=== PATIENT | female | born 1950 | race Caucasian/White ===

== ENCOUNTER → 2017-03-24 | Outpatient (CLI) | payer OTHER, MEDICARE ==
[2017-03-24 07:35] LABS: CH 32.2; CHCM 32.6; HCT 38.8 % (34.0-46.0); HDW 2.49; HGB 12.5 gm/dL (11.4-16.0); MCHC 32.3 g/dL (31.0-37.0); MCV 99.2 fL (80.0-100.0); Mean Platelet Volume 6.7; RBC 3.91 m/uL (3.80-5.40); RDW 13.5 % (11.5-15.5); WBC 7.9 k/uL (3.8-10.6)
[2017-03-24 07:43] LABS: Appearance,Urine Cloudy (Clear); Bacteria,Urine Occasional /hpf; Bilirubin,Urine Negative (Negative); Glucose,Urine (UA) Trace (Negative); Ketones,Urine Negative (Negative); Leukocyte Esterase,Urine Large (Negative); Mucus,Urine Occasional /hpf; Nitrite,Urine Negative (Negative); Particle Count 21335; Protein,Urine 2+ (Negative); RBC,Urine 11 /hpf (0-5); Specific Gravity,Urine 1.022 (1.001-1.035); Squamous Epithelial Cell,Urine 8 /hpf (0-4); UA Billing (MACRO vs. MICRO) MICRO; WBC,Urine 116 /hpf (0-5)
[2017-03-24 09:56] LABS: ALT 30 U/L (9-52); AST 28 U/L (14-36); Alkaline Phosphatase 136 U/L (38-126); Anion Gap 15 mmol/L; Blood Urea Nitrogen 14 mg/dL (7-17); Calcium 9.3 mg/dL (8.4-10.2); Carbon Dioxide 21 mmol/L (22-30); Chloride 108 mmol/L (98-107); Cholesterol 138 mg/dL (<200); Glucose 194 mg/dL (74-99); HDL Cholesterol 61 mg/dL (40-60); Iron 54 ug/dL (37-170); Non-African American GFR(MDRD) 55 (>60 ml/min/1.73 sqM); Potassium 3.8 mmol/L (3.5-5.1); Sodium 144 mmol/L (137-145); Total Bilirubin 0.5 mg/dL (0.2-1.3); Total Protein 7.5 g/dL (6.3-8.2); Triglycerides 252 mg/dL (<150)
[2017-03-24 10:05] LABS: % Iron Saturation 17.1 % (20-50); Total Iron Binding Capacity 315 ug/dL (265-497)
== END | disposition home or self-care (01) ==
LOC: LABWHC1 07:03
PROVIDERS: ATTEND Internal Medicine Interventional Cardiology
DX: N18.3 Chronic kidney disease, stage 3 (moderate) (principal); D50.9 Iron deficiency anemia, unspecified; N39.0 Urinary tract infection, site not specified; R80.9 Proteinuria, unspecified; E21.3 Hyperparathyroidism, unspecified; E55.9 Vitamin D deficiency, unspecified; E78.2 Mixed hyperlipidemia
CPT/HCPCS: 36415; 80053; 80061; 81001; 82043; 82306; 82728; 83540; 83550; 83970; 85027

== ENCOUNTER → 2017-04-29 | Outpatient (CLI) | payer OTHER, MEDICARE ==
[2017-04-29 07:28] LABS: Anion Gap 9 mmol/L; Blood Urea Nitrogen 17 mg/dL (7-17); Calcium 9.3 mg/dL (8.4-10.2); Carbon Dioxide 25 mmol/L (22-30); Chloride 109 mmol/L (98-107); Glucose 111 mg/dL (74-99); Non-African American GFR(MDRD) >60 (>60 ml/min/1.73 sqM); Sodium 143 mmol/L (137-145)
== END | disposition home or self-care (01) ==
LOC: LABWHC1 06:51
PROVIDERS: ATTEND Nurse Practitioner Family
DX: N18.2 Chronic kidney disease, stage 2 (mild) (principal)
CPT/HCPCS: 36415; 80048

== ENCOUNTER 2017-10-22 17:52 | Observation (INO) | payer MEDICARE, OTHER ==
[2017-10-22] MEDS ORDERED: ASPIRIN 81 MG PO STA (18:16)
[2017-10-22] MEDS ORDERED: NITROGLYCERIN OINT 1 INCH/GM PACKET TOPICAL STA (18:16)
--- NOTE | 2017-10-22 18:26 | ED ---
General Adult HPI - General Chief complaint: Chest Pain Stated complaint: chest pressure, has heart Hx Time Seen by Provider: 10/22/17 18:00 Source: patient, RN notes reviewed Mode of arrival: wheelchair Limitations: no limitations - History of Present Illness Initial comments: This is a 67-year-old female presents to the emergency department complaining of chest pain for the last hour and a half. Patient states she is a diabetic with hypertension and high cholesterol per patient states she has a strong family history as well. Patient states the pain radiates up to her left neck. Patient completed a mild shortness of breath. Patient denies any palpitations. Patient denies abdominal pain patient denies nausea vomiting diarrhea. Any recent fever or chills. Patient denies back pain. Patient denies any headache patient denies numbness weakness. Patient denies dizziness lightheadedness or near syncopal episode. - Related Data Home Medications Medication Instructions Recorded Confirmed Atorvastatin [Lipitor] 80 mg PO DAILY 09/11/14 10/22/17 Clopidogrel [Plavix] 75 mg PO DAILY 09/11/14 10/22/17 Ergocalciferol [Vitamin D2 50,000 unit PO Q7D 09/11/14 10/22/17 (DRISDOL)] HYDROcodone/APAP 10-325MG [[place] 2 tab PO TID PRN 09/11/14 10/22/17 10] Insulin Detemir [Levemir] 11 unit SQ HS 09/11/14 10/22/17 Insulin Glulisine [Apidra] 60 unit SQ DAILY 09/11/14 10/22/17 Isosorbide Mononitrate [Imdur] 60 mg PO DAILY 09/11/14 10/22/17 Latanoprost Ophth [Xalatan 0.005%] 1 drop BOTH EYES HS 09/11/14 10/22/17 Metoprolol Tartrate [Lopressor] 25 mg PO BID 09/11/14 10/22/17 Nitroglycerin Sl Tabs [Nitrostat] 0.4 mg SUBLINGUAL Q5M PRN 09/11/14 10/22/17 Aspirin EC [Ecotrin] 81 mg PO DAILY 05/22/16 10/22/17 Dorzolamide HCl/Timolol Maleat 1 drop BOTH EYES BID 05/22/16 10/22/17 [Cosopt Eye Drops] Fexofenadine HCl [Citlaly Allergy] 180 mg PO DAILY PRN 05/22/16 10/22/17 Fluticasone Nasal [place] [Flonase 1 spray EA NOSTRIL DAILY PRN 05/22/16 10/22/17 Nasal [place]] Multivit-Min/Iron/Folic/Lutein 1 tab PO DAILY 05/22/16 10/22/17 [Centrum Silver Women Tablet] Citalopram Hydrobromide [CeleXA] 40 mg PO DAILY 10/22/17 10/22/17 Ferrous Sulfate [Feosol] 325 mg PO DAILY 10/22/17 10/22/17 Furosemide [Lasix] 20 mg PO BID 10/22/17 10/22/17 Hydrocortisone [Hydrocortisone 1 applic TOPICAL BID 10/22/17 10/22/17 0.05%] Insulin NPH Human Isophane 19 unit SQ HS 10/22/17 10/22/17 [humuLIN N] Polyethylene Glycol 3350 [Miralax] 17 gm PO DAILY 10/22/17 10/22/17 Allergies Allergy/AdvReac Type Severity Reaction Status Date / Time diclofenac Allergy Unknown Verified 10/22/17 18:51 peanut Allergy PER Verified 10/22/17 18:51 ALLERGY TEST Penicillins Allergy ITCHING Verified 10/22/17 18:51 AND RED SKIN Review of Systems ROS Statement: Those systems with pertinent positive or pertinent negative responses have been documented in the HPI. ROS Other: All systems not noted in ROS Statement are negative. Past Medical History Past Medical History: Chest Pain / Angina, Diabetes Mellitus, Fibromyalgia, GERD /Reflux, Hyperlipidemia, Hypertension, Myocardial Infarction (ID), Osteoarthritis (OA) Additional Past Medical History / Comment(s): carpal tunnel, retinopathy, glaucoma, neuropathy, eye ailments Last Myocardial Infarction Date:: 10/2013 History of Any Multi-Drug Resistant Organisms: None Reported Past Surgical History: Cholecystectomy, Heart Catheterization, Tubal Ligation Additional Past Surgical History / Comment(s): RIGHT AND LEFT KNEE ARTHROSCOPIC , RIGHT EYE SURGERY, sciatica Past Anesthesia/Blood Transfusion Reactions: No Reported Reaction Past Psychological History: No Psychological Hx Reported Smoking Status: Former smoker Past Alcohol Use History: None Reported Past Drug Use History: None Reported - Past Family History Father Family Medical History: Cancer Mother Family Medical History: Diabetes Mellitus, Myocardial Infarction (ID) General Exam - General Exam Comments Initial Comments: GENERAL: Patient is well-developed and well-nourished. Patient is nontoxic and well- hydrated and is in mild distress. ENT: Neck is soft and supple. No significant lymphadenopathy is noted. Oropharynx is clear. Moist mucous membranes. Neck has full range of motion without eliciting any pain. EYES: The sclera were anicteric and conjunctiva were pink and moist. Extraocular movements were intact and pupils were equal round and reactive to light. Eyelids were unremarkable. PULMONARY: Unlabored respirations. Good breath sounds bilaterally. No audible rales rhonchi or wheezing was noted. CARDIOVASCULAR: There is a regular rate and rhythm without any murmurs gallops or rubs. ABDOMEN: Soft and nontender with normal bowel sounds. No palpable organomegaly was noted. There is no palpable pulsatile mass. SKIN: Skin is clear with no lesions or rashes and otherwise unremarkable. NEUROLOGIC: Patient is alert and oriented x3. Cranial nerves II through XII are grossly intact. Motor and sensory are also intact. Normal speech, volume and content. Symmetrical smile. MUSCULOSKELETAL: Normal extremities with adequate strength and full range of motion. No lower extremity swelling or edema. No calf tenderness. LYMPHATICS: No significant lymphadenopathy is noted PSYCHIATRIC: Normal psychiatric evaluation. Limitations: no limitations Course Vital Signs 10/22/17 10/22/17 17:56 17:59 Temperature 98.6 F Pulse Rate 103 H Respiratory 18 Rate Blood Pressure 220/98 214/93 O2 Sat by Pulse 100 Oximetry Medical Decision Making - Medical Decision Making EKG shows normal sinus rhythm at 76 bpm MO interval is 170 [place] is 74 QT interval 392 QTC is 441 per patient's EKG shows no ST segment elevation or depression or T wave abnormalities are noted. Chest x-ray shows no acute abnormality Patient's labs came back normal as well as her risk factors and clinical presentation I believe the patient was having unstable angina so admitted the patient started heparin. I spoke with Dr. Can he agreed to admit the patient I wrote admitting orders I continue the heparin Nitropaste and aspirin on the floor. I consult cardiology. - Lab Data Result diagrams: 10/22/17 18:13 10/22/17 18:13 Lab Results 10/22/17 10/22/17 10/22/17 Range/Units 18:13 18:13 18:13 WBC 5.9 (3.8-10.6) k/uL RBC 4.06 (3.80-5.40) m/uL Hgb 12.9 (11.4-16.0) gm/dL Hct 38.9 (34.0-46.0) % MCV 95.9 (80.0-100.0) fL MCH 31.7 (25.0-35.0) pg MCHC 33.1 (31.0-37.0) g/dL RDW 13.3 (11.5-15.5) % Plt Count 260 (150-450) k/uL Neutrophils % 64 % Lymphocytes % 27 % Monocytes % 4 % Eosinophils % 3 % Basophils % 0 % Neutrophils # 3.8 (1.3-7.7) k/uL Lymphocytes # 1.6 (1.0-4.8) k/uL Monocytes # 0.2 (0-1.0) k/uL Eosinophils # 0.2 (0-0.7) k/uL Basophils # 0.0 (0-0.2) k/uL PT (9.0-12.0) sec INR (<1.2) APTT (22.0-30.0) sec Sodium 142 (137-145) mmol/L Potassium 4.8 (3.5-5.1) mmol/L Chloride 106 (98-107) mmol/L Carbon Dioxide 24 (22-30) mmol/L Anion Gap 12 mmol/L BUN 14 (7-17) mg/dL Creatinine 0.90 (0.52-1.04) mg/dL Est GFR (MDRD) Af Amer >60 (>60 ml/min/1.73 sqM) Est GFR (MDRD) Non-Af >60 (>60 ml/min/1.73 sqM) Glucose 191 H (74-99) mg/dL Calcium 9.8 (8.4-10.2) mg/dL Magnesium 1.9 (1.6-2.3) mg/dL Total Bilirubin 0.9 (0.2-1.3) mg/dL AST 25 (14-36) U/L ALT 38 (9-52) U/L Alkaline Phosphatase 101 (38-126) U/L Total Creatine Kinase 51 (30-135) U/L CK-MB (CK-2) 0.5 (0.0-2.4) ng/mL CK-MB (CK-2) Rel Index 1.0 Troponin I <0.012 (0.000-0.034) ng/mL Total Protein 7.4 (6.3-8.2) g/dL Albumin 4.0 (3.5-5.0) g/dL 10/22/17 Range/Units 18:13 WBC (3.8-10.6) k/uL RBC (3.80-5.40) m/uL Hgb (11.4-16.0) gm/dL Hct (34.0-46.0) % MCV (80.0-100.0) fL MCH (25.0-35.0) pg MCHC (31.0-37.0) g/dL RDW (11.5-15.5) % Plt Count (150-450) k/uL Neutrophils % % Lymphocytes % % Monocytes % % Eosinophils % % Basophils % % Neutrophils # (1.3-7.7) k/uL Lymphocytes # (1.0-4.8) k/uL Monocytes # (0-1.0) k/uL Eosinophils # (0-0.7) k/uL Basophils # (0-0.2) k/uL PT 10.0 (9.0-12.0) sec INR 1.0 (<1.2) APTT 22.8 (22.0-30.0) sec Sodium (137-145) mmol/L Potassium (3.5-5.1) mmol/L Chloride (98-107) mmol/L Carbon Dioxide (22-30) mmol/L Anion Gap mmol/L BUN (7-17) mg/dL Creatinine (0.52-1.04) mg/dL Est GFR (MDRD) Af Amer (>60 ml/min/1.73 sqM) Est GFR (MDRD) Non-Af (>60 ml/min/1.73 sqM) Glucose (74-99) mg/dL Calcium (8.4-10.2) mg/dL Magnesium (1.6-2.3) mg/dL Total Bilirubin (0.2-1.3) mg/dL AST (14-36) U/L ALT (9-52) U/L Alkaline Phosphatase (38-126) U/L Total Creatine Kinase (30-135) U/L CK-MB (CK-2) (0.0-2.4) ng/mL CK-MB (CK-2) Rel Index Troponin I (0.000-0.034) ng/mL Total Protein (6.3-8.2) g/dL Albumin (3.5-5.0) g/dL Critical Care Time Critical Care Time: Yes Total Critical Care Time: 35 Disposition Clinical Impression: Unstable angina pectoris Disposition: ADMITTED IP TO THIS HOSP Referrals: Tim Osborn MD [Primary Care Provider] - 1-2 days Time of Disposition: 19:09
[2017-10-22 18:33] LABS: Basophils % (A) 0 %; Eosinophils # (A) 0.2 k/uL (0-0.7); Eosinophils % (A) 3 %; HCT 38.9 % (34.0-46.0); HGB 12.9 gm/dL (11.4-16.0); Lymphocytes # (A) 1.6 k/uL (1.0-4.8); Lymphocytes % (A) 27 %; MCH 31.7 pg (25.0-35.0); MCHC 33.1 g/dL (31.0-37.0); MCV 95.9 fL (80.0-100.0); Mean Platelet Volume 6.7; Monocytes # (A) 0.2 k/uL (0-1.0); Monocytes % (A) 4 %; Neutrophils # (A) 3.8 k/uL (1.3-7.7); Neutrophils % (A) 64 %; Platelet Count 260 k/uL (150-450); RBC 4.06 m/uL (3.80-5.40); RDW 13.3 % (11.5-15.5); WBC 5.9 k/uL (3.8-10.6)
[2017-10-22 18:41] LABS: ALT 38 U/L (9-52); AST 25 U/L (14-36); Alkaline Phosphatase 101 U/L (38-126); Anion Gap 12 mmol/L; Blood Urea Nitrogen 14 mg/dL (7-17); Calcium 9.8 mg/dL (8.4-10.2); Carbon Dioxide 24 mmol/L (22-30); Chloride 106 mmol/L (98-107); Glucose 191 mg/dL (74-99); Magnesium 1.9 mg/dL (1.6-2.3); Potassium 4.8 mmol/L (3.5-5.1); Sodium 142 mmol/L (137-145); Total Bilirubin 0.9 mg/dL (0.2-1.3); Total Protein 7.4 g/dL (6.3-8.2)
[2017-10-22 18:46] LABS: Partial Thromboplastin Time 22.8 sec (22.0-30.0)
[2017-10-22 18:52] LABS: Creatine Kinase 51 U/L (30-135)
[2017-10-22 19:05] LABS: Creatine Kinase MB 0.5 ng/mL (0.0-2.4); Troponin I <0.012 ng/mL (0.000-0.034)
[2017-10-22] MEDS ORDERED: HEPARIN SODIUM,PORCINE 5,000 UNIT/ML 1 ML VIAL IV ONE (19:10)
[2017-10-22] MEDS ORDERED: LABETALOL 5 MG/ML VIAL MDV IVP STA (19:11)
[2017-10-22] MEDS ORDERED: NITROGLYCERIN SL TABS 0.4 MG TAB SUBLINGUAL PRN ×2 (19:12→20:56)
[2017-10-22] MEDS ORDERED: HEPARIN SOD,PORK IN 0.45% NACL 25,000 UNIT in 0.45% NACL 1 500ML.BAG IV SCH (19:15)
--- NOTE | 2017-10-22 19:53 | XR ---
EXAMINATION TYPE: XR chest 2V DATE OF EXAM: 10/22/2017 COMPARISON: May 22, 2016 HISTORY: Chest pain TECHNIQUE: Frontal and lateral views of the chest are obtained. FINDINGS: The lungs are clear. No pneumothorax or pleural effusion is identified. Cardiac silhouette is within normal limits. IMPRESSION: No acute cardiopulmonary process.
[2017-10-22 20:41] LABS: Glucose,Whole Blood 165 mg/dL (75-99)
[2017-10-22] MEDS ORDERED: HYDROCORTISONE 1% CREAM 30 GM TUBE TOPICAL PRN (20:56)
[2017-10-22] MEDS ORDERED: FLUTICASONE 50MCG/SPRAY NASAL 16GM EA NOSTRIL PRN (20:56)
[2017-10-22] MEDS ORDERED: LORATADINE 10 MG TAB PO PRN (20:56)
[2017-10-22] MEDS ORDERED: HYDROcodone/APAP 10-325MG 1 EACH TAB PO PRN (20:56)
[2017-10-22] MEDS ORDERED: LATANOPROST 0.005% OPHTH DROPS 2.5 ML BTL RIGHT EYE SCH (21:00)
[2017-10-22] MEDS ORDERED: INSULIN NPH 300 UNIT/3 ML VIAL SQ SCH (21:00)
[2017-10-22] MEDS ORDERED: ACETAMINOPHEN TAB 325 MG TAB PO PRN (21:08)
[2017-10-22] MEDS ORDERED: INSULIN GLULISINE SQ SCH (21:15)
[2017-10-22] MEDS ORDERED: INSULIN ASPART 100 UNIT/ML 1 ML 10 ML VIAL SQ SCH (21:15)
[2017-10-22] MEDS: ATORVASTATIN 80 MG TAB PO SCH (23:01)
[2017-10-22] MEDS: ASPIRIN 81 MG PO SCH (23:01)
[2017-10-22] MEDS: DORZOLAMIDE-TIMOLOL 2-0.5% DROPS 10 ML BTL BOTH EYES SCH (23:01)
[2017-10-22] MEDS: METOPROLOL TARTRATE 25 MG TAB PO SCH (23:02)
[2017-10-22] MEDS: FUROSEMIDE 20 MG TAB PO SCH (23:02)
[2017-10-23 01:41] LABS: Creatine Kinase MB 0.8 ng/mL (0.0-2.4)
[2017-10-23 01:49] LABS: Troponin I 0.036 ng/mL (0.000-0.034)
[2017-10-23] MEDS: NITROGLYCERIN OINT 1 INCH/GM PACKET TOPICAL SCH ×3 (02:45→12:09)
[2017-10-23 03:39] VITALS: RESP 18
[2017-10-23 03:59] LABS: Glucose,Whole Blood 62 mg/dL (75-99)
[2017-10-23 04:18] LABS: Glucose,Whole Blood 81 mg/dL (75-99)
[2017-10-23] MEDS ORDERED: HEPARIN SODIUM,PORCINE 5,000 UNIT/ML 1 ML VIAL IV PRN (05:11)
[2017-10-23 06:05] LABS: Glucose,Whole Blood 124 mg/dL (75-99)
[2017-10-23] MEDS: INSULIN ASPART 100 UNIT/ML 1 ML 10 ML VIAL SQ SCH ×2 (06:15→12:10)
[2017-10-23 06:29] LABS: Basophils % (A) 1 %; Eosinophils # (A) 0.3 k/uL (0-0.7); Eosinophils % (A) 4 %; HCT 36.3 % (34.0-46.0); HGB 11.9 gm/dL (11.4-16.0); Lymphocytes # (A) 1.9 k/uL (1.0-4.8); Lymphocytes % (A) 28 %; MCH 31.8 pg (25.0-35.0); MCHC 32.9 g/dL (31.0-37.0); MCV 96.7 fL (80.0-100.0); Mean Platelet Volume 6.7; Monocytes # (A) 0.3 k/uL (0-1.0); Monocytes % (A) 5 %; Neutrophils # (A) 3.9 k/uL (1.3-7.7); Neutrophils % (A) 60 %; Platelet Count 275 k/uL (150-450); RBC 3.75 m/uL (3.80-5.40); RDW 13.5 % (11.5-15.5); WBC 6.5 k/uL (3.8-10.6)
[2017-10-23 07:10] LABS: Creatine Kinase MB 0.9 ng/mL (0.0-2.4)
[2017-10-23 07:18] LABS: Troponin I 0.053 ng/mL (0.000-0.034)
[2017-10-23 07:24] LABS: Anion Gap 7 mmol/L; Blood Urea Nitrogen 18 mg/dL (7-17); Calcium 9.8 mg/dL (8.4-10.2); Carbon Dioxide 28 mmol/L (22-30); Chloride 108 mmol/L (98-107); Cholesterol 125 mg/dL (<200); Glucose 131 mg/dL (74-99); HDL Cholesterol 54 mg/dL (40-60); LDL Cholesterol,Calculated 49 mg/dL (0-99); Potassium 4.3 mmol/L (3.5-5.1); Sodium 143 mmol/L (137-145); Triglycerides 111 mg/dL (<150)
[2017-10-23] MEDS ORDERED: INSULIN ASPART 100 UNIT/ML 1 ML 10 ML VIAL SQ SCH ×2 (07:30→12:30)
[2017-10-23] MEDS: ATORVASTATIN 80 MG TAB PO SCH (08:07)
[2017-10-23] MEDS: ASPIRIN 81 MG PO SCH (08:07)
[2017-10-23] MEDS: FUROSEMIDE 20 MG TAB PO SCH (08:07)
[2017-10-23] MEDS: METOPROLOL TARTRATE 25 MG TAB PO SCH (08:08)
[2017-10-23] MEDS: DORZOLAMIDE-TIMOLOL 2-0.5% DROPS 10 ML BTL BOTH EYES SCH (08:10)
[2017-10-23] MEDS ORDERED: CLOPIDOGREL 75 MG TAB PO SCH (09:00)
[2017-10-23] MEDS ORDERED: POLYETHYLENE GLYCOL 3350 17 GM POWD.PACK PO SCH (09:00)
[2017-10-23] MEDS ORDERED: FERROUS SULFATE 325 MG TAB PO SCH (09:00)
[2017-10-23] MEDS ORDERED: CITALOPRAM HYDROBROMIDE 20 MG TAB PO SCH (09:00)
[2017-10-23] MEDS ORDERED: ASPIRIN 325 MG TAB PO SCH (09:00)
[2017-10-23] MEDS ORDERED: INSULIN DETEMIR 100 UNIT/ML 10 ML VIAL SQ SCH (09:00)
[2017-10-23] MEDS ORDERED: ISOSORBIDE MONONITRATE ER 60 MG TAB.ER.24H PO SCH (09:00)
[2017-10-23 09:16] LABS: Appearance,Urine Clear (Clear); Bacteria,Urine Rare /hpf; Bilirubin,Urine Negative (Negative); Blood,Urine Negative (Negative); Color,Urine Yellow; Glucose,Urine (UA) Negative (Negative); Hyaline Casts,Urine 6 /lpf (0-2); Ketones,Urine Negative (Negative); Leukocyte Esterase,Urine Small (Negative); Mucus,Urine Rare /hpf; Nitrite,Urine Negative (Negative); Protein,Urine Negative (Negative); RBC,Urine 2 /hpf (0-5); Squamous Epithelial Cell,Urine 1 /hpf (0-4); Urobilinogen,Urine <2.0 mg/dL (<2.0); WBC,Urine 2 /hpf (0-5)
[2017-10-23 11:43] VITALS: BMI 42.2
[2017-10-23 11:50] LABS: Glucose,Whole Blood 152 mg/dL (75-99)
[2017-10-23 11:52] VITALS: BP 150/67; PULSE 62; TEMP 96.1
[2017-10-23] MEDS ORDERED: MULTIVITAMINS, THERA 1 EACH TAB PO SCH (12:00)
--- NOTE | 2017-10-23 12:54 | HP ---
HISTORY AND PHYSICAL NEW DATA: She is a 5 foot 7 inches height, weight 122.3 kg, BSA 2.30 m2, BMI 42.2 kg/m2. ALLERGY: DICLOFENAC, PEANUTS AND PENICILLIN. CHIEF COMPLAINT: The patient presented. She is a patient of Dr. Osborn and in the temporary absence for holidays. Dr. Can seeing the patient and dictating the history and physical. The patient was seen in the emergency room and subsequently admitted to the hospital and seen by Gurjit Yan. At that time they did a chest x-ray and was no acute pulmonary abnormality, but she presented with the chief complaint of chest pain. HISTORY OF PRESENT ILLNESS: A 67-year-old white female presented to the emergency department with chest pain which was lasted 1 hour and half according to Dr. Del Valle. The patient is a diabetic and hypertensive, hyperlipidemic, with the underlying strong family history. Her chest pain was present at the upper left upper chest and that pain went to the neck, radiated to the neck and that was in the 8/10 grade. She had nausea with it. No vomiting. No palpitation and no blurred vision. She did 1 nitroglycerin, but no aspirin and subsequently received another nitroglycerin at home, however, did not give much of relief. She subsequently called to come to the hospital and she had nitroglycerin caused her headache. The patient has x2 myocardial infarction and the last one was 2013 and she underwent cardiac catheterization by Dr. Juarez with no stent placement and that was 4 years ago. PAST MEDICAL HISTORY: On the past medical history she has history of nosebleeds because of the Plavix and 2 weeks ago she had left leg numbness from the buttocks area down to the leg and she was not able at that time to walk with her cane and at that time, Dr. Osborn saw the patient and gave her prednisone and gradual descended and she has arthritis of the back. Past history of fibromyalgia and she has also history prior to that she has nausea, vomiting twice and the etiology was unknown at that time. Her current chest pain arrived at 5:00 pm last night and with a chest pressure across the left side of the chest, radiated to the neck was 8/10 grade and as mentioned above. Her other past medical history as mentioned, diabetes mellitus type 2, insulin dependent, and she has been diabetic for 36 years with the underlying diabetic neuropathy. She has not taking any longer Neurontin, but she has taken hydrocodone 2 tablet every 8 hour p.r.n. She tried to avoid being addiction to that and she take it has p.r.n. when the pain gets worse. She had history of hypertension as mentioned, arthritis, and she had glaucoma and fibromyalgia. She had kidney failure in 1 year ago, however, that was cleared and Dr. Jimenez, Nephrology did clear her up from the kidney function. SURGICAL HISTORY: She had a bilateral carpal tunnel of the wrist of the hand. Also, she had a bilateral arthroscopy of the knee. She had laparoscopic cholecystectomy and she had a tubal ligation and she had four eye surgeries including cataract and glaucoma. Her eye doctor, Dr. Coulter and Dr. Gutierrez at the [facility]. She had also cyst on her back with the pilonidal cyst and that was removed as well. OBSTETRIC HISTORY: She had 4 pregnancies that ended in miscarriage and no hysterectomy. SOCIAL HISTORY: Smoking, she had quit smoking 40 years ago and she also stopped drinking at that time, but she smoked before 10 years total. 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 She had hemoglobin A1c 6.1 in the past. However, when she gets the pain in the back and numbness in the left leg and started on steroid, her hemoglobin jumped up to 7.1. ALLERGIES: On the allergy has been mentioned above. MEDICATIONS: Her current medication was she was on: 1. Lipitor for hyperlipidemia 80 mg once a daily. 2. Clopidogrel. 3. Plavix 75 mg daily. 4. Vitamin D2 50,000 every once a week. 5. She has been on hydrocodone 10/325 two tablets t.i.d. p.r.n. and she tried not to take it except as needed maybe once or twice a week. 6. She is on Levemir insulin and 11 units at bedtime. 7. Apidra 60 units subcu daily. Her endocrinology is Dr. Dickey the new baby counselor that he works with Dr. Stefania Marcus. 8. She is also on isosorbide mononitrate Imdur 60 mg daily. 9. She has Lopressor 25 mg twice a day. 10.Nitroglycerin sublingual 0.4 mg. 11.Aspirin enteric-coated 81 mg daily. 12.She has eyedrops Latanoprost, Xalatan 0.005% 1 drop in both eyes as well as she has been on Cosopt, eyedrops which 1 drop in both eyes. 13.She is on fluticasone nasal spray for her nasal congestion. 14.Multivitamin with iron and folic acid and lutein 1 tablet daily. 15.She is on citalopram for underlying anxiety and depression. 16.Ferrous sulfate 325 mg daily. 17.Furosemide 20 mg b.i.d. 18.Hydrocortisone cream twice a day. 19.Insulin NPH 19 units at bedtime. 20.Polyethylene glycol 17 g in juice or water. REVIEW OF THE SYSTEM: Neuropsychiatry: She had no headache and no blurred vision. No falling attacks. No history of strokes. On the cardiovascular: Currently the chest pain that arrived last night and she has been seen before and followed by Dr. Juarez and she had a cardiac cath as mentioned in the past in 2013 or 2012. On the respiratory: No cough or expectoration. GI: No hematochezia. No hematochezia or hematemesis or melena. However, she has history of recently 2 weeks ago with epistaxis and that was not present at this time. : She had no dysuria or hematuria, however, positive incontinent and that is continuous, which is minimal. Musculoskeletal: She had fibromyalgia and that has been chronic and she has been able to handle it with the treatment given by Dr. Osborn, the attending. With reviewing of the system was otherwise initially negative as I reviewed the 14 points. With history of GERD disease. On the history as mentioned as mentioned above family history of cancer and diabetes mellitus. No history of blood transfusion reaction, and she has a cardiac catheterization as mention. PHYSICAL EXAMINATION: General examination: The patient is well-developed, obese, nourished, well hydrated. She had the chest pain at that time. However, on the floor she is fine. No chest pain at this time. On the review of her vital signs indicating that today her temperature 96.1 orally, pulse 62, respiratory rate 18, her blood pressure 150/67 with a mean blood pressure 94 previous to that 141/69 with a mean 93 and pulse ox was 96%. On the exam the patient is conscious, alert, oriented x3. No chest pain at the time, the neck was supple and oropharynx was normal. She had several surgery and the implant on the right eye with irregular pupil in both sides and with several surgeries by the procurement intern. Neck was supple. No JVD. No thyromegaly. No lymphadenopathy. Trachea midline and the chest was mildly increased anteroposterior diameter with normal breath sounds and no wheezes. No rhonchi and the heart PMI in the 5th intercostal space with normal S1, S2. No gallops with the mild cardiomegaly. The abdomen was soft and nontender. Positive bowel sounds. No organ enlargement and the extremities: She had a varicose veins but no edema and positive pulses bilateral and symmetrical. No currently numbness of the left leg. Sensation was intact. However, she had diabetic neuropathy with the 36 years of insulin dependent. Neurologically: Stable. ASSESSMENT: 1. Chest pain with the underlying unstable angina, mild elevation of troponin. 2. Underlying history of hypertension with hypertensive heart disease. 3. Diabetes mellitus type 2, insulin dependent. 4. History of fibromyalgia. 5. Hyperlipidemia. 6. History of glaucoma. PLAN: The patient in currently on heparin protocol as well and she is on the Plavix and will be seen by Dr. Rodger Marcus right away and will be evaluated. The patient is currently on observation status and tomorrow is and today is Kenvir Eve and she was concerned about her being on observation and how she can pay her bills with being outpatient and we will be discussing with her RN as well as she will relay that to Dr. Rodger Marcus. If there is no further investigation, she will be able to go home. We also Dr. Rodger Marcus ordered another set of troponin to see if this will be continue to rise or need further testing. MMODL / IJN: [id number] /
--- NOTE | 2017-10-23 13:31 | P.DS ---
Providers Date of admission: 10/22/17 19:09 Discharge on 10/23/2017 from observation. Final diagnosis chest pain with possible unstable angina, minimal troponin elevation. And cleared by cardiology Dr. LUIS ANTONIO Marcus for discharge Diabetes mellitus type 2 insulin-dependent. Fibromyalgia Hypertension was hypertensive heart disease. Advanced degenerative osteoarthritis as well as discogenic disease. Hyperlipidemia She is on Plavix. Patient stable on discharge without chest pain. History and physical dictated dictation #[id number]. On exam [id number] on discharge. No chest pain HEENT was negative, neck was supple, chest was clear, heart was regular sinus rhythm. Abdomen was soft positive bowel sounds no tenderness of the 4 quadrants. Extremities no edema and positive pulses. Neurologically stable ambulatory. Assessment on discharge stable without any chest pain laboratory already reviewed by Dr. LUIS ANTONIO Marcus cardiology and cleared for discharge Follow-up with Dr. Osborn as well as Dr. Billings cardiology next week, PCP has Dr. Osborn. Patient will be discharged on her home home medication no new medicine added to her discharge. Expected date of discharge: 10/23/17 Attending physician: Tim Osborn Consults: 10/22/17 19:12 Consult Physician Urgent Consulting Provider: [facility] Consult Reason/Comments: Unstable angina Do you want consulting provider notified?: Yes Primary care physician: Tim Osborn Plan - Discharge Summary New Discharge Prescriptions: Continue Insulin Detemir [Levemir] 11 unit SQ DAILY Atorvastatin [Lipitor] 80 mg PO HS Metoprolol Tartrate [Lopressor] 25 mg PO BID Isosorbide Mononitrate [Imdur] 60 mg PO DAILY Clopidogrel [Plavix] 75 mg PO DAILY HYDROcodone/APAP 10-325MG [[place] 10-325] 2 tab PO TID PRN PRN Reason: Pain Nitroglycerin Sl Tabs [Nitrostat] 0.4 mg SUBLINGUAL Q5M PRN PRN Reason: Chest Pain Latanoprost Ophth [Xalatan 0.005%] 1 drop RIGHT EYE HS Insulin Glulisine [Apidra] 18 unit SQ AC-BRKFST Ergocalciferol [Vitamin D2 (DRISDOL)] 50,000 unit PO Q7D Aspirin EC [Ecotrin Low Dose] 81 mg PO HS Dorzolamide HCl/Timolol Maleat [Cosopt Eye Drops] 1 drop BOTH EYES BID Multivit-Min/Iron/Folic/Lutein [Centrum Silver Women Tablet] 1 tab PO DAILY Fexofenadine HCl [Citlaly Allergy] 180 mg PO HS PRN PRN Reason: Allergy Symptoms Fluticasone Nasal [place] [Flonase Nasal [place]] 1 spray EA NOSTRIL DAILY PRN PRN Reason: Congestion Hydrocortisone [Hydrocortisone 0.05%] 1 applic TOPICAL BID Polyethylene Glycol 3350 [Miralax] 17 gm PO DAILY Ferrous Sulfate [Iron (65 MG Elemental)] 325 mg PO DAILY Furosemide [Lasix] 20 mg PO BID Citalopram Hydrobromide [CeleXA] 40 mg PO DAILY Insulin NPH Human Isophane [humuLIN N] 21 unit SQ HS Insulin Glulisine [Apidra] 0 unit SQ ACHS Insulin Glulisine [Apidra] 15 unit SQ AC-SUPPER Insulin Glulisine [Apidra] 14 unit SQ AC-LUNCH Discharge Medication List Atorvastatin [Lipitor] 80 mg PO HS 09/11/14 [History] Clopidogrel [Plavix] 75 mg PO DAILY 09/11/14 [History] Ergocalciferol [Vitamin D2 (DRISDOL)] 50,000 unit PO Q7D 09/11/14 [History] HYDROcodone/APAP 10-325MG [[place] 10-325] 2 tab PO TID PRN 09/11/14 [History] Insulin Detemir [Levemir] 11 unit SQ DAILY 09/11/14 [History] Insulin Glulisine [Apidra] 18 unit SQ AC-BRKFST 09/11/14 [History] Isosorbide Mononitrate [Imdur] 60 mg PO DAILY 09/11/14 [History] Latanoprost Ophth [Xalatan 0.005%] 1 drop RIGHT EYE HS 09/11/14 [History] Metoprolol Tartrate [Lopressor] 25 mg PO BID 09/11/14 [History] Nitroglycerin Sl Tabs [Nitrostat] 0.4 mg SUBLINGUAL Q5M PRN 09/11/14 [History] Aspirin EC [Ecotrin Low Dose] 81 mg PO HS 05/22/16 [History] Dorzolamide HCl/Timolol Maleat [Cosopt Eye Drops] 1 drop BOTH EYES BID 05/22/16 [History] Fexofenadine HCl [Citlaly Allergy] 180 mg PO HS PRN 05/22/16 [History] Fluticasone Nasal [place] [Flonase Nasal [place]] 1 spray EA NOSTRIL DAILY PRN 05/22 [History] Multivit-Min/Iron/Folic/Lutein [Centrum Silver Women Tablet] 1 tab PO DAILY [History] Citalopram Hydrobromide [CeleXA] 40 mg PO DAILY 10/22/17 [History] Ferrous Sulfate [Iron (65 MG Elemental)] 325 mg PO DAILY 10/22/17 [History] Furosemide [Lasix] 20 mg PO BID 10/22/17 [History] Hydrocortisone [Hydrocortisone 0.05%] 1 applic TOPICAL BID 10/22/17 [History] Insulin Glulisine [Apidra] 0 unit SQ ACHS 10/22/17 [History] Insulin Glulisine [Apidra] 14 unit SQ AC-LUNCH 10/22/17 [History] Insulin Glulisine [Apidra] 15 unit SQ AC-SUPPER 10/22/17 [History] Insulin NPH Human Isophane [humuLIN N] 21 unit SQ HS 10/22/17 [History] Polyethylene Glycol 3350 [Miralax] 17 gm PO DAILY 10/22/17 [History] Follow up Appointment(s)/Referral(s): Tim Osborn MD [Primary Care Provider] - 1-2 days
[2017-10-23 20:15] LABS: Hemoglobin A1C 7.1 % (4.0-6.0)
--- NOTE | 2017-10-24 08:49 | CONS ---
CONSULTATION This is a 67-year-old lady, a patient who sees Dr. Juarez in the outpatient setting. Her primary care physician is Dr. Tim Osborn. She came into the hospital with complaints of left anterior chest pain with actually tenderness which she is able to show me exactly where she feels her tenderness and this has gotten better. She has a history in the past of acute renal failure, chronic diffuse CAD based on previous cardiac cath and is known to have borderline troponin elevation in the past. She comes in with symptoms of nondescript atypical chest pain and had a borderline troponin elevation in the range of 0.03 0.05 and 0.04. All of these are flat. The pattern is not suggestive of any myocardial injury. The patient is resting comfortably without symptoms. Her pain in the left anterior chest is almost reproducible. She is asymptomatic at the time of my evaluation. EKG also revealed a sinus rhythm with nonspecific ST abnormality. PAST MEDICAL HISTORY: 1. Remarkable for type 2 diabetes with mild renal failure. She had an episode of acute renal failure, but from which she recovered nicely. 2. Hypertension. 3. CAD, diffuse in nature, on medical therapy. 4. History of anemia. 5. History of this COPD/bronchial asthma. ALLERGIES: Patient is allergic to penicillin. She also has history of underlying fibromyalgia. She is status post cholecystectomy and tubal ligation. MEDICATIONS: At home include Imdur 60 mg daily, Lopressor 25 mg b.i.d., Lasix 20 mg b.i.d., insulin, she takes Lipitor 80 mg daily, Plavix 75 mg daily, aspirin 81 mg daily. EXAMINATION: Blood pressure is 140/70, pulse rate is 70 per minute regular HEENT unremarkable. Fundus was not examined by me. NECK: Supple. There is bilateral soft carotid bruit and apparently patient had a recent carotid Doppler that was unremarkable. Heart exam reveals S1, S2 heard normally with a short systolic murmur at the base. Second heart sound is preserved lungs are clear. ABDOMEN: Soft, nontender. There is tenderness in the left anterior chest wall. Lower extremities reveal palpable pulses. No edema. Central nervous system is normal EKG revealed sinus mechanism, no acute changes, minor nonspecific ST abnormality. Laboratory data suggests borderline equivocal troponins not suggestive of myocardial injury. IMPRESSION: 1. Atypical chest pain. 2. History of known CAD. 3. Hypertension. 4. History of type 2 diabetes mellitus. RECOMMENDED: I am recommending that we can increase activity. If she has no further symptoms she can be discharged and follow up with Dr. Juarez and Dr. Osborn in outpatient. I discussed my thoughts in detail with the patient. Thank you very much for the consult. VALERIE / INGRIS: [id number] /
[2017-10-29] MEDS ORDERED: ERGOCALCIFEROL 50,000 UNIT CAP PO SCH (09:00)
== END 2017-10-23 14:05 | disposition home or self-care (01) ==
LOC: EC 17:52 → 6SEL 19:09
PROVIDERS: ADMIT Internal Medicine; ATTEND Internal Medicine
DX: R07.89 Other chest pain (principal); R74.8 Abnormal levels of other serum enzymes; R11.0 Nausea; E78.5 Hyperlipidemia, unspecified; E78.00 Pure hypercholesterolemia, unspecified; K21.9 Gastro-esophageal reflux disease without esophagitis; I13.10 Hypertensive heart and chronic kidney disease without heart failure, with stage 1 through stage 4 chronic kidney disease, or unspecified chronic kidney disease; N18.9 Chronic kidney disease, unspecified; E11.319 Type 2 diabetes mellitus with unspecified diabetic retinopathy without macular edema; E11.40 Type 2 diabetes mellitus with diabetic neuropathy, unspecified; E11.22 Type 2 diabetes mellitus with diabetic chronic kidney disease; F41.9 Anxiety disorder, unspecified; F32.9 Major depressive disorder, single episode, unspecified; M79.7 Fibromyalgia; M19.90 Unspecified osteoarthritis, unspecified site; M54.30 Sciatica, unspecified side; D64.9 Anemia, unspecified; H40.9 Unspecified glaucoma; J44.9 Chronic obstructive pulmonary disease, unspecified; E66.9 Obesity, unspecified; Z68.41 Body mass index [BMI] 40.0-44.9, adult; I25.2 Old myocardial infarction; I25.10 Atherosclerotic heart disease of native coronary artery without angina pectoris; Z87.891 Personal history of nicotine dependence; Z79.899 Other long term (current) drug therapy; Z79.02 Long term (current) use of antithrombotics/antiplatelets; Z79.4 Long term (current) use of insulin; Z79.82 Long term (current) use of aspirin; Z88.8 Allergy status to other drugs, medicaments and biological substances; Z91.010 Allergy to peanuts; Z88.0 Allergy status to penicillin; Z80.9 Family history of malignant neoplasm, unspecified; M47.819 Spondylosis without myelopathy or radiculopathy, site unspecified
CPT/HCPCS: 99291; 96374; 96376; 36415; 94760; 83880; 80061; 80053; 80048; 82550 ×2; 82553 ×2; 83735; 84484 ×2; 85025 ×2; 85610; 85730 ×2; 81001; 87086; 83036; 71020; G0378 ×2; J1644 ×3; 93005

== ENCOUNTER 2018-01-22 10:25 | Inpatient (IN) | payer OTHER, MEDICARE ==
[2018-01-22] MEDS ORDERED: ASPIRIN 81 MG PO STA (10:40)
[2018-01-22] MEDS ORDERED: NITROGLYCERIN OINT 1 INCH/GM PACKET TOPICAL STA (10:40)
--- NOTE | 2018-01-22 10:43 | ED ---
General Adult HPI - General Chief complaint: Chest Pain Stated complaint: Chest Pain Time Seen by Provider: 01/22/18 10:25 Source: patient, EMS, RN notes reviewed Mode of arrival: EMS - History of Present Illness Initial comments: This is a 67-year-old female with past medical history significant for SD, diabetes, hypertension and high cholesterol. Patient states she has pain in her neck bilaterally and it radiates up into her left jaw. Patient states she was also nauseated at about 9:00 and vomited times one. Patient states she took a nitroglycerin at this time and help with the pain considerably. She states she had a little bit of chest pressure but no difficulty breathing or shortness of breath. Patient denies abdominal pain. Patient denies any recent fever chills or cough. Patient denies dizziness lightheadedness. Patient denies any increased swelling of her legs or any calf tenderness. - Related Data Home Medications Medication Instructions Recorded Confirmed Atorvastatin [Lipitor] 80 mg PO HS 09/11/14 01/22/18 Clopidogrel [Plavix] 75 mg PO DAILY 09/11/14 01/22/18 Ergocalciferol [Vitamin D2 50,000 unit PO SA 09/11/14 01/22/18 (DRISDOL)] HYDROcodone/APAP 10-325MG [[place] 2 tab PO Q4H PRN 09/11/14 01/22/18 10-325] Insulin Detemir [Levemir] 14 unit SQ DAILY 09/11/14 01/22/18 Insulin Glulisine [Apidra] 18 unit SQ AC-BRKFST 09/11/14 01/22/18 Isosorbide Mononitrate [Imdur] 60 mg PO DAILY 09/11/14 01/22/18 Latanoprost Ophth [Xalatan 0.005%] 1 drop RIGHT EYE HS 09/11/14 01/22/18 Metoprolol Tartrate [Lopressor] 25 mg PO BID 09/11/14 01/22/18 Nitroglycerin Sl Tabs [Nitrostat] 0.4 mg SUBLINGUAL Q5M PRN 09/11/14 01/22/18 Aspirin EC [Ecotrin Low Dose] 81 mg PO HS 05/22/16 01/22/18 Fexofenadine HCl [Citlaly Allergy] 180 mg PO HS PRN 05/22/16 01/22/18 Fluticasone Nasal [place] [Flonase 1 spray EA NOSTRIL DAILY PRN 05/22/16 01/22/18 Nasal [place]] Multivit-Min/Iron/Folic/Lutein 1 tab PO DAILY 05/22/16 01/22/18 [Centrum Silver Women Tablet] Citalopram Hydrobromide [CeleXA] 40 mg PO DAILY 10/22/17 01/22/18 Ferrous Sulfate [Iron (65 MG 325 mg PO DAILY 10/22/17 01/22/18 Elemental)] Furosemide [Lasix] 20 mg PO BID 10/22/17 01/22/18 Hydrocortisone [Hydrocortisone 1 applic TOPICAL BID PRN 10/22/17 01/22/18 0.05%] Insulin Glulisine [Apidra] 14 unit SQ AC-LUNCH 10/22/17 01/22/18 Insulin Glulisine [Apidra] 16 unit SQ AC-SUPPER 10/22/17 01/22/18 Insulin Glulisine [Apidra] See Protocol SQ ACHS 10/22/17 01/22/18 Insulin NPH Human Isophane 21 unit SQ HS 10/22/17 01/22/18 [humuLIN N] Polyethylene Glycol 3350 [Miralax] 17 gm PO DAILY PRN 10/22/17 01/22/18 Ciprofloxacin HCl [Cipro] 250 mg PO Q12HR 01/22/18 01/22/18 Montelukast [Singulair] 10 mg PO HS 01/22/18 01/22/18 Omeprazole 40 mg PO AC-BRKFST 01/22/18 01/22/18 Timolol 0.5% Ophth Soln [Timoptic 1 drop BOTH EYES BID 01/22/18 01/22/18 0.5% Ophth Soln] Allergies Allergy/AdvReac Type Severity Reaction Status Date / Time diclofenac Allergy Unknown Verified 01/22/18 11:31 peanut Allergy PER Verified 01/22/18 11:31 ALLERGY TEST Penicillins Allergy ITCHING Verified 01/22/18 11:31 AND RED SKIN Review of Systems ROS Statement: Those systems with pertinent positive or pertinent negative responses have been documented in the HPI. ROS Other: All systems not noted in ROS Statement are negative. Past Medical History Past Medical History: Chest Pain / Angina, Diabetes Mellitus, Fibromyalgia, GERD /Reflux, Hyperlipidemia, Hypertension, Myocardial Infarction (SD), Osteoarthritis (OA) Additional Past Medical History / Comment(s): carpal tunnel, retinopathy, glaucoma, neuropathy, eye ailments Last Myocardial Infarction Date:: 10/2013 History of Any Multi-Drug Resistant Organisms: None Reported Past Surgical History: Cholecystectomy, Heart Catheterization, Tubal Ligation Additional Past Surgical History / Comment(s): RIGHT AND LEFT KNEE ARTHROSCOPIC , RIGHT EYE SURGERY, sciatica Past Anesthesia/Blood Transfusion Reactions: No Reported Reaction Past Psychological History: No Psychological Hx Reported Smoking Status: Former smoker Past Alcohol Use History: None Reported Past Drug Use History: None Reported - Past Family History Father Family Medical History: Cancer Mother Family Medical History: Diabetes Mellitus, Myocardial Infarction (SD) General Exam - General Exam Comments Initial Comments: GENERAL: Patient is well-developed and well-nourished. Patient is nontoxic and well- hydrated and is in mild distress. ENT: Neck is soft and supple. No significant lymphadenopathy is noted. Oropharynx is clear. Moist mucous membranes. Neck has full range of motion without eliciting any pain. EYES: The sclera were anicteric and conjunctiva were pink and moist. Extraocular movements were intact and pupils were equal round and reactive to light. Eyelids were unremarkable. PULMONARY: Unlabored respirations. Good breath sounds bilaterally. No audible rales rhonchi or wheezing was noted. CARDIOVASCULAR: There is a regular rate and rhythm without any murmurs gallops or rubs. ABDOMEN: Soft and nontender with normal bowel sounds. Patient is morbidly obese SKIN: Skin is clear with no lesions or rashes and otherwise unremarkable. NEUROLOGIC: Patient is alert and oriented x3. Cranial nerves II through XII are grossly intact. Motor and sensory are also intact. Normal speech, volume and content. Symmetrical smile. MUSCULOSKELETAL: Normal extremities with adequate strength and full range of motion. No lower extremity swelling or edema. No calf tenderness. LYMPHATICS: No significant lymphadenopathy is noted PSYCHIATRIC: Normal psychiatric evaluation. Course Vital Signs 01/22/18 01/22/18 10:28 11:10 Temperature 97.2 F L Pulse Rate 96 74 Respiratory 18 20 Rate Blood Pressure 166/109 147/64 O2 Sat by Pulse 99 99 Oximetry Medical Decision Making - Medical Decision Making EKG shows sinus rhythm at 84 bpm TN interval is 186 QRS 74 Q-T intervals 384 QTC is 453. Patient's EKG shows no ST segment elevation or depression. Patient had an occasional PAC. Patient's chest x-ray showed no acute abnormality. Patient's troponin was mildly elevated at 0.28 so I started the patient on heparin. I called Dr. Fang and told him about the patient's labs and symptoms. I spoke to Dr. Redd Rainey who is covering for Dr. Osborn . wrote admitting orders I continued Nitropaste heparin and aspirin on the floor. I consult to cardiology. - Lab Data Result diagrams: 01/22/18 10:36 01/22/18 10:36 Lab Results 01/22/18 01/22/18 01/22/18 Range/Units 10:36 10:36 10:36 WBC 6.8 (3.8-10.6) k/uL RBC 3.79 L (3.80-5.40) m/uL Hgb 11.5 (11.4-16.0) gm/dL Hct 35.8 (34.0-46.0) % MCV 94.4 (80.0-100.0) fL MCH 30.5 (25.0-35.0) pg MCHC 32.3 (31.0-37.0) g/dL RDW 12.7 (11.5-15.5) % Plt Count 255 (150-450) k/uL Neutrophils % 71 % Lymphocytes % 20 % Monocytes % 4 % Eosinophils % 3 % Basophils % 0 % Neutrophils # 4.8 (1.3-7.7) k/uL Lymphocytes # 1.4 (1.0-4.8) k/uL Monocytes # 0.3 (0-1.0) k/uL Eosinophils # 0.2 (0-0.7) k/uL Basophils # 0.0 (0-0.2) k/uL PT (9.0-12.0) sec INR (<1.2) APTT (22.0-30.0) sec Sodium 140 (137-145) mmol/L Potassium 4.2 (3.5-5.1) mmol/L Chloride 104 (98-107) mmol/L Carbon Dioxide 22 (22-30) mmol/L Anion Gap 14 mmol/L BUN 17 (7-17) mg/dL Creatinine 0.86 (0.52-1.04) mg/dL Est GFR (CKD-EPI)AfAm 82 (>60 ml/min/1.73 sqM) Est GFR (CKD-EPI)NonAf 71 (>60 ml/min/1.73 sqM) Glucose 241 H (74-99) mg/dL Calcium 9.3 (8.4-10.2) mg/dL Magnesium 1.6 (1.6-2.3) mg/dL Total Bilirubin 0.5 (0.2-1.3) mg/dL AST 34 (14-36) U/L ALT 30 (9-52) U/L Alkaline Phosphatase 112 (38-126) U/L Total Creatine Kinase 150 H (30-135) U/L CK-MB (CK-2) 5.9 H* (0.0-2.4) ng/mL CK-MB (CK-2) Rel Index 3.9 Troponin I 0.281 H* (0.000-0.034) ng/mL Total Protein 7.2 (6.3-8.2) g/dL Albumin 3.7 (3.5-5.0) g/dL 01/22/18 Range/Units 10:36 WBC (3.8-10.6) k/uL RBC (3.80-5.40) m/uL Hgb (11.4-16.0) gm/dL Hct (34.0-46.0) % MCV (80.0-100.0) fL MCH (25.0-35.0) pg MCHC (31.0-37.0) g/dL RDW (11.5-15.5) % Plt Count (150-450) k/uL Neutrophils % % Lymphocytes % % Monocytes % % Eosinophils % % Basophils % % Neutrophils # (1.3-7.7) k/uL Lymphocytes # (1.0-4.8) k/uL Monocytes # (0-1.0) k/uL Eosinophils # (0-0.7) k/uL Basophils # (0-0.2) k/uL PT 9.7 (9.0-12.0) sec INR 1.0 (<1.2) APTT 22.9 (22.0-30.0) sec Sodium (137-145) mmol/L Potassium (3.5-5.1) mmol/L Chloride (98-107) mmol/L Carbon Dioxide (22-30) mmol/L Anion Gap mmol/L BUN (7-17) mg/dL Creatinine (0.52-1.04) mg/dL Est GFR (CKD-EPI)AfAm (>60 ml/min/1.73 sqM) Est GFR (CKD-EPI)NonAf (>60 ml/min/1.73 sqM) Glucose (74-99) mg/dL Calcium (8.4-10.2) mg/dL Magnesium (1.6-2.3) mg/dL Total Bilirubin (0.2-1.3) mg/dL AST (14-36) U/L ALT (9-52) U/L Alkaline Phosphatase (38-126) U/L Total Creatine Kinase (30-135) U/L CK-MB (CK-2) (0.0-2.4) ng/mL CK-MB (CK-2) Rel Index Troponin I (0.000-0.034) ng/mL Total Protein (6.3-8.2) g/dL Albumin (3.5-5.0) g/dL Critical Care Time Critical Care Time: Yes Total Critical Care Time: 35 Disposition Clinical Impression: Non-STEMI (non-ST elevated myocardial infarction) Disposition: ADMITTED IP TO THIS HOSP Referrals: Tim Osborn MD [Primary Care Provider] - 1-2 days Time of Disposition: 11:39
[2018-01-22 11:00] LABS: Basophils % (A) 0 %; Eosinophils # (A) 0.2 k/uL (0-0.7); Eosinophils % (A) 3 %; HCT 35.8 % (34.0-46.0); HGB 11.5 gm/dL (11.4-16.0); Lymphocytes # (A) 1.4 k/uL (1.0-4.8); Lymphocytes % (A) 20 %; MCH 30.5 pg (25.0-35.0); MCHC 32.3 g/dL (31.0-37.0); MCV 94.4 fL (80.0-100.0); Mean Platelet Volume 7.1; Monocytes # (A) 0.3 k/uL (0-1.0); Monocytes % (A) 4 %; Neutrophils # (A) 4.8 k/uL (1.3-7.7); Neutrophils % (A) 71 %; Platelet Count 255 k/uL (150-450); RBC 3.79 m/uL (3.80-5.40); RDW 12.7 % (11.5-15.5); WBC 6.8 k/uL (3.8-10.6)
--- NOTE | 2018-01-22 11:02 | XR ---
EXAMINATION TYPE: XR chest 2V DATE OF EXAM: 01/22/2018 HISTORY: Chest Pain. REFERENCE: Previous study dated 10/22/2017. FINDINGS: Lung volumes are mildly prominent. The heart is mildly enlarged. The lungs appear clear. Pl eural spaces are clear. IMPRESSION: 1. COPD. 2. CARDIOMEGALY.
[2018-01-22 11:05] LABS: Albumin 3.7 g/dL (3.5-5.0); Calcium 9.3 mg/dL (8.4-10.2); Magnesium 1.6 mg/dL (1.6-2.3); Potassium 4.2 mmol/L (3.5-5.1); Total Bilirubin 0.5 mg/dL (0.2-1.3); Total Protein 7.2 g/dL (6.3-8.2)
[2018-01-22 11:16] LABS: Partial Thromboplastin Time 22.9 sec (22.0-30.0); Prothrombin Time 9.7 sec (9.0-12.0)
[2018-01-22 11:31] LABS: Creatine Kinase MB 5.9 ng/mL (0.0-2.4); Troponin I 0.281 ng/mL (0.000-0.034)
[2018-01-22] MEDS ORDERED: NITROGLYCERIN SL TABS 0.4 MG TAB SUBLINGUAL PRN ×2 (11:42→18:18)
[2018-01-22] MEDS ORDERED: HEPARIN SODIUM,PORCINE 5,000 UNIT/ML 1 ML VIAL IV ONE ×2 (11:43→21:41)
[2018-01-22] MEDS: HEPARIN SOD,PORK IN 0.45% NACL 25,000 UNIT in 0.45% NACL 1 500ML.BAG IV SCH (12:10)
[2018-01-22 12:57] LABS: Glucose,Whole Blood 248 mg/dL (75-99)
--- NOTE | 2018-01-22 13:37 | CONS ---
CONSULTATION CHIEF COMPLAINT: Jaw pain. Abril is a 67-year-old lady with history of angina, apparently multiple prior cardiac catheterizations without any angioplasty, has chronic diffuse disease, comes in complaining of discomfort involving her jaw and upper arms. The troponin is mildly elevated. She denies chest pain, difficulty in breathing, palpitations, dizziness or syncope. The EKG does not reveal acute ischemic changes, and at the time of my evaluation, she is symptom-free and hemodynamically stable. PAST MEDICAL HISTORY: Significant for coronary artery disease, hypertension, dyslipidemia, diabetes. MEDICATIONS: At home include Singulair, Lopressor, insulin, [place], Flonase, iron, Plavix, Celexa, Lipitor and aspirin. ALLERGIES: The patient is ALLERGIC TO PENICILLIN AND DICLOFENAC. FAMILY HISTORY: Negative for premature coronary artery disease. SOCIAL HISTORY: Negative for smoking, EtOH abuse, or drug abuse. REVIEW OF SYSTEMS: HEENT is unremarkable. CARDIAC: As described above. RESPIRATORY: Negative. GI: Negative. GENITOURINARY: Negative. ALLERGY/IMMUNOLOGY: Negative. SKIN: Negative. MUSCULOSKELETAL: Significant for arthritis. PSYCHOSOCIAL: Negative. ENDOCRINE: Negative. DERM: Negative. CONSTITUTIONAL: Negative. ONCOLOGICAL: Negative. Rest of the system review is not relevant. EXAM: Comfortable at rest. Vital signs are stable. There is no jugular venous distention. Carotid upstroke is normal. There is no bruit. Chest exam reveals good air entry bilaterally. Heart exam reveals first and second heart sounds. No gallop. No murmur. No rub. Abdomen is soft, nontender. Examination of extremities did not reveal edema. Peripheral pulses are felt. LABS: Show a hemoglobin of 11.5. Potassium is 4.2, creatinine is 0.8. Troponin is 0.281. ASSESSMENT: Acute non ST-segment elevation myocardial infarction. PLAN: I will continue the patient on aspirin, heparin, obtain serial troponins, obtain a 2D echo in the morning and review of outpatient records if she has had multiple prior catheterization and did not require angioplasty, will probably continue with medical therapy. Thank you for allowing me to participate in this pleasant lady. MMODL / IJN: [id number] /
[2018-01-22 16:37] LABS: Glucose,Whole Blood 175 mg/dL (75-99)
[2018-01-22 18:08] LABS: Creatine Kinase MB 43.2 ng/mL (0.0-2.4); Troponin I 5.75 ng/mL (0.000-0.034)
[2018-01-22] MEDS ORDERED: HYDROCORTISONE 1% CREAM 30 GM TUBE TOPICAL PRN (18:18)
[2018-01-22] MEDS ORDERED: LORATADINE 10 MG TAB PO PRN (18:18)
[2018-01-22] MEDS ORDERED: POLYETHYLENE GLYCOL 3350 17 GM POWD.PACK PO PRN (18:18)
[2018-01-22] MEDS ORDERED: FLUTICASONE 50MCG/SPRAY NASAL 16GM EA NOSTRIL PRN (18:18)
--- NOTE | 2018-01-22 18:43 | HP ---
HISTORY AND PHYSICAL DATE OF ADMISSION: 01/22/2018. HISTORY OF PRESENT ILLNESS: This is a 67-year-old white female who was brought to the emergency room with complaints of chest pain. The patient is being admitted by me for Dr. Osborn, who is her primary care physician and I am covering Dr. Osborn this weekend. CHIEF COMPLAINT: Chest pain. She started feeling bilateral neck pain which was radiating to the left jaw and this was associated with nausea and vomiting and she also had some shortness of breath. The patient has a history of myocardial infarction in the past and that was in 2013 and she has been following with Dr. Osborn and also with the ui software engineer. In the ER, the EKG did not show any acute changes. The chest x-ray was unremarkable. Her cardiac enzymes showed slight elevation of troponin which was 0.281. CBC showed a WBC count of 6.8, hemoglobin 11.5, platelet count 235,000. Sodium 140, potassium 4.2, BUN 17, creatinine 0.86, glucose 241. The patient was admitted to the hospital for further evaluation and treatment. PAST MEDICAL HISTORY: Reveals that she has longstanding history of coronary artery disease. She had a myocardial infarction in 2013 and also has had a cardiac catheterization in the past and has had stent placement. She also has diabetes mellitus, hypertensive cardiovascular vascular disease. She is seeing senior oracle dba Dr. Mckeon for her diabetic management. She also has a fibromyalgia, hyperlipidemia, major depression, diabetes mellitus, and obesity. Has had a gastric bypass surgery in the past and also has gastroesophageal reflux disease. CURRENT MEDICATIONS: Include the Lipitor 80 mg p.o. daily, Plavix 75 mg p.o. daily. She is also taking vitamin D and [place] 10/325 2 tabs every 4-6 hours p.r.n. pain, Levemir insulin 14 units daily, insulin glycerine 80 units daily, Imdur 80 mg p.o. daily, Lopressor 25 mg p.o. b.i.d., Actos glycerine sublingual p.r.n., aspirin 81 mg daily. Flonase nasal spray p.r.n., Celexa 40 mg p.o. daily, and omeprazole 20 mg p.o. daily. She is also using timolol eye drops. ALLERGIES: She is ALLERGIC TO VOLTAREN, PEANUTS AND PENICILLIN. SOCIAL HISTORY: She does not smoke now and does not drink alcohol. FAMILY HISTORY: Positive for heart disease, diabetes, and hypertension. REVIEW OF SYSTEMS: The patient denies any headache. Appetite has been good. Bowels regular. She has chest pain and neck pain as mentioned before. She has no abdominal pain. She has no polyuria or dysuria. She has no neurological symptoms. PHYSICAL EXAMINATION: Reveals a 67-year-old white female who is obese and she is alert and oriented. Her pain has subsided with nitroglycerin sublingual. There is no jaundice. There is no generalized lymphadenopathy. No petechia or bruises. Temperature 97.2, pulse is 97 per minute, respirations 18 per minute, blood pressure 166/109, O2 saturation 99%. Examination of the ENT negative. NECK: Supple. There is no jugular venous distention. There is no goiter and there is no carotid bruit. Heart is in sinus rhythm. LUNGS: Clear to auscultation and percussion. ABDOMEN: Soft and nontender. There is no mass palpable. Examination of the lower extremities reveal no pitting edema. Neurologic examination does not reveal localizing sign. IMPRESSION: 1. Chest pain, unstable angina. 2. Non ST elevation myocardial infarction with elevated troponin. 3. Coronary artery disease with past medical history of myocardial infarction. 4. Hypertensive cardiovascular disease. 5. Diabetes mellitus. 6. Hyperlipidemia. 7. Fibromyalgia. 8. Morbid obesity. 9. Mental depression. 10.Degenerative arthritis, multiple joints. PLAN: Patient will be admitted to the hospital. Heart will be monitored with telemetry and will get serial EKGs and cardiac enzymes and also would consult Cardiology and she will be placed back on her previous home medications and diabetes will be controlled with NovoLog sliding scale. Prognosis is guarded. The diagnosis, prognosis and therapeutic plans were discussed in detail with the patient and also with her . MMODL / IJN: [id number] /
[2018-01-22] MEDS: NITROGLYCERIN OINT 1 INCH/GM PACKET TOPICAL SCH (20:13)
[2018-01-22] MEDS: ASPIRIN 81 MG PO SCH (20:14)
[2018-01-22] MEDS: MONTELUKAST 10 MG TAB PO SCH (20:18)
[2018-01-22] MEDS: METOPROLOL TARTRATE 25 MG TAB PO SCH (20:18)
[2018-01-22] MEDS: FUROSEMIDE 20 MG TAB PO SCH (20:18)
[2018-01-22] MEDS: LATANOPROST 0.005% OPHTH DROPS 2.5 ML BTL RIGHT EYE SCH (20:18)
[2018-01-22] MEDS: TIMOLOL 0.5% OPHTH DROPS 5 ML BTL BOTH EYES SCH (20:18)
[2018-01-22 20:20] LABS: Glucose,Whole Blood 188 mg/dL (75-99)
[2018-01-22] MEDS: INSULIN NPH 300 UNIT/3 ML VIAL SQ SCH (20:26)
[2018-01-22] MEDS: INSULIN ASPART 100 UNIT/ML 1 ML 10 ML VIAL SQ SCH (20:31)
[2018-01-22] MEDS ORDERED: ATORVASTATIN 80 MG TAB PO SCH (21:00)
[2018-01-22 23:58] LABS: Creatine Kinase MB 39.4 ng/mL (0.0-2.4); Troponin I 9.54 ng/mL (0.000-0.034)
[2018-01-23] MEDS: NITROGLYCERIN OINT 1 INCH/GM PACKET TOPICAL SCH ×4 (00:03→17:36)
[2018-01-23 01:55] LABS: Glucose,Whole Blood 65 mg/dL (75-99)
[2018-01-23 02:38] LABS: Glucose,Whole Blood 101 mg/dL (75-99)
[2018-01-23 03:14] LABS: Cholesterol 138 mg/dL (<200); HDL Cholesterol 56 mg/dL (40-60); LDL Cholesterol,Calculated 67 mg/dL (0-99); Triglycerides 77 mg/dL (<150)
[2018-01-23 05:51] LABS: Glucose,Whole Blood 141 mg/dL (75-99)
[2018-01-23] MEDS: INSULIN ASPART 100 UNIT/ML 1 ML 10 ML VIAL SQ SCH ×4 (06:47→22:37)
[2018-01-23] MEDS: PANTOPRAZOLE 40 MG TABLET PO SCH (06:47)
--- NOTE | 2018-01-23 08:00 | P.PN ---
Progress Note - Text The patient is a 67-year-old female who has underlying history of coronary artery disease presented yesterday with neck pain, jaw pain and upper arms. Her EKGs have not shown any marked ST-T wave changes but laboratory values have revealed elevated troponin values with this morning's value up to 15.4. She is not having any further neck or jaw pain at this time. No shortness of breath. She was nauseated initially but that has improved. Patient does have multiple risk factors with previous history of coronary artery disease and previous catheterizations. Obesity, diabetes, hypertension and hypercholesterolemia. Vital signs reveal temperature of 97 with a pulse of 66 and respirations 16. Blood pressure 131/62 and she is 97% saturated on 2 L. Lungs are clear. Heart tones were regular. No definite murmurs. Abdomen nontender. No unusual edema. She is alert and oriented. Cranial nerves intact. No focal weakness noted. Labs Once again troponins are elevated up to 15. Her CPK was also elevated at 745. With CK-MB at 39.4. LDL cholesterol 67 with a total cholesterol 138. Blood sugar is 141. Initial BUN of 17 with creatinine 0.86 giving her a GFR of 71. Impressions and plans A non-Q-wave myocardial infarction. Patient has history of coronary artery disease and other risk factors as stated above. Patient to have echocardiogram today. We'll await further recommendations from cardiology. She is already on aspirin and Plavix along with high-dose statin with beta kris and nitrates
[2018-01-23 08:09] LABS: Glucose,Whole Blood 152 mg/dL (75-99)
[2018-01-23] MEDS ORDERED: SODIUM CHLORIDE 0.9% 1,000 ML in EMPTY BAG 1 BAG IV ONE (08:30)
[2018-01-23] MEDS ORDERED: ATORVASTATIN 80 MG TAB PO STA ×2 (08:30→14:05)
[2018-01-23] MEDS ORDERED: ASPIRIN 325 MG TAB PO STA ×2 (08:30→14:05)
[2018-01-23] MEDS ORDERED: NITROGLYCERIN SL TABS 0.4 MG TAB SUBLINGUAL PRN (08:30)
[2018-01-23] MEDS ORDERED: ALPRAZolam 0.25 MG TAB PO PRN (08:30)
[2018-01-23] MEDS ORDERED: ASPIRIN 325 MG TAB PO SCH (09:00)
[2018-01-23] MEDS ORDERED: CLOPIDOGREL 75 MG TAB PO SCH (09:00)
[2018-01-23] MEDS ORDERED: ISOSORBIDE MONONITRATE ER 60 MG TAB.ER.24H PO SCH (09:00)
[2018-01-23] MEDS: METOPROLOL TARTRATE 25 MG TAB PO SCH ×2 (09:21→20:18)
[2018-01-23] MEDS: CITALOPRAM HYDROBROMIDE 20 MG TAB PO SCH (09:21)
[2018-01-23] MEDS: HEPARIN SOD,PORK IN 0.45% NACL 25,000 UNIT in 0.45% NACL 1 500ML.BAG IV SCH (09:22)
[2018-01-23] MEDS: TIMOLOL 0.5% OPHTH DROPS 5 ML BTL BOTH EYES SCH ×2 (09:22→22:37)
[2018-01-23] MEDS: INSULIN DETEMIR 100 UNIT/ML 10 ML VIAL SQ SCH (09:23)
[2018-01-23] MEDS: FUROSEMIDE 20 MG TAB PO SCH ×2 (09:23→13:56)
[2018-01-23 11:58] LABS: Glucose,Whole Blood 177 mg/dL (75-99)
[2018-01-23 12:35] LABS: Hemoglobin A1C 7.1 % (4.0-6.0)
[2018-01-23] MEDS ORDERED: HEPARIN SODIUM,PORCINE 5,000 UNIT/ML 1 ML VIAL IV PRN (13:26)
[2018-01-23] MEDS ORDERED: HEPARIN SOD,PORK IN 0.45% NACL 25,000 UNIT in 0.45% NACL 1 500ML.BAG IV SCH (13:30)
[2018-01-23 13:35] LABS: Glucose,Whole Blood 188 mg/dL (75-99)
[2018-01-23] MEDS: FERROUS SULFATE 325 MG TAB PO SCH (13:57)
[2018-01-23] MEDS: HYDROcodone/APAP 10-325MG 1 EACH TAB PO PRN (13:57)
[2018-01-23] MEDS: MULTIVITAMINS, THERA 1 EACH TAB PO SCH (13:57)
--- NOTE | 2018-01-23 14:19 | P.PN ---
Subjective Progress Note Date: 01/23/18 This is a 67-year-old female patient with history of angina, prior cardiac catheterizations without any angioplasties, chronic diffuse disease, hyperlipidemia, hypertension, diabetes, asthma, who presented to the hospital with symptoms of chest discomfort with associated discomfort in her jaw and upper arms. She was also noted to have abnormality in her troponins, suggesting non-Q-wave NH, 0.2, 5.7, 9.5, 15.4.. For this reason she was advised by Dr. Brady to undergo cardiac catheterization by Dr. Juarez. The risks and the benefits were explained to the patient in detail, this will be performed tomorrow morning at 7:30. Blood pressure 120/60 heart rate in the 70s , 99% on room air. Objective - Vital Signs Vital signs: Vital Signs Temp 97.4 F L 01/23/18 09:00 Pulse 70 01/23/18 09:00 Resp 16 01/23/18 11:14 BP 125/60 01/23/18 09:00 Pulse Ox 99 01/23/18 09:00 Intake & Output 01/22/18 01/23/18 01/23/18 18:59 06:59 18:59 Intake Total 740.677 702.629 Balance 740.677 702.629 Weight 126.552 kg 127.2 kg Intake: IV 80 Heparin Sod,Pork in 0.45% 80 NaCl 25,000 unit In 0.45 % NaCl 1 500ml.bag @ 7.9 UNITS/KG/HR 19.99 mls/hr IV .Q24H MI Rx#: [id number] Intake, IV Titration 380.677 622.629 Amount Heparin Sod,Pork in 0.45% 380.677 114.629 NaCl 25,000 unit In 0.45 % NaCl 1 500ml.bag @ 7.9 UNITS/KG/HR 19.99 mls/hr IV .Q24H MI Rx#: [id number] Sodium Chloride 0.9% 1, 508 000 ml In Empty Bag 1 bag @ 1 ML/KG/HR 127.2 mls/ hr IV .Q7H52M ONE Rx#: [id number] Oral 360 Other: Voiding Method Toilet Toilet Toilet # Voids 1 2 - Exam PHYSICAL EXAMINATION: HEENT: [Head is atraumatic, normocephalic. Pupils equal, round. Neck is supple. There is no elevated jugular venous pressure.] HEART EXAMINATION: [Heart S1, S2 normal. No murmur or gallop heard.] CHEST EXAMINATION:[ Lungs are clear to auscultation and precussion. No chest wall tenderness is noted on palpation or with deep breathing.] ABDOMEN: [ Soft, nontender. Bowel sounds are heard. No organomegaly noted]. EXTREMITIES:[ 2+ peripheral pulses with no evidence of peripheral edema and no calf tenderness noted]. NEUROLOGIC [patient is awake, alert and oriented -3.] . - Labs CBC & Chem 7: 01/22/18 10:36 01/22/18 10:36 Labs: Abnormal Lab Results - Last 24 Hours (Table) 01/22/18 01/22/18 01/22/18 Range/Units 16:35 16:54 18:57 APTT 33.5 H (22.0-30.0) sec POC Glucose (mg/dL) 175 H (75-99) mg/dL Hemoglobin A1c (4.0-6.0) % Total Creatine Kinase 659 H (30-135) U/L CK-MB (CK-2) 43.2 H* (0.0-2.4) ng/mL Troponin I 5.750 H* (0.000-0.034) ng/mL 01/22/18 01/22/18 01/23/18 Range/Units 20:19 22:28 01:53 APTT (22.0-30.0) sec POC Glucose (mg/dL) 188 H 65 L (75-99) mg/dL Hemoglobin A1c (4.0-6.0) % Total Creatine Kinase 745 H (30-135) U/L CK-MB (CK-2) 39.4 H* (0.0-2.4) ng/mL Troponin I 9.540 H* (0.000-0.034) ng/mL 01/23/18 01/23/18 01/23/18 Range/Units 02:26 02:33 02:33 APTT 93.9 H (22.0-30.0) sec POC Glucose (mg/dL) 101 H (75-99) mg/dL Hemoglobin A1c 7.1 H (4.0-6.0) % Total Creatine Kinase (30-135) U/L CK-MB (CK-2) (0.0-2.4) ng/mL Troponin I (0.000-0.034) ng/mL 01/23/18 01/23/18 01/23/18 Range/Units 05:48 06:34 08:06 APTT (22.0-30.0) sec POC Glucose (mg/dL) 141 H 152 H (75-99) mg/dL Hemoglobin A1c (4.0-6.0) % Total Creatine Kinase (30-135) U/L CK-MB (CK-2) (0.0-2.4) ng/mL Troponin I 15.400 H* (0.000-0.034) ng/mL 01/23/18 01/23/18 01/23/18 Range/Units 08:45 11:56 13:32 APTT 49.4 H (22.0-30.0) sec POC Glucose (mg/dL) 177 H 188 H (75-99) mg/dL Hemoglobin A1c (4.0-6.0) % Total Creatine Kinase (30-135) U/L CK-MB (CK-2) (0.0-2.4) ng/mL Troponin I (0.000-0.034) ng/mL Assessment and Plan Plan: Assessment and plan #1 non-Q-wave myocardial infarction #2 diabetes #3 hypertension #4 hyperlipidemia #5 asthma Plan Cardiac catheterization tomorrow by Dr. Juarez. The risks and benefits were explained to the patient in detail. Further recommendations will be based on these findings and patient's clinical course. DNP note has been reviewed, I agree with a documented findings and plan of care. Patient was seen and examined.
[2018-01-23 16:51] LABS: Glucose,Whole Blood 243 mg/dL (75-99)
[2018-01-23] MEDS: ASPIRIN 81 MG PO SCH (20:18)
[2018-01-23] MEDS: MONTELUKAST 10 MG TAB PO SCH (20:18)
[2018-01-23] MEDS: INSULIN NPH 300 UNIT/3 ML VIAL SQ SCH (20:19)
[2018-01-23] MEDS: LATANOPROST 0.005% OPHTH DROPS 2.5 ML BTL RIGHT EYE SCH (20:19)
[2018-01-23 20:52] LABS: Glucose,Whole Blood 175 mg/dL (75-99)
[2018-01-24] MEDS: NITROGLYCERIN OINT 1 INCH/GM PACKET TOPICAL SCH ×2 (01:14→06:40)
[2018-01-24 03:21] LABS: Glucose,Whole Blood 79 mg/dL (75-99)
[2018-01-24 05:53] LABS: Glucose,Whole Blood 83 mg/dL (75-99)
[2018-01-24] MEDS ORDERED: ATORVASTATIN 80 MG TAB PO ONE (06:00)
[2018-01-24] MEDS ORDERED: ASPIRIN 325 MG TAB PO ONE (06:00)
[2018-01-24 06:22] LABS: Basophils % (A) 0 %; Eosinophils # (A) 0.3 k/uL (0-0.7); Eosinophils % (A) 4 %; HCT 33.7 % (34.0-46.0); HGB 11.6 gm/dL (11.4-16.0); Lymphocytes # (A) 1.8 k/uL (1.0-4.8); Lymphocytes % (A) 24 %; MCH 32.4 pg (25.0-35.0); MCHC 34.4 g/dL (31.0-37.0); MCV 94.2 fL (80.0-100.0); Mean Platelet Volume 6.8; Monocytes # (A) 0.3 k/uL (0-1.0); Monocytes % (A) 4 %; Neutrophils # (A) 4.9 k/uL (1.3-7.7); Neutrophils % (A) 67 %; Platelet Count 266 k/uL (150-450); RBC 3.57 m/uL (3.80-5.40); RDW 12.9 % (11.5-15.5); WBC 7.4 k/uL (3.8-10.6)
[2018-01-24] MEDS: INSULIN ASPART 100 UNIT/ML 1 ML 10 ML VIAL SQ SCH ×4 (06:27→21:51)
[2018-01-24] MEDS: PANTOPRAZOLE 40 MG TABLET PO SCH (06:40)
[2018-01-24 07:02] LABS: Creatine Kinase MB 6.7 ng/mL (0.0-2.4)
[2018-01-24] MEDS ORDERED: LIDOCAINE 2% INJ 20 MG/ML (20 ML MDV) ONE ×2 (07:14→08:14)
[2018-01-24] MEDS ORDERED: fentaNYL (PF) 50 MCG/ML 2 ML AMP ONE (07:14)
[2018-01-24] MEDS ORDERED: VERAPAMIL 2.5 MG/ML 2 ML AMP ONE (07:32)
[2018-01-24] MEDS ORDERED: fentaNYL (PF) 50 MCG/ML 2 ML AMP IV ONE (07:41)
[2018-01-24] MEDS: LIDOCAINE 2% INJ 20 MG/ML SQ ONE ×2 (07:50→08:01)
[2018-01-24] MEDS ORDERED: IV FLUID CONTINUATION 300 ML IV ONE (08:02)
[2018-01-24] MEDS ORDERED: NITROGLYCERIN SL TABS 0.4 MG TAB SUBLINGUAL ONE ×2 (08:09)
[2018-01-24] MEDS ORDERED: IOPAMIDOL-370 125ML BTL INJ ONE (08:09)
--- NOTE | 2018-01-24 08:10 | P.PN ---
Progress Note - Text The patient is a 67-year-old female with previous history of coronary artery disease presented 2 days ago with neck and jaw and upper arm pain and found to have elevated troponin up to 15.4 consistent with a non-Q wave myocardial infarction. Overall patient's chest pain at rest seem to resolve. Last recorded vital signs reveal temperature 98.1 with a pulse of 69 and respiration 20. Blood pressure 126/60 and she was 95% saturated on room air. Laboratory values revealed a white count of 7.4 and a hemoglobin 11.6 and a platelet count 266 this morning. Blood sugar was 83. Impressions and plans Patient with a non-Q-wave myocardial infarction. Has been seen by cardiology and plans are for heart catheterization this morning and further recommendations pending the results.
[2018-01-24] MEDS ORDERED: MIDAZOLAM 2 MG/2 ML VIAL ONE (08:18)
[2018-01-24] MEDS ORDERED: MIDAZOLAM 2 MG/2 ML VIAL IV ONE (08:19)
[2018-01-24] MEDS ORDERED: RX INFO: IV CONTRAST WAS GIVEN 1 EACH MISC MISCELLANE PRN (08:45)
[2018-01-24] MEDS ORDERED: SODIUM CHLORIDE 0.9% 1,000 ML IV SCH (08:45)
[2018-01-24] MEDS ORDERED: HEPARIN SODIUM,PORCINE 5,000 UNIT/ML 1 ML VIAL IV PRN (08:48)
[2018-01-24] MEDS: FERROUS SULFATE 325 MG TAB PO SCH (09:17)
[2018-01-24] MEDS: CITALOPRAM HYDROBROMIDE 20 MG TAB PO SCH (09:17)
[2018-01-24] MEDS: FUROSEMIDE 20 MG TAB PO SCH ×2 (09:17→15:16)
[2018-01-24] MEDS: METOPROLOL TARTRATE 25 MG TAB PO SCH ×2 (09:17→20:15)
[2018-01-24] MEDS: MULTIVITAMINS, THERA 1 EACH TAB PO SCH (09:18)
[2018-01-24] MEDS: ALPRAZolam 0.5 MG TAB PO PRN ×2 (09:21→15:14)
[2018-01-24] MEDS: HYDROcodone/APAP 10-325MG 1 EACH TAB PO PRN ×2 (09:21→15:14)
[2018-01-24] MEDS: TIMOLOL 0.5% OPHTH DROPS 5 ML BTL BOTH EYES SCH ×2 (09:21→20:19)
[2018-01-24] MEDS: INSULIN DETEMIR 100 UNIT/ML 10 ML VIAL SQ SCH (09:31)
--- NOTE | 2018-01-24 09:34 | CC ---
CARDIAC CATHETERIZATION REPORT Mrs. Akers is a 67-year-old female with known history of hypertension, hyperlipidemia, diabetes mellitus, who presented with symptoms of chest discomfort and elevation of her troponin. In view of that, recommendation made regarding cardiac catheterization. The procedures, risks and complications were discussed with the patient who is in full understanding and agreement. PROCEDURE: Patient was brought to the [facility] [employer] in fasting semi-sedated state after receiving fentanyl and Benadryl and achieving moderate conscious sedated state. Attempts to cannulate the right radial artery were unsuccessful. At that time, using Xylocaine anesthesia and Seldinger technique, a 6-Dutch sheath was introduced in the right femoral artery. Selective right and left coronary angiography performed with 6 Dutch 4 bend right and left Jose Ramon catheter multiple views of the coronary artery including hemiaxial views were obtained. Following that, a 5-Dutch tight pigtail catheter was introduced into the left ventricle and a 30 degree LATHAM view of the left ventricle was obtained. Following that, catheter and sheaths were removed, hemostasis was obtained with a combination of Pro Close there was suboptimal in obtaining good hemostasis and compression of the right groin. There was no immediate complication. FINDINGS: 1. FLUOROSCOPY: There was severe calcification involving the coronary arteries. 2. LEFT MAIN: This is a large-sized vessel, bifurcating into the left circumflex, left anterior descending artery. Left main coronary artery has a 60% plaque distally. 3. LEFT ANTERIOR DESCENDING ARTERY: This is a large-sized vessel, reaching toward the apex with a wraparound apex segment. The left anterior descending artery proximally has an eccentric lesion of 80%. The first diagonal branch is subtotally occluded. The LAD in the mid segment has diffuse disease and the distal apical segment has an area of 80% stenosis. 4. LEFT CIRCUMFLEX: This is a large nondominant vessel giving rise to four obtuse marginal branch. The 2nd obtuse marginal branch is subtotally occluded with minimal antegrade flow. 5. RIGHT CORONARY ARTERY: This is a dominant vessel bifurcating distally into PDA and posterolateral segment and branches. The right coronary artery in mid segment has a hazy area with evidence of stenosis up to 99%. The rest of the vessel has mild intimal disease without any evidence of high-grade stenosis. 6. LEFT VENTRICULOGRAM: Left ventriculogram is performed in 30-degree LATHAM view and revealed normal left ventricular size systolic function. Ejection fraction is 60%. There was no significant mitral regurgitation. HEMODYNAMICS: There was no gradient across the aortic valve. The end-diastolic pressure was 28 mmHg. CONCLUSION: 1. Critical stenosis involving the distal left main with severe triple-vessel coronary disease. 2. Normal left ventricular size and systolic function. RECOMMENDATION: In view of finding anatomy, I have recommended proceeding with evaluation for coronary artery bypass grafting. The rationale behind the recommendation as well as the findings were discussed with the patient and her family who are in full understanding and agreement. Duration of procedure 43 minutes. MMODL / IJN: [id number] /
[2018-01-24] MEDS: ISOSORBIDE MONONITRATE ER 60 MG TAB.ER.24H PO SCH (09:37)
--- NOTE | 2018-01-24 09:37 | LTR ---
DATE OF SERVICE: 01/24/2017 RE: Abril Akers. Dear Dr. Osborn; I had the pleasure to perform cardiac catheterization on Mrs Akers at [facility] on January 24, 2018 and a full copy of the procedure note will be forwarded to you. In brief, she was found to have significant left main disease with severe triple-vessel coronary artery disease and based on those findings, I have recommended proceeding with evaluation for coronary artery bypass grafting. I will keep you updated on her progress and thank you again for allowing me to participate in this patient's care. Please feel free to call for any questions. Sincerely yours, MD JULIANNE LesterL / ARGELIAN: [phone] /
[2018-01-24 11:25] LABS: Glucose,Whole Blood 117 mg/dL (75-99)
[2018-01-24] MEDS: HEPARIN SOD,PORK IN 0.45% NACL 25,000 UNIT in 0.45% NACL 1 500ML.BAG IV SCH (12:38)
[2018-01-24] MEDS ORDERED: MD COMMUNICATION TO PHARMACY 1 EACH MISC PO ONE (15:02)
[2018-01-24 16:31] LABS: Glucose,Whole Blood 152 mg/dL (75-99)
[2018-01-24 17:02] LABS: Magnesium 1.9 mg/dL (1.6-2.3)
[2018-01-24 17:07] LABS: Prothrombin Time 10.2 sec (9.0-12.0)
--- NOTE | 2018-01-24 17:11 | P.GSCN ---
<Rivas Huang - Last Filed: 01/24/18 17:08> History of Present Illness Consult date: 01/24/18 Reason for Consult: Critical stenosis involving the distal left main with severe triple-vessel coronary artery disease, evaluation for myocardial revascularization. Requesting physician: Hilaria Juarez History of present illness: This is 67-year-old female patient who is followed by Dr. Tim Osborn on an outpatient basis. She has a past medical history significant for coronary artery disease with previous myocardial infarction in 2013, hypertension, hyperlipidemia, fibromyalgia, depression, history of a 50-79% stenosis to her left internal carotid artery, history of nicotine dependence quit over 30 years ago, obesity with history of lap band surgery, history of renal failure with 2 treatments of hemodialysis, GERD and diabetes mellitus type 2. The patient presented to the emergency department here at [facility] with complaints of chest tightness and pain radiating to her jaw. She also reports that she was feeling nauseated and vomited 1. Subsequently EMS was called and she was transported to the emergency department here at [facility]. She denies any complaints of fever, dizziness, lightheadedness, chills, or shortness of breath. A 12-lead EKG was completed which did not show any acute changes, her lab results showed a WBC count of 6.8, Hgb 11.5, BUN 17, creatinine 0.86, admission glucose 241, an elevated troponin of 0.281 and was as high as 15.4. Due to the patient's history of coronary artery disease, presenting symptoms are cardiac catheterization was completed and demonstrated a 60% stenosis to her left main coronary artery, a 95% stenosis to her right coronary artery, a totally occluded circumflex coronary artery, 90% stenosis to her proximal left anterior descending coronary artery, and a 60% stenosis to her mid left anterior descending coronary artery. Also during heart catheterization a left ventriculogram was completed which showed her to have an ejection fraction of 60%. The cardiac catheterization results were reviewed with the patient by Dr. Juarez and a consult was placed for Dr. Robert Worley from cardiothoracic surgery to evaluate the patient for possible myocardial revascularization. Review of Systems A 14 point review of system was completed and was negative except as mentioned in HPI. Past Medical History Past Medical History: Coronary Artery Disease (CAD), Chest Pain / Angina, Diabetes Mellitus, Fibromyalgia, GERD/Reflux, Hyperlipidemia, Hypertension, Myocardial Infarction (DC), Osteoarthritis (OA) Additional Past Medical History / Comment(s): carpal tunnel, retinopathy, glaucoma, neuropathy, eye ailments, history of renal failure with to hemodialysis treatments. Last Myocardial Infarction Date:: 08/2014 History of Any Multi-Drug Resistant Organisms: None Reported Past Surgical History: Cholecystectomy, Heart Catheterization, Tubal Ligation Additional Past Surgical History / Comment(s): RIGHT AND LEFT KNEE ARTHROSCOPIC , RIGHT EYE SURGERY, bilateral cataract surgery, sciatica, lap band surgery. Past Anesthesia/Blood Transfusion Reactions: No Reported Reaction Past Psychological History: Depression Additional Psychological History / Comment(s): . Smoking Status: Former smoker (STARTED SMOKING AT AGE 16 QUIT AT AGE 25 SMOKED LESS THAN A WEEK) Past Alcohol Use History: None Reported, Rare Past Drug Use History: None Reported - Past Family History Father Family Medical History: Cancer Mother Family Medical History: Diabetes Mellitus, Myocardial Infarction (DC) (At age 58.) Medications and Allergies Home Medications Medication Instructions Recorded Confirmed Type Atorvastatin [Lipitor] 80 mg PO HS 09/11/14 01/22/18 History Clopidogrel [Plavix] 75 mg PO DAILY 09/11/14 01/22/18 History Ergocalciferol [Vitamin D2 50,000 unit PO SA 09/11/14 01/22/18 History (DRISDOL)] HYDROcodone/APAP 10-325MG [[place] 2 tab PO Q4H PRN 09/11/14 01/22/18 History 10-325] Insulin Detemir [Levemir] 14 unit SQ DAILY 09/11/14 01/22/18 History Insulin Glulisine [Apidra] 18 unit SQ AC-BRKFST 09/11/14 01/22/18 History Isosorbide Mononitrate [Imdur] 60 mg PO DAILY 09/11/14 01/22/18 History Latanoprost Ophth [Xalatan 0.005%] 1 drop RIGHT EYE HS 09/11/14 01/22/18 History Metoprolol Tartrate [Lopressor] 25 mg PO BID 09/11/14 01/22/18 History Nitroglycerin Sl Tabs [Nitrostat] 0.4 mg SUBLINGUAL Q5M PRN 09/11/14 01/22/18 History Aspirin EC [Ecotrin Low Dose] 81 mg PO HS 05/22/16 01/22/18 History Fexofenadine HCl [Citlaly Allergy] 180 mg PO HS PRN 05/22/16 01/22/18 History Fluticasone Nasal [place] [Flonase 1 spray EA NOSTRIL DAILY PRN 05/22/16 01/22/18 History Nasal [place]] Multivit-Min/Iron/Folic/Lutein 1 tab PO DAILY 05/22/16 01/22/18 History [Centrum Silver Women Tablet] Citalopram Hydrobromide [CeleXA] 40 mg PO DAILY 10/22/17 01/22/18 History Ferrous Sulfate [Iron (65 MG 325 mg PO DAILY 10/22/17 01/22/18 History Elemental)] Furosemide [Lasix] 20 mg PO BID 10/22/17 01/22/18 History Hydrocortisone [Hydrocortisone 1 applic TOPICAL BID PRN 10/22/17 01/22/18 History 0.05%] Insulin Glulisine [Apidra] 14 unit SQ AC-LUNCH 10/22/17 01/22/18 History Insulin Glulisine [Apidra] 16 unit SQ AC-SUPPER 10/22/17 01/22/18 History Insulin Glulisine [Apidra] See Protocol SQ ACHS 10/22/17 01/22/18 History Insulin NPH Human Isophane 21 unit SQ HS 10/22/17 01/22/18 History [humuLIN N] Polyethylene Glycol 3350 [Miralax] 17 gm PO DAILY PRN 10/22/17 01/22/18 History Ciprofloxacin HCl [Cipro] 250 mg PO Q12HR 01/22/18 01/22/18 History Montelukast [Singulair] 10 mg PO HS 01/22/18 01/22/18 History Omeprazole 40 mg PO AC-BRKFST 01/22/18 01/22/18 History Timolol 0.5% Ophth Soln [Timoptic 1 drop BOTH EYES BID 01/22/18 01/22/18 History 0.5% Ophth Soln] Allergies Allergy/AdvReac Type Severity Reaction Status Date / Time diclofenac Allergy Unknown Verified 01/22/18 11:31 peanut Allergy PER Verified 01/22/18 11:31 ALLERGY TEST Penicillins Allergy ITCHING Verified 01/22/18 11:31 AND RED SKIN Surgical - Exam Vital Signs Temp Pulse Resp BP Pulse Ox 97.2 F L 96 18 166/109 99 01/22/18 10:28 01/22/18 10:28 01/22/18 10:28 01/22/18 10:28 01/22/18 10:28 - General well developed, well nourished, no distress, no pain, obese - Eyes PERRL - ENT normal pinna, normal nares, normal mucosa, no hearing loss, no congestion - Neck No lymphadenopathy, no thyromegaly. no masses, no bruits, trachea midline, no venous distension - Respiratory Lung sounds are essentially clear throughout. Respirations are symmetrical and nonlabored. Oxygen saturation are 97% on room air. - Cardiovascular Regular rhythm and rate. S1 and S2 present, negative for S3, gallop or murmur. Remote telemetry showing sinus bradycardia heart rate 55. - Abdomen Abdomen is soft, nontender and nondistended. Active bowel sounds all 4 abdominal quadrants. Obese. No guarding or rigidity. No organomegaly. Lap band port to her left upper quadrant abdomen. - Integumentary no rash, no growths, no abnormal pigmentation - Neurologic normal coordination, normal sensation - Psychiatric oriented to time, oriented to person, oriented to place, speech is normal, memory intact Results - Labs 01/24/18 06:06 01/22/18 10:36 Abnormal Lab Results - Last 24 Hours (Table) 01/23/18 01/23/18 01/23/18 Range/Units 16:26 20:32 20:51 RBC (3.80-5.40) m/uL Hct (34.0-46.0) % APTT 34.7 H (22.0-30.0) sec POC Glucose (mg/dL) 243 H 175 H (75-99) mg/dL Total Creatine Kinase (30-135) U/L CK-MB (CK-2) (0.0-2.4) ng/mL 01/24/18 01/24/18 01/24/18 Range/Units 04:06 06:06 06:06 RBC 3.57 L (3.80-5.40) m/uL Hct 33.7 L (34.0-46.0) % APTT 52.8 H (22.0-30.0) sec POC Glucose (mg/dL) (75-99) mg/dL Total Creatine Kinase 337 H (30-135) U/L CK-MB (CK-2) 6.7 H* (0.0-2.4) ng/mL 01/24/18 01/24/18 Range/Units 11:21 16:21 RBC (3.80-5.40) m/uL Hct (34.0-46.0) % APTT (22.0-30.0) sec POC Glucose (mg/dL) 117 H 152 H (75-99) mg/dL Total Creatine Kinase (30-135) U/L CK-MB (CK-2) (0.0-2.4) ng/mL - Imaging Comments: [employer] results reviewed. Carotid duplex study results from March 2017 reviewed. Chest x-ray: report reviewed, image reviewed Assessment and Plan (1) Hypertension Current Visit: Yes Status: Acute Code(s): I10 - ESSENTIAL (PRIMARY) HYPERTENSION SNOMED Code(s): 26641682 (2) Hyperlipidemia Current Visit: Yes Status: Acute Code(s): E78.5 - HYPERLIPIDEMIA, UNSPECIFIED SNOMED Code(s): 19390219 (3) History of coronary artery disease Current Visit: Yes Status: Acute Code(s): Z86.79 - PERSONAL HISTORY OF OTHER DISEASES OF THE CIRCULATORY SYSTEM SNOMED Code(s): 681331317 (4) Morbid obesity with BMI of 40.0-44.9, adult Current Visit: Yes Status: Acute Code(s): E66.01 - MORBID (SEVERE) OBESITY DUE TO EXCESS CALORIES; Z68.41 - BODY MASS INDEX (BMI) 40.0-44.9, ADULT SNOMED Code(s): 260436104 (5) Elevated troponin Current Visit: Yes Status: Acute Code(s): R74.8 - ABNORMAL LEVELS OF OTHER SERUM ENZYMES SNOMED Code(s): 417224226 (6) Non-STEMI (non-ST elevated myocardial infarction) Current Visit: Yes Status: Acute Code(s): I21.4 - NON-ST ELEVATION (NSTEMI) MYOCARDIAL INFARCTION SNOMED Code(s): 576221478 (7) Diabetes mellitus Current Visit: No Status: Acute Code(s): E11.9 - TYPE 2 DIABETES MELLITUS WITHOUT COMPLICATIONS SNOMED Code(s): 97314222 Plan: The patient was seen and examined. Her chart and diagnostics were reviewed. Her case will be discussed with Dr. Worley. Preoperative testing has been initiated, we will obtain bedside FEV1, vein mapping, carotid duplex study and lab work. Preoperative teaching initiated. Continue aspirin, statin and beta kris to maximize his medical therapy leading up to surgery. The patient did receive Plavix yesterday morning, her Plavix will need to be held preferably for 5 days prior to surgery. Continue heparin drip per cardiology management. Thank you Dr. Juarez for this consult and we look forward to working with you in the care of your patient. Time with Patient: Greater than 30 <Robert Worley - Last Filed: 01/25/18 12:46> Surgical - Exam Vital Signs Temp Pulse Resp BP Pulse Ox 97.2 F L 96 18 166/109 99 01/22/18 10:28 01/22/18 10:28 01/22/18 10:28 01/22/18 10:28 01/22/18 10:28 Results - Labs 01/25/18 06:11 01/25/18 06:11 Abnormal Lab Results - Last 24 Hours (Table) 01/24/18 01/24/18 01/24/18 Range/Units 16:21 20:53 21:45 RBC (3.80-5.40) m/uL Hgb (11.4-16.0) gm/dL Hct (34.0-46.0) % APTT 32.3 H (22.0-30.0) sec Chloride (98-107) mmol/L Glucose (74-99) mg/dL POC Glucose (mg/dL) 152 H 167 H (75-99) mg/dL AST (14-36) U/L Total Protein (6.3-8.2) g/dL Albumin (3.5-5.0) g/dL 01/25/18 01/25/18 01/25/18 Range/Units 06:09 06:11 06:11 RBC 3.19 L (3.80-5.40) m/uL Hgb 10.3 L (11.4-16.0) gm/dL Hct 30.4 L (34.0-46.0) % APTT (22.0-30.0) sec Chloride 109 H (98-107) mmol/L Glucose 108 H (74-99) mg/dL POC Glucose (mg/dL) 114 H (75-99) mg/dL AST 48 H (14-36) U/L Total Protein 5.7 L (6.3-8.2) g/dL Albumin 2.8 L (3.5-5.0) g/dL 01/25/18 01/25/18 Range/Units 06:11 11:14 RBC (3.80-5.40) m/uL Hgb (11.4-16.0) gm/dL Hct (34.0-46.0) % APTT 47.7 H (22.0-30.0) sec Chloride (98-107) mmol/L Glucose (74-99) mg/dL POC Glucose (mg/dL) 208 H (75-99) mg/dL AST (14-36) U/L Total Protein (6.3-8.2) g/dL Albumin (3.5-5.0) g/dL Diabetes panel 01/25/18 Range/Units 06:11 Sodium 143 (137-145) mmol/L Potassium 3.9 (3.5-5.1) mmol/L Chloride 109 H (98-107) mmol/L Carbon Dioxide 24 (22-30) mmol/L BUN 15 (7-17) mg/dL Creatinine 0.91 (0.52-1.04) mg/dL Glucose 108 H (74-99) mg/dL Calcium 8.5 (8.4-10.2) mg/dL AST 48 H (14-36) U/L ALT 28 (9-52) U/L Alkaline Phosphatase 66 (38-126) U/L Total Protein 5.7 L (6.3-8.2) g/dL Albumin 2.8 L (3.5-5.0) g/dL Thyroid panel 01/24/18 Range/Units 16:41 TSH 2.590 (0.465-4.680) mIU/L Calcium panel 01/25/18 Range/Units 06:11 Calcium 8.5 (8.4-10.2) mg/dL Albumin 2.8 L (3.5-5.0) g/dL Pituitary panel 03/27/18 03/28/18 Range/Units 16:41 06:11 Sodium 143 (137-145) mmol/L Potassium 3.9 (3.5-5.1) mmol/L Chloride 109 H (98-107) mmol/L Carbon Dioxide 24 (22-30) mmol/L BUN 15 (7-17) mg/dL Creatinine 0.91 (0.52-1.04) mg/dL Glucose 108 H (74-99) mg/dL Calcium 8.5 (8.4-10.2) mg/dL TSH 2.590 (0.465-4.680) mIU/L Adrenal panel 01/25/18 Range/Units 06:11 Sodium 143 (137-145) mmol/L Potassium 3.9 (3.5-5.1) mmol/L Chloride 109 H (98-107) mmol/L Carbon Dioxide 24 (22-30) mmol/L BUN 15 (7-17) mg/dL Creatinine 0.91 (0.52-1.04) mg/dL Glucose 108 H (74-99) mg/dL Calcium 8.5 (8.4-10.2) mg/dL Total Bilirubin 0.7 (0.2-1.3) mg/dL AST 48 H (14-36) U/L ALT 28 (9-52) U/L Alkaline Phosphatase 66 (38-126) U/L Total Protein 5.7 L (6.3-8.2) g/dL Albumin 2.8 L (3.5-5.0) g/dL Assessment and Plan Plan: The patient was seen and examined. The history and physical findings were verified. I agree with the above assessment and plan. The patient is a 67-year -old female who developed neck and chest pain several days ago which prompted admission to the hospital. Her troponin was noted to be 15. A cardiac catheterization was performed which revealed multivessel coronary artery disease. Of note the patient has been on chronic Plavix and received her last dose yesterday. A coronary artery bypass was recommended. This, benefits, and alternatives to this procedure were discussed with the patient. All of her questions were answered. She is currently pain free on intravenous heparin. We will obtain the standard preoperative workup with plans for surgery on this admission. Thank you for allowing me to participate in the care of this patient.
--- NOTE | 2018-01-24 17:43 | US ---
EXAMINATION TYPE: US carotid duplex BILAT DATE OF EXAM: 01/24/2018 COMPARISON: NONE CLINICAL HISTORY: Preoperative cardiac surgery. EXAM MEASUREMENTS: RIGHT: Peak Systolic Velocity (PSV) cm/sec ----- Right CCA: 103.1 ----- Right ICA: 116.2 ----- Right ECA: 194.9 ICA/CCA ratio: 1.1 RIGHT: End Diastole cm/sec ----- Right CCA: 15.9 ----- Right ICA: 21.7 ----- Right ECA: 0.0 LEFT: Peak Systolic Velocity (PSV) cm/sec ----- Left CCA: 104.8 ----- Left ICA: 231.1 ----- Left ECA: 287.4 ICA/CCA ratio: 2.2 LEFT: End Diastole cm/sec ----- Left CCA: 12.8 ----- Left ICA: 24.8 ----- Left ECA: 12.6 VERTEBRALS (direction of flow): Right Vertebral: Antegrade Left Vertebral: Antegrade Rhythm: Normal Elevated right ECA. Elevated left ICA & ECA, Plaque at left bulb causing stenosis. IMPRESSION: There is antegrade flow in the vertebral arteries. The images and measurements suggest 7 0% stenosis in the right external carotid artery and more than 70% stenosis in the left internal sarah tid artery and left external carotid artery. Criteria for Assigning % of Stenosis / Diameter reduction (Estimation based on the indirect measurements of the internal carotid artery velocities (ICA PSV). 1. Normal (no stenosis)=ICA PSV < 125 cm/s: ratio < 2.0: ICA EDV<40 cm/s. 2. Less than 50% stenosis=ICA PSV < 125 cm/s: ratio < 2.0: ICA EDV<40 cm/s. 3. 50 to 69% stenosis=ICA PSV of 125 to 230 cm/s: ration 2.0 ? 4.0: ICA EDV 40-100 cm/s. 4. Greater than 70% stenosis to near occlusion= ICA PSV > 230 cm/s: ratio > 4.0: ICA EDV > 100 cm/s. 5. Near occlusion= ICA PSV velocities may be low or undetectable: variable ratio and ICA EDV. 6. Total occlusion=unable to detect flow.
[2018-01-24] MEDS: MONTELUKAST 10 MG TAB PO SCH (20:15)
[2018-01-24] MEDS: MUPIROCIN 2% OINT 22 GM TUBE NASAL SCH (20:15)
[2018-01-24] MEDS: ASPIRIN 81 MG PO SCH (20:15)
[2018-01-24] MEDS: ATORVASTATIN 80 MG TAB PO SCH (20:17)
[2018-01-24] MEDS: INSULIN NPH 300 UNIT/3 ML VIAL SQ SCH (20:19)
[2018-01-24] MEDS: LATANOPROST 0.005% OPHTH DROPS 2.5 ML BTL RIGHT EYE SCH (20:37)
[2018-01-24 20:54] LABS: Glucose,Whole Blood 167 mg/dL (75-99)
[2018-01-25 01:49] LABS: Hepatitis A Antibody IgM Non-Reactive (Non-Reactive); Hepatitis B Core IgM Non-Reactive (Non-Reactive)
[2018-01-25 06:11] LABS: Glucose,Whole Blood 114 mg/dL (75-99)
[2018-01-25] MEDS: INSULIN ASPART 100 UNIT/ML 1 ML 10 ML VIAL SQ SCH ×4 (06:25→21:16)
[2018-01-25] MEDS: PANTOPRAZOLE 40 MG TABLET PO SCH (06:27)
[2018-01-25 06:41] LABS: Basophils % (A) 0 %; Eosinophils # (A) 0.2 k/uL (0-0.7); Eosinophils % (A) 3 %; HCT 30.4 % (34.0-46.0); HGB 10.3 gm/dL (11.4-16.0); Lymphocytes # (A) 1.5 k/uL (1.0-4.8); Lymphocytes % (A) 22 %; MCH 32.2 pg (25.0-35.0); MCHC 33.8 g/dL (31.0-37.0); MCV 95.3 fL (80.0-100.0); Mean Platelet Volume 6.7; Monocytes # (A) 0.3 k/uL (0-1.0); Monocytes % (A) 5 %; Neutrophils # (A) 4.5 k/uL (1.3-7.7); Neutrophils % (A) 68 %; Platelet Count 237 k/uL (150-450); RBC 3.19 m/uL (3.80-5.40); WBC 6.6 k/uL (3.8-10.6)
[2018-01-25 07:29] LABS: Albumin 2.8 g/dL (3.5-5.0); Calcium 8.5 mg/dL (8.4-10.2); Potassium 3.9 mmol/L (3.5-5.1); Total Bilirubin 0.7 mg/dL (0.2-1.3); Total Protein 5.7 g/dL (6.3-8.2)
--- NOTE | 2018-01-25 08:10 | P.PN ---
Progress Note - Text The patient is a 67-year-old female who presented 3 days previous with a rather severe neck and jaw and upper arm discomfort. Elevated troponin levels. Consistent with a non-Q-wave myocardial infarctions. Cardiac catheterization yesterday revealed some left main disease and triple-vessel disease and she is being evaluated by cardiology for possible bypass surgery. This morning she is awake sitting at the side of the bed. She did have some left neck pain yesterday which was mild compared to on admission. Vital signs reveal temperature of 98.2 with a pulse of 66 and respirations 16. Blood pressure 132/60 and she is 98% saturated on room air. Lung and heart examination is clear. Heart regular. No murmurs. Abdomen is nontender. No unusual edema. No focal neurological changes. Laboratory from this morning White count 6.6 with a hemoglobin 10.3 and a platelet count of 237. Sodium is 143 with a potassium 3.9. BUN is 15 with creatinine of 0.91 given her a GFR of 65. Blood sugar this morning is 108. Albumin 2.8 with a total protein 5.7. Impressions and plans Patient remains on IV heparin. Plavix is on hold. She continues on nitrates and beta blockers. We'll await further recommendations from surgery. Discussed with patient at bedside. She appears to understand reasons for further interventions.
--- NOTE | 2018-01-25 08:17 | P.PN ---
<Cynthia Christensen - Last Filed: 01/25/18 08:05> Subjective Progress Note Date: 01/25/18 Principal diagnosis: Severe coronary artery disease including left main stenosis of 60%, NSTEMI. Previous medical history of coronary artery disease with previous myocardial infarction 2013, hypertension, hyperlipidemia, fibromyalgia, depression, left carotid stenosis greater than 70%, previous tobacco dependence with the current FEV1 of 35% predicted, obesity with history of lap band surgery, renal failure with 2 treatments of hemodialysis, GERD, and diabetes mellitus type tube with current hemoglobin A1c of 7.1%. The patient's currently sitting up in bed in no acute distress. Currently denies any pain, states she is slightly short of breath with activity. Questions regarding surgery versus stenting answered to the best of my ability. Objective - Vital Signs Vital signs: Vital Signs Temp 98.2 F 01/25/18 04:00 Pulse 66 01/25/18 04:00 Resp 16 01/25/18 04:00 BP 132/60 01/25/18 04:00 Pulse Ox 98 01/25/18 04:00 Intake & Output 01/24/18 01/25/18 01/25/18 18:59 06:59 18:59 Intake Total 574.017 139 Output Total 1000 Balance -425.983 139 Weight 127.2 kg Intake: IV 100 Intake, IV Titration 114.017 139 Amount Heparin Sod,Pork in 0.45% 114.017 139 NaCl 25,000 unit In 0.45 % NaCl 1 500ml.bag @ 7.75 UNITS/KG/HR 19.99 mls/hr IV .Q24H MI Rx#: [id number] Oral 360 Output: Urine 1000 Other: Voiding Method Toilet Toilet # Voids 1 1 - Constitutional General appearance: Present: cooperative, no acute distress, obese - Respiratory Details: Lungs sounds diminished bilaterally. Respirations even, nonlabored. Currently on room air with oxygen saturations 98%. Able to achieve 3000 mL on her incentive spirometry. - Cardiovascular Details: S1, S2 present. Regular rate and rhythm, sinus rhythm on telemetry. Palpable peripheral pulses bilaterally. Trace bilateral lower extremity edema present. No calf pain or tenderness noted. - Gastrointestinal Gastrointestinal Comment(s): Abdomen soft, nontender, nondistended, obese. Active bowel sounds 4 quadrants. Tolerating diet. - Genitourinary Genitourinary Comment(s): Continues to void. - Integumentary Integumentary Comment(s): Skin is warm and dry with evidence of good perfusion. - Neurologic Neurologic: Present: CNII-XII intact - Musculoskeletal Musculoskeletal Comment(s): Patient does walk with a cane. Musculoskeletal: Present: gait normal, strength equal bilaterally - Psychiatric Psychiatric: Present: A&O x's 3, appropriate affect, intact judgment & insight - Allied health notes Allied health notes reviewed: nursing - Labs CBC & Chem 7: 01/25/18 06:11 01/25/18 06:11 Labs: Abnormal Lab Results - Last 24 Hours (Table) 01/24/18 01/24/18 01/24/18 Range/Units 11:21 16:21 20:53 RBC (3.80-5.40) m/uL Hgb (11.4-16.0) gm/dL Hct (34.0-46.0) % APTT (22.0-30.0) sec Chloride (98-107) mmol/L Glucose (74-99) mg/dL POC Glucose (mg/dL) 117 H 152 H 167 H (75-99) mg/dL AST (14-36) U/L Total Protein (6.3-8.2) g/dL Albumin (3.5-5.0) g/dL 01/24/18 01/25/18 01/25/18 Range/Units 21:45 06:09 06:11 RBC (3.80-5.40) m/uL Hgb (11.4-16.0) gm/dL Hct (34.0-46.0) % APTT 32.3 H (22.0-30.0) sec Chloride 109 H (98-107) mmol/L Glucose 108 H (74-99) mg/dL POC Glucose (mg/dL) 114 H (75-99) mg/dL AST 48 H (14-36) U/L Total Protein 5.7 L (6.3-8.2) g/dL Albumin 2.8 L (3.5-5.0) g/dL 01/25/18 01/25/18 Range/Units 06:11 06:11 RBC 3.19 L (3.80-5.40) m/uL Hgb 10.3 L (11.4-16.0) gm/dL Hct 30.4 L (34.0-46.0) % APTT 47.7 H (22.0-30.0) sec Chloride (98-107) mmol/L Glucose (74-99) mg/dL POC Glucose (mg/dL) (75-99) mg/dL AST (14-36) U/L Total Protein (6.3-8.2) g/dL Albumin (3.5-5.0) g/dL - Imaging and Cardiology Chest x-ray: report reviewed, image reviewed Carotid Dopplers, bilateral lower extremity ultrasound reviewed. Assessment and Plan (1) History of coronary artery disease Current Visit: Yes Status: Chronic Code(s): Z86.79 - PERSONAL HISTORY OF OTHER DISEASES OF THE CIRCULATORY SYSTEM SNOMED Code(s): 082271298 (2) Hyperlipidemia Current Visit: Yes Status: Chronic Code(s): E78.5 - HYPERLIPIDEMIA, UNSPECIFIED SNOMED Code(s): 20813352 (3) Hypertension Current Visit: Yes Status: Chronic Code(s): I10 - ESSENTIAL (PRIMARY) HYPERTENSION SNOMED Code(s): 51383610 (4) Morbid obesity with BMI of 40.0-44.9, adult Current Visit: Yes Status: Chronic Code(s): E66.01 - MORBID (SEVERE) OBESITY DUE TO EXCESS CALORIES; Z68.41 - BODY MASS INDEX (BMI) 40.0-44.9, ADULT SNOMED Code(s): 784420589 (5) Non-STEMI (non-ST elevated myocardial infarction) Current Visit: Yes Status: Acute Code(s): I21.4 - NON-ST ELEVATION (NSTEMI) MYOCARDIAL INFARCTION SNOMED Code(s): 924444542 (6) Diabetes mellitus Current Visit: Yes Status: Chronic Code(s): E11.9 - TYPE 2 DIABETES MELLITUS WITHOUT COMPLICATIONS SNOMED Code(s): 51195406 (7) Left main coronary artery disease Current Visit: Yes Status: Chronic Code(s): I25.10 - ATHSCL HEART DISEASE OF [place] CORONARY ARTERY W/O ANG PCTRS SNOMED Code(s): 934786022 (8) Tobacco dependence in remission Current Visit: No Status: Resolved Code(s): F17.201 - NICOTINE DEPENDENCE, UNSPECIFIED, IN REMISSION SNOMED Code(s): 584617561 (9) Carotid stenosis, left Current Visit: Yes Status: Chronic Code(s): I65.22 - OCCLUSION AND STENOSIS OF LEFT CAROTID ARTERY SNOMED Code(s): 569943692284567 Plan: 1. Continue aspirin, statin, Imdur, beta kris, IV heparin. Continue to hold Plavix. 2. Preoperative teaching reinforced. 3. Will calculate STS risk score once all preoperative testing is completed. 4. Encourage incentive spirometry. Encourage continued smoking cessation. 5. Increase activity, ambulate as tolerated. Cardiac rehab following. 6. Will discuss with patient and cardiology plans for surgical revascularization regarding timing. Ideally, would like patient to be off Plavix for 5-7 days prior to surgery. 7. More recommendations to follow. Time with Patient: Greater than 30 <Robert Worley - Last Filed: 01/25/18 12:48> Objective - Vital Signs Vital signs: Vital Signs Temp 97.3 F L 01/25/18 11:15 Pulse 62 01/25/18 11:15 Resp 18 01/25/18 11:15 BP 123/60 01/25/18 11:15 Pulse Ox 97 01/25/18 11:15 Intake & Output 01/24/18 01/25/18 01/25/18 18:59 06:59 18:59 Intake Total 574.017 139 606.983 Output Total 1000 1000 Balance -425.983 139 -393.017 Weight 127.2 kg Intake: IV 100 Intake, IV Titration 114.017 139 246.983 Amount Heparin Sod,Pork in 0.45% 114.017 139 246.983 NaCl 25,000 unit In 0.45 % NaCl 1 500ml.bag @ 7.75 UNITS/KG/HR 19.99 mls/hr IV .Q24H MI Rx#: [id number] Oral 360 360 Output: Urine 1000 1000 Other: Voiding Method Toilet Toilet # Voids 1 1 - Labs CBC & Chem 7: 01/25/18 06:11 01/25/18 06:11 Labs: Abnormal Lab Results - Last 24 Hours (Table) 01/24/18 01/24/18 01/24/18 Range/Units 16:21 20:53 21:45 RBC (3.80-5.40) m/uL Hgb (11.4-16.0) gm/dL Hct (34.0-46.0) % APTT 32.3 H (22.0-30.0) sec Chloride (98-107) mmol/L Glucose (74-99) mg/dL POC Glucose (mg/dL) 152 H 167 H (75-99) mg/dL AST (14-36) U/L Total Protein (6.3-8.2) g/dL Albumin (3.5-5.0) g/dL 01/25/18 01/25/18 01/25/18 Range/Units 06:09 06:11 06:11 RBC 3.19 L (3.80-5.40) m/uL Hgb 10.3 L (11.4-16.0) gm/dL Hct 30.4 L (34.0-46.0) % APTT (22.0-30.0) sec Chloride 109 H (98-107) mmol/L Glucose 108 H (74-99) mg/dL POC Glucose (mg/dL) 114 H (75-99) mg/dL AST 48 H (14-36) U/L Total Protein 5.7 L (6.3-8.2) g/dL Albumin 2.8 L (3.5-5.0) g/dL 01/25/18 01/25/18 Range/Units 06:11 11:14 RBC (3.80-5.40) m/uL Hgb (11.4-16.0) gm/dL Hct (34.0-46.0) % APTT 47.7 H (22.0-30.0) sec Chloride (98-107) mmol/L Glucose (74-99) mg/dL POC Glucose (mg/dL) 208 H (75-99) mg/dL AST (14-36) U/L Total Protein (6.3-8.2) g/dL Albumin (3.5-5.0) g/dL Assessment and Plan Plan: The patient was seen and examined. The history and physical findings were verified. I agree with the above assessment and plan. The patient has been stable overnight. She did state that she had a twinge of neck pain when ambulating early this morning however it disappeared when she sat back down. Pulmonary function tests were performed and her FEV1 is 35% predicted. We are awaiting evaluation by Dr. Gonzalez. Carotid duplex revealed a greater than 70 % lesion in the left internal carotid artery. The patient is currently symptom free from a neurological standpoint. She remains on intravenous heparin today. We are still planning on performing her surgery sometime during this admission.
[2018-01-25] MEDS: ISOSORBIDE MONONITRATE ER 60 MG TAB.ER.24H PO SCH (09:54)
[2018-01-25] MEDS: CITALOPRAM HYDROBROMIDE 20 MG TAB PO SCH (09:54)
[2018-01-25] MEDS: FERROUS SULFATE 325 MG TAB PO SCH (09:55)
[2018-01-25] MEDS: MUPIROCIN 2% OINT 22 GM TUBE NASAL SCH ×2 (09:55→19:42)
[2018-01-25] MEDS: FUROSEMIDE 20 MG TAB PO SCH ×2 (09:55→17:37)
[2018-01-25] MEDS: METOPROLOL TARTRATE 25 MG TAB PO SCH ×2 (09:56→19:41)
[2018-01-25] MEDS: TIMOLOL 0.5% OPHTH DROPS 5 ML BTL BOTH EYES SCH ×2 (09:57→19:43)
[2018-01-25] MEDS: INSULIN DETEMIR 100 UNIT/ML 10 ML VIAL SQ SCH (10:09)
[2018-01-25 11:20] LABS: Glucose,Whole Blood 208 mg/dL (75-99)
[2018-01-25] MEDS: HEPARIN SOD,PORK IN 0.45% NACL 25,000 UNIT in 0.45% NACL 1 500ML.BAG IV SCH (11:30)
[2018-01-25] MEDS: MULTIVITAMINS, THERA 1 EACH TAB PO SCH (11:33)
--- NOTE | 2018-01-25 12:10 | P.PN ---
Subjective Progress Note Date: 01/25/18 This is a 67-year-old female patient with history of angina, prior cardiac catheterizations without any angioplasties, chronic diffuse disease, hyperlipidemia, hypertension, diabetes, asthma, who presented to the hospital with symptoms of chest discomfort with associated discomfort in her jaw and upper arms. She was also noted to have abnormality in her troponins, suggesting non-Q-wave [place], 0.2, 5.7, 9.5, 15.4.. For this reason she was advised by Dr. Brady to undergo cardiac catheterization by Dr. Juarez. The risks and the benefits were explained to the patient in detail, this will be performed tomorrow morning at 7:30. Blood pressure 120/60 heart rate in the 70s , 99% on room air. 01/25/2018 Patient underwent a cardiac catheterization yesterday which revealed critical stenosis involving the distal left main with severe triple-vessel coronary artery disease. Normal left ventricular size and systolic function. Patient had been on Plavix, which is currently on hold, she has been seen by cardiothoracic surgery and scheduled for coronary artery bypass graft surgery, after Plavix being held for 5-7 days. At the time of my examination, patient is currently chest pain-free, she states that she did ambulate with physical therapy this morning and developed some discomfort in her upper chest and neck area. This seemed to resolve with rest after getting back to bed. Patient was instructed not to be up ambulating in the hallway prior to her surgery. She is currently on IV heparin. Blood pressure 120/60 with a heart rate in the 60s to 70s, 96% on room air. White blood cell count 6.6, hemoglobin 10.3, platelet count 237. Sodium 143, potassium 3.9, BUN 15, creatinine 0.9. Objective - Vital Signs Vital signs: Vital Signs Temp 98.4 F 01/25/18 08:10 Pulse 70 01/25/18 08:10 Resp 18 01/25/18 08:10 BP 119/57 01/25/18 08:10 Pulse Ox 96 01/25/18 08:10 Intake & Output 01/24/18 01/25/18 01/25/18 18:59 06:59 18:59 Intake Total 574.017 139 606.983 Output Total 1000 1000 Balance -425.983 139 -393.017 Weight 127.2 kg Intake: IV 100 Intake, IV Titration 114.017 139 246.983 Amount Heparin Sod,Pork in 0.45% 114.017 139 246.983 NaCl 25,000 unit In 0.45 % NaCl 1 500ml.bag @ 7.75 UNITS/KG/HR 19.99 mls/hr IV .Q24H MI Rx#: [id number] Oral 360 360 Output: Urine 1000 1000 Other: Voiding Method Toilet Toilet # Voids 1 1 - Exam PHYSICAL EXAMINATION: HEENT: [Head is atraumatic, normocephalic. Pupils equal, round. Neck is supple. There is no elevated jugular venous pressure.] HEART EXAMINATION: [Heart S1, S2 normal. No murmur or gallop heard.] CHEST EXAMINATION:[ Lungs are clear to auscultation and precussion. No chest wall tenderness is noted on palpation or with deep breathing.] ABDOMEN: [ Soft, nontender. Bowel sounds are heard. No organomegaly noted]. Right groin soft, no evidence of any hematoma. EXTREMITIES:[ 2+ peripheral pulses with no evidence of peripheral edema and no calf tenderness noted]. NEUROLOGIC [patient is awake, alert and oriented -3.] . - Labs CBC & Chem 7: 01/25/18 06:11 01/25/18 06:11 Labs: Abnormal Lab Results - Last 24 Hours (Table) 01/24/18 01/24/18 01/24/18 Range/Units 16:21 20:53 21:45 RBC (3.80-5.40) m/uL Hgb (11.4-16.0) gm/dL Hct (34.0-46.0) % APTT 32.3 H (22.0-30.0) sec Chloride (98-107) mmol/L Glucose (74-99) mg/dL POC Glucose (mg/dL) 152 H 167 H (75-99) mg/dL AST (14-36) U/L Total Protein (6.3-8.2) g/dL Albumin (3.5-5.0) g/dL 01/25/18 01/25/18 01/25/18 Range/Units 06:09 06:11 06:11 RBC 3.19 L (3.80-5.40) m/uL Hgb 10.3 L (11.4-16.0) gm/dL Hct 30.4 L (34.0-46.0) % APTT (22.0-30.0) sec Chloride 109 H (98-107) mmol/L Glucose 108 H (74-99) mg/dL POC Glucose (mg/dL) 114 H (75-99) mg/dL AST 48 H (14-36) U/L Total Protein 5.7 L (6.3-8.2) g/dL Albumin 2.8 L (3.5-5.0) g/dL 01/25/18 01/25/18 Range/Units 06:11 11:14 RBC (3.80-5.40) m/uL Hgb (11.4-16.0) gm/dL Hct (34.0-46.0) % APTT 47.7 H (22.0-30.0) sec Chloride (98-107) mmol/L Glucose (74-99) mg/dL POC Glucose (mg/dL) 208 H (75-99) mg/dL AST (14-36) U/L Total Protein (6.3-8.2) g/dL Albumin (3.5-5.0) g/dL Assessment and Plan Plan: Assessment and plan #1 non-Q-wave myocardial infarction, status post cardiac catheterization which revealed critical stenosis involving the distal left main with severe triple- vessel coronary artery disease. Normal left ventricular size and systolic function. #2 diabetes #3 hypertension #4 hyperlipidemia #5 asthma Plan The patient's Plavix is currently on hold, she is on IV heparin. She will be scheduled for coronary artery bypass grafting surgery, cardio thoracic surgery once the patient to be off of the Plavix 5-7 days before her surgery. She has been instructed not to be up ambulating in the hallway until postoperative period. DNP note has been reviewed, I agree with a documented findings and plan of care. Patient was seen and examined.
--- NOTE | 2018-01-25 12:43 | ECHOF ---
Referral Reason:Preoperative cardiac surgery. MEASUREMENTS -------- HEIGHT: 170.2 cm WEIGHT: 128.8 kg BP: RVIDd: 3.7 cm (< 3.3) IVSd: 1.4 cm (0.6 - 1.1) LVIDd: 4.5 cm (3.9 - 5.3) LVPWd: 1.3 cm (0.6 - 1.1) IVSs: 1.6 cm LVIDs: 2.8 cm LVPWs: 2.0 cm LA Diam: 4.3 cm (2.7 - 3.8) LAESV Index (A-L): 48.01 ml/m Ao Diam: 2.8 cm (2.0 - 3.7) AV Cusp: 1.9 cm (1.5 - 2.6) LA Diam: 4.1 cm (2.7 - 3.8) MV EXCURSION: 16.052 mm (> 18.000) MV EF SLOPE: 48 mm/s (70 - 150) EPSS: 0.4 cm MV E Sha: 1.01 m/s MV DecT: 419 ms MV A Sha: 0.88 m/s MV E/A Ratio: 1.15 RAP: 5.00 mmHg RVSP: 13.20 mmHg FINDINGS -------- Sinus rhythm. Morbid Obesity This was a techncally difficult study with suboptimal views, , Lumason utilized for enhancement of im ages. The left ventricular size is normal. There is mild concentric left ventricular hypertrophy. Overa ll left ventricular systolic function is normal with, an EF between 55 - 60 %. The right ventricle is mild to moderately enlarged. The left atrium is mildly dilated. LA is severely dilated >40 ml/m2 The right atrial size is normal. 5.0mg OF Lumason UTLIZED: 2 OR MORE WALL SEGMENTS NOT VISUALIZED. The aortic valve is trileaflet, and appears structurally normal. No aortic stenosis or regurgitation. Mild mitral annular calcification present. Mild mitral regurgitation is present. Mild tricuspid regurgitation present. There is no evidence of pulmonary hypertension. The right v entricular systolic pressure, as measured by Doppler, is 13.20mmHg. The pulmonic valve was not well visualized. The aortic root size is normal. There is no pericardial effusion. CONCLUSIONS -------- 1. Morbid Obesity 2. This was a techncally difficult study with suboptimal views, , Lumason utilized for enhancement of images. 3. The left ventricular size is normal. 4. There is mild concentric left ventricular hypertrophy. 5. Overall left ventricular systolic function is normal with, an EF between 55 - 60 %. 6. The right ventricle is mild to moderately enlarged. 7. The left atrium is mildly dilated. 8. LA is severely dilated >40 ml/m2 9. 5.0mg OF Lumason UTLIZED: 2 OR MORE WALL SEGMENTS NOT VISUALIZED. 10. The aortic valve is trileaflet, and appears structurally normal. No aortic stenosis or regurgitat ion. 11. Mild mitral annular calcification present. 12. Mild mitral regurgitation is present. 13. Mild tricuspid regurgitation present. 14. There is no evidence of pulmonary hypertension. 15. The right ventricular systolic pressure, as measured by Doppler, is 13.20mmHg. 16. The pulmonic valve was not well visualized. 17. The aortic root size is normal. 18. There is no pericardial effusion. VOICE AND DATA TECHNICIAN: April Farnsworth RDCS
[2018-01-25] MEDS ORDERED: IPRATROPIUM-ALBUTEROL 3 ML NEB INHALATION PRN (14:55)
--- NOTE | 2018-01-25 15:39 | P.CNPUL ---
History of Present Illness Consult date: 01/25/18 Chief complaint: Preoperative pulmonary evaluation for cardiac bypass surgery. History of present illness: 67-year-old female patient with known history of coronary artery disease and previous ME back in 2013 in addition to left internal carotid artery stenosis approximately 50-79% based on ultrasound in addition to history of smoking which she quit more than 30 years ago. The patient has other comorbidities including hypertension and hyperlipidemia and obesity. The patient came into the hospital because of chest tightness and pain radiating to her jaw. She was also feeling nauseated and she had a bout of emesis. She ruled in for acute ME. The troponin was elevated and the highest was at 15.4. Based on that a cardiac catheterization was done and it showed a 60% stenosis of the left main, 95% stenosis of the right coronary artery, totally occluded circumflex coronary artery, 90% stenosis of the proximal left anterior descending, 60% stenosis in the mid anterior descending. The LV angiogram showed a normal ejection fraction of 60%. The patient was kept on IV heparin. She is currently being evaluated for cardiac bypass surgery. This is being considered yet is currently on hold knowing that the patient has taken Plavix. Follow pulmonary standpoint, the patient may have an underlying COPD although this has not been officially diagnosed. Her FEV1 was measured to be at around 35%. This was a suboptimal effort. She claims that she is able to climb a flight of stairs with some limited difficulties. No cough. No sputum production. No hemoptysis. Pleurisy. No swelling lower extremities. No recurrent pneumonias. No reported history of any obstructive sleep apnea. No asthma during childhood. No previous history of DVT and pulmonary embolism. Chest x- ray shows no evidence of any lung masses or lesions. Pulse ox on room air is 97 %.Eliquis Review of Systems Constitutional: Reports fatigue Eyes: denies blurred vision, denies bulging eye, denies decreased vision Ears: deny: decreased hearing, ear discharge, earache, tinnitus Ears, nose, mouth and throat: Denies headache, Denies sore throat Cardiovascular: Reports chest pain, Reports decreased exercise tolerance, Reports shortness of breath Respiratory: Reports dyspnea Gastrointestinal: Denies abdominal pain, Denies diarrhea, Denies nausea, Denies vomiting Musculoskeletal: Denies myalgias Musculoskeletal: absent: ankle pain, ankle stiffness, ankle swelling Integumentary: Denies pruritus, Denies rash Neurological: Denies numbness, Denies weakness Psychiatric: Denies anxiety, Denies depression Endocrine: Denies fatigue, Denies weight change Hematologic/Lymphatic: Reports as per HPI Allergic/Immunologic: Reports as per HPI Past Medical History Past Medical History: Coronary Artery Disease (CAD), Chest Pain / Angina, Diabetes Mellitus, Fibromyalgia, GERD/Reflux, Hyperlipidemia, Hypertension, Myocardial Infarction (ME), Osteoarthritis (OA) Additional Past Medical History / Comment(s): Multivessel coronary artery disease, obesity, hypertension, hyperlipidemia, diabetes mellitus, retinopathy diabetic in nature, peripheral neuropathy, glaucoma, previous history of renal failure requiring dialysis for brief period of time and this has recovered Last Myocardial Infarction Date:: 08/2014 History of Any Multi-Drug Resistant Organisms: None Reported Past Surgical History: Cholecystectomy, Heart Catheterization, Tubal Ligation Additional Past Surgical History / Comment(s): RIGHT AND LEFT KNEE ARTHROSCOPIC , RIGHT EYE SURGERY, bilateral cataract surgery, sciatica, lap band surgery. Past Anesthesia/Blood Transfusion Reactions: No Reported Reaction Past Psychological History: Depression Additional Psychological History / Comment(s): . Smoking Status: Former smoker (STARTED SMOKING AT AGE 16 QUIT AT AGE 25 SMOKED LESS THAN A WEEK) Past Alcohol Use History: None Reported, Rare Past Drug Use History: None Reported - Past Family History Father Family Medical History: Cancer Mother Family Medical History: Diabetes Mellitus, Myocardial Infarction (ME) (At age 58.) Medications and Allergies Home Medications Medication Instructions Recorded Confirmed Type Atorvastatin [Lipitor] 80 mg PO HS 09/11/14 01/22/18 History Clopidogrel [Plavix] 75 mg PO DAILY 09/11/14 01/22/18 History Ergocalciferol [Vitamin D2 50,000 unit PO SA 09/11/14 01/22/18 History (DRISDOL)] HYDROcodone/APAP 10-325MG [[place] 2 tab PO Q4H PRN 09/11/14 01/22/18 History 10-325] Insulin Detemir [Levemir] 14 unit SQ DAILY 09/11/14 01/22/18 History Insulin Glulisine [Apidra] 18 unit SQ AC-BRKFST 09/11/14 01/22/18 History Isosorbide Mononitrate [Imdur] 60 mg PO DAILY 09/11/14 01/22/18 History Latanoprost Ophth [Xalatan 0.005%] 1 drop RIGHT EYE HS 09/11/14 01/22/18 History Metoprolol Tartrate [Lopressor] 25 mg PO BID 09/11/14 01/22/18 History Nitroglycerin Sl Tabs [Nitrostat] 0.4 mg SUBLINGUAL Q5M PRN 09/11/14 01/22/18 History Aspirin EC [Ecotrin Low Dose] 81 mg PO HS 05/22/16 01/22/18 History Fexofenadine HCl [Citlaly Allergy] 180 mg PO HS PRN 05/22/16 01/22/18 History Fluticasone Nasal [place] [Flonase 1 spray EA NOSTRIL DAILY PRN 05/22/16 01/22/18 History Nasal [place]] Multivit-Min/Iron/Folic/Lutein 1 tab PO DAILY 05/22/16 01/22/18 History [Centrum Silver Women Tablet] Citalopram Hydrobromide [CeleXA] 40 mg PO DAILY 10/22/17 01/22/18 History Ferrous Sulfate [Iron (65 MG 325 mg PO DAILY 10/22/17 01/22/18 History Elemental)] Furosemide [Lasix] 20 mg PO BID 10/22/17 01/22/18 History Hydrocortisone [Hydrocortisone 1 applic TOPICAL BID PRN 10/22/17 01/22/18 History 0.05%] Insulin Glulisine [Apidra] 14 unit SQ AC-LUNCH 10/22/17 01/22/18 History Insulin Glulisine [Apidra] 16 unit SQ AC-SUPPER 10/22/17 01/22/18 History Insulin Glulisine [Apidra] See Protocol SQ ACHS 10/22/17 01/22/18 History Insulin NPH Human Isophane 21 unit SQ HS 10/22/17 01/22/18 History [humuLIN N] Polyethylene Glycol 3350 [Miralax] 17 gm PO DAILY PRN 10/22/17 01/22/18 History Ciprofloxacin HCl [Cipro] 250 mg PO Q12HR 01/22/18 01/22/18 History Montelukast [Singulair] 10 mg PO HS 01/22/18 01/22/18 History Omeprazole 40 mg PO AC-BRKFST 01/22/18 01/22/18 History Timolol 0.5% Ophth Soln [Timoptic 1 drop BOTH EYES BID 01/22/18 01/22/18 History 0.5% Ophth Soln] Allergies Allergy/AdvReac Type Severity Reaction Status Date / Time diclofenac Allergy Unknown Verified 01/22/18 11:31 peanut Allergy PER Verified 01/22/18 11:31 ALLERGY TEST Penicillins Allergy ITCHING Verified 01/22/18 11:31 AND RED SKIN Physical Exam Vitals: Vital Signs Temp Pulse Resp BP BP Pulse Ox 01/25/18 11:15 97.3 F L 62 18 123/60 97 01/25/18 08:10 98.4 F 70 18 119/57 96 01/25/18 04:00 98.2 F 66 16 132/60 98 01/25/18 00:00 20 01/24/18 20:00 97.3 F L 64 20 115/55 97 01/24/18 16:00 98.5 F 55 L 18 124/56 97 Intake and Output 01/25/18 01/25/18 01/25/18 06:59 14:59 22:59 Intake Total 139 846.983 Output Total 1000 Balance 139 -153.017 Intake: Intake, IV Titration 139 246.983 Amount Heparin Sod,Pork in 0.45% 139 246.983 NaCl 25,000 unit In 0.45 % NaCl 1 500ml.bag @ 7.75 UNITS/KG/HR 19.99 mls/hr IV .Q24H [facility] Rx#: [id number] Oral 600 Output: Urine 1000 Other: Voiding Method Toilet # Voids 1 Weight 127.2 kg - General well developed, well nourished, no distress, no pain, obese - Eyes PERRL - ENT normal pinna, normal nares, normal mucosa, no hearing loss, no congestion - Neck No lymphadenopathy, no thyromegaly. no masses, no bruits, trachea midline, no venous distension - Respiratory Lung sounds are essentially clear throughout. Respirations are symmetrical and nonlabored. Oxygen saturation are 97% on room air. - Cardiovascular Regular rhythm and rate. S1 and S2 present, negative for S3, gallop or murmur. Remote telemetry showing sinus bradycardia heart rate 55. - Abdomen Abdomen is soft, nontender and nondistended. Active bowel sounds all 4 abdominal quadrants. Obese. No guarding or rigidity. No organomegaly. Lap band port to her left upper quadrant abdomen. - Integumentary no rash, no growths, no abnormal pigmentation - Neurologic normal coordination, normal sensation - Psychiatric oriented to time, oriented to person, oriented to place, speech is normal, memory intact Results - Laboratory Findings CBC and BMP: 01/25/18 06:11 01/25/18 06:11 PT/INR, D-dimer PT 10.2 sec (9.0-12.0) 01/24/18 11:12 INR 1.0 (<1.2) 01/24/18 11:12 Abnormal lab findings: Abnormal Labs 01/22/18 01/22/18 01/22/18 10:36 10:36 10:36 RBC 3.79 L Hgb Hct APTT Chloride Glucose 241 H POC Glucose (mg/dL) Hemoglobin A1c AST Total Creatine Kinase 150 H CK-MB (CK-2) 5.9 H* Troponin I 0.281 H* Total Protein Albumin 01/22/18 01/22/18 01/22/18 12:55 16:35 16:54 RBC Hgb Hct APTT Chloride Glucose POC Glucose (mg/dL) 248 H 175 H Hemoglobin A1c AST Total Creatine Kinase 659 H CK-MB (CK-2) 43.2 H* Troponin I 5.750 H* Total Protein Albumin 01/22/18 01/22/18 01/22/18 18:57 20:19 22:28 RBC Hgb Hct APTT 33.5 H Chloride Glucose POC Glucose (mg/dL) 188 H Hemoglobin A1c AST Total Creatine Kinase 745 H CK-MB (CK-2) 39.4 H* Troponin I 9.540 H* Total Protein Albumin 01/23/18 01/23/18 01/23/18 01:53 02:26 02:33 RBC Hgb Hct APTT Chloride Glucose POC Glucose (mg/dL) 65 L 101 H Hemoglobin A1c 7.1 H AST Total Creatine Kinase CK-MB (CK-2) Troponin I Total Protein Albumin 01/23/18 01/23/18 01/23/18 02:33 05:48 06:34 RBC Hgb Hct APTT 93.9 H Chloride Glucose POC Glucose (mg/dL) 141 H Hemoglobin A1c AST Total Creatine Kinase CK-MB (CK-2) Troponin I 15.400 H* Total Protein Albumin 01/23/18 01/23/18 01/23/18 08:06 08:45 11:56 RBC Hgb Hct APTT 49.4 H Chloride Glucose POC Glucose (mg/dL) 152 H 177 H Hemoglobin A1c AST Total Creatine Kinase CK-MB (CK-2) Troponin I Total Protein Albumin 01/23/18 01/23/18 01/23/18 13:32 16:26 20:32 RBC Hgb Hct APTT 34.7 H Chloride Glucose POC Glucose (mg/dL) 188 H 243 H Hemoglobin A1c AST Total Creatine Kinase CK-MB (CK-2) Troponin I Total Protein Albumin 01/23/18 01/24/18 01/24/18 20:51 04:06 06:06 RBC 3.57 L Hgb Hct 33.7 L APTT 52.8 H Chloride Glucose POC Glucose (mg/dL) 175 H Hemoglobin A1c AST Total Creatine Kinase CK-MB (CK-2) Troponin I Total Protein Albumin 01/24/18 01/24/18 01/24/18 06:06 11:21 16:21 RBC Hgb Hct APTT Chloride Glucose POC Glucose (mg/dL) 117 H 152 H Hemoglobin A1c AST Total Creatine Kinase 337 H CK-MB (CK-2) 6.7 H* Troponin I Total Protein Albumin 01/24/18 01/24/18 01/25/18 20:53 21:45 06:09 RBC Hgb Hct APTT 32.3 H Chloride Glucose POC Glucose (mg/dL) 167 H 114 H Hemoglobin A1c AST Total Creatine Kinase CK-MB (CK-2) Troponin I Total Protein Albumin 01/25/18 01/25/18 01/25/18 06:11 06:11 06:11 RBC 3.19 L Hgb 10.3 L Hct 30.4 L APTT 47.7 H Chloride 109 H Glucose 108 H POC Glucose (mg/dL) Hemoglobin A1c AST 48 H Total Creatine Kinase CK-MB (CK-2) Troponin I Total Protein 5.7 L Albumin 2.8 L 01/25/18 11:14 RBC Hgb Hct APTT Chloride Glucose POC Glucose (mg/dL) 208 H Hemoglobin A1c AST Total Creatine Kinase CK-MB (CK-2) Troponin I Total Protein Albumin - Diagnostic Findings Chest x-ray: image reviewed Assessment and Plan Plan: Assessment 1 multivessel coronary artery disease status post acute non-ST segment elevation myocardial infarction, awaiting cardiac bypass surgery 2 obesity 3 COPD, based on the bedside spirometry the FEV1 was in the order of 35% yet this was of a suboptimal effort and it is probably a misrepresentation of HER lung capacity 4 diabetes mellitus 5 diabetic retinopathy and glaucoma 6 hypertension 7 hyperlipidemia 8 preserved LV function with a normal ejection fraction of 60% 9 left internal carotid artery stenosis estimated to be around 50-79% 10 fibromyalgia 11 acid reflux 12 degenerative arthritis Plan Put the patient on DuoNeb the blood sugars [id number]. Provide the patient incentive spirometer. The patient is able to pull approximately 2500 cc of air on her incentive spirometer. I think the spirometry is to be repeated. I would say overall she would do and she should be able to get off the mechanical ventilator other major difficulties special that she has a adequate performance status. We'll continue to follow and manage the ventilator postop and attentive any pulmonary complications should they arise.
[2018-01-25 16:25] LABS: Glucose,Whole Blood 184 mg/dL (75-99)
[2018-01-25] MEDS: LATANOPROST 0.005% OPHTH DROPS 2.5 ML BTL RIGHT EYE SCH (19:41)
[2018-01-25] MEDS: ATORVASTATIN 80 MG TAB PO SCH (19:42)
[2018-01-25] MEDS: MONTELUKAST 10 MG TAB PO SCH (19:42)
[2018-01-25] MEDS: ASPIRIN 81 MG PO SCH (19:42)
[2018-01-25] MEDS: IPRATROPIUM-ALBUTEROL 3 ML NEB INHALATION SCH ×2 (20:20)
[2018-01-25 21:15] LABS: Glucose,Whole Blood 308 mg/dL (75-99)
[2018-01-25] MEDS: INSULIN NPH 300 UNIT/3 ML VIAL SQ SCH (21:17)
[2018-01-26 03:02] LABS: Glucose,Whole Blood 72 mg/dL (75-99)
[2018-01-26 05:45] LABS: Glucose,Whole Blood 108 mg/dL (75-99)
[2018-01-26] MEDS: INSULIN ASPART 100 UNIT/ML 1 ML 10 ML VIAL SQ SCH ×4 (06:23→22:21)
[2018-01-26] MEDS: PANTOPRAZOLE 40 MG TABLET PO SCH (06:24)
[2018-01-26 06:39] LABS: Basophils % (A) 1 %; Eosinophils # (A) 0.2 k/uL (0-0.7); Eosinophils % (A) 3 %; HCT 29.3 % (34.0-46.0); HGB 10.2 gm/dL (11.4-16.0); Lymphocytes # (A) 1.7 k/uL (1.0-4.8); Lymphocytes % (A) 25 %; MCH 32.7 pg (25.0-35.0); MCHC 34.9 g/dL (31.0-37.0); MCV 93.9 fL (80.0-100.0); Mean Platelet Volume 7.1; Monocytes # (A) 0.3 k/uL (0-1.0); Monocytes % (A) 5 %; Neutrophils # (A) 4.3 k/uL (1.3-7.7); Neutrophils % (A) 65 %; Platelet Count 242 k/uL (150-450); RBC 3.12 m/uL (3.80-5.40); RDW 12.9 % (11.5-15.5); WBC 6.6 k/uL (3.8-10.6)
[2018-01-26 06:56] LABS: Albumin 3.1 g/dL (3.5-5.0); Potassium 3.9 mmol/L (3.5-5.1); Total Protein 6.1 g/dL (6.3-8.2)
[2018-01-26 06:57] LABS: Calcium 8.9 mg/dL (8.4-10.2); Total Bilirubin 0.6 mg/dL (0.2-1.3)
[2018-01-26] MEDS: HEPARIN SOD,PORK IN 0.45% NACL 25,000 UNIT in 0.45% NACL 1 500ML.BAG IV SCH (07:30)
--- NOTE | 2018-01-26 08:01 | P.PN ---
Subjective Progress Note Date: 01/26/18 Principal diagnosis: Severe coronary artery disease including left main stenosis of 60%, NSTEMI. Previous medical history of coronary artery disease with previous myocardial infarction 2013, hypertension, hyperlipidemia, fibromyalgia, depression, left carotid stenosis greater than 70%, previous tobacco dependence with the current FEV1 of 35% predicted, obesity with history of lap band surgery, renal failure with 2 treatments of hemodialysis, GERD, and diabetes mellitus type tube with current hemoglobin A1c of 7.1%. The patient's currently sitting up in bed in no acute distress. Currently denies any pain, states she is slightly short of breath with activity. Patient had 1 episode of the same kind of neck pain that brought her in yesterday morning when walking with cardiac rehab, but states she has had none since. Objective - Vital Signs Vital signs: Vital Signs Temp 98 F 01/26/18 03:17 Pulse 67 01/26/18 03:23 Resp 17 01/26/18 03:23 BP 141/65 01/26/18 03:17 Pulse Ox 99 01/26/18 03:17 Intake & Output 01/25/18 01/26/18 01/26/18 18:59 06:59 18:59 Intake Total 6933.462 6219 500 Output Total 1000 Balance 68.983 1000 500 Weight 127.9 kg Intake: IV 600 .9 600 Intake, IV Titration 246.983 500 Amount Heparin Sod,Pork in 0.45% 246.983 500 NaCl 25,000 unit In 0.45 % NaCl 1 500ml.bag @ 7.75 UNITS/KG/HR 19.99 mls/hr IV .Q24H [facility] Rx#: [id number] Oral 822 400 Output: Urine 1000 Other: Voiding Method Toilet # Voids 1 - Constitutional General appearance: Present: cooperative, no acute distress, obese - Respiratory Details: Lungs sounds clear bilaterally. Respirations even, nonlabored. Currently on room air with oxygen saturation 99%. Able to achieve 2500 mL on her incentive spirometry. - Cardiovascular Details: S1, S2 present. Regular rate and rhythm, sinus rhythm on telemetry. Palpable peripheral pulses bilaterally. No edema present. - Gastrointestinal Gastrointestinal Comment(s): Abdomen soft, nontender, nondistended, obese. Bowel sounds active 4 quadrants. Tolerating diet. - Genitourinary Genitourinary Comment(s): Continues to void. - Integumentary Integumentary Comment(s): Skin is warm and dry with evidence of good perfusion. - Neurologic Neurologic: Present: CNII-XII intact - Musculoskeletal Musculoskeletal Comment(s): Patient ambulates with cane. Musculoskeletal: Present: gait normal, strength equal bilaterally - Psychiatric Psychiatric: Present: A&O x's 3, appropriate affect, intact judgment & insight - Allied health notes Allied health notes reviewed: nursing - Labs CBC & Chem 7: 01/26/18 06:07 01/26/18 06:07 Labs: Abnormal Lab Results - Last 24 Hours (Table) 01/25/18 01/25/18 01/25/18 Range/Units 11:14 16:23 21:13 RBC (3.80-5.40) m/uL Hgb (11.4-16.0) gm/dL Hct (34.0-46.0) % APTT (22.0-30.0) sec Chloride (98-107) mmol/L Glucose (74-99) mg/dL POC Glucose (mg/dL) 208 H 184 H 308 H (75-99) mg/dL AST (14-36) U/L Total Protein (6.3-8.2) g/dL Albumin (3.5-5.0) g/dL 01/26/18 01/26/18 01/26/18 Range/Units 03:00 05:43 06:07 RBC 3.12 L (3.80-5.40) m/uL Hgb 10.2 L (11.4-16.0) gm/dL Hct 29.3 L (34.0-46.0) % APTT (22.0-30.0) sec Chloride (98-107) mmol/L Glucose (74-99) mg/dL POC Glucose (mg/dL) 72 L 108 H (75-99) mg/dL AST (14-36) U/L Total Protein (6.3-8.2) g/dL Albumin (3.5-5.0) g/dL 01/26/18 01/26/18 Range/Units 06:07 06:07 RBC (3.80-5.40) m/uL Hgb (11.4-16.0) gm/dL Hct (34.0-46.0) % APTT 46.2 H (22.0-30.0) sec Chloride 109 H (98-107) mmol/L Glucose 102 H (74-99) mg/dL POC Glucose (mg/dL) (75-99) mg/dL AST 49 H (14-36) U/L Total Protein 6.1 L (6.3-8.2) g/dL Albumin 3.1 L (3.5-5.0) g/dL Assessment and Plan (1) History of coronary artery disease Current Visit: Yes Status: Chronic Code(s): Z86.79 - PERSONAL HISTORY OF OTHER DISEASES OF THE CIRCULATORY SYSTEM SNOMED Code(s): 146759302 (2) Hyperlipidemia Current Visit: Yes Status: Chronic Code(s): E78.5 - HYPERLIPIDEMIA, UNSPECIFIED SNOMED Code(s): 03888190 (3) Hypertension Current Visit: Yes Status: Chronic Code(s): I10 - ESSENTIAL (PRIMARY) HYPERTENSION SNOMED Code(s): 81805810 (4) Morbid obesity with BMI of 40.0-44.9, adult Current Visit: Yes Status: Chronic Code(s): E66.01 - MORBID (SEVERE) OBESITY DUE TO EXCESS CALORIES; Z68.41 - BODY MASS INDEX (BMI) 40.0-44.9, ADULT SNOMED Code(s): 694831557 (5) Non-STEMI (non-ST elevated myocardial infarction) Current Visit: Yes Status: Acute Code(s): I21.4 - NON-ST ELEVATION (NSTEMI) MYOCARDIAL INFARCTION SNOMED Code(s): 489802375 (6) Diabetes mellitus Current Visit: Yes Status: Chronic Code(s): E11.9 - TYPE 2 DIABETES MELLITUS WITHOUT COMPLICATIONS SNOMED Code(s): 23220845 (7) Left main coronary artery disease Current Visit: Yes Status: Chronic Code(s): I25.10 - ATHSCL HEART DISEASE OF [place] CORONARY ARTERY W/O ANG PCTRS SNOMED Code(s): 987650126 (8) Tobacco dependence in remission Current Visit: No Status: Resolved Code(s): F17.201 - NICOTINE DEPENDENCE, UNSPECIFIED, IN REMISSION SNOMED Code(s): 778760167 (9) Carotid stenosis, left Current Visit: Yes Status: Chronic Code(s): I65.22 - OCCLUSION AND STENOSIS OF LEFT CAROTID ARTERY SNOMED Code(s): 661179454159431 Plan: 1. Continue aspirin, statin, Imdur, beta kris, IV heparin. Continue to hold Plavix. 2. Preoperative teaching reinforced. 3. STS risk score calculated and relayed to the surgeon. 4. Encourage incentive spirometry. Encourage continued smoking cessation. 5. Bronchodilators added yesterday per Dr. Gonzalez's request. Will repeat pulmonary function test today. 6. Increase activity, ambulate in room. Cardiac rehab following. 7. Will discuss with patient and cardiology plans for surgical revascularization regarding timing. Ideally, would like patient to be off Plavix for 5-7 days prior to surgery. 8. More recommendations to follow. Time with Patient: Greater than 30
[2018-01-26] MEDS: IPRATROPIUM-ALBUTEROL 3 ML NEB INHALATION SCH ×4 (08:20→20:34)
--- NOTE | 2018-01-26 08:21 | P.PN ---
Progress Note - Text The patient is a 67-year-old female who presented with severe neck and jaw discomfort and was ruled in for a non-Q-wave myocardial infarction. She was found on catheterization to have triple vessel disease including the left main and plans are for upcoming coronary artery bypass surgery. She has been evaluated by surgery along with pulmonary medicine and cardiology. She is presently off her Plavix. She is not having any pain at rest but she stated yesterday she did redevelop some pain when she was ambulating in the ball and has presently stopped that. Vital signs reveal temperature of 98 with a pulse of 67 respirations 17. Blood pressure 141/65 and she is 99% saturated on room air. Lung and heart examination is clear and regular. No unusual distal edema. No focal neurological deficits. Laboratory This morning white count 6.6 with a hemoglobin 10.2 and a platelet count of 242 PTT is 46.2 this morning. Sodium 143 with potassium 3.9. Blood sugar was 102 this morning. BUN of 14 with creatinine of 0.88 giving her a GFR of 69. Total protein 6.1 with albumin 3.1. Impressions and plans Once again plans are for upcoming coronary artery bypass surgery. Patient appears to understand risks versus benefits and need for surgical intervention.
[2018-01-26 08:24] LABS: Appearance,Urine Clear (Clear); Bilirubin,Urine Negative (Negative); Blood,Urine Negative (Negative); Color,Urine Light Yellow; Glucose,Urine (UA) Negative (Negative); Ketones,Urine Negative (Negative); Leukocyte Esterase,Urine Negative (Negative); Nitrite,Urine Negative (Negative); Protein,Urine Negative (Negative); Specific Gravity,Urine 1.008 (1.001-1.035); Urobilinogen,Urine <2.0 mg/dL (<2.0)
[2018-01-26] MEDS: MUPIROCIN 2% OINT 22 GM TUBE NASAL SCH ×2 (08:51→21:40)
[2018-01-26] MEDS: FUROSEMIDE 20 MG TAB PO SCH ×2 (08:51→16:11)
[2018-01-26] MEDS: ISOSORBIDE MONONITRATE ER 60 MG TAB.ER.24H PO SCH (08:52)
[2018-01-26] MEDS: FERROUS SULFATE 325 MG TAB PO SCH (08:52)
[2018-01-26] MEDS: CITALOPRAM HYDROBROMIDE 20 MG TAB PO SCH (08:52)
[2018-01-26] MEDS: METOPROLOL TARTRATE 25 MG TAB PO SCH ×2 (08:52→21:40)
[2018-01-26] MEDS: TIMOLOL 0.5% OPHTH DROPS 5 ML BTL BOTH EYES SCH ×2 (08:53→21:40)
[2018-01-26] MEDS: INSULIN DETEMIR 100 UNIT/ML 10 ML VIAL SQ SCH (09:26)
[2018-01-26] MEDS ORDERED: MD COMMUNICATION TO PHARMACY 1 EACH MISC PO ONE (10:15)
[2018-01-26 11:49] LABS: Glucose,Whole Blood 159 mg/dL (75-99)
[2018-01-26] MEDS: MULTIVITAMINS, THERA 1 EACH TAB PO SCH (12:26)
--- NOTE | 2018-01-26 12:50 | P.PN ---
Subjective Progress Note Date: 01/26/18 This is a 67-year-old female patient with history of angina, prior cardiac catheterizations without any angioplasties, chronic diffuse disease, hyperlipidemia, hypertension, diabetes, asthma, who presented to the hospital with symptoms of chest discomfort with associated discomfort in her jaw and upper arms. She was also noted to have abnormality in her troponins, suggesting non-Q-wave OR, 0.2, 5.7, 9.5, 15.4.. For this reason she was advised by Dr. Brady to undergo cardiac catheterization by Dr. Juarez. The risks and the benefits were explained to the patient in detail, this will be performed tomorrow morning at 7:30. Blood pressure 120/60 heart rate in the 70s , 99% on room air. 01/25/2018 Patient underwent a cardiac catheterization yesterday which revealed critical stenosis involving the distal left main with severe triple-vessel coronary artery disease. Normal left ventricular size and systolic function. Patient had been on Plavix, which is currently on hold, she has been seen by cardiothoracic surgery and scheduled for coronary artery bypass graft surgery, after Plavix being held for 5-7 days. At the time of my examination, patient is currently chest pain-free, she states that she did ambulate with physical therapy this morning and developed some discomfort in her upper chest and neck area. This seemed to resolve with rest after getting back to bed. Patient was instructed not to be up ambulating in the hallway prior to her surgery. She is currently on IV heparin. Blood pressure 120/60 with a heart rate in the 60s to 70s, 96% on room air. White blood cell count 6.6, hemoglobin 10.3, platelet count 237. Sodium 143, potassium 3.9, BUN 15, creatinine 0.9. 01/26/2018 Was seen and examined this morning, denies any chest discomfort, breathing overall has been stable. She is scheduled to undergo coronary artery bypass grafting surgery tomorrow. Blood pressure 140/64, heart rate in the 60s to 70s , afebrile. White blood cell count 6.6, hemoglobin 10.2, platelet count 242. Sodium 143, potassium 3.9, BUN 14, creatinine 0.8. Objective - Vital Signs Vital signs: Vital Signs Temp 98.3 F 01/26/18 07:30 Pulse 84 01/26/18 12:07 Resp 18 01/26/18 07:30 BP 159/72 01/26/18 07:30 Pulse Ox 99 01/26/18 08:22 Intake & Output 01/25/18 01/26/18 01/26/18 18:59 06:59 18:59 Intake Total 8730.461 8004 980 Output Total 1000 Balance 68.983 1000 980 Weight 127.9 kg Intake: IV 600 .9 600 Intake, IV Titration 246.983 500 Amount Heparin Sod,Pork in 0.45% 246.983 500 NaCl 25,000 unit In 0.45 % NaCl 1 500ml.bag @ 7.75 UNITS/KG/HR 19.99 mls/hr IV .Q24H [facility] Rx#: [id number] Oral 822 400 480 Output: Urine 1000 Other: Voiding Method Toilet # Voids 1 - Exam PHYSICAL EXAMINATION: HEENT: [Head is atraumatic, normocephalic. Pupils equal, round. Neck is supple. There is no elevated jugular venous pressure.] HEART EXAMINATION: [Heart S1, S2 normal. No murmur or gallop heard.] CHEST EXAMINATION:[ Lungs are clear to auscultation and precussion. No chest wall tenderness is noted on palpation or with deep breathing.] ABDOMEN: [ Soft, nontender. Bowel sounds are heard. No organomegaly noted]. Right groin soft, no evidence of any hematoma. EXTREMITIES:[ 2+ peripheral pulses with no evidence of peripheral edema and no calf tenderness noted]. NEUROLOGIC [patient is awake, alert and oriented -3.] . - Labs CBC & Chem 7: 01/26/18 06:07 01/26/18 06:07 Labs: Abnormal Lab Results - Last 24 Hours (Table) 01/25/18 01/25/18 01/26/18 Range/Units 16:23 21:13 03:00 RBC (3.80-5.40) m/uL Hgb (11.4-16.0) gm/dL Hct (34.0-46.0) % APTT (22.0-30.0) sec Chloride (98-107) mmol/L Glucose (74-99) mg/dL POC Glucose (mg/dL) 184 H 308 H 72 L (75-99) mg/dL AST (14-36) U/L Total Protein (6.3-8.2) g/dL Albumin (3.5-5.0) g/dL 01/26/18 01/26/18 01/26/18 Range/Units 05:43 06:07 06:07 RBC 3.12 L (3.80-5.40) m/uL Hgb 10.2 L (11.4-16.0) gm/dL Hct 29.3 L (34.0-46.0) % APTT (22.0-30.0) sec Chloride 109 H (98-107) mmol/L Glucose 102 H (74-99) mg/dL POC Glucose (mg/dL) 108 H (75-99) mg/dL AST 49 H (14-36) U/L Total Protein 6.1 L (6.3-8.2) g/dL Albumin 3.1 L (3.5-5.0) g/dL 01/26/18 01/26/18 Range/Units 06:07 11:43 RBC (3.80-5.40) m/uL Hgb (11.4-16.0) gm/dL Hct (34.0-46.0) % APTT 46.2 H (22.0-30.0) sec Chloride (98-107) mmol/L Glucose (74-99) mg/dL POC Glucose (mg/dL) 159 H (75-99) mg/dL AST (14-36) U/L Total Protein (6.3-8.2) g/dL Albumin (3.5-5.0) g/dL Assessment and Plan Plan: Assessment and plan #1 non-Q-wave myocardial infarction, status post cardiac catheterization which revealed critical stenosis involving the distal left main with severe triple- vessel coronary artery disease. Normal left ventricular size and systolic function. #2 diabetes #3 hypertension #4 hyperlipidemia #5 asthma Plan The patient's Plavix is currently on hold, she is on IV heparin. She is scheduled for coronary artery bypass grafting surgery tomorrow. We will continue to follow along closely. DNP note has been reviewed, I agree with a documented findings and plan of care. Patient was seen and examined.
--- NOTE | 2018-01-26 16:23 | P.PN ---
Subjective Progress Note Date: 01/26/18 67-year-old female patient with known history of coronary artery disease and previous AR back in 2013 in addition to left internal carotid artery stenosis approximately 50-79% based on ultrasound in addition to history of smoking which she quit more than 30 years ago. The patient has other comorbidities including hypertension and hyperlipidemia and obesity. The patient came into the hospital because of chest tightness and pain radiating to her jaw. She was also feeling nauseated and she had a bout of emesis. She ruled in for acute AR. The troponin was elevated and the highest was at 15.4. Based on that a cardiac catheterization was done and it showed a 60% stenosis of the left main, 95% stenosis of the right coronary artery, totally occluded circumflex coronary artery, 90% stenosis of the proximal left anterior descending, 60% stenosis in the mid anterior descending. The LV angiogram showed a normal ejection fraction of 60%. The patient was kept on IV heparin. She is currently being evaluated for cardiac bypass surgery. This is being considered yet is currently on hold knowing that the patient has taken Plavix. Follow pulmonary standpoint, the patient may have an underlying COPD although this has not been officially diagnosed. Her FEV1 was measured to be at around 35%. This was a suboptimal effort. She claims that she is able to climb a flight of stairs with some limited difficulties. No cough. No sputum production. No hemoptysis. Pleurisy. No swelling lower extremities. No recurrent pneumonias. No reported history of any obstructive sleep apnea. No asthma during childhood. No previous history of DVT and pulmonary embolism. Chest x- ray shows no evidence of any lung masses or lesions. Pulse ox on room air is 97 %. On the I'm seeing Abril for a follow-up. The patient is ready for bypass surgery tomorrow. She repeated her spirometry and she did much better and her FEV1 essentially normalized. I think the initial one was a suboptimal study. Meanwhile, she remains free of any chest pain. No cough or sputum production. No fever chills or night sweats. No other complaints otherwise for now. For the most part she is ready for coronary artery bypass surgery to be done tomorrow by Dr. Perera. Objective - Vital Signs Vital signs: Vital Signs Temp 98.3 F 01/26/18 07:30 Pulse 80 03/29/18 16:14 Resp 18 01/26/18 07:30 BP 159/72 01/26/18 07:30 Pulse Ox 99 01/26/18 08:22 Intake & Output 01/25/18 01/26/18 01/26/18 18:59 06:59 18:59 Intake Total 8185.372 2275 980 Output Total 1000 Balance 68.983 1000 980 Weight 127.9 kg Intake: IV 600 .9 600 Intake, IV Titration 246.983 500 Amount Heparin Sod,Pork in 0.45% 246.983 500 NaCl 25,000 unit In 0.45 % NaCl 1 500ml.bag @ 7.75 UNITS/KG/HR 19.99 mls/hr IV .Q24H [facility] Rx#: [id number] Oral 822 400 480 Output: Urine 1000 Other: Voiding Method Toilet # Voids 1 - Exam - General well developed, well nourished, no distress, no pain, obese - Eyes PERRL - ENT normal pinna, normal nares, normal mucosa, no hearing loss, no congestion - Neck No lymphadenopathy, no thyromegaly. no masses, no bruits, trachea midline, no venous distension - Respiratory Lung sounds are essentially clear throughout. Respirations are symmetrical and nonlabored. Oxygen saturation are 97% on room air. - Cardiovascular Regular rhythm and rate. S1 and S2 present, negative for S3, gallop or murmur. Remote telemetry showing sinus bradycardia heart rate 55. - Abdomen Abdomen is soft, nontender and nondistended. Active bowel sounds all 4 abdominal quadrants. Obese. No guarding or rigidity. No organomegaly. Lap band port to her left upper quadrant abdomen. - Integumentary no rash, no growths, no abnormal pigmentation - Neurologic normal coordination, normal sensation - Psychiatric oriented to time, oriented to person, oriented to place, speech is normal, memory intact - Labs CBC & Chem 7: 01/26/18 06:07 01/26/18 06:07 Labs: Abnormal Lab Results - Last 24 Hours (Table) 01/25/18 01/25/18 01/26/18 Range/Units 16:23 21:13 03:00 RBC (3.80-5.40) m/uL Hgb (11.4-16.0) gm/dL Hct (34.0-46.0) % APTT (22.0-30.0) sec Chloride (98-107) mmol/L Glucose (74-99) mg/dL POC Glucose (mg/dL) 184 H 308 H 72 L (75-99) mg/dL AST (14-36) U/L Total Protein (6.3-8.2) g/dL Albumin (3.5-5.0) g/dL Crossmatch 01/26/18 01/26/18 01/26/18 Range/Units 05:43 06:07 06:07 RBC 3.12 L (3.80-5.40) m/uL Hgb 10.2 L (11.4-16.0) gm/dL Hct 29.3 L (34.0-46.0) % APTT (22.0-30.0) sec Chloride 109 H (98-107) mmol/L Glucose 102 H (74-99) mg/dL POC Glucose (mg/dL) 108 H (75-99) mg/dL AST 49 H (14-36) U/L Total Protein 6.1 L (6.3-8.2) g/dL Albumin 3.1 L (3.5-5.0) g/dL Crossmatch 01/26/18 01/26/18 01/26/18 Range/Units 06:07 11:40 11:43 RBC (3.80-5.40) m/uL Hgb (11.4-16.0) gm/dL Hct (34.0-46.0) % APTT 46.2 H (22.0-30.0) sec Chloride (98-107) mmol/L Glucose (74-99) mg/dL POC Glucose (mg/dL) 159 H (75-99) mg/dL AST (14-36) U/L Total Protein (6.3-8.2) g/dL Albumin (3.5-5.0) g/dL Crossmatch See Detail 01/26/18 Range/Units 13:57 RBC (3.80-5.40) m/uL Hgb (11.4-16.0) gm/dL Hct (34.0-46.0) % APTT 71.8 H (22.0-30.0) sec Chloride (98-107) mmol/L Glucose (74-99) mg/dL POC Glucose (mg/dL) (75-99) mg/dL AST (14-36) U/L Total Protein (6.3-8.2) g/dL Albumin (3.5-5.0) g/dL Crossmatch Microbiology - Last 24 Hours (Table) 01/26/18 07:59 Urine Culture - Preliminary Urine,Clean Catch 01/26/18 08:35 Nasal Screen MRSA/MSSA (BHARGAVI) - Preliminary Nasal Swab Assessment and Plan Plan: Assessment 1 multivessel coronary artery disease status post acute non-ST segment elevation myocardial infarction, awaiting cardiac bypass surgery 2 obesity 3 COPD, based on the bedside spirometry the FEV1 was in the order of 35% yet this was of a suboptimal effort and it is probably a misrepresentation of HER lung capacity 4 diabetes mellitus 5 diabetic retinopathy and glaucoma 6 hypertension 7 hyperlipidemia 8 preserved LV function with a normal ejection fraction of 60% 9 left internal carotid artery stenosis estimated to be around 50-79% 10 fibromyalgia 11 acid reflux 12 degenerative arthritis Plan Condition is stable. FEV1 was remeasured and the numbers normalized. Continues incentive spirometer. Continued IV heparin. Coronary artery bypass surgery in a.m.
[2018-01-26 16:53] LABS: Glucose,Whole Blood 201 mg/dL (75-99)
[2018-01-26 20:45] LABS: Glucose,Whole Blood 169 mg/dL (75-99)
[2018-01-26] MEDS: MONTELUKAST 10 MG TAB PO SCH (21:39)
[2018-01-26] MEDS: ASPIRIN 81 MG PO SCH (21:39)
[2018-01-26] MEDS: ATORVASTATIN 80 MG TAB PO SCH (21:39)
[2018-01-26] MEDS: LATANOPROST 0.005% OPHTH DROPS 2.5 ML BTL RIGHT EYE SCH (21:39)
[2018-01-26] MEDS: ALPRAZolam 0.5 MG TAB PO PRN (22:20)
[2018-01-26] MEDS: INSULIN NPH 300 UNIT/3 ML VIAL SQ SCH (22:21)
[2018-01-26 23:57] LABS: Glucose,Whole Blood 173 mg/dL (75-99)
[2018-01-27] MEDS: HEPARIN SOD,PORK IN 0.45% NACL 25,000 UNIT in 0.45% NACL 1 500ML.BAG IV SCH (01:10)
[2018-01-27] MEDS ORDERED: LACTATED RINGERS 1,000 ML IV PRN (05:00)
[2018-01-27] MEDS ORDERED: SODIUM BICARB 8.4% 50 ML SYR (1 MEQ/ML) IV PRN (05:00)
[2018-01-27] MEDS ORDERED: AMINOCAPROIC ACID 250 MG/ML 20 ML VIAL IV PRN (05:00)
[2018-01-27] MEDS ORDERED: PROTAMINE SULFATE 250 MG in EMPTY BAG 1 BAG IV PRN (05:00)
[2018-01-27] MEDS ORDERED: CHLORHEXIDINE GLUCONATE 15 ML CUP MUCOUS MEM PRN (05:00)
[2018-01-27] MEDS ORDERED: DEXTROSE 5% IN WATER 1,000 ML with POTASSIUM CHLORIDE 25 MEQ, SODIUM CHLORIDE 2.5MEQ/ML... IV PRN ×6 (05:00)
[2018-01-27] MEDS ORDERED: ATORVASTATIN 10 MG TAB PO PRN (05:00)
[2018-01-27] MEDS ORDERED: ALBUMIN HUMAN 5% 500 ML in EMPTY BAG 1 BAG IVPB PRN ×6 (05:00)
[2018-01-27] MEDS ORDERED: MAGNESIUM SULFATE SYG 4.06 MEQ/ML SYRINGE IV PRN (05:00)
[2018-01-27] MEDS ORDERED: PROPOFOL 1,000 MG in EMPTY BAG 1 BAG IV PRN (05:00)
[2018-01-27] MEDS ORDERED: AMINOCAPROIC ACID 5,000 MG in DEXTROSE 5% IN WATER 50 ML IV PRN ×4 (05:00)
[2018-01-27] MEDS ORDERED: PHENYLEPHRINE 40 MG in SODIUM CHLORIDE 0.9% 250 ML IV PRN (05:00)
[2018-01-27] MEDS ORDERED: PAPAVERINE 360 MG in SODIUM CHLORIDE 0.9% 90 ML IV PRN (05:00)
[2018-01-27] MEDS ORDERED: ceFAZolin 2,000 MG in SODIUM CHLORIDE 0.9% 30 ML IVPB PRN (05:00)
[2018-01-27] MEDS ORDERED: METOPROLOL TARTRATE 12.5 MG TAB PO PRN (05:00)
[2018-01-27] MEDS ORDERED: PROTAMINE SULFATE 10 MG/ML 25 ML VIAL IV PRN (05:00)
[2018-01-27] MEDS ORDERED: ceFAZolin 1,000 MG in SODIUM CHLORIDE 0.9% IRRIGATIO 1,000 ML IRRIGATION PRN (05:00)
[2018-01-27] MEDS ORDERED: ASPIRIN 81 MG PO PRN (05:00)
[2018-01-27] MEDS ORDERED: NOREPINEPHRIN 4 MG-0.9% NS PMX 4 MG/250 ML ML IV PRN (05:00)
[2018-01-27] MEDS ORDERED: HEPARIN SODIUM 1,000 UN/ML (10ML VL) IV PRN (05:00)
[2018-01-27] MEDS ORDERED: NITROGLYCERIN-D5W PMX 25 MG/250 ML BTL IV PRN (05:00)
[2018-01-27] MEDS ORDERED: PHENYLEPHRINE-0.9% NACL SYG 1 MG/10 ML SYRINGE IV PRN ×4 (05:00)
[2018-01-27] MEDS ORDERED: TRANEXAMIC ACID 2,000 MG in SODIUM CHLORIDE 0.9% 180 ML IV PRN ×2 (05:00→09:02)
[2018-01-27] MEDS ORDERED: DEXTROSE 5% IN WATER 1,000 ML with POTASSIUM CHLORIDE 110 MEQ, MAGNESIUM SULFATE 16 MEQ... IV PRN ×5 (05:00)
[2018-01-27] MEDS ORDERED: ceFAZolin 3 GM in SODIUM CHLORIDE 0.9% 30 ML IVPB PRN (05:00)
[2018-01-27] MEDS ORDERED: HEPARIN SODIUM,PORCINE 5,000 UNIT in SODIUM CHLORIDE 0.9% 500 ML IV PRN (05:00)
[2018-01-27] MEDS ORDERED: INSULIN REGULAR 100 UNIT in SODIUM CHLORIDE 0.9% 100 ML IV PRN (05:00)
[2018-01-27] MEDS ORDERED: CALCIUM CHLORIDE 100 MG/ML 10 ML SYRINGE IVP PRN (05:00)
[2018-01-27] MEDS ORDERED: CLEVIDIPINE BUTYRATE 25 MG in EMPTY BAG 1 BAG IV PRN (05:00)
[2018-01-27] MEDS ORDERED: ALBUMIN HUMAN 25% 50 ML in EMPTY BAG 1 BAG IVPB PRN (05:00)
[2018-01-27] MEDS ORDERED: MANNITOL 25% 12.5 GM/50 ML VIAL IV PRN ×2 (05:00)
[2018-01-27] MEDS ORDERED: NITROGLYCERIN-D5W PMX 50 MG in DEXTROSE/WATER 1 250ML.BAG IV PRN (05:00)
[2018-01-27 05:39] LABS: Glucose,Whole Blood 84 mg/dL (75-99)
[2018-01-27] MEDS ORDERED: LACTATED RINGERS 1,000 ML IV SCH (06:12)
[2018-01-27] MEDS ORDERED: MIDAZOLAM 2 MG/2 ML VIAL IV PRN (06:12)
[2018-01-27 06:33] LABS: Glucose,Whole Blood 97 mg/dL (75-99)
[2018-01-27 06:48] LABS: Basophils % (A) 0 %; Eosinophils # (A) 0.2 k/uL (0-0.7); Eosinophils % (A) 2 %; HCT 31.6 % (34.0-46.0); HGB 10.8 gm/dL (11.4-16.0); Lymphocytes # (A) 1.5 k/uL (1.0-4.8); Lymphocytes % (A) 23 %; MCH 32.3 pg (25.0-35.0); MCV 94.9 fL (80.0-100.0); Mean Platelet Volume 7.1; Monocytes # (A) 0.3 k/uL (0-1.0); Monocytes % (A) 5 %; Neutrophils # (A) 4.5 k/uL (1.3-7.7); Neutrophils % (A) 67 %; Platelet Count 276 k/uL (150-450); RBC 3.33 m/uL (3.80-5.40); WBC 6.7 k/uL (3.8-10.6)
[2018-01-27 06:56] LABS: Albumin 3.4 g/dL (3.5-5.0); Calcium 9.1 mg/dL (8.4-10.2); INR 1.1 (<1.2); Potassium 3.7 mmol/L (3.5-5.1); Prothrombin Time 10.6 sec (9.0-12.0); Total Bilirubin 0.6 mg/dL (0.2-1.3); Total Protein 6.6 g/dL (6.3-8.2)
[2018-01-27] MEDS: IPRATROPIUM-ALBUTEROL 3 ML NEB INHALATION SCH ×4 (08:04→20:45)
[2018-01-27] MEDS ORDERED: SUCCINYLCHOLINE CHLORIDE 100 MG/5 ML SYR IV ONE (08:08)
[2018-01-27] MEDS ORDERED: PROTAMINE SULFATE 10 MG/ML 25 ML VIAL IV ONE (08:08)
[2018-01-27] MEDS ORDERED: SODIUM CHLORIDE 0.9% 1,000 ML BAG ONE (08:08)
[2018-01-27] MEDS ORDERED: fentaNYL (PF) 50 MCG/ML 50 ML VIAL ONE (08:08)
[2018-01-27] MEDS ORDERED: TRANEXAMIC ACID 1,000 MG/10 ML VIAL ONE (08:08)
[2018-01-27] MEDS ORDERED: SODIUM CHLORIDE 0.9% 250 ML BAG ONE (08:08)
[2018-01-27] MEDS ORDERED: PROPOFOL 10 MG/ML 20 ML VIAL IV ONE (08:08)
[2018-01-27] MEDS ORDERED: MIDAZOLAM 2 MG/2 ML VIAL ONE (08:08)
[2018-01-27] MEDS ORDERED: VECURONIUM 10 MG VIAL IV ONE (08:08)
[2018-01-27] MEDS ORDERED: ELECTROLYTE-R (PH 7.4) 1,000 ML IV.SOLN IV ONE (08:08)
[2018-01-27] MEDS ORDERED: MAGNESIUM SULFATE-D5W PMX 1 GM/100 ML BAG IVPB ONE (08:08)
[2018-01-27 08:54] LABS: ABG Base Excess -0.7 mmol/L; ABG HCO3 23 mmol/L (21-25); ABG Oxygen Saturation 99.6 % (94-97); ABG PCO2 33 mmHg (35-45); ABG PH 7.45 (7.35-7.45); ABG PO2 139 mmHg (83-108); ABG Potassium Whole Blood 3.7 mmol/L (3.4-4.5); ABG Sodium Whole Blood 142 mmol/L (135-146); ABG TCO2 24 mmol/L (19-24)
[2018-01-27] MEDS ORDERED: SODIUM CHLORIDE 0.9% 500 ML with HEPARIN SODIUM,PORCINE 5,000 UNIT IV ONE ×2 (09:25)
[2018-01-27] MEDS ORDERED: PAPAVERINE 360 MG in SODIUM CHLORIDE 0.9% 90 ML IV ONE (09:25)
[2018-01-27 10:17] LABS: ABG Base Excess -1.6 mmol/L; ABG HCO3 24 mmol/L (21-25); ABG Oxygen Saturation 99.6 % (94-97); ABG PCO2 41 mmHg (35-45); ABG PH 7.37 (7.35-7.45); ABG PO2 166 mmHg (83-108); ABG Potassium Whole Blood 3.5 mmol/L (3.4-4.5); ABG Sodium Whole Blood 143 mmol/L (135-146); ABG TCO2 25 mmol/L (19-24)
[2018-01-27 12:36] LABS: ABG Base Excess -1.7 mmol/L; ABG HCO3 24 mmol/L (21-25); ABG Oxygen Saturation 99.8 % (94-97); ABG PCO2 41 mmHg (35-45); ABG PH 7.37 (7.35-7.45); ABG PO2 228 mmHg (83-108); ABG Potassium Whole Blood 4.7 mmol/L (3.4-4.5); ABG Sodium Whole Blood 138 mmol/L (135-146); ABG TCO2 25 mmol/L (19-24)
[2018-01-27 13:28] LABS: ABG HCO3 23 mmol/L (21-25); ABG Oxygen Saturation 99.9 % (94-97); ABG PCO2 46 mmHg (35-45); ABG PH 7.31 (7.35-7.45); ABG PO2 368 mmHg (83-108); ABG Potassium Whole Blood 4.6 mmol/L (3.4-4.5); ABG Sodium Whole Blood 139 mmol/L (135-146); ABG TCO2 25 mmol/L (19-24)
[2018-01-27 14:28] LABS: ABG Base Excess -2.8 mmol/L; ABG HCO3 22 mmol/L (21-25); ABG PCO2 39 mmHg (35-45); ABG PH 7.37 (7.35-7.45); ABG PO2 278 mmHg (83-108); ABG Potassium Whole Blood 3.8 mmol/L (3.4-4.5); ABG Sodium Whole Blood 142 mmol/L (135-146); ABG TCO2 24 mmol/L (19-24)
[2018-01-27] MEDS ORDERED: ALBUMIN HUMAN 5% 250 ML IVPB ONE (14:31)
[2018-01-27 14:43] LABS: ABG Base Excess -2.1 mmol/L; ABG HCO3 23 mmol/L (21-25); ABG Oxygen Saturation 99.9 % (94-97); ABG PCO2 37 mmHg (35-45); ABG PH 7.39 (7.35-7.45); ABG PO2 237 mmHg (83-108); ABG Potassium Whole Blood 3.6 mmol/L (3.4-4.5); ABG Sodium Whole Blood 139 mmol/L (135-146); ABG TCO2 24 mmol/L (19-24)
[2018-01-27] MEDS ORDERED: METOCLOPRAMIDE 5 MG/ML 2 ML VIAL IVP PRN (15:18)
[2018-01-27] MEDS ORDERED: MORPHINE SULFATE/PF 10MG/10ML VL IVP PRN (15:18)
[2018-01-27] MEDS ORDERED: CALCIUM GLUCONATE 2,000 MG in SODIUM CHLORIDE 0.9% 100 ML IVPB PRN (15:18)
[2018-01-27] MEDS ORDERED: NITROGLYCERIN-D5W PMX 50 MG in DEXTROSE/WATER 1 250ML.BAG IV SCH (15:18)
[2018-01-27] MEDS ORDERED: Phosphorus Replacement Protoco 1 EACH MISC MISCELLANE PRN (15:18)
[2018-01-27] MEDS ORDERED: PHENYLEPHRINE 40 MG in SODIUM CHLORIDE 0.9% 250 ML IV SCH (15:18)
[2018-01-27] MEDS ORDERED: Potassium Replacement Protocol 1 EACH MISC MISCELLANE PRN (15:18)
[2018-01-27] MEDS ORDERED: Magnesium Replacement Protocol 1 EACH MISC MISCELLANE PRN (15:18)
[2018-01-27] MEDS ORDERED: BENZOCAINE/MENTHOL LOZENG 1 EACH LOZENGE MUCOUS MEM PRN (15:18)
[2018-01-27] MEDS ORDERED: ONDANSETRON 4 MG/2 ML VIAL IVP PRN (15:18)
[2018-01-27] MEDS ORDERED: ceFAZolin 3 GM in SODIUM CHLORIDE 0.9% 100 ML IVPB SCH (16:00)
[2018-01-27] MEDS: PROPOFOL 1,000 MG in EMPTY BAG 1 BAG IV SCH ×2 (16:05→18:47)
[2018-01-27 16:19] LABS: Glucose,Whole Blood 118 mg/dL (75-99)
--- NOTE | 2018-01-27 16:31 | P.PN ---
Subjective Progress Note Date: 01/27/18 67-year-old female patient with known history of coronary artery disease and previous OK back in 2013 in addition to left internal carotid artery stenosis approximately 50-79% based on ultrasound in addition to history of smoking which she quit more than 30 years ago. The patient has other comorbidities including hypertension and hyperlipidemia and obesity. The patient came into the hospital because of chest tightness and pain radiating to her jaw. She was also feeling nauseated and she had a bout of emesis. She ruled in for acute OK. The troponin was elevated and the highest was at 15.4. Based on that a cardiac catheterization was done and it showed a 60% stenosis of the left main, 95% stenosis of the right coronary artery, totally occluded circumflex coronary artery, 90% stenosis of the proximal left anterior descending, 60% stenosis in the mid anterior descending. The LV angiogram showed a normal ejection fraction of 60%. The patient was kept on IV heparin. She is currently being evaluated for cardiac bypass surgery. This is being considered yet is currently on hold knowing that the patient has taken Plavix. Follow pulmonary standpoint, the patient may have an underlying COPD although this has not been officially diagnosed. Her FEV1 was measured to be at around 35%. This was a suboptimal effort. She claims that she is able to climb a flight of stairs with some limited difficulties. No cough. No sputum production. No hemoptysis. Pleurisy. No swelling lower extremities. No recurrent pneumonias. No reported history of any obstructive sleep apnea. No asthma during childhood. No previous history of DVT and pulmonary embolism. Chest x- ray shows no evidence of any lung masses or lesions. Pulse ox on room air is 97 %. On the I'm seeing Abril for a follow-up. The patient is ready for bypass surgery tomorrow. She repeated her spirometry and she did much better and her FEV1 essentially normalized. I think the initial one was a suboptimal study. Meanwhile, she remains free of any chest pain. No cough or sputum production. No fever chills or night sweats. No other complaints otherwise for now. For the most part she is ready for coronary artery bypass surgery to be done tomorrow by Dr. Perera. On 01/27/2018 the patient is being seen immediately after her coronary artery bypass surgery. The patient underwent three-vessel bypass. Currently she is postop day #0. She is currently intubated on a mechanical ventilator. I have an assist-control of 18, tidal volume 500 with an FiO2 of 100% and a PEEP of 5. Chest x-ray and blood gases are still pending for now. Meanwhile, the patient is sedated with Diprivan and currently is on 20 mics of the prevent for sedation. She is very symptoms with the mechanical ventilator. Hemodynamically stable. She required some Musa-Synephrine postop currently she is off pressors. Her cardiac index is at 1.9. Pulmonary artery pressures are nonelevated. She is producing adequate amount of urine output. The patient has 2 mediastinal chest tubes, 1 pleural on the right and 1 pleural on the left chest tubes. Output is being also closely monitored. The patient is also paced , DDD, at the rate of 80 and her underlying rhythm is sinus at a low rate probably in the mid 50s. Pacing was performed to augment her cardiac output. No other significant events postop. We'll be awaiting for the blood gases and the chest x-ray we'll proceed with further weaning on the FiO2 and and anticipate weaning and extubation probably within next 6 hours. She is also on insulin drip for blood sugar control. He required a total of 5 units of platelet transfusion intraoperatively. Objective - Vital Signs Vital signs: Vital Signs Temp 97.9 F 01/27/18 06:10 Pulse 77 01/27/18 06:10 Resp 16 01/27/18 06:10 BP 159/83 01/27/18 06:10 Pulse Ox 97 01/27/18 06:10 Intake & Output 01/26/18 01/27/18 01/27/18 18:59 06:59 18:59 Intake Total 1989 950 523 Output Total 1000 1735 Balance 990 950 -1212 Weight 126.1 kg Intake: IV 100 3 Intake, IV Titration 500 500 Amount Heparin Sod,Pork in 0.45% 500 500 NaCl 25,000 unit In 0.45 % NaCl 1 500ml.bag @ 7.75 UNITS/KG/HR 19.99 mls/hr IV .Q24H [facility] Rx#: [id number] Oral 1490 350 Blood Product 520 Platelet Pheresis Acda 520 Unit [id number] Output: Urine 1000 335 Estimated Blood Loss 1400 Other: Voiding Method Toilet # Voids 1 1 - Exam Gen. appearance the patient is sedated, comfortable on a mechanical ventilator. Head is atraumatic normocephalic. Neck the patient has an IJ Cordis with a [place]-Ethan catheter which is in place. Orotracheal gastric tube are both in place.Head exam was generally normal. There was no scleral icterus or corneal arcus. Mucous membranes were moist.Neck was supple and without jugular venous distension, thyromegaly, or carotid bruits. Carotids were easily palpable bilaterally. There was no adenopathy. Lung sounds are diminished in lung bases bilaterally. The patient has a sternum which is currently dry clean and intact. The patient has a right and the left pleural chest tubes and the patient has 2 mediastinal chest tubes. Heart sounds are regular, positive S1-S2 , no cervical murmurs are being appreciated this point in time.Abdominal exam revealed normal bowel sounds. The abdomen was soft, non-tender, and without masses, organomegaly, or appreciable enlargement of the abdominal aorta.Examination of the extremities revealed easily palpable radial, femoral and pedal pulses. There was no cyanosis, clubbing or edema. Skin, all of the surgical wound sites of dry clean and intact. Neurologically the patient is sedated and she is calm and comfortable. She is currently under the effect of Diprivan. - Labs CBC & Chem 7: 01/27/18 05:49 01/27/18 05:49 Labs: Abnormal Lab Results - Last 24 Hours (Table) 01/26/18 01/26/18 01/26/18 Range/Units 11:40 16:41 20:44 RBC (3.80-5.40) m/uL Hgb (11.4-16.0) gm/dL Hct (34.0-46.0) % APTT (22.0-30.0) sec ABG pH (7.35-7.45) ABG pCO2 (35-45) mmHg ABG pO2 (83-108) mmHg ABG Total CO2 (19-24) mmol/L ABG O2 Saturation (94-97) % ABG Hematocrit (34.0-46.0) % ABG Potassium (3.4-4.5) mmol/L ABG Ionized Calcium (4.5-5.3) mg/dL ABG Glucose (75-99) mg/dL ABG Lactic Acid (0.5-1.6) mmol/L Hemoglobin (11.4-16.0) gm/dL Chloride (98-107) mmol/L POC Glucose (mg/dL) 201 H 169 H (75-99) mg/dL AST (14-36) U/L Albumin (3.5-5.0) g/dL Arterial Blood Potassium (3.4-4.5) mmol/L Arterial Blood Glucose (75-99) mg/dL Crossmatch See Detail 01/26/18 01/27/18 01/27/18 Range/Units 23:47 05:49 05:49 RBC 3.33 L (3.80-5.40) m/uL Hgb 10.8 L (11.4-16.0) gm/dL Hct 31.6 L (34.0-46.0) % APTT 38.0 H (22.0-30.0) sec ABG pH (7.35-7.45) ABG pCO2 (35-45) mmHg ABG pO2 (83-108) mmHg ABG Total CO2 (19-24) mmol/L ABG O2 Saturation (94-97) % ABG Hematocrit (34.0-46.0) % ABG Potassium (3.4-4.5) mmol/L ABG Ionized Calcium (4.5-5.3) mg/dL ABG Glucose (75-99) mg/dL ABG Lactic Acid (0.5-1.6) mmol/L Hemoglobin (11.4-16.0) gm/dL Chloride (98-107) mmol/L POC Glucose (mg/dL) 173 H (75-99) mg/dL AST (14-36) U/L Albumin (3.5-5.0) g/dL Arterial Blood Potassium (3.4-4.5) mmol/L Arterial Blood Glucose (75-99) mg/dL Crossmatch 01/27/18 01/27/18 01/27/18 Range/Units 05:49 08:53 10:16 RBC (3.80-5.40) m/uL Hgb (11.4-16.0) gm/dL Hct (34.0-46.0) % APTT (22.0-30.0) sec ABG pH (7.35-7.45) ABG pCO2 33 L (35-45) mmHg ABG pO2 139 H 166 H (83-108) mmHg ABG Total CO2 25 H (19-24) mmol/L ABG O2 Saturation 99.6 H 99.6 H (94-97) % ABG Hematocrit 31 L 29 L (34.0-46.0) % ABG Potassium (3.4-4.5) mmol/L ABG Ionized Calcium (4.5-5.3) mg/dL ABG Glucose 111 H 132 H (75-99) mg/dL ABG Lactic Acid (0.5-1.6) mmol/L Hemoglobin 10.2 L 9.5 L (11.4-16.0) gm/dL Chloride 108 H (98-107) mmol/L POC Glucose (mg/dL) (75-99) mg/dL AST 55 H (14-36) U/L Albumin 3.4 L (3.5-5.0) g/dL Arterial Blood Potassium (3.4-4.5) mmol/L Arterial Blood Glucose 111 H 132 H (75-99) mg/dL Crossmatch 01/27/18 01/27/18 01/27/18 Range/Units 11:51 12:36 13:27 RBC (3.80-5.40) m/uL Hgb (11.4-16.0) gm/dL Hct (34.0-46.0) % APTT (22.0-30.0) sec ABG pH 7.31 L (7.35-7.45) ABG pCO2 46 H (35-45) mmHg ABG pO2 237 H 228 H 368 H (83-108) mmHg ABG Total CO2 25 H 25 H (19-24) mmol/L ABG O2 Saturation 99.9 H 99.8 H 99.9 H (94-97) % ABG Hematocrit 22 L 22 L 21 L (34.0-46.0) % ABG Potassium 4.7 H 4.6 H (3.4-4.5) mmol/L ABG Ionized Calcium 4.3 L 4.4 L 4.4 L (4.5-5.3) mg/dL ABG Glucose 164 H 250 H 241 H (75-99) mg/dL ABG Lactic Acid (0.5-1.6) mmol/L Hemoglobin 7.2 L 7.1 L 6.9 L* (11.4-16.0) gm/dL Chloride (98-107) mmol/L POC Glucose (mg/dL) (75-99) mg/dL AST (14-36) U/L Albumin (3.5-5.0) g/dL Arterial Blood Potassium 4.7 H 4.6 H (3.4-4.5) mmol/L Arterial Blood Glucose 164 H 250 H 241 H (75-99) mg/dL Crossmatch 01/27/18 01/27/18 Range/Units 14:28 16:17 RBC (3.80-5.40) m/uL Hgb (11.4-16.0) gm/dL Hct (34.0-46.0) % APTT (22.0-30.0) sec ABG pH (7.35-7.45) ABG pCO2 (35-45) mmHg ABG pO2 278 H (83-108) mmHg ABG Total CO2 (19-24) mmol/L ABG O2 Saturation 100.0 H (94-97) % ABG Hematocrit 22 L (34.0-46.0) % ABG Potassium (3.4-4.5) mmol/L ABG Ionized Calcium 4.3 L (4.5-5.3) mg/dL ABG Glucose 173 H (75-99) mg/dL ABG Lactic Acid 2.6 H* (0.5-1.6) mmol/L Hemoglobin 7.2 L (11.4-16.0) gm/dL Chloride (98-107) mmol/L POC Glucose (mg/dL) 118 H (75-99) mg/dL AST (14-36) U/L Albumin (3.5-5.0) g/dL Arterial Blood Potassium (3.4-4.5) mmol/L Arterial Blood Glucose 173 H (75-99) mg/dL Crossmatch Microbiology - Last 24 Hours (Table) 01/26/18 07:59 Urine Culture - Final Urine,Clean Catch Strep agalactiae - (group b) 01/26/18 08:35 Nasal Screen MRSA/MSSA (BHARGAVI) - Preliminary Nasal Swab Assessment and Plan Plan: Assessment 1 multivessel coronary artery disease status post acute non-ST segment elevation myocardial infarction, the patient has undergone three-vessel bypass surgery and currently the patient is intubated on a mechanical ventilator in the intensive care unit postop day #0. Awaiting postoperative blood gases and chest x-ray. Hemodynamically stable on no pressors. Sedated with Diprivan and calm and comfortable. The patient is paced at the rate of 80, DDD, underlying rhythm is sinus bradycardia. 2 post thoracotomy mechanical ventilation, and expected outcome following bypass surgery. Anticipate extubation within next 6 hours. Awaiting postoperative chest x-ray and blood gas. 3 COPD, inactive in stable 4 diabetes mellitus, currently on insulin drip for blood sugar control 5 diabetic retinopathy and glaucoma 6 hypertension 7 hyperlipidemia 8 preserved LV function with a normal ejection fraction of 60% 9 left internal carotid artery stenosis estimated to be around 50-79% 10 fibromyalgia 11 acid reflux 12 degenerative arthritis Plan Monitor hemodynamics. Monitor the output from the chest tubes. Monitor urine output. Continue mechanical ventilator and the patient is a currently on an assist-control mode of ventilation at the rate of 18, tidal volume of 500 with an FiO2 of 100% and PEEP of 5. Awaiting blood gases. Awaiting chest x-ray. Keep the patient on Diprivan for now. The patient is well sedated and she is synchronous with the mechanical ventilator. The patient is on insulin drip. Monitor cardiac output and index. Current index is at 1.9. We'll continue to follow. Anticipate extubation within next 6 hours. The patient's rhythm is paced at the rate of 80, DDD
[2018-01-27 16:36] LABS: Basophils % (A) 0 %; Eosinophils # (A) 0.1 k/uL (0-0.7); Eosinophils % (A) 1 %; HCT 23.1 % (34.0-46.0); Lymphocytes # (A) 0.8 k/uL (1.0-4.8); Lymphocytes % (A) 10 %; MCH 32.3 pg (25.0-35.0); MCV 94.9 fL (80.0-100.0); Mean Platelet Volume 8.2; Monocytes # (A) 0.3 k/uL (0-1.0); Monocytes % (A) 4 %; Neutrophils # (A) 6.6 k/uL (1.3-7.7); Neutrophils % (A) 84 %; Platelet Count 191 k/uL (150-450); RBC 2.43 m/uL (3.80-5.40); RDW 13.3 % (11.5-15.5); WBC 7.8 k/uL (3.8-10.6)
--- NOTE | 2018-01-27 16:37 | XR ---
EXAMINATION TYPE: XR chest 1V portable DATE OF EXAM: 01/27/2018 CLINICAL HISTORY: Post open cardiac surgery TECHNIQUE: Single AP portable supine view of the chest is obtained. COMPARISON: Chest x-ray from 5 days earlier FINDINGS: There is new endotracheal tube at aortic knob level, approximately 4 to 5 cm above tomas. There is new orogastric tube with tip not well visualized. There are bilateral chest tubes and media stinal drainage catheter. There is new right internal jugular [place]-Ethan catheter with tip in level of pulmonary outflow tract. Overlying sternal wires and mediastinal clips are present. There is cardiomegaly with left midlung li near atelectasis. No sizable pneumothorax is evident. Osseous structures are intact. IMPRESSION: 1. Tubes and lines as detailed above, tip of orogastric tube not well visualized otherwise felt [employer]. 2. Cardiomegaly with suspected mild central vascular congestion and left mid lung and basilar atelect asis.
[2018-01-27 16:41] LABS: INR 1.2 (<1.2); Partial Thromboplastin Time 33.6 sec (22.0-30.0); Prothrombin Time 11.3 sec (9.0-12.0)
[2018-01-27] MEDS: CLEVIDIPINE BUTYRATE 25 MG in EMPTY BAG 1 BAG IV SCH ×2 (16:41→21:55)
[2018-01-27 16:47] LABS: HGB 7.8 gm/dL (11.4-16.0); Ionized Calcium 4.8 mg/dL (4.5-5.3)
[2018-01-27 16:49] LABS: ABG Base Excess 0.6 mmol/L; ABG HCO3 25 mmol/L (21-25); ABG PCO2 38 mmHg (35-45); ABG PH 7.43 (7.35-7.45); ABG PO2 >400 mmHg (83-108); ABG TCO2 26 mmol/L (19-24)
[2018-01-27] MEDS ORDERED: hydrALAZINE HCL 20 MG/ML 1 ML VIAL ONE (16:49)
[2018-01-27 16:56] LABS: ALT 36 U/L (9-52); AST 62 U/L (14-36); Albumin 2.2 g/dL (3.5-5.0); Alkaline Phosphatase 38 U/L (38-126); Anion Gap 8 mmol/L; Blood Urea Nitrogen 10 mg/dL (7-17); Calcium 7.9 mg/dL (8.4-10.2); Carbon Dioxide 25 mmol/L (22-30); Chloride 109 mmol/L (98-107); Glucose 107 mg/dL (74-99); Magnesium 2.3 mg/dL (1.6-2.3); Potassium 4.2 mmol/L (3.5-5.1); Sodium 142 mmol/L (137-145); Total Bilirubin 0.5 mg/dL (0.2-1.3); Total Protein 4.6 g/dL (6.3-8.2)
[2018-01-27] MEDS: ALBUMIN HUMAN 5% 250 ML in EMPTY BAG 1 BAG IVPB PRN ×2 (16:56→17:56)
[2018-01-27] MEDS: LACTATED RINGERS 1,000 ML IV SCH (16:58)
[2018-01-27 17:17] LABS: Glucose,Whole Blood 121 mg/dL (75-99)
[2018-01-27 18:22] LABS: Glucose,Whole Blood 155 mg/dL (75-99)
[2018-01-27 19:03] LABS: Glucose,Whole Blood 149 mg/dL (75-99)
[2018-01-27] MEDS: ACETAMINOPHEN IV (For NPO) 1,000 MG in EMPTY BAG 1 BAG IVPB SCH (19:06)
[2018-01-27 19:08] LABS: Basophils % (A) 0 %; Eosinophils % (A) 0 %; HCT 22.9 % (34.0-46.0); HGB 7.7 gm/dL (11.4-16.0); Lymphocytes # (A) 0.5 k/uL (1.0-4.8); Lymphocytes % (A) 7 %; MCH 32.1 pg (25.0-35.0); MCHC 33.6 g/dL (31.0-37.0); MCV 95.4 fL (80.0-100.0); Mean Platelet Volume 8.5; Monocytes # (A) 0.3 k/uL (0-1.0); Monocytes % (A) 3 %; Neutrophils % (A) 89 %; Platelet Count 158 k/uL (150-450); RDW 13.5 % (11.5-15.5); WBC 7.8 k/uL (3.8-10.6)
--- NOTE | 2018-01-27 19:40 | OP ---
OPERATIVE REPORT DATE OF SURGERY: 01/27/2018 PREOPERATIVE DIAGNOSIS: Coronary artery disease. POSTOPERATIVE DIAGNOSIS: Coronary artery disease. PROCEDURE: 1. Coronary artery bypass grafting x3 vessels (left internal mammary artery to left anterior descending artery, saphenous vein graft to posterior descending artery, saphenous vein graft to distal obtuse marginal artery). 2. Endoscopic vein harvest, left greater saphenous vein. 3. Epiaortic ultrasound. 4. Transesophageal echocardiogram. 5. Measurement of graft flow using Medistim device. 6. Lysis of adhesions. SURGEON: Robert Worley MD. ASSISTANTS: 1. Malena JO. 2. Horacio JO. ANESTHESIA: General. SPECIMENS: None. COMPLICATIONS: None. INDICATION: The patient is a 67-year-old female with history of multiple medical problems, including coronary artery disease, status post myocardial infarction, hypertension, hyperlipidemia, morbid obesity, fibromyalgia, carotid artery stenosis, history of tobacco use, diabetes mellitus, and history of renal failure, which has since resolved. She presented to the hospital with chest pain which radiated to her jaw. Cardiac catheterization was performed. She ruled in for a [id number] myocardial infarction with elevated troponins. Cardiac catheterization revealed multi-vessel coronary artery disease, including a high-grade lesion in the proximal LAD. Coronary artery bypass was recommended. The risks, benefits and alternatives of the procedure were discussed with the patient. All of her questions were answered. Her consent was obtained. FINDINGS: There were significant adhesions noted within the pericardium. The left internal mammary artery had a good, brisk flow. Saphenous vein was good conduit. All coronary arteries had significant diffuse calcific disease. The LAD measured 1.3 mm. The diagonal artery was diffusely calcified and not amenable to bypass. The OM1 was diffusely calcified and small in diameter, and not amenable to bypass. The distal one measured 1.0 mm and was a small target. The distal right coronary artery was heavily calcified throughout its course. The PDA measured 1.3 mm. PROCEDURE IN DETAIL: The patient was taken to the operating room and placed supine on the operating table. After induction of general anesthesia, she was prepped and draped in the usual sterile fashion. Preoperative transesophageal echocardiogram revealed a preserved ejection fraction with trace to mild mitral regurgitation. A median sternotomy was performed. The patient had several inches of fat contained in her skin and her sternum, given her history of morbid obesity. The left internal mammary artery was harvested in standard fashion, taking care to clip all branches. Intravenous heparin was administered and the vessel was transected distally, revealing brisk flow. This was a good conduit. Next, greater saphenous vein was harvested from the left lower extremity using standard endoscopic technique. This proved quite challenging, given the amount of fat in the patient's leg. All branches were tied. The vein was a good conduit. We began by opening the pericardium. It was quickly evident that there were multiple adhesions between the heart and the pericardium, as if this were a redo procedure. Careful meticulous dissection was carried out to sharply lyse all these adhesions. The right atrium and aorta were cleared off first. The ascending aorta was palpated. There was no evidence of calcific disease. Epiaortic ultrasound was then performed on the ascending aorta. Again no calcific disease was noted. There were no plaques and minimal atheromatous disease. An arterial cannula was placed in the distal ascending aorta. A venous catheter was placed in the right atrial appendage directed into the IVC. An antegrade catheter was placed in the ascending aorta. A retrograde catheter was placed and directed in the coronary sinus. The patient was then placed on cardiopulmonary bypass with good decompression of the heart. The remainder of the lysis of adhesions was not performed, as the heart was emptied. Finally the heart was freed up circumferentially. The aortic cross-clamp was applied. Cold blood potassium cardioplegia was delivered in both antegrade and retrograde fashion to achieve arrest of the heart. Of note, cardioplegia was delivered every 15 to 20 minutes while the patient remained under cross-clamp. We began by inspecting the inferior wall. The distal right coronary artery was identified. It was palpated and heavily calcified throughout its course. I could not find a soft spot for bypass. The PDA was then identified. It did contain a spot amenable for bypass; however, it also contained diffuse calcific disease. A small arteriotomy was created. This vessel accepted a 1 mm probe. Using the saphenous vein in a reverse fashion, an end-to-side anastomosis was created. This was performed using a running 7-0 Prolene suture. The graft was hemostatic and had good flow. Next the lateral wall was inspected. The OM1 was identified. It was extremely small in diameter and it contained diffuse disease. It was not amenable to bypass. Next, the distal obtuse marginal artery was identified. Proximally it contained heavily calcified disease, but a soft spot for bypass was noted in its mid to distal section. The vessel itself was quite small, but I felt that it was amenable for bypass. It accepted a 1 mm probe. An end-to-side anastomosis was created. This was performed running 7-0 Prolene suture. The graft was hemostatic and had good flow. Finally, the anterior wall was identified. The diagonal artery and LAD were dissected free. The diagonal artery appeared to be small and heavily calcified. The LAD was calcified throughout its entire course. It was difficult to find a soft spot for bypass. An arteriotomy was created in its mid to distal third section. This vessel accepted a 1 mm probe. Using the left internal mammary artery, an end-to-side anastomosis was created. This was performed using running 8-0 Prolene suture. The graft was hemostatic. The mammary pedicle was then tacked down to the anterior surface of the heart. Attention was then turned to the proximal anastomoses. These were both performed in an end-to-side fashion to the ascending aorta using running 6-0 Prolene sutures. The graft to the distal obtuse marginal artery came around the patient's right side and was plugged in on the side of the aorta. The graft to the PDA also came around the the patient's right side and was plugged in more inferiorly and anteriorly. One liter of warm blood was delivered in retrograde fashion. Lidocaine and magnesium were administered as well. The aortic cross-clamp was removed. Temporary atrial and ventricular pacing wires were placed and brought through the skin. The retrograde catheter was removed. The grafts were de-aired in the standard fashion. Distal anastomoses were inspected and appeared to be hemostatic. The patient was then weaned off cardiopulmonary bypass. She without difficulty. Follow-up transesophageal echocardiogram confirmed good left ventricular ejection fraction with good movement of all clements. There was no change in her mitral regurgitation. Protamine was administered. There were no adverse reactions. The remaining cannulas were then removed without difficulty. Reinforcement sutures were placed as needed. The mediastinum was then copiously irrigated with warm saline solution. Hemostasis was assured. I did use the Medistim device to test graft flows. Flow in the [place] to LAD was greater than 30 mm/second and the was about 2.2. Flow through the graft to the PDA also had a low PI of 2.0 and a flow of approximately 39 mL/second. Mediastinum was then copiously irrigated with warm saline solution. Soft tissue was reapproximated over the ascending aorta as well as over the majority of the heart. Straight 32-Libyan chest tubes were placed and directed into both pleural spaces. Two additional 32- [place] chest tubes were placed directly in the mediastinum. These were all secured to the skin using sutures. The patient was somewhat oozy at the completion of the case. I believe this was a combination of her previous Plavix treatment as well as diffuse bleeding from lysis of adhesions. After some time, the bleeding appeared to be under control. Due to the patient's morbid obesity, I chose to reapproximate the sternum using the cable system. These were placed in figure-of-8 fashion. The sternum had a good closure at the completion of this procedure. The remainder of the wound was then closed in multiple layers, including interrupted sutures. A sterile dressing was applied. The patient appeared to have tolerated the procedure well. There were no immediate complications. She returned to the ICU in critical but stable condition. VALERIE / INGRIS: [id number] /
[2018-01-27] MEDS ORDERED: NALOXONE 0.4 MG/ML 1 ML VIAL IV PRN (19:54)
[2018-01-27 20:10] LABS: Glucose,Whole Blood 146 mg/dL (75-99)
[2018-01-27] MEDS: INSULIN REGULAR 100 UNIT in SODIUM CHLORIDE 0.9% 100 ML IV SCH (20:12)
[2018-01-27] MEDS: MUPIROCIN 2% OINT 22 GM TUBE NASAL SCH (20:17)
[2018-01-27] MEDS ORDERED: MONTELUKAST 10 MG TAB PO SCH (21:00)
[2018-01-27 21:23] LABS: ABG Base Excess -2.3 mmol/L; ABG HCO3 23 mmol/L (21-25); ABG Oxygen Saturation 98.4 % (94-97); ABG PCO2 43 mmHg (35-45); ABG PH 7.35 (7.35-7.45); ABG PO2 110 mmHg (83-108); ABG TCO2 25 mmol/L (19-24); Glucose,Whole Blood 170 mg/dL (75-99)
[2018-01-27] MEDS: IPRATROPIUM-ALBUTEROL 3 ML NEB INHALATION PRN (21:40)
[2018-01-27 22:04] LABS: Glucose,Whole Blood 166 mg/dL (75-99)
[2018-01-27 23:00] LABS: Basophils % (A) 0 %; Eosinophils % (A) 0 %; HCT 23.2 % (34.0-46.0); HGB 7.9 gm/dL (11.4-16.0); Lymphocytes # (A) 0.4 k/uL (1.0-4.8); Lymphocytes % (A) 4 %; MCH 32.4 pg (25.0-35.0); MCHC 34.2 g/dL (31.0-37.0); MCV 94.6 fL (80.0-100.0); Mean Platelet Volume 8.9; Monocytes # (A) 0.3 k/uL (0-1.0); Monocytes % (A) 4 %; Neutrophils # (A) 7.9 k/uL (1.3-7.7); Neutrophils % (A) 91 %; Platelet Count 169 k/uL (150-450); RBC 2.45 m/uL (3.80-5.40); RDW 13.5 % (11.5-15.5); WBC 8.7 k/uL (3.8-10.6)
[2018-01-27 23:07] LABS: Glucose,Whole Blood 145 mg/dL (75-99)
[2018-01-28 00:13] LABS: Glucose,Whole Blood 164 mg/dL (75-99)
[2018-01-28] MEDS: CLEVIDIPINE BUTYRATE 25 MG in EMPTY BAG 1 BAG IV SCH (00:25)
[2018-01-28] MEDS: HEPARIN SODIUM,PORCINE 5,000 UNIT/ML 1 ML VIAL SQ SCH ×3 (01:04→15:12)
[2018-01-28 01:06] LABS: Glucose,Whole Blood 152 mg/dL (75-99)
[2018-01-28] MEDS: ACETAMINOPHEN IV (For NPO) 1,000 MG in EMPTY BAG 1 BAG IVPB SCH ×4 (01:07→17:09)
[2018-01-28 02:00] LABS: Glucose,Whole Blood 138 mg/dL (75-99)
[2018-01-28 03:16] LABS: Glucose,Whole Blood 135 mg/dL (75-99)
[2018-01-28] MEDS: IPRATROPIUM-ALBUTEROL 3 ML NEB INHALATION SCH ×3 (04:12→19:17)
[2018-01-28 04:38] LABS: Basophils % (A) 0 %; Eosinophils % (A) 0 %; HCT 22.4 % (34.0-46.0); HGB 7.5 gm/dL (11.4-16.0); Lymphocytes # (A) 0.6 k/uL (1.0-4.8); Lymphocytes % (A) 7 %; MCH 31.8 pg (25.0-35.0); MCHC 33.4 g/dL (31.0-37.0); MCV 95.2 fL (80.0-100.0); Mean Platelet Volume 7.5; Monocytes # (A) 0.3 k/uL (0-1.0); Monocytes % (A) 3 %; Neutrophils # (A) 7.4 k/uL (1.3-7.7); Neutrophils % (A) 89 %; Platelet Count 192 k/uL (150-450); RBC 2.36 m/uL (3.80-5.40); RDW 13.7 % (11.5-15.5); WBC 8.4 k/uL (3.8-10.6)
[2018-01-28 04:43] LABS: Ionized Calcium 4.9 mg/dL (4.5-5.3)
[2018-01-28 04:47] LABS: INR 1.1 (<1.2); Partial Thromboplastin Time 26.5 sec (22.0-30.0); Prothrombin Time 10.6 sec (9.0-12.0)
[2018-01-28 04:52] LABS: ALT 31 U/L (9-52); AST 54 U/L (14-36); Albumin 2.6 g/dL (3.5-5.0); Alkaline Phosphatase 41 U/L (38-126); Anion Gap 9 mmol/L; Blood Urea Nitrogen 10 mg/dL (7-17); Calcium 8.3 mg/dL (8.4-10.2); Carbon Dioxide 25 mmol/L (22-30); Chloride 108 mmol/L (98-107); Glucose 117 mg/dL (74-99); Magnesium 2.2 mg/dL (1.6-2.3); Phosphorus 3.7 mg/dL (2.5-4.5); Potassium 3.9 mmol/L (3.5-5.1); Sodium 142 mmol/L (137-145); Total Bilirubin 0.4 mg/dL (0.2-1.3)
[2018-01-28 05:04] LABS: Glucose,Whole Blood 124 mg/dL (75-99)
[2018-01-28 06:13] LABS: Glucose,Whole Blood 151 mg/dL (75-99)
--- NOTE | 2018-01-28 06:58 | XR ---
EXAMINATION TYPE: XR chest 1V DATE OF EXAM: 01/28/2018 HISTORY: Post-op CABG. REFERENCE: Previous study dated 01/27/2018. FINDINGS: There has been a midline sternotomy. The patient has been extubated. The patient is NG tube is been removed. Bilateral pleural drains remain in place. A Marbury-Ethan catheter remains in place the right internal jugular approach. Its tip is in the right interlobar artery. There continues be left basilar airspace disease. There are small, bilateral effusions. There is vasc ular congestion and subtle interstitial change. IMPRESSION: WORSENING CHANGES OF CONGESTIVE HEART FAILURE.
[2018-01-28] MEDS ORDERED: POTASSIUM CHLORIDE ER 20 MEQ TAB.ER PO SCH (07:00)
[2018-01-28 07:05] LABS: Glucose,Whole Blood 128 mg/dL (75-99)
--- NOTE | 2018-01-28 07:20 | P.PN ---
Subjective Progress Note Date: 01/28/18 Principal diagnosis: Severe coronary artery disease including left main stenosis of 60%, NSTEMI. Previous medical history of coronary artery disease with previous myocardial infarction 2013, hypertension, hyperlipidemia, fibromyalgia, depression, left carotid stenosis greater than 70%, previous tobacco dependence with the current FEV1 of 104% predicted, obesity with history of lap band surgery, renal failure with 2 treatments of hemodialysis, GERD, and diabetes mellitus type tube with current hemoglobin A1c of 7.1%. POD #1 urgent coronary artery bypass grafting 3 vessels, left internal mammary artery to left anterior descending artery, reverse saphenous vein graft to the posterior descending artery, reverse saphenous vein graft to the distal obtuse marginal artery. Endoscopic vein harvesting of the left greater saphenous vein. Epi-aortic ultrasound. Intraoperative transesophageal echocardiogram. Graft flow measurement using the trip.me system. Lysis of adhesions. Postoperative acute blood loss anemia, and expected outcome of surgery given cardiopulmonary bypass. Patient's currently sitting up in a recliner in no acute distress. Was successfully extubated last night at any 21:32. States sternal pain is controlled but her fibromyalgia is acting up. No other complaints at this time. Stable hemodynamics currently. Objective - Vital Signs Vital signs: Vital Signs Temp 98.4 F 01/28/18 04:00 Pulse 75 01/28/18 07:00 Resp 5 L 01/28/18 07:00 BP 111/35 01/27/18 23:30 Pulse Ox 100 01/28/18 07:00 Intake & Output 01/27/18 01/28/18 01/28/18 18:59 06:59 18:59 Intake Total 5743.430 7322.765 62.225 Output Total 2270 1169 60 Balance -994.759 -97.235 2.225 Weight 136.1 kg Intake: IV 130 708 59 LR 100 600 50 NS pressure bag 27 108 9 Intake, IV Titration 625.241 363.765 3.225 Amount ACETAMINOPHEN IV (For NPO 100 ) 1,000 mg In Empty Bag 1 bag @ 400 mls/hr IVPB Q6HR [facility] Rx#:[id number] Albumin Human 5% 250 ml 500 In Empty Bag 1 bag @ 250 mls/hr IVPB Q1HR PRN Rx#: [id number] Clevidipine Butyrate 25 5.434 115.866 mg In Empty Bag 1 bag @ 1 MG/HR 2 mls/hr IV .Q24H [facility] Rx#:[id number] Insulin Regular 100 unit 37.834 3.225 In Sodium Chloride 0.9% 100 ml @ Per Protocol IV .Q0M [facility] Rx#:[id number] Insulin Regular 100 unit 1.367 In Sodium Chloride 0.9% 100 ml @ Titrate IV .Q0M PRN Rx#:[id number] Propofol 1,000 mg In 69.807 8.698 Empty Bag 1 bag @ Titrate IV .Q0M [facility] Rx#: [id number] ceFAZolin 3 gm In Sodium 100 Chloride 0.9% 100 ml @ 100 mls/hr IVPB Q8HR [place] Rx#:[id number] ceFAZolin 3 gm In Sodium 50 Chloride 0.9% 50 ml @ 50 mls/hr IVPB Q8HR [facility] Rx#: [id number] Blood Product 520 Platelet Pheresis Acda 520 Unit [id number] Output: Chest Tube Drainage 155 244 20 Chest Tube Bilateral 90 127 0 Mediastinal Pleural Catheter 65 117 20 Bilateral Drainage 80 Left Calf 80 Urine 715 845 40 Estimated Blood Loss 1400 Other: Voiding Method Indwelling Catheter Indwelling Catheter # Voids 1 ABP, PAP, CO, CI - Last Documented Arterial Blood Pressure 135/41 Pulmonary Artery Pressure 20/8 Cardiac Output 8.9 Cardiac Index 3.8 - Constitutional General appearance: Present: cooperative, no acute distress, obese - Respiratory Details: Lungs sounds diminished bilaterally. Respirations even, nonlabored. Currently on 4 L nasal cannula with oxygen saturation 100%. Able to achieve 750-1000 mL on her incentive spirometry. Mediastinal chest tubes to continuous wall suction , 70 mL serosanguineous drainage overnight, 150 mL since surgery, positive air leak. Pleural chest tubes to continuous wall suction, 60 mL serosanguineous drainage overnight, 210 mL since surgery, no air leak present. - Cardiovascular Details: S1, S2 present. Regular rate and rhythm, sinus rhythm on telemetry. Positive rub. A/P epicardial pacemaker wires present, grounded. Sternum stable. Palpable peripheral pulses bilaterally. Generalized edema present. No calf pain or tenderness noted. Heart hugger in place with patient unable to demonstrate appropriate use at this time. And I embolism stockings, SCDs present. Right radial arterial line, right internal jugular [employer] present. Current CO/CI 8.9/3.8 on no inotropes. - Gastrointestinal Gastrointestinal Comment(s): Abdomen soft, nontender, nondistended, obese. Hypoactive bowel sounds present. Tolerating clear liquids. No flatus, no BM yet. - Genitourinary Genitourinary Comment(s): Mark present draining clear, yellow urine. Output 45-60 mL/h overnight. - Integumentary Integumentary Comment(s): Skin is warm dry with evidence of good perfusion. Anterior chest incision well approximated and covered with dry intact dressing. Left lower extremity EVH site well approximated, NAREN present with minimal serosanguineous drainage. - Neurologic Neurologic: Present: CNII-XII intact - Musculoskeletal Musculoskeletal: Present: generalized weakness, strength equal bilaterally - Psychiatric Psychiatric: Present: A&O x's 3, appropriate affect, intact judgment & insight - Allied health notes Allied health notes reviewed: nursing - Labs CBC & Chem 7: 01/28/18 04:30 01/28/18 04:30 Labs: Abnormal Lab Results - Last 24 Hours (Table) 01/26/18 01/27/18 01/27/18 Range/Units 11:40 08:53 10:16 RBC (3.80-5.40) m/uL Hgb (11.4-16.0) gm/dL Hct (34.0-46.0) % Neutrophils # (1.3-7.7) k/uL Lymphocytes # (1.0-4.8) k/uL INR (<1.2) APTT (22.0-30.0) sec ABG pH (7.35-7.45) ABG pCO2 33 L (35-45) mmHg ABG pO2 139 H 166 H (83-108) mmHg ABG Total CO2 25 H (19-24) mmol/L ABG O2 Saturation 99.6 H 99.6 H (94-97) % ABG Hematocrit 31 L 29 L (34.0-46.0) % ABG Potassium (3.4-4.5) mmol/L ABG Ionized Calcium (4.5-5.3) mg/dL ABG Glucose 111 H 132 H (75-99) mg/dL ABG Lactic Acid (0.5-1.6) mmol/L Hemoglobin 10.2 L 9.5 L (11.4-16.0) gm/dL Chloride (98-107) mmol/L Glucose (74-99) mg/dL POC Glucose (mg/dL) (75-99) mg/dL Calcium (8.4-10.2) mg/dL AST (14-36) U/L Total Protein (6.3-8.2) g/dL Albumin (3.5-5.0) g/dL Arterial Blood Potassium (3.4-4.5) mmol/L Arterial Blood Glucose 111 H 132 H (75-99) mg/dL Crossmatch See Detail 01/27/18 01/27/18 01/27/18 Range/Units 11:51 12:36 13:27 RBC (3.80-5.40) m/uL Hgb (11.4-16.0) gm/dL Hct (34.0-46.0) % Neutrophils # (1.3-7.7) k/uL Lymphocytes # (1.0-4.8) k/uL INR (<1.2) APTT (22.0-30.0) sec ABG pH 7.31 L (7.35-7.45) ABG pCO2 46 H (35-45) mmHg ABG pO2 237 H 228 H 368 H (83-108) mmHg ABG Total CO2 25 H 25 H (19-24) mmol/L ABG O2 Saturation 99.9 H 99.8 H 99.9 H (94-97) % ABG Hematocrit 22 L 22 L 21 L (34.0-46.0) % ABG Potassium 4.7 H 4.6 H (3.4-4.5) mmol/L ABG Ionized Calcium 4.3 L 4.4 L 4.4 L (4.5-5.3) mg/dL ABG Glucose 164 H 250 H 241 H (75-99) mg/dL ABG Lactic Acid (0.5-1.6) mmol/L Hemoglobin 7.2 L 7.1 L 6.9 L* (11.4-16.0) gm/dL Chloride (98-107) mmol/L Glucose (74-99) mg/dL POC Glucose (mg/dL) (75-99) mg/dL Calcium (8.4-10.2) mg/dL AST (14-36) U/L Total Protein (6.3-8.2) g/dL Albumin (3.5-5.0) g/dL Arterial Blood Potassium 4.7 H 4.6 H (3.4-4.5) mmol/L Arterial Blood Glucose 164 H 250 H 241 H (75-99) mg/dL Crossmatch 01/27/18 01/27/18 01/27/18 Range/Units 14:28 16:17 16:20 RBC 2.43 L (3.80-5.40) m/uL Hgb 7.8 L D (11.4-16.0) gm/dL Hct 23.1 L (34.0-46.0) % Neutrophils # (1.3-7.7) k/uL Lymphocytes # 0.8 L (1.0-4.8) k/uL INR (<1.2) APTT (22.0-30.0) sec ABG pH (7.35-7.45) ABG pCO2 (35-45) mmHg ABG pO2 278 H (83-108) mmHg ABG Total CO2 (19-24) mmol/L ABG O2 Saturation 100.0 H (94-97) % ABG Hematocrit 22 L (34.0-46.0) % ABG Potassium (3.4-4.5) mmol/L ABG Ionized Calcium 4.3 L (4.5-5.3) mg/dL ABG Glucose 173 H (75-99) mg/dL ABG Lactic Acid 2.6 H* (0.5-1.6) mmol/L Hemoglobin 7.2 L (11.4-16.0) gm/dL Chloride (98-107) mmol/L Glucose (74-99) mg/dL POC Glucose (mg/dL) 118 H (75-99) mg/dL Calcium (8.4-10.2) mg/dL AST (14-36) U/L Total Protein (6.3-8.2) g/dL Albumin (3.5-5.0) g/dL Arterial Blood Potassium (3.4-4.5) mmol/L Arterial Blood Glucose 173 H (75-99) mg/dL Crossmatch 01/27/18 01/27/18 01/27/18 Range/Units 16:20 16:20 16:47 RBC (3.80-5.40) m/uL Hgb (11.4-16.0) gm/dL Hct (34.0-46.0) % Neutrophils # (1.3-7.7) k/uL Lymphocytes # (1.0-4.8) k/uL INR 1.2 H (<1.2) APTT 33.6 H (22.0-30.0) sec ABG pH (7.35-7.45) ABG pCO2 (35-45) mmHg ABG pO2 >400 H (83-108) mmHg ABG Total CO2 26 H (19-24) mmol/L ABG O2 Saturation 100.0 H (94-97) % ABG Hematocrit (34.0-46.0) % ABG Potassium (3.4-4.5) mmol/L ABG Ionized Calcium (4.5-5.3) mg/dL ABG Glucose (75-99) mg/dL ABG Lactic Acid (0.5-1.6) mmol/L Hemoglobin (11.4-16.0) gm/dL Chloride 109 H (98-107) mmol/L Glucose 107 H (74-99) mg/dL POC Glucose (mg/dL) (75-99) mg/dL Calcium 7.9 L (8.4-10.2) mg/dL AST 62 H (14-36) U/L Total Protein 4.6 L (6.3-8.2) g/dL Albumin 2.2 L (3.5-5.0) g/dL Arterial Blood Potassium (3.4-4.5) mmol/L Arterial Blood Glucose (75-99) mg/dL Crossmatch 01/27/18 01/27/18 01/27/18 Range/Units 17:15 18:20 19:00 RBC 2.40 L (3.80-5.40) m/uL Hgb 7.7 L (11.4-16.0) gm/dL Hct 22.9 L (34.0-46.0) % Neutrophils # (1.3-7.7) k/uL Lymphocytes # 0.5 L (1.0-4.8) k/uL INR (<1.2) APTT (22.0-30.0) sec ABG pH (7.35-7.45) ABG pCO2 (35-45) mmHg ABG pO2 (83-108) mmHg ABG Total CO2 (19-24) mmol/L ABG O2 Saturation (94-97) % ABG Hematocrit (34.0-46.0) % ABG Potassium (3.4-4.5) mmol/L ABG Ionized Calcium (4.5-5.3) mg/dL ABG Glucose (75-99) mg/dL ABG Lactic Acid (0.5-1.6) mmol/L Hemoglobin (11.4-16.0) gm/dL Chloride (98-107) mmol/L Glucose (74-99) mg/dL POC Glucose (mg/dL) 121 H 155 H (75-99) mg/dL Calcium (8.4-10.2) mg/dL AST (14-36) U/L Total Protein (6.3-8.2) g/dL Albumin (3.5-5.0) g/dL Arterial Blood Potassium (3.4-4.5) mmol/L Arterial Blood Glucose (75-99) mg/dL Crossmatch 01/27/18 01/27/18 01/27/18 Range/Units 19:02 19:51 21:20 RBC (3.80-5.40) m/uL Hgb (11.4-16.0) gm/dL Hct (34.0-46.0) % Neutrophils # (1.3-7.7) k/uL Lymphocytes # (1.0-4.8) k/uL INR (<1.2) APTT (22.0-30.0) sec ABG pH (7.35-7.45) ABG pCO2 (35-45) mmHg ABG pO2 110 H (83-108) mmHg ABG Total CO2 25 H (19-24) mmol/L ABG O2 Saturation 98.4 H (94-97) % ABG Hematocrit (34.0-46.0) % ABG Potassium (3.4-4.5) mmol/L ABG Ionized Calcium (4.5-5.3) mg/dL ABG Glucose (75-99) mg/dL ABG Lactic Acid (0.5-1.6) mmol/L Hemoglobin (11.4-16.0) gm/dL Chloride (98-107) mmol/L Glucose (74-99) mg/dL POC Glucose (mg/dL) 149 H 146 H (75-99) mg/dL Calcium (8.4-10.2) mg/dL AST (14-36) U/L Total Protein (6.3-8.2) g/dL Albumin (3.5-5.0) g/dL Arterial Blood Potassium (3.4-4.5) mmol/L Arterial Blood Glucose (75-99) mg/dL Crossmatch 01/27/18 01/27/18 01/27/18 Range/Units 21:20 22:01 22:53 RBC 2.45 L (3.80-5.40) m/uL Hgb 7.9 L (11.4-16.0) gm/dL Hct 23.2 L (34.0-46.0) % Neutrophils # 7.9 H (1.3-7.7) k/uL Lymphocytes # 0.4 L (1.0-4.8) k/uL INR (<1.2) APTT (22.0-30.0) sec ABG pH (7.35-7.45) ABG pCO2 (35-45) mmHg ABG pO2 (83-108) mmHg ABG Total CO2 (19-24) mmol/L ABG O2 Saturation (94-97) % ABG Hematocrit (34.0-46.0) % ABG Potassium (3.4-4.5) mmol/L ABG Ionized Calcium (4.5-5.3) mg/dL ABG Glucose (75-99) mg/dL ABG Lactic Acid (0.5-1.6) mmol/L Hemoglobin (11.4-16.0) gm/dL Chloride (98-107) mmol/L Glucose (74-99) mg/dL POC Glucose (mg/dL) 170 H 166 H (75-99) mg/dL Calcium (8.4-10.2) mg/dL AST (14-36) U/L Total Protein (6.3-8.2) g/dL Albumin (3.5-5.0) g/dL Arterial Blood Potassium (3.4-4.5) mmol/L Arterial Blood Glucose (75-99) mg/dL Crossmatch 01/27/18 01/28/18 01/28/18 Range/Units 23:04 00:12 01:01 RBC (3.80-5.40) m/uL Hgb (11.4-16.0) gm/dL Hct (34.0-46.0) % Neutrophils # (1.3-7.7) k/uL Lymphocytes # (1.0-4.8) k/uL INR (<1.2) APTT (22.0-30.0) sec ABG pH (7.35-7.45) ABG pCO2 (35-45) mmHg ABG pO2 (83-108) mmHg ABG Total CO2 (19-24) mmol/L ABG O2 Saturation (94-97) % ABG Hematocrit (34.0-46.0) % ABG Potassium (3.4-4.5) mmol/L ABG Ionized Calcium (4.5-5.3) mg/dL ABG Glucose (75-99) mg/dL ABG Lactic Acid (0.5-1.6) mmol/L Hemoglobin (11.4-16.0) gm/dL Chloride (98-107) mmol/L Glucose (74-99) mg/dL POC Glucose (mg/dL) 145 H 164 H 152 H (75-99) mg/dL Calcium (8.4-10.2) mg/dL AST (14-36) U/L Total Protein (6.3-8.2) g/dL Albumin (3.5-5.0) g/dL Arterial Blood Potassium (3.4-4.5) mmol/L Arterial Blood Glucose (75-99) mg/dL Crossmatch 01/28/18 01/28/18 01/28/18 Range/Units 01:58 03:14 04:23 RBC (3.80-5.40) m/uL Hgb (11.4-16.0) gm/dL Hct (34.0-46.0) % Neutrophils # (1.3-7.7) k/uL Lymphocytes # (1.0-4.8) k/uL INR (<1.2) APTT (22.0-30.0) sec ABG pH (7.35-7.45) ABG pCO2 (35-45) mmHg ABG pO2 (83-108) mmHg ABG Total CO2 (19-24) mmol/L ABG O2 Saturation (94-97) % ABG Hematocrit (34.0-46.0) % ABG Potassium (3.4-4.5) mmol/L ABG Ionized Calcium (4.5-5.3) mg/dL ABG Glucose (75-99) mg/dL ABG Lactic Acid (0.5-1.6) mmol/L Hemoglobin (11.4-16.0) gm/dL Chloride (98-107) mmol/L Glucose (74-99) mg/dL POC Glucose (mg/dL) 138 H 135 H 124 H (75-99) mg/dL Calcium (8.4-10.2) mg/dL AST (14-36) U/L Total Protein (6.3-8.2) g/dL Albumin (3.5-5.0) g/dL Arterial Blood Potassium (3.4-4.5) mmol/L Arterial Blood Glucose (75-99) mg/dL Crossmatch 01/28/18 01/28/18 01/28/18 Range/Units 04:30 04:30 06:12 RBC 2.36 L (3.80-5.40) m/uL Hgb 7.5 L (11.4-16.0) gm/dL Hct 22.4 L (34.0-46.0) % Neutrophils # (1.3-7.7) k/uL Lymphocytes # 0.6 L (1.0-4.8) k/uL INR (<1.2) APTT (22.0-30.0) sec ABG pH (7.35-7.45) ABG pCO2 (35-45) mmHg ABG pO2 (83-108) mmHg ABG Total CO2 (19-24) mmol/L ABG O2 Saturation (94-97) % ABG Hematocrit (34.0-46.0) % ABG Potassium (3.4-4.5) mmol/L ABG Ionized Calcium (4.5-5.3) mg/dL ABG Glucose (75-99) mg/dL ABG Lactic Acid (0.5-1.6) mmol/L Hemoglobin (11.4-16.0) gm/dL Chloride 108 H (98-107) mmol/L Glucose 117 H (74-99) mg/dL POC Glucose (mg/dL) 151 H (75-99) mg/dL Calcium 8.3 L (8.4-10.2) mg/dL AST 54 H (14-36) U/L Total Protein 5.0 L (6.3-8.2) g/dL Albumin 2.6 L (3.5-5.0) g/dL Arterial Blood Potassium (3.4-4.5) mmol/L Arterial Blood Glucose (75-99) mg/dL Crossmatch 01/28/18 Range/Units 06:59 RBC (3.80-5.40) m/uL Hgb (11.4-16.0) gm/dL Hct (34.0-46.0) % Neutrophils # (1.3-7.7) k/uL Lymphocytes # (1.0-4.8) k/uL INR (<1.2) APTT (22.0-30.0) sec ABG pH (7.35-7.45) ABG pCO2 (35-45) mmHg ABG pO2 (83-108) mmHg ABG Total CO2 (19-24) mmol/L ABG O2 Saturation (94-97) % ABG Hematocrit (34.0-46.0) % ABG Potassium (3.4-4.5) mmol/L ABG Ionized Calcium (4.5-5.3) mg/dL ABG Glucose (75-99) mg/dL ABG Lactic Acid (0.5-1.6) mmol/L Hemoglobin (11.4-16.0) gm/dL Chloride (98-107) mmol/L Glucose (74-99) mg/dL POC Glucose (mg/dL) 128 H (75-99) mg/dL Calcium (8.4-10.2) mg/dL AST (14-36) U/L Total Protein (6.3-8.2) g/dL Albumin (3.5-5.0) g/dL Arterial Blood Potassium (3.4-4.5) mmol/L Arterial Blood Glucose (75-99) mg/dL Crossmatch Microbiology - Last 24 Hours (Table) 01/26/18 08:35 Nasal Screen MRSA/MSSA (BHARGAVI) - Final Nasal Swab 01/26/18 07:59 Urine Culture - Final Urine,Clean Catch Strep agalactiae - (group b) - Imaging and Cardiology Chest x-ray: report reviewed, image reviewed Assessment and Plan (1) History of coronary artery disease Current Visit: Yes Status: Chronic Code(s): Z86.79 - PERSONAL HISTORY OF OTHER DISEASES OF THE CIRCULATORY SYSTEM SNOMED Code(s): 153365943 (2) Hyperlipidemia Current Visit: Yes Status: Chronic Code(s): E78.5 - HYPERLIPIDEMIA, UNSPECIFIED SNOMED Code(s): 89859102 (3) Hypertension Current Visit: Yes Status: Chronic Code(s): I10 - ESSENTIAL (PRIMARY) HYPERTENSION SNOMED Code(s): 30385983 (4) Morbid obesity with BMI of 40.0-44.9, adult Current Visit: Yes Status: Chronic Code(s): E66.01 - MORBID (SEVERE) OBESITY DUE TO EXCESS CALORIES; Z68.41 - BODY MASS INDEX (BMI) 40.0-44.9, ADULT SNOMED Code(s): 117892421 (5) Non-STEMI (non-ST elevated myocardial infarction) Current Visit: Yes Status: Acute Code(s): I21.4 - NON-ST ELEVATION (NSTEMI) MYOCARDIAL INFARCTION SNOMED Code(s): 122814449 (6) Diabetes mellitus Current Visit: Yes Status: Chronic Code(s): E11.9 - TYPE 2 DIABETES MELLITUS WITHOUT COMPLICATIONS SNOMED Code(s): 24094194 (7) Left main coronary artery disease Current Visit: Yes Status: Chronic Code(s): I25.10 - ATHSCL HEART DISEASE OF [place] CORONARY ARTERY W/O ANG PCTRS SNOMED Code(s): 535682450 (8) Tobacco dependence in remission Current Visit: No Status: Resolved Code(s): F17.201 - NICOTINE DEPENDENCE, UNSPECIFIED, IN REMISSION SNOMED Code(s): 376412845 (9) Carotid stenosis, left Current Visit: Yes Status: Chronic Code(s): I65.22 - OCCLUSION AND STENOSIS OF LEFT CAROTID ARTERY SNOMED Code(s): 816637047266321 Plan: 1. Continue aspirin, statin, Plavix, subcu heparin, beta kris. Will increase beta kris as tolerated. 2. Will discontinue IV nitro. 3. Discontinue [employer] Cordis to continue CVP monitoring. 4. Wean O2 as tolerated. Encourage incentive spirometry. Encourage continued smoking cessation. 5. GI/DVT prophylaxis. 6. Increase activity, ambulate in room. PT/OT/Cardiac rehab following. 7. Will monitor daily labs and x-rays. No transfusion this morning. 8. Insulin drip/diabetic management per primary care service. 9. Will add home medications. 10. More recommendations to follow. Time with Patient: Greater than 30
[2018-01-28] MEDS: IPRATROPIUM-ALBUTEROL 3 ML NEB INHALATION PRN ×2 (07:26→11:37)
[2018-01-28] MEDS: FERROUS SULFATE 325 MG TAB PO SCH ×2 (07:59→17:10)
[2018-01-28] MEDS: KETOROLAC 30 MG/ML 1 ML VIAL IVP SCH ×3 (08:00→17:09)
[2018-01-28] MEDS: ASCORBIC ACID 500 MG TAB PO SCH ×2 (08:00→17:10)
[2018-01-28] MEDS: PANTOPRAZOLE 40 MG TABLET PO SCH (08:00)
[2018-01-28 08:18] LABS: Glucose,Whole Blood 113 mg/dL (75-99)
[2018-01-28] MEDS ORDERED: PANTOPRAZOLE 40 MG/10 ML VIAL IVP SCH (09:00)
[2018-01-28] MEDS ORDERED: ASPIRIN 325 MG TAB PO SCH (09:00)
[2018-01-28] MEDS: CLOPIDOGREL 75 MG TAB PO SCH (09:09)
[2018-01-28] MEDS: METOPROLOL TARTRATE 12.5 MG TAB PO SCH ×2 (09:09→20:48)
[2018-01-28] MEDS: CITALOPRAM HYDROBROMIDE 20 MG TAB PO SCH (09:10)
[2018-01-28] MEDS: MUPIROCIN 2% OINT 22 GM TUBE NASAL SCH ×2 (09:10→20:51)
[2018-01-28 09:20] LABS: Glucose,Whole Blood 158 mg/dL (75-99)
[2018-01-28 10:17] LABS: Glucose,Whole Blood 205 mg/dL (75-99)
--- NOTE | 2018-01-28 10:41 | P.PN ---
Progress Note - Text The patient is a 67-year-old female who is presently postop after yesterday undergoing a coronary artery bypass surgery. The patient presented initially with neck and jaw pain and found to have a non-Q-wave myocardial infarction. She also had left main disease and other triple vessel disease. Presently she is extubated and sitting up in a chair in her room. She overall is alert and not complaining of any shortness of breath. No nausea or vomiting. Last vital signs reveal a blood pressure 109/41 with respirations 10-13 and a pulse of 87-101 regular. CVP equal 6 and percent saturation is 99 on 3 L nasal cannula. Temperature was 98.4. She appears to be in no respiratory distress. Monitor shows sinus rhythm. Neurologically she appears intact Numerous other wires and tubes appear to be intact. Laboratory White count is 8.4 with a hemoglobin 7.5 and a platelet count of 192. INR is 1.1 with a PTT of 26 Sodium is 142 with a potassium 3.9. BUN is 10 with a creatinine of 0.7 and a GFR of 90. Glucose has ranged from 117 up to 200. AST mildly elevated fated 54. Other liver enzymes good. Total Protein 5 with albumin of 2.6 EKG revealed a regular sinus rhythm. Chest x-ray though does show changes of congestive heart failure. Impressions and plans Overall this 67-year-old female is post coronary artery bypass surgery. She does have somewhat unexpected complications of blood loss anemia and some acute systolic congestive heart failure. These are being monitored and treated in the intensive care unit. She is on IV insulin per protocol. Discussed with staff. We'll be changing over to Accu-Cheks and coverage when her diet improves. Dr. Rickie Chang on medical call for me over the weekend if any concerns or problems.
--- NOTE | 2018-01-28 10:46 | P.PN ---
Subjective Progress Note Date: 01/28/18 Principal diagnosis: Status post open heart This is a pleasant 67-year-old female patient who presented to the hospital with a chest discomfort and ruled in for acute non-ST elevation myocardial infarction. She underwent a heart catheterization by Dr. Brady and was found to have severe left main disease. She underwent CABG 3 with CUMMINGS to LAD, SVG to PDA, and SVG to OM. I'll follow-up with her today, she seems to be doing better. Hemodynamically she is stable. She is on dual antiplatelet therapy along with beta kris as well as statin. The chest x-ray showed some worse in congestive heart failure and I do believe that the patient might benefit from some Lasix. Objective - Vital Signs Vital signs: Vital Signs Temp 98.4 F 01/28/18 08:00 Pulse 101 H 01/28/18 10:00 Resp 10 L 01/28/18 10:00 BP 111/35 01/27/18 23:30 Pulse Ox 99 01/28/18 10:00 Intake & Output 01/27/18 01/28/18 01/28/18 18:59 06:59 18:59 Intake Total 8641.049 4282.765 217.591 Output Total 2270 1169 230 Balance -994.759 -97.235 -12.409 Weight 136.1 kg 136.1 kg Intake: IV 130 708 206 LR 100 600 150 NS pressure bag 27 108 36 cardiac output 20 Intake, IV Titration 625.241 363.765 11.591 Amount ACETAMINOPHEN IV (For NPO 100 ) 1,000 mg In Empty Bag 1 bag @ 400 mls/hr IVPB Q6HR [facility] Rx#:[id number] Albumin Human 5% 250 ml 500 In Empty Bag 1 bag @ 250 mls/hr IVPB Q1HR PRN Rx#: [id number] Clevidipine Butyrate 25 5.434 115.866 mg In Empty Bag 1 bag @ 1 MG/HR 2 mls/hr IV .Q24H MI Rx#:[id number] Insulin Regular 100 unit 37.834 11.591 In Sodium Chloride 0.9% 100 ml @ Per Protocol IV .Q0M [facility] Rx#:[id number] Insulin Regular 100 unit 1.367 In Sodium Chloride 0.9% 100 ml @ Titrate IV .Q0M PRN Rx#:[id number] Propofol 1,000 mg In 69.807 8.698 Empty Bag 1 bag @ Titrate IV .Q0M [facility] Rx#: [id number] ceFAZolin 3 gm In Sodium 100 Chloride 0.9% 100 ml @ 100 mls/hr IVPB Q8HR [facility] Rx#:[id number] ceFAZolin 3 gm In Sodium 50 Chloride 0.9% 50 ml @ 50 mls/hr IVPB Q8HR [facility] Rx#: [id number] Blood Product 520 Platelet Pheresis Acda 520 Unit [id number] Output: Chest Tube Drainage 155 244 80 Chest Tube Bilateral 90 127 30 Mediastinal Pleural Catheter 65 117 50 Bilateral Drainage 80 Left Calf 80 Urine 715 845 150 Estimated Blood Loss 1400 Other: Voiding Method Indwelling Catheter Indwelling Catheter Indwelling Catheter # Voids 1 ABP, PAP, CO, CI - Last Documented Arterial Blood Pressure 109/41 Pulmonary Artery Pressure 13/8 Cardiac Output 7.4 Cardiac Index 3.2 - Constitutional General appearance: Present: no acute distress - Respiratory Respiratory: bilateral: diminished - Cardiovascular Rhythm: regular Heart sounds: normal: S1, S2 - Labs CBC & Chem 7: 01/28/18 04:30 01/28/18 04:30 Labs: Abnormal Lab Results - Last 24 Hours (Table) 01/26/18 01/27/18 01/27/18 Range/Units 11:40 11:51 12:36 RBC (3.80-5.40) m/uL Hgb (11.4-16.0) gm/dL Hct (34.0-46.0) % Neutrophils # (1.3-7.7) k/uL Lymphocytes # (1.0-4.8) k/uL INR (<1.2) APTT (22.0-30.0) sec ABG pH (7.35-7.45) ABG pCO2 (35-45) mmHg ABG pO2 237 H 228 H (83-108) mmHg ABG Total CO2 25 H (19-24) mmol/L ABG O2 Saturation 99.9 H 99.8 H (94-97) % ABG Hematocrit 22 L 22 L (34.0-46.0) % ABG Potassium 4.7 H (3.4-4.5) mmol/L ABG Ionized Calcium 4.3 L 4.4 L (4.5-5.3) mg/dL ABG Glucose 164 H 250 H (75-99) mg/dL ABG Lactic Acid (0.5-1.6) mmol/L Hemoglobin 7.2 L 7.1 L (11.4-16.0) gm/dL Chloride (98-107) mmol/L Glucose (74-99) mg/dL POC Glucose (mg/dL) (75-99) mg/dL Calcium (8.4-10.2) mg/dL AST (14-36) U/L Total Protein (6.3-8.2) g/dL Albumin (3.5-5.0) g/dL Arterial Blood Potassium 4.7 H (3.4-4.5) mmol/L Arterial Blood Glucose 164 H 250 H (75-99) mg/dL Crossmatch See Detail 01/27/18 01/27/18 01/27/18 Range/Units 13:27 14:28 16:17 RBC (3.80-5.40) m/uL Hgb (11.4-16.0) gm/dL Hct (34.0-46.0) % Neutrophils # (1.3-7.7) k/uL Lymphocytes # (1.0-4.8) k/uL INR (<1.2) APTT (22.0-30.0) sec ABG pH 7.31 L (7.35-7.45) ABG pCO2 46 H (35-45) mmHg ABG pO2 368 H 278 H (83-108) mmHg ABG Total CO2 25 H (19-24) mmol/L ABG O2 Saturation 99.9 H 100.0 H (94-97) % ABG Hematocrit 21 L 22 L (34.0-46.0) % ABG Potassium 4.6 H (3.4-4.5) mmol/L ABG Ionized Calcium 4.4 L 4.3 L (4.5-5.3) mg/dL ABG Glucose 241 H 173 H (75-99) mg/dL ABG Lactic Acid 2.6 H* (0.5-1.6) mmol/L Hemoglobin 6.9 L* 7.2 L (11.4-16.0) gm/dL Chloride (98-107) mmol/L Glucose (74-99) mg/dL POC Glucose (mg/dL) 118 H (75-99) mg/dL Calcium (8.4-10.2) mg/dL AST (14-36) U/L Total Protein (6.3-8.2) g/dL Albumin (3.5-5.0) g/dL Arterial Blood Potassium 4.6 H (3.4-4.5) mmol/L Arterial Blood Glucose 241 H 173 H (75-99) mg/dL Crossmatch 01/27/18 01/27/18 01/27/18 Range/Units 16:20 16:20 16:20 RBC 2.43 L (3.80-5.40) m/uL Hgb 7.8 L D (11.4-16.0) gm/dL Hct 23.1 L (34.0-46.0) % Neutrophils # (1.3-7.7) k/uL Lymphocytes # 0.8 L (1.0-4.8) k/uL INR 1.2 H (<1.2) APTT 33.6 H (22.0-30.0) sec ABG pH (7.35-7.45) ABG pCO2 (35-45) mmHg ABG pO2 (83-108) mmHg ABG Total CO2 (19-24) mmol/L ABG O2 Saturation (94-97) % ABG Hematocrit (34.0-46.0) % ABG Potassium (3.4-4.5) mmol/L ABG Ionized Calcium (4.5-5.3) mg/dL ABG Glucose (75-99) mg/dL ABG Lactic Acid (0.5-1.6) mmol/L Hemoglobin (11.4-16.0) gm/dL Chloride 109 H (98-107) mmol/L Glucose 107 H (74-99) mg/dL POC Glucose (mg/dL) (75-99) mg/dL Calcium 7.9 L (8.4-10.2) mg/dL AST 62 H (14-36) U/L Total Protein 4.6 L (6.3-8.2) g/dL Albumin 2.2 L (3.5-5.0) g/dL Arterial Blood Potassium (3.4-4.5) mmol/L Arterial Blood Glucose (75-99) mg/dL Crossmatch 01/27/18 01/27/18 01/27/18 Range/Units 16:47 17:15 18:20 RBC (3.80-5.40) m/uL Hgb (11.4-16.0) gm/dL Hct (34.0-46.0) % Neutrophils # (1.3-7.7) k/uL Lymphocytes # (1.0-4.8) k/uL INR (<1.2) APTT (22.0-30.0) sec ABG pH (7.35-7.45) ABG pCO2 (35-45) mmHg ABG pO2 >400 H (83-108) mmHg ABG Total CO2 26 H (19-24) mmol/L ABG O2 Saturation 100.0 H (94-97) % ABG Hematocrit (34.0-46.0) % ABG Potassium (3.4-4.5) mmol/L ABG Ionized Calcium (4.5-5.3) mg/dL ABG Glucose (75-99) mg/dL ABG Lactic Acid (0.5-1.6) mmol/L Hemoglobin (11.4-16.0) gm/dL Chloride (98-107) mmol/L Glucose (74-99) mg/dL POC Glucose (mg/dL) 121 H 155 H (75-99) mg/dL Calcium (8.4-10.2) mg/dL AST (14-36) U/L Total Protein (6.3-8.2) g/dL Albumin (3.5-5.0) g/dL Arterial Blood Potassium (3.4-4.5) mmol/L Arterial Blood Glucose (75-99) mg/dL Crossmatch 01/27/18 01/27/18 01/27/18 Range/Units 19:00 19:02 19:51 RBC 2.40 L (3.80-5.40) m/uL Hgb 7.7 L (11.4-16.0) gm/dL Hct 22.9 L (34.0-46.0) % Neutrophils # (1.3-7.7) k/uL Lymphocytes # 0.5 L (1.0-4.8) k/uL INR (<1.2) APTT (22.0-30.0) sec ABG pH (7.35-7.45) ABG pCO2 (35-45) mmHg ABG pO2 (83-108) mmHg ABG Total CO2 (19-24) mmol/L ABG O2 Saturation (94-97) % ABG Hematocrit (34.0-46.0) % ABG Potassium (3.4-4.5) mmol/L ABG Ionized Calcium (4.5-5.3) mg/dL ABG Glucose (75-99) mg/dL ABG Lactic Acid (0.5-1.6) mmol/L Hemoglobin (11.4-16.0) gm/dL Chloride (98-107) mmol/L Glucose (74-99) mg/dL POC Glucose (mg/dL) 149 H 146 H (75-99) mg/dL Calcium (8.4-10.2) mg/dL AST (14-36) U/L Total Protein (6.3-8.2) g/dL Albumin (3.5-5.0) g/dL Arterial Blood Potassium (3.4-4.5) mmol/L Arterial Blood Glucose (75-99) mg/dL Crossmatch 01/27/18 01/27/18 01/27/18 Range/Units 21:20 21:20 22:01 RBC (3.80-5.40) m/uL Hgb (11.4-16.0) gm/dL Hct (34.0-46.0) % Neutrophils # (1.3-7.7) k/uL Lymphocytes # (1.0-4.8) k/uL INR (<1.2) APTT (22.0-30.0) sec ABG pH (7.35-7.45) ABG pCO2 (35-45) mmHg ABG pO2 110 H (83-108) mmHg ABG Total CO2 25 H (19-24) mmol/L ABG O2 Saturation 98.4 H (94-97) % ABG Hematocrit (34.0-46.0) % ABG Potassium (3.4-4.5) mmol/L ABG Ionized Calcium (4.5-5.3) mg/dL ABG Glucose (75-99) mg/dL ABG Lactic Acid (0.5-1.6) mmol/L Hemoglobin (11.4-16.0) gm/dL Chloride (98-107) mmol/L Glucose (74-99) mg/dL POC Glucose (mg/dL) 170 H 166 H (75-99) mg/dL Calcium (8.4-10.2) mg/dL AST (14-36) U/L Total Protein (6.3-8.2) g/dL Albumin (3.5-5.0) g/dL Arterial Blood Potassium (3.4-4.5) mmol/L Arterial Blood Glucose (75-99) mg/dL Crossmatch 01/27/18 01/27/18 01/28/18 Range/Units 22:53 23:04 00:12 RBC 2.45 L (3.80-5.40) m/uL Hgb 7.9 L (11.4-16.0) gm/dL Hct 23.2 L (34.0-46.0) % Neutrophils # 7.9 H (1.3-7.7) k/uL Lymphocytes # 0.4 L (1.0-4.8) k/uL INR (<1.2) APTT (22.0-30.0) sec ABG pH (7.35-7.45) ABG pCO2 (35-45) mmHg ABG pO2 (83-108) mmHg ABG Total CO2 (19-24) mmol/L ABG O2 Saturation (94-97) % ABG Hematocrit (34.0-46.0) % ABG Potassium (3.4-4.5) mmol/L ABG Ionized Calcium (4.5-5.3) mg/dL ABG Glucose (75-99) mg/dL ABG Lactic Acid (0.5-1.6) mmol/L Hemoglobin (11.4-16.0) gm/dL Chloride (98-107) mmol/L Glucose (74-99) mg/dL POC Glucose (mg/dL) 145 H 164 H (75-99) mg/dL Calcium (8.4-10.2) mg/dL AST (14-36) U/L Total Protein (6.3-8.2) g/dL Albumin (3.5-5.0) g/dL Arterial Blood Potassium (3.4-4.5) mmol/L Arterial Blood Glucose (75-99) mg/dL Crossmatch 01/28/18 01/28/18 01/28/18 Range/Units 01:01 01:58 03:14 RBC (3.80-5.40) m/uL Hgb (11.4-16.0) gm/dL Hct (34.0-46.0) % Neutrophils # (1.3-7.7) k/uL Lymphocytes # (1.0-4.8) k/uL INR (<1.2) APTT (22.0-30.0) sec ABG pH (7.35-7.45) ABG pCO2 (35-45) mmHg ABG pO2 (83-108) mmHg ABG Total CO2 (19-24) mmol/L ABG O2 Saturation (94-97) % ABG Hematocrit (34.0-46.0) % ABG Potassium (3.4-4.5) mmol/L ABG Ionized Calcium (4.5-5.3) mg/dL ABG Glucose (75-99) mg/dL ABG Lactic Acid (0.5-1.6) mmol/L Hemoglobin (11.4-16.0) gm/dL Chloride (98-107) mmol/L Glucose (74-99) mg/dL POC Glucose (mg/dL) 152 H 138 H 135 H (75-99) mg/dL Calcium (8.4-10.2) mg/dL AST (14-36) U/L Total Protein (6.3-8.2) g/dL Albumin (3.5-5.0) g/dL Arterial Blood Potassium (3.4-4.5) mmol/L Arterial Blood Glucose (75-99) mg/dL Crossmatch 01/28/18 01/28/18 01/28/18 Range/Units 04:23 04:30 04:30 RBC 2.36 L (3.80-5.40) m/uL Hgb 7.5 L (11.4-16.0) gm/dL Hct 22.4 L (34.0-46.0) % Neutrophils # (1.3-7.7) k/uL Lymphocytes # 0.6 L (1.0-4.8) k/uL INR (<1.2) APTT (22.0-30.0) sec ABG pH (7.35-7.45) ABG pCO2 (35-45) mmHg ABG pO2 (83-108) mmHg ABG Total CO2 (19-24) mmol/L ABG O2 Saturation (94-97) % ABG Hematocrit (34.0-46.0) % ABG Potassium (3.4-4.5) mmol/L ABG Ionized Calcium (4.5-5.3) mg/dL ABG Glucose (75-99) mg/dL ABG Lactic Acid (0.5-1.6) mmol/L Hemoglobin (11.4-16.0) gm/dL Chloride 108 H (98-107) mmol/L Glucose 117 H (74-99) mg/dL POC Glucose (mg/dL) 124 H (75-99) mg/dL Calcium 8.3 L (8.4-10.2) mg/dL AST 54 H (14-36) U/L Total Protein 5.0 L (6.3-8.2) g/dL Albumin 2.6 L (3.5-5.0) g/dL Arterial Blood Potassium (3.4-4.5) mmol/L Arterial Blood Glucose (75-99) mg/dL Crossmatch 01/28/18 01/28/18 01/28/18 Range/Units 06:12 06:59 08:16 RBC (3.80-5.40) m/uL Hgb (11.4-16.0) gm/dL Hct (34.0-46.0) % Neutrophils # (1.3-7.7) k/uL Lymphocytes # (1.0-4.8) k/uL INR (<1.2) APTT (22.0-30.0) sec ABG pH (7.35-7.45) ABG pCO2 (35-45) mmHg ABG pO2 (83-108) mmHg ABG Total CO2 (19-24) mmol/L ABG O2 Saturation (94-97) % ABG Hematocrit (34.0-46.0) % ABG Potassium (3.4-4.5) mmol/L ABG Ionized Calcium (4.5-5.3) mg/dL ABG Glucose (75-99) mg/dL ABG Lactic Acid (0.5-1.6) mmol/L Hemoglobin (11.4-16.0) gm/dL Chloride (98-107) mmol/L Glucose (74-99) mg/dL POC Glucose (mg/dL) 151 H 128 H 113 H (75-99) mg/dL Calcium (8.4-10.2) mg/dL AST (14-36) U/L Total Protein (6.3-8.2) g/dL Albumin (3.5-5.0) g/dL Arterial Blood Potassium (3.4-4.5) mmol/L Arterial Blood Glucose (75-99) mg/dL Crossmatch 01/28/18 01/28/18 Range/Units 09:18 10:15 RBC (3.80-5.40) m/uL Hgb (11.4-16.0) gm/dL Hct (34.0-46.0) % Neutrophils # (1.3-7.7) k/uL Lymphocytes # (1.0-4.8) k/uL INR (<1.2) APTT (22.0-30.0) sec ABG pH (7.35-7.45) ABG pCO2 (35-45) mmHg ABG pO2 (83-108) mmHg ABG Total CO2 (19-24) mmol/L ABG O2 Saturation (94-97) % ABG Hematocrit (34.0-46.0) % ABG Potassium (3.4-4.5) mmol/L ABG Ionized Calcium (4.5-5.3) mg/dL ABG Glucose (75-99) mg/dL ABG Lactic Acid (0.5-1.6) mmol/L Hemoglobin (11.4-16.0) gm/dL Chloride (98-107) mmol/L Glucose (74-99) mg/dL POC Glucose (mg/dL) 158 H 205 H (75-99) mg/dL Calcium (8.4-10.2) mg/dL AST (14-36) U/L Total Protein (6.3-8.2) g/dL Albumin (3.5-5.0) g/dL Arterial Blood Potassium (3.4-4.5) mmol/L Arterial Blood Glucose (75-99) mg/dL Crossmatch Microbiology - Last 24 Hours (Table) 01/26/18 08:35 Nasal Screen MRSA/MSSA (BHARGAVI) - Final Nasal Swab 01/26/18 07:59 Urine Culture - Final Urine,Clean Catch Strep agalactiae - (group b) Assessment and Plan Assessment: Assessment #1 severe underlying CAD and status post CABG as described above Plan #1 continue the current medical treatment which included dual antiplatelet as well as statin and beta kris #2 monitor the kidney function and electrolytes as well as a hemoglobin #3 continue following up with the patient
[2018-01-28 11:17] LABS: Glucose,Whole Blood 165 mg/dL (75-99)
[2018-01-28] MEDS ORDERED: ERGOCALCIFEROL 50,000 UNIT CAP PO SCH (12:00)
--- NOTE | 2018-01-28 12:00 | P.PN ---
Subjective Progress Note Date: 01/28/18 67-year-old female patient with known history of coronary artery disease and previous W[place] back in 2013 in addition to left internal carotid artery stenosis approximately 50-79% based on ultrasound in addition to history of smoking which she quit more than 30 years ago. The patient has other comorbidities including hypertension and hyperlipidemia and obesity. The patient came into the hospital because of chest tightness and pain radiating to her jaw. She was also feeling nauseated and she had a bout of emesis. She ruled in for acute [place]. The troponin was elevated and the highest was at 15.4. Based on that a cardiac catheterization was done and it showed a 60% stenosis of the left main, 95% stenosis of the right coronary artery, totally occluded circumflex coronary artery, 90% stenosis of the proximal left anterior descending, 60% stenosis in the mid anterior descending. The LV angiogram showed a normal ejection fraction of 60%. The patient was kept on IV heparin. She is currently being evaluated for cardiac bypass surgery. This is being considered yet is currently on hold knowing that the patient has taken Plavix. Follow pulmonary standpoint, the patient may have an underlying COPD although this has not been officially diagnosed. Her FEV1 was measured to be at around 35%. This was a suboptimal effort. She claims that she is able to climb a flight of stairs with some limited difficulties. No cough. No sputum production. No hemoptysis. Pleurisy. No swelling lower extremities. No recurrent pneumonias. No reported history of any obstructive sleep apnea. No asthma during childhood. No previous history of DVT and pulmonary embolism. Chest x- ray shows no evidence of any lung masses or lesions. Pulse ox on room air is 97 %. On the I'm seeing Abril for a follow-up. The patient is ready for bypass surgery tomorrow. She repeated her spirometry and she did much better and her FEV1 essentially normalized. I think the initial one was a suboptimal study. Meanwhile, she remains free of any chest pain. No cough or sputum production. No fever chills or night sweats. No other complaints otherwise for now. For the most part she is ready for coronary artery bypass surgery to be done tomorrow by Dr. Perera. On 01/27/2018 the patient is being seen immediately after her coronary artery bypass surgery. The patient underwent three-vessel bypass. Currently she is postop day #0. She is currently intubated on a mechanical ventilator. I have an assist-control of 18, tidal volume 500 with an FiO2 of 100% and a PEEP of 5. Chest x-ray and blood gases are still pending for now. Meanwhile, the patient is sedated with Diprivan and currently is on 20 mics of the prevent for sedation. She is very symptoms with the mechanical ventilator. Hemodynamically stable. She required some Musa-Synephrine postop currently she is off pressors. Her cardiac index is at 1.9. Pulmonary artery pressures are nonelevated. She is producing adequate amount of urine output. The patient has 2 mediastinal chest tubes, 1 pleural on the right and 1 pleural on the left chest tubes. Output is being also closely monitored. The patient is also paced , DDD, at the rate of 80 and her underlying rhythm is sinus at a low rate probably in the mid 50s. Pacing was performed to augment her cardiac output. No other significant events postop. We'll be awaiting for the blood gases and the chest x-ray we'll proceed with further weaning on the FiO2 and and anticipate weaning and extubation probably within next 6 hours. She is also on insulin drip for blood sugar control. He required a total of 5 units of platelet transfusion intraoperatively. On 01/28/2018 I'm seeing this patient for a follow-up. The patient has undergone coronary artery bypass surgery and the patient is postop day #1. She was extubated within 6 hours of being brought into the intensive care unit. This morning, she is in oxygen by nasal cannula and sitting up on a chair and she is calm and comfortable. The patient has 2 mediastinal chest tubes and the patient is a right pleural and left pleural chest tube. The patient underwent three-vessel bypass surgery. Output from the chest tubes are low in general. The pleural chest tubes and drained 80 mL this morning and immediately felt chest tubes have drained approximately 30 mL. The patient is hemodynamically stable on no pressors. Vitals are all stable. Fishers-Ethan catheter will be taken out today. Cardiac output is above 8. Pulmonary artery pressure is none elevated. Patient is producing adequate amount of urine output. She remains on incentive for blood sugar control. Sternal stable clean and intact. She is receiving adequate pain control. No other significant events overnight. She is awake and alert. Following commands and answering questions. Hemoglobin from today is at 7.5. Objective - Vital Signs Vital signs: Vital Signs Temp 98.4 F 01/28/18 08:00 Pulse 78 01/28/18 11:50 Resp 12 01/28/18 11:00 BP 111/35 01/27/18 23:30 Pulse Ox 100 01/28/18 11:00 Intake & Output 01/27/18 01/28/18 01/28/18 18:59 06:59 18:59 Intake Total 1632.840 7811.765 263.474 Output Total 2270 1169 277 Balance -994.759 -97.235 -13.526 Weight 136.1 kg 136.1 kg Intake: IV 130 708 245 LR 100 600 180 NS pressure bag 27 108 45 cardiac output 20 Intake, IV Titration 625.241 363.765 18.474 Amount ACETAMINOPHEN IV (For NPO 100 ) 1,000 mg In Empty Bag 1 bag @ 400 mls/hr IVPB Q6HR MI Rx#:[id number] Albumin Human 5% 250 ml 500 In Empty Bag 1 bag @ 250 mls/hr IVPB Q1HR PRN Rx#: [id number] Clevidipine Butyrate 25 5.434 115.866 mg In Empty Bag 1 bag @ 1 MG/HR 2 mls/hr IV .Q24H MI Rx#:[id number] Insulin Regular 100 unit 37.834 18.474 In Sodium Chloride 0.9% 100 ml @ Per Protocol IV .Q0M MI Rx#:[id number] Insulin Regular 100 unit 1.367 In Sodium Chloride 0.9% 100 ml @ Titrate IV .Q0M PRN Rx#:[id number] Propofol 1,000 mg In 69.807 8.698 Empty Bag 1 bag @ Titrate IV .Q0M MI Rx#: [id number] ceFAZolin 3 gm In Sodium 100 Chloride 0.9% 100 ml @ 100 mls/hr IVPB Q8HR MI Rx#:[id number] ceFAZolin 3 gm In Sodium 50 Chloride 0.9% 50 ml @ 50 mls/hr IVPB Q8HR MI Rx#: [id number] Blood Product 520 Platelet Pheresis Acda 520 Unit [id number] Output: Chest Tube Drainage 155 244 100 Chest Tube Bilateral 90 127 50 Mediastinal Pleural Catheter 65 117 50 Bilateral Drainage 80 Left Calf 80 Urine 715 845 177 Estimated Blood Loss 1400 Other: Voiding Method Indwelling Catheter Indwelling Catheter Indwelling Catheter # Voids 1 ABP, PAP, CO, CI - Last Documented Arterial Blood Pressure 119/42 Pulmonary Artery Pressure 21/14 Cardiac Output 7.4 Cardiac Index 3.2 - Exam Gen. appearance the patient is awake and alert and the patient is following commands and answering questions it is sitting up on a chair.. Head is atraumatic normocephalic. Neck the patient has an IJ Cordis with a Fishers-Ethan catheter which is in place. . There was no scleral icterus or corneal arcus. Mucous membranes were moist.Neck was supple and without jugular venous distension, thyromegaly, or carotid bruits. Carotids were easily palpable bilaterally. There was no adenopathy. Lung sounds are diminished in lung bases bilaterally. The patient has a sternum which is currently dry clean and intact. The patient has a right and the left pleural chest tubes and the patient has 2 mediastinal chest tubes. Heart sounds are regular, positive S1-S2 , no cervical murmurs are being appreciated this point in time.Abdominal exam revealed normal bowel sounds. The abdomen was soft, non-tender, and without masses, organomegaly, or appreciable enlargement of the abdominal aorta.Examination of the extremities revealed easily palpable radial, femoral and pedal pulses. There was no cyanosis, clubbing or edema. Skin, all of the surgical wound sites of dry clean and intact. Neurologically the patient awake and alert 3 and there is no focal neurological deficit at this point. Scan, all of the surgical wound sites of dry. Sternum stable clean and intact. - Labs CBC & Chem 7: 01/28/18 04:30 01/28/18 04:30 Labs: Abnormal Lab Results - Last 24 Hours (Table) 01/26/18 01/27/18 01/27/18 Range/Units 11:40 11:51 12:36 RBC (3.80-5.40) m/uL Hgb (11.4-16.0) gm/dL Hct (34.0-46.0) % Neutrophils # (1.3-7.7) k/uL Lymphocytes # (1.0-4.8) k/uL INR (<1.2) APTT (22.0-30.0) sec ABG pH (7.35-7.45) ABG pCO2 (35-45) mmHg ABG pO2 237 H 228 H (83-108) mmHg ABG Total CO2 25 H (19-24) mmol/L ABG O2 Saturation 99.9 H 99.8 H (94-97) % ABG Hematocrit 22 L 22 L (34.0-46.0) % ABG Potassium 4.7 H (3.4-4.5) mmol/L ABG Ionized Calcium 4.3 L 4.4 L (4.5-5.3) mg/dL ABG Glucose 164 H 250 H (75-99) mg/dL ABG Lactic Acid (0.5-1.6) mmol/L Hemoglobin 7.2 L 7.1 L (11.4-16.0) gm/dL Chloride (98-107) mmol/L Glucose (74-99) mg/dL POC Glucose (mg/dL) (75-99) mg/dL Calcium (8.4-10.2) mg/dL AST (14-36) U/L Total Protein (6.3-8.2) g/dL Albumin (3.5-5.0) g/dL Arterial Blood Potassium 4.7 H (3.4-4.5) mmol/L Arterial Blood Glucose 164 H 250 H (75-99) mg/dL Crossmatch See Detail 01/27/18 01/27/18 01/27/18 Range/Units 13:27 14:28 16:17 RBC (3.80-5.40) m/uL Hgb (11.4-16.0) gm/dL Hct (34.0-46.0) % Neutrophils # (1.3-7.7) k/uL Lymphocytes # (1.0-4.8) k/uL INR (<1.2) APTT (22.0-30.0) sec ABG pH 7.31 L (7.35-7.45) ABG pCO2 46 H (35-45) mmHg ABG pO2 368 H 278 H (83-108) mmHg ABG Total CO2 25 H (19-24) mmol/L ABG O2 Saturation 99.9 H 100.0 H (94-97) % ABG Hematocrit 21 L 22 L (34.0-46.0) % ABG Potassium 4.6 H (3.4-4.5) mmol/L ABG Ionized Calcium 4.4 L 4.3 L (4.5-5.3) mg/dL ABG Glucose 241 H 173 H (75-99) mg/dL ABG Lactic Acid 2.6 H* (0.5-1.6) mmol/L Hemoglobin 6.9 L* 7.2 L (11.4-16.0) gm/dL Chloride (98-107) mmol/L Glucose (74-99) mg/dL POC Glucose (mg/dL) 118 H (75-99) mg/dL Calcium (8.4-10.2) mg/dL AST (14-36) U/L Total Protein (6.3-8.2) g/dL Albumin (3.5-5.0) g/dL Arterial Blood Potassium 4.6 H (3.4-4.5) mmol/L Arterial Blood Glucose 241 H 173 H (75-99) mg/dL Crossmatch 01/27/18 01/27/18 01/27/18 Range/Units 16:20 16:20 16:20 RBC 2.43 L (3.80-5.40) m/uL Hgb 7.8 L D (11.4-16.0) gm/dL Hct 23.1 L (34.0-46.0) % Neutrophils # (1.3-7.7) k/uL Lymphocytes # 0.8 L (1.0-4.8) k/uL INR 1.2 H (<1.2) APTT 33.6 H (22.0-30.0) sec ABG pH (7.35-7.45) ABG pCO2 (35-45) mmHg ABG pO2 (83-108) mmHg ABG Total CO2 (19-24) mmol/L ABG O2 Saturation (94-97) % ABG Hematocrit (34.0-46.0) % ABG Potassium (3.4-4.5) mmol/L ABG Ionized Calcium (4.5-5.3) mg/dL ABG Glucose (75-99) mg/dL ABG Lactic Acid (0.5-1.6) mmol/L Hemoglobin (11.4-16.0) gm/dL Chloride 109 H (98-107) mmol/L Glucose 107 H (74-99) mg/dL POC Glucose (mg/dL) (75-99) mg/dL Calcium 7.9 L (8.4-10.2) mg/dL AST 62 H (14-36) U/L Total Protein 4.6 L (6.3-8.2) g/dL Albumin 2.2 L (3.5-5.0) g/dL Arterial Blood Potassium (3.4-4.5) mmol/L Arterial Blood Glucose (75-99) mg/dL Crossmatch 01/27/18 01/27/18 01/27/18 Range/Units 16:47 17:15 18:20 RBC (3.80-5.40) m/uL Hgb (11.4-16.0) gm/dL Hct (34.0-46.0) % Neutrophils # (1.3-7.7) k/uL Lymphocytes # (1.0-4.8) k/uL INR (<1.2) APTT (22.0-30.0) sec ABG pH (7.35-7.45) ABG pCO2 (35-45) mmHg ABG pO2 >400 H (83-108) mmHg ABG Total CO2 26 H (19-24) mmol/L ABG O2 Saturation 100.0 H (94-97) % ABG Hematocrit (34.0-46.0) % ABG Potassium (3.4-4.5) mmol/L ABG Ionized Calcium (4.5-5.3) mg/dL ABG Glucose (75-99) mg/dL ABG Lactic Acid (0.5-1.6) mmol/L Hemoglobin (11.4-16.0) gm/dL Chloride (98-107) mmol/L Glucose (74-99) mg/dL POC Glucose (mg/dL) 121 H 155 H (75-99) mg/dL Calcium (8.4-10.2) mg/dL AST (14-36) U/L Total Protein (6.3-8.2) g/dL Albumin (3.5-5.0) g/dL Arterial Blood Potassium (3.4-4.5) mmol/L Arterial Blood Glucose (75-99) mg/dL Crossmatch 01/27/18 01/27/18 01/27/18 Range/Units 19:00 19:02 19:51 RBC 2.40 L (3.80-5.40) m/uL Hgb 7.7 L (11.4-16.0) gm/dL Hct 22.9 L (34.0-46.0) % Neutrophils # (1.3-7.7) k/uL Lymphocytes # 0.5 L (1.0-4.8) k/uL INR (<1.2) APTT (22.0-30.0) sec ABG pH (7.35-7.45) ABG pCO2 (35-45) mmHg ABG pO2 (83-108) mmHg ABG Total CO2 (19-24) mmol/L ABG O2 Saturation (94-97) % ABG Hematocrit (34.0-46.0) % ABG Potassium (3.4-4.5) mmol/L ABG Ionized Calcium (4.5-5.3) mg/dL ABG Glucose (75-99) mg/dL ABG Lactic Acid (0.5-1.6) mmol/L Hemoglobin (11.4-16.0) gm/dL Chloride (98-107) mmol/L Glucose (74-99) mg/dL POC Glucose (mg/dL) 149 H 146 H (75-99) mg/dL Calcium (8.4-10.2) mg/dL AST (14-36) U/L Total Protein (6.3-8.2) g/dL Albumin (3.5-5.0) g/dL Arterial Blood Potassium (3.4-4.5) mmol/L Arterial Blood Glucose (75-99) mg/dL Crossmatch 01/27/18 01/27/18 01/27/18 Range/Units 21:20 21:20 22:01 RBC (3.80-5.40) m/uL Hgb (11.4-16.0) gm/dL Hct (34.0-46.0) % Neutrophils # (1.3-7.7) k/uL Lymphocytes # (1.0-4.8) k/uL INR (<1.2) APTT (22.0-30.0) sec ABG pH (7.35-7.45) ABG pCO2 (35-45) mmHg ABG pO2 110 H (83-108) mmHg ABG Total CO2 25 H (19-24) mmol/L ABG O2 Saturation 98.4 H (94-97) % ABG Hematocrit (34.0-46.0) % ABG Potassium (3.4-4.5) mmol/L ABG Ionized Calcium (4.5-5.3) mg/dL ABG Glucose (75-99) mg/dL ABG Lactic Acid (0.5-1.6) mmol/L Hemoglobin (11.4-16.0) gm/dL Chloride (98-107) mmol/L Glucose (74-99) mg/dL POC Glucose (mg/dL) 170 H 166 H (75-99) mg/dL Calcium (8.4-10.2) mg/dL AST (14-36) U/L Total Protein (6.3-8.2) g/dL Albumin (3.5-5.0) g/dL Arterial Blood Potassium (3.4-4.5) mmol/L Arterial Blood Glucose (75-99) mg/dL Crossmatch 01/27/18 01/27/18 01/28/18 Range/Units 22:53 23:04 00:12 RBC 2.45 L (3.80-5.40) m/uL Hgb 7.9 L (11.4-16.0) gm/dL Hct 23.2 L (34.0-46.0) % Neutrophils # 7.9 H (1.3-7.7) k/uL Lymphocytes # 0.4 L (1.0-4.8) k/uL INR (<1.2) APTT (22.0-30.0) sec ABG pH (7.35-7.45) ABG pCO2 (35-45) mmHg ABG pO2 (83-108) mmHg ABG Total CO2 (19-24) mmol/L ABG O2 Saturation (94-97) % ABG Hematocrit (34.0-46.0) % ABG Potassium (3.4-4.5) mmol/L ABG Ionized Calcium (4.5-5.3) mg/dL ABG Glucose (75-99) mg/dL ABG Lactic Acid (0.5-1.6) mmol/L Hemoglobin (11.4-16.0) gm/dL Chloride (98-107) mmol/L Glucose (74-99) mg/dL POC Glucose (mg/dL) 145 H 164 H (75-99) mg/dL Calcium (8.4-10.2) mg/dL AST (14-36) U/L Total Protein (6.3-8.2) g/dL Albumin (3.5-5.0) g/dL Arterial Blood Potassium (3.4-4.5) mmol/L Arterial Blood Glucose (75-99) mg/dL Crossmatch 01/28/18 01/28/18 01/28/18 Range/Units 01:01 01:58 03:14 RBC (3.80-5.40) m/uL Hgb (11.4-16.0) gm/dL Hct (34.0-46.0) % Neutrophils # (1.3-7.7) k/uL Lymphocytes # (1.0-4.8) k/uL INR (<1.2) APTT (22.0-30.0) sec ABG pH (7.35-7.45) ABG pCO2 (35-45) mmHg ABG pO2 (83-108) mmHg ABG Total CO2 (19-24) mmol/L ABG O2 Saturation (94-97) % ABG Hematocrit (34.0-46.0) % ABG Potassium (3.4-4.5) mmol/L ABG Ionized Calcium (4.5-5.3) mg/dL ABG Glucose (75-99) mg/dL ABG Lactic Acid (0.5-1.6) mmol/L Hemoglobin (11.4-16.0) gm/dL Chloride (98-107) mmol/L Glucose (74-99) mg/dL POC Glucose (mg/dL) 152 H 138 H 135 H (75-99) mg/dL Calcium (8.4-10.2) mg/dL AST (14-36) U/L Total Protein (6.3-8.2) g/dL Albumin (3.5-5.0) g/dL Arterial Blood Potassium (3.4-4.5) mmol/L Arterial Blood Glucose (75-99) mg/dL Crossmatch 01/28/18 01/28/18 01/28/18 Range/Units 04:23 04:30 04:30 RBC 2.36 L (3.80-5.40) m/uL Hgb 7.5 L (11.4-16.0) gm/dL Hct 22.4 L (34.0-46.0) % Neutrophils # (1.3-7.7) k/uL Lymphocytes # 0.6 L (1.0-4.8) k/uL INR (<1.2) APTT (22.0-30.0) sec ABG pH (7.35-7.45) ABG pCO2 (35-45) mmHg ABG pO2 (83-108) mmHg ABG Total CO2 (19-24) mmol/L ABG O2 Saturation (94-97) % ABG Hematocrit (34.0-46.0) % ABG Potassium (3.4-4.5) mmol/L ABG Ionized Calcium (4.5-5.3) mg/dL ABG Glucose (75-99) mg/dL ABG Lactic Acid (0.5-1.6) mmol/L Hemoglobin (11.4-16.0) gm/dL Chloride 108 H (98-107) mmol/L Glucose 117 H (74-99) mg/dL POC Glucose (mg/dL) 124 H (75-99) mg/dL Calcium 8.3 L (8.4-10.2) mg/dL AST 54 H (14-36) U/L Total Protein 5.0 L (6.3-8.2) g/dL Albumin 2.6 L (3.5-5.0) g/dL Arterial Blood Potassium (3.4-4.5) mmol/L Arterial Blood Glucose (75-99) mg/dL Crossmatch 01/28/18 01/28/18 01/28/18 Range/Units 06:12 06:59 08:16 RBC (3.80-5.40) m/uL Hgb (11.4-16.0) gm/dL Hct (34.0-46.0) % Neutrophils # (1.3-7.7) k/uL Lymphocytes # (1.0-4.8) k/uL INR (<1.2) APTT (22.0-30.0) sec ABG pH (7.35-7.45) ABG pCO2 (35-45) mmHg ABG pO2 (83-108) mmHg ABG Total CO2 (19-24) mmol/L ABG O2 Saturation (94-97) % ABG Hematocrit (34.0-46.0) % ABG Potassium (3.4-4.5) mmol/L ABG Ionized Calcium (4.5-5.3) mg/dL ABG Glucose (75-99) mg/dL ABG Lactic Acid (0.5-1.6) mmol/L Hemoglobin (11.4-16.0) gm/dL Chloride (98-107) mmol/L Glucose (74-99) mg/dL POC Glucose (mg/dL) 151 H 128 H 113 H (75-99) mg/dL Calcium (8.4-10.2) mg/dL AST (14-36) U/L Total Protein (6.3-8.2) g/dL Albumin (3.5-5.0) g/dL Arterial Blood Potassium (3.4-4.5) mmol/L Arterial Blood Glucose (75-99) mg/dL Crossmatch 01/28/18 01/28/18 01/28/18 Range/Units 09:18 10:15 11:14 RBC (3.80-5.40) m/uL Hgb (11.4-16.0) gm/dL Hct (34.0-46.0) % Neutrophils # (1.3-7.7) k/uL Lymphocytes # (1.0-4.8) k/uL INR (<1.2) APTT (22.0-30.0) sec ABG pH (7.35-7.45) ABG pCO2 (35-45) mmHg ABG pO2 (83-108) mmHg ABG Total CO2 (19-24) mmol/L ABG O2 Saturation (94-97) % ABG Hematocrit (34.0-46.0) % ABG Potassium (3.4-4.5) mmol/L ABG Ionized Calcium (4.5-5.3) mg/dL ABG Glucose (75-99) mg/dL ABG Lactic Acid (0.5-1.6) mmol/L Hemoglobin (11.4-16.0) gm/dL Chloride (98-107) mmol/L Glucose (74-99) mg/dL POC Glucose (mg/dL) 158 H 205 H 165 H (75-99) mg/dL Calcium (8.4-10.2) mg/dL AST (14-36) U/L Total Protein (6.3-8.2) g/dL Albumin (3.5-5.0) g/dL Arterial Blood Potassium (3.4-4.5) mmol/L Arterial Blood Glucose (75-99) mg/dL Crossmatch Microbiology - Last 24 Hours (Table) 01/26/18 08:35 Nasal Screen MRSA/MSSA (BHARGAVI) - Final Nasal Swab 01/26/18 07:59 Urine Culture - Final Urine,Clean Catch Strep agalactiae - (group b) Assessment and Plan Plan: Assessment 1 multivessel coronary artery disease status post acute non-ST segment elevation myocardial infarction, the patient has undergone three-vessel bypass surgery, patient is postop day #1 2 post thoracotomy mechanical ventilation, and expected outcome following bypass surgery. The patient was extubated without any major difficulties and currently she is recovering well with a chest x-ray from today showing adequate expansion of both lungs and the chest tubes are all in place with diminished output. No evidence of any air leak. 3 COPD, inactive in stable 4 diabetes mellitus, currently on insulin drip for blood sugar control 5 diabetic retinopathy and glaucoma 6 hypertension 7 hyperlipidemia 8 preserved LV function with a normal ejection fraction of 60% 9 left internal carotid artery stenosis estimated to be around 50-79% 10 fibromyalgia 11 acid reflux 12 degenerative arthritis Plan I'm going to ask the patient to continue the incentive spirometer. Remove the Fishers-Ethan catheter and keep the Cordis in place. Continue insulin drip. Her heart rate is picked up and the patient is currently off the pacemaker and her underlying intrinsic rhythm is sinus with a rate in the mid 80s. Pain is under good control. Monitor the output from the chest tube. Increased level of activity as tolerated. We'll continue to follow. She is recovering reasonably well at this point in time.
[2018-01-28] MEDS: MULTIVITAMINS, THERA 1 EACH TAB PO SCH (12:09)
[2018-01-28 12:15] LABS: Glucose,Whole Blood 146 mg/dL (75-99)
[2018-01-28] MEDS ORDERED: POTASSIUM CHLORIDE ER 20 MEQ TAB.ER PO ONE (13:00)
[2018-01-28 13:03] LABS: Glucose,Whole Blood 158 mg/dL (75-99)
[2018-01-28] MEDS: ALBUMIN HUMAN 5% 250 ML in EMPTY BAG 1 BAG IVPB PRN ×2 (13:21→13:56)
[2018-01-28 14:02] LABS: Glucose,Whole Blood 159 mg/dL (75-99)
[2018-01-28] MEDS ORDERED: BISACODYL 10 MG SUPP RECTAL PRN (15:07)
[2018-01-28] MEDS ORDERED: MAGNESIUM HYDROXIDE 2,400 MG/10 ML CUP PO PRN (15:07)
[2018-01-28] MEDS: ATORVASTATIN 40 MG TAB PO SCH (15:11)
[2018-01-28] MEDS: LACTATED RINGERS 1,000 ML IV SCH (15:11)
[2018-01-28] MEDS ORDERED: NOREPINEPHRIN 16 MG-0.9%NS PMX 16 MG/250 ML ML IV SCH (15:15)
[2018-01-28 15:25] LABS: Glucose,Whole Blood 150 mg/dL (75-99)
[2018-01-28 16:09] LABS: Glucose,Whole Blood 135 mg/dL (75-99)
[2018-01-28 17:09] LABS: Glucose,Whole Blood 119 mg/dL (75-99)
[2018-01-28] MEDS: INSULIN REGULAR 100 UNIT in SODIUM CHLORIDE 0.9% 100 ML IV SCH (17:56)
[2018-01-28 18:06] LABS: Glucose,Whole Blood 103 mg/dL (75-99)
[2018-01-28 19:02] LABS: Glucose,Whole Blood 168 mg/dL (75-99)
[2018-01-28 20:38] LABS: Glucose,Whole Blood 166 mg/dL (75-99)
[2018-01-28] MEDS: MONTELUKAST 10 MG TAB PO SCH (20:50)
[2018-01-28] MEDS: SENNOSIDES-DOCUSATE SODIUM 1 EACH TAB PO SCH (20:51)
[2018-01-28 22:10] LABS: Glucose,Whole Blood 128 mg/dL (75-99)
[2018-01-28 23:36] LABS: Glucose,Whole Blood 98 mg/dL (75-99)
[2018-01-29 00:11] LABS: Glucose,Whole Blood 98 mg/dL (75-99)
[2018-01-29] MEDS: HEPARIN SODIUM,PORCINE 5,000 UNIT/ML 1 ML VIAL SQ SCH ×4 (00:13→23:03)
[2018-01-29] MEDS: KETOROLAC 30 MG/ML 1 ML VIAL IVP SCH ×5 (00:13→23:04)
[2018-01-29] MEDS: HYDROcodone/APAP 5-325MG 1 EACH TAB PO PRN ×2 (01:05→09:36)
[2018-01-29 01:15] LABS: Glucose,Whole Blood 146 mg/dL (75-99)
[2018-01-29 02:10] LABS: Glucose,Whole Blood 140 mg/dL (75-99)
[2018-01-29 03:21] LABS: Glucose,Whole Blood 122 mg/dL (75-99)
[2018-01-29 04:51] LABS: Glucose,Whole Blood 98 mg/dL (75-99)
[2018-01-29 04:58] LABS: Basophils % (A) 0 %; Eosinophils # (A) 0.2 k/uL (0-0.7); Eosinophils % (A) 2 %; Lymphocytes % (A) 12 %; MCH 32.3 pg (25.0-35.0); MCHC 33.4 g/dL (31.0-37.0); MCV 96.5 fL (80.0-100.0); Monocytes # (A) 0.4 k/uL (0-1.0); Monocytes % (A) 4 %; Neutrophils % (A) 81 %; Platelet Count 156 k/uL (150-450); RBC 1.98 m/uL (3.80-5.40); RDW 13.8 % (11.5-15.5); WBC 8.6 k/uL (3.8-10.6)
[2018-01-29 05:03] LABS: Ionized Calcium 4.8 mg/dL (4.5-5.3)
[2018-01-29 05:10] LABS: Albumin 2.6 g/dL (3.5-5.0); Calcium 8.1 mg/dL (8.4-10.2); Magnesium 2.2 mg/dL (1.6-2.3); Phosphorus 3.1 mg/dL (2.5-4.5); Total Bilirubin 0.3 mg/dL (0.2-1.3); Total Protein 4.9 g/dL (6.3-8.2)
[2018-01-29 05:23] LABS: HCT 19.2 % (34.0-46.0); HGB 6.4 gm/dL (11.4-16.0)
[2018-01-29 06:33] LABS: Glucose,Whole Blood 120 mg/dL (75-99)
[2018-01-29 08:15] LABS: Glucose,Whole Blood 152 mg/dL (75-99)
[2018-01-29] MEDS: FERROUS SULFATE 325 MG TAB PO SCH ×2 (08:32→18:10)
[2018-01-29] MEDS: ASCORBIC ACID 500 MG TAB PO SCH ×2 (08:32→18:10)
[2018-01-29] MEDS: PANTOPRAZOLE 40 MG TABLET PO SCH (08:32)
[2018-01-29] MEDS: CLOPIDOGREL 75 MG TAB PO SCH (08:33)
[2018-01-29] MEDS: MUPIROCIN 2% OINT 22 GM TUBE NASAL SCH ×2 (08:33→20:00)
[2018-01-29] MEDS: METOPROLOL TARTRATE 12.5 MG TAB PO SCH ×2 (08:33→20:00)
[2018-01-29] MEDS: MULTIVITAMINS, THERA 1 EACH TAB PO SCH (08:33)
[2018-01-29 08:39] LABS: MCH 32.2 pg (25.0-35.0); MCHC 33.2 g/dL (31.0-37.0); MCV 96.8 fL (80.0-100.0); Platelet Count 181 k/uL (150-450); RBC 2.03 m/uL (3.80-5.40); RDW 13.8 % (11.5-15.5); WBC 8.2 k/uL (3.8-10.6)
[2018-01-29 08:40] LABS: HCT 19.6 % (34.0-46.0); HGB 6.5 gm/dL (11.4-16.0)
--- NOTE | 2018-01-29 08:47 | P.PN ---
Subjective Progress Note Date: 01/29/18 Principal diagnosis: Severe coronary artery disease including left main stenosis of 60%, NSTEMI. Previous medical history of coronary artery disease with previous myocardial infarction 2013, hypertension, hyperlipidemia, fibromyalgia, depression, left carotid stenosis greater than 70%, previous tobacco dependence with the current FEV1 of 104% predicted, obesity with history of lap band surgery, renal failure with 2 treatments of hemodialysis, GERD, and diabetes mellitus type tube with current hemoglobin A1c of 7.1%. POD #2 urgent coronary artery bypass grafting 3 vessels, left internal mammary artery to left anterior descending artery, reverse saphenous vein graft to the posterior descending artery, reverse saphenous vein graft to the distal obtuse marginal artery. Endoscopic vein harvesting of the left greater saphenous vein. Epi-aortic ultrasound. Intraoperative transesophageal echocardiogram. Graft flow measurement using the [employer] system. Lysis of adhesions. Postoperative acute blood loss anemia, and expected outcome of surgery given cardiopulmonary bypass. Patient's currently sitting up in a recliner in no acute distress. States sternal pain is controlled on current medication regimen. No other complaints at this time. Was started on low-dose levo yesterday. Hemoglobin 6.4 this morning, will repeat. No transfusion at this time as patient is stable and we feel this is partially dilutional. Will need Lasix in the future once off levofed. Objective - Vital Signs Vital signs: Vital Signs Temp 98.4 F 01/28/18 08:00 Pulse 90 01/29/18 08:00 Resp 21 01/29/18 08:00 BP 111/35 01/27/18 23:30 Pulse Ox 100 01/29/18 08:00 Intake & Output 01/28/18 01/29/18 01/29/18 18:59 06:59 18:59 Intake Total 633.322 2687.984 64.833 Output Total 598 940 85 Balance -6.664 194.984 -20.167 Weight 136.1 kg Intake: IV 538 589 39 LR 390 330 30 NS pressure bag 108 99 9 cardiac output 40 110 ceFAZolin 3 gm In Sodium 50 Chloride 0.9% 50 ml @ 50 mls/hr IVPB Q8HR [facility] Rx#: [id number] Intake, IV Titration 53.336 45.984 25.833 Amount Insulin Regular 100 unit 50.898 45.984 25.833 In Sodium Chloride 0.9% 100 ml @ Per Protocol IV .Q0M MI Rx#:[id number] Norepinephrin 16 mg-0.9% 2.438 Ns Pmx 16 mg In 250 ml @ Titrate IV .Q0M [facility] Rx#: [id number] Oral 500 Output: Chest Tube Drainage 240 170 10 Chest Tube Bilateral 120 100 0 Mediastinal Pleural Catheter 120 70 10 Bilateral Drainage 20 Left Calf 20 Urine 338 770 75 Other: Voiding Method Indwelling Catheter Indwelling Catheter ABP, PAP, CO, CI - Last Documented Arterial Blood Pressure 130/39 Pulmonary Artery Pressure 33/8 Cardiac Output 8.5 Cardiac Index 3.7 - Constitutional General appearance: Present: cooperative, no acute distress, obese - Respiratory Details: Lungs sounds diminished bilaterally. Respirations even, nonlabored. Currently on 2 L nasal cannula with oxygen saturation 99%. Able to achieve 1500 mL on her incentive spirometry. Mediastinal chest tubes to continuous wall suction, 50 mL serosanguineous drainage overnight, 230 mL last 24 hours. Left/right pleural chest tube to continuous wall suction, 40 mL thin serosanguineous drainage overnight, 240 mL last 24 hours. No air leak present. - Cardiovascular Details: S1, S2 present. Regular rate and rhythm, sinus rhythm on telemetry. Essentially epicardial pacemaker wires present, guarded. Sternum stable. Palpable peripheral pulses bilaterally. Trace bilateral lower extremity edema present. No calf pain or tenderness noted. Right IJ Elbridge/Cordis, right radial arterial line present. Last CO/CI 8.5/3.0. Currently on levofed at 3 mics, titrating down. Heart hugger in place with patient demonstrating appropriate use. Antiembolism seconds, SCDs present. - Gastrointestinal Gastrointestinal Comment(s): Abdomen soft, nontender, nondistended, obese. Active bowel sounds present 4 quadrants. Negative flatus, positive burping. Tolerating diet. - Genitourinary Genitourinary Comment(s): Mark present draining clear, yellow urine. Output 45-90 mL/h overnight. - Integumentary Integumentary Comment(s): Skin is warm and dry with evidence of good perfusion. Anterior chest incision well approximated with dry intact dressing. Left lower extremity EVH site well approximated, NAREN drain in place with minimal drainage. - Neurologic Neurologic: Present: CNII-XII intact - Musculoskeletal Musculoskeletal: Present: gait normal, strength equal bilaterally - Psychiatric Psychiatric: Present: A&O x's 3, appropriate affect, intact judgment & insight - Allied health notes Allied health notes reviewed: nursing - Labs CBC & Chem 7: 01/29/18 04:45 01/29/18 04:45 Labs: Abnormal Lab Results - Last 24 Hours (Table) 01/28/18 01/28/18 01/28/18 Range/Units 09:18 10:15 11:14 RBC (3.80-5.40) m/uL Hgb (11.4-16.0) gm/dL Hct (34.0-46.0) % Chloride (98-107) mmol/L POC Glucose (mg/dL) 158 H 205 H 165 H (75-99) mg/dL Calcium (8.4-10.2) mg/dL Total Protein (6.3-8.2) g/dL Albumin (3.5-5.0) g/dL 01/28/18 01/28/18 01/28/18 Range/Units 12:13 13:02 14:01 RBC (3.80-5.40) m/uL Hgb (11.4-16.0) gm/dL Hct (34.0-46.0) % Chloride (98-107) mmol/L POC Glucose (mg/dL) 146 H 158 H 159 H (75-99) mg/dL Calcium (8.4-10.2) mg/dL Total Protein (6.3-8.2) g/dL Albumin (3.5-5.0) g/dL 01/28/18 01/28/18 01/28/18 Range/Units 15:17 16:06 17:07 RBC (3.80-5.40) m/uL Hgb (11.4-16.0) gm/dL Hct (34.0-46.0) % Chloride (98-107) mmol/L POC Glucose (mg/dL) 150 H 135 H 119 H (75-99) mg/dL Calcium (8.4-10.2) mg/dL Total Protein (6.3-8.2) g/dL Albumin (3.5-5.0) g/dL 01/28/18 01/28/18 01/28/18 Range/Units 18:04 19:01 20:29 RBC (3.80-5.40) m/uL Hgb (11.4-16.0) gm/dL Hct (34.0-46.0) % Chloride (98-107) mmol/L POC Glucose (mg/dL) 103 H 168 H 166 H (75-99) mg/dL Calcium (8.4-10.2) mg/dL Total Protein (6.3-8.2) g/dL Albumin (3.5-5.0) g/dL 01/28/18 01/29/18 01/29/18 Range/Units 22:08 01:11 02:08 RBC (3.80-5.40) m/uL Hgb (11.4-16.0) gm/dL Hct (34.0-46.0) % Chloride (98-107) mmol/L POC Glucose (mg/dL) 128 H 146 H 140 H (75-99) mg/dL Calcium (8.4-10.2) mg/dL Total Protein (6.3-8.2) g/dL Albumin (3.5-5.0) g/dL 01/29/18 01/29/18 01/29/18 Range/Units 03:18 04:45 04:45 RBC 1.98 L (3.80-5.40) m/uL Hgb 6.4 L* (11.4-16.0) gm/dL Hct 19.2 L* (34.0-46.0) % Chloride 108 H (98-107) mmol/L POC Glucose (mg/dL) 122 H (75-99) mg/dL Calcium 8.1 L (8.4-10.2) mg/dL Total Protein 4.9 L (6.3-8.2) g/dL Albumin 2.6 L (3.5-5.0) g/dL 01/29/18 01/29/18 Range/Units 06:31 08:12 RBC (3.80-5.40) m/uL Hgb (11.4-16.0) gm/dL Hct (34.0-46.0) % Chloride (98-107) mmol/L POC Glucose (mg/dL) 120 H 152 H (75-99) mg/dL Calcium (8.4-10.2) mg/dL Total Protein (6.3-8.2) g/dL Albumin (3.5-5.0) g/dL - Imaging and Cardiology Chest x-ray: image reviewed Assessment and Plan (1) History of coronary artery disease Current Visit: Yes Status: Chronic Code(s): Z86.79 - PERSONAL HISTORY OF OTHER DISEASES OF THE CIRCULATORY SYSTEM SNOMED Code(s): 467877605 (2) Hyperlipidemia Current Visit: Yes Status: Chronic Code(s): E78.5 - HYPERLIPIDEMIA, UNSPECIFIED SNOMED Code(s): 74638174 (3) Hypertension Current Visit: Yes Status: Chronic Code(s): I10 - ESSENTIAL (PRIMARY) HYPERTENSION SNOMED Code(s): 13083325 (4) Morbid obesity with BMI of 40.0-44.9, adult Current Visit: Yes Status: Chronic Code(s): E66.01 - MORBID (SEVERE) OBESITY DUE TO EXCESS CALORIES; Z68.41 - BODY MASS INDEX (BMI) 40.0-44.9, ADULT SNOMED Code(s): 220509267 (5) Non-STEMI (non-ST elevated myocardial infarction) Current Visit: Yes Status: Acute Code(s): I21.4 - NON-ST ELEVATION (NSTEMI) MYOCARDIAL INFARCTION SNOMED Code(s): 807304139 (6) Diabetes mellitus Current Visit: Yes Status: Chronic Code(s): E11.9 - TYPE 2 DIABETES MELLITUS WITHOUT COMPLICATIONS SNOMED Code(s): 26789354 (7) Left main coronary artery disease Current Visit: Yes Status: Chronic Code(s): I25.10 - ATHSCL HEART DISEASE OF [place] CORONARY ARTERY W/O ANG PCTRS SNOMED Code(s): 042016410 (8) Tobacco dependence in remission Current Visit: No Status: Resolved Code(s): F17.201 - NICOTINE DEPENDENCE, UNSPECIFIED, IN REMISSION SNOMED Code(s): 037310671 (9) Carotid stenosis, left Current Visit: Yes Status: Chronic Code(s): I65.22 - OCCLUSION AND STENOSIS OF LEFT CAROTID ARTERY SNOMED Code(s): 942228219806581 Plan: 1. Continue aspirin, statin, Plavix, subcu heparin, beta kris. Will increase beta kris as tolerated. 2. Wean Levophed as tolerated. 3. Discontinue Elbridge. Cordis to continue CVP monitoring. 4. Wean O2 as tolerated. Encourage incentive spirometry. Encourage continued smoking cessation. 5. GI/DVT prophylaxis. 6. Increase activity, ambulate in room. PT/OT/Cardiac rehab following. 7. Will monitor daily labs and x-rays. No transfusion this morning. 8. Insulin drip/diabetic management per primary care service. 9. Will discontinue mediastinal chest tubes. 10. More recommendations to follow. Time with Patient: Greater than 30
[2018-01-29] MEDS: ASPIRIN 81 MG PO SCH (08:53)
[2018-01-29] MEDS: CITALOPRAM HYDROBROMIDE 20 MG TAB PO SCH (08:54)
[2018-01-29] MEDS: ATORVASTATIN 40 MG TAB PO SCH (08:54)
[2018-01-29] MEDS: IPRATROPIUM-ALBUTEROL 3 ML NEB INHALATION SCH ×4 (09:02→20:15)
--- NOTE | 2018-01-29 09:21 | P.PN ---
Progress Note - Text The patient is a 67-year-old female who is presently in the intensive care unit after 2 days ago undergoing coronary artery bypass surgery. The patient had left main and triple-vessel disease. She is sitting in a chair in her room with her next to her. She is alert and oriented. She denies any unusual pain or nausea or vomiting. She does not appear to be in any acute distress. Vital signs reveal a pulse of 82 with respirations 21 and blood pressure 130/39 apparently on a small dose of levofed. CVP is 2. And she is 100% saturated on 2 L nasal cannula. She is alert and oriented. Moving all extremities without focal weakness. Respirations are unlabored. Pneumatic stockings in place in the lower extremity. Laboratory White count is 8.2 with a hemoglobin of 6.5 and a platelet count of 181. Blood sugars have ranged down to 98 and up to 152. Sodium is 141 with potassium 4.0. BUN is 14 with a creatinine of 0.9 given her a GFR of 67. Albumin is low at 2.6 with a total protein of 4.9. Other liver function testing with enzymes are good. Chest x-ray to my eyes appears stable and better than yesterday's. Impressions and plans She does have postop blood loss anemia as expected. Appears to be tolerating. Notes from cardiology and pulmonary medicine reviewed. Overall patient is doing well post coronary artery bypass surgery with comorbidities related to her underlying obesity, diabetes, hypertension and hyperlipidemia. Continue to progress as per cardiology and pulmonary medicine and surgery. Discussed with nursing staff along with patient and at bedside. Dr. Chang on medical call for me today if any concerns or problems should arise.
[2018-01-29 10:11] LABS: Glucose,Whole Blood 131 mg/dL (75-99)
[2018-01-29 11:37] LABS: Glucose,Whole Blood 96 mg/dL (75-99)
[2018-01-29] MEDS ORDERED: FUROSEMIDE 10 MG/ML 2 ML VIAL IV ONE (11:40)
--- NOTE | 2018-01-29 12:54 | P.PN ---
Subjective Progress Note Date: 01/29/18 Principal diagnosis: Status post open heart This is a pleasant 67-year-old female patient who presented to the hospital with a chest discomfort and ruled in for acute non-ST elevation myocardial infarction. She underwent a heart catheterization by Dr. Brady and was found to have severe left main disease. She underwent CABG 3 with CUMMINGS to LAD, SVG to PDA, and SVG to OM. I'll follow-up with her today, she seems to be doing better. Hemodynamically she is stable. She is on dual antiplatelet therapy along with beta kris as well as statin. The blood work from today shows a hemoglobin around 6.5 but they would like to wait on any blood transfusion at this point. Objective - Vital Signs Vital signs: Vital Signs Temp 98.4 F 01/28/18 08:00 Pulse 78 01/29/18 11:55 Resp 20 01/29/18 11:30 BP 111/35 01/27/18 23:30 Pulse Ox 99 01/29/18 11:30 Intake & Output 01/28/18 01/29/18 01/29/18 18:59 06:59 18:59 Intake Total 919.020 4592.984 460.764 Output Total 598 940 320 Balance -6.664 194.984 140.764 Weight 136.1 kg Intake: IV 538 589 127 LR 390 330 100 NS pressure bag 108 99 27 cardiac output 40 110 ceFAZolin 3 gm In Sodium 50 Chloride 0.9% 50 ml @ 50 mls/hr IVPB Q8HR [facility] Rx#: [id number] Intake, IV Titration 53.336 45.984 93.764 Amount Insulin Regular 100 unit 50.898 45.984 46.483 In Sodium Chloride 0.9% 100 ml @ Per Protocol IV .Q0M [facility] Rx#:[id number] Norepinephrin 16 mg-0.9% 2.438 47.281 Ns Pmx 16 mg In 250 ml @ Titrate IV .Q0M [facility] Rx#: [id number] Oral 500 240 Output: Chest Tube Drainage 240 170 80 Chest Tube Bilateral 120 100 50 Mediastinal Pleural Catheter 120 70 30 Bilateral Drainage 20 20 Left Calf 20 20 Urine 338 770 220 Other: Voiding Method Indwelling Catheter Indwelling Catheter Indwelling Catheter ABP, PAP, CO, CI - Last Documented Arterial Blood Pressure 127/38 Pulmonary Artery Pressure 29/7 Cardiac Output 8.5 Cardiac Index 3.7 - Constitutional General appearance: Present: no acute distress - Respiratory Respiratory: bilateral: diminished - Cardiovascular Rhythm: regular Heart sounds: normal: S1, S2 - Labs CBC & Chem 7: 01/29/18 08:31 01/29/18 04:45 Labs: Abnormal Lab Results - Last 24 Hours (Table) 01/28/18 01/28/18 01/28/18 Range/Units 13:02 14:01 15:17 RBC (3.80-5.40) m/uL Hgb (11.4-16.0) gm/dL Hct (34.0-46.0) % Chloride (98-107) mmol/L POC Glucose (mg/dL) 158 H 159 H 150 H (75-99) mg/dL Calcium (8.4-10.2) mg/dL Total Protein (6.3-8.2) g/dL Albumin (3.5-5.0) g/dL 01/28/18 01/28/18 01/28/18 Range/Units 16:06 17:07 18:04 RBC (3.80-5.40) m/uL Hgb (11.4-16.0) gm/dL Hct (34.0-46.0) % Chloride (98-107) mmol/L POC Glucose (mg/dL) 135 H 119 H 103 H (75-99) mg/dL Calcium (8.4-10.2) mg/dL Total Protein (6.3-8.2) g/dL Albumin (3.5-5.0) g/dL 01/28/18 01/28/18 01/28/18 Range/Units 19:01 20:29 22:08 RBC (3.80-5.40) m/uL Hgb (11.4-16.0) gm/dL Hct (34.0-46.0) % Chloride (98-107) mmol/L POC Glucose (mg/dL) 168 H 166 H 128 H (75-99) mg/dL Calcium (8.4-10.2) mg/dL Total Protein (6.3-8.2) g/dL Albumin (3.5-5.0) g/dL 01/29/18 01/29/18 01/29/18 Range/Units 01:11 02:08 03:18 RBC (3.80-5.40) m/uL Hgb (11.4-16.0) gm/dL Hct (34.0-46.0) % Chloride (98-107) mmol/L POC Glucose (mg/dL) 146 H 140 H 122 H (75-99) mg/dL Calcium (8.4-10.2) mg/dL Total Protein (6.3-8.2) g/dL Albumin (3.5-5.0) g/dL 01/29/18 01/29/18 01/29/18 Range/Units 04:45 04:45 06:31 RBC 1.98 L (3.80-5.40) m/uL Hgb 6.4 L* (11.4-16.0) gm/dL Hct 19.2 L* (34.0-46.0) % Chloride 108 H (98-107) mmol/L POC Glucose (mg/dL) 120 H (75-99) mg/dL Calcium 8.1 L (8.4-10.2) mg/dL Total Protein 4.9 L (6.3-8.2) g/dL Albumin 2.6 L (3.5-5.0) g/dL 01/29/18 01/29/18 01/29/18 Range/Units 08:12 08:31 10:10 RBC 2.03 L (3.80-5.40) m/uL Hgb 6.5 L* (11.4-16.0) gm/dL Hct 19.6 L* (34.0-46.0) % Chloride (98-107) mmol/L POC Glucose (mg/dL) 152 H 131 H (75-99) mg/dL Calcium (8.4-10.2) mg/dL Total Protein (6.3-8.2) g/dL Albumin (3.5-5.0) g/dL Assessment and Plan Assessment: Assessment #1 severe underlying CAD and status post CABG as described above Plan #1 continue the current medical treatment which included dual antiplatelet as well as statin and beta kris #2 monitor the kidney function and electrolytes as well as a hemoglobin #3 continue following up with the patient
--- NOTE | 2018-01-29 13:02 | P.PN ---
Subjective Progress Note Date: 01/29/18 67-year-old female patient with known history of coronary artery disease and previous VT back in 2013 in addition to left internal carotid artery stenosis approximately 50-79% based on ultrasound in addition to history of smoking which she quit more than 30 years ago. The patient has other comorbidities including hypertension and hyperlipidemia and obesity. The patient came into the hospital because of chest tightness and pain radiating to her jaw. She was also feeling nauseated and she had a bout of emesis. She ruled in for acute VT. The troponin was elevated and the highest was at 15.4. Based on that a cardiac catheterization was done and it showed a 60% stenosis of the left main, 95% stenosis of the right coronary artery, totally occluded circumflex coronary artery, 90% stenosis of the proximal left anterior descending, 60% stenosis in the mid anterior descending. The LV angiogram showed a normal ejection fraction of 60%. The patient was kept on IV heparin. She is currently being evaluated for cardiac bypass surgery. This is being considered yet is currently on hold knowing that the patient has taken Plavix. Follow pulmonary standpoint, the patient may have an underlying COPD although this has not been officially diagnosed. Her FEV1 was measured to be at around 35%. This was a suboptimal effort. She claims that she is able to climb a flight of stairs with some limited difficulties. No cough. No sputum production. No hemoptysis. Pleurisy. No swelling lower extremities. No recurrent pneumonias. No reported history of any obstructive sleep apnea. No asthma during childhood. No previous history of DVT and pulmonary embolism. Chest x- ray shows no evidence of any lung masses or lesions. Pulse ox on room air is 97 %. On the I'm seeing Abril for a follow-up. The patient is ready for bypass surgery tomorrow. She repeated her spirometry and she did much better and her FEV1 essentially normalized. I think the initial one was a suboptimal study. Meanwhile, she remains free of any chest pain. No cough or sputum production. No fever chills or night sweats. No other complaints otherwise for now. For the most part she is ready for coronary artery bypass surgery to be done tomorrow by Dr. Perera. On 01/27/2018 the patient is being seen immediately after her coronary artery bypass surgery. The patient underwent three-vessel bypass. Currently she is postop day #0. She is currently intubated on a mechanical ventilator. I have an assist-control of 18, tidal volume 500 with an FiO2 of 100% and a PEEP of 5. Chest x-ray and blood gases are still pending for now. Meanwhile, the patient is sedated with Diprivan and currently is on 20 mics of the prevent for sedation. She is very symptoms with the mechanical ventilator. Hemodynamically stable. She required some Musa-Synephrine postop currently she is off pressors. Her cardiac index is at 1.9. Pulmonary artery pressures are nonelevated. She is producing adequate amount of urine output. The patient has 2 mediastinal chest tubes, 1 pleural on the right and 1 pleural on the left chest tubes. Output is being also closely monitored. The patient is also paced , DDD, at the rate of 80 and her underlying rhythm is sinus at a low rate probably in the mid 50s. Pacing was performed to augment her cardiac output. No other significant events postop. We'll be awaiting for the blood gases and the chest x-ray we'll proceed with further weaning on the FiO2 and and anticipate weaning and extubation probably within next 6 hours. She is also on insulin drip for blood sugar control. He required a total of 5 units of platelet transfusion intraoperatively. On 01/28/2018 I'm seeing this patient for a follow-up. The patient has undergone coronary artery bypass surgery and the patient is postop day #1. She was extubated within 6 hours of being brought into the intensive care unit. This morning, she is in oxygen by nasal cannula and sitting up on a chair and she is calm and comfortable. The patient has 2 mediastinal chest tubes and the patient is a right pleural and left pleural chest tube. The patient underwent three-vessel bypass surgery. Output from the chest tubes are low in general. The pleural chest tubes and drained 80 mL this morning and immediately felt chest tubes have drained approximately 30 mL. The patient is hemodynamically stable on no pressors. Vitals are all stable. [place]-Ethan catheter will be taken out today. Cardiac output is above 8. Pulmonary artery pressure is none elevated. Patient is producing adequate amount of urine output. She remains on incentive for blood sugar control. Sternal stable clean and intact. She is receiving adequate pain control. No other significant events overnight. She is awake and alert. Following commands and answering questions. Hemoglobin from today is at 7.5. On 1017 the patient is looking well. Overnight she had some issues with hypotension and the [place]-Ethan catheter was kept in place. She received a total of 500 mL of albumin. She was briefly placed on pressors and she is currently off pressors. Hemoglobin is down to 6.5. Cardiothoracic surgery is aware and there are no plans to transfuse this patient. The Lequire tubes are showing low output and these to his will be removed today. The patient is postop day # 2. Pleural catheters and she was will be kept in place. [place]-Ethan catheter will be removed. She is not having any significant chest pain. No cough or sputum production. Pulling approximately 1000 on incentive spirometer. Still on insulin drip for blood sugar control. Sternum stable clean and intact. No other significant events otherwise for now and will continue to follow. Objective - Vital Signs Vital signs: Vital Signs Temp 98.4 F 01/28/18 08:00 Pulse 78 01/29/18 11:55 Resp 20 01/29/18 11:30 BP 111/35 01/27/18 23:30 Pulse Ox 99 01/29/18 11:30 Intake & Output 01/28/18 01/29/18 01/29/18 18:59 06:59 18:59 Intake Total 179.000 4362.984 460.764 Output Total 598 940 320 Balance -6.664 194.984 140.764 Weight 136.1 kg Intake: IV 538 589 127 LR 390 330 100 NS pressure bag 108 99 27 cardiac output 40 110 ceFAZolin 3 gm In Sodium 50 Chloride 0.9% 50 ml @ 50 mls/hr IVPB Q8HR MI Rx#: [id number] Intake, IV Titration 53.336 45.984 93.764 Amount Insulin Regular 100 unit 50.898 45.984 46.483 In Sodium Chloride 0.9% 100 ml @ Per Protocol IV .Q0M MI Rx#:[id number] Norepinephrin 16 mg-0.9% 2.438 47.281 Ns Pmx 16 mg In 250 ml @ Titrate IV .Q0M MI Rx#: [id number] Oral 500 240 Output: Chest Tube Drainage 240 170 80 Chest Tube Bilateral 120 100 50 Mediastinal Pleural Catheter 120 70 30 Bilateral Drainage 20 20 Left Calf 20 20 Urine 338 770 220 Other: Voiding Method Indwelling Catheter Indwelling Catheter Indwelling Catheter ABP, PAP, CO, CI - Last Documented Arterial Blood Pressure 127/38 Pulmonary Artery Pressure 29/7 Cardiac Output 8.5 Cardiac Index 3.7 - Exam - Constitutional General appearance: Present: cooperative, no acute distress, obese - Respiratory Details: Lungs sounds diminished bilaterally. Respirations even, nonlabored. Currently on 2 L nasal cannula with oxygen saturation 99%. Able to achieve 1500 mL on her incentive spirometry. Mediastinal chest tubes to continuous wall suction, 50 mL serosanguineous drainage overnight, 230 mL last 24 hours. Left/right pleural chest tube to continuous wall suction, 40 mL thin serosanguineous drainage overnight, 240 mL last 24 hours. No air leak present. - Cardiovascular Details: S1, S2 present. Regular rate and rhythm, sinus rhythm on telemetry. Essentially epicardial pacemaker wires present, guarded. Sternum stable. Palpable peripheral pulses bilaterally. Trace bilateral lower extremity edema present. No calf pain or tenderness noted. Right IJ [place]/Cordis, right radial arterial line present. Last CO/CI 8.5/3.0. Currently on levofed at 3 mics, titrating down. Heart hugger in place with patient demonstrating appropriate use. Antiembolism seconds, SCDs present. - Gastrointestinal Gastrointestinal Comment(s): Abdomen soft, nontender, nondistended, obese. Active bowel sounds present 4 quadrants. Negative flatus, positive burping. Tolerating diet. - Genitourinary Genitourinary Comment(s): Mark present draining clear, yellow urine. Output 45-90 mL/h overnight. - Integumentary Integumentary Comment(s): Skin is warm and dry with evidence of good perfusion. Anterior chest incision well approximated with dry intact dressing. Left lower extremity EVH site well approximated, NAREN drain in place with minimal drainage. - Neurologic Neurologic: Present: CNII-XII intact - Musculoskeletal Musculoskeletal: Present: gait normal, strength equal bilaterally - Psychiatric Psychiatric: Present: A&O x's 3, appropriate affect, intact judgment & insight - Labs CBC & Chem 7: 01/29/18 08:31 01/29/18 04:45 Labs: Abnormal Lab Results - Last 24 Hours (Table) 03/31/18 03/31/18 03/31/18 Range/Units 13:02 14:01 15:17 RBC (3.80-5.40) m/uL Hgb (11.4-16.0) gm/dL Hct (34.0-46.0) % Chloride (98-107) mmol/L POC Glucose (mg/dL) 158 H 159 H 150 H (75-99) mg/dL Calcium (8.4-10.2) mg/dL Total Protein (6.3-8.2) g/dL Albumin (3.5-5.0) g/dL 01/28/18 01/28/18 01/28/18 Range/Units 16:06 17:07 18:04 RBC (3.80-5.40) m/uL Hgb (11.4-16.0) gm/dL Hct (34.0-46.0) % Chloride (98-107) mmol/L POC Glucose (mg/dL) 135 H 119 H 103 H (75-99) mg/dL Calcium (8.4-10.2) mg/dL Total Protein (6.3-8.2) g/dL Albumin (3.5-5.0) g/dL 01/28/18 01/28/18 01/28/18 Range/Units 19:01 20:29 22:08 RBC (3.80-5.40) m/uL Hgb (11.4-16.0) gm/dL Hct (34.0-46.0) % Chloride (98-107) mmol/L POC Glucose (mg/dL) 168 H 166 H 128 H (75-99) mg/dL Calcium (8.4-10.2) mg/dL Total Protein (6.3-8.2) g/dL Albumin (3.5-5.0) g/dL 01/29/18 01/29/18 01/29/18 Range/Units 01:11 02:08 03:18 RBC (3.80-5.40) m/uL Hgb (11.4-16.0) gm/dL Hct (34.0-46.0) % Chloride (98-107) mmol/L POC Glucose (mg/dL) 146 H 140 H 122 H (75-99) mg/dL Calcium (8.4-10.2) mg/dL Total Protein (6.3-8.2) g/dL Albumin (3.5-5.0) g/dL 01/29/18 01/29/18 01/29/18 Range/Units 04:45 04:45 06:31 RBC 1.98 L (3.80-5.40) m/uL Hgb 6.4 L* (11.4-16.0) gm/dL Hct 19.2 L* (34.0-46.0) % Chloride 108 H (98-107) mmol/L POC Glucose (mg/dL) 120 H (75-99) mg/dL Calcium 8.1 L (8.4-10.2) mg/dL Total Protein 4.9 L (6.3-8.2) g/dL Albumin 2.6 L (3.5-5.0) g/dL 01/29/18 01/29/18 01/29/18 Range/Units 08:12 08:31 10:10 RBC 2.03 L (3.80-5.40) m/uL Hgb 6.5 L* (11.4-16.0) gm/dL Hct 19.6 L* (34.0-46.0) % Chloride (98-107) mmol/L POC Glucose (mg/dL) 152 H 131 H (75-99) mg/dL Calcium (8.4-10.2) mg/dL Total Protein (6.3-8.2) g/dL Albumin (3.5-5.0) g/dL Assessment and Plan Plan: Assessment 1 multivessel coronary artery disease status post acute non-ST segment elevation myocardial infarction, the patient has undergone three-vessel bypass surgery, patient is postop day #2 he had the patient had some postoperative hypotension which improved and currently she is on no pressors doing well and currently stable. 2 post thoracotomy mechanical ventilation, and expected outcome following bypass surgery. The patient was extubated without any major difficulties and currently she is recovering well with a chest x-ray from today showing adequate expansion of both lungs and the chest tubes are all in place with diminished output. No evidence of any air leak. The output from the mediastinal chest tubes are minimal and this can be removed for now. 3 COPD, inactive in stable 4 diabetes mellitus, currently on insulin drip for blood sugar control 5 diabetic retinopathy and glaucoma 6 hypertension 7 hyperlipidemia 8 preserved LV function with a normal ejection fraction of 60% 9 left internal carotid artery stenosis estimated to be around 50-79% 10 fibromyalgia 11 acid reflux 12 degenerative arthritis 13 anemia, and expected outcome of bypass surgery. Plan Continue aspirin and Plavix and beta blockers. Patient has been weaned off the levo fed and pressors. Remove the [place]-Ethan catheter today. Remove the mediastinal chest tubes.. Keep the insulin drip for today. We'll continue to follow the pleural chest tubes. Patient will be kept in ICU. Discussed the case with cardiothoracic surgery. Will not transfuse at a hemoglobin of 6.5 and will monitor this patient clinically.
[2018-01-29 14:08] LABS: Glucose,Whole Blood 186 mg/dL (75-99)
--- NOTE | 2018-01-29 14:18 | XR ---
EXAMINATION TYPE: XR chest 1V DATE OF EXAM: 01/29/2018 HISTORY: Post-op CABG. REFERENCE: Previous study dated 01/28/2018. FINDINGS: There has been a midline sternotomy. There is a [place]-Ethan catheter in place via a right int ernal jugular approach. Its tip is in the right interlobar artery. There are bilateral pleural drains in place. The heart is enlarged. There is left basilar airspace disease. There is a left-sided effusion and a s maller right effusion. There is an unusual opacity in the left upper chest. This may be artifactual. I do not see evidence of pneumothorax. IMPRESSION: 1. CONTINUING POSTOPERATIVE CHANGE. 2. UNUSUAL OPACITY IN THE LEFT UPPER LOBE. REPEAT EXAMINATION MAY BE WORTHWHILE.
[2018-01-29 16:05] LABS: Glucose,Whole Blood 195 mg/dL (75-99)
[2018-01-29] MEDS: LACTATED RINGERS 1,000 ML IV SCH (18:08)
[2018-01-29 18:09] LABS: Glucose,Whole Blood 139 mg/dL (75-99)
[2018-01-29] MEDS: INSULIN REGULAR 100 UNIT in SODIUM CHLORIDE 0.9% 100 ML IV SCH (18:09)
[2018-01-29 19:54] LABS: Glucose,Whole Blood 143 mg/dL (75-99)
[2018-01-29] MEDS: MONTELUKAST 10 MG TAB PO SCH (20:00)
[2018-01-29] MEDS: SENNOSIDES-DOCUSATE SODIUM 1 EACH TAB PO SCH (20:00)
[2018-01-29 22:07] LABS: Glucose,Whole Blood 107 mg/dL (75-99)
[2018-01-29 23:12] LABS: Glucose,Whole Blood 105 mg/dL (75-99)
[2018-01-30 00:01] LABS: Glucose,Whole Blood 96 mg/dL (75-99)
[2018-01-30] MEDS: HYDROcodone/APAP 5-325MG 1 EACH TAB PO PRN ×2 (00:06→19:11)
[2018-01-30 01:14] LABS: Glucose,Whole Blood 128 mg/dL (75-99)
[2018-01-30 03:20] LABS: Glucose,Whole Blood 148 mg/dL (75-99)
[2018-01-30 04:14] LABS: Glucose,Whole Blood 135 mg/dL (75-99)
[2018-01-30 04:39] LABS: Basophils % (A) 0 %; Eosinophils # (A) 0.2 k/uL (0-0.7); Eosinophils % (A) 3 %; Lymphocytes # (A) 0.9 k/uL (1.0-4.8); Lymphocytes % (A) 10 %; MCH 32.2 pg (25.0-35.0); MCHC 33.3 g/dL (31.0-37.0); MCV 96.8 fL (80.0-100.0); Mean Platelet Volume 7.6; Monocytes # (A) 0.3 k/uL (0-1.0); Monocytes % (A) 3 %; Neutrophils # (A) 7.1 k/uL (1.3-7.7); Neutrophils % (A) 83 %; Platelet Count 186 k/uL (150-450); RBC 1.86 m/uL (3.80-5.40); RDW 14.1 % (11.5-15.5); WBC 8.5 k/uL (3.8-10.6)
[2018-01-30 04:48] LABS: Albumin 2.4 g/dL (3.5-5.0); Calcium 8.1 mg/dL (8.4-10.2); Magnesium 2.2 mg/dL (1.6-2.3); Phosphorus 3.1 mg/dL (2.5-4.5); Potassium 4.2 mmol/L (3.5-5.1); Total Bilirubin 0.4 mg/dL (0.2-1.3); Total Protein 4.7 g/dL (6.3-8.2)
[2018-01-30 05:52] LABS: Glucose,Whole Blood 102 mg/dL (75-99)
[2018-01-30 06:51] LABS: Glucose,Whole Blood 105 mg/dL (75-99)
[2018-01-30] MEDS: KETOROLAC 30 MG/ML 1 ML VIAL IVP SCH (06:52)
--- NOTE | 2018-01-30 08:10 | XR ---
EXAMINATION TYPE: XR chest 1V DATE OF EXAM: 01/30/2018 COMPARISON: 01/29/2018 HISTORY: Post CABG TECHNIQUE: Single frontal view of the chest is obtained. FINDINGS: Postsurgical changes noted with bilateral consolidation and pleural effusion. [place]-Ethan ca theter and chest tube have been removed. No sizable pneumothorax on today's exam. Mild central venous congestion not excluded. IMPRESSION: Bilateral infiltrate and pleural effusion. Correlate for mild central venous congestion.
[2018-01-30] MEDS: IPRATROPIUM-ALBUTEROL 3 ML NEB INHALATION SCH ×4 (08:19→20:20)
[2018-01-30 08:20] LABS: Glucose,Whole Blood 124 mg/dL (75-99)
--- NOTE | 2018-01-30 08:32 | P.PN ---
Progress Note - Text The patient is a 67-year-old female who has undergone coronary artery bypass surgery 3 days previous after she presented with a non-Q-wave myocardial infarction and left main disease associated with triple-vessel disease. Postoperatively she generally has been doing well. Presently she is sitting up at the side of the bed. She is alert and oriented. Pulses in the 80s and regular with a respiratory rate of 12 blood pressure ranging from 90-111 systolic. And she is 99% saturated on 2 L. Last recorded temperature was 99.1. Lungs are somewhat diminished at bases. Her venous compression appliances intact. She is alert and oriented without focal neurological changes. Laboratory Hemoglobin this morning was 6.0 with a white count of 8.5 and a platelet count of 186. BUN is 18 with creatinine of 0.95 given her GFR 63. Electrolytes were normal with potassium of 4.2. Her blood sugar has been in the low 100 range. Albumin is 2.4 with a total protein of 4.7. Chest x-ray shows bilateral infiltrates and pleural effusion consistent with some mild central venous congestion. Impressions and plans: This patient is status post coronary artery bypass surgery. She is to receive transfusion of blood due to her hemoglobin being down to 6.0 today. Discussed with nursing regarding her diabetes and plans are to put her on the 3 shot insulin protocol. Once she is eating better and moving on the cardiac floor she can be adjusted to back to her home diabetic medications. We will await further recommendations from surgery, pulmonary and cardiology.
--- NOTE | 2018-01-30 08:33 | P.PN ---
Subjective Progress Note Date: 01/30/18 Principal diagnosis: Severe coronary artery disease including left main stenosis of 60%, NSTEMI. Previous medical history of coronary artery disease with previous myocardial infarction 2013, hypertension, hyperlipidemia, fibromyalgia, depression, left carotid stenosis greater than 70%, previous tobacco dependence with the current FEV1 of 104% predicted, obesity with history of lap band surgery, renal failure with 2 treatments of hemodialysis, GERD, and diabetes mellitus type tube with current hemoglobin A1c of 7.1%. POD #3 urgent coronary artery bypass grafting 3 vessels, left internal mammary artery to left anterior descending artery, reverse saphenous vein graft to the posterior descending artery, reverse saphenous vein graft to the distal obtuse marginal artery. Endoscopic vein harvesting of the left greater saphenous vein. Epi-aortic ultrasound. Intraoperative transesophageal echocardiogram. Graft flow measurement using the [employer] system. Lysis of adhesions. Postoperative acute blood loss anemia, and expected outcome of surgery given cardiopulmonary bypass. Patient's currently sitting up in a recliner in no acute distress. States sternal pain is controlled on current medication regimen. No other complaints at this time. Hemoglobin 6.0 this morning, will transfuse 1 unit PRBCs. Levophed discontinued yesterday, patient remains stable. Objective - Vital Signs Vital signs: Vital Signs Temp 99.1 F 01/30/18 04:00 Pulse 87 01/30/18 07:00 Resp 12 01/30/18 07:00 BP 111/35 01/27/18 23:30 Pulse Ox 99 01/30/18 07:00 Intake & Output 01/29/18 01/30/18 01/30/18 18:59 06:59 18:59 Intake Total 1373.297 344.775 26 Output Total 920 405 25 Balance 453.297 -60.225 1 Intake: IV 311 276 26 LR 260 240 20 NS pressure bag 51 36 6 Intake, IV Titration 102.297 48.775 Amount Insulin Regular 100 unit 55.016 48.775 In Sodium Chloride 0.9% 100 ml @ Per Protocol IV .Q0M MI Rx#:[id number] Norepinephrin 16 mg-0.9% 47.281 Ns Pmx 16 mg In 250 ml @ Titrate IV .Q0M MI Rx#: [id number] Oral 960 20 Output: Chest Tube Drainage 80 Chest Tube Bilateral 50 Mediastinal Pleural Catheter 30 Bilateral Drainage 20 Left Calf 20 Urine 820 405 25 Other: Voiding Method Indwelling Catheter Indwelling Catheter # Voids 1 1 ABP, PAP, CO, CI - Last Documented Arterial Blood Pressure 90/33 Pulmonary Artery Pressure 29/7 Cardiac Output 8.5 Cardiac Index 3.7 - Constitutional General appearance: Present: cooperative, no acute distress, obese - Respiratory Details: Lungs sounds diminished bilaterally. Respirations even, nonlabored. Currently on 2 L nasal cannula with oxygen saturation 98%. Effective cough. Able to achieve 1250 mL on her incentive spirometry. - Cardiovascular Details: S1, S2 present. Regular rate and rhythm, sinus rhythm on telemetry. Sternum stable. Palpable peripheral pulses bilaterally. Trace generalized edema present. No calf pain or tenderness noted. Heart hugger in place with patient demonstrating appropriate use. Antiembolism stockings, SCDs present. Right internal jugular Cordis, right radial arterial line present. - Gastrointestinal Gastrointestinal Comment(s): Abdomen soft, nontender, nondistended, obese. Active bowel sounds 4 quadrants. Tolerating diet. Positive flatus, no BM since surgery. - Genitourinary Genitourinary Comment(s): Mark present draining clear, yellow urine. Output 40 mL/h earlier in the shift , down to 25 mL per hour this morning. - Integumentary Integumentary Comment(s): Skin is warm and dry with evidence of good perfusion. Anterior chest incision well approximated and covered with dry intact dressing. Left lower extremity EVH site well approximated. - Neurologic Neurologic: Present: CNII-XII intact - Musculoskeletal Musculoskeletal: Present: generalized weakness, strength equal bilaterally - Psychiatric Psychiatric: Present: A&O x's 3, appropriate affect, intact judgment & insight - Allied health notes Allied health notes reviewed: nursing - Labs CBC & Chem 7: 01/30/18 04:10 01/30/18 04:10 Labs: Abnormal Lab Results - Last 24 Hours (Table) 01/29/18 01/29/18 01/29/18 Range/Units 08:12 08:31 10:10 RBC 2.03 L (3.80-5.40) m/uL Hgb 6.5 L* (11.4-16.0) gm/dL Hct 19.6 L* (34.0-46.0) % Lymphocytes # (1.0-4.8) k/uL BUN (7-17) mg/dL Glucose (74-99) mg/dL POC Glucose (mg/dL) 152 H 131 H (75-99) mg/dL Calcium (8.4-10.2) mg/dL Total Protein (6.3-8.2) g/dL Albumin (3.5-5.0) g/dL Crossmatch 01/29/18 01/29/18 01/29/18 Range/Units 14:06 16:03 18:07 RBC (3.80-5.40) m/uL Hgb (11.4-16.0) gm/dL Hct (34.0-46.0) % Lymphocytes # (1.0-4.8) k/uL BUN (7-17) mg/dL Glucose (74-99) mg/dL POC Glucose (mg/dL) 186 H 195 H 139 H (75-99) mg/dL Calcium (8.4-10.2) mg/dL Total Protein (6.3-8.2) g/dL Albumin (3.5-5.0) g/dL Crossmatch 01/29/18 01/29/18 01/29/18 Range/Units 19:52 22:05 23:10 RBC (3.80-5.40) m/uL Hgb (11.4-16.0) gm/dL Hct (34.0-46.0) % Lymphocytes # (1.0-4.8) k/uL BUN (7-17) mg/dL Glucose (74-99) mg/dL POC Glucose (mg/dL) 143 H 107 H 105 H (75-99) mg/dL Calcium (8.4-10.2) mg/dL Total Protein (6.3-8.2) g/dL Albumin (3.5-5.0) g/dL Crossmatch 01/30/18 01/30/18 01/30/18 Range/Units 01:12 03:19 04:10 RBC (3.80-5.40) m/uL Hgb (11.4-16.0) gm/dL Hct (34.0-46.0) % Lymphocytes # (1.0-4.8) k/uL BUN 18 H (7-17) mg/dL Glucose 116 H (74-99) mg/dL POC Glucose (mg/dL) 128 H 148 H (75-99) mg/dL Calcium 8.1 L (8.4-10.2) mg/dL Total Protein 4.7 L (6.3-8.2) g/dL Albumin 2.4 L (3.5-5.0) g/dL Crossmatch 01/30/18 01/30/18 01/30/18 Range/Units 04:10 04:13 04:45 RBC 1.86 L (3.80-5.40) m/uL Hgb 6.0 L* (11.4-16.0) gm/dL Hct 18.0 L* (34.0-46.0) % Lymphocytes # 0.9 L (1.0-4.8) k/uL BUN (7-17) mg/dL Glucose (74-99) mg/dL POC Glucose (mg/dL) 135 H (75-99) mg/dL Calcium (8.4-10.2) mg/dL Total Protein (6.3-8.2) g/dL Albumin (3.5-5.0) g/dL Crossmatch See Detail 01/30/18 01/30/18 Range/Units 05:50 06:50 RBC (3.80-5.40) m/uL Hgb (11.4-16.0) gm/dL Hct (34.0-46.0) % Lymphocytes # (1.0-4.8) k/uL BUN (7-17) mg/dL Glucose (74-99) mg/dL POC Glucose (mg/dL) 102 H 105 H (75-99) mg/dL Calcium (8.4-10.2) mg/dL Total Protein (6.3-8.2) g/dL Albumin (3.5-5.0) g/dL Crossmatch - Imaging and Cardiology Chest x-ray: image reviewed Assessment and Plan (1) History of coronary artery disease Current Visit: Yes Status: Chronic Code(s): Z86.79 - PERSONAL HISTORY OF OTHER DISEASES OF THE CIRCULATORY SYSTEM SNOMED Code(s): 382949836 (2) Hyperlipidemia Current Visit: Yes Status: Chronic Code(s): E78.5 - HYPERLIPIDEMIA, UNSPECIFIED SNOMED Code(s): 62444961 (3) Hypertension Current Visit: Yes Status: Chronic Code(s): I10 - ESSENTIAL (PRIMARY) HYPERTENSION SNOMED Code(s): 89741958 (4) Morbid obesity with BMI of 40.0-44.9, adult Current Visit: Yes Status: Chronic Code(s): E66.01 - MORBID (SEVERE) OBESITY DUE TO EXCESS CALORIES; Z68.41 - BODY MASS INDEX (BMI) 40.0-44.9, ADULT SNOMED Code(s): 836981609 (5) Non-STEMI (non-ST elevated myocardial infarction) Current Visit: Yes Status: Acute Code(s): I21.4 - NON-ST ELEVATION (NSTEMI) MYOCARDIAL INFARCTION SNOMED Code(s): 053510149 (6) Diabetes mellitus Current Visit: Yes Status: Chronic Code(s): E11.9 - TYPE 2 DIABETES MELLITUS WITHOUT COMPLICATIONS SNOMED Code(s): 86078061 (7) Left main coronary artery disease Current Visit: Yes Status: Chronic Code(s): I25.10 - ATHSCL HEART DISEASE OF [place] CORONARY ARTERY W/O ANG PCTRS SNOMED Code(s): 617405387 (8) Tobacco dependence in remission Current Visit: No Status: Resolved Code(s): F17.201 - NICOTINE DEPENDENCE, UNSPECIFIED, IN REMISSION SNOMED Code(s): 136112020 (9) Carotid stenosis, left Current Visit: Yes Status: Chronic Code(s): I65.22 - OCCLUSION AND STENOSIS OF LEFT CAROTID ARTERY SNOMED Code(s): 380963284091613 Plan: 1. Continue low-dose aspirin, statin, Plavix, subcu heparin, beta kris. Will increase beta kris as tolerated. 2. Will transfuse 1 unit packed red blood cells today followed by IV Lasix. 3. Cordis to continue CVP monitoring. 4. Wean O2 as tolerated. Encourage incentive spirometry. Encourage continued smoking cessation. 5. GI/DVT prophylaxis. 6. Increase activity, ambulate in hallway. PT/OT/Cardiac rehab following. 7. Will monitor daily labs and x-rays. 8. Insulin drip/diabetic management per primary care service. 9. Keep Mark for strict accurate intake and output. 10. More recommendations to follow. Time with Patient: Greater than 30
[2018-01-30] MEDS ORDERED: FUROSEMIDE 10 MG/ML 2 ML VIAL IV ONE (08:34)
[2018-01-30] MEDS: FERROUS SULFATE 325 MG TAB PO SCH ×2 (08:43→17:54)
[2018-01-30] MEDS: ASPIRIN 81 MG PO SCH (08:43)
[2018-01-30] MEDS: HEPARIN SODIUM,PORCINE 5,000 UNIT/ML 1 ML VIAL SQ SCH ×3 (08:43→23:54)
[2018-01-30] MEDS: ASCORBIC ACID 500 MG TAB PO SCH ×2 (08:43→17:11)
[2018-01-30] MEDS: PANTOPRAZOLE 40 MG TABLET PO SCH (08:43)
[2018-01-30] MEDS: ATORVASTATIN 40 MG TAB PO SCH (08:44)
[2018-01-30] MEDS: MUPIROCIN 2% OINT 22 GM TUBE NASAL SCH ×2 (08:44→20:26)
[2018-01-30] MEDS: CITALOPRAM HYDROBROMIDE 20 MG TAB PO SCH (08:44)
[2018-01-30] MEDS: CLOPIDOGREL 75 MG TAB PO SCH (08:44)
[2018-01-30 09:12] LABS: Glucose,Whole Blood 168 mg/dL (75-99)
--- NOTE | 2018-01-30 09:37 | P.PN ---
Subjective Progress Note Date: 01/30/18 Principal diagnosis: Status post open heart This is a pleasant 67-year-old female patient who presented to the hospital with a chest discomfort and ruled in for acute non-ST elevation myocardial infarction. She underwent a heart catheterization by Dr. Brady and was found to have severe left main disease. She underwent CABG 3 with CUMMINGS to LAD, SVG to PDA, and SVG to OM. I'll follow-up with her today, she seems to be doing better. Hemodynamically she is stable. She is on dual antiplatelet therapy along with beta kris as well as statin. Hemoglobin today from 6.5-60 she is in process of receiving one unit of packed RBC. Beside that the chest x-ray showed mild CHF and she is in process in receiving some Lasix. Objective - Vital Signs Vital signs: Vital Signs Temp 98.5 F 01/30/18 08:48 Pulse 89 01/30/18 08:48 Resp 18 01/30/18 08:48 BP 99/34 01/30/18 08:48 Pulse Ox 98 01/30/18 08:48 Intake & Output 01/29/18 01/30/18 01/30/18 18:59 06:59 18:59 Intake Total 1373.297 344.775 28.45 Output Total 920 405 25 Balance 453.297 -60.225 3.45 Intake: IV 311 276 26 LR 260 240 20 NS pressure bag 51 36 6 Intake, IV Titration 102.297 48.775 2.45 Amount Insulin Regular 100 unit 55.016 48.775 2.45 In Sodium Chloride 0.9% 100 ml @ Per Protocol IV .Q0M [facility] Rx#:[id number] Norepinephrin 16 mg-0.9% 47.281 Ns Pmx 16 mg In 250 ml @ Titrate IV .Q0M [facility] Rx#: [id number] Oral 960 20 Blood Product 0 Rc As-1 Unit 0 [id number] Output: Chest Tube Drainage 80 Chest Tube Bilateral 50 Mediastinal Pleural Catheter 30 Bilateral Drainage 20 Left Calf 20 Urine 820 405 25 Other: Voiding Method Indwelling Catheter Indwelling Catheter # Voids 1 1 ABP, PAP, CO, CI - Last Documented Arterial Blood Pressure 102/33 Pulmonary Artery Pressure 29/7 Cardiac Output 8.5 Cardiac Index 3.7 - Constitutional General appearance: Present: no acute distress - Respiratory Respiratory: bilateral: diminished - Cardiovascular Rhythm: regular Heart sounds: normal: S1, S2 - Labs CBC & Chem 7: 01/30/18 04:10 01/30/18 04:10 Labs: Abnormal Lab Results - Last 24 Hours (Table) 01/29/18 01/29/18 01/29/18 Range/Units 10:10 14:06 16:03 RBC (3.80-5.40) m/uL Hgb (11.4-16.0) gm/dL Hct (34.0-46.0) % Lymphocytes # (1.0-4.8) k/uL BUN (7-17) mg/dL Glucose (74-99) mg/dL POC Glucose (mg/dL) 131 H 186 H 195 H (75-99) mg/dL Calcium (8.4-10.2) mg/dL Total Protein (6.3-8.2) g/dL Albumin (3.5-5.0) g/dL Crossmatch 01/29/18 01/29/18 01/29/18 Range/Units 18:07 19:52 22:05 RBC (3.80-5.40) m/uL Hgb (11.4-16.0) gm/dL Hct (34.0-46.0) % Lymphocytes # (1.0-4.8) k/uL BUN (7-17) mg/dL Glucose (74-99) mg/dL POC Glucose (mg/dL) 139 H 143 H 107 H (75-99) mg/dL Calcium (8.4-10.2) mg/dL Total Protein (6.3-8.2) g/dL Albumin (3.5-5.0) g/dL Crossmatch 01/29/18 01/30/18 01/30/18 Range/Units 23:10 01:12 03:19 RBC (3.80-5.40) m/uL Hgb (11.4-16.0) gm/dL Hct (34.0-46.0) % Lymphocytes # (1.0-4.8) k/uL BUN (7-17) mg/dL Glucose (74-99) mg/dL POC Glucose (mg/dL) 105 H 128 H 148 H (75-99) mg/dL Calcium (8.4-10.2) mg/dL Total Protein (6.3-8.2) g/dL Albumin (3.5-5.0) g/dL Crossmatch 01/30/18 01/30/18 01/30/18 Range/Units 04:10 04:10 04:13 RBC 1.86 L (3.80-5.40) m/uL Hgb 6.0 L* (11.4-16.0) gm/dL Hct 18.0 L* (34.0-46.0) % Lymphocytes # 0.9 L (1.0-4.8) k/uL BUN 18 H (7-17) mg/dL Glucose 116 H (74-99) mg/dL POC Glucose (mg/dL) 135 H (75-99) mg/dL Calcium 8.1 L (8.4-10.2) mg/dL Total Protein 4.7 L (6.3-8.2) g/dL Albumin 2.4 L (3.5-5.0) g/dL Crossmatch 01/30/18 01/30/18 01/30/18 Range/Units 04:45 05:50 06:50 RBC (3.80-5.40) m/uL Hgb (11.4-16.0) gm/dL Hct (34.0-46.0) % Lymphocytes # (1.0-4.8) k/uL BUN (7-17) mg/dL Glucose (74-99) mg/dL POC Glucose (mg/dL) 102 H 105 H (75-99) mg/dL Calcium (8.4-10.2) mg/dL Total Protein (6.3-8.2) g/dL Albumin (3.5-5.0) g/dL Crossmatch See Detail 01/30/18 01/30/18 Range/Units 08:00 09:10 RBC (3.80-5.40) m/uL Hgb (11.4-16.0) gm/dL Hct (34.0-46.0) % Lymphocytes # (1.0-4.8) k/uL BUN (7-17) mg/dL Glucose (74-99) mg/dL POC Glucose (mg/dL) 124 H 168 H (75-99) mg/dL Calcium (8.4-10.2) mg/dL Total Protein (6.3-8.2) g/dL Albumin (3.5-5.0) g/dL Crossmatch Assessment and Plan Assessment: Assessment #1 severe underlying CAD and status post CABG as described above Plan #1 continue the current medical treatment which included dual antiplatelet as well as statin and beta kris #2 monitor the kidney function and electrolytes as well as a hemoglobin #3 continue following up with the patient
[2018-01-30 10:05] LABS: Glucose,Whole Blood 162 mg/dL (75-99)
--- NOTE | 2018-01-30 10:55 | P.PN ---
Subjective Progress Note Date: 01/30/18 Principal diagnosis: Acute non-ST segment elevation myocardial infarction, status post CABG postoperative day #3. 67-year-old female patient with known history of coronary artery disease and previous GA back in 2013 in addition to left internal carotid artery stenosis approximately 50-79% based on ultrasound in addition to history of smoking which she quit more than 30 years ago. The patient has other comorbidities including hypertension and hyperlipidemia and obesity. The patient came into the hospital because of chest tightness and pain radiating to her jaw. She was also feeling nauseated and she had a bout of emesis. She ruled in for acute GA. The troponin was elevated and the highest was at 15.4. Based on that a cardiac catheterization was done and it showed a 60% stenosis of the left main, 95% stenosis of the right coronary artery, totally occluded circumflex coronary artery, 90% stenosis of the proximal left anterior descending, 60% stenosis in the mid anterior descending. The LV angiogram showed a normal ejection fraction of 60%. The patient was kept on IV heparin. She is currently being evaluated for cardiac bypass surgery. This is being considered yet is currently on hold knowing that the patient has taken Plavix. Follow pulmonary standpoint, the patient may have an underlying COPD although this has not been officially diagnosed. Her FEV1 was measured to be at around 35%. This was a suboptimal effort. She claims that she is able to climb a flight of stairs with some limited difficulties. No cough. No sputum production. No hemoptysis. Pleurisy. No swelling lower extremities. No recurrent pneumonias. No reported history of any obstructive sleep apnea. No asthma during childhood. No previous history of DVT and pulmonary embolism. Chest x- ray shows no evidence of any lung masses or lesions. Pulse ox on room air is 97 %. On 4 1018 the patient is looking well. Overnight she had some issues with hypotension and the [place]-Ethan catheter was kept in place. She received a total of 500 mL of albumin. She was briefly placed on pressors and she is currently off pressors. Hemoglobin is down to 6.5. Cardiothoracic surgery is aware and there are no plans to transfuse this patient. The [place] tubes are showing low output and these to his will be removed today. The patient is postop day # 2. Pleural catheters and she was will be kept in place. [place]-Ethan catheter will be removed. She is not having any significant chest pain. No cough or sputum production. Pulling approximately 1000 on incentive spirometer. Still on insulin drip for blood sugar control. Sternum stable clean and intact. No other significant events otherwise for now and will continue to follow. On 01/30/2018, patient continues to do well, she is status post CABG, postoperative day #3. Patient is on nasal cannula, denies any specific complaints, in no distress. Hemoglobin is low today, patient is being transfused. Her chest x-ray showed a left lower lobe atelectasis and small left pleural effusion noted. Basic metabolic profile is normal, renal profile is normal. Chest x-ray as noted above. Objective - Vital Signs Vital signs: Vital Signs Temp 98.1 F 01/30/18 09:18 Pulse 84 01/30/18 10:00 Resp 17 01/30/18 10:00 BP 121/36 01/30/18 09:18 Pulse Ox 97 01/30/18 10:00 Intake & Output 01/29/18 01/30/18 01/30/18 18:59 06:59 18:59 Intake Total 1373.297 344.775 986.75 Output Total 920 405 91 Balance 453.297 -60.225 895.75 Intake: IV 311 276 104 LR 260 240 80 NS pressure bag 51 36 24 Intake, IV Titration 102.297 48.775 7.75 Amount Insulin Regular 100 unit 55.016 48.775 7.75 In Sodium Chloride 0.9% 100 ml @ Per Protocol IV .Q0M [facility] Rx#:[id number] Norepinephrin 16 mg-0.9% 47.281 Ns Pmx 16 mg In 250 ml @ Titrate IV .Q0M [facility] Rx#: [id number] Oral 960 20 500 Blood Product 375 Rc As-1 Unit 0 [id number] Output: Chest Tube Drainage 80 Chest Tube Bilateral 50 Mediastinal Pleural Catheter 30 Bilateral Drainage 20 Left Calf 20 Urine 820 405 91 Other: Voiding Method Indwelling Catheter Indwelling Catheter Indwelling Catheter # Voids 1 1 ABP, PAP, CO, CI - Last Documented Arterial Blood Pressure 115/39 Pulmonary Artery Pressure 29/7 Cardiac Output 8.5 Cardiac Index 3.7 - Exam - Constitutional General appearance: Revealed a 67-year-old female in no form of distress. - Respiratory Details: Lungs sounds diminished bilaterally. Respirations even, nonlabored. Currently on 2 L nasal cannula with oxygen saturation 99%. Able to achieve 1500 mL on her incentive spirometry. - Cardiovascular Details: S1, S2 present. Regular rate and rhythm, sinus rhythm on telemetry. - Gastrointestinal Gastrointestinal Comment(s): Abdomen soft, nontender, nondistended, obese. Active bowel sounds present 4 quadrants. Negative flatus, positive burping. Tolerating diet. - Genitourinary Genitourinary Comment(s): Mark present draining clear, yellow urine. Output 45-90 mL/h overnight. - Integumentary Integumentary Comment(s): Skin is warm and dry with evidence of good perfusion. Anterior chest incision well approximated with dry intact dressing. Left lower extremity EVH site well approximated, NAREN drain in place with minimal drainage. - Neurologic Neurologic: Present: CNII-XII intact - Musculoskeletal Musculoskeletal: Present: gait normal, strength equal bilaterally - Psychiatric Psychiatric: Present: A&O x's 3, appropriate affect, intact judgment & insight - Labs CBC & Chem 7: 01/30/18 04:10 01/30/18 04:10 Labs: Abnormal Lab Results - Last 24 Hours (Table) 01/29/18 01/29/18 01/29/18 Range/Units 14:06 16:03 18:07 RBC (3.80-5.40) m/uL Hgb (11.4-16.0) gm/dL Hct (34.0-46.0) % Lymphocytes # (1.0-4.8) k/uL BUN (7-17) mg/dL Glucose (74-99) mg/dL POC Glucose (mg/dL) 186 H 195 H 139 H (75-99) mg/dL Calcium (8.4-10.2) mg/dL Total Protein (6.3-8.2) g/dL Albumin (3.5-5.0) g/dL Crossmatch 01/29/18 01/29/18 01/29/18 Range/Units 19:52 22:05 23:10 RBC (3.80-5.40) m/uL Hgb (11.4-16.0) gm/dL Hct (34.0-46.0) % Lymphocytes # (1.0-4.8) k/uL BUN (7-17) mg/dL Glucose (74-99) mg/dL POC Glucose (mg/dL) 143 H 107 H 105 H (75-99) mg/dL Calcium (8.4-10.2) mg/dL Total Protein (6.3-8.2) g/dL Albumin (3.5-5.0) g/dL Crossmatch 01/30/18 01/30/18 01/30/18 Range/Units 01:12 03:19 04:10 RBC (3.80-5.40) m/uL Hgb (11.4-16.0) gm/dL Hct (34.0-46.0) % Lymphocytes # (1.0-4.8) k/uL BUN 18 H (7-17) mg/dL Glucose 116 H (74-99) mg/dL POC Glucose (mg/dL) 128 H 148 H (75-99) mg/dL Calcium 8.1 L (8.4-10.2) mg/dL Total Protein 4.7 L (6.3-8.2) g/dL Albumin 2.4 L (3.5-5.0) g/dL Crossmatch 01/30/18 01/30/18 01/30/18 Range/Units 04:10 04:13 04:45 RBC 1.86 L (3.80-5.40) m/uL Hgb 6.0 L* (11.4-16.0) gm/dL Hct 18.0 L* (34.0-46.0) % Lymphocytes # 0.9 L (1.0-4.8) k/uL BUN (7-17) mg/dL Glucose (74-99) mg/dL POC Glucose (mg/dL) 135 H (75-99) mg/dL Calcium (8.4-10.2) mg/dL Total Protein (6.3-8.2) g/dL Albumin (3.5-5.0) g/dL Crossmatch See Detail 01/30/18 01/30/18 01/30/18 Range/Units 05:50 06:50 08:00 RBC (3.80-5.40) m/uL Hgb (11.4-16.0) gm/dL Hct (34.0-46.0) % Lymphocytes # (1.0-4.8) k/uL BUN (7-17) mg/dL Glucose (74-99) mg/dL POC Glucose (mg/dL) 102 H 105 H 124 H (75-99) mg/dL Calcium (8.4-10.2) mg/dL Total Protein (6.3-8.2) g/dL Albumin (3.5-5.0) g/dL Crossmatch 01/30/18 01/30/18 Range/Units 09:10 10:03 RBC (3.80-5.40) m/uL Hgb (11.4-16.0) gm/dL Hct (34.0-46.0) % Lymphocytes # (1.0-4.8) k/uL BUN (7-17) mg/dL Glucose (74-99) mg/dL POC Glucose (mg/dL) 168 H 162 H (75-99) mg/dL Calcium (8.4-10.2) mg/dL Total Protein (6.3-8.2) g/dL Albumin (3.5-5.0) g/dL Crossmatch Assessment and Plan Assessment: 1 multivessel coronary artery disease status post acute non-ST segment elevation myocardial infarction, the patient has undergone three-vessel bypass surgery, patient is postop day #3 2 post thoracotomy mechanical ventilation, and expected outcome following bypass surgery. 3 COPD, inactive, and stable. 4 diabetes mellitus, currently on insulin drip for blood sugar control 5 diabetic retinopathy and glaucoma 6 hypertension 7 hyperlipidemia 8 preserved LV function with a normal ejection fraction of 60% 9 left internal carotid artery stenosis estimated to be around 50-79% 10 fibromyalgia 11 GERD without esophagitis. 12 degenerative arthritis 13 anemia, and expected outcome of bypass surgery. Patient is presently receiving 1 unit of packed RBCs for a low hemoglobin of 6.0. Recommendation: Continue present supportive care measures, continue incentive spirometry, continue diuretics, maintain hemoglobin above 7.0, transfuse accordingly. We'll continue to follow. Time with Patient: Less than 30
[2018-01-30] MEDS: MULTIVITAMINS, THERA 1 EACH TAB PO SCH (11:43)
[2018-01-30] MEDS ORDERED: ALBUMIN HUMAN 25% 50 ML in EMPTY BAG 1 BAG IVPB ONE (12:00)
[2018-01-30 12:10] LABS: Glucose,Whole Blood 113 mg/dL (75-99)
[2018-01-30 13:25] LABS: Glucose,Whole Blood 129 mg/dL (75-99)
[2018-01-30 13:58] LABS: Glucose,Whole Blood 166 mg/dL (75-99)
[2018-01-30 14:30] LABS: HCT 20.9 % (34.0-46.0); MCH 31.6 pg (25.0-35.0); MCHC 33.3 g/dL (31.0-37.0); MCV 94.9 fL (80.0-100.0); Mean Platelet Volume 7.7; Platelet Count 184 k/uL (150-450); RDW 15.3 % (11.5-15.5); WBC 8.5 k/uL (3.8-10.6)
[2018-01-30 15:47] LABS: Glucose,Whole Blood 175 mg/dL (75-99)
[2018-01-30] MEDS: METOPROLOL TARTRATE 12.5 MG TAB PO SCH ×2 (17:10→20:07)
[2018-01-30 17:21] LABS: Glucose,Whole Blood 162 mg/dL (75-99)
[2018-01-30] MEDS ORDERED: INSULIN ASPART 100 UNIT/ML 1 ML 10 ML VIAL SQ SCH (17:30)
[2018-01-30] MEDS: LACTATED RINGERS 1,000 ML IV SCH (18:11)
[2018-01-30] MEDS: INSULIN ASPART 100 UNIT/ML 1 ML 10 ML VIAL SQ SCH ×3 (18:40→20:27)
[2018-01-30 20:00] LABS: Glucose,Whole Blood 206 mg/dL (75-99)
[2018-01-30] MEDS: MONTELUKAST 10 MG TAB PO SCH (20:07)
[2018-01-30] MEDS: SENNOSIDES-DOCUSATE SODIUM 1 EACH TAB PO SCH (20:07)
[2018-01-30] MEDS: INSULIN NPH 300 UNIT/3 ML VIAL SQ SCH (20:27)
[2018-01-30] MEDS ORDERED: INSULIN NPH 300 UNIT/3 ML VIAL SQ SCH (21:00)
[2018-01-30 21:51] LABS: HCT 22.6 % (34.0-46.0); HGB 7.5 gm/dL (11.4-16.0); MCH 31.3 pg (25.0-35.0); MCHC 33.4 g/dL (31.0-37.0); MCV 93.8 fL (80.0-100.0); Platelet Count 206 k/uL (150-450); RBC 2.41 m/uL (3.80-5.40); RDW 15.8 % (11.5-15.5); WBC 8.3 k/uL (3.8-10.6)
[2018-01-30 23:49] LABS: Glucose,Whole Blood 166 mg/dL (75-99)
[2018-01-31 04:34] LABS: Glucose,Whole Blood 171 mg/dL (75-99)
[2018-01-31 04:42] LABS: Anisocytosis Slight; Basophils % (A) 0 %; Eosinophils # (A) 0.5 k/uL (0-0.7); Eosinophils % (A) 6 %; HCT 22.8 % (34.0-46.0); HGB 7.4 gm/dL (11.4-16.0); Lymphocytes # (A) 1.3 k/uL (1.0-4.8); Lymphocytes % (A) 16 %; MCH 30.5 pg (25.0-35.0); MCHC 32.4 g/dL (31.0-37.0); MCV 94.1 fL (80.0-100.0); Mean Platelet Volume 7.6; Monocytes # (A) 0.3 k/uL (0-1.0); Monocytes % (A) 4 %; Neutrophils # (A) 5.9 k/uL (1.3-7.7); Neutrophils % (A) 72 %; Platelet Count 204 k/uL (150-450); RBC 2.42 m/uL (3.80-5.40); RDW 16.2 % (11.5-15.5); WBC 8.1 k/uL (3.8-10.6)
[2018-01-31 04:54] LABS: Albumin 2.5 g/dL (3.5-5.0); Magnesium 2.3 mg/dL (1.6-2.3); Phosphorus 3.5 mg/dL (2.5-4.5); Potassium 4.2 mmol/L (3.5-5.1); Total Bilirubin 0.8 mg/dL (0.2-1.3); Total Protein 4.9 g/dL (6.3-8.2)
[2018-01-31] MEDS: ASCORBIC ACID 500 MG TAB PO SCH ×2 (07:14→16:44)
[2018-01-31] MEDS: FERROUS SULFATE 325 MG TAB PO SCH ×2 (07:14→16:44)
[2018-01-31] MEDS: PANTOPRAZOLE 40 MG TABLET PO SCH (07:14)
[2018-01-31 07:19] LABS: Glucose,Whole Blood 226 mg/dL (75-99)
[2018-01-31] MEDS ORDERED: INSULN ASP PRT/INSULIN ASPART 100 UNIT/ML 10 ML VIAL SQ SCH (07:30)
[2018-01-31] MEDS: INSULIN ASPART 100 UNIT/ML 1 ML 10 ML VIAL SQ SCH ×5 (07:41→20:39)
[2018-01-31] MEDS: IPRATROPIUM-ALBUTEROL 3 ML NEB INHALATION SCH ×4 (07:50→19:17)
--- NOTE | 2018-01-31 08:10 | XR ---
EXAMINATION TYPE: XR chest 1V DATE OF EXAM: 01/31/2018 COMPARISON: 01/30/2018 HISTORY: Postop CABG TECHNIQUE: Single frontal view of the chest is obtained. FINDINGS: Postsurgical changes noted with bilateral consolidation and pleural effusion. [place]-Ethan ca theter and chest tube have been removed. No sizable pneumothorax on today's exam. Mild central venous congestion not excluded. IMPRESSION: Bilateral infiltrate and pleural effusion. Correlate for mild central venous congestion.
--- NOTE | 2018-01-31 08:26 | P.PN ---
Progress Note - Text The patient is a 67-year-old female who has undergone coronary artery bypass surgery 3 days previous after she presented with a non-Q-wave myocardial infarction associated with left main disease and triple-vessel disease. This morning she is sitting up at the side of the bed. States she had some lower chest and abdominal discomfort after taking a few bites of food this morning. No nausea or vomiting or shortness of breath. Her is sitting next to her in the room. Blood pressure is 106/38 with respirations 19 and pulse of 76. She is 92% saturated and last temperature was 98.5 axillary. She does not appear to be in any respiratory distress. Breath sounds are somewhat diminished at bases. No neurological deficits. Venous appliances applied to the lower extremities. Laboratory White count is 8.1 with a hemoglobin of 7.4 and a platelet count of 204. Sodium is 140 with potassium 4.2. BUN of 21 with creatinine of 0.9 giving her a GFR of 67. Blood sugar this morning was 154. Impressions and plans Overall this 67-year-old female post coronary artery bypass is generally doing well. She has received transfusions for blood loss anemia which has improved. She does have numerous comorbidities which include to underlying diabetes, hypertension, obesity. Continue general progression with the tendons from pulmonary medicine, cardiology and surgery. Their notes have been regarded.
[2018-01-31] MEDS: INSULN ASP PRT/INSULIN ASPART 100 UNIT/ML 10 ML VIAL SQ SCH (08:35)
[2018-01-31] MEDS: HYDROcodone/APAP 5-325MG 1 EACH TAB PO PRN ×2 (08:36→17:24)
[2018-01-31] MEDS: HEPARIN SODIUM,PORCINE 5,000 UNIT/ML 1 ML VIAL SQ SCH ×2 (08:42→16:44)
[2018-01-31] MEDS: ASPIRIN 81 MG PO SCH (08:42)
[2018-01-31] MEDS: METOPROLOL TARTRATE 12.5 MG TAB PO SCH ×2 (08:43→20:36)
[2018-01-31] MEDS: CLOPIDOGREL 75 MG TAB PO SCH (08:43)
[2018-01-31] MEDS: CITALOPRAM HYDROBROMIDE 20 MG TAB PO SCH (08:43)
[2018-01-31] MEDS: ATORVASTATIN 40 MG TAB PO SCH (08:43)
[2018-01-31 09:44] VITALS: BMI 48.2
[2018-01-31] MEDS ORDERED: FUROSEMIDE 10 MG/ML 2 ML VIAL IV ONE (10:00)
--- NOTE | 2018-01-31 10:09 | P.VSCSTY ---
Greater Saphenous Vein Mapping This is bilateral lower extremity greater saphenous vein mapping. Date of service 01/24/2018 Vein quality and ultrasound appearance no intraluminal thrombus or wall changes are seen. Vein size groin right 7.4 x 6.5 groin left 6.1 x 5.8 High thigh right 6.7 x 5.3 high thigh left 6.0 x 5.7 Mid thigh right 6.4 x 4.7 mid thigh left 5.3 x 4.0 Above-knee right 6.2 x 5.5 above- knee left 4.5 x 4.9 Below knee right 5.4 x 5.0 below-knee left 3.5 x 3.4 Mid calf right to 2.8 x 3.1 mid calf left 3.3 x 2.6 Ankle right 3.9 x 3.2 ankle left 4.1 x 2.9 Impression usable bilateral greater saphenous vein. Left somewhat more consistent in size for use as conduit..
--- NOTE | 2018-01-31 10:15 | P.PN ---
Subjective Progress Note Date: 01/31/18 Principal diagnosis: Severe coronary artery disease including left main stenosis of 60%, NSTEMI. Previous medical history of coronary artery disease with previous myocardial infarction 2013, hypertension, hyperlipidemia, fibromyalgia, depression, left carotid stenosis greater than 70%, previous tobacco dependence with the current FEV1 of 104% predicted, obesity with history of lap band surgery, renal failure with 2 treatments of hemodialysis, GERD, and diabetes mellitus type tube with current hemoglobin A1c of 7.1%. POD #4 urgent coronary artery bypass grafting 3 vessels, left internal mammary artery to left anterior descending artery, reverse saphenous vein graft to the posterior descending artery, reverse saphenous vein graft to the distal obtuse marginal artery. Endoscopic vein harvesting of the left greater saphenous vein. Epi-aortic ultrasound. Intraoperative transesophageal echocardiogram. Graft flow measurement using the [email or web address] system. Lysis of adhesions. Postoperative acute blood loss anemia, and expected outcome of surgery given cardiopulmonary bypass. Patient's currently sitting up in a recliner in no acute distress. States sternal pain is controlled on current medication regimen. No other complaints at this time. Objective - Vital Signs Vital signs: Vital Signs Temp 98.1 F 01/31/18 08:00 Pulse 85 01/31/18 09:00 Resp 18 01/31/18 09:00 BP 98/31 01/31/18 09:00 Pulse Ox 94 L 01/31/18 09:00 Intake & Output 01/30/18 01/31/18 01/31/18 18:59 06:59 18:59 Intake Total 1732.992 773 286 Output Total 686 485 125 Balance 1046.992 288 161 Weight 134.9 kg 139.6 kg Intake: IV 312 338 46 LR 240 260 40 NS pressure bag 72 78 6 Intake, IV Titration 35.992 Amount Insulin Regular 100 unit 35.992 In Sodium Chloride 0.9% 100 ml @ Per Protocol IV .Q0M [facility] Rx#:[id number] Oral 600 125 240 Blood Product 685 310 Rc As-1 Unit 0 310 [id number] Rc As-1 Unit 310 [id number] Other 100 Rc As-1 Unit 100 [id number] Output: Urine 686 485 125 Other: Voiding Method Indwelling Catheter Indwelling Catheter ABP, PAP, CO, CI - Last Documented Arterial Blood Pressure 111/37 Pulmonary Artery Pressure 29/7 Cardiac Output 8.5 Cardiac Index 3.7 - Constitutional General appearance: Present: cooperative, no acute distress, obese - Respiratory Details: Lungs sounds diminished bilaterally. Respirations even, nonlabored. Currently on room air with oxygen saturations 98%. Able to achieve 1500 mL on her incentive spirometry. Effective cough. - Cardiovascular Details: S1, S2 present. Regular rate and rhythm, sinus rhythm on telemetry. Sternum stable. Palpable peripheral pulses bilaterally. Trace bilateral lower extremity edema present. No calf pain or tenderness noted. Right internal jugular Cordis, right radial arterial line present. Heart hugger in place with patient demonstrating appropriate use. Antiembolism stockings, SCDs present. - Gastrointestinal Gastrointestinal Comment(s): Abdomen soft, nontender, nondistended, obese. Active bowel sounds 4 quadrants. Tolerating diet. Positive flatus, negative BM. - Genitourinary Genitourinary Comment(s): Mark present during clear, yellow urine. Output 40 mL/h overnight. - Integumentary Integumentary Comment(s): Skin is warm and dry with evidence of good perfusion. Anterior chest incision well approximated, covered with clean, dry, intact dressing. Left lower extremity EVH site well approximated. - Neurologic Neurologic: Present: CNII-XII intact - Musculoskeletal Musculoskeletal: Present: generalized weakness - Psychiatric Psychiatric: Present: A&O x's 3, appropriate affect, intact judgment & insight - Allied health notes Allied health notes reviewed: nursing - Labs CBC & Chem 7: 01/31/18 04:35 01/31/18 04:35 Labs: Abnormal Lab Results - Last 24 Hours (Table) 01/30/18 01/30/18 01/30/18 Range/Units 04:45 10:03 12:07 RBC (3.80-5.40) m/uL Hgb (11.4-16.0) gm/dL Hct (34.0-46.0) % RDW (11.5-15.5) % BUN (7-17) mg/dL Glucose (74-99) mg/dL POC Glucose (mg/dL) 162 H 113 H (75-99) mg/dL Calcium (8.4-10.2) mg/dL Total Protein (6.3-8.2) g/dL Albumin (3.5-5.0) g/dL Crossmatch See Detail 01/30/18 01/30/18 01/30/18 Range/Units 13:24 13:55 13:55 RBC 2.20 L (3.80-5.40) m/uL Hgb 7.0 L* (11.4-16.0) gm/dL Hct 20.9 L (34.0-46.0) % RDW (11.5-15.5) % BUN (7-17) mg/dL Glucose (74-99) mg/dL POC Glucose (mg/dL) 129 H 166 H (75-99) mg/dL Calcium (8.4-10.2) mg/dL Total Protein (6.3-8.2) g/dL Albumin (3.5-5.0) g/dL Crossmatch 01/30/18 01/30/18 01/30/18 Range/Units 15:44 17:19 19:58 RBC (3.80-5.40) m/uL Hgb (11.4-16.0) gm/dL Hct (34.0-46.0) % RDW (11.5-15.5) % BUN (7-17) mg/dL Glucose (74-99) mg/dL POC Glucose (mg/dL) 175 H 162 H 206 H (75-99) mg/dL Calcium (8.4-10.2) mg/dL Total Protein (6.3-8.2) g/dL Albumin (3.5-5.0) g/dL Crossmatch 01/30/18 01/30/18 01/31/18 Range/Units 21:40 23:47 04:32 RBC 2.41 L (3.80-5.40) m/uL Hgb 7.5 L (11.4-16.0) gm/dL Hct 22.6 L (34.0-46.0) % RDW 15.8 H (11.5-15.5) % BUN (7-17) mg/dL Glucose (74-99) mg/dL POC Glucose (mg/dL) 166 H 171 H (75-99) mg/dL Calcium (8.4-10.2) mg/dL Total Protein (6.3-8.2) g/dL Albumin (3.5-5.0) g/dL Crossmatch 01/31/18 01/31/18 01/31/18 Range/Units 04:35 04:35 07:18 RBC 2.42 L (3.80-5.40) m/uL Hgb 7.4 L (11.4-16.0) gm/dL Hct 22.8 L (34.0-46.0) % RDW 16.2 H (11.5-15.5) % BUN 21 H (7-17) mg/dL Glucose 154 H (74-99) mg/dL POC Glucose (mg/dL) 226 H (75-99) mg/dL Calcium 8.0 L (8.4-10.2) mg/dL Total Protein 4.9 L (6.3-8.2) g/dL Albumin 2.5 L (3.5-5.0) g/dL Crossmatch - Imaging and Cardiology Chest x-ray: report reviewed, image reviewed Assessment and Plan (1) History of coronary artery disease Current Visit: Yes Status: Chronic Code(s): Z86.79 - PERSONAL HISTORY OF OTHER DISEASES OF THE CIRCULATORY SYSTEM SNOMED Code(s): 165517455 (2) Hyperlipidemia Current Visit: Yes Status: Chronic Code(s): E78.5 - HYPERLIPIDEMIA, UNSPECIFIED SNOMED Code(s): 99441562 (3) Hypertension Current Visit: Yes Status: Chronic Code(s): I10 - ESSENTIAL (PRIMARY) HYPERTENSION SNOMED Code(s): 19495405 (4) Morbid obesity with BMI of 40.0-44.9, adult Current Visit: Yes Status: Chronic Code(s): E66.01 - MORBID (SEVERE) OBESITY DUE TO EXCESS CALORIES; Z68.41 - BODY MASS INDEX (BMI) 40.0-44.9, ADULT SNOMED Code(s): 278889867 (5) Non-STEMI (non-ST elevated myocardial infarction) Current Visit: Yes Status: Acute Code(s): I21.4 - NON-ST ELEVATION (NSTEMI) MYOCARDIAL INFARCTION SNOMED Code(s): 943978028 (6) Diabetes mellitus Current Visit: Yes Status: Chronic Code(s): E11.9 - TYPE 2 DIABETES MELLITUS WITHOUT COMPLICATIONS SNOMED Code(s): 58417572 (7) Left main coronary artery disease Current Visit: Yes Status: Chronic Code(s): I25.10 - ATHSCL HEART DISEASE OF [place] CORONARY ARTERY W/O ANG PCTRS SNOMED Code(s): 629584113 (8) Tobacco dependence in remission Current Visit: No Status: Resolved Code(s): F17.201 - NICOTINE DEPENDENCE, UNSPECIFIED, IN REMISSION SNOMED Code(s): 620977992 (9) Carotid stenosis, left Current Visit: Yes Status: Chronic Code(s): I65.22 - OCCLUSION AND STENOSIS OF LEFT CAROTID ARTERY SNOMED Code(s): 671865255836635 Plan: 1. Continue low-dose aspirin, statin, Plavix, subcu heparin, beta kris. Will increase beta kris as tolerated. 2. Discontinue arterial line, Cordis, Mark. 3. Wean O2 as tolerated. Encourage incentive spirometry. Encourage continued smoking cessation. 4. GI/DVT prophylaxis. 5. Increase activity, ambulate in hallway. PT/OT/Cardiac rehab following. 6. Will monitor daily labs and x-rays. 7. Diabetic management per primary care service. 8. May transfer to [facility] when bed available. 9. More recommendations to follow. Will consult Dr. Morris for inpatient rehab upon discharge. Time with Patient: Greater than 30
--- NOTE | 2018-01-31 10:18 | P.ARTDOP ---
Arterial Doppler LOWER EXTREMITY ARTERIAL DOPPLER: DATE OF SERVICE: 01/25/2018 Reason for study: Preop CABG. Doppler waveforms: Multiphasic throughout on the left and at the right femoral and popliteal.. Pulse volume recording: []. Pressure gradients: Mild gradient on the right across the knee. Ankle-brachial indices: 0.84 on the right and cannot be occluded on the left. Toe pressures: [] on the right, [] on the left Impression: Normal flow study on the left. Mild right fem-pop disease. Suspect calcific wall disease but does not appear to be hemodynamically significant..
--- NOTE | 2018-01-31 10:27 | P.PN ---
Subjective Progress Note Date: 01/31/18 Principal diagnosis: Status post open heart This is a pleasant 67-year-old female patient who presented to the hospital with a chest discomfort and ruled in for acute non-ST elevation myocardial infarction. She underwent a heart catheterization by Dr. Brady and was found to have severe left main disease. She underwent CABG 3 with CUMMINGS to LAD, SVG to PDA, and SVG to OM. I'll follow-up with her today, she seems to be doing better. Hemodynamically she is stable. She is on dual antiplatelet therapy along with beta kris as well as statin. Hemoglobin today is 7.4. She received 2 units of packed RBC yesterday. She is in process to be transferred to selective units. Objective - Vital Signs Vital signs: Vital Signs Temp 98.1 F 01/31/18 08:00 Pulse 85 01/31/18 09:00 Resp 18 01/31/18 09:00 BP 98/31 01/31/18 09:00 Pulse Ox 94 L 01/31/18 09:42 Intake & Output 01/30/18 01/31/18 01/31/18 18:59 06:59 18:59 Intake Total 1732.992 773 286 Output Total 686 485 125 Balance 1046.992 288 161 Weight 134.9 kg 139.6 kg 139.6 kg Intake: IV 312 338 46 LR 240 260 40 NS pressure bag 72 78 6 Intake, IV Titration 35.992 Amount Insulin Regular 100 unit 35.992 In Sodium Chloride 0.9% 100 ml @ Per Protocol IV .Q0M [facility] Rx#:[id number] Oral 600 125 240 Blood Product 685 310 Rc As-1 Unit 0 310 [id number] Rc As-1 Unit 310 [id number] Other 100 Rc As-1 Unit 100 [id number] Output: Urine 686 485 125 Other: Voiding Method Indwelling Catheter Indwelling Catheter Indwelling Catheter ABP, PAP, CO, CI - Last Documented Arterial Blood Pressure 111/37 Pulmonary Artery Pressure 29/7 Cardiac Output 8.5 Cardiac Index 3.7 - Constitutional General appearance: Present: no acute distress - Respiratory Respiratory: bilateral: CTA - Cardiovascular Rhythm: regular Heart sounds: normal: S1, S2 - Labs CBC & Chem 7: 01/31/18 04:35 01/31/18 04:35 Labs: Abnormal Lab Results - Last 24 Hours (Table) 01/30/18 01/30/18 01/30/18 Range/Units 04:45 12:07 13:24 RBC (3.80-5.40) m/uL Hgb (11.4-16.0) gm/dL Hct (34.0-46.0) % RDW (11.5-15.5) % BUN (7-17) mg/dL Glucose (74-99) mg/dL POC Glucose (mg/dL) 113 H 129 H (75-99) mg/dL Calcium (8.4-10.2) mg/dL Total Protein (6.3-8.2) g/dL Albumin (3.5-5.0) g/dL Crossmatch See Detail 01/30/18 01/30/18 01/30/18 Range/Units 13:55 13:55 15:44 RBC 2.20 L (3.80-5.40) m/uL Hgb 7.0 L* (11.4-16.0) gm/dL Hct 20.9 L (34.0-46.0) % RDW (11.5-15.5) % BUN (7-17) mg/dL Glucose (74-99) mg/dL POC Glucose (mg/dL) 166 H 175 H (75-99) mg/dL Calcium (8.4-10.2) mg/dL Total Protein (6.3-8.2) g/dL Albumin (3.5-5.0) g/dL Crossmatch 01/30/18 01/30/18 01/30/18 Range/Units 17:19 19:58 21:40 RBC 2.41 L (3.80-5.40) m/uL Hgb 7.5 L (11.4-16.0) gm/dL Hct 22.6 L (34.0-46.0) % RDW 15.8 H (11.5-15.5) % BUN (7-17) mg/dL Glucose (74-99) mg/dL POC Glucose (mg/dL) 162 H 206 H (75-99) mg/dL Calcium (8.4-10.2) mg/dL Total Protein (6.3-8.2) g/dL Albumin (3.5-5.0) g/dL Crossmatch 01/30/18 01/31/18 01/31/18 Range/Units 23:47 04:32 04:35 RBC 2.42 L (3.80-5.40) m/uL Hgb 7.4 L (11.4-16.0) gm/dL Hct 22.8 L (34.0-46.0) % RDW 16.2 H (11.5-15.5) % BUN (7-17) mg/dL Glucose (74-99) mg/dL POC Glucose (mg/dL) 166 H 171 H (75-99) mg/dL Calcium (8.4-10.2) mg/dL Total Protein (6.3-8.2) g/dL Albumin (3.5-5.0) g/dL Crossmatch 01/31/18 01/31/18 Range/Units 04:35 07:18 RBC (3.80-5.40) m/uL Hgb (11.4-16.0) gm/dL Hct (34.0-46.0) % RDW (11.5-15.5) % BUN 21 H (7-17) mg/dL Glucose 154 H (74-99) mg/dL POC Glucose (mg/dL) 226 H (75-99) mg/dL Calcium 8.0 L (8.4-10.2) mg/dL Total Protein 4.9 L (6.3-8.2) g/dL Albumin 2.5 L (3.5-5.0) g/dL Crossmatch Assessment and Plan Assessment: Assessment #1 severe underlying CAD and status post CABG as described above Plan #1 continue the current medical treatment which included dual antiplatelet as well as statin and beta kris #2 monitor the kidney function and electrolytes as well as a hemoglobin #3 continue following up with the patient
[2018-01-31 12:02] LABS: Glucose,Whole Blood 163 mg/dL (75-99)
[2018-01-31] MEDS: MULTIVITAMINS, THERA 1 EACH TAB PO SCH (12:30)
--- NOTE | 2018-01-31 14:13 | P.PN ---
Subjective Progress Note Date: 01/31/18 Principal diagnosis: Acute non-ST segment elevation myocardial infarction, status post CABG postoperative day #4 67-year-old female patient with known history of coronary artery disease and previous MS back in 2013 in addition to left internal carotid artery stenosis approximately 50-79% based on ultrasound in addition to history of smoking which she quit more than 30 years ago. The patient has other comorbidities including hypertension and hyperlipidemia and obesity. The patient came into the hospital because of chest tightness and pain radiating to her jaw. She was also feeling nauseated and she had a bout of emesis. She ruled in for acute MS. The troponin was elevated and the highest was at 15.4. Based on that a cardiac catheterization was done and it showed a 60% stenosis of the left main, 95% stenosis of the right coronary artery, totally occluded circumflex coronary artery, 90% stenosis of the proximal left anterior descending, 60% stenosis in the mid anterior descending. The LV angiogram showed a normal ejection fraction of 60%. The patient was kept on IV heparin. She is currently being evaluated for cardiac bypass surgery. This is being considered yet is currently on hold knowing that the patient has taken Plavix. Follow pulmonary standpoint, the patient may have an underlying COPD although this has not been officially diagnosed. Her FEV1 was measured to be at around 35%. This was a suboptimal effort. She claims that she is able to climb a flight of stairs with some limited difficulties. No cough. No sputum production. No hemoptysis. Pleurisy. No swelling lower extremities. No recurrent pneumonias. No reported history of any obstructive sleep apnea. No asthma during childhood. No previous history of DVT and pulmonary embolism. Chest x- ray shows no evidence of any lung masses or lesions. Pulse ox on room air is 97 %. On 4 1018 the patient is looking well. Overnight she had some issues with hypotension and the [place]-Ethan catheter was kept in place. She received a total of 500 mL of albumin. She was briefly placed on pressors and she is currently off pressors. Hemoglobin is down to 6.5. Cardiothoracic surgery is aware and there are no plans to transfuse this patient. The Mose[place] tubes are showing low output and these to his will be removed today. The patient is postop day # 2. Pleural catheters and she was will be kept in place. [place]-Ethan catheter will be removed. She is not having any significant chest pain. No cough or sputum production. Pulling approximately 1000 on incentive spirometer. Still on insulin drip for blood sugar control. Sternum stable clean and intact. No other significant events otherwise for now and will continue to follow. On 01/30/2018, patient continues to do well, she is status post CABG, postoperative day #3. Patient is on nasal cannula, denies any specific complaints, in no distress. Hemoglobin is low today, patient is being transfused. Her chest x-ray showed a left lower lobe atelectasis and small left pleural effusion noted. Basic metabolic profile is normal, renal profile is normal. Chest x-ray as noted above. Patient was reevaluated today on 01/31/2018, continues to do well, postoperative day #4. Patient is in no distress, relatively asymptomatic, doing well with incentive spirometry. Chest x-ray and labs were all reviewed. Hemoglobin is 7.4 today, otherwise other labs are unremarkable. Objective - Vital Signs Vital signs: Vital Signs Temp 98.3 F 01/31/18 12:00 Pulse 82 01/31/18 12:00 Resp 18 01/31/18 12:00 BP 111/55 01/31/18 12:00 Pulse Ox 96 01/31/18 12:00 Intake & Output 01/30/18 01/31/18 01/31/18 18:59 06:59 18:59 Intake Total 1732.992 773 609 Output Total 686 485 840 Balance 1046.992 288 -231 Weight 134.9 kg 139.6 kg 139.6 kg Intake: IV 312 338 129 LR 240 260 120 NS pressure bag 72 78 9 Intake, IV Titration 35.992 Amount Insulin Regular 100 unit 35.992 In Sodium Chloride 0.9% 100 ml @ Per Protocol IV .Q0M [facility] Rx#:[id number] Oral 600 125 480 Blood Product 685 310 Rc As-1 Unit 0 310 [id number] Rc As-1 Unit 310 [id number] Other 100 Rc As-1 Unit 100 [id number] Output: Urine 686 485 840 Other: Voiding Method Indwelling Catheter Indwelling Catheter Indwelling Catheter ABP, PAP, CO, CI - Last Documented Arterial Blood Pressure 98/32 Pulmonary Artery Pressure 29/7 Cardiac Output 8.5 Cardiac Index 3.7 - Exam - Constitutional General appearance: Revealed a 67-year-old female in no form of distress. - Respiratory Details: Lungs sounds diminished bilaterally. Respirations even, nonlabored. Currently on 2 L nasal cannula with oxygen saturation 99%. Able to achieve over 1500 on incentive spirometry. - Cardiovascular Details: S1, S2 present. Regular rate and rhythm, sinus rhythm on telemetry. - Gastrointestinal Gastrointestinal Comment(s): Abdomen soft, nontender, nondistended, obese. Active bowel sounds present 4 quadrants. Negative flatus, positive burping. Tolerating diet. - Genitourinary Genitourinary Comment(s): Mark present draining clear, yellow urine. Output 45-90 mL/h overnight. - Integumentary Integumentary Comment(s): Skin is warm and dry with evidence of good perfusion. Anterior chest incision well approximated with dry intact dressing. Left lower extremity EVH site well approximated, NAREN drain in place with minimal drainage. - Neurologic Neurologic: Present: CNII-XII intact - Musculoskeletal Musculoskeletal: Present: gait normal, strength equal bilaterally - Psychiatric Psychiatric: Present: A&O x's 3, appropriate affect, intact judgment & insight - Labs CBC & Chem 7: 01/31/18 04:35 01/31/18 04:35 Labs: Abnormal Lab Results - Last 24 Hours (Table) 01/30/18 01/30/18 01/30/18 Range/Units 04:45 13:55 15:44 RBC 2.20 L (3.80-5.40) m/uL Hgb 7.0 L* (11.4-16.0) gm/dL Hct 20.9 L (34.0-46.0) % RDW (11.5-15.5) % BUN (7-17) mg/dL Glucose (74-99) mg/dL POC Glucose (mg/dL) 175 H (75-99) mg/dL Calcium (8.4-10.2) mg/dL Total Protein (6.3-8.2) g/dL Albumin (3.5-5.0) g/dL Crossmatch See Detail 01/30/18 01/30/18 01/30/18 Range/Units 17:19 19:58 21:40 RBC 2.41 L (3.80-5.40) m/uL Hgb 7.5 L (11.4-16.0) gm/dL Hct 22.6 L (34.0-46.0) % RDW 15.8 H (11.5-15.5) % BUN (7-17) mg/dL Glucose (74-99) mg/dL POC Glucose (mg/dL) 162 H 206 H (75-99) mg/dL Calcium (8.4-10.2) mg/dL Total Protein (6.3-8.2) g/dL Albumin (3.5-5.0) g/dL Crossmatch 01/30/18 01/31/18 01/31/18 Range/Units 23:47 04:32 04:35 RBC 2.42 L (3.80-5.40) m/uL Hgb 7.4 L (11.4-16.0) gm/dL Hct 22.8 L (34.0-46.0) % RDW 16.2 H (11.5-15.5) % BUN (7-17) mg/dL Glucose (74-99) mg/dL POC Glucose (mg/dL) 166 H 171 H (75-99) mg/dL Calcium (8.4-10.2) mg/dL Total Protein (6.3-8.2) g/dL Albumin (3.5-5.0) g/dL Crossmatch 01/31/18 01/31/18 01/31/18 Range/Units 04:35 07:18 12:00 RBC (3.80-5.40) m/uL Hgb (11.4-16.0) gm/dL Hct (34.0-46.0) % RDW (11.5-15.5) % BUN 21 H (7-17) mg/dL Glucose 154 H (74-99) mg/dL POC Glucose (mg/dL) 226 H 163 H (75-99) mg/dL Calcium 8.0 L (8.4-10.2) mg/dL Total Protein 4.9 L (6.3-8.2) g/dL Albumin 2.5 L (3.5-5.0) g/dL Crossmatch Assessment and Plan Assessment: 1 multivessel coronary artery disease status post acute non-ST segment elevation myocardial infarction, the patient has undergone three-vessel bypass surgery, patient is postop day #4 2 post thoracotomy mechanical ventilation, and expected outcome following bypass surgery. 3 COPD, inactive, and stable. 4 diabetes mellitus, currently on insulin drip for blood sugar control 5 diabetic retinopathy and glaucoma 6 hypertension 7 hyperlipidemia 8 preserved LV function with a normal ejection fraction of 60% 9 left internal carotid artery stenosis estimated to be around 50-79% 10 fibromyalgia 11 GERD without esophagitis. 12 degenerative arthritis 13 anemia, and expected outcome of bypass surgery. Patient is presently receiving 1 unit of packed RBCs for a low hemoglobin of 6.0. Recommendation: Continue present supportive care measures, continue incentive spirometry, continue diuretics, maintain hemoglobin above 7.0, transfuse accordingly. We'll continue to follow. Time with Patient: Less than 30
--- NOTE | 2018-01-31 16:44 | P.CONS ---
History of Present Illness - Chief Complaint Cardiac debility - History of Present Illness I had the op to see patient for inpatient rehab consultation with regard to cardiac debility. She was admitted to [facility] January 22 with chest pain including jaw pain. Admitted with non-STEMI. On 331, patient did undergo three -vessel CABG. Seen by Dr. Gonzalez for ICU care. PT and OT has started evaluation and worked on active range of motion and note fatigues. Previous functional sick: As elicited patient 67-year-old right-handed white female who is , lives in one floor home with . Retired. Describes independent with cooking and laundry and is limited driving. does most of the driving. Describes independent with sitdown shower, gait with standard cane. Regular doctors Dr. Osborn. History of smoking and drinking but quit distant past. Review of Systems Review of systems: ENT: Denies sneezes or discharge. Eyes: Denies discharge or photophobia. Cardiac: Denies chest pain or palpitation. Pulmonary: At least mild shortness of breath. Breast: Denies discharge or lumps. Gastrointestinal: Denies nausea, emesis, constipation, diarrhea. Genitourinary: Denies discharge or frequency. Musculoskeletal: Denies muscle or bone aches. Neurologic: Weakness. Endocrine: Denies shakes or sweats. Oncology: Denies cancers. Dermatologic: Denies rash, itching, pruritus. ALLERGY/immunology: Denies sneezes, rashes. Past Medical History Past Medical History: Coronary Artery Disease (CAD), Chest Pain / Angina, Diabetes Mellitus, Fibromyalgia, GERD/Reflux, Hyperlipidemia, Hypertension, Myocardial Infarction (MN), Osteoarthritis (OA) Additional Past Medical History / Comment(s): Multivessel coronary artery disease, obesity, hypertension, hyperlipidemia, diabetes mellitus, retinopathy diabetic in nature, peripheral neuropathy, glaucoma, previous history of renal failure requiring dialysis for brief period of time and this has recovered Last Myocardial Infarction Date:: 08/2014 History of Any Multi-Drug Resistant Organisms: None Reported Past Surgical History: Cholecystectomy, Heart Catheterization, Tubal Ligation Additional Past Surgical History / Comment(s): RIGHT AND LEFT KNEE ARTHROSCOPIC , RIGHT EYE SURGERY, bilateral cataract surgery, sciatica, lap band surgery. Past Anesthesia/Blood Transfusion Reactions: No Reported Reaction Past Psychological History: Depression Additional Psychological History / Comment(s): . Smoking Status: Former smoker (STARTED SMOKING AT AGE 16 QUIT AT AGE 25 SMOKED LESS THAN A WEEK) Past Alcohol Use History: None Reported, Rare Past Drug Use History: None Reported - Past Family History Father Family Medical History: Cancer Mother Family Medical History: Diabetes Mellitus, Myocardial Infarction (MN) (At age 58.) Medications and Allergies Home Medications Medication Instructions Recorded Confirmed Type Atorvastatin [Lipitor] 80 mg PO HS 09/11/14 01/22/18 History Clopidogrel [Plavix] 75 mg PO DAILY 09/11/14 01/22/18 History Ergocalciferol [Vitamin D2 50,000 unit PO SA 09/11/14 01/22/18 History (DRISDOL)] HYDROcodone/APAP 10-325MG [[place] 2 tab PO Q4H PRN 09/11/14 01/22/18 History 10-325] Insulin Detemir [Levemir] 14 unit SQ DAILY 09/11/14 01/22/18 History Insulin Glulisine [Apidra] 18 unit SQ AC-BRKFST 09/11/14 01/22/18 History Isosorbide Mononitrate [Imdur] 60 mg PO DAILY 09/11/14 01/22/18 History Latanoprost Ophth [Xalatan 0.005%] 1 drop RIGHT EYE HS 09/11/14 01/22/18 History Metoprolol Tartrate [Lopressor] 25 mg PO BID 09/11/14 01/22/18 History Nitroglycerin Sl Tabs [Nitrostat] 0.4 mg SUBLINGUAL Q5M PRN 09/11/14 01/22/18 History Aspirin EC [Ecotrin Low Dose] 81 mg PO HS 05/22/16 01/22/18 History Fexofenadine HCl [Citlaly Allergy] 180 mg PO HS PRN 05/22/16 01/22/18 History Fluticasone Nasal [place] [Flonase 1 spray EA NOSTRIL DAILY PRN 05/22/16 01/22/18 History Nasal [place]] Multivit-Min/Iron/Folic/Lutein 1 tab PO DAILY 05/22/16 01/22/18 History [Centrum Silver Women Tablet] Citalopram Hydrobromide [CeleXA] 40 mg PO DAILY 10/22/17 01/22/18 History Ferrous Sulfate [Iron (65 MG 325 mg PO DAILY 10/22/17 01/22/18 History Elemental)] Furosemide [Lasix] 20 mg PO BID 10/22/17 01/22/18 History Hydrocortisone [Hydrocortisone 1 applic TOPICAL BID PRN 10/22/17 01/22/18 History 0.05%] Insulin Glulisine [Apidra] 14 unit SQ AC-LUNCH 10/22/17 01/22/18 History Insulin Glulisine [Apidra] 16 unit SQ AC-SUPPER 10/22/17 01/22/18 History Insulin Glulisine [Apidra] See Protocol SQ ACHS 10/22/17 01/22/18 History Insulin NPH Human Isophane 21 unit SQ HS 10/22/17 01/22/18 History [humuLIN N] Polyethylene Glycol 3350 [Miralax] 17 gm PO DAILY PRN 10/22/17 01/22/18 History Ciprofloxacin HCl [Cipro] 250 mg PO Q12HR 01/22/18 01/22/18 History Montelukast [Singulair] 10 mg PO HS 01/22/18 01/22/18 History Omeprazole 40 mg PO AC-BRKFST 01/22/18 01/22/18 History Timolol 0.5% Ophth Soln [Timoptic 1 drop BOTH EYES BID 01/22/18 01/22/18 History 0.5% Ophth Soln] Allergies Allergy/AdvReac Type Severity Reaction Status Date / Time diclofenac Allergy Unknown Verified 01/27/18 06:17 peanut Allergy PER Verified 01/27/18 06:17 ALLERGY TEST Penicillins Allergy ITCHING Verified 01/27/18 06:17 AND RED SKIN Physical Exam Vitals: Vital Signs Temp Pulse Resp BP Pulse Ox 01/31/18 15:20 86 01/31/18 15:10 84 97 01/31/18 14:00 82 17 108/52 96 01/31/18 12:00 98.3 F 82 18 111/55 96 01/31/18 11:31 72 01/31/18 11:21 72 01/31/18 10:00 76 15 111/55 93 L 01/31/18 09:42 94 L 01/31/18 09:00 85 18 98/31 94 L 01/31/18 08:13 79 01/31/18 08:00 98.1 F 79 16 151/65 100 01/31/18 07:52 76 01/31/18 07:00 80 19 108/48 92 L 01/31/18 06:00 78 21 102/38 93 L 01/31/18 05:00 82 39 H 127/52 98 01/31/18 04:00 78 18 119/57 98 01/31/18 03:00 80 18 133/55 98 01/31/18 02:00 81 19 129/53 98 01/31/18 01:00 81 19 117/56 97 01/31/18 00:00 98.5 F 81 22 124/61 98 01/30/18 23:00 79 21 107/52 97 01/30/18 22:05 105 H 14 127/53 98 01/30/18 22:00 104 H 17 127/53 98 01/30/18 21:00 105 H 24 119/56 95 01/30/18 20:33 88 01/30/18 20:20 86 01/30/18 20:00 98.6 F 89 19 126/54 97 01/30/18 19:00 83 18 120/53 98 01/30/18 18:00 99 10 L 126/50 96 01/30/18 17:45 98.2 F 85 18 126/50 97 01/30/18 17:15 98.2 F 95 22 117/49 98 01/30/18 17:05 98.5 F 107 H 19 109/50 98 01/30/18 17:00 113 H 17 109/50 100 Intake and Output 01/31/18 01/31/18 01/31/18 06:59 14:59 22:59 Intake Total 234 629 Output Total 310 840 300 Balance -76 -211 -300 Intake: IV 234 149 LR 180 140 NS pressure bag 54 9 Oral 480 Output: Urine 310 840 300 Other: Voiding Method Indwelling Catheter Indwelling Catheter Weight 139.6 kg 139.6 kg ABP, PAP, CO, CI - Last 8 Hours Arterial Blood Pressure 98/32 Arterial Blood Pressure 111/37 Skin: Good color, texture, turgor. General: Overweight build and comfortable appearance. Head: Normocephalic, atraumatic. Eyes: Symmetric. Pupils equal round. Ears: Symmetric. Hearing within normal limits. Mouth: Clear. Neck: Supple. Carotid without bruit. Cardiac: Regular rate and rhythm. Chest wound clean and dressed. Wearing harness. Lungs: Clear anteriorly and posteriorly. Abdomen: Soft active nontender. Extremities: Normal tone. Neurological: Mental status: Alert, cooperative, pleasant. Cranial nerves: Symmetric facial tone and trapezius. Motor: Can elevate limbs but at best antigravity in arms and less than antigravity in legs. Sensation: Intact throughout. DTRs: Symmetric and equal throughout. Mobility: Reports required two-person assistance for transfers from bed to Alla chair. Results CBC & Chem 7: 01/31/18 04:35 01/31/18 04:35 Labs: Abnormal Lab Results - Last 24 Hours (Table) 01/30/18 01/30/18 01/30/18 Range/Units 04:45 17:19 19:58 RBC (3.80-5.40) m/uL Hgb (11.4-16.0) gm/dL Hct (34.0-46.0) % RDW (11.5-15.5) % BUN (7-17) mg/dL Glucose (74-99) mg/dL POC Glucose (mg/dL) 162 H 206 H (75-99) mg/dL Calcium (8.4-10.2) mg/dL Total Protein (6.3-8.2) g/dL Albumin (3.5-5.0) g/dL Crossmatch See Detail 01/30/18 01/30/18 01/31/18 Range/Units 21:40 23:47 04:32 RBC 2.41 L (3.80-5.40) m/uL Hgb 7.5 L (11.4-16.0) gm/dL Hct 22.6 L (34.0-46.0) % RDW 15.8 H (11.5-15.5) % BUN (7-17) mg/dL Glucose (74-99) mg/dL POC Glucose (mg/dL) 166 H 171 H (75-99) mg/dL Calcium (8.4-10.2) mg/dL Total Protein (6.3-8.2) g/dL Albumin (3.5-5.0) g/dL Crossmatch 01/31/18 01/31/18 01/31/18 Range/Units 04:35 04:35 07:18 RBC 2.42 L (3.80-5.40) m/uL Hgb 7.4 L (11.4-16.0) gm/dL Hct 22.8 L (34.0-46.0) % RDW 16.2 H (11.5-15.5) % BUN 21 H (7-17) mg/dL Glucose 154 H (74-99) mg/dL POC Glucose (mg/dL) 226 H (75-99) mg/dL Calcium 8.0 L (8.4-10.2) mg/dL Total Protein 4.9 L (6.3-8.2) g/dL Albumin 2.5 L (3.5-5.0) g/dL Crossmatch 01/31/18 Range/Units 12:00 RBC (3.80-5.40) m/uL Hgb (11.4-16.0) gm/dL Hct (34.0-46.0) % RDW (11.5-15.5) % BUN (7-17) mg/dL Glucose (74-99) mg/dL POC Glucose (mg/dL) 163 H (75-99) mg/dL Calcium (8.4-10.2) mg/dL Total Protein (6.3-8.2) g/dL Albumin (3.5-5.0) g/dL Crossmatch Assessment and Plan (1) Non-STEMI (non-ST elevated myocardial infarction) Current Visit: Yes Status: Acute Code(s): I21.4 - NON-ST ELEVATION (NSTEMI) MYOCARDIAL INFARCTION SNOMED Code(s): 681880141 Plan: Impression: 1. Cardiac debility. 2. Non-STEMI. 3. Status post three-vessel coronary bypass. 4. Coronary artery disease and history of MN and angina. 5. Hypertension. 6. Dyslipidemia. 7. Diabetes. 8. Fibromyalgia. 9. Osteoarthritis. 10. Reflux. Comments and plan: PT and OT are ongoing but they were only able to perform active range of motion exercises a note fatigues quickly. Not currently ready for inpatient rehab. Will follow closely with yourself for possible benefit of inpatient rehab at later date.
[2018-01-31 17:18] LABS: Glucose,Whole Blood 257 mg/dL (75-99)
[2018-01-31 20:07] LABS: Glucose,Whole Blood 228 mg/dL (75-99)
[2018-01-31] MEDS: MONTELUKAST 10 MG TAB PO SCH (20:35)
[2018-01-31] MEDS: SENNOSIDES-DOCUSATE SODIUM 1 EACH TAB PO SCH (20:39)
[2018-01-31] MEDS: INSULIN NPH 300 UNIT/3 ML VIAL SQ SCH (20:39)
[2018-02-01 04:51] LABS: Albumin 2.5 g/dL (3.5-5.0); Calcium 8.4 mg/dL (8.4-10.2); HCT 24.4 % (34.0-46.0); HGB 7.9 gm/dL (11.4-16.0); MCH 30.7 pg (25.0-35.0); MCHC 32.3 g/dL (31.0-37.0); MCV 95.3 fL (80.0-100.0); Magnesium 2.5 mg/dL (1.6-2.3); Mean Platelet Volume 7.5; Platelet Count 243 k/uL (150-450); Potassium 4.6 mmol/L (3.5-5.1); RBC 2.56 m/uL (3.80-5.40); RDW 15.9 % (11.5-15.5); Total Bilirubin 0.8 mg/dL (0.2-1.3); Total Protein 5.1 g/dL (6.3-8.2); WBC 7.9 k/uL (3.8-10.6)
[2018-02-01 07:06] LABS: Glucose,Whole Blood 174 mg/dL (75-99)
[2018-02-01] MEDS: ASPIRIN 81 MG PO SCH (08:29)
[2018-02-01] MEDS: FERROUS SULFATE 325 MG TAB PO SCH ×2 (08:29→18:27)
[2018-02-01] MEDS: ATORVASTATIN 40 MG TAB PO SCH (08:29)
[2018-02-01] MEDS: PANTOPRAZOLE 40 MG TABLET PO SCH (08:29)
[2018-02-01] MEDS: ASCORBIC ACID 500 MG TAB PO SCH ×2 (08:29→18:27)
[2018-02-01] MEDS: METOPROLOL TARTRATE 12.5 MG TAB PO SCH (08:30)
[2018-02-01] MEDS: CLOPIDOGREL 75 MG TAB PO SCH (08:30)
[2018-02-01] MEDS: HEPARIN SODIUM,PORCINE 5,000 UNIT/ML 1 ML VIAL SQ SCH ×4 (08:30→23:26)
[2018-02-01] MEDS: CITALOPRAM HYDROBROMIDE 20 MG TAB PO SCH (08:30)
--- NOTE | 2018-02-01 08:34 | P.PN ---
Progress Note - Text The patient is a 67-year-old female who has undergone coronary artery bypass surgery about 4 days previous after presenting with a non-Q-wave myocardial infarction associated with left main and triple-vessel disease. She continues to be in the intensive care unit. She is sitting up in the chair at the side of the bed with her . States she continues to feel somewhat better. Last vital signs reveal temperature 98.6 with a pulse of 85 and respirations of 14. Blood pressure 121/54. Neurologically she is alert and oriented. No acute respiratory distress noted. Laboratory Hemoglobin has improved to 7.9 with transfusions. White count is 7.9 with a platelet count of 243. Sodium is 141 with potassium 4.6. BUN of 20 with creatinine 0.8 given her GFR of 77. Blood sugar was 133. Albumin low at 2.5. Chest x-ray Official report pending but overall appears improved from previous to my eyes. Impressions and plans Continue of present progress as per surgery, pulmonary medicine and cardiology. Discussed with patient, spouse and nursing staff this morning. Anticipating transfer to cardiac floor where with physical therapy she can continue increasing her activity. She has been evaluated by rehab medicine for possible inpatient rehab pending further clinical improvement. May need further adjustments on insulin therapy when she gets to the cardiac floor. We'll continue to monitor.
[2018-02-01] MEDS ORDERED: FUROSEMIDE 10 MG/ML 2 ML VIAL IV STA (08:50)
[2018-02-01] MEDS: IPRATROPIUM-ALBUTEROL 3 ML NEB INHALATION SCH (09:19)
[2018-02-01] MEDS: METOPROLOL TARTRATE 25 MG TAB PO SCH ×2 (09:22→20:39)
--- NOTE | 2018-02-01 09:24 | XR ---
EXAMINATION TYPE: XR chest 1V portable DATE OF EXAM: 02/01/2018 COMPARISON: 01/31/2018 HISTORY: Postop CABG TECHNIQUE: Single frontal view of the chest is obtained. FINDINGS: Heart is enlarged and is bilateral consolidation and pleural effusion stable in appearance . Central interstitial pattern noted. No pneumothorax. Postoperative changes seen. IMPRESSION: 1. Stable bilateral consolidation and small pleural effusion. Correlate for mild central venous conge stion.
--- NOTE | 2018-02-01 09:44 | P.PN ---
Subjective Progress Note Date: 02/01/18 Principal diagnosis: Severe coronary artery disease including left main stenosis of 60%, NSTEMI. Previous medical history of coronary artery disease with previous myocardial infarction 2013, hypertension, hyperlipidemia, fibromyalgia, depression, left carotid stenosis greater than 70%, previous tobacco dependence with the current FEV1 of 104% predicted, obesity with history of lap band surgery, renal failure with 2 treatments of hemodialysis, GERD, and diabetes mellitus type tube with current hemoglobin A1c of 7.1%. POD #5 urgent coronary artery bypass grafting 3 vessels, left internal mammary artery to left anterior descending artery, reverse saphenous vein graft to the posterior descending artery, reverse saphenous vein graft to the distal obtuse marginal artery. Endoscopic vein harvesting of the left greater saphenous vein. Epi-aortic ultrasound. Intraoperative transesophageal echocardiogram. Graft flow measurement using the [employer] system. Lysis of adhesions. Postoperative acute blood loss anemia, and expected outcome of surgery given cardiopulmonary bypass. Patient's currently sitting up in a recliner in no acute distress. States sternal pain is controlled on current medication regimen. No other complaints at this time. Ambulated in room with physical therapy. Objective - Vital Signs Vital signs: Vital Signs Temp 98.6 F 02/01/18 04:00 Pulse 85 02/01/18 07:00 Resp 8 L 02/01/18 07:00 BP 121/54 02/01/18 07:00 Pulse Ox 91 L 02/01/18 07:00 Intake & Output 01/31/18 02/01/18 02/01/18 18:59 06:59 18:59 Intake Total 869 350 Output Total 1375 1 0 Balance -506 349 0 Weight 139.6 kg 139.6 kg Intake: IV 149 LR 140 NS pressure bag 9 Oral 720 350 Output: Urine 1375 1 0 Other: Voiding Method Indwelling Catheter Bedside Commode # Voids 1 ABP, PAP, CO, CI - Last Documented Arterial Blood Pressure 98/32 Pulmonary Artery Pressure 29/7 Cardiac Output 8.5 Cardiac Index 3.7 - Constitutional General appearance: Present: cooperative, no acute distress, obese - Respiratory Details: Lungs sounds diminished bilaterally. Respirations even, nonlabored. Currently on room air infection saturations 96%. Oxygen level does dip down to 90% when patient is sleeping. Able to achieve 1500 mL on her incentive spirometry. - Cardiovascular Details: S1, S2 present. Regular rate and rhythm, sinus rhythm on telemetry. Sternum stable. Palpable peripheral pulses bilaterally. Trace bilateral lower extremity edema present. No calf pain or tenderness noted. Heart hugger in place with patient demonstrating appropriate use. Antiembolism stockings, SCDs present. - Gastrointestinal Gastrointestinal Comment(s): Abdomen soft, nontender, nondistended, obese. Active bowel sounds 4 quadrants. Tolerating diet. Positive flatus, negative BM. - Genitourinary Genitourinary Comment(s): Mark discontinued yesterday. Voiding clear, yellow urine. - Integumentary Integumentary Comment(s): Skin is warm and dry with evidence of good perfusion. Anterior chest incision well approximated, covered with clean, dry, intact dressing. Left lower extremity EVH site well approximated. - Neurologic Neurologic: Present: CNII-XII intact - Musculoskeletal Musculoskeletal: Present: generalized weakness, strength equal bilaterally - Psychiatric Psychiatric: Present: A&O x's 3, appropriate affect, intact judgment & insight - Allied health notes Allied health notes reviewed: nursing - Labs CBC & Chem 7: 02/01/18 04:08 02/01/18 04:08 Labs: Abnormal Lab Results - Last 24 Hours (Table) 01/31/18 01/31/18 01/31/18 Range/Units 12:00 17:16 20:05 RBC (3.80-5.40) m/uL Hgb (11.4-16.0) gm/dL Hct (34.0-46.0) % RDW (11.5-15.5) % BUN (7-17) mg/dL Glucose (74-99) mg/dL POC Glucose (mg/dL) 163 H 257 H 228 H (75-99) mg/dL Magnesium (1.6-2.3) mg/dL Total Protein (6.3-8.2) g/dL Albumin (3.5-5.0) g/dL 02/01/18 02/01/18 02/01/18 Range/Units 04:08 04:08 07:04 RBC 2.56 L (3.80-5.40) m/uL Hgb 7.9 L (11.4-16.0) gm/dL Hct 24.4 L (34.0-46.0) % RDW 15.9 H (11.5-15.5) % BUN 20 H (7-17) mg/dL Glucose 133 H (74-99) mg/dL POC Glucose (mg/dL) 174 H (75-99) mg/dL Magnesium 2.5 H (1.6-2.3) mg/dL Total Protein 5.1 L (6.3-8.2) g/dL Albumin 2.5 L (3.5-5.0) g/dL - Imaging and Cardiology Chest x-ray: report reviewed, image reviewed Assessment and Plan (1) History of coronary artery disease Current Visit: Yes Status: Chronic Code(s): Z86.79 - PERSONAL HISTORY OF OTHER DISEASES OF THE CIRCULATORY SYSTEM SNOMED Code(s): 795621246 (2) Hyperlipidemia Current Visit: Yes Status: Chronic Code(s): E78.5 - HYPERLIPIDEMIA, UNSPECIFIED SNOMED Code(s): 81608504 (3) Hypertension Current Visit: Yes Status: Chronic Code(s): I10 - ESSENTIAL (PRIMARY) HYPERTENSION SNOMED Code(s): 15061763 (4) Morbid obesity with BMI of 40.0-44.9, adult Current Visit: Yes Status: Chronic Code(s): E66.01 - MORBID (SEVERE) OBESITY DUE TO EXCESS CALORIES; Z68.41 - BODY MASS INDEX (BMI) 40.0-44.9, ADULT SNOMED Code(s): 756372176 (5) Non-STEMI (non-ST elevated myocardial infarction) Current Visit: Yes Status: Acute Code(s): I21.4 - NON-ST ELEVATION (NSTEMI) MYOCARDIAL INFARCTION SNOMED Code(s): 041676348 (6) Diabetes mellitus Current Visit: Yes Status: Chronic Code(s): E11.9 - TYPE 2 DIABETES MELLITUS WITHOUT COMPLICATIONS SNOMED Code(s): 40995497 (7) Left main coronary artery disease Current Visit: Yes Status: Chronic Code(s): I25.10 - ATHSCL HEART DISEASE OF [place] CORONARY ARTERY W/O ANG PCTRS SNOMED Code(s): 009375457 (8) Tobacco dependence in remission Current Visit: No Status: Resolved Code(s): F17.201 - NICOTINE DEPENDENCE, UNSPECIFIED, IN REMISSION SNOMED Code(s): 273332245 (9) Carotid stenosis, left Current Visit: Yes Status: Chronic Code(s): I65.22 - OCCLUSION AND STENOSIS OF LEFT CAROTID ARTERY SNOMED Code(s): 708176743355103 Plan: 1. Continue low-dose aspirin, statin, Plavix, subcu heparin, beta kris. Will increase beta kris as tolerated. 2. Wean O2 as tolerated. Encourage incentive spirometry. Encourage continued smoking cessation. 3. GI/DVT prophylaxis. 4. Increase activity, ambulate in hallway. PT/OT/Cardiac rehab following. 5. Will monitor daily labs and x-rays. 6. Diabetic management per primary care service. 7. Will give IV Lasix today. 8. May transfer to E[facility] selective care when bed available. 9. More recommendations to follow. Dr. Morris consulted for inpatient rehab upon discharge. Discharge planning in progress. Anticipate discharge in the next 24 hours. Time with Patient: Greater than 30
[2018-02-01] MEDS: INSULN ASP PRT/INSULIN ASPART 100 UNIT/ML 10 ML VIAL SQ SCH (10:44)
[2018-02-01] MEDS: INSULIN ASPART 100 UNIT/ML 1 ML 10 ML VIAL SQ SCH ×5 (10:45→20:46)
[2018-02-01 12:16] LABS: Glucose,Whole Blood 185 mg/dL (75-99)
--- NOTE | 2018-02-01 12:32 | P.PN ---
Subjective Progress Note Date: 02/01/18 Principal diagnosis: Status post open heart This is a pleasant 67-year-old female patient who presented to the hospital with a chest discomfort and ruled in for acute non-ST elevation myocardial infarction. She underwent a heart catheterization by Dr. Brady and was found to have severe left main disease. She underwent CABG 3 with CUMMINGS to LAD, SVG to PDA, and SVG to OM. Hemodynamically she is a slightly tachycardic with a good blood pressure. The dose of metoprolol was increased earlier today. The hemoglobin continues to be stable after the 2 units of packed RBC. The patient is in process to be transferred into selective floor. She continues to be on dual antiplatelet therapy along with a statin. Objective - Vital Signs Vital signs: Vital Signs Temp 98.6 F 02/01/18 04:00 Pulse 85 02/01/18 07:00 Resp 8 L 02/01/18 07:00 BP 121/54 02/01/18 07:00 Pulse Ox 91 L 02/01/18 07:00 Intake & Output 01/31/18 02/01/18 02/01/18 18:59 06:59 18:59 Intake Total 869 350 Output Total 1375 1 0 Balance -506 349 0 Weight 139.6 kg 139.6 kg Intake: IV 149 LR 140 NS pressure bag 9 Oral 720 350 Output: Urine 1375 1 0 Other: Voiding Method Indwelling Catheter Bedside Commode # Voids 1 ABP, PAP, CO, CI - Last Documented Arterial Blood Pressure 98/32 Pulmonary Artery Pressure 29/7 Cardiac Output 8.5 Cardiac Index 3.7 - Constitutional General appearance: Present: no acute distress - Respiratory Respiratory: bilateral: CTA - Cardiovascular Rhythm: regular Heart sounds: normal: S1, S2 - Labs CBC & Chem 7: 02/01/18 04:08 02/01/18 04:08 Labs: Abnormal Lab Results - Last 24 Hours (Table) 01/31/18 01/31/18 02/01/18 Range/Units 17:16 20:05 04:08 RBC 2.56 L (3.80-5.40) m/uL Hgb 7.9 L (11.4-16.0) gm/dL Hct 24.4 L (34.0-46.0) % RDW 15.9 H (11.5-15.5) % BUN (7-17) mg/dL Glucose (74-99) mg/dL POC Glucose (mg/dL) 257 H 228 H (75-99) mg/dL Magnesium (1.6-2.3) mg/dL Total Protein (6.3-8.2) g/dL Albumin (3.5-5.0) g/dL 02/01/18 02/01/18 02/01/18 Range/Units 04:08 07:04 12:15 RBC (3.80-5.40) m/uL Hgb (11.4-16.0) gm/dL Hct (34.0-46.0) % RDW (11.5-15.5) % BUN 20 H (7-17) mg/dL Glucose 133 H (74-99) mg/dL POC Glucose (mg/dL) 174 H 185 H (75-99) mg/dL Magnesium 2.5 H (1.6-2.3) mg/dL Total Protein 5.1 L (6.3-8.2) g/dL Albumin 2.5 L (3.5-5.0) g/dL Assessment and Plan Assessment: Assessment #1 severe underlying CAD and status post CABG as described above Plan #1 continue the current medical treatment which included dual antiplatelet as well as statin and beta kris #2 monitor the kidney function and electrolytes as well as a hemoglobin #3 continue following up with the patient
[2018-02-01] MEDS: MULTIVITAMINS, THERA 1 EACH TAB PO SCH (13:20)
--- NOTE | 2018-02-01 13:44 | P.PN ---
Subjective Progress Note Date: 02/01/18 Principal diagnosis: Acute non-ST segment elevation myocardial infarction, status post CABG postoperative day #5 67-year-old female patient with known history of coronary artery disease and previous MA back in 2013 in addition to left internal carotid artery stenosis approximately 50-79% based on ultrasound in addition to history of smoking which she quit more than 30 years ago. The patient has other comorbidities including hypertension and hyperlipidemia and obesity. The patient came into the hospital because of chest tightness and pain radiating to her jaw. She was also feeling nauseated and she had a bout of emesis. She ruled in for acute MA. The troponin was elevated and the highest was at 15.4. Based on that a cardiac catheterization was done and it showed a 60% stenosis of the left main, 95% stenosis of the right coronary artery, totally occluded circumflex coronary artery, 90% stenosis of the proximal left anterior descending, 60% stenosis in the mid anterior descending. The LV angiogram showed a normal ejection fraction of 60%. The patient was kept on IV heparin. She is currently being evaluated for cardiac bypass surgery. This is being considered yet is currently on hold knowing that the patient has taken Plavix. Follow pulmonary standpoint, the patient may have an underlying COPD although this has not been officially diagnosed. Her FEV1 was measured to be at around 35%. This was a suboptimal effort. She claims that she is able to climb a flight of stairs with some limited difficulties. No cough. No sputum production. No hemoptysis. Pleurisy. No swelling lower extremities. No recurrent pneumonias. No reported history of any obstructive sleep apnea. No asthma during childhood. No previous history of DVT and pulmonary embolism. Chest x- ray shows no evidence of any lung masses or lesions. Pulse ox on room air is 97 %. On 4 1018 the patient is looking well. Overnight she had some issues with hypotension and the [place] catheter was kept in place. She received a total of 500 mL of albumin. She was briefly placed on pressors and she is currently off pressors. Hemoglobin is down to 6.5. Cardiothoracic surgery is aware and there are no plans to transfuse this patient. The [place] tubes are showing low output and these to his will be removed today. The patient is postop day # 2. Pleural catheters and she was will be kept in place. [place] catheter will be removed. She is not having any significant chest pain. No cough or sputum production. Pulling approximately 1000 on incentive spirometer. Still on insulin drip for blood sugar control. Sternum stable clean and intact. No other significant events otherwise for now and will continue to follow. On 01/30/2018, patient continues to do well, she is status post CABG, postoperative day #3. Patient is on nasal cannula, denies any specific complaints, in no distress. Hemoglobin is low today, patient is being transfused. Her chest x-ray showed a left lower lobe atelectasis and small left pleural effusion noted. Basic metabolic profile is normal, renal profile is normal. Chest x-ray as noted above. Patient was reevaluated today on 01/31/2018, continues to do well, postoperative day #4. Patient is in no distress, relatively asymptomatic, doing well with incentive spirometry. Chest x-ray and labs were all reviewed. Hemoglobin is 7.4 today, otherwise other labs are unremarkable. On 02/01/2018, patient continues to do well, she is postoperative day #5. Patient is sitting in a chair, in no form of distress. Likely will transfer the patient out of the ICU to a monitor bed on selective today. Relatively asymptomatic. All labs were reviewed hemoglobin is 7.9 basic metabolic profile is normal. Chest x-ray was also reviewed, and it showed small pleural effusion and atelectasis at the bases. Mild central venous congestion is also noted. Objective - Vital Signs Vital signs: Vital Signs Temp 98.6 F 02/01/18 04:00 Pulse 85 02/01/18 07:00 Resp 8 L 02/01/18 07:00 BP 121/54 02/01/18 07:00 Pulse Ox 91 L 02/01/18 07:00 Intake & Output 01/31/18 02/01/18 02/01/18 18:59 06:59 18:59 Intake Total 869 350 Output Total 1375 1 0 Balance -506 349 0 Weight 139.6 kg 139.6 kg Intake: IV 149 LR 140 NS pressure bag 9 Oral 720 350 Output: Urine 1375 1 0 Other: Voiding Method Indwelling Catheter Bedside Commode # Voids 1 ABP, PAP, CO, CI - Last Documented Arterial Blood Pressure 98/32 Pulmonary Artery Pressure 29/7 Cardiac Output 8.5 Cardiac Index 3.7 - Exam - Constitutional General appearance: Revealed a 67-year-old female in no form of distress. - Respiratory Details: Lungs sounds diminished bilaterally. Respirations even, nonlabored. Currently on 2 L nasal cannula with oxygen saturation 99%. Doing quite well with incentive spirometry. - Cardiovascular Details: S1, S2 present. Regular rate and rhythm, sinus rhythm on telemetry. - Gastrointestinal Gastrointestinal Comment(s): Abdomen soft, nontender, nondistended, obese. Active bowel sounds present 4 quadrants. Positive flatulence. - Genitourinary Genitourinary Comment(s): Mark present draining clear, yellow urine. - Integumentary Integumentary Comment(s): Skin is warm and dry with evidence of good perfusion. Anterior chest incision well approximated with dry intact dressing. Left lower extremity EVH site well approximated, NAREN drain in place with minimal drainage. - Neurologic Neurologic: Present: CNII-XII intact - Musculoskeletal Musculoskeletal: Present: gait normal, strength equal bilaterally - Psychiatric Psychiatric: Present: A&O x's 3, appropriate affect, intact judgment & insight - Labs CBC & Chem 7: 02/01/18 04:08 02/01/18 04:08 Labs: Abnormal Lab Results - Last 24 Hours (Table) 01/31/18 01/31/18 02/01/18 Range/Units 17:16 20:05 04:08 RBC 2.56 L (3.80-5.40) m/uL Hgb 7.9 L (11.4-16.0) gm/dL Hct 24.4 L (34.0-46.0) % RDW 15.9 H (11.5-15.5) % BUN (7-17) mg/dL Glucose (74-99) mg/dL POC Glucose (mg/dL) 257 H 228 H (75-99) mg/dL Magnesium (1.6-2.3) mg/dL Total Protein (6.3-8.2) g/dL Albumin (3.5-5.0) g/dL 02/01/18 02/01/18 02/01/18 Range/Units 04:08 07:04 12:15 RBC (3.80-5.40) m/uL Hgb (11.4-16.0) gm/dL Hct (34.0-46.0) % RDW (11.5-15.5) % BUN 20 H (7-17) mg/dL Glucose 133 H (74-99) mg/dL POC Glucose (mg/dL) 174 H 185 H (75-99) mg/dL Magnesium 2.5 H (1.6-2.3) mg/dL Total Protein 5.1 L (6.3-8.2) g/dL Albumin 2.5 L (3.5-5.0) g/dL Assessment and Plan Assessment: 1 multivessel coronary artery disease status post acute non-ST segment elevation myocardial infarction, the patient has undergone three-vessel bypass surgery, patient is postop day #5 2 post thoracotomy mechanical ventilation, and expected outcome following bypass surgery. 3 COPD, inactive, and stable. 4 diabetes mellitus, currently on insulin drip for blood sugar control 5 diabetic retinopathy and glaucoma 6 hypertension 7 hyperlipidemia 8 preserved LV function with a normal ejection fraction of 60% 9 left internal carotid artery stenosis estimated to be around 50-79% 10 fibromyalgia 11 GERD without esophagitis. 12 degenerative arthritis 13 anemia, and expected outcome of bypass surgery. Patient is presently receiving 1 unit of packed RBCs for a low hemoglobin of 6.0. Recommendation: Continue present supportive care measures, continue incentive spirometry, ambulation, continue diuretics, transfer to selective/monitor bed today. We'll continue to follow. Time with Patient: Less than 30
[2018-02-01 17:17] LABS: Glucose,Whole Blood 200 mg/dL (75-99)
[2018-02-01] MEDS: HYDROcodone/APAP 5-325MG 1 EACH TAB PO PRN (19:14)
[2018-02-01] MEDS: MONTELUKAST 10 MG TAB PO SCH (20:39)
[2018-02-01] MEDS: SENNOSIDES-DOCUSATE SODIUM 1 EACH TAB PO SCH (20:39)
[2018-02-01 20:40] LABS: Glucose,Whole Blood 202 mg/dL (75-99)
[2018-02-01] MEDS: INSULIN NPH 300 UNIT/3 ML VIAL SQ SCH (20:45)
[2018-02-02] MEDS: HYDROcodone/APAP 5-325MG 1 EACH TAB PO PRN ×2 (05:29→16:53)
[2018-02-02 05:37] LABS: HCT 26.1 % (34.0-46.0); HGB 8.4 gm/dL (11.4-16.0); Hypochromasia Slight; MCH 30.4 pg (25.0-35.0); Mean Platelet Volume 7.3; Platelet Count 310 k/uL (150-450); RBC 2.75 m/uL (3.80-5.40); RDW 15.9 % (11.5-15.5); WBC 7.8 k/uL (3.8-10.6)
[2018-02-02 05:52] LABS: Albumin 2.8 g/dL (3.5-5.0); Calcium 8.4 mg/dL (8.4-10.2); Magnesium 2.2 mg/dL (1.6-2.3); Potassium 4.3 mmol/L (3.5-5.1); Total Bilirubin 0.9 mg/dL (0.2-1.3); Total Protein 5.6 g/dL (6.3-8.2)
[2018-02-02 07:58] LABS: Glucose,Whole Blood 142 mg/dL (75-99)
--- NOTE | 2018-02-02 08:19 | P.PN ---
Subjective Progress Note Date: 02/02/18 Principal diagnosis: Severe coronary artery disease including left main stenosis of 60%, NSTEMI. Previous medical history of coronary artery disease with previous myocardial infarction 2013, hypertension, hyperlipidemia, fibromyalgia, depression, left carotid stenosis greater than 70%, previous tobacco dependence with the current FEV1 of 104% predicted, obesity with history of lap band surgery, renal failure with 2 treatments of hemodialysis, GERD, and diabetes mellitus type tube with current hemoglobin A1c of 7.1%. POD #6 urgent coronary artery bypass grafting 3 vessels, left internal mammary artery to left anterior descending artery, reverse saphenous vein graft to the posterior descending artery, reverse saphenous vein graft to the distal obtuse marginal artery. Endoscopic vein harvesting of the left greater saphenous vein. Epi-aortic ultrasound. Intraoperative transesophageal echocardiogram. Graft flow measurement using the [employer] system. Lysis of adhesions. Postoperative acute blood loss anemia, and expected outcome of surgery given cardiopulmonary bypass. Patient's currently sitting up in a recliner in no acute distress. States sternal pain is controlled on current medication regimen. No other complaints at this time. Has ambulated in her room. Objective - Vital Signs Vital signs: Vital Signs Temp 98 F 02/02/18 04:00 Pulse 83 02/02/18 06:00 Resp 10 L 02/02/18 06:00 BP 136/49 02/02/18 06:00 Pulse Ox 94 L 02/02/18 06:00 Intake & Output 02/01/18 02/02/18 02/02/18 18:59 06:59 18:59 Intake Total 578 Output Total 0 600 Balance 578 -600 Weight 135.5 kg Intake: IV 78 LR 60 NS pressure bag 18 Oral 500 Output: Urine 0 600 Other: Voiding Method Bedside Commode Bedside Commode # Voids 1 ABP, PAP, CO, CI - Last Documented Arterial Blood Pressure 98/32 Pulmonary Artery Pressure 29/7 Cardiac Output 8.5 Cardiac Index 3.7 - Constitutional General appearance: Present: cooperative, no acute distress, obese - Respiratory Details: Lungs sounds diminished bilaterally. Respirations even, nonlabored. Currently on room air with saturations 93%. Able to achieve 2250 mL on her incentive spirometry. - Cardiovascular Details: S1, S2 present. Regular rate and rhythm, sinus rhythm on telemetry. Sternum stable. Palpable peripheral pulses bilaterally. Trace bilateral lower extremity edema present. No calf pain or tenderness noted. Heart hugger in place with patient demonstrating appropriate use. Antiembolism stockings, SCDs present. - Gastrointestinal Gastrointestinal Comment(s): Abdomen soft, nontender, nondistended, obese. Active bowel sounds 4 quadrants. Tolerating diet. Positive bowel movement yesterday. - Genitourinary Genitourinary Comment(s): Continues to void clear, yellow urine. - Integumentary Integumentary Comment(s): Skin is warm and dry with evidence of good perfusion. Anterior chest incision well approximated, covered with clean, dry, intact dressing. Left lower extremity EVH site well approximated. - Neurologic Neurologic: Present: CNII-XII intact - Musculoskeletal Musculoskeletal Comment(s): Patient does need to ambulate with cane. Musculoskeletal: Present: generalized weakness, strength equal bilaterally - Psychiatric Psychiatric: Present: A&O x's 3, appropriate affect, intact judgment & insight - Allied health notes Allied health notes reviewed: nursing - Labs CBC & Chem 7: 02/02/18 04:56 02/02/18 04:56 Labs: Abnormal Lab Results - Last 24 Hours (Table) 02/01/18 02/01/18 02/01/18 Range/Units 12:15 17:15 20:38 RBC (3.80-5.40) m/uL Hgb (11.4-16.0) gm/dL Hct (34.0-46.0) % RDW (11.5-15.5) % POC Glucose (mg/dL) 185 H 200 H 202 H (75-99) mg/dL Total Protein (6.3-8.2) g/dL Albumin (3.5-5.0) g/dL 02/02/18 02/02/18 02/02/18 Range/Units 04:56 04:56 07:54 RBC 2.75 L (3.80-5.40) m/uL Hgb 8.4 L (11.4-16.0) gm/dL Hct 26.1 L (34.0-46.0) % RDW 15.9 H (11.5-15.5) % POC Glucose (mg/dL) 142 H (75-99) mg/dL Total Protein 5.6 L (6.3-8.2) g/dL Albumin 2.8 L (3.5-5.0) g/dL - Imaging and Cardiology Chest x-ray: image reviewed Assessment and Plan (1) History of coronary artery disease Current Visit: Yes Status: Chronic Code(s): Z86.79 - PERSONAL HISTORY OF OTHER DISEASES OF THE CIRCULATORY SYSTEM SNOMED Code(s): 290980943 (2) Hyperlipidemia Current Visit: Yes Status: Chronic Code(s): E78.5 - HYPERLIPIDEMIA, UNSPECIFIED SNOMED Code(s): 45531489 (3) Hypertension Current Visit: Yes Status: Chronic Code(s): I10 - ESSENTIAL (PRIMARY) HYPERTENSION SNOMED Code(s): 23301119 (4) Morbid obesity with BMI of 40.0-44.9, adult Current Visit: Yes Status: Chronic Code(s): E66.01 - MORBID (SEVERE) OBESITY DUE TO EXCESS CALORIES; Z68.41 - BODY MASS INDEX (BMI) 40.0-44.9, ADULT SNOMED Code(s): 393768739 (5) Non-STEMI (non-ST elevated myocardial infarction) Current Visit: Yes Status: Acute Code(s): I21.4 - NON-ST ELEVATION (NSTEMI) MYOCARDIAL INFARCTION SNOMED Code(s): 837049098 (6) Diabetes mellitus Current Visit: Yes Status: Chronic Code(s): E11.9 - TYPE 2 DIABETES MELLITUS WITHOUT COMPLICATIONS SNOMED Code(s): 16375469 (7) Left main coronary artery disease Current Visit: Yes Status: Chronic Code(s): I25.10 - ATHSCL HEART DISEASE OF [place] CORONARY ARTERY W/O ANG PCTRS SNOMED Code(s): 068510595 (8) Tobacco dependence in remission Current Visit: No Status: Resolved Code(s): F17.201 - NICOTINE DEPENDENCE, UNSPECIFIED, IN REMISSION SNOMED Code(s): 681555607 (9) Carotid stenosis, left Current Visit: Yes Status: Chronic Code(s): I65.22 - OCCLUSION AND STENOSIS OF LEFT CAROTID ARTERY SNOMED Code(s): 644451277293280 Plan: 1. Continue low-dose aspirin, statin, Plavix, subcu heparin, beta kris. Will increase beta kris as tolerated. 2. Encourage incentive spirometry. Encourage continued smoking cessation. 3. GI/DVT prophylaxis. 4. Increase activity, ambulate in hallway. PT/OT/Cardiac rehab following. 5. Will monitor daily labs and x-rays. 6. Diabetic management per primary care service. 7. Will give IV Lasix today. 8. May transfer to E[facility] care when bed available. 9. More recommendations to follow. Dr. Morris consulted for inpatient rehab upon discharge. Discharge planning in progress. Anticipate discharge as soon as patient has a bed and insurance authorization is approved Time with Patient: Greater than 30
--- NOTE | 2018-02-02 08:39 | P.PN ---
Progress Note - Text The patient is a 67-year-old female who has undergone coronary artery bypass surgery 5 days previous after initially presenting with a non-Q-wave myocardial infarction that was associated with left main and triple-vessel disease. She is presently in the intensive care unit. She is sitting up at the side of the bed in a chair. She has partially eating her breakfast. She denies any unusual shortness of breath or pain. No nausea or vomiting at this time. Vital signs reveal temperature of 98 with a pulse of 83 and a respiratory rate of 10-14 with a blood pressure 136 /49. Percent saturation 94 Lungs are generally clear although diminished at bases. Heart tones were regular. Abdomen nontender. No unusual distal edema. Compression appliances in place. No focal neurological changes. Laboratory White count 7.8 with a hemoglobin 8.4 and a platelet count of 310 Basic metabolic panel was unremarkable except for blood sugar 142. Potassium was 4.3. BUN of 17 with creatinine 0.82 given her GFR 74. Albumin 2.8 Impressions and plans Patient continues to slowly improve post coronary artery bypass surgery. Did discuss with the patient and nursing staff regarding insulin changes to better control her blood sugars and more closely in line with what patient does at home. Anticipating possible discharge to inpatient rehab.
--- NOTE | 2018-02-02 09:03 | XR ---
EXAMINATION TYPE: XR chest 2V DATE OF EXAM: 02/02/2018 COMPARISON: 02/01/2018 TECHNIQUE: PA and lateral views submitted. HISTORY: Post cardiac surgery FINDINGS: Heart is enlarged and is bilateral consolidation and pleural effusion stable in appearance. Central i nterstitial pattern noted. No pneumothorax. Postoperative changes seen. IMPRESSION: 1. Stable bilateral consolidation and small pleural effusion. Correlate for mild central venous conge stion.
[2018-02-02] MEDS: ASCORBIC ACID 500 MG TAB PO SCH ×2 (09:19→16:53)
[2018-02-02] MEDS: FERROUS SULFATE 325 MG TAB PO SCH ×3 (09:19→19:10)
[2018-02-02] MEDS: HEPARIN SODIUM,PORCINE 5,000 UNIT/ML 1 ML VIAL SQ SCH ×2 (09:20→20:54)
[2018-02-02] MEDS: ASPIRIN 81 MG PO SCH (09:20)
[2018-02-02] MEDS: ATORVASTATIN 40 MG TAB PO SCH (09:20)
[2018-02-02] MEDS: CITALOPRAM HYDROBROMIDE 20 MG TAB PO SCH ×2 (09:20→19:10)
[2018-02-02] MEDS: METOPROLOL TARTRATE 25 MG TAB PO SCH ×3 (09:21→21:23)
[2018-02-02] MEDS: INSULIN DETEMIR 100 UNIT/ML 10 ML VIAL SQ SCH ×2 (09:22→19:10)
[2018-02-02] MEDS: INSULIN ASPART 100 UNIT/ML 1 ML 10 ML VIAL SQ SCH ×6 (09:25→21:24)
[2018-02-02] MEDS: PANTOPRAZOLE 40 MG TABLET PO SCH ×2 (09:26→19:10)
[2018-02-02] MEDS: INSULN ASP PRT/INSULIN ASPART 100 UNIT/ML 10 ML VIAL SQ SCH (10:36)
[2018-02-02] MEDS: CLOPIDOGREL 75 MG TAB PO SCH (10:36)
--- NOTE | 2018-02-02 11:49 | P.PN ---
Subjective Progress Note Date: 02/02/18 Principal diagnosis: Acute non-ST segment elevation myocardial infarction, status post CABG postoperative day #6 67-year-old female patient with known history of coronary artery disease and previous AK back in 2013 in addition to left internal carotid artery stenosis approximately 50-79% based on ultrasound in addition to history of smoking which she quit more than 30 years ago. The patient has other comorbidities including hypertension and hyperlipidemia and obesity. The patient came into the hospital because of chest tightness and pain radiating to her jaw. She was also feeling nauseated and she had a bout of emesis. She ruled in for acute AK. The troponin was elevated and the highest was at 15.4. Based on that a cardiac catheterization was done and it showed a 60% stenosis of the left main, 95% stenosis of the right coronary artery, totally occluded circumflex coronary artery, 90% stenosis of the proximal left anterior descending, 60% stenosis in the mid anterior descending. The LV angiogram showed a normal ejection fraction of 60%. The patient was kept on IV heparin. She is currently being evaluated for cardiac bypass surgery. This is being considered yet is currently on hold knowing that the patient has taken Plavix. Follow pulmonary standpoint, the patient may have an underlying COPD although this has not been officially diagnosed. Her FEV1 was measured to be at around 35%. This was a suboptimal effort. She claims that she is able to climb a flight of stairs with some limited difficulties. No cough. No sputum production. No hemoptysis. Pleurisy. No swelling lower extremities. No recurrent pneumonias. No reported history of any obstructive sleep apnea. No asthma during childhood. No previous history of DVT and pulmonary embolism. Chest x- ray shows no evidence of any lung masses or lesions. Pulse ox on room air is 97 %. On 4 1018 the patient is looking well. Overnight she had some issues with hypotension and the [place] catheter was kept in place. She received a total of 500 mL of albumin. She was briefly placed on pressors and she is currently off pressors. Hemoglobin is down to 6.5. Cardiothoracic surgery is aware and there are no plans to transfuse this patient. The [place] tubes are showing low output and these to his will be removed today. The patient is postop day # 2. Pleural catheters and she was will be kept in place. [place] catheter will be removed. She is not having any significant chest pain. No cough or sputum production. Pulling approximately 1000 on incentive spirometer. Still on insulin drip for blood sugar control. Sternum stable clean and intact. No other significant events otherwise for now and will continue to follow. On 01/30/2018, patient continues to do well, she is status post CABG, postoperative day #3. Patient is on nasal cannula, denies any specific complaints, in no distress. Hemoglobin is low today, patient is being transfused. Her chest x-ray showed a left lower lobe atelectasis and small left pleural effusion noted. Basic metabolic profile is normal, renal profile is normal. Chest x-ray as noted above. Patient was reevaluated today on 01/31/2018, continues to do well, postoperative day #4. Patient is in no distress, relatively asymptomatic, doing well with incentive spirometry. Chest x-ray and labs were all reviewed. Hemoglobin is 7.4 today, otherwise other labs are unremarkable. On 02/01/2018, patient continues to do well, she is postoperative day #5. Patient is sitting in a chair, in no form of distress. Likely will transfer the patient out of the ICU to a monitor bed on selective today. Relatively asymptomatic. All labs were reviewed hemoglobin is 7.9 basic metabolic profile is normal. Chest x-ray was also reviewed, and it showed small pleural effusion and atelectasis at the bases. Mild central venous congestion is also noted. Reevaluated today on 02/02/2018, patient continues to do well, she is sitting up in a recliner without any distress. Denies any cough or wheezing or shortness of breath. Patient is presently an overflow in the ICU waiting for a bed on selective. All labs were reviewed including CBC showing a hemoglobin of 8.4 basic metabolic profile was also reviewed. Chest x-ray showed atelectasis and pleural effusions. Objective - Vital Signs Vital signs: Vital Signs Temp 98.3 F 02/02/18 08:00 Pulse 84 02/02/18 09:00 Resp 15 02/02/18 09:00 BP 136/57 02/02/18 09:00 Pulse Ox 93 L 02/02/18 09:00 Intake & Output 02/01/18 02/02/18 02/02/18 18:59 06:59 18:59 Intake Total 578 400 Output Total 0 600 0 Balance 578 -600 400 Weight 135.5 kg Intake: IV 78 LR 60 NS pressure bag 18 Oral 500 400 Output: Urine 0 600 0 Other: Voiding Method Bedside Commode Bedside Commode Bedside Commode # Voids 1 1 ABP, PAP, CO, CI - Last Documented Arterial Blood Pressure 98/32 Pulmonary Artery Pressure 29/7 Cardiac Output 8.5 Cardiac Index 3.7 - Exam Physical Exam: Revealed a 67-year-old female in no distress. Head: Atraumatic, normocephalic. HEENT:[Neck is supple.] [No neck masses.] [No thyromegaly.] [No JVD.] Chest: [Diminished breath sounds at the bases with minimal crackles. No chest wall tenderness.] Cardiac Exam: [Normal S1 and S2, no S3 gallop, no murmur.] Abdomen: [Soft, nontender, no megaly, no rebound, no guarding, normal bowel sounds.] Extremities: [No clubbing, no edema, no cyanosis.] Neurological Exam: [No focal neurologic deficit.] Psychiatric: Normal mood affect and mental status examination. Skeletal: No focal deformity, and normal range of motion. - Labs CBC & Chem 7: 02/02/18 04:56 02/02/18 04:56 Labs: Abnormal Lab Results - Last 24 Hours (Table) 02/01/18 02/01/18 02/01/18 Range/Units 12:15 17:15 20:38 RBC (3.80-5.40) m/uL Hgb (11.4-16.0) gm/dL Hct (34.0-46.0) % RDW (11.5-15.5) % POC Glucose (mg/dL) 185 H 200 H 202 H (75-99) mg/dL Total Protein (6.3-8.2) g/dL Albumin (3.5-5.0) g/dL 02/02/18 02/02/18 02/02/18 Range/Units 04:56 04:56 07:54 RBC 2.75 L (3.80-5.40) m/uL Hgb 8.4 L (11.4-16.0) gm/dL Hct 26.1 L (34.0-46.0) % RDW 15.9 H (11.5-15.5) % POC Glucose (mg/dL) 142 H (75-99) mg/dL Total Protein 5.6 L (6.3-8.2) g/dL Albumin 2.8 L (3.5-5.0) g/dL Assessment and Plan Assessment: 1 multivessel coronary artery disease status post acute non-ST segment elevation myocardial infarction, the patient has undergone three-vessel bypass surgery, patient is postop day #6 2 post thoracotomy mechanical ventilation, and expected outcome following bypass surgery. 3 COPD, inactive, and stable. 4 diabetes mellitus, currently on insulin drip for blood sugar control 5 diabetic retinopathy and glaucoma 6 hypertension 7 hyperlipidemia 8 preserved LV function with a normal ejection fraction of 60% 9 left internal carotid artery stenosis estimated to be around 50-79% 10 fibromyalgia 11 GERD without esophagitis. 12 degenerative arthritis 13 anemia, and expected outcome of bypass surgery. Patient is presently receiving 1 unit of packed RBCs for a low hemoglobin of 6.0. Recommendation: Continue present supportive care measures, continue incentive spirometry, ambulation, continue diuretics, transfer to selective/monitor bed when bed is available. We'll continue to follow. Time with Patient: Less than 30
[2018-02-02 11:56] LABS: Glucose,Whole Blood 248 mg/dL (75-99)
[2018-02-02 11:56] LABS: Glucose,Whole Blood 216 mg/dL (75-99)
--- NOTE | 2018-02-02 11:59 | P.PN ---
Subjective Progress Note Date: 02/02/18 Principal diagnosis: Status post open heart This is a pleasant 67-year-old female patient who presented to the hospital with a chest discomfort and ruled in for acute non-ST elevation myocardial infarction. She underwent a heart catheterization by Dr. Brady and was found to have severe left main disease. She underwent CABG 3 with CUMMINGS to LAD, SVG to PDA, and SVG to OM. The hemoglobin continues to be stable after the 2 units of packed RBC. The patient is in process to be transferred into selective floor. She continues to be on dual antiplatelet therapy along with a statin. Objective - Vital Signs Vital signs: Vital Signs Temp 98.3 F 02/02/18 08:00 Pulse 84 02/02/18 09:00 Resp 15 02/02/18 09:00 BP 136/57 02/02/18 09:00 Pulse Ox 93 L 02/02/18 09:00 Intake & Output 02/01/18 02/02/18 02/02/18 18:59 06:59 18:59 Intake Total 578 400 Output Total 0 600 0 Balance 578 -600 400 Weight 135.5 kg Intake: IV 78 LR 60 NS pressure bag 18 Oral 500 400 Output: Urine 0 600 0 Other: Voiding Method Bedside Commode Bedside Commode Bedside Commode # Voids 1 1 ABP, PAP, CO, CI - Last Documented Arterial Blood Pressure 98/32 Pulmonary Artery Pressure 29/7 Cardiac Output 8.5 Cardiac Index 3.7 - Constitutional General appearance: Present: no acute distress - Labs CBC & Chem 7: 02/02/18 04:56 02/02/18 04:56 Labs: Abnormal Lab Results - Last 24 Hours (Table) 02/01/18 02/01/18 02/01/18 Range/Units 12:15 17:15 20:38 RBC (3.80-5.40) m/uL Hgb (11.4-16.0) gm/dL Hct (34.0-46.0) % RDW (11.5-15.5) % POC Glucose (mg/dL) 185 H 200 H 202 H (75-99) mg/dL Total Protein (6.3-8.2) g/dL Albumin (3.5-5.0) g/dL 02/02/18 02/02/18 02/02/18 Range/Units 04:56 04:56 07:54 RBC 2.75 L (3.80-5.40) m/uL Hgb 8.4 L (11.4-16.0) gm/dL Hct 26.1 L (34.0-46.0) % RDW 15.9 H (11.5-15.5) % POC Glucose (mg/dL) 142 H (75-99) mg/dL Total Protein 5.6 L (6.3-8.2) g/dL Albumin 2.8 L (3.5-5.0) g/dL 18 02/02/18 Range/Units 11:50 11:54 RBC (3.80-5.40) m/uL Hgb (11.4-16.0) gm/dL Hct (34.0-46.0) % RDW (11.5-15.5) % POC Glucose (mg/dL) 216 H 248 H (75-99) mg/dL Total Protein (6.3-8.2) g/dL Albumin (3.5-5.0) g/dL Assessment and Plan Assessment: Assessment #1 severe underlying CAD and status post CABG as described above Plan #1 continue the current medical treatment which included dual antiplatelet as well as statin and beta kris #2 monitor the kidney function and electrolytes as well as a hemoglobin #3 continue following up with the patient
[2018-02-02] MEDS ORDERED: FUROSEMIDE 10 MG/ML 2 ML VIAL IV STA (12:16)
[2018-02-02] MEDS: MULTIVITAMINS, THERA 1 EACH TAB PO SCH ×2 (12:59→19:10)
[2018-02-02 17:23] LABS: Glucose,Whole Blood 147 mg/dL (75-99)
[2018-02-02] MEDS ORDERED: INSULIN ASPART 100 UNIT/ML 1 ML 10 ML VIAL SQ SCH (17:30)
[2018-02-02 19:04] LABS: Glucose,Whole Blood 175 mg/dL (75-99)
[2018-02-02] MEDS: MUPIROCIN 2% OINT 22 GM TUBE NASAL SCH (19:10)
[2018-02-02] MEDS: FUROSEMIDE 20 MG TAB PO SCH (19:10)
[2018-02-02] MEDS: TIMOLOL 0.5% OPHTH DROPS 5 ML BTL BOTH EYES SCH (19:10)
[2018-02-02] MEDS: ISOSORBIDE MONONITRATE ER 60 MG TAB.ER.24H PO SCH (19:10)
[2018-02-02] MEDS ORDERED: INSULIN NPH 300 UNIT/3 ML VIAL SQ SCH (21:00)
[2018-02-02 21:07] LABS: Glucose,Whole Blood 159 mg/dL (75-99)
[2018-02-02] MEDS: MONTELUKAST 10 MG TAB PO SCH (21:23)
[2018-02-02] MEDS: SENNOSIDES-DOCUSATE SODIUM 1 EACH TAB PO SCH (21:23)
[2018-02-03] MEDS: HEPARIN SODIUM,PORCINE 5,000 UNIT/ML 1 ML VIAL SQ SCH ×2 (00:59→08:44)
[2018-02-03 02:50] LABS: Glucose,Whole Blood 86 mg/dL (75-99)
[2018-02-03 06:17] LABS: Glucose,Whole Blood 124 mg/dL (75-99)
[2018-02-03] MEDS: INSULIN ASPART 100 UNIT/ML 1 ML 10 ML VIAL SQ SCH ×3 (06:28→12:32)
[2018-02-03 06:32] LABS: HCT 26.2 % (34.0-46.0); HGB 8.4 gm/dL (11.4-16.0); Hypochromasia Slight; MCH 30.5 pg (25.0-35.0); MCHC 32.2 g/dL (31.0-37.0); MCV 94.8 fL (80.0-100.0); Mean Platelet Volume 7.1; Platelet Count 356 k/uL (150-450); RBC 2.77 m/uL (3.80-5.40); RDW 15.6 % (11.5-15.5)
[2018-02-03 06:43] LABS: Albumin 2.8 g/dL (3.5-5.0); Calcium 8.5 mg/dL (8.4-10.2); Potassium 4.2 mmol/L (3.5-5.1); Total Bilirubin 0.9 mg/dL (0.2-1.3); Total Protein 5.7 g/dL (6.3-8.2)
[2018-02-03] MEDS: ASCORBIC ACID 500 MG TAB PO SCH (06:53)
[2018-02-03] MEDS: PANTOPRAZOLE 40 MG TABLET PO SCH (06:53)
[2018-02-03] MEDS: FERROUS SULFATE 325 MG TAB PO SCH (06:53)
[2018-02-03] MEDS ORDERED: INSULIN ASPART 100 UNIT/ML 1 ML 10 ML VIAL SQ SCH (07:30)
[2018-02-03] MEDS: HYDROcodone/APAP 5-325MG 1 EACH TAB PO PRN (07:37)
[2018-02-03 07:45] VITALS: RESP 16
--- NOTE | 2018-02-03 08:29 | P.PN ---
Progress Note - Text The patient is a 67-year-old who is post open heart coronary artery bypass surgery 6 days previous after initially presenting with non-Q-wave myocardial infarction associated with left main and triple-vessel disease. She is up in the chair at the side of the bed on selective care unit eating breakfast. Appetite has not been good. No nausea or vomiting. Overall postoperative pain is controlled. She does not feel short of breath at rest. Last vital signs temperature 97.8 with a pulse of 92 and respirations 16. Blood pressure 148/68 and she is 95 % saturated. Lungs are generally clear. Heart tones were regular. She does have lower extremity appliances on. No focal neurological deficits. Laboratory Hemoglobin is 8.4. White count is 9.0 with a platelet count of 356. Electrolytes are normal. GFR 77 Blood sugar was 124. Impressions and plans Patient continues to slowly improved postoperatively. She was engaged with physical and occupational therapy yesterday. Blood sugars are doing well. Possible discharge to inpatient rehab.
[2018-02-03] MEDS: INSULIN DETEMIR 100 UNIT/ML 10 ML VIAL SQ SCH (08:44)
[2018-02-03] MEDS: CITALOPRAM HYDROBROMIDE 20 MG TAB PO SCH (08:45)
[2018-02-03] MEDS: ATORVASTATIN 40 MG TAB PO SCH (08:45)
[2018-02-03] MEDS: CLOPIDOGREL 75 MG TAB PO SCH (08:45)
[2018-02-03] MEDS: ASPIRIN 81 MG PO SCH (08:45)
[2018-02-03] MEDS: METOPROLOL TARTRATE 25 MG TAB PO SCH (08:45)
[2018-02-03] MEDS ORDERED: FUROSEMIDE 10 MG/ML 2 ML VIAL IV STA (10:31)
[2018-02-03 11:11] VITALS: BP 108/61; PULSE 79; TEMP 97.7
[2018-02-03 12:09] LABS: Glucose,Whole Blood 222 mg/dL (75-99)
--- NOTE | 2018-02-03 12:12 | P.PN ---
Subjective Progress Note Date: 02/03/18 This is a 67-year-old female patient with history of angina, prior cardiac catheterizations without any angioplasties, chronic diffuse disease, hyperlipidemia, hypertension, diabetes, asthma, who presented to the hospital with symptoms of chest discomfort with associated discomfort in her jaw and upper arms. She was also noted to have abnormality in her troponins, suggesting non-Q-wave DC, 0.2, 5.7, 9.5, 15.4.. For this reason she was advised by Dr. Brady to undergo cardiac catheterization by Dr. Juarez. The risks and the benefits were explained to the patient in detail, this will be performed tomorrow morning at 7:30. Blood pressure 120/60 heart rate in the 70s , 99% on room air. 01/25/2018 Patient underwent a cardiac catheterization yesterday which revealed critical stenosis involving the distal left main with severe triple-vessel coronary artery disease. Normal left ventricular size and systolic function. Patient had been on Plavix, which is currently on hold, she has been seen by cardiothoracic surgery and scheduled for coronary artery bypass graft surgery, after Plavix being held for 5-7 days. At the time of my examination, patient is currently chest pain-free, she states that she did ambulate with physical therapy this morning and developed some discomfort in her upper chest and neck area. This seemed to resolve with rest after getting back to bed. Patient was instructed not to be up ambulating in the hallway prior to her surgery. She is currently on IV heparin. Blood pressure 120/60 with a heart rate in the 60s to 70s, 96% on room air. White blood cell count 6.6, hemoglobin 10.3, platelet count 237. Sodium 143, potassium 3.9, BUN 15, creatinine 0.9. 01/26/2018 Was seen and examined this morning, denies any chest discomfort, breathing overall has been stable. She is scheduled to undergo coronary artery bypass grafting surgery tomorrow. Blood pressure 140/64, heart rate in the 60s to 70s , afebrile. White blood cell count 6.6, hemoglobin 10.2, platelet count 242. Sodium 143, potassium 3.9, BUN 14, creatinine 0.8.\ 02/03/2018 Patient seen and examined this morning on the telemetry unit, feeling well, denies any shortness of breath, hemodynamically stable. Hemoglobin 8.4. Remaining in normal sinus rhythm. Objective - Vital Signs Vital signs: Vital Signs Temp 97.7 F 02/03/18 11:06 Pulse 79 02/03/18 11:42 Resp 16 02/03/18 11:42 BP 108/61 02/03/18 11:06 Pulse Ox 97 02/03/18 11:06 Intake & Output 02/02/18 02/03/18 02/03/18 18:59 06:59 18:59 Intake Total 400 Output Total 300 500 250 Balance 100 -500 -250 Weight 130.4 kg Intake: Oral 400 Output: Urine 300 500 250 Other: Voiding Method Bedside Commode Toilet # Voids 1 3 # Bowel Movements 1 ABP, PAP, CO, CI - Last Documented Arterial Blood Pressure 98/32 Pulmonary Artery Pressure 29/7 Cardiac Output 8.5 Cardiac Index 3.7 - Exam PHYSICAL EXAMINATION: HEENT: Head is atraumatic, normocephalic. Pupils equal, round. Neck is supple. There is no elevated jugular venous pressure. HEART EXAMINATION: Heart S1, S2 normal. No murmur or gallop heard. CHEST EXAMINATION:[ Lungs reveal diminished air entry to bilateral bases. ABDOMEN: Soft, nontender. Bowel sounds are heard. No organomegaly noted. Right groin soft, no evidence of any hematoma. EXTREMITIES: 2+ peripheral pulses with no evidence of peripheral edema and no calf tenderness noted. NEUROLOGIC patient is awake, alert and oriented -3. . - Labs CBC & Chem 7: 02/03/18 05:55 02/03/18 05:55 Labs: Abnormal Lab Results - Last 24 Hours (Table) 02/02/18 02/02/18 02/02/18 Range/Units 17:20 19:02 21:06 RBC (3.80-5.40) m/uL Hgb (11.4-16.0) gm/dL Hct (34.0-46.0) % RDW (11.5-15.5) % Glucose (74-99) mg/dL POC Glucose (mg/dL) 147 H 175 H 159 H (75-99) mg/dL Total Protein (6.3-8.2) g/dL Albumin (3.5-5.0) g/dL 04/06/18 04/06/18 04/06/18 Range/Units 05:55 05:55 06:16 RBC 2.77 L (3.80-5.40) m/uL Hgb 8.4 L (11.4-16.0) gm/dL Hct 26.2 L (34.0-46.0) % RDW 15.6 H (11.5-15.5) % Glucose 112 H (74-99) mg/dL POC Glucose (mg/dL) 124 H (75-99) mg/dL Total Protein 5.7 L (6.3-8.2) g/dL Albumin 2.8 L (3.5-5.0) g/dL Assessment and Plan Plan: Assessment and plan #1 non-Q-wave myocardial infarction, status post cardiac catheterization which revealed critical stenosis involving the distal left main with severe triple- vessel coronary artery disease. Normal left ventricular size and systolic function. #2 diabetes #3 hypertension #4 hyperlipidemia #5 asthma Plan From cardiology's perspective, patient has been encouraged regarding the use of her incentive spirometry, her current medications have been reviewed. Doing well overall. DNP note has been reviewed, I agree with a documented findings and plan of care. Patient was seen and examined.
[2018-02-03] MEDS: MULTIVITAMINS, THERA 1 EACH TAB PO SCH (12:32)
--- NOTE | 2018-02-03 13:20 | P.PN ---
Subjective Progress Note Date: 02/03/18 Principal diagnosis: Acute non-ST segment elevation myocardial infarction, status post coronary artery bypass grafting. 67-year-old female patient with known history of coronary artery disease and previous IN back in 2013 in addition to left internal carotid artery stenosis approximately 50-79% based on ultrasound in addition to history of smoking which she quit more than 30 years ago. The patient has other comorbidities including hypertension and hyperlipidemia and obesity. The patient came into the hospital because of chest tightness and pain radiating to her jaw. She was also feeling nauseated and she had a bout of emesis. She ruled in for acute IN. The troponin was elevated and the highest was at 15.4. Based on that a cardiac catheterization was done and it showed a 60% stenosis of the left main, 95% stenosis of the right coronary artery, totally occluded circumflex coronary artery, 90% stenosis of the proximal left anterior descending, 60% stenosis in the mid anterior descending. The LV angiogram showed a normal ejection fraction of 60%. The patient was kept on IV heparin. She is currently being evaluated for cardiac bypass surgery. This is being considered yet is currently on hold knowing that the patient has taken Plavix. Follow pulmonary standpoint, the patient may have an underlying COPD although this has not been officially diagnosed. Her FEV1 was measured to be at around 35%. This was a suboptimal effort. She claims that she is able to climb a flight of stairs with some limited difficulties. No cough. No sputum production. No hemoptysis. Pleurisy. No swelling lower extremities. No recurrent pneumonias. No reported history of any obstructive sleep apnea. No asthma during childhood. No previous history of DVT and pulmonary embolism. Chest x- ray shows no evidence of any lung masses or lesions. Pulse ox on room air is 97 %. On 4 1018 the patient is looking well. Overnight she had some issues with hypotension and the [place] catheter was kept in place. She received a total of 500 mL of albumin. She was briefly placed on pressors and she is currently off pressors. Hemoglobin is down to 6.5. Cardiothoracic surgery is aware and there are no plans to transfuse this patient. The [place] tubes are showing low output and these to his will be removed today. The patient is postop day # 2. Pleural catheters and she was will be kept in place. [place] catheter will be removed. She is not having any significant chest pain. No cough or sputum production. Pulling approximately 1000 on incentive spirometer. Still on insulin drip for blood sugar control. Sternum stable clean and intact. No other significant events otherwise for now and will continue to follow. On 01/30/2018, patient continues to do well, she is status post CABG, postoperative day #3. Patient is on nasal cannula, denies any specific complaints, in no distress. Hemoglobin is low today, patient is being transfused. Her chest x-ray showed a left lower lobe atelectasis and small left pleural effusion noted. Basic metabolic profile is normal, renal profile is normal. Chest x-ray as noted above. Patient was reevaluated today on 01/31/2018, continues to do well, postoperative day #4. Patient is in no distress, relatively asymptomatic, doing well with incentive spirometry. Chest x-ray and labs were all reviewed. Hemoglobin is 7.4 today, otherwise other labs are unremarkable. On 02/01/2018, patient continues to do well, she is postoperative day #5. Patient is sitting in a chair, in no form of distress. Likely will transfer the patient out of the ICU to a monitor bed on selective today. Relatively asymptomatic. All labs were reviewed hemoglobin is 7.9 basic metabolic profile is normal. Chest x-ray was also reviewed, and it showed small pleural effusion and atelectasis at the bases. Mild central venous congestion is also noted. Reevaluated today on 02/02/2018, patient continues to do well, she is sitting up in a recliner without any distress. Denies any cough or wheezing or shortness of breath. Patient is presently an overflow in the ICU waiting for a bed on selective. All labs were reviewed including CBC showing a hemoglobin of 8.4 basic metabolic profile was also reviewed. Chest x-ray showed atelectasis and pleural effusions. The patient is seen again today 02/03/2018 in follow-up on the selective care unit. She is currently sitting up in a chair at the bedside. She is awake and alert in no acute distress. She denies any worsening shortness of breath, cough or congestion. She is working well with her incentive spirometer. Maintaining good O2 saturations in the mid 90s on room air. She's been afebrile. Hemodynamically stable. White count 9.0. Hemoglobin 8.4. Creatinine 0.80. Objective - Vital Signs Vital signs: Vital Signs Temp 97.7 F 02/03/18 11:06 Pulse 79 02/03/18 11:42 Resp 16 02/03/18 11:42 BP 108/61 02/03/18 11:06 Pulse Ox 97 02/03/18 11:06 Intake & Output 02/02/18 02/03/18 02/03/18 18:59 06:59 18:59 Intake Total 400 240 Output Total 300 500 500 Balance 100 -500 -260 Weight 130.4 kg Intake: Oral 400 240 Output: Urine 300 500 500 Other: Voiding Method Bedside Commode Toilet # Voids 1 3 # Bowel Movements 1 ABP, PAP, CO, CI - Last Documented Arterial Blood Pressure 98/32 Pulmonary Artery Pressure 29/7 Cardiac Output 8.5 Cardiac Index 3.7 - Exam GENERAL EXAM: Obese. Alert, active, comfortable in no apparent distress. HEAD: Normocephalic. EYES: Normal reaction of pupils, equal size. NOSE: Clear with pink turbinates. THROAT: No erythema or exudates. NECK: No masses, no JVD. CHEST: Sternal dressing is dry and intact. Sternum stable. LUNGS: Equal air entry with faint crackles in bilateral posterior bases.. CVS: S1 and S2 normal with no audible murmur, regular rhythm. ABDOMEN: No hepatosplenomegaly, normal bowel sounds, no guarding or rigidity. SPINE: No scoliosis or deformity SKIN: No rashes CENTRAL NERVOUS SYSTEM: No focal deficits, tone is normal in all 4 extremities. EXTREMITIES: There is no peripheral edema. No clubbing, no cyanosis. Peripheral pulses are intact. - Labs CBC & Chem 7: 02/03/18 05:55 02/03/18 05:55 Labs: Abnormal Lab Results - Last 24 Hours (Table) 02/02/18 02/02/18 02/02/18 Range/Units 17:20 19:02 21:06 RBC (3.80-5.40) m/uL Hgb (11.4-16.0) gm/dL Hct (34.0-46.0) % RDW (11.5-15.5) % Glucose (74-99) mg/dL POC Glucose (mg/dL) 147 H 175 H 159 H (75-99) mg/dL Total Protein (6.3-8.2) g/dL Albumin (3.5-5.0) g/dL 02/03/18 02/03/18 02/03/18 Range/Units 05:55 05:55 06:16 RBC 2.77 L (3.80-5.40) m/uL Hgb 8.4 L (11.4-16.0) gm/dL Hct 26.2 L (34.0-46.0) % RDW 15.6 H (11.5-15.5) % Glucose 112 H (74-99) mg/dL POC Glucose (mg/dL) 124 H (75-99) mg/dL Total Protein 5.7 L (6.3-8.2) g/dL Albumin 2.8 L (3.5-5.0) g/dL 02/03/18 Range/Units 11:50 RBC (3.80-5.40) m/uL Hgb (11.4-16.0) gm/dL Hct (34.0-46.0) % RDW (11.5-15.5) % Glucose (74-99) mg/dL POC Glucose (mg/dL) 222 H (75-99) mg/dL Total Protein (6.3-8.2) g/dL Albumin (3.5-5.0) g/dL Assessment and Plan Assessment: Impression: 1 multivessel coronary artery disease status post acute non-ST segment elevation myocardial infarction, the patient has undergone three-vessel bypass surgery, patient is postop day #7 2 post thoracotomy mechanical ventilation, an expected outcome following bypass surgery. 3 COPD, inactive, and stable. 4 diabetes mellitus, currently on insulin drip for blood sugar control 5 diabetic retinopathy and glaucoma 6 hypertension 7 hyperlipidemia 8 preserved LV function with a normal ejection fraction of 60% 9 left internal carotid artery stenosis estimated to be around 50-79% 10 fibromyalgia 11 GERD without esophagitis. 12 degenerative arthritis 13 anemia, and expected outcome of bypass surgery. Hemoglobin 8.4. Recommendation: The patient is seen and evaluated by Dr. Erwin. She is quite stable from the pulmonary standpoint. We will increase her activity as tolerated. Encouraged regarding the increased use of the incentive spirometer and cough and deep breathing exercises. The plan is for either transferred to inpatient rehabilitation versus home with home care. We'll continue to follow. I, the cosigning physician, performed a history & physical examination of the patient. Lungs sounds faint crackles in the posterior bases.. Maintaining good O2 saturations in the 90s on room air. I discussed the assessment and plan of care with my nurse practitioner, Anisha Salas. I attest to the above note as dictated by her.
--- NOTE | 2018-02-03 15:34 | P.DS ---
Providers Date of admission: 01/22/18 11:42 Expected date of discharge: 02/03/18 Attending physician: Robert Worley Consults: 01/22/18 11:42 Consult Physician Urgent Consulting Provider: [facility] Consult Reason/Comments: Non-STEMI Do you want consulting provider notified?: Yes 01/24/18 08:49 Consult Physician Routine Consulting Provider: Rboert Worley Consult Reason/Comments: cabg Do you want consulting provider notified?: Already Contacted 01/25/18 06:49 Consult Physician Routine Consulting Provider: Lincoln Gonzalez Consult Reason/Comments: Pulmonary management Do you want consulting provider notified?: Already Contacted 01/26/18 10:15 Consult to Anesthesia Routine Consulting Provider: Anest[facility],Services Consult Reason/Comments: Cardiac Surgery Pre-Op 01/27/18 15:18 Consult Physician Routine Consulting Provider: Tim Osborn Consult Reason/Comments: medical management Do you want consulting provider notified?: Already Contacted 01/31/18 09:31 Consult Physician Routine Consulting Provider: Oneal Morris Consult Reason/Comments: inpatient rehab Do you want consulting provider notified?: Yes Primary care physician: Tim Osborn - Discharge Diagnosis(es) (1) Hypertension Current Visit: Yes Status: Chronic (2) Hyperlipidemia Current Visit: Yes Status: Chronic (3) History of coronary artery disease Current Visit: Yes Status: Chronic (4) Morbid obesity with BMI of 40.0-44.9, adult Current Visit: Yes Status: Chronic (5) Elevated troponin Current Visit: Yes Status: Acute (6) Non-STEMI (non-ST elevated myocardial infarction) Current Visit: Yes Status: Acute (7) Diabetes mellitus Current Visit: Yes Status: Chronic Hospital Course: FINAL DIAGNOSIS: 1. Severe multivessel coronary artery disease including left main stenosis of 60% 2. Non-ST elevated myocardial infarction this admission 3. Previous medical history of coronary artery disease with previous myocardial infarction in 2013 4. Hypertension 5. Hyperlipidemia 6. Fibromyalgia 7. Depression 8. Left carotid stenosis greater than 70% to her left internal carotid artery 9. Previous tobacco dependence with a preoperative FEV1 of 104% predicted 10. Morbid obesity with a BMI of 45.0 kg/m, history of lap band surgery 11. History of renal failure with 2 treatments of hemodialysis 12. Gastroesophageal reflux disease 13. Diabetes mellitus type 2 with a preoperative hemoglobin A1c of 7.1% 14. Postoperative acute blood loss anemia, an expected outcome of surgery given cardiopulmonary bypass PRINCIPAL PROCEDURE: 1. Urgent selective right and left coronary angiography 2. Urgent coronary artery bypass grafting 3 vessels with placement of her left internal mammary artery to her left anterior descending coronary artery, a reverse greater saphenous vein graft to her posterior descending coronary artery and a reverse greater saphenous vein graft to her distal obtuse marginal coronary artery. 3. Endoscopic vein harvest, left greater saphenous vein. 4. Intraoperative epi-aortic ultrasound. 5. Intraoperative transesophageal echocardiogram. 6. Measurement of graft flow using the Medistim system. 7. Lysis of adhesions. HISTORY OF PRESENT ILLNESS: This is 67-year-old female patient who is followed by Dr. Tim Osborn on an outpatient basis. She has a past medical history significant for coronary artery disease with previous myocardial infarction in 2013, hypertension, hyperlipidemia, fibromyalgia, depression, history of 50-79% stenosis of her left internal carotid artery, history of nicotine dependence which she quit over 30 years ago, obesity with history of lap band surgery, history of renal failure with 2 treatments of hemodialysis, GERD and diabetes mellitus type 2. On 01/22/2018 the patient presented to the emergency department here at [facility]. She presented with complaints of chest tightness, pain radiating to her jaw, nausea with one emesis. Subsequently she was seen by Dr. Juarez from cardiology and the patient underwent a 12-lead EKG which did not show any acute changes, but did have elevated troponins of 0.281 and as high as 15.4. The patient was admitted to the hospital for further workup and evaluation. HOSPITAL COURSE: The patient was admitted to the hospital and after obtaining consent she underwent a cardiac catheterization performed by Dr. Juarez which demonstrated a 60% stenosis to her left main coronary artery, a 95% stenosis to her right coronary artery, a totally occluded circumflex coronary artery, a 90% stenosis to her proximal left anterior descending coronary artery and a 60% stenosis to her mid left anterior descending coronary artery. Also during heart catheterization a left ventriculogram was completed which demonstrated her to have an ejection fraction of 60%. Patient also underwent a 2-D echocardiogram which showed her to have an overall left ventricular systolic function to be normal with an ejection fraction between 55 and 60%. It also demonstrated mild mitral valve regurgitation and mild tricuspid valve regurgitation. Due to the patient's presenting symptoms, cardiac history, and results of the heart catheterization a consult was placed to Dr. Worley from cardiothoracic surgery. The above-mentioned studies were reviewed with the patient by Dr. Worley and a myocardial revascularization surgery was recommended. After obtaining consent the patient was taken to the operating room where she underwent an urgent coronary artery bypass grafting surgery 3 vessels with placement of her left internal mammary artery to her left anterior descending coronary artery, a reverse greater saphenous vein graft to the posterior descending coronary artery, and a reverse greater saphenous vein graft to the distal obtuse marginal coronary artery. Patient also underwent endoscopic vein harvesting of the left greater saphenous vein, intraoperative transesophageal echocardiogram, epi-aortic scanning and graft flow measurement using the Medistim. The patient was then transferred to the cardiovascular intensive care unit where she was recovered, monitored hemodynamically, and where she progressed cardiac rehabilitation phase 1. The patient was extubated, all lines, tubes and drips were discontinued when appropriate and transfer orders were placed for 6 east selective care for further monitoring and rehabilitation. Her oxygen was titrated down, she continued to participate in physical therapy, cardiac rehabilitation and was ready to be discharged to inpatient rehab at [facility] on postoperative day #7. She has received written and verbal instructions regarding her medications, activity restrictions, signs and symptoms requiring physician notification and all of her follow-up appointments. COMPLICATIONS: There were no postoperative complications. CONSULTATIONS: 1. Dr. Juarez for cardiology management 2. Dr. Osborn for medical management 3. Dr. Gonzalez for pulmonary management 4. Dr. Morris for rehab management DISCHARGE INSTRUCTIONS: 1. No driving for 4 weeks, or until physician gives their ok. 2. The patient should sleep in their own bed, no medical bed needed after her discharge from inpatient rehab. 3. Stairs are not an issue. If the bedroom is upstairs, it is advised that the patient go up at night and down in the morning for the first week. Go slowly, using handrail and take 1 step at a time. 4. NELIA hose are to be worn for 30 days or until physician discontinues. 5. Heart hugger/heart hugger surgery vest is to be worn 100% of the time until physician discontinues.(except when showering) 6. No lifting, pushing, or pulling more than 10 pounds for 12 weeks. The physician will advise of any restriction changes. 7. The patient is expected to continue the prescribed walking program. 8. Continue pain control per as needed orders. 9. Continue with incentive spirometry and splinting/heart hugger until otherwise directed by the physician. 10. Must shower daily using liquid antibacterial soap and a separate white washcloth for each individual incision. 11. Routine sternal incision care, no ointments, lotions or powders on the incisions. 12. Please notify surgeon/nurse practitioner for temperature greater than 101F or purulent drainage from incisions 13. Prescriptions for first 30 days given per cardiac surgery service. After 30 days, all prescription refills obtained through cardiology/primary care physician. 14. A red arm and has been placed on this patient it should be worn for 30 days post surgery and will be removed by the cardiothoracic surgeons. If an ER visit is necessary, please make sure the number on the red arm band is called. NURSING REHAB SERVICES TO PROVIDE: RN SKILLED HOME CARE SERVICES FOR POST-OP SURGICAL PATIENTS WITH THE FOLLOWING: Coronary Artery Bypass Surgery (CABG), Mitral Valve Replacement/ Repair ( MVR), Aortic Valve Replacement/Repair (AVR) RN TO CONTINUE EDUCATION FROM ``ROAD TO A HEALTH HEART PATIENT EDUCATION MANUAL" (GIVEN TO PATIENT IN THE HOSPITAL) MEDICATION RECONCILIATION WITH EDUCATION NEEDED ON FIRST HOME VISIT EMPHASIZE IMPORTANCE OF WEARING BREAST SUPPORT/HEART HUGGER ENCOURAGE USE OF INCENTIVE SPIROMETER 10 X EVERY HOUR WHILE AWAKE ENCOURAGE UTILIZATION OF LOWER EXTREMITY COMPRESSION STOCKINGS/NELIA HOSE and ELEVATE LEGS ABOVE LEVEL OF HEART WHILE AT REST. ENCOURAGE AMBULATION 3-5x/day INCREASING TOLERATES, WHILE AVOID EXTREMES IN TEMPERATURE LABORATORY: CBC, CMP TO BE DRAWN ON THE THIRD DAY HOME, 02/06/2018 (RAN STAT ) PLEASE FAX RESULTS TO [phone]. TELEHEALTH PARAMETERS: WEIGHT: NOTIFY MD OF WEIGHT GAIN OF 2 LBS IN 24 HOURS OR 5 LBS IN ONE WEEK HR: NOTIFY MD OF HR <55 BPM OR HR>100 BPM BP: NOTIFY MD IF BP <90/55 OR BP>140/100 O2 SAT: NOTIFY MD IF PO2<93% ON ROOM AIR SEND TELEHEALTH REPORT TO DRAFTING TEACHER AND CARDIOVASCULAR SURGEON THE FIRST WEEK OF CARE AND THEN BI-WEEKLY. PLEASE ADDITIONALLY COMMUNICATE ANY ABNORMALS AND NEW FINDINGS TO THE SURGEONS OFFICE. Plan - Discharge Summary Discharge Rx Participant: No New Discharge Prescriptions: No Action Insulin Detemir [Levemir] 14 unit SQ DAILY Atorvastatin [Lipitor] 80 mg PO HS Metoprolol Tartrate [Lopressor] 25 mg PO BID Isosorbide Mononitrate [Imdur] 60 mg PO DAILY Clopidogrel [Plavix] 75 mg PO DAILY HYDROcodone/APAP 10-325MG [[place] 10-325] 2 tab PO Q4H PRN PRN Reason: Pain Nitroglycerin Sl Tabs [Nitrostat] 0.4 mg SUBLINGUAL Q5M PRN PRN Reason: Chest Pain Latanoprost Ophth [Xalatan 0.005%] 1 drop RIGHT EYE HS Insulin Glulisine [Apidra] 18 unit SQ AC-BRKFST Ergocalciferol [Vitamin D2 (DRISDOL)] 50,000 unit PO SA Aspirin EC [Ecotrin Low Dose] 81 mg PO HS Multivit-Min/Iron/Folic/Lutein [Centrum Silver Women Tablet] 1 tab PO DAILY Fexofenadine HCl [Citlaly Allergy] 180 mg PO HS PRN PRN Reason: Allergy Symptoms Fluticasone Nasal [place] [Flonase Nasal [place]] 1 spray EA NOSTRIL DAILY PRN PRN Reason: Congestion Hydrocortisone [Hydrocortisone 0.05%] 1 applic TOPICAL BID PRN PRN Reason: Itching Polyethylene Glycol 3350 [Miralax] 17 gm PO DAILY PRN PRN Reason: Constipation Ferrous Sulfate [Iron (65 MG Elemental)] 325 mg PO DAILY Furosemide [Lasix] 20 mg PO BID Citalopram Hydrobromide [CeleXA] 40 mg PO DAILY Insulin NPH Human Isophane [humuLIN N] 21 unit SQ HS Insulin Glulisine [Apidra] See Protocol SQ ACHS Insulin Glulisine [Apidra] 16 unit SQ AC-SUPPER Insulin Glulisine [Apidra] 14 unit SQ AC-LUNCH Timolol 0.5% Ophth Soln [Timoptic 0.5% Ophth Soln] 1 drop BOTH EYES BID Montelukast [Singulair] 10 mg PO HS Ciprofloxacin HCl [Cipro] 250 mg PO Q12HR Omeprazole 40 mg PO AC-BRKFST Discharge Medication List Ergocalciferol [Vitamin D2 (DRISDOL)] 50,000 unit PO SA 09/11/14 [History] Latanoprost Ophth [Xalatan 0.005%] 1 drop RIGHT EYE HS 09/11/14 [History] Timolol 0.5% Ophth Soln [Timoptic 0.5% Ophth Soln] 1 drop BOTH EYES BID [History] Ascorbic Acid [Vitamin C] 500 mg PO BID-W/MEALS tab 02/03/18 [Rx] Aspirin 81 mg PO DAILY chew 02/03/18 [Rx] Atorvastatin [Lipitor] 40 mg PO DAILY tab 02/03/18 [Rx] Bisacodyl [Dulcolax] 10 mg RECTAL DAILY PRN supp 02/03/18 [Rx] Citalopram Hydrobromide [CeleXA] 40 mg PO DAILY tab 02/03/18 [Rx] Clopidogrel [Plavix] 75 mg PO DAILY tab 02/03/18 [Rx] Ferrous Sulfate [Iron (65 MG Elemental)] 325 mg PO BID-W/MEALS tab 02/03/18 [Rx ] Furosemide [Lasix] 40 mg PO DAILY tab 02/03/18 [Rx] HYDROcodone/APAP 5-325MG [[place] 5-325] 1 each PO Q4HR PRN tab 02/03/18 [Rx] HYDROcodone/APAP 5-325MG [[place] 5-325] 2 each PO Q4HR PRN tab 02/03/18 [Rx] Insulin Aspart [NovoLOG (formulary)] 0 unit SQ ACHS vial 02/03/18 [Rx] Insulin Aspart [NovoLOG (formulary)] 14 unit SQ AC-LUNCH vial 02/03/18 [Rx] Insulin Aspart [NovoLOG (formulary)] 16 unit SQ AC-SUPPER vial 02/03/18 [Rx] Insulin Aspart [NovoLOG (formulary)] 18 unit SQ AC-BRKFST #0 vial 02/03/18 [Rx] Insulin Detemir [Levemir] 12 unit SQ AC-BRKFST syr 02/03/18 [Rx] Insulin NPH [humuLIN N] 21 unit SQ HS vial 02/03/18 [Rx] Metoprolol Tartrate [Lopressor] 25 mg PO BID tab 02/03/18 [Rx] Montelukast [Singulair] 10 mg PO HS tab 02/03/18 [Rx] Multivitamins, Thera [Multivitamin (formulary)] 1 each PO DAILY@1200 tab [Rx] Pantoprazole [Protonix] 40 mg PO AC-BRKFST tablet. 02/03/18 [Rx] Sennosides-Docusate Sodium [Senokot-S] 2 each PO HS tab 02/03/18 [Rx] Follow up Appointment(s)/Referral(s): Hilaria Juarez MD [STAFF PHYSICIAN] - 2 Weeks (Office will call with appointment ) Robert Worley MD [STAFF PHYSICIAN] - 02/24/18 10:00 am Tim Osborn MD [Primary Care Provider] - 02/16/18 3:15 pm Lincoln Gonzalez MD [STAFF PHYSICIAN] - 02/24/18 8:30 am
[2018-02-04] MEDS ORDERED: FUROSEMIDE 40 MG TAB PO SCH (09:00)
== END 2018-02-03 16:43 | DRG 233 ==
LOC: EC 10:25 → 6SEL 11:42 → 6ICU 01-27 06:00 → 6SEL 02-02 18:08
PROVIDERS: ADMIT Internal Medicine; ATTEND Surgery
PROC: 4A023N7 Measurement of Cardiac Sampling and Pressure, Left Heart, Percutaneous Approach (ICD-10-PCS; 2018-01-24)
PROC: B54DZZZ Ultrasonography of Bilateral Lower Extremity Veins (ICD-10-PCS; 2018-01-24)
PROC: B2111ZZ Fluoroscopy of Multiple Coronary Arteries using Low Osmolar Contrast (ICD-10-PCS; 2018-01-24)
PROC: B2151ZZ Fluoroscopy of Left Heart using Low Osmolar Contrast (ICD-10-PCS; 2018-01-24)
PROC: 02100Z9 Bypass Coronary Artery, One Artery from Left Internal Mammary, Open Approach (ICD-10-PCS; 2018-01-27)
PROC: 06BQ4ZZ Excision of Left Saphenous Vein, Percutaneous Endoscopic Approach (ICD-10-PCS; 2018-01-27)
PROC: 5A1221Z Performance of Cardiac Output, Continuous (ICD-10-PCS; 2018-01-27)
PROC: 5A1223Z Performance of Cardiac Pacing, Continuous (ICD-10-PCS; 2018-01-27)
PROC: B24BZZ4 Ultrasonography of Heart with Aorta, Transesophageal (ICD-10-PCS; 2018-01-27)
PROC: 30243R1 Transfusion of Nonautologous Platelets into Central Vein, Percutaneous Approach (ICD-10-PCS; 2018-01-27)
PROC: 021109W Bypass Coronary Artery, Two Arteries from Aorta with Autologous Venous Tissue, Open Approach (ICD-10-PCS; principal; 2018-01-27 08:00)
PROC: 30233N1 Transfusion of Nonautologous Red Blood Cells into Peripheral Vein, Percutaneous Approach (ICD-10-PCS; 2018-01-30)
DX: I21.4 Non-ST elevation (NSTEMI) myocardial infarction (principal); I50.21 Acute systolic (congestive) heart failure; D62 Acute posthemorrhagic anemia; J98.11 Atelectasis; E11.42 Type 2 diabetes mellitus with diabetic polyneuropathy; E66.01 Morbid (severe) obesity due to excess calories; I95.9 Hypotension, unspecified; E11.319 Type 2 diabetes mellitus with unspecified diabetic retinopathy without macular edema; I11.0 Hypertensive heart disease with heart failure; I08.1 Rheumatic disorders of both mitral and tricuspid valves; J44.9 Chronic obstructive pulmonary disease, unspecified; E78.00 Pure hypercholesterolemia, unspecified; E78.5 Hyperlipidemia, unspecified; F17.201 Nicotine dependence, unspecified, in remission; F32.9 Major depressive disorder, single episode, unspecified; H40.9 Unspecified glaucoma; I25.2 Old myocardial infarction; I65.22 Occlusion and stenosis of left carotid artery; K21.9 Gastro-esophageal reflux disease without esophagitis; M79.7 Fibromyalgia; R00.0 Tachycardia, unspecified; R00.1 Bradycardia, unspecified; I25.10 Atherosclerotic heart disease of native coronary artery without angina pectoris; M15.9 Polyosteoarthritis, unspecified; G56.00 Carpal tunnel syndrome, unspecified upper limb; Z68.42 Body mass index [BMI] 45.0-49.9, adult; Z79.02 Long term (current) use of antithrombotics/antiplatelets; Z79.4 Long term (current) use of insulin; Z79.82 Long term (current) use of aspirin; Z79.899 Other long term (current) drug therapy; Z98.84 Bariatric surgery status; Z90.49 Acquired absence of other specified parts of digestive tract; Z88.0 Allergy status to penicillin; Z88.6 Allergy status to analgesic agent; Z91.010 Allergy to peanuts; Z98.51 Tubal ligation status; Z98.42 Cataract extraction status, left eye; Z98.41 Cataract extraction status, right eye; Z96.1 Presence of intraocular lens; Z83.3 Family history of diabetes mellitus; Z82.49 Family history of ischemic heart disease and other diseases of the circulatory system
CPT/HCPCS: 36415; 71045; 71046; 80053; 80061; 80074; 81003; 82330; 82550; 82553; 82805; 83036; 83735; 83880; 84100; 84132; 84443; 84484; 85025; 85027; 85520; 85610; 85730; 86850; 86891; 86900; 86901; 86920; 87070; 87086; 93005; 93306; 93458; 93880; 93922; 93970; 94002; 94150; 94640; 94760; 96365; 96366; 96376; 99291

== ENCOUNTER → 2018-04-05 | Outpatient (CLI) | payer OTHER, MEDICARE ==
[2018-04-05 07:11] LABS: Basophils % (A) 0 %; Eosinophils # (A) 0.3 k/uL (0-0.7); Eosinophils % (A) 5 %; HCT 38.4 % (34.0-46.0); Lymphocytes # (A) 1.6 k/uL (1.0-4.8); Lymphocytes % (A) 26 %; MCH 31.8 pg (25.0-35.0); MCHC 34.1 g/dL (31.0-37.0); MCV 93.3 fL (80.0-100.0); Mean Platelet Volume 6.7; Monocytes # (A) 0.4 k/uL (0-1.0); Monocytes % (A) 6 %; Neutrophils # (A) 3.9 k/uL (1.3-7.7); Neutrophils % (A) 62 %; Platelet Count 300 k/uL (150-450); RBC 4.12 m/uL (3.80-5.40); RDW 13.8 % (11.5-15.5); WBC 6.3 k/uL (3.8-10.6)
[2018-04-05 07:12] LABS: HGB 13.1 gm/dL (11.4-16.0)
[2018-04-05 07:20] LABS: Calcium 9.5 mg/dL (8.4-10.2); Magnesium 1.8 mg/dL (1.6-2.3); Phosphorus 3.9 mg/dL (2.5-4.5); Potassium 4.3 mmol/L (3.5-5.1); Uric Acid 5.5 mg/dL (3.7-7.4)
[2018-04-05 07:48] LABS: Appearance,Urine Clear (Clear); Bacteria,Urine Rare /hpf; Bilirubin,Urine Negative (Negative); Blood,Urine Moderate (Negative); Color,Urine Light Yellow; Glucose,Urine (UA) Negative (Negative); Hyaline Casts,Urine 3 /lpf (0-2); Ketones,Urine Negative (Negative); Leukocyte Esterase,Urine Small (Negative); Mucus,Urine Rare /hpf; Nitrite,Urine Negative (Negative); Protein,Urine Negative (Negative); RBC,Urine 6 /hpf (0-5); Specific Gravity,Urine 1.006 (1.001-1.035); Squamous Epithelial Cell,Urine <1 /hpf (0-4); Urobilinogen,Urine <2.0 mg/dL (<2.0); WBC,Urine 7 /hpf (0-5)
[2018-04-05 12:06] LABS: Parathyroid Hormone Intact 97.9 pg/mL (14.0-72.0)
[2018-04-05 13:38] LABS: Iron Saturation 16.27 (12.00-45.00)
== END | disposition home or self-care (01) ==
LOC: LABWHC1 06:37
PROVIDERS: ATTEND Internal Medicine Nephrology
DX: N18.2 Chronic kidney disease, stage 2 (mild) (principal); D64.9 Anemia, unspecified; E55.9 Vitamin D deficiency, unspecified; E21.3 Hyperparathyroidism, unspecified; M10.9 Gout, unspecified; N39.0 Urinary tract infection, site not specified
CPT/HCPCS: 36415; 80048; 81001; 82306; 82728; 83540; 83550; 83735; 83970; 84100; 84550; 85025

== ENCOUNTER → 2018-05-06 | Outpatient (CLI) | payer OTHER, MEDICARE ==
[2018-05-06 08:35] LABS: Appearance,Urine Clear (Clear); Bilirubin,Urine Negative (Negative); Blood,Urine Negative (Negative); Color,Urine Colorless; Glucose,Urine (UA) Negative (Negative); Ketones,Urine Negative (Negative); Leukocyte Esterase,Urine Negative (Negative); Nitrite,Urine Negative (Negative); PH, Urine 5.5 (5.0-8.0); Protein,Urine Negative (Negative); Specific Gravity,Urine 1.005 (1.001-1.035); Urobilinogen,Urine <2.0 mg/dL (<2.0)
[2018-05-06 08:55] LABS: Albumin 3.9 g/dL (3.5-5.0); Calcium 9.1 mg/dL (8.4-10.2); Potassium 4.3 mmol/L (3.5-5.1); Total Bilirubin 0.6 mg/dL (0.2-1.3); Total Protein 7.2 g/dL (6.3-8.2)
[2018-05-06 20:46] LABS: Hemoglobin A1C 7.9 % (4.0-6.0)
== END | disposition home or self-care (01) ==
LOC: LABWHC1 08:09
PROVIDERS: ATTEND Internal Medicine Interventional Cardiology
DX: E11.65 Type 2 diabetes mellitus with hyperglycemia (principal); R31.9 Hematuria, unspecified; E78.2 Mixed hyperlipidemia
CPT/HCPCS: 36415; 80053; 80061; 81003; 83036

== ENCOUNTER 2018-06-09 04:52 | Emergency (ER) | payer OTHER, MEDICARE ==
[2018-06-09 05:07] VITALS: TEMP 98
[2018-06-09 05:15] LABS: Glucose,Whole Blood 114 mg/dL (75-99)
[2018-06-09 05:33] LABS: Basophils % (A) 0 %; Eosinophils # (A) 0.3 k/uL (0-0.7); Eosinophils % (A) 4 %; HGB 12.8 gm/dL (11.4-16.0); Lymphocytes # (A) 1.8 k/uL (1.0-4.8); Lymphocytes % (A) 26 %; MCH 30.2 pg (25.0-35.0); MCHC 32.7 g/dL (31.0-37.0); MCV 92.3 fL (80.0-100.0); Mean Platelet Volume 6.7; Monocytes # (A) 0.3 k/uL (0-1.0); Monocytes % (A) 5 %; Neutrophils # (A) 4.4 k/uL (1.3-7.7); Neutrophils % (A) 63 %; Platelet Count 298 k/uL (150-450); RBC 4.23 m/uL (3.80-5.40); RDW 14.4 % (11.5-15.5)
[2018-06-09 05:44] LABS: Albumin 4.4 g/dL (3.5-5.0); Calcium 9.6 mg/dL (8.4-10.2); Potassium 4.2 mmol/L (3.5-5.1); Total Bilirubin 0.5 mg/dL (0.2-1.3); Total Protein 8.1 g/dL (6.3-8.2)
--- NOTE | 2018-06-09 06:04 | ED ---
General Adult HPI - General Chief complaint: Dizziness Stated complaint: Low BP Source: patient Mode of arrival: wheelchair Limitations: no limitations - History of Present Illness Initial comments: Dictation was produced using [employer] dictation software. please excuse any grammatical, word or spelling errors. Chief Complaint: 67-year-old female presents with dizziness 2 days. History of Present Illness: Patient states she was at home that she felt dizzy. Patient states her dizziness is more of a lightheadedness. She denies the sensation of the room spinning. She states she feels unwell. She has a history of fibromyalgia. She recently had a CABG in December. Since the open heart surgery states she never fully recovered. She has been feeling generally weak. She just recently started cardiac rehab. As any constitutional symptoms. The ROS documented in this emergency department record has been reviewed and confirmed by me. Those systems with pertinent positive or negative responses have been documented in the HPI. All other systems are other negative and/or noncontributory. - Related Data Home Medications Medication Instructions Recorded Confirmed Ergocalciferol [Vitamin D2 50,000 unit PO SA 09/11/14 01/22/18 (DRISDOL)] Latanoprost Ophth [Xalatan 0.005%] 1 drop RIGHT EYE HS 09/11/14 01/22/18 Timolol 0.5% Ophth Soln [Timoptic 1 drop BOTH EYES BID 01/22/18 01/22/18 0.5% Ophth Soln] Previous Rx's Medication Instructions Recorded Ascorbic Acid [Vitamin C] 500 mg PO BID-W/MEALS tab 02/03/18 Aspirin 81 mg PO DAILY chew 02/03/18 Atorvastatin [Lipitor] 40 mg PO DAILY tab 02/03/18 Bisacodyl [Dulcolax] 10 mg RECTAL DAILY PRN supp 02/03/18 Citalopram Hydrobromide [CeleXA] 40 mg PO DAILY tab 02/03/18 Clopidogrel [Plavix] 75 mg PO DAILY tab 02/03/18 Ferrous Sulfate [Iron (65 MG 325 mg PO BID-W/MEALS tab 02/03/18 Elemental)] Furosemide [Lasix] 40 mg PO DAILY tab 02/03/18 HYDROcodone/APAP 5-325MG [[place] 1 each PO Q4HR PRN tab 02/03/18 5-325] HYDROcodone/APAP 5-325MG [[place] 2 each PO Q4HR PRN tab 02/03/18 5-325] Insulin Aspart [NovoLOG 0 unit SQ ACHS vial 02/03/18 (formulary)] Insulin Aspart [NovoLOG 14 unit SQ AC-LUNCH vial 02/03/18 (formulary)] Insulin Aspart [NovoLOG 16 unit SQ AC-SUPPER vial 02/03/18 (formulary)] Insulin Aspart [NovoLOG 18 unit SQ AC-BRKFST #0 vial 02/03/18 (formulary)] Insulin Detemir [Levemir] 12 unit SQ AC-BRKFST syr 02/03/18 Insulin NPH [humuLIN N] 21 unit SQ HS vial 02/03/18 Metoprolol Tartrate [Lopressor] 25 mg PO BID tab 02/03/18 Montelukast [Singulair] 10 mg PO HS tab 02/03/18 Multivitamins, Thera [Multivitamin 1 each PO DAILY@1200 tab 02/03/18 (formulary)] Pantoprazole [Protonix] 40 mg PO AC-BRKFST tablet. 02/03/18 Sennosides-Docusate Sodium 2 each PO HS tab 02/03/18 [Senokot-S] Allergies Allergy/AdvReac Type Severity Reaction Status Date / Time diclofenac Allergy Unknown Verified 01/27/18 06:17 peanut Allergy PER Verified 01/27/18 06:17 ALLERGY TEST Penicillins Allergy ITCHING Verified 01/27/18 06:17 AND RED SKIN Review of Systems ROS Statement: Those systems with pertinent positive or pertinent negative responses have been documented in the HPI. ROS Other: All systems not noted in ROS Statement are negative. 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 Past Anesthesia/Blood Transfusion Reactions: No Reported Reaction Past Psychological History: Depression Smoking Status: Former smoker Past Alcohol Use History: None Reported, Rare Past Drug Use History: None Reported - Past Family History Father Family Medical History: Cancer Mother Family Medical History: Diabetes Mellitus, Myocardial Infarction ([place]) (At age 58.) General Exam - General Exam Comments Initial Comments: PHYSICAL EXAM: General Impression: Alert and oriented x3, not in acute distress HEENT: Normocephalic atraumatic, extra-ocular movements intact, pupils equal and reactive to light bilaterally, mucous membranes moist. Cardiovascular: Heart regular rate and rhythm, S1&S2 audible, no murmurs, rubs or gallops Chest: Lungs clear to auscultation bilaterally, no rhonchi, no wheeze, no rales Abdomen: Bowel sounds present, abdomen soft, non-tender, non-distended, no organomegaly Musculoskeletal: Pulses present and equal in all extremities, no peripheral edema Motor: Power 5/5 bilaterally, no focal deficits noted Neurological: CN II-XII grossly intact, no focal motor or sensory deficits noted Skin: Intact with no visualized rashes Psych: Normal affect and mood Limitations: no limitations Course Vital Signs 06/09/18 06/09/18 04:59 06:10 Temperature 98 F Pulse Rate 77 Respiratory 20 Rate Blood Pressure 145/74 138/65 O2 Sat by Pulse 100 Oximetry Medical Decision Making - Medical Decision Making ED course: 67-year-old female with multiple comorbidities presents with dizziness and generalized weakness. Vital signs upon arrival are within acceptable limits.Laboratory evaluation obtained. CBC unremarkable. Chem panel shows mild elevation in BUN/creatinine ratio. Mild hyperglycemia. Rest of chem panel is unremarkable. Cardiac enzymes negative. Urinalysis is negative. Two-view chest x-ray x-ray is unremarkable. Thus with patient that she is not exhibiting any signs of emergent life-threatening conditions. Patient is told to follow-up with her primary care physician. Patient was ambulatory and tolerating by mouth at bedside. She is given strict return cautioned that if she has worsening symptoms, to the emergency department. Patient is understandable and agreeable to disposition EKG Interpretation: A 12 lead EKG was obtained. It was interpreted by myself and attending physician. There is a P wave before every QRS complex. Rate is 74. Rhythm is sinus rhythm with first-degree AV block, NH interval 214, care 72, QTc 444. QT is not prolonged. No ST segment depression or elevation.Overall, this EKG is unremarkable - Lab Data Result diagrams: 06/09/18 05:15 06/09/18 05:15 Lab Results 06/09/18 06/09/18 06/09/18 Range/Units 05:11 05:15 05:15 WBC 7.0 (3.8-10.6) k/uL RBC 4.23 (3.80-5.40) m/uL Hgb 12.8 (11.4-16.0) gm/dL Hct 39.0 (34.0-46.0) % MCV 92.3 (80.0-100.0) fL MCH 30.2 (25.0-35.0) pg MCHC 32.7 (31.0-37.0) g/dL RDW 14.4 (11.5-15.5) % Plt Count 298 (150-450) k/uL Neutrophils % 63 % Lymphocytes % 26 % Monocytes % 5 % Eosinophils % 4 % Basophils % 0 % Neutrophils # 4.4 (1.3-7.7) k/uL Lymphocytes # 1.8 (1.0-4.8) k/uL Monocytes # 0.3 (0-1.0) k/uL Eosinophils # 0.3 (0-0.7) k/uL Basophils # 0.0 (0-0.2) k/uL Sodium 140 (137-145) mmol/L Potassium 4.2 (3.5-5.1) mmol/L Chloride 105 (98-107) mmol/L Carbon Dioxide 25 (22-30) mmol/L Anion Gap 10 mmol/L BUN 27 H (7-17) mg/dL Creatinine 1.00 (0.52-1.04) mg/dL Est GFR (CKD-EPI)AfAm 68 (>60 ml/min/1.73 sqM) Est GFR (CKD-EPI)NonAf 59 (>60 ml/min/1.73 sqM) Glucose 123 H (74-99) mg/dL POC Glucose (mg/dL) 114 H (75-99) mg/dL POC Glu [employer]er ID Selin, Lamar Calcium 9.6 (8.4-10.2) mg/dL Magnesium (1.6-2.3) mg/dL Total Bilirubin 0.5 (0.2-1.3) mg/dL AST 33 (14-36) U/L ALT 34 (9-52) U/L Alkaline Phosphatase 147 H (38-126) U/L Troponin I (0.000-0.034) ng/mL Total Protein 8.1 (6.3-8.2) g/dL Albumin 4.4 (3.5-5.0) g/dL Urine Color Urine Appearance (Clear) Urine pH (5.0-8.0) Ur Specific [place] (1.001-1.035) Urine Protein (Negative) Urine Glucose (UA) (Negative) Urine Ketones (Negative) Urine Blood (Negative) Urine Nitrite (Negative) Urine Bilirubin (Negative) Urine Urobilinogen (<2.0) mg/dL Ur Leukocyte Esterase (Negative) 06/09/18 06/09/18 06/09/18 Range/Units 05:15 05:15 06:13 WBC (3.8-10.6) k/uL RBC (3.80-5.40) m/uL Hgb (11.4-16.0) gm/dL Hct (34.0-46.0) % MCV (80.0-100.0) fL MCH (25.0-35.0) pg MCHC (31.0-37.0) g/dL RDW (11.5-15.5) % Plt Count (150-450) k/uL Neutrophils % % Lymphocytes % % Monocytes % % Eosinophils % % Basophils % % Neutrophils # (1.3-7.7) k/uL Lymphocytes # (1.0-4.8) k/uL Monocytes # (0-1.0) k/uL Eosinophils # (0-0.7) k/uL Basophils # (0-0.2) k/uL Sodium (137-145) mmol/L Potassium (3.5-5.1) mmol/L Chloride (98-107) mmol/L Carbon Dioxide (22-30) mmol/L Anion Gap mmol/L BUN (7-17) mg/dL Creatinine (0.52-1.04) mg/dL Est GFR (CKD-EPI)AfAm (>60 ml/min/1.73 sqM) Est GFR (CKD-EPI)NonAf (>60 ml/min/1.73 sqM) Glucose (74-99) mg/dL POC Glucose (mg/dL) (75-99) mg/dL POC Glu [employer] Project [employer]er ID Calcium (8.4-10.2) mg/dL Magnesium 2.3 (1.6-2.3) mg/dL Total Bilirubin (0.2-1.3) mg/dL AST (14-36) U/L ALT (9-52) U/L Alkaline Phosphatase (38-126) U/L Troponin I <0.012 (0.000-0.034) ng/mL Total Protein (6.3-8.2) g/dL Albumin (3.5-5.0) g/dL Urine Color Light Yellow Urine Appearance Clear (Clear) Urine pH 6.5 (5.0-8.0) Ur Specific [place] 1.011 (1.001-1.035) Urine Protein Negative (Negative) Urine Glucose (UA) 4+ H (Negative) Urine Ketones Negative (Negative) Urine Blood Negative (Negative) Urine Nitrite Negative (Negative) Urine Bilirubin Negative (Negative) Urine Urobilinogen <2.0 (<2.0) mg/dL Ur Leukocyte Esterase Negative (Negative) Disposition Clinical Impression: Dizziness Disposition: HOME SELF-CARE Condition: Good Is patient prescribed a controlled substance at d/c from ED?: No Referrals: Tmi Osborn MD [Primary Care Provider] - 1-2 days Time of Disposition: 07:27
[2018-06-09 06:33] LABS: Appearance,Urine Clear (Clear); Bilirubin,Urine Negative (Negative); Blood,Urine Negative (Negative); Color,Urine Light Yellow; Glucose,Urine (UA) 4+ (Negative); Ketones,Urine Negative (Negative); Leukocyte Esterase,Urine Negative (Negative); Nitrite,Urine Negative (Negative); PH, Urine 6.5 (5.0-8.0); Protein,Urine Negative (Negative); Specific Gravity,Urine 1.011 (1.001-1.035); Urobilinogen,Urine <2.0 mg/dL (<2.0)
--- NOTE | 2018-06-09 06:34 | XR ---
EXAMINATION TYPE: XR chest 2V DATE OF EXAM: 06/09/2018 COMPARISON: 02/24/2018 HISTORY: Chest pain TECHNIQUE: Frontal and lateral views of the chest are obtained. FINDINGS: There is no heart failure nor confluent pneumonic infiltrate. Costophrenic angles are melita r. There are chest leads. There are sternal wires. Bony thorax is intact. IMPRESSION: No active cardiopulmonary disease. Heart appears smaller than old exam.
[2018-06-09] MEDS ORDERED: SODIUM CHLORIDE 0.9% 1,000 ML IV STA (06:37)
[2018-06-09 07:35] VITALS: BP 121/63; PULSE 63; RESP 18
== END 2018-06-09 08:18 | disposition home or self-care (01) ==
LOC: EC 04:52
DX: R42 Dizziness and giddiness (principal); R53.1 Weakness; E11.65 Type 2 diabetes mellitus with hyperglycemia; R79.89 Other specified abnormal findings of blood chemistry; I25.119 Atherosclerotic heart disease of native coronary artery with unspecified angina pectoris; H40.9 Unspecified glaucoma; I10 Essential (primary) hypertension; I25.2 Old myocardial infarction; E66.9 Obesity, unspecified; Z68.36 Body mass index [BMI] 36.0-36.9, adult; Z87.891 Personal history of nicotine dependence; Z79.899 Other long term (current) drug therapy; Z88.0 Allergy status to penicillin; Z88.6 Allergy status to analgesic agent; Z91.010 Allergy to peanuts; Z95.818 Presence of other cardiac implants and grafts
CPT/HCPCS: 36415; 71046; 80053; 81003; 83735; 84484; 85025; 87086; 93005; 96360; 99284

== ENCOUNTER 2018-07-19 10:15 | Emergency (ER) | payer OTHER, MEDICARE ==
[2018-07-19 10:25] VITALS: BP 147/68; PULSE 72; RESP 18; TEMP 97.8
--- NOTE | 2018-07-19 10:27 | ED ---
Fall HPI - General Chief Complaint: Fall Stated Complaint: fall, facial injuries Time Seen by Provider: 07/19/18 10:18 Source: patient, EMS, RN notes reviewed, old records reviewed Mode of arrival: EMS - History of Present Illness Initial Comments: Patient is a 68-year-old female presents emergency department today with chief complaint of tripping and fall. She reports that she tripped at a store and hit her nose on the front of her face. She reports that she has a contusion over the left eyebrow. Patient reports that she does have history of triple bypass and is on Plavix. Patient has had no fevers or chills or any other symptoms. She denies any chest pain or shortness of breath. She states that she's been fell. He complains of a nosebleed at this time. Patient has history of right eye surgery. - Related Data Home Medications Medication Instructions Recorded Confirmed Ergocalciferol [Vitamin D2 50,000 unit PO SA 09/11/14 07/19/18 (DRISDOL)] Latanoprost Ophth [Xalatan 0.005%] 1 drop RIGHT EYE HS 09/11/14 07/19/18 Timolol 0.5% Ophth Soln [Timoptic 1 drop BOTH EYES BID 01/22/18 07/19/18 0.5% Ophth Soln] HYDROcodone/APAP 5-325MG [[place] 2 tab PO Q4HR PRN 07/19/18 07/19/18 5-325] Insulin Detemir [Levemir] 14 unit SQ HS 07/19/18 07/19/18 Insulin Glulisine [Apidra] 14 unit SQ HS 07/19/18 07/19/18 Multivitamins, Thera [Multivitamin 1 tab PO DAILY 07/19/18 07/19/18 (formulary)] Polyethylene Glycol 3350 [Miralax] 17 gm PO DAILY 07/19/18 07/19/18 Previous Rx's Medication Instructions Recorded Ascorbic Acid [Vitamin C] 500 mg PO BID-W/MEALS tab 02/03/18 Aspirin 81 mg PO DAILY chew 02/03/18 Atorvastatin [Lipitor] 40 mg PO DAILY tab 02/03/18 Citalopram Hydrobromide [CeleXA] 40 mg PO DAILY tab 02/03/18 Clopidogrel [Plavix] 75 mg PO DAILY tab 02/03/18 Ferrous Sulfate [Iron (65 MG 325 mg PO BID-W/MEALS tab 02/03/18 Elemental)] Furosemide [Lasix] 40 mg PO DAILY tab 02/03/18 Metoprolol Tartrate [Lopressor] 25 mg PO BID tab 02/03/18 Montelukast [Singulair] 10 mg PO HS tab 02/03/18 Pantoprazole [Protonix] 40 mg PO AC-BRKFST tablet. 02/03/18 Sulfamethox-Tmp 800-160Mg [Bactrim 1 tab PO Q12HR #14 tab 07/19/18 DS 800-160 mg] Allergies Allergy/AdvReac Type Severity Reaction Status Date / Time diclofenac Allergy Unknown Verified 07/19/18 10:36 peanut Allergy PER Verified 07/19/18 10:36 ALLERGY TEST Penicillins Allergy ITCHING Verified 07/19/18 10:36 AND RED SKIN Review of Systems ROS Statement: Those systems with pertinent positive or pertinent negative responses have been documented in the HPI. ROS Other: All systems not noted in ROS Statement are negative. Past Medical History Past Medical History: Coronary Artery Disease (CAD), Chest Pain / Angina, Diabetes Mellitus, Fibromyalgia, GERD/Reflux, Hyperlipidemia, Hypertension, Myocardial Infarction ([place]), Osteoarthritis (OA) Additional Past Medical History / Comment(s): Multivessel coronary artery disease, obesity, hypertension, hyperlipidemia, diabetes mellitus, retinopathy diabetic in nature, peripheral neuropathy, glaucoma, previous history of renal failure requiring dialysis for brief period of time and this has recovered Last Myocardial Infarction Date:: 08/2014 History of Any Multi-Drug Resistant Organisms: None Reported Past Surgical History: Cholecystectomy, Coronary Bypass/CABG, Heart Catheterization, Tubal Ligation Additional Past Surgical History / Comment(s): RIGHT AND LEFT KNEE ARTHROSCOPIC , RIGHT EYE SURGERY, bilateral cataract surgery, sciatica, lap band surgery. Past Anesthesia/Blood Transfusion Reactions: No Reported Reaction Past Psychological History: Depression Smoking Status: Former smoker Past Alcohol Use History: None Reported, Rare Past Drug Use History: None Reported - Past Family History Father Family Medical History: Cancer Mother Family Medical History: Diabetes Mellitus, Myocardial Infarction ([place]) (At age 58.) General Exam - General Exam Comments Initial Comments: This is a 60-year-old female. Alert and oriented. No significant distress. Limitations: no limitations General appearance: alert, in no apparent distress Head exam: Present: atraumatic, normocephalic, normal inspection Eye exam: Present: normal appearance, PERRL, EOMI. Absent: scleral icterus, conjunctival injection, periorbital swelling ENT exam: Present: normal exam, mucous membranes moist, TM's normal bilaterally , other (Patient has a contusion over the left eyebrow. Small abrasion over the bridge of the nose. Patient has evidence of a bleed over the left nare. ). Absent: normal oropharynx Neck exam: Present: normal inspection. Absent: tenderness, meningismus, lymphadenopathy Respiratory exam: Present: normal lung sounds bilaterally. Absent: respiratory distress, wheezes, rales, rhonchi, stridor Cardiovascular Exam: Present: regular rate, normal rhythm, normal heart sounds. Absent: systolic murmur, diastolic murmur, rubs, gallop, clicks GI/Abdominal exam: Present: soft, normal bowel sounds. Absent: distended, tenderness, guarding, rebound, rigid Extremities exam: Present: normal inspection, full ROM, normal capillary refill. Absent: tenderness, pedal edema, joint swelling, calf tenderness Back exam: Present: normal inspection Neurological exam: Present: alert, oriented X3, CN II-XII intact Psychiatric exam: Present: normal affect, normal mood Skin exam: Present: warm, dry, intact, normal color. Absent: rash Course Vital Signs 07/19/18 10:19 Temperature 97.8 F Pulse Rate 72 Respiratory 18 Rate Blood Pressure 147/68 O2 Sat by Pulse 99 Oximetry Medical Decision Making - Medical Decision Making 68-year-old female presents emergency room today after tripping falling the store. She fell face first. She does have contusions of her left eyebrow and overshe does have a bloody nose from the right naris. Patient went for computed tomography scan of her brain and facial bones. His evidence of significant paranasal sinus disease as well as a fracture of the nasal bone. Note for any acute chest pain or belly. Patient is on blood thinners. I discussed the possibility of a delayed bleed. I discussed that we could transfer the Patient for further monitoring at a neurosurgical center such as [facility]. Patient reports he does not want to do that at this time. She is neurologically intact and laughing and has no acute distress. With the nosebleed I did use Afrin spray and topical lidocaine with epinephrine over the area. Bleeding was reduced to slow trickle. She is concerned is still had a slight bleed and we did use nasal cautery. I discussed using antibiotic ointment over the area as well as saline spray to keep the mucous membranes moistened. Patient agrees to treatment plan will comply. Return parameters were discussed. I also will put the Patient on antibiotics for sinusitis. She does have ALLERGIES to penicillins. Social CT did mention evidence of a foreign body in the right eye. Patient reports that is chronic from after her surgery. No acute changes. Notice of trauma within the right eye. - Radiology Data Radiology results: report reviewed Interpreted by me: Brain CT is negative for any acute process. Mild age-related atrophy. Extensive paranasal sinus air-fluid levels and debris. Given patient's room consider CT facial bone survey for occult fracture. Paranasal sinuses seem to be considered within the differential. Comminuted minimally displaced acute fracture. Additionally at the right aspect of the nasal bridge. There is acute paranasal sinus disease. There is a 7 x 3 x 3 mm intraorbital metallic foreign body. Correlate with prior surgery or trauma. This is related to patient's prior surgery. Disposition Clinical Impression: Fall, Nasal fracture, Sinusitis Disposition: HOME SELF-CARE Condition: Good Instructions: Nasal Fracture (ED), Fall Prevention for Older Adults (ED), Head Injury (ED) Additional Instructions: Patient advised to use saline spray over the nose. He has any further nosebleeds applied Afrin spray and use nasal clamp for 20 minutes. Patient to follow-up with primary care physician. Apply ice over the nose or the face. Patient has any signs of altered mental status return to the emergency department at once. Prescriptions: Sulfamethox-Tmp 800-160Mg [Bactrim DS 800-160 mg] 1 tab PO Q12HR #14 tab Is patient prescribed a controlled substance at d/c from ED?: No Referrals: Tim Osborn MD [Primary Care Provider] - 1-2 days Time of Disposition: 12:37
[2018-07-19] MEDS ORDERED: OXYMETAZOLINE 0.05% NASL SPRAY 1 SPRAY BOTTLE NASAL STA (10:35)
[2018-07-19] MEDS ORDERED: LIDOCAINE/EPINEPHR/TETRACAINE 5 ML BOTTLE TOPICAL ONE (10:35)
--- NOTE | 2018-07-19 11:22 | CT ---
EXAMINATION TYPE: CT brain wo con DATE OF EXAM: 07/19/2018 COMPARISON: Fall on Plavix INDICATION: Trip and fall. pain and swelling to nose DLP: 1642 (brain and facial) mGycm, Automated exposure control for dose reduction was used. CONTRAST: None CT of the brain is performed utilizing 3 mm thick sections through the posterior fossa and 3 mm thick sections through the remaining calvarium. Study is performed within 24 hours of arrival to the hosp ital. No abnormal hyperdensity is present to suggest an acute intracranial hemorrhage. No mass lesion is evident. No acute infarcts are evident. Ventricles and sulci are slightly prominent for the patient age. Air and debris is scattered through the bilateral maxillary sinuses into the nasal passages. Air-flui d levels within the right sphenoid sinus and to a minimal degree left sphenoid sinus. The frontal sin uses are clear. The prior uncinectomies and ethmoidectomies. No obvious orbital floor fractures are evident. Medial o rbital clements appear intact. There is prior surgery on the right orbit. Findings within the sinuses ma y be related to acute paranasal sinus disease. There is soft tissue swelling superficially along the frontal region. No underlying fracture is evide nt. IMPRESSIONS: 1. No acute intracranial process. 2. Mild age-related atrophy 3. Extensive paranasal sinus air-fluid levels and debris. Given the patient's trauma, consider CT fac ial bones to evaluate for occult fractures. Paranasal sinusitis should be considered within the diffe rential.
--- NOTE | 2018-07-19 11:44 | CT ---
EXAMINATION TYPE: CT facial bones wo con DATE OF EXAM: 07/19/2018 COMPARISON: NONE HISTORY: Trip and fall. pain and swelling to nose CT DLP: 1642 (facial and brain) mGycm. Automated Exposure Control for Dose Reduction was Utilized. TECHNIQUE: CT scan of the facial bones is performed without contrast, axial images are obtained, raul nal reformatted images are also reviewed. FINDINGS: There is small acute comminuted minimally displaced fracture through the nasal bridge right aspect seen best on axial image 35 with moderate associated soft tissue swelling. The orbital floors and clements are intact. Right globe shows horizontal buckle mid aspect. There is met allic foreign body superior to the anterior aspect right globe coronal image 25 and axial image 47 me asuring roughly 7 x 3 x 3 mm. Streak artifact is noted The zygomatic arches are intact. Visualized portion of mandible is intact. Temporomandibular joints s how asymmetric right-sided narrowing. The pterygoid plates are intact. There is near complete opacification bilateral maxillary sinuses. There is evidence of prior paranasa l sinus surgery. There is air-fluid level in the right sphenoid sinus and patchy opacification with a ir-fluid level in the left sphenoid sinus. There is opacification with air-fluid level in the inferio r right frontal sinus. IMPRESSION: 1. Comminuted minimally displaced acute fracture with soft tissue swelling involving the right aspect of the nasal bridge. 2. Acute paranasal sinus disease as detailed above despite prior sinus surgery. 3. 7 x 3 x 3 mm right intraorbital metallic foreign body along superior aspect of the anterior globe, correlate clinically with prior surgery and/or trauma.
[2018-07-19] MEDS ORDERED: SILVER NITRATE APPLICATOR 1 EACH STICK..EA. TOPICAL STA (12:09)
== END 2018-07-19 12:55 | disposition home or self-care (01) ==
LOC: EC 10:15
DX: S02.2XXA Fracture of nasal bones, initial encounter for closed fracture (principal); S00.12XA Contusion of left eyelid and periocular area, initial encounter; J32.9 Chronic sinusitis, unspecified; H40.9 Unspecified glaucoma; I25.119 Atherosclerotic heart disease of native coronary artery with unspecified angina pectoris; I25.2 Old myocardial infarction; M19.90 Unspecified osteoarthritis, unspecified site; E11.42 Type 2 diabetes mellitus with diabetic polyneuropathy; E11.319 Type 2 diabetes mellitus with unspecified diabetic retinopathy without macular edema; Z87.891 Personal history of nicotine dependence; Z95.818 Presence of other cardiac implants and grafts; Z95.1 Presence of aortocoronary bypass graft; Z79.4 Long term (current) use of insulin; Z79.899 Other long term (current) drug therapy; Z88.0 Allergy status to penicillin; Z91.010 Allergy to peanuts; Z88.8 Allergy status to other drugs, medicaments and biological substances; W01.0XXA Fall on same level from slipping, tripping and stumbling without subsequent striking against object, initial encounter; Y92.89 Other specified places as the place of occurrence of the external cause
CPT/HCPCS: 30901; 70450; 70486; 99284

== ENCOUNTER → 2018-09-29 | Outpatient (CLI) | payer OTHER, MEDICARE ==
--- NOTE | 2018-09-29 14:30 | CT ---
EXAMINATION TYPE: CT lumbar spine w con DATE OF EXAM: 09/29/2018 COMPARISON: CT abdomen pelvis May 22, 2016 HISTORY: lower back pain/issues with walking/bilaterally hip pain CT DLP: 3213.80 mGycm Automated exposure control for dose reduction was used. CONTRAST: CT scan of the lumbar is performed with IV Contrast, patient injected with 100 mL of Isovue 300. Enhanced CT of the lumbar spine was performed. Bone and soft tissue window settings are submitted as well as coronal and sagittal reconstructions. 5 lumbar-type vertebra are redemonstrated. There is persistent levoconvex scoliosis centered at L4 le jesus. There is persistent straightening of lumbar spine on sagittal images. The body heights are maint ained. There is moderate multilevel disc space narrowing and vacuum disc phenomenon. Posterior disc h erniations and spurring effacing anterior thecal sac mid to lower lumbar levels on sagittal images. T here is moderate multilevel anterior and lateral spurring. Axial images at the T12-L1 level remain within normal limits. Axial images at the L1-L2 level show mild to moderate broad disc bulge with right lateral spur disc c omplex. Spinal canal is mildly effaced. Bilateral neural foramina remain patent. Axial images at the L2-L3 level show vacuum disc phenomenon with mild to moderate broad disc bulge ef facing anterior thecal sac, there is asymmetric mild left-sided anterior inferior neural foraminal na rrowing noted. Axial images at the L3-L4 level show broad-based posterior disc protrusion and vacuum disc phenomenon with mild to moderate facet degenerative changes bilaterally. There is spinal canal stenosis seen at this level axial image 45 as there is effacement of anterior and posterior lateral thecal sac noted. There is moderate bilateral inferior neural foraminal narrowing noted. Axial images at the L4-L5 level show mild to moderate facet degenerative changes bilaterally. There i s moderate to advanced broad disc bulge. There is effacement of the anterior and lesser degree chain link fence installer ior lateral thecal sac. There is moderate left and severe right-sided neural foraminal narrowing seen . Encroachment right L4 nerve is felt present. Axial images at L5-S1 level show moderate facet degenerative changes bilaterally. There is mild broad disc bulge seen. Spinal canal is preserved as there is prominence of epidural fat. There is marginal spurring. There is mild right and moderate left-sided neural foraminal narrowing noted. There is moderate to severe calcified plaque of aorta extending into branch vessels. There is mild to moderate fat replaced atrophy of visualized pancreas. No suspicious enhancement is seen. IMPRESSION: Multilevel degenerative changes in lumbar spine as detailed above.
== END | disposition home or self-care (01) ==
LOC: RADCTMAIN 13:04
PROVIDERS: ATTEND Internal Medicine
DX: M47.816 Spondylosis without myelopathy or radiculopathy, lumbar region (principal)
CPT/HCPCS: 82565; 84520; 72132; Q9967

== ENCOUNTER 2018-10-10 03:38 | Observation (INO) | payer OTHER, MEDICARE ==
--- NOTE | 2018-10-10 04:13 | ED ---
General Adult HPI - General Chief complaint: Chest Pain Stated complaint: chest pain Time Seen by Provider: 10/10/18 03:45 Source: patient, family, RN notes reviewed, old records reviewed Mode of arrival: ambulatory Limitations: no limitations - History of Present Illness Initial comments: 68-year-old female presents with 1 hour history of left-sided chest pain. Patient describes the pain as dull. She took 2 nitroglycerin for aspirin at home prior to arrival. Second dose of nitroglycerin did improve her pain. She has history of coronary artery disease status post triple vessel bypass in December of this year. Denies any radiating pain. Denies vomiting or diaphoresis. She does have history of fibromyalgia and states this pain is different than her normal fibromyalgia pain. She does report some worsening of the left sided chest pain with movement. Denies injury. Denies cough or fever. History diabetes. She is compliant with her medications. - Related Data Home Medications Medication Instructions Recorded Confirmed Ergocalciferol [Vitamin D2 50,000 unit PO SA 09/11/14 07/19/18 (DRISDOL)] Latanoprost Ophth [Xalatan 0.005%] 1 drop RIGHT EYE HS 09/11/14 07/19/18 Timolol 0.5% Ophth Soln [Timoptic 1 drop BOTH EYES BID 01/22/18 07/19/18 0.5% Ophth Soln] HYDROcodone/APAP 5-325MG [[place] 2 tab PO Q4HR PRN 07/19/18 07/19/18 5-325] Insulin Detemir [Levemir] 14 unit SQ HS 07/19/18 07/19/18 Insulin Glulisine [Apidra] 14 unit SQ HS 07/19/18 07/19/18 Multivitamins, Thera [Multivitamin 1 tab PO DAILY 07/19/18 07/19/18 (formulary)] Polyethylene Glycol 3350 [Miralax] 17 gm PO DAILY 07/19/18 07/19/18 Previous Rx's Medication Instructions Recorded Ascorbic Acid [Vitamin C] 500 mg PO BID-W/MEALS tab 02/03/18 Aspirin 81 mg PO DAILY chew 02/03/18 Atorvastatin [Lipitor] 40 mg PO DAILY tab 02/03/18 Citalopram Hydrobromide [CeleXA] 40 mg PO DAILY tab 02/03/18 Clopidogrel [Plavix] 75 mg PO DAILY tab 02/03/18 Ferrous Sulfate [Iron (65 MG 325 mg PO BID-W/MEALS tab 02/03/18 Elemental)] Furosemide [Lasix] 40 mg PO DAILY tab 02/03/18 Metoprolol Tartrate [Lopressor] 25 mg PO BID tab 02/03/18 Montelukast [Singulair] 10 mg PO HS tab 02/03/18 Pantoprazole [Protonix] 40 mg PO AC-BRKFST tablet. 02/03/18 Sulfamethox-Tmp 800-160Mg [Bactrim 1 tab PO Q12HR #14 tab 07/19/18 DS 800-160 mg] Allergies Allergy/AdvReac Type Severity Reaction Status Date / Time diclofenac Allergy Unknown Verified 10/10/18 03:44 peanut Allergy PER Verified 10/10/18 03:44 ALLERGY TEST Penicillins Allergy ITCHING Verified 10/10/18 03:44 AND RED SKIN Review of Systems ROS Statement: Those systems with pertinent positive or pertinent negative responses have been documented in the HPI. ROS Other: All systems not noted in ROS Statement are negative. Past Medical History Past Medical History: Coronary Artery Disease (CAD), Chest Pain / Angina, Diabetes Mellitus, Fibromyalgia, GERD/Reflux, Hyperlipidemia, Hypertension, Myocardial Infarction ([place]), Osteoarthritis (OA) Additional Past Medical History / Comment(s): Multivessel coronary artery disease, obesity, hypertension, hyperlipidemia, diabetes mellitus, retinopathy diabetic in nature, peripheral neuropathy, glaucoma, previous history of renal failure requiring dialysis for brief period of time and this has recovered Last Myocardial Infarction Date:: 08/2014 History of Any Multi-Drug Resistant Organisms: None Reported Past Surgical History: Cholecystectomy, Coronary Bypass/CABG, Heart Catheterization, Tubal Ligation Additional Past Surgical History / Comment(s): RIGHT AND LEFT KNEE ARTHROSCOPIC , RIGHT EYE SURGERY, bilateral cataract surgery, sciatica, lap band surgery. Past Anesthesia/Blood Transfusion Reactions: No Reported Reaction Past Psychological History: Depression Smoking Status: Former smoker Past Alcohol Use History: None Reported, Rare Past Drug Use History: None Reported - Past Family History Father Family Medical History: Cancer Mother Family Medical History: Diabetes Mellitus, Myocardial Infarction ([place]) (At age 58.) General Exam Limitations: no limitations General appearance: alert, in no apparent distress Head exam: Present: atraumatic, normocephalic Eye exam: Present: normal appearance, PERRL ENT exam: Present: normal exam Neck exam: Present: normal inspection. Absent: tenderness, meningismus Respiratory exam: Present: normal lung sounds bilaterally. Absent: respiratory distress, wheezes Cardiovascular Exam: Present: regular rate, normal rhythm GI/Abdominal exam: Present: soft. Absent: distended, tenderness Extremities exam: Present: normal inspection, normal capillary refill. Absent: pedal edema Neurological exam: Present: alert, oriented X3, CN II-XII intact. Absent: motor sensory deficit Psychiatric exam: Present: normal affect, normal mood Skin exam: Present: warm, dry, intact. Absent: cyanosis, diaphoretic Course Vital Signs 10/10/18 10/10/18 10/10/18 03:39 03:53 06:00 Temperature 98.5 F Pulse Rate 69 58 L Respiratory 20 13 Rate Blood Pressure 127/71 146/76 O2 Sat by Pulse 100 99 98 Oximetry EKG Findings - EKG Comments: EKG Findings:: EKG: Normal sinus rhythm, rate of 66, NE interval 172, QRS duration 78, QTC 434, no ST segment elevation or depression, T waves are upright. Medical Decision Making - Medical Decision Making 68-year-old female history of coronary artery disease status post triple vessel bypass in December of this year presenting with left anterior chest pain. Patient' s pain has some typical features however mostly atypical nature. EKG is nonischemic. Chest x-ray negative for cardiopulmonary disease. Patient has normal CBC, normal CMP, and initial troponin is negative. Given the patient's risk factors I will keep her in observation for telemetry, cardiac consultation , serial enzymes. Case is discussed with admitting physician who will accept. - Lab Data Result diagrams: 10/10/18 04:22 10/10/18 04:22 Lab Results 10/10/18 10/10/18 10/10/18 Range/Units 04:22 04:22 04:22 WBC 6.6 (3.8-10.6) k/uL RBC 4.06 (3.80-5.40) m/uL Hgb 12.3 (11.4-16.0) gm/dL Hct 38.3 (34.0-46.0) % MCV 94.2 (80.0-100.0) fL MCH 30.2 (25.0-35.0) pg MCHC 32.1 (31.0-37.0) g/dL RDW 14.2 (11.5-15.5) % Plt Count 277 (150-450) k/uL Neutrophils % 70 % Lymphocytes % 20 % Monocytes % 4 % Eosinophils % 4 % Basophils % 0 % Neutrophils # 4.7 (1.3-7.7) k/uL Lymphocytes # 1.4 (1.0-4.8) k/uL Monocytes # 0.3 (0-1.0) k/uL Eosinophils # 0.2 (0-0.7) k/uL Basophils # 0.0 (0-0.2) k/uL PT (9.0-12.0) sec INR (<1.2) APTT (22.0-30.0) sec Sodium 140 (137-145) mmol/L Potassium 4.5 (3.5-5.1) mmol/L Chloride 107 (98-107) mmol/L Carbon Dioxide 24 (22-30) mmol/L Anion Gap 9 mmol/L BUN 22 H (7-17) mg/dL Creatinine 1.01 (0.52-1.04) mg/dL Est GFR (CKD-EPI)AfAm 66 (>60 ml/min/1.73 sqM) Est GFR (CKD-EPI)NonAf 57 (>60 ml/min/1.73 sqM) Glucose 171 H (74-99) mg/dL Calcium 9.5 (8.4-10.2) mg/dL Magnesium 2.2 (1.6-2.3) mg/dL Total Bilirubin 0.5 (0.2-1.3) mg/dL AST 27 (14-36) U/L ALT 26 (9-52) U/L Alkaline Phosphatase 101 (38-126) U/L Total Creatine Kinase 59 (30-135) U/L CK-MB (CK-2) 0.8 (0.0-2.4) ng/mL CK-MB (CK-2) Rel Index 1.4 Troponin I <0.012 (0.000-0.034) ng/mL Total Protein 7.5 (6.3-8.2) g/dL Albumin 3.8 (3.5-5.0) g/dL 12/11/18 Range/Units 04:22 WBC (3.8-10.6) k/uL RBC (3.80-5.40) m/uL Hgb (11.4-16.0) gm/dL Hct (34.0-46.0) % MCV (80.0-100.0) fL MCH (25.0-35.0) pg MCHC (31.0-37.0) g/dL RDW (11.5-15.5) % Plt Count (150-450) k/uL Neutrophils % % Lymphocytes % % Monocytes % % Eosinophils % % Basophils % % Neutrophils # (1.3-7.7) k/uL Lymphocytes # (1.0-4.8) k/uL Monocytes # (0-1.0) k/uL Eosinophils # (0-0.7) k/uL Basophils # (0-0.2) k/uL PT 9.7 (9.0-12.0) sec INR 0.9 (<1.2) APTT 24.1 (22.0-30.0) sec Sodium (137-145) mmol/L Potassium (3.5-5.1) mmol/L Chloride (98-107) mmol/L Carbon Dioxide (22-30) mmol/L Anion Gap mmol/L BUN (7-17) mg/dL Creatinine (0.52-1.04) mg/dL Est GFR (CKD-EPI)AfAm (>60 ml/min/1.73 sqM) Est GFR (CKD-EPI)NonAf (>60 ml/min/1.73 sqM) Glucose (74-99) mg/dL Calcium (8.4-10.2) mg/dL Magnesium (1.6-2.3) mg/dL Total Bilirubin (0.2-1.3) mg/dL AST (14-36) U/L ALT (9-52) U/L Alkaline Phosphatase (38-126) U/L Total Creatine Kinase (30-135) U/L CK-MB (CK-2) (0.0-2.4) ng/mL CK-MB (CK-2) Rel Index Troponin I (0.000-0.034) ng/mL Total Protein (6.3-8.2) g/dL Albumin (3.5-5.0) g/dL Disposition Clinical Impression: Chest pain Disposition: ADMITTED IP TO THIS [facility] Condition: Stable Is patient prescribed a controlled substance at d/c from ED?: No Referrals: Tim Osborn MD [Primary Care Provider] - 1-2 days Time of Disposition: 07:04 Decision to Admit Reason: Admit from EC Decision Date: 10/10/18 Decision Time: 07:05
--- NOTE | 2018-10-10 04:41 | XR ---
EXAM: XR Chest, 2 Views CLINICAL HISTORY: ITS.REASON XR Reason: Chest Pain TECHNIQUE: Frontal and lateral views of the chest. COMPARISON: 07/24/18 chest x-ray IMPRESSION: Cardiomegaly. No consolidation or pleural effusion. Median sternotomy wires are intact.
[2018-10-10 04:43] LABS: Basophils % (A) 0 %; Eosinophils # (A) 0.2 k/uL (0-0.7); Eosinophils % (A) 4 %; HCT 38.3 % (34.0-46.0); HGB 12.3 gm/dL (11.4-16.0); Lymphocytes # (A) 1.4 k/uL (1.0-4.8); Lymphocytes % (A) 20 %; MCH 30.2 pg (25.0-35.0); MCHC 32.1 g/dL (31.0-37.0); MCV 94.2 fL (80.0-100.0); Mean Platelet Volume 6.7; Monocytes # (A) 0.3 k/uL (0-1.0); Monocytes % (A) 4 %; Neutrophils # (A) 4.7 k/uL (1.3-7.7); Neutrophils % (A) 70 %; Platelet Count 277 k/uL (150-450); RBC 4.06 m/uL (3.80-5.40); RDW 14.2 % (11.5-15.5); WBC 6.6 k/uL (3.8-10.6)
[2018-10-10 04:51] LABS: Potassium 4.5 mmol/L (3.5-5.1)
[2018-10-10 04:53] LABS: Albumin 3.8 g/dL (3.5-5.0); Calcium 9.5 mg/dL (8.4-10.2); INR 0.9 (<1.2); Magnesium 2.2 mg/dL (1.6-2.3); Partial Thromboplastin Time 24.1 sec (22.0-30.0); Prothrombin Time 9.7 sec (9.0-12.0); Total Bilirubin 0.5 mg/dL (0.2-1.3); Total Protein 7.5 g/dL (6.3-8.2)
[2018-10-10 05:03] LABS: Creatine Kinase 59 U/L (30-135)
[2018-10-10 05:16] LABS: Creatine Kinase MB 0.8 ng/mL (0.0-2.4); Troponin I <0.012 ng/mL (0.000-0.034)
[2018-10-10] MEDS ORDERED: ASPIRIN 325 MG TAB PO STA (06:58)
[2018-10-10] MEDS ORDERED: NITROGLYCERIN SL TABS 0.4 MG TAB SUBLINGUAL PRN (06:58)
[2018-10-10] MEDS ORDERED: NALOXONE 0.4 MG/ML 1 ML VIAL IV PRN (06:59)
[2018-10-10] MEDS ORDERED: ACETAMINOPHEN TAB 325 MG TAB PO PRN (06:59)
[2018-10-10] MEDS ORDERED: MORPHINE SULFATE 4 MG/ML SYRINGE IV PRN (06:59)
[2018-10-10] MEDS ORDERED: ONDANSETRON 4 MG/2 ML VIAL IVP PRN (06:59)
--- NOTE | 2018-10-10 07:48 | P.HPIM ---
History of Present Illness Chief complaint Chest pain History of present illness The patient is a 68-year-old female with a history of coronary artery disease and previous coronary artery bypass surgery presented with development of left chest pressure earlier this morning. Apparently she had taken 2 nitroglycerin with some relief pain the pain seemed to wake her up early this morning. Denies any pleuritic component or shortness of breath associated with this. The patient has recently seen her principal technical writer from [facility]. Apparently she was started on lisinopril for blood pressure. Pain is still present but improved at this time. Past medical history Patient has history of coronary artery disease and previous bypass surgery which she had here earlier this year in December. 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 Home medications Timolol 1 drop in both eyes twice a day 0.5% Protonix 40 mg before breakfast Metoprolol tartrate 25 mg twice a day Xalatan 0.005% one drop in the right eye at at bedtime Levemir 14 units at at bedtime Lasix 40 mg daily Plavix 75 mg daily Lipitor 40 mg daily Aspirin 81 mg daily Singular 10 mg at at bedtime MiraLAX 17 g daily Peter 14 units insulin subcu at at bedtime Nenzel 5-325 2 tablets every 4 hours when necessary for pain of osteoarthritis and fibromyalgia Ferrous sulfate 325 mg twice a day Vitamin D2 50,000 units every Tuesday Celexa 40 mg daily Vitamin C 500 mg twice a day with meals Patient recently started on lisinopril for blood pressure per cardiology. Previous surgeries include the coronary artery bypass., Cholecystectomy, tubal ligation, bilateral cataract surgery, previous lap band surgery Right and left knee arthroscopic surgery. Please refer to list of medications. Patient's ALLERGIES include penicillin with rash and itching. Also ALLERGIC to peanuts. ALLERGIC to diclofenac Review of systems As mentioned in history of present illness. She denies any fever or chills. No unusual cough or phlegm production. No shortness of breath. No pleuritic chest pain. No nausea or vomiting. No new urinary or bowel symptoms. No unusual leg edema. No history of any recent trauma. Social history Lives locally with her . Very minimal remote history of smoking as a teenager. No unusual alcohol intake. Family history is positive for mother with diabetes and myocardial infarction at age 58. Physical examination Patient is alert sitting up in bed in the emergency room. Vital signs show a temperature 90.5 with a pulse of 58 respirations 13. Blood pressure 146/76 and she is 98% saturated on 2 L. Head and neck exam unremarkable without adenopathy, bruits or thyromegaly. Breast and pelvic exam deferred Lungs were clear to auscultation and percussion. Chest wall did reveal some tenderness in the left chest area but patient states her pain and pressure was different. Regular S1 and S2 without murmurs or rubs appreciated. Abdomen is obese but soft and nontender without organomegaly or masses. Extremities reveal no edema. Neurologically she is alert and oriented. Cranial nerves intact. Moving all extremities without focal weakness. Laboratory CBC was unremarkable with a white count of 6.6 and hemoglobin 12.3 and a platelet count of 277 INR is 0.9 Electrolytes were normal. BUN of 22 with creatinine 1.01 giving her GFR of 57. Blood sugar 171. Other liver tests were normal. Troponin less than 0.012. CK 59. It was reported to me that her EKG did not show acute changes. Chest x-ray also no acute changes. Impressions and plans Overall this 68-year-old female with many underlying risk factors as delineated above presents with different chest pain. Left chest. Initial enzymes were unremarkable. She is post coronary artery bypass earlier this year. Discussed with the ER physician. Serial enzymes to be performed. Cardiology consult. Discussed with patient and in the emergency room. Further recommendations pending results of above. Past Medical History Past Medical History: Coronary Artery Disease (CAD), Chest Pain / Angina, Diabetes Mellitus, Fibromyalgia, GERD/Reflux, Hyperlipidemia, Hypertension, Myocardial Infarction ([place]), Osteoarthritis (OA) Additional Past Medical History / Comment(s): Multivessel coronary artery disease, obesity, hypertension, hyperlipidemia, diabetes mellitus, retinopathy diabetic in nature, peripheral neuropathy, glaucoma, previous history of renal failure requiring dialysis for brief period of time and this has recovered Last Myocardial Infarction Date:: 08/2014 History of Any Multi-Drug Resistant Organisms: None Reported Past Surgical History: Cholecystectomy, Coronary Bypass/CABG, Heart Catheterization, Tubal Ligation Additional Past Surgical History / Comment(s): RIGHT AND LEFT KNEE ARTHROSCOPIC , RIGHT EYE SURGERY, bilateral cataract surgery, sciatica, lap band surgery. Past Anesthesia/Blood Transfusion Reactions: No Reported Reaction Past Psychological History: Depression Smoking Status: Former smoker Past Alcohol Use History: None Reported, Rare Past Drug Use History: None Reported - Past Family History Father Family Medical History: Cancer Mother Family Medical History: Diabetes Mellitus, Myocardial Infarction ([place]) (At age 58.) Medications and Allergies Home Medications Medication Instructions Recorded Confirmed Type Ergocalciferol [Vitamin D2 50,000 unit PO SA 09/11/14 07/19/18 History (DRISDOL)] Latanoprost Ophth [Xalatan 0.005%] 1 drop RIGHT EYE HS 09/11/14 07/19/18 History Timolol 0.5% Ophth Soln [Timoptic 1 drop BOTH EYES BID 01/22/18 07/19/18 History 0.5% Ophth Soln] Ascorbic Acid [Vitamin C] 500 mg PO BID-W/MEALS tab 02/03/18 07/19/18 Rx Aspirin 81 mg PO DAILY chew 02/03/18 07/19/18 Rx Atorvastatin [Lipitor] 40 mg PO DAILY tab 02/03/18 07/19/18 Rx Citalopram Hydrobromide [CeleXA] 40 mg PO DAILY tab 02/03/18 07/19/18 Rx Clopidogrel [Plavix] 75 mg PO DAILY tab 02/03/18 07/19/18 Rx Ferrous Sulfate [Iron (65 MG 325 mg PO BID-W/MEALS tab 02/03/18 07/19/18 Rx Elemental)] Furosemide [Lasix] 40 mg PO DAILY tab 02/03/18 07/19/18 Rx Metoprolol Tartrate [Lopressor] 25 mg PO BID tab 02/03/18 07/19/18 Rx Montelukast [Singulair] 10 mg PO HS tab 02/03/18 07/19/18 Rx Pantoprazole [Protonix] 40 mg PO AC-BRKFST tablet.dr 02/03/18 07/19/18 Rx HYDROcodone/APAP 5-325MG [[place] 2 tab PO Q4HR PRN 07/19/18 07/19/18 History 5-325] Insulin Detemir [Levemir] 14 unit SQ HS 07/19/18 07/19/18 History Insulin Glulisine [Apidra] 14 unit SQ HS 07/19/18 07/19/18 History Multivitamins, Thera [Multivitamin 1 tab PO DAILY 07/19/18 07/19/18 History (formulary)] Polyethylene Glycol 3350 [Miralax] 17 gm PO DAILY 07/19/18 07/19/18 History Sulfamethox-Tmp 800-160Mg [Bactrim 1 tab PO Q12HR #14 tab 07/19/18 Rx DS 800-160 mg] Allergies Allergy/AdvReac Type Severity Reaction Status Date / Time diclofenac Allergy Unknown Verified 10/10/18 03:44 peanut Allergy PER Verified 10/10/18 03:44 ALLERGY TEST Penicillins Allergy ITCHING Verified 10/10/18 03:44 AND RED SKIN Physical Exam Vitals: Vital Signs Temp Pulse Resp BP Pulse Ox 10/10/18 06:00 58 L 13 146/76 98 10/10/18 03:53 99 10/10/18 03:39 98.5 F 69 20 127/71 100 Intake and Output 10/09/18 10/10/18 10/10/18 22:59 06:59 14:59 Other: Weight 118.841 kg Results CBC & Chem 7: 10/10/18 04:22 10/10/18 04:22 Labs: Abnormal Lab Results - Last 24 Hours (Table) 10/10/18 Range/Units 04:22 BUN 22 H (7-17) mg/dL Glucose 171 H (74-99) mg/dL
[2018-10-10 09:17] VITALS: RESP 18
[2018-10-10] MEDS ORDERED: LISINOPRIL 2.5 MG TAB PO SCH (10:00)
[2018-10-10] MEDS: HYDROcodone/APAP 5-325MG 1 EACH TAB PO PRN ×2 (10:19→20:34)
[2018-10-10 11:44] LABS: Glucose,Whole Blood 159 mg/dL (75-99)
[2018-10-10] MEDS: FUROSEMIDE 40 MG TAB PO SCH (12:09)
[2018-10-10] MEDS: CLOPIDOGREL 75 MG TAB PO SCH (12:09)
[2018-10-10] MEDS: METOPROLOL TARTRATE 25 MG TAB PO SCH ×2 (12:09→20:34)
[2018-10-10] MEDS: PANTOPRAZOLE 40 MG TABLET PO SCH (12:09)
[2018-10-10] MEDS: MULTIVITAMINS, THERA 1 EACH TAB PO SCH (12:09)
[2018-10-10] MEDS: ATORVASTATIN 40 MG TAB PO SCH (12:09)
[2018-10-10] MEDS: INSULIN ASPART 100 UNIT/ML 1 ML 10 ML VIAL SQ SCH ×3 (12:11→20:44)
[2018-10-10] MEDS: FERROUS SULFATE 325 MG TAB PO SCH ×2 (12:28→18:39)
[2018-10-10] MEDS: POLYETHYLENE GLYCOL 3350 17 GM POWD.PACK PO SCH (12:28)
[2018-10-10] MEDS: NON-FORMULARY DRUG (Empagliflozin [Jardiance] 25 MG) PO SCH (12:28)
[2018-10-10] MEDS: CITALOPRAM HYDROBROMIDE 20 MG TAB PO SCH (12:28)
[2018-10-10 12:57] LABS: Creatine Kinase 51 U/L (30-135)
[2018-10-10 13:11] LABS: Creatine Kinase MB 0.6 ng/mL (0.0-2.4); Troponin I <0.012 ng/mL (0.000-0.034)
--- NOTE | 2018-10-10 15:33 | CONS ---
CONSULTATION Mrs. Akers is a 68-year-old female with a known history of coronary artery disease who presented with chest discomfort. She was lying in bed on her left side and felt some discomfort in the arm, switched position, but the discomfort persisted. Because of that. she came into the emergency room time my evaluation she is pain-free. She has a known history of chronic her arthritic pain and fibromyalgia. She also has a history of coronary artery disease in December of 2017, underwent coronary artery bypass grafting with CUMMINGS to LAD, saphenous vein graft to the right coronary artery and to the obtuse marginal branch. Her activity is limited with her arthritis and she is undergoing physical therapy. She denies any change in her breathing. She has no peripheral edema. No dizziness. No palpitation. No syncope. She is attending her cardiac rehab. With ambulation, she uses her cane and she is scheduled to be followed at [facility]. Her coronary risk factors are remarkable for diabetes, hypertension, hyperlipidemia, peripheral vascular disease and a family history of premature coronary artery disease. MEDICATION: At home include aspirin once a day, Protonix, Singulair, Lopressor 25 mg twice a day and Zestril 2.5 mg daily, insulin Lasix 40 mg daily, Jardiance 25 mg daily, Plavix 75 mg daily, citalopram 40 mg daily, Lipitor 40 mg daily, and vitamin C. REVIEW OF SYSTEMS: RESPIRATORY SYSTEM: She has history of mild chronic dyspnea on exertion, but no obstructive lung disease. GI SYSTEM: No recent GI bleeding, no peptic ulcer disease. SYSTEM: No dysuria or hematuria. NERVOUS SYSTEM: No stroke or seizure. PHYSICAL EXAMINATION: She is a 68-year-old female, alert, oriented, in no apparent distress. Blood pressure running in the 140s to 150s with a heart rate in the 60s. HEAD: Normocephalic. EYES: Sclerae nonicteric. NECK: Good upstroke, no bruit, no jugular venous distension. LUNGS: Clear to auscultation. HEART: Regular rhythm S1, S2. No S3 with a systolic murmur at the base 2/6 no diastolic murmur no rub. ABDOMEN: Soft, nontender, obese. Positive bowel sounds no organomegaly. EXTREMITIES: No edema. LAB DATA: Lab data revealed a BUN and creatinine 22 and 1.01. Potassium 4.5. Troponin less than 0.012. Hemoglobin of 12.3. EKG revealed a sinus mechanism, normal axis, intervals. No acute changes. Chest x-ray shows no evidence of infiltrate. IMPRESSION: 1. Chest and arm discomfort appears to be musculoskeletal in etiology, probably arthritic in origin. 2. History off coronary artery disease, status post coronary artery bypass grafting. 3. Hypertension. 4. Hyperlipidemia. 5. Diabetes mellitus. 6. History of osteoarthritis. 7. History of fibromyalgia. RECOMMENDATION: From the cardiac standpoint, I will continue present therapy. Will obtain serial cardiac enzymes and if there is no evidence of abnormality, then no further cardiac workup will be needed. Depending on her blood pressure, further adjustment of her antihypertensive regimen will be done. I have discussed those finding with the patient and she has full understanding and agreement. Thank you for this consult. We will follow with you. VALERIE / INGRIS: [id number] /
[2018-10-10] MEDS: TIMOLOL 0.5% OPHTH DROPS 5 ML BTL BOTH EYES SCH ×2 (17:08→20:35)
[2018-10-10 17:10] LABS: Glucose,Whole Blood 159 mg/dL (75-99)
[2018-10-10] MEDS: ASCORBIC ACID 500 MG TAB PO SCH (17:12)
[2018-10-10 17:18] LABS: Creatine Kinase 49 U/L (30-135)
[2018-10-10 17:30] LABS: Creatine Kinase MB 0.6 ng/mL (0.0-2.4); Troponin I <0.012 ng/mL (0.000-0.034)
[2018-10-10] MEDS: LISINOPRIL 2.5 MG TAB PO SCH (20:34)
[2018-10-10 20:40] LABS: Glucose,Whole Blood 155 mg/dL (75-99)
[2018-10-10] MEDS ORDERED: MONTELUKAST 10 MG TAB PO SCH (21:00)
[2018-10-10] MEDS ORDERED: LATANOPROST 0.005% OPHTH DROPS 2.5 ML BTL RIGHT EYE SCH (21:00)
[2018-10-10] MEDS ORDERED: INSULIN DETEMIR 100 UNIT/ML 10 ML VIAL SQ SCH (21:00)
[2018-10-11 06:45] LABS: Glucose,Whole Blood 140 mg/dL (75-99)
[2018-10-11 07:13] VITALS: BP 137/67; PULSE 62; TEMP 97.7
--- NOTE | 2018-10-11 07:23 | PN ---
PROGRESS NOTE Mrs. Akers is a 68-year-old female who presented with symptoms of left arm and chest discomfort that occurs when she was lying on her left side. She is feeling better today. Her breathing is stable. She denies any dizziness or palpitation. She has been ambulating without any difficulty. She continues to be at this time on aspirin once a day, Plavix 75 mg daily, Lipitor 40 mg daily, Celexa 40 mg daily, Lasix 40 mg daily, iron, insulin, lisinopril 2.5 mg twice a day, Singulair, metoprolol tartrate 25 mg twice a day and Protonix. PHYSICAL EXAMINATION: Blood pressure 134/60 with a heart rate in the 50s. LUNGS: Clear. HEART: Regular rate and rhythm, S1, S2. No S3. No rub. ABDOMEN: Soft, nontender. EXTREMITIES: No edema. LAB DATA: Revealed troponin less than 0.012 for three samples. IMPRESSION: 1. Chest discomfort atypical for ischemic heart disease, appears to be musculoskeletal in etiology. 2. Status post coronary artery bypass grafting stable. 3. Hypertension. 4. Hyperlipidemia. 5. Diabetes mellitus. 6. History of arthritis. 7. History of fibromyalgia. RECOMMENDATION: From the cardiac standpoint, I will increase her level of activity. She should be able to be discharged home today and followed as an outpatient as scheduled. MMODL / IJN: [id number] /
--- NOTE | 2018-10-11 08:18 | P.DS ---
Providers Date of admission: 10/10/18 07:00 The patient is a 68-year-old female who has known coronary artery disease. Patient underwent coronary artery bypass back in December of this year. Consisting of bypass grafting with CUMMINGS to LAD, saphenous vein graft to the right coronary and to the obtuse marginal. The patient presented to with chest pain to the emergency room and was placed on sedation. Patient was seen by her data management engineer Dr. Juarez's refer to his notes. Patient was monitored uneventfully. EKG did not show any acute changes. Cardiac enzymes were also unremarkable with normal troponin and CK values. Chest x-ray reveals no acute changes. Other laboratory values revealed normal CBC with a white count of 6.6 and hemoglobin 12.3 and a platelet count of 277. INR was 0.9. Electrolytes were unremarkable. BUN was 22 with a creatinine of 1.01 giving her GFR of 57. Blood sugar was in the mid 100 range. Liver tests were unremarkable. Albumin 3.8. Patient's pain dissipated and ambulated without further discomfort. At this time patient is to be discharged and maintained on her home medications. Timolol 0.5% one drop in both eyes twice a day MiraLAX 17 g daily Protonix 40 mg at breakfast Multiple vitamin daily Singular 10 mg at at bedtime Metoprolol tartrate 25 mg twice a day Lisinopril 2.5 daily Xalatan 1 drop in the right eye at at bedtime 0.005% Apidra for coverage of blood sugar Also 16 units before meals. Levemir 18 units at at bedtime Patient takes M[place]alla 5-325 as needed for pain/chronic pain Lasix 40 mg daily Ferrous sulfate 325 twice a day Vitamin D2 50,000 units every Tuesday Star's 25 mg daily Plavix 75 mg daily Citalopram 40 mg daily Atorvastatin 40 mg daily Aspirin 81 mg daily Vitamin C 500 mg twice a day with food. Discharge diagnosis 1. Musculoskeletal pain with costochondritis causing left chest pain noncardiac in origin. 2. History of coronary artery disease and previous bypass surgery as described above. 3. Fibromyalgia 4. Insulin-dependent diabetes 5. Obesity 6. History of previous non-STEMI myocardial infarction 7. Hyperlipidemia 8. Diffuse osteoarthritis 9. Gastroesophageal reflux 10. Hypertension 11. Diabetic retinopathy 12. Diabetic neuropathy 13. 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 Patient is scheduled to follow-up with her data management engineer. Patient will follow-up with myself over the next few days. She is to call if any questions concerns or problems should arise. Attending physician: Tim Osborn Consults: 10/10/18 07:00 Consult Physician Routine Consulting Provider: Liang Núñez Consult Reason/Comments: Chest pain Do you want consulting provider notified?: Yes Primary care physician: Tim Osborn Patient Condition at Discharge: Stable Plan - Discharge Summary Discharge Rx Participant: No New Discharge Prescriptions: No Action RX: Latanoprost Ophth [Xalatan 0.005%] 1 drop RIGHT EYE HS RX: Ergocalciferol [Vitamin D2 (DRISDOL)] 50,000 unit PO SA RX: Timolol 0.5% Ophth Soln [Timoptic 0.5% Ophth Soln] 1 drop BOTH EYES BID RX: Ascorbic Acid [Vitamin C] 500 mg PO BID-W/MEALS tab RX: Aspirin 81 mg PO DAILY chew RX: Atorvastatin [Lipitor] 40 mg PO DAILY tab RX: Citalopram Hydrobromide [CeleXA] 40 mg PO DAILY tab RX: Clopidogrel [Plavix] 75 mg PO DAILY tab RX: Ferrous Sulfate [Iron (65 MG Elemental)] 325 mg PO BID-W/MEALS tab RX: Furosemide [Lasix] 40 mg PO DAILY tab RX: Metoprolol Tartrate [Lopressor] 25 mg PO BID tab RX: Montelukast [Singulair] 10 mg PO HS tab RX: Pantoprazole [Protonix] 40 mg PO AC-BRKFST tablet. Insulin Glulisine [Apidra] 16 unit SQ AC-TID Polyethylene Glycol 3350 [Miralax] 17 gm PO DAILY RX: Multivitamins, Thera [Multivitamin (formulary)] 1 tab PO DAILY RX: Insulin Detemir [Levemir] 18 unit SQ HS RX: HYDROcodone/APAP 5-325MG [Mccalla 5-325] 2 tab PO Q4HR PRN PRN Reason: Severe Pain Lisinopril [Zestril] 2.5 mg PO DAILY Empagliflozin [Jardiance] 25 mg PO DAILY Clopidogrel [Plavix] 75 mg PO DAILY Insulin Glulisine [Apidra] See Protocol SQ AC-TID PRN MDD IF SUGAR IS OVER 180 PRN Reason: Blood Sugar - High Discharge Medication List RX: Ergocalciferol [Vitamin D2 (DRISDOL)] 50,000 unit PO SA 09/11/14 [History] RX: Latanoprost Ophth [Xalatan 0.005%] 1 drop RIGHT EYE HS 09/11/14 [History] RX: Timolol 0.5% Ophth Soln [Timoptic 0.5% Ophth Soln] 1 drop BOTH EYES BID [History] RX: Ascorbic Acid [Vitamin C] 500 mg PO BID-W/MEALS tab 02/03/18 [Rx] RX: Aspirin 81 mg PO DAILY chew 02/03/18 [Rx] RX: Atorvastatin [Lipitor] 40 mg PO DAILY tab 02/03/18 [Rx] RX: Citalopram Hydrobromide [CeleXA] 40 mg PO DAILY tab 02/03/18 [Rx] RX: Clopidogrel [Plavix] 75 mg PO DAILY tab 02/03/18 [Rx] RX: Ferrous Sulfate [Iron (65 MG Elemental)] 325 mg PO BID-W/MEALS tab [Rx] RX: Furosemide [Lasix] 40 mg PO DAILY tab 02/03/18 [Rx] RX: Metoprolol Tartrate [Lopressor] 25 mg PO BID tab 02/03/18 [Rx] RX: Montelukast [Singulair] 10 mg PO HS tab 02/03/18 [Rx] RX: Pantoprazole [Protonix] 40 mg PO AC-BRKFST tablet.dr 02/03/18 [Rx] Insulin Glulisine [Apidra] 16 unit SQ AC-TID 07/19/18 [History] Polyethylene Glycol 3350 [Miralax] 17 gm PO DAILY 07/19/18 [History] RX: HYDROcodone/APAP 5-325MG [[place] 5-325] 2 tab PO Q4HR PRN 07/19/18 [History] RX: Insulin Detemir [Levemir] 18 unit SQ HS 07/19/18 [History] RX: Multivitamins, Thera [Multivitamin (formulary)] 1 tab PO DAILY 07/19/18 [ History] Clopidogrel [Plavix] 75 mg PO DAILY 10/10/18 [History] Empagliflozin [Jardiance] 25 mg PO DAILY 10/10/18 [History] Insulin Glulisine [Apidra] See Protocol SQ AC-TID PRN MDD IF SUGAR IS OVER 180 10/10/18 [History] Lisinopril [Zestril] 2.5 mg PO DAILY 10/10/18 [History] Follow up Appointment(s)/Referral(s): Tim Osborn MD [Primary Care Provider] - 1-2 days
[2018-10-11] MEDS: MULTIVITAMINS, THERA 1 EACH TAB PO SCH (08:23)
[2018-10-11] MEDS: CLOPIDOGREL 75 MG TAB PO SCH (08:23)
[2018-10-11] MEDS: FERROUS SULFATE 325 MG TAB PO SCH (08:23)
[2018-10-11] MEDS: LISINOPRIL 2.5 MG TAB PO SCH (08:23)
[2018-10-11] MEDS: FUROSEMIDE 40 MG TAB PO SCH (08:23)
[2018-10-11] MEDS: PANTOPRAZOLE 40 MG TABLET PO SCH (08:23)
[2018-10-11] MEDS: ASCORBIC ACID 500 MG TAB PO SCH (08:23)
[2018-10-11] MEDS: CITALOPRAM HYDROBROMIDE 20 MG TAB PO SCH (08:24)
[2018-10-11] MEDS: METOPROLOL TARTRATE 25 MG TAB PO SCH (08:24)
[2018-10-11] MEDS: POLYETHYLENE GLYCOL 3350 17 GM POWD.PACK PO SCH (08:24)
[2018-10-11] MEDS: ATORVASTATIN 40 MG TAB PO SCH (08:24)
[2018-10-11] MEDS: INSULIN ASPART 100 UNIT/ML 1 ML 10 ML VIAL SQ SCH (08:29)
[2018-10-11] MEDS: NON-FORMULARY DRUG (Empagliflozin [Jardiance] 25 MG) PO SCH (08:30)
[2018-10-11] MEDS: TIMOLOL 0.5% OPHTH DROPS 5 ML BTL BOTH EYES SCH (08:31)
[2018-10-11] MEDS ORDERED: ASPIRIN 81 MG PO SCH (09:00)
[2018-10-11 15:59] LABS: Hemoglobin A1C 7.2 % (4.0-6.0)
[2018-10-14] MEDS ORDERED: ERGOCALCIFEROL 50,000 UNIT CAP PO SCH (12:00)
== END 2018-10-11 09:38 | disposition home or self-care (01) ==
LOC: EC 03:38 → 1SOBS 07:00
PROVIDERS: ADMIT Internal Medicine; ATTEND Internal Medicine
DX: R07.89 Other chest pain (principal); M94.0 Chondrocostal junction syndrome [Tietze]; M79.602 Pain in left arm; I25.10 Atherosclerotic heart disease of native coronary artery without angina pectoris; Z95.1 Presence of aortocoronary bypass graft; M79.7 Fibromyalgia; I25.2 Old myocardial infarction; E78.5 Hyperlipidemia, unspecified; M19.90 Unspecified osteoarthritis, unspecified site; K21.9 Gastro-esophageal reflux disease without esophagitis; I10 Essential (primary) hypertension; G89.29 Other chronic pain; E11.42 Type 2 diabetes mellitus with diabetic polyneuropathy; Z79.4 Long term (current) use of insulin; E11.319 Type 2 diabetes mellitus with unspecified diabetic retinopathy without macular edema; M47.816 Spondylosis without myelopathy or radiculopathy, lumbar region; R21 Rash and other nonspecific skin eruption; H40.9 Unspecified glaucoma; Z98.84 Bariatric surgery status; F32.9 Major depressive disorder, single episode, unspecified; I73.9 Peripheral vascular disease, unspecified; M54.30 Sciatica, unspecified side; Z87.891 Personal history of nicotine dependence; Z90.49 Acquired absence of other specified parts of digestive tract; E66.9 Obesity, unspecified; Z68.41 Body mass index [BMI] 40.0-44.9, adult; Z79.02 Long term (current) use of antithrombotics/antiplatelets; Z79.899 Other long term (current) drug therapy; Z79.82 Long term (current) use of aspirin; Z80.9 Family history of malignant neoplasm, unspecified; Z91.010 Allergy to peanuts; Z88.0 Allergy status to penicillin; Z88.8 Allergy status to other drugs, medicaments and biological substances
CPT/HCPCS: 99285; 36415; 93005; 80053; 82550; 82553; 83735; 84484; 85025; 85610; 85730; 83036; 71046; G0378 ×2

== ENCOUNTER → 2018-12-05 | Outpatient (CLI) | payer OTHER, MEDICARE ==
[2018-11-29 12:22] VITALS: BMI 40.7
[2018-12-05 13:25] VITALS: BP 179/85; PULSE 88; RESP 18
--- NOTE | 2018-12-05 21:16 | P.PAINCN ---
History of Present Illness - Reason for Consult Consult date: 12/05/18 - History of Present Illness This is a 68 years old female with a chronic history of low back pain, pain started more than 5 years ago, he denies any initiating event, and she reported that the pain intensity increased over time, her pain is constant and increases with any activity, mostly localized in the low back area, is not radiated to the lower extremity, patient reported that she has numbness and tingling sensation radiating from the feet towards the lower extremity, she is diagnosed with peripheral neuropathy,/diabetic neuropathic, also patient complaining of dull aching pain in the upper back area and bilateral hip and around the knee bilaterally, she is diagnosed with fibromyalgia, she was not treated with Neurontin or Lyrica because she is concerned about the side effect of these medications, and currently she is on [place] 10/325 2 tablets twice a day, patient reported the current pain medication helping her fibromyalgia pain and peripheral neuropathic, but is not helping her low back pain, she is ambulating using cane, she denies any fever or night sweats, no change in the bowel movement or urination Past Medical History Past Medical History: Coronary Artery Disease (CAD), Chest Pain / Angina, Diabetes Mellitus, Eye Disorder, Fibromyalgia, GERD/Reflux, Hyperlipidemia, Hypertension, Myocardial Infarction (NM), Osteoarthritis (OA), Skin Disorder, Vascular Disorder Additional Past Medical History / Comment(s): MIs x2- December 2017 and in 2012, bilateral carotid artery disease, nephritis and had to recieve hemodialysis twice-kidneys normal since, IDDM type II, bilateral eye glaucoma/retinopathy/ retinal bleeds bilaterally with surgery, neuropathy bilateral hands/feet, diffuse arthritis, DDD, chronic low back pain with bilateral sciatica, recurrent buttock ulcerations-has one now per pt, bronchitis, sinus problems, UTIs, past migraines, currently using a willy 14 day sensor for blood sugar levels, bladder leakage, uses cane for mobility Last Myocardial Infarction Date:: 12/2017 History of Any Multi-Drug Resistant Organisms: None Reported Past Surgical History: Bariatric Surgery, Cholecystectomy, Coronary Bypass/CABG , Heart Catheterization, Tubal Ligation Additional Past Surgical History / Comment(s): 12/2017 CABG 3 vessel, lap banding , bilateral knee scopes, bilateral carpal tunnel releases, R eye has metal implant per pt d/t eyelid ligament problem, bilateral laser eye surgery for retinal bleeds, bilateral cataract removals/lens implants, bilateral hand trigger finger surgeries, EGD, colonoscopy, sinus surgery, pilonidal cystectomy , R temporal bx and mole removal (benign), R trunk benign mole removal. Past Anesthesia/Blood Transfusion Reactions: No Reported Reaction Additional Past Anesthesia/Blood Transfusion Reaction / Comm: Pt has received blood without reaction. Past Psychological History: No Psychological Hx Reported Additional Psychological History / Comment(s): claustrophobic. past situational depression- none now Smoking Status: Former smoker Past Alcohol Use History: None Reported Additional Past Alcohol Use History / Comment(s): Pt started smoking in 1966 and quit in 1988. She was a light smoker. Past Drug Use History: None Reported - Past Family History Father Family Medical History: Cancer Additional Family Medical History / Comment(s): Pt does not recall type of cancer father had but it caused him to have an arm amputation. Mother Family Medical History: Diabetes Mellitus, Myocardial Infarction (NM) Additional Family Medical History / Comment(s): Mother of a NM at the age of 58yrs. Medications and Allergies Home Medications Medication Instructions Recorded Confirmed Type Ergocalciferol [Vitamin D2 50,000 unit PO SA 09/11/14 12/05/18 History (DRISDOL)] Latanoprost Ophth [Xalatan 0.005%] 1 drop RIGHT EYE HS 09/11/14 12/05/18 History Timolol 0.5% Ophth Soln [Timoptic 1 drop BOTH EYES BID 01/22/18 12/05/18 History 0.5% Ophth Soln] Aspirin 81 mg PO DAILY chew 02/03/18 12/05/18 Rx Citalopram Hydrobromide [CeleXA] 40 mg PO DAILY tab 02/03/18 12/05/18 Rx Clopidogrel [Plavix] 75 mg PO DAILY tab 02/03/18 12/05/18 Rx Insulin Glulisine [Apidra] 16 unit SQ AC-TID 07/19/18 12/05/18 History Multivitamins, Thera [Multivitamin 1 tab PO DAILY 07/19/18 12/05/18 History (formulary)] Insulin Glulisine [Apidra] See Protocol SQ AC-TID PRN MDD IF 10/10/18 12/05/18 History SUGAR IS OVER 180 Atorvastatin [Lipitor] 80 mg PO DAILY 11/29/18 12/05/18 History Ferrous Sulfate [Iron (65 MG 325 mg PO DAILY 11/29/18 12/05/18 History Elemental)] Fexofenadine HCl [Citlaly Allergy] 180 mg PO DAILY 11/29/18 12/05/18 History Fluticasone Nasal Lejunior [Flonase 1 spray EA NOSTRIL DAILY 11/29/18 12/05/18 History Nasal Lejunior] Furosemide [Lasix] 20 mg PO BID 11/29/18 12/05/18 History HYDROcodone/APAP 10-325MG [[place] 2 tab PO BID 11/29/18 12/05/18 History 10-325] Hydrocortisone [Hydrocortisone 1 applic TOPICAL DAILY PRN 11/29/18 12/05/18 History 0.05%] Insulin Detemir [Levemir Flextouch] 18 units SQ HS 11/29/18 12/05/18 History Isosorbide Mononitrate ER [Imdur] 60 mg PO DAILY 11/29/18 12/05/18 History Metoprolol Tartrate [Lopressor] 25 mg PO BID 11/29/18 12/05/18 History Nitroglycerin Sl Tabs [Nitrostat] 0.4 mg SUBLINGUAL Q5M PRN 11/29/18 12/05/18 History Pantoprazole [Protonix] 40 mg PO AC-BRKFST PRN 11/29/18 12/05/18 History Polyethylene Glycol 3350 [Miralax] 17 gm PO DAILY 11/29/18 12/05/18 History metFORMIN HCL 500 mg PO DAILY 11/29/18 12/05/18 History Allergies Allergy/AdvReac Type Severity Reaction Status Date / Time diclofenac Allergy Unknown Verified 12/05/18 13:10 peanut Allergy PER Verified 12/05/18 13:10 ALLERGY TEST Penicillins Allergy ITCHING Verified 12/05/18 13:10 AND RED SKIN Physical Exam Vitals: Vital Signs Pulse Resp BP Pulse Ox 12/05/18 13:14 88 18 179/85 98 Social history : not smoker , NO ETOH , NO Illegal drugs use . Review of Systems : 1- Constitutional : no chills , no fever , no night sweats , 2- Ears : no ear discharge , no change in hearing 3-Nose, Mouth ,Throat ; no bleeding gums, no sore throat , no epistaxis , 4-Cardiovascular : History of coronary artery disease 5-Respiratory : Denies cough , no dyspnea , no hemoptysis 6-Gastrointestinal :, no change in bowel habits , no coffee- ground emesis . 7-Genitourinary : No hematuria , no discharge , no incontinence, 8-Musculoskeletal :gait dysfunction , report low back pain, upper back, hip pain and knee pain , 9- Neurological : no ataxia , no tremor , no sezure , 10-Psychatric , no suicidal ideation no hallucination 11- Endocrine : diabetes mellitus, morbid obesity 12-Hematologic : On Plavix 13-Allergic / immunology : no angioedema , no wheezing ,no allergic rhinitis 14-Integumentary : no brttle nails , no change hair / nails , no foot/leg ulcers . Physical Examinations : 1-Constitutional : Cooperative , not in acute distress . 2-HEENT : nech ; supple , no Lymphadenopathy , no Thyromegaly , :eyes , no icterus, no photophobia . 3- Gastrointestinal: abdomen soft , morbidly obese. 4- Genitourinary : Defferred . 5-Integumentary : No cellulitis , no cyanotic . 6- neurologic : Cranial nerve II to XII intact , no focal neurological deffecit 7-psychatric : alert , oriented X 3 , appropriate affect , intact judgment and insight . 8-Lymphatic : no Lymphadenopathy. 9- musculoskeltal: abnormal gait Multiple trigger points identified in the lower cervical upper thoracic area Painful points around the knee bilaterally painful points around the hip joints bilaterally Tenderness over the trochanteric bursa Lumber spine moter stegnth lower extremities ,thigh and legs 5/5 Right side , 5/5 Left side deep tendon reflexes : normal Knee Jerk , normal ankle Jerk positive lumber facet Loading Test Range of motion of the lumbar spine Flexion 60 degrees, extension 30 degrees strait leg raising test , positive at degree Fabere test positive RT and positive LT . Severe tenderness over the sacroiliac joint on the right side, and on the left side Gaenslen test= positive bilaterally Seated flexion test= positive bilaterally Dysesthesia at the distal part of the lower extremity bilaterally. Results Comments: Computed tomography scan of the lumbar spine= done August 2018, at the [facility], multilevel lumbar degenerative disc disease and multilevel lumbar facet degeneration Assessment and Plan Plan: Assessment and plan= chronic severe low back pain secondary to lumbar spondylosis with lumbar facet arthropathy, lumbar degenerative disc disease Fibromyalgia, Peripheral neuropathy . CAD, HTN ,Hyperlepedemia IDDM Currently patient reported that most of her pain syndrome the low back area, clinically most of the pain is coming from the facetogenic component, patient will be good candidate to have diagnostic medial branch block lumbar area as L34/L4-5 /L5-S1 x2 She had a good result and we will proceed with the radiofrequency ablation. Patient does not want to be started on Neurontin or Lyrica she is concerned about the side effect. Medications currently on [place] 10/325 2 tablets twice a day , getting prescriptions from her primary care and she had no side effects from the medication, continue to get her medication prescription refills from her primary care Time with Patient: Greater than 30 PQRS Measure Charge Sheet Measure #130: Documentation of Current Meds in Medical Chart: Patient's medications documented in chart Measure #226: Tobacco Use: Screen & Cessation Intervention: Pt not a tobacco user Measure #111: Pneumonia Vaccination: Pneumococcal vaccine administered or previously received Measure #47: Advance Care Plan: Advance care planning discussed & documented, pt chose/unable to give Measure #412: Opioid Treatment Agreement: No documentation of signed opioid treatment agreement Measure #408: Opioid Therapy Follow-up Evaluation: Patient had NO f/u eval minimum every 3 months during opioid therapy Measure #317: Preventitive Care & Scrn High Bld Press & F/U: Pre-hypertensive or hypertensive BP documented, pt will f/u with PCP Measure #128: Body Mass Index (BMI) Screening & Follow-up: BMI documented ABOVE normal parameters - f/u documented Measure #131: Pain Assessment & Follow-up: Pain positive & plan documented, Follow-up scheduled Measure #431: Unhealthy Alcohol Use Preventative Care & Scrn: Patient not identified as an unhealthy alcohol user PQRS Narrative: Smoking Status Former smoker Do You Want the Pneumonia Vaccine Up to Date Vaccine AT THIS TIME? Blood Pressure 179/85 Pain Intensity [Bilateral 8 Lower Back] Scale Used Numeric (1 - 10) Hx Alcohol Use (MH) No Home Medications: Ambulatory Orders Ergocalciferol [Vitamin D2 (DRISDOL)] 50,000 unit PO SA 09/11/14 Latanoprost Ophth [Xalatan 0.005%] 1 drop RIGHT EYE HS 09/11/14 Timolol 0.5% Ophth Soln [Timoptic 0.5% Ophth Soln] 1 drop BOTH EYES BID Aspirin 81 mg PO DAILY chew 02/03/18 Citalopram Hydrobromide [CeleXA] 40 mg PO DAILY tab 02/03/18 Clopidogrel [Plavix] 75 mg PO DAILY tab 02/03/18 Insulin Glulisine [Apidra] 16 unit SQ AC-TID 07/19/18 Multivitamins, Thera [Multivitamin (formulary)] 1 tab PO DAILY 07/19/18 Insulin Glulisine [Apidra] See Protocol SQ AC-TID PRN MDD IF SUGAR IS OVER 180 10/10/18 Atorvastatin [Lipitor] 80 mg PO DAILY 11/29/18 Ferrous Sulfate [Iron (65 MG Elemental)] 325 mg PO DAILY 11/29/18 Fexofenadine HCl [Citlaly Allergy] 180 mg PO DAILY 11/29/18 Fluticasone Nasal Lejunior [Flonase Nasal Lejunior] 1 spray EA NOSTRIL DAILY 11/29/18 Furosemide [Lasix] 20 mg PO BID 11/29/18 HYDROcodone/APAP 10-325MG [[place] 10-325] 2 tab PO BID 11/29/18 Hydrocortisone [Hydrocortisone 0.05%] 1 applic TOPICAL DAILY PRN 11/29/18 Insulin Detemir [Levemir Flextouch] 18 units SQ HS 11/29/18 Isosorbide Mononitrate ER [Imdur] 60 mg PO DAILY 11/29/18 Metoprolol Tartrate [Lopressor] 25 mg PO BID 11/29/18 Nitroglycerin Sl Tabs [Nitrostat] 0.4 mg SUBLINGUAL Q5M PRN 11/29/18 Pantoprazole [Protonix] 40 mg PO AC-BRKFST PRN 11/29/18 Polyethylene Glycol 3350 [Miralax] 17 gm PO DAILY 11/29/18 metFORMIN HCL 500 mg PO DAILY 11/29/18
== END ==
LOC: PNWHC3 11:59
PROVIDERS: ATTEND Specialist
DX: G89.29 Other chronic pain (principal); M47.816 Spondylosis without myelopathy or radiculopathy, lumbar region; M46.96 Unspecified inflammatory spondylopathy, lumbar region; M51.36 Other intervertebral disc degeneration, lumbar region; M79.7 Fibromyalgia; G62.9 Polyneuropathy, unspecified; I25.10 Atherosclerotic heart disease of native coronary artery without angina pectoris; I10 Essential (primary) hypertension; E78.5 Hyperlipidemia, unspecified; E11.9 Type 2 diabetes mellitus without complications; Z87.891 Personal history of nicotine dependence; Z79.899 Other long term (current) drug therapy; Z79.84 Long term (current) use of oral hypoglycemic drugs; Z79.4 Long term (current) use of insulin; Z79.891 Long term (current) use of opiate analgesic; Z79.02 Long term (current) use of antithrombotics/antiplatelets
CPT/HCPCS: 99211

== ENCOUNTER → 2018-12-09 | Outpatient (CLI) | payer OTHER, MEDICARE ==
[2018-12-09 16:44] LABS: Calcium 9.2 mg/dL (8.7-10.3); Potassium 4.5 mmol/L (3.5-5.5)
== END | disposition home or self-care (01) ==
LOC: LABWHC1 08:08
PROVIDERS: ATTEND Nurse Practitioner Adult Health
DX: I10 Essential (primary) hypertension (principal); R60.0 Localized edema
CPT/HCPCS: 36415; 80048

== ENCOUNTER 2018-12-14 05:48 | Day surgery (SDC) | payer OTHER, MEDICARE ==
[2018-12-12 10:56] VITALS: BMI 41.6
[~2018-12-14 05:48] MED LIST: SODIUM CHLORIDE 0.9% 500 ML 500 ML IV SCH
[2018-12-14] MEDS ORDERED: LIDOCAINE 1% 20 ML VIAL (10MG/ML) FOR IV START INTRADERMA ONE (06:45)
[2018-12-14] MEDS ORDERED: LACTATED RINGERS 1,000 ML IV ONE (06:45)
[2018-12-14 06:51] LABS: Glucose,Whole Blood 219 mg/dL (75-99)
[2018-12-14 06:53] VITALS: TEMP 97.8
--- NOTE | 2018-12-14 07:31 | P.PCN ---
Date of Procedure: 12/14/18 Surgeon: Nae Sotelo Pathology: none sent Condition: stable Disposition: PACU Description of Procedure: PREOPERATIVE DIAGNOSIS : 1- Lumbar spondylosis with Facet Arthropathy without myelopathy . 2- Lumber degenerative disc disease POSTOPERATIVE DIAGNOSIS: 1- Lumbar spondylosis with Facet Arthropathy without myelopathy . 2- Lumber degenerative disc disease PROCEDURE: Diagnostic bilateral L3 -4 , L4 -5 , and L5-S1 medial branch block under fluoroscopy ANESTHESIA: Local with 1% lidocaine; IV moderate conscious sedation with Versed 2 mg . EBL: Negligible COMPLICATION: None. PROCEDURE INDICATION: Chronic low back pain secondary to Facet arthropathy unresponsive to conservative treatment. PROCEDURE DESCRIPTION: the patient was seen and identified in the preop holding area , risks and benefits and possible complications of the procedure and alternatives were discussed with the patient, and the patient agreed to proceed with the procedure and signed the consent. IV was started and vital signs monitored during the procedure and fluoroscopy was used to maximize the benefit and accuracy of the needle placement, sedation was given to decrease patient anxiety, patient was taken to the procedure room and placed in prone position vital signs monitored. The patient was brought into the procedure room and placed in prone position. Skin was prepped with Chloraprep and draped in a sterile manner. Lidocaine 1 % was used to numb the skin up at the target points that were chosen as follows : at the L5-S1 level which corresponds to the dorsal ramus of L5 the target points were at the superior medial aspect of the sacral ala on each side of the spine on the AP view of fluoroscopy, and for theL2, L3 and L4 medial branches the target points were the connection between the transverse process and the superior to go process of L3, L4 and L5 respectively on the oblique views of fluoroscopy. I used 25-gauge 5 inch Quincke spinal needles for this procedure and after contacting bone at the target points mentioned above I injected 1 mL of Marcaine 0.5% PF . Patient tolerated procedure well. At the end of the procedure the needles removed and a bandage applied after the skin was cleaned the cleaning solution. patient was then taken to the recovery room in stable condition and monitored in the recovery room for 20-30 minutes and discharged home in stable condition after discharge criteria met . No steroids were used for this procedure. The patient is diabetic and on Plavix.
[2018-12-14] MEDS ORDERED: IV FLUID CONTINUATION 1,000 ML IV ONE (07:38)
[2018-12-14 07:43] VITALS: RESP 18
[2018-12-14 08:00] VITALS: BP 144/72; PULSE 62
--- NOTE | 2018-12-14 13:13 | FL ---
Fluoroscopy HISTORY: Pain 8 seconds fluoroscopy time supplied to the referring clinician. 3 intraoperative C-arm images docume nt the procedure. See dictated report from anesthesia.
== END 2018-12-14 08:19 | disposition home or self-care (01) ==
LOC: ORPAIN 05:48
PROVIDERS: ATTEND Anesthesiology
DX: G89.29 Other chronic pain (principal); M47.816 Spondylosis without myelopathy or radiculopathy, lumbar region; M51.36 Other intervertebral disc degeneration, lumbar region; I25.10 Atherosclerotic heart disease of native coronary artery without angina pectoris; Z95.1 Presence of aortocoronary bypass graft; E11.9 Type 2 diabetes mellitus without complications; E66.9 Obesity, unspecified; Z68.41 Body mass index [BMI] 40.0-44.9, adult; Z79.01 Long term (current) use of anticoagulants; Z88.0 Allergy status to penicillin; Z91.010 Allergy to peanuts
CPT/HCPCS: 64493; 64494; 64495; J2250; 99152

== ENCOUNTER 2018-12-28 06:16 | Day surgery (SDC) | payer OTHER, MEDICARE ==
[2018-12-26 09:30] VITALS: BMI 41.0
[2018-12-28 07:10] VITALS: TEMP 97.4
[2018-12-28 07:21] LABS: Glucose,Whole Blood 125 mg/dL (75-99)
[2018-12-28] MEDS ORDERED: LIDOCAINE 1% 20 ML VIAL (10MG/ML) FOR IV START INTRADERMA ONE (07:33)
[2018-12-28] MEDS ORDERED: LACTATED RINGERS 1,000 ML IV ONE (07:33)
--- NOTE | 2018-12-28 07:57 | P.PCN ---
Date of Procedure: 12/28/18 Description of Procedure: Surgeon: Nae Sotelo Pathology: none sent Condition: stable Disposition: PACU Description of Procedure: PREOPERATIVE DIAGNOSIS : 1- Lumbar spondylosis with Facet Arthropathy without myelopathy . 2- Lumber degenerative disc disease POSTOPERATIVE DIAGNOSIS: 1- Lumbar spondylosis with Facet Arthropathy without myelopathy . 2- Lumber degenerative disc disease PROCEDURE: Diagnostic bilateral L4 -5 , and L5-S1 medial branch block under fluoroscopy ANESTHESIA: Local with 1% lidocaine; IV moderate conscious sedation with Versed 2 mg . EBL: Negligible COMPLICATION: None. PROCEDURE INDICATION: Chronic low back pain secondary to Facet arthropathy unresponsive to conservative treatment. PROCEDURE DESCRIPTION: the patient was seen and identified in the preop holding area , risks and benefits and possible complications of the procedure and alternatives were discussed with the patient, and the patient agreed to proceed with the procedure and signed the consent. IV was started and vital signs monitored during the procedure and fluoroscopy was used to maximize the benefit and accuracy of the needle placement, sedation was given to decrease patient anxiety, patient was taken to the procedure room and placed in prone position vital signs monitored. The patient was brought into the procedure room and placed in prone position. Skin was prepped with Chloraprep and draped in a sterile manner. Lidocaine 1 % was used to numb the skin up at the target points that were chosen as follows : at the L5-S1 level which corresponds to the dorsal ramus of L5 the target points were at the superior medial aspect of the sacral ala on each side of the spine on the AP view of fluoroscopy, and for the L3 and L4 medial branches the target points were the connection between the transverse process and the superior to go process of L4 and L5 respectively on the oblique views of fluoroscopy. I used 22-gauge 3.5 inch Quincke spinal needles for this procedure and after contacting bone at the target points mentioned above I injected 1 mL of Marcaine 0.5% PF . Patient tolerated procedure well. At the end of the procedure the needles removed and a bandage applied after the skin was cleaned the cleaning solution. patient was then taken to the recovery room in stable condition and monitored in the recovery room for 20-30 minutes and discharged home in stable condition after discharge criteria met . No steroids were used for this procedure. The patient is diabetic and on Plavix.
[2018-12-28] MEDS ORDERED: IV FLUID CONTINUATION 850 ML IV ONE (08:06)
[2018-12-28 08:12] VITALS: RESP 18
[2018-12-28 08:26] VITALS: BP 112/55; PULSE 55
--- NOTE | 2018-12-28 11:46 | FL ---
EXAMINATION TYPE: FL guided pain mgmt statistic DATE OF EXAM: 12/28/2018 HISTORY: Flouroscopy time 10 seconds of fluoroscopy provided. IMPRESSION: 1. Fluoroscopy time.
== END 2018-12-28 08:34 | disposition home or self-care (01) ==
LOC: ORPAIN 06:16
PROVIDERS: ATTEND Anesthesiology
DX: G89.29 Other chronic pain (principal); M47.816 Spondylosis without myelopathy or radiculopathy, lumbar region; M51.36 Other intervertebral disc degeneration, lumbar region; M79.7 Fibromyalgia; I25.10 Atherosclerotic heart disease of native coronary artery without angina pectoris; E11.42 Type 2 diabetes mellitus with diabetic polyneuropathy; E11.319 Type 2 diabetes mellitus with unspecified diabetic retinopathy without macular edema; E11.39 Type 2 diabetes mellitus with other diabetic ophthalmic complication; H30.90 Unspecified chorioretinal inflammation, unspecified eye; H42 Glaucoma in diseases classified elsewhere; K21.9 Gastro-esophageal reflux disease without esophagitis; E78.5 Hyperlipidemia, unspecified; I10 Essential (primary) hypertension; I25.2 Old myocardial infarction; M19.90 Unspecified osteoarthritis, unspecified site; Z82.49 Family history of ischemic heart disease and other diseases of the circulatory system; Z83.3 Family history of diabetes mellitus; Z98.84 Bariatric surgery status; Z95.1 Presence of aortocoronary bypass graft; Z87.891 Personal history of nicotine dependence; Z79.891 Long term (current) use of opiate analgesic; Z79.02 Long term (current) use of antithrombotics/antiplatelets; Z79.82 Long term (current) use of aspirin; Z79.4 Long term (current) use of insulin; Z79.899 Other long term (current) drug therapy; Z88.0 Allergy status to penicillin; Z88.6 Allergy status to analgesic agent; Z91.010 Allergy to peanuts
CPT/HCPCS: 64493; 64494; J2250

== ENCOUNTER → 2019-01-15 | Outpatient (CLI) | payer OTHER, MEDICARE ==
[2019-01-15 11:12] VITALS: BP 145/65; RESP 16
--- NOTE | 2019-01-15 11:18 | P.PN ---
Progress Note - Text Progress Note Date: 01/15/19 - History of Present Illness This is a 68 years old female with a chronic history of low back pain. She status post bilateral lumbar medial branch blocks 2. She had excellent relief greater than 70%. She noticed improved ADLs as well as less overall pain for 2 days. Discussed lumbar radio frequency ablation, the risks and benefits. Patient wishes to proceed to being prescribed [place] from an outside clinic. She tried and failed Lyrica and Neurontin for her fibromyalgia, she is on antidepressant prescribed by mental health provider. 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 with surgery, neuropathy bilateral hands/feet, diffuse arthritis, DDD, chronic low back pain with bilateral sciatica, recurrent buttock ulcerations-has one now per pt, bronchitis, sinus problems, UTIs, past migraines, currently using a willy 14 day sensor for blood sugar levels, bladder leakage, uses cane for mobility Last Myocardial Infarction Date:: 12/2017 History of Any Multi-Drug Resistant Organisms: None Reported Past Surgical History: Bariatric Surgery, Cholecystectomy, Coronary Bypass/CABG, Heart Catheterization, Tubal Ligation Additional Past Surgical History / Comment(s): 12/2017 CABG 3 vessel, lap banding, bilateral knee scopes, bilateral carpal tunnel releases, R eye has metal implant per pt d/t eyelid ligament problem, bilateral laser eye surgery for retinal bleeds, bilateral cataract removals/lens implants, bilateral hand trigger finger surgeries, EGD, colonoscopy, sinus surgery, pilonidal cystectomy, R temporal bx and mole removal (benign), R trunk benign mole removal. Past Anesthesia/Blood Transfusion Reactions: No Reported Reaction Additional Past Anesthesia/Blood Transfusion Reaction / Comm: Pt has received blood without reaction. Past Psychological History: No Psychological Hx Reported Additional Psychological History / Comment(s): claustrophobic. past situational depression- none now Smoking Status: Former smoker Past Alcohol Use History: None Reported Additional Past Alcohol Use History / Comment(s): Pt started smoking in 1966 and quit in 1988. She was a light smoker. Past Drug Use History: None Reported - Past Family History Father Family Medical History: Cancer Additional Family Medical History / Comment(s): Pt does not recall type of cancer father had but it caused him to have an arm amputation. Mother Family Medical History: Diabetes Mellitus, Myocardial Infarction (AL) Additional Family Medical History / Comment(s): Mother of a AL at the age of 58yrs. Medications and Allergies Home Medications Medication Instructions Recorded Confirmed Type Ergocalciferol [Vitamin D2 50,000 unit PO SA 09/11/14 12/05/18 History (DRISDOL)] Latanoprost Ophth [Xalatan 0.005%] 1 drop RIGHT EYE HS 09/11/14 12/05/18 History Timolol 0.5% Ophth Soln [Timoptic 1 drop BOTH EYES BID 01/22/18 12/05/18 History 0.5% Ophth Soln] Aspirin 81 mg PO DAILY chew 02/03/18 12/05/18 Rx Citalopram Hydrobromide [CeleXA] 40 mg PO DAILY tab 02/03/18 12/05/18 Rx Clopidogrel [Plavix] 75 mg PO DAILY tab 02/03/18 12/05/18 Rx Insulin Glulisine [Apidra] 16 unit SQ AC-TID 07/19/18 12/05/18 History Multivitamins, Thera [Multivitamin 1 tab PO DAILY 07/19/18 12/05/18 History (formulary)] Insulin Glulisine [Apidra] See Protocol SQ AC-TID PRN MDD IF 10/10/18 12/05/18 History SUGAR IS OVER 180 Atorvastatin [Lipitor] 80 mg PO DAILY 11/29/18 12/05/18 History Ferrous Sulfate [Iron (65 MG 325 mg PO DAILY 11/29/18 12/05/18 History Elemental)] Fexofenadine HCl [Citlaly Allergy] 180 mg PO DAILY 11/29/18 12/05/18 History Fluticasone Nasal [place] [Flonase 1 spray EA NOSTRIL DAILY 11/29/18 12/05/18 History Nasal [place]] Furosemide [Lasix] 20 mg PO BID 11/29/18 12/05/18 History HYDROcodone/APAP 10-325MG [[place] 2 tab PO BID 11/29/18 12/05/18 History 10-325] Hydrocortisone [Hydrocortisone 1 applic TOPICAL DAILY PRN 11/29/18 12/05/18 History 0.05%] Insulin Detemir [Levemir Flextouch] 18 units SQ HS 11/29/18 12/05/18 History Isosorbide Mononitrate ER [Imdur] 60 mg PO DAILY 11/29/18 12/05/18 History Metoprolol Tartrate [Lopressor] 25 mg PO BID 11/29/18 12/05/18 History Nitroglycerin Sl Tabs [Nitrostat] 0.4 mg SUBLINGUAL Q5M PRN 11/29/18 12/05/18 History Pantoprazole [Protonix] 40 mg PO AC-BRKFST PRN 11/29/18 12/05/18 History Polyethylene Glycol 3350 [Miralax] 17 gm PO DAILY 11/29/18 12/05/18 History metFORMIN HCL 500 mg PO DAILY 11/29/18 12/05/18 History Allergies Allergy/AdvReac Type Severity Reaction Status Date / Time diclofenac Allergy Unknown Verified 12/05/18 13:10 peanut Allergy PER Verified 12/05/18 13:10 ALLERGY TEST Penicillins Allergy ITCHING Verified 12/05/18 13:10 AND RED SKIN Physical Exam Vitals: Vital Signs Pulse Resp BP Pulse Ox 12/05/18 13:14 88 18 179/85 98 Social history : not smoker , NO ETOH , NO Illegal drugs use . Review of Systems : 1- Constitutional : no chills , no fever , no night sweats , 2- Ears : no ear discharge , no change in hearing 3-Nose, Mouth ,Throat ; no bleeding gums, no sore throat , no epistaxis , 4-Cardiovascular : History of coronary artery disease 5-Respiratory : Denies cough , no dyspnea , no hemoptysis 6-Gastrointestinal :, no change in bowel habits , no coffee- ground emesis . 7-Genitourinary : No hematuria , no discharge , no incontinence, 8-Musculoskeletal :gait dysfunction , report low back pain, upper back, hip pain and knee pain , 9- Neurological : no ataxia , no tremor , no sezure , 10-Psychatric , no suicidal ideation no hallucination 11- Endocrine : diabetes mellitus, morbid obesity 12-Hematologic : On Plavix 13-Allergic / immunology : no angioedema , no wheezing ,no allergic rhinitis 14-Integumentary : no brttle nails , no change hair / nails , no foot/leg ulcers . Physical Examinations : 1-Constitutional : Cooperative , not in acute distress . 2-HEENT : nech ; supple , no Lymphadenopathy , no Thyromegaly , :eyes , no icterus, no photophobia . 3- Gastrointestinal: abdomen soft , morbidly obese. 4- Genitourinary : Defferred . 5-Integumentary : No cellulitis , no cyanotic . 6- neurologic : Cranial nerve II to XII intact , no focal neurological deffecit 7-psychatric : alert , oriented X 3 , appropriate affect , intact judgment and insight . 8-Lymphatic : no Lymphadenopathy. 9- musculoskeltal: abnormal gait Multiple trigger points identified in the lower cervical upper thoracic area Painful points around the knee bilaterally painful points around the hip joints bilaterally Tenderness over the trochanteric bursa Lumber spine moter stegnth lower extremities ,thigh and legs 5/5 Right side , 5/5 Left side deep tendon reflexes : normal Knee Jerk , normal ankle Jerk positive lumber facet Loading Test Range of motion of the lumbar spine pain with flexion Flexion 60 degrees, extension 30 degrees strait leg raising test , positive at degree Fabere test positive RT and positive LT . Severe tenderness over the sacroiliac joint on the right side, and on the left side Gaenslen test= positive bilaterally Seated flexion test= positive bilaterally Dysesthesia at the distal part of the lower extremity bilaterally. Results Comments: Computed tomography scan of the lumbar spine= done August 2018, at the [facility], multilevel lumbar degenerative disc disease and multilevel lumbar facet degeneration Assessment and Plan Assessment: 1. Lumbar spondylosis without myelopathy 2. Lumbar radiculopathy 3. Obesity 4. Depression Plan: 1. Explanation: Opioid and psychological risk scores were reviewed. Diagnoses, prognoses, and multiple treatment options including but not limited to physical therapy, interventional therapies, adjuvant medical therapies, narcotic medication therapies, and surgery were discussed with the patient and all questions were answered to the patient's satisfaction. 2. Opioid agreement: 3. Counseling: Patient was counseled extensively on weight control and obesity, and exercise in the context of both chronic pain and overall health. 4. Procedures: Left lumbar radio frequency ablation of L3-L4, L4-L5, L5-S1. 5. Consultations: None 6. Investigations: None 7. Medications: From PCP 8. Disposition: f/u for procedure as scheduled PQRS measures: 1-Patient's medications are documented in the chart. 2-Tobacco use is positive, counseling given 3-Patient has not had a pneumococcal vaccine. 4-Advanced care planning discussed, patient unable to give. 5-Opioid contract signed with the patient. 6-Pain positive, follow-up visit or procedure scheduled 7-Patient's blood pressure measured and documented, and WNL. 8-Patient's weight was measured, and body mass index ABOVE the normal limits, and counseling was done. Patient instructed to follow up with PCP. 9-Patient WAS NOT identified as an unhealthy alcohol user. Smoking Status Former smoker Do You Want the Pneumonia Vaccine Up to Date Vaccine AT THIS TIME? Blood Pressure 179/85 Pain Intensity [Bilateral 8 Lower Back] Scale Used Numeric (1 - 10) Hx Alcohol Use (MH) No
== END | disposition home or self-care (01) ==
LOC: PNWHC3 10:40
PROVIDERS: ATTEND Anesthesiology
DX: G89.29 Other chronic pain (principal); M47.26 Other spondylosis with radiculopathy, lumbar region; E66.9 Obesity, unspecified; F32.9 Major depressive disorder, single episode, unspecified; Z87.891 Personal history of nicotine dependence; Z79.899 Other long term (current) drug therapy; Z88.0 Allergy status to penicillin; Z88.6 Allergy status to analgesic agent; Z68.41 Body mass index [BMI] 40.0-44.9, adult
CPT/HCPCS: 99211

== ENCOUNTER 2019-01-30 06:48 | Day surgery (SDC) | payer OTHER, MEDICARE ==
[2019-01-23 13:49] VITALS: BMI 41.5
[2019-01-30] MEDS ORDERED: LIDOCAINE 1% 20 ML VIAL (10MG/ML) FOR IV START INTRADERMA ONE (06:54)
[2019-01-30 07:09] VITALS: RESP 16; TEMP 97.7
[2019-01-30] MEDS ORDERED: LACTATED RINGERS 1,000 ML IV ONE (07:10)
[2019-01-30 07:11] LABS: Glucose,Whole Blood 135 mg/dL (75-99)
--- NOTE | 2019-01-30 08:08 | P.PCN ---
Date of Procedure: 01/30/19 Operative Findings: PREOPERATIVE DIAGNOSIS: Lumbar Facet Arthropathy. POSTOPERATIVE DIAGNOSIS: Lumbar Facet Arthropathy. PROCEDURES : Right Radiofrequency thermocoagulation, L3, L4, and L5 medial branch, with fluoroscopic guidance ANESTHESIA: IV sedation with versed and fentanyl and local infiltration with lidocaine 1% 10 ml EBL: Minimal PROCEDURE INDICATION: The patient with low back pain secondary to lumbar facet arthropathy who had more than 50% relief of pain with previous diagnostic lumbar medial branch block with local anesthetic. PROCEDURE DESCRIPTION / TECHNIQUE: The patient was seen and identified in the preoperative area. Risks, benefits, complications, including but not limited to risk of infection ,bleeding , allergic reactions to the medications and no complete pain relief , and alternatives were discussed with the patient, the patient agreed to proceed with the procedure and signed the consent. IV was started. Vital signs remained stable throughout the procedure. Patient was taken to the OR and time out was completed. The patient was placed in the prone position on the procedure table. The lumber area was prepped and draped in the usual sterile fashion. . Vital signs were closely monitored during the procedure .IV sedation was used during the procedure to decrease patient anxiety. Using AP and then oblique fluoroscopy, the eye of the Alex dog corresponding to the connection between the superior and transverse articular processes of Right L3, L4, and L5 were identified, marked, and localized with 1% lidocaine. Subsequently, a [id number] radiofrequency cannula with a 10-mm active tip was advanced guided by fluoroscopy to each of the eyes of the Alex dog at L3, L4, and L5. Each site then underwent sensory testing at 50 Hz and 0 to 1 volt and motor testing at 2.5 Hz and 0 to 3 volt with local stimulation, but no radicular symptoms down the legs. Thereafter the L3, L4, and L5 sites underwent radiofrequency thermocoagulation at 80 degrees celsius for 90 seconds after injecting 0.5 ml of PF lidocaine 1%. Then after the thermocoagulation was done , 1 ml of the block solution containing marcaine 0.5% was injected at the Right L3 , L4 , and L5, levels after negative aspiration of CSF and blood and with no paresthesias. Cannulas were retracted. At the end of the procedure, the skin was cleansed and bandages were applied. COMPLICATIONS: No acute complications. DISPOSITION / PLANS: The patient was placed in a supine position and transferred to the recovery area in a stable condition for observation and was discharged from the recovery room after meeting discharge criteria. Home discharge instructions given to the patient by the staff. The patient was reexamined prior to discharge. We will perform the other side in 2 weeks.
[2019-01-30] MEDS ORDERED: IV FLUID CONTINUATION 1,000 ML IV ONE (08:13)
[2019-01-30 08:23] LABS: Glucose,Whole Blood 147 mg/dL (75-99)
[2019-01-30 08:37] VITALS: BP 133/64; PULSE 64
--- NOTE | 2019-01-30 09:01 | FL ---
Fluoroscopy HISTORY: Pain 4 seconds fluoroscopy time supplied to the referring clinician. 1 intraoperative C-arm images docume nt the procedure. See dictated report from anesthesia.
== END 2019-01-30 08:52 | disposition home or self-care (01) ==
LOC: ORPAIN 06:48
PROVIDERS: ATTEND Hospitalist
DX: M47.816 Spondylosis without myelopathy or radiculopathy, lumbar region (principal); Z88.0 Allergy status to penicillin
CPT/HCPCS: 64635; 64636; J2250; J2001; J3010; 99152

== ENCOUNTER 2019-02-27 05:52 | Day surgery (SDC) | payer OTHER, MEDICARE ==
[2019-02-22 16:05] VITALS: BMI 42.0
[~2019-02-27 05:52] MED LIST changes: +LACTATED RINGERS 1,000 ML IV SCH; -SODIUM CHLORIDE 0.9% 500 ML 500 ML IV SCH
[2019-02-27] MEDS ORDERED: LIDOCAINE 1% 20 ML VIAL (10MG/ML) FOR IV START INTRADERMA ONE (06:46)
[2019-02-27 06:53] VITALS: RESP 18; TEMP 97.5
--- NOTE | 2019-02-27 07:22 | P.PCN ---
Date of Procedure: 02/27/19 Procedure(s) Performed: PREOPERATIVE DIAGNOSIS: 1-Lumbar Spondylosis with Facet Arthropathy without myelopathy. POSTOPERATIVE DIAGNOSIS: 1- Lumbar Spondylosis with Facet Arthropathy without myelopathy. PROCEDURES : Left Radiofrequency thermocoagulation, L3-L4, L4-L5, and L5-S1 m edial branch, with fluoroscopic guidance ANESTHESIA: Moderate sedation with intravenous versed 2mg and fentaneyl 100 mcg, and local infiltration with Ropivacaine 0.5 % . EBL: Minimal PROCEDURE INDICATION: The patient with low back pain secondary to lumbar facet arthropathy who had more than 50% relief of her pain with previous diagnostic lumbar medial branch block with bupivacaine. PROCEDURE DESCRIPTION / TECHNIQUE: The patient was seen and identified in the preoperative area. Risks, benefits, complications, including but not limited to risk of infection ,bleeding , allergic reactions to the medications and no complete pain releife , and alternatives were discussed with the patient, the patient agreed to proceed with the procedure and signed the consent. IV was started. Vital signs remained stable throughout the procedure. Patient was taken to the OR and time out was completed. The patient was placed in the prone position on the procedure table. The lumber area was prepped and draped in the usual sterile fashion. . Vital signs were closely monitored during the procedure .IV sedation was used during the procedure to decrease patients anxiety. Using AP and then oblique fluoroscopy, the ``eye of the Alex dog corresponding to the connection between the superior and transverse articular processes of left L3, L4, and L5 were identified, marked, and localized with 1% lidocaine. Subsequently, a 18 -ah radiofrequency cannula with a 10- mm active tip was advanced guided by fluoroscopy to each of the``eyes of the Alex dog at left L3, L4, and L5. Each site then underwent sensory testing at 50 Hz and 0 to 1 volt and motor testing at 2.5 Hz and 0 to 3 volt with local stimulation, but no radicular symptoms down the legs. Thereafter the left L3- 4, L4-5, and L5-S1 sites underwent radiofrequency thermocoagulation at 80 degrees celsius for 90 seconds after injecting 0.5 ml of PF Ropivacaine 1ml, then after the thermocoagulation done , 1 ml of the block solution contaiing 3 ml of Ropivacaine 0.5% was injected at the left L3-4 , L4-5 , and L5-S1, levels after negative aspiration of CSF and blood and with no paresthesias. Cannulas were retracted while injecting lidocaine 1% until the needle is out. At the end of the procedure, the skin was cleansed and bandages were applied. COMPLICATIONS: No acute complications. DISPOSITION / PLANS: The patient was placed in a supine position and transferred to the recovery area in a stable condition for observation and was discharged from the recovery room after meeting discharge criteria. Home dis charge instructions given to the patient by the staff. The patient was reexamined prior to discharge. The patient will schedule a follow up in the clinic in 2-4 weeks. no steroid was used for the procedure.
[2019-02-27 07:46] VITALS: BP 122/70; PULSE 75
[2019-02-27] MEDS ORDERED: IV FLUID CONTINUATION 1,000 ML IV ONE (07:48)
--- NOTE | 2019-02-27 09:17 | FL ---
EXAMINATION TYPE: FL guided pain mgmt statistic DATE OF EXAM: 02/27/2019 HISTORY: Flouroscopy time 10 seconds of fluoroscopy provided. IMPRESSION: 1. Fluoroscopy time.
== END 2019-02-27 07:59 | disposition home or self-care (01) ==
LOC: ORPAIN 05:52
PROVIDERS: ATTEND Specialist
DX: M47.816 Spondylosis without myelopathy or radiculopathy, lumbar region (principal); I25.10 Atherosclerotic heart disease of native coronary artery without angina pectoris; I10 Essential (primary) hypertension; E11.9 Type 2 diabetes mellitus without complications; K21.9 Gastro-esophageal reflux disease without esophagitis; Z79.02 Long term (current) use of antithrombotics/antiplatelets; Z88.0 Allergy status to penicillin; Z88.6 Allergy status to analgesic agent; Z91.010 Allergy to peanuts; Z88.8 Allergy status to other drugs, medicaments and biological substances
CPT/HCPCS: 64635; 64636 ×2; J2250; J3010; 99152

== ENCOUNTER → 2019-04-02 | Outpatient (CLI) | payer OTHER, MEDICARE ==
[2019-04-02 13:28] VITALS: BP 101/66; PULSE 60; RESP 16
--- NOTE | 2019-04-02 14:12 | P.PN ---
Subjective Progress Note Date: 04/02/19 Manju is a pleasant 68-year-old female presents today for follow-up. She status post radiofrequency ablation of bilateral lumbar medial branch blocks. She reports that her back pain is about 70-80% improved. She reports that her pain across the low back is significantly improved but has little bit of burning sensation across the back. She denies any radicular symptoms. She feels that lower extremity is a little bit weaker than it been in the past. This is an ongoing problem for her. She has not reported any falls. She reports that she just feels unsteady at times and uses her cane for ambulation. She feels unsteady with trying to navigate stairs or walking for long periods. She denies any bowel or bladder incontinence. She denies any specific radicular symptoms in a dermatomal distributions. 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 Straight leg raise is negative. Limited range of motion due to pain with flexion, extension and side bending. There is no erythema or fluctuance noted over the lumbar spine. There is no hyperalgesia noted over the lumbar spine. Lower extremity strength is 5 out of 5 in the quadriceps, hamstrings, anterior tibial, gastrocnemius, abductors and abductors Neuro exam: Normal sensation in bilateral upper extremities, deep tendon reflexes are 2+ bilateral upper extremities. Normal sensation in bilateral lower extremities. Deep tendon reflexes are 2+ in lower extremities Psych exam: Cooperative, appropriate mood Assessment and Plan Assessment: 1 lumbar spondylosis without myelopathy #2 morbid obesity Plan: I do not see any specific signs of weakness noted. Pending the patient has generalized weakness secondary to her body habitus and muscle wasting. I believe that physical therapy was significantly improve her overall strength and her health. I will give her a prescription for physical therapy to improve her lower extremity strength. Patient follow-up as needed
== END ==
LOC: PNWHC3 12:41
PROVIDERS: ATTEND Hospitalist
DX: M47.816 Spondylosis without myelopathy or radiculopathy, lumbar region (principal); E66.01 Morbid (severe) obesity due to excess calories
CPT/HCPCS: 99211

== ENCOUNTER 2019-06-04 11:24 | Observation (INO) | payer OTHER, MEDICARE ==
[2019-06-04] MEDS ORDERED: ASPIRIN 81 MG PO STA ×2 (12:06→13:27)
[2019-06-04] MEDS ORDERED: NITROGLYCERIN OINT 1 INCH/GM PACKET TOPICAL STA (12:06)
--- NOTE | 2019-06-04 12:09 | ED ---
General Adult HPI - General Chief complaint: Chest Pain Stated complaint: Chest tightness Time Seen by Provider: 06/04/19 11:37 Source: patient, RN notes reviewed Mode of arrival: wheelchair Limitations: no limitations - History of Present Illness Initial comments: Patient is a pleasant 68-year-old female presenting to the emergency Department with complaints of chest tightness. Onset of symptoms was shortly after waking this morning. Discomfort was moderate however now is only mild. Discomfort is described as tightness. No radiation. Patient did have nausea with 2 episodes of vomiting. No dyspnea. Patient felt sweaty earlier however this has resolved. - Related Data Home Medications Medication Instructions Recorded Confirmed Ergocalciferol [Vitamin D2 50,000 unit PO SA 09/11/14 06/04/19 (DRISDOL)] Latanoprost Ophth [Xalatan 0.005%] 1 drop RIGHT EYE HS 09/11/14 06/04/19 Timolol 0.5% Ophth Soln [Timoptic 1 drop BOTH EYES BID 01/22/18 06/04/19 0.5% Ophth Soln] Multivitamins, Thera [Multivitamin 1 tab PO DAILY 07/19/18 06/04/19 (formulary)] Ferrous Sulfate [Iron (65 MG 325 mg PO DAILY 11/29/18 06/04/19 Elemental)] Fexofenadine HCl [Citlaly Allergy] 180 mg PO DAILY 11/29/18 06/04/19 Fluticasone Nasal [place] [Flonase 1 spray EA NOSTRIL DAILY PRN 11/29/18 06/04/19 Nasal [place]] Hydrocortisone [Hydrocortisone 1 applic TOPICAL DAILY PRN 11/29/18 06/04/19 0.05%] Metoprolol Tartrate [Lopressor] 25 mg PO BID 11/29/18 06/04/19 Nitroglycerin Sl Tabs [Nitrostat] 0.4 mg SUBLINGUAL Q5M PRN 11/29/18 06/04/19 metFORMIN HCL 500 mg PO DAILY 11/29/18 06/04/19 Losartan Potassium [Cozaar] 25 mg PO DAILY 12/12/18 06/04/19 Aspirin 81 mg PO HS 12/26/18 06/04/19 Citalopram Hydrobromide [CeleXA] 20 mg PO DAILY 12/26/18 06/04/19 Empagliflozin/Linagliptin 1 tab PO QAM 12/26/18 06/04/19 [Glyxambi 10 mg-5 mg Tablet] HYDROcodone/APAP 5-325MG [[place] 2 tab PO BID PRN 12/26/18 06/04/19 5-325] Insulin Glargine [Lantus] 18 unit SQ HS 12/26/18 06/04/19 Isosorbide Mononitrate ER [Imdur] 60 mg PO DAILY 01/23/19 06/04/19 Polyethylene Glycol 3350 [Miralax] 17 gm PO DAILY PRN 01/23/19 06/04/19 INSULIN LISPRO (humaLOG) [humaLOG] 16 units SQ TID 04/02/19 06/04/19 Atorvastatin [Lipitor] 80 mg PO DAILY 06/04/19 06/04/19 Furosemide [Lasix] 20 mg PO BID 06/04/19 06/04/19 INSULIN LISPRO (humaLOG) [humaLOG] See Protocol SQ TID PRN 06/04/19 06/04/19 Previous Rx's Medication Instructions Recorded Clopidogrel [Plavix] 75 mg PO DAILY tab 02/03/18 Allergies Allergy/AdvReac Type Severity Reaction Status Date / Time diclofenac Allergy HIGH BLOOD Verified 06/04/19 11:52 SUGAR peanut Allergy PER Verified 06/04/19 11:52 ALLERGY TEST Penicillins Allergy ITCHING Verified 06/04/19 11:52 AND RED SKIN Review of Systems ROS Statement: Those systems with pertinent positive or pertinent negative responses have been documented in the HPI. ROS Other: All systems not noted in ROS Statement are negative. Constitutional: Denies: fever Eyes: Denies: eye pain ENT: Denies: ear pain Respiratory: Reports: as per HPI. Denies: cough Cardiovascular: Reports: chest pain Endocrine: Denies: fatigue Gastrointestinal: Reports: nausea, vomiting. Denies: abdominal pain Genitourinary: Denies: dysuria Musculoskeletal: Denies: back pain Skin: Denies: rash Neurological: Denies: weakness Past Medical History Past Medical History: Coronary Artery Disease (CAD), Chest Pain / Angina, Diabetes Mellitus, Eye Disorder, Fibromyalgia, GERD/Reflux, Hyperlipidemia, Hypertension, Myocardial Infarction ([place]), Osteoarthritis (OA), Skin Disorder, Vascular Disorder Additional Past Medical History / Comment(s): MIs x2, bilateral carotid artery disease, nephritis and had to receive hemodialysis twice-kidneys normal since, IDDM type II, bilateral eye glaucoma/retinopathy/retinal bleeds, neuropathy bilateral hands/feet, diffuse arthritis, DDD, chronic low back pain with bilateral sciatica, recurrent buttock ulcerations, bronchitis, sinus problems, UTIs, past migraines, currently using a willy 14 day sensor for blood sugar levels, bladder leakage, uses cane for mobility Last Myocardial Infarction Date:: 12/2017 History of Any Multi-Drug Resistant Organisms: None Reported Past Surgical History: Bariatric Surgery, Cholecystectomy, Coronary Bypass/CABG, Heart Catheterization, Tubal Ligation Additional Past Surgical History / Comment(s): 12/2017 CABG 3 vessel, lap banding, bilateral knee scopes, bilateral carpal tunnel releases, R eye has metal implant per pt d/t eyelid ligament problem, bilateral laser eye surgery for retinal bleeds, bilateral cataract removals/lens implants, bilateral hand trigger finger surgeries, EGD, colonoscopy, sinus surgery, pilonidal cystectomy, R temporal bx and mole removal (benign), R trunk benign mole removal. Past Anesthesia/Blood Transfusion Reactions: No Reported Reaction Additional Past Anesthesia/Blood Transfusion Reaction / Comment(s): Pt has received blood without reaction. Past Psychological History: No Psychological Hx Reported Smoking Status: Former smoker Past Alcohol Use History: None Reported Past Drug Use History: None Reported - Past Family History Father Family Medical History: Cancer Additional Family Medical History / Comment(s): Pt does not recall type of cancer father had but it caused him to have an arm amputation. Mother Family Medical History: Diabetes Mellitus, Myocardial Infarction ([place]) Additional Family Medical History / Comment(s): Mother of a [place] at the age of 58yrs. General Exam Limitations: no limitations General appearance: alert, in no apparent distress Head exam: Present: atraumatic Eye exam: Present: PERRL ENT exam: Present: normal oropharynx Neck exam: Present: normal inspection Respiratory exam: Present: normal lung sounds bilaterally. Absent: chest wall tenderness Cardiovascular Exam: Present: regular rate, normal rhythm Expanded Peripheral pulses: 2+: Radial (R), Radial (L), Dorsalis Pedis (R), Dorsalis Pedis (L) GI/Abdominal exam: Present: soft. Absent: tenderness Extremities exam: Present: normal inspection. Absent: pedal edema, calf tenderness Neurological exam: Present: alert Psychiatric exam: Present: normal affect, normal mood Skin exam: Present: normal color Course Vital Signs 06/04/19 06/04/19 11:28 13:09 Temperature 98.8 F Pulse Rate 80 73 Respiratory 18 18 Rate Blood Pressure 194/78 131/59 O2 Sat by Pulse 98 97 Oximetry EKG Findings - EKG Comments: EKG Findings:: Normal sinus rhythm 79. AK 178. QRS 80. QT 34. QTC 440. Normal axis. Normal QRS. No acute ST change. Medical Decision Making - Medical Decision Making Patient reevaluated and resting comfortably in bed. Patient did have some nausea and emesis. Patient still feels somewhat nauseated. Zofran was just given. Patient states chest discomfort has not completely resolved. Patient and family updated on results and plan. Case was discussed in detail with Dr. Singleton, who will admit his patient. - Lab Data Result diagrams: 06/04/19 12:10 06/04/19 12:10 Lab Results 06/04/19 06/04/19 06/04/19 Range/Units 12:10 12:10 12:10 WBC 7.2 (3.8-10.6) k/uL RBC 4.02 (3.80-5.40) m/uL Hgb 12.7 (11.4-16.0) gm/dL Hct 38.3 (34.0-46.0) % MCV 95.3 (80.0-100.0) fL MCH 31.6 (25.0-35.0) pg MCHC 33.2 (31.0-37.0) g/dL RDW 13.5 (11.5-15.5) % Plt Count 243 (150-450) k/uL Neutrophils % 71 % Lymphocytes % 20 % Monocytes % 4 % Eosinophils % 5 % Basophils % 0 % Neutrophils # 5.1 (1.3-7.7) k/uL Lymphocytes # 1.4 (1.0-4.8) k/uL Monocytes # 0.3 (0-1.0) k/uL Eosinophils # 0.3 (0-0.7) k/uL Basophils # 0.0 (0-0.2) k/uL PT 10.1 (9.0-12.0) sec INR 0.9 (<1.2) APTT 25.0 (22.0-30.0) sec Sodium 141 (137-145) mmol/L Potassium 3.9 (3.5-5.1) mmol/L Chloride 110 H (98-107) mmol/L Carbon Dioxide 20 L (22-30) mmol/L Anion Gap 11 mmol/L BUN 17 (7-17) mg/dL Creatinine 0.89 (0.52-1.04) mg/dL Est GFR (CKD-EPI)AfAm 77 (>60 ml/min/1.73 sqM) Est GFR (CKD-EPI)NonAf 67 (>60 ml/min/1.73 sqM) Glucose 155 H (74-99) mg/dL Calcium 9.3 (8.4-10.2) mg/dL Magnesium 2.1 (1.6-2.3) mg/dL Total Bilirubin 0.8 (0.2-1.3) mg/dL AST 28 (14-36) U/L ALT 27 (9-52) U/L Alkaline Phosphatase 90 (38-126) U/L Troponin I (0.000-0.034) ng/mL Total Protein 7.3 (6.3-8.2) g/dL Albumin 3.8 (3.5-5.0) g/dL 06/04/19 Range/Units 12:10 WBC (3.8-10.6) k/uL RBC (3.80-5.40) m/uL Hgb (11.4-16.0) gm/dL Hct (34.0-46.0) % MCV (80.0-100.0) fL MCH (25.0-35.0) pg MCHC (31.0-37.0) g/dL RDW (11.5-15.5) % Plt Count (150-450) k/uL Neutrophils % % Lymphocytes % % Monocytes % % Eosinophils % % Basophils % % Neutrophils # (1.3-7.7) k/uL Lymphocytes # (1.0-4.8) k/uL Monocytes # (0-1.0) k/uL Eosinophils # (0-0.7) k/uL Basophils # (0-0.2) k/uL PT (9.0-12.0) sec INR (<1.2) APTT (22.0-30.0) sec Sodium (137-145) mmol/L Potassium (3.5-5.1) mmol/L Chloride (98-107) mmol/L Carbon Dioxide (22-30) mmol/L Anion Gap mmol/L BUN (7-17) mg/dL Creatinine (0.52-1.04) mg/dL Est GFR (CKD-EPI)AfAm (>60 ml/min/1.73 sqM) Est GFR (CKD-EPI)NonAf (>60 ml/min/1.73 sqM) Glucose (74-99) mg/dL Calcium (8.4-10.2) mg/dL Magnesium (1.6-2.3) mg/dL Total Bilirubin (0.2-1.3) mg/dL AST (14-36) U/L ALT (9-52) U/L Alkaline Phosphatase (38-126) U/L Troponin I <0.012 (0.000-0.034) ng/mL Total Protein (6.3-8.2) g/dL Albumin (3.5-5.0) g/dL - Radiology Data Radiology results: image reviewed (Chest x-ray shows no acute process) Disposition Clinical Impression: Chest pain Disposition: ADMITTED IP TO THIS HOSP Is patient prescribed a controlled substance at d/c from ED?: No Referrals: Tim Osborn MD [Primary Care Provider] - 1-2 days Decision Time: 13:27
[2019-06-04 12:30] LABS: Basophils % (A) 0 %; Eosinophils # (A) 0.3 k/uL (0-0.7); Eosinophils % (A) 5 %; HCT 38.3 % (34.0-46.0); HGB 12.7 gm/dL (11.4-16.0); Lymphocytes # (A) 1.4 k/uL (1.0-4.8); Lymphocytes % (A) 20 %; MCH 31.6 pg (25.0-35.0); MCHC 33.2 g/dL (31.0-37.0); MCV 95.3 fL (80.0-100.0); Mean Platelet Volume 6.6; Monocytes # (A) 0.3 k/uL (0-1.0); Monocytes % (A) 4 %; Neutrophils # (A) 5.1 k/uL (1.3-7.7); Neutrophils % (A) 71 %; Platelet Count 243 k/uL (150-450); RBC 4.02 m/uL (3.80-5.40); RDW 13.5 % (11.5-15.5); WBC 7.2 k/uL (3.8-10.6)
--- NOTE | 2019-06-04 12:38 | XR ---
EXAMINATION TYPE: XR chest 2V DATE OF EXAM: 06/04/2019 COMPARISON: 10/10/2018 HISTORY: Chest pain TECHNIQUE: Frontal and lateral views of the chest are obtained. FINDINGS: There is no focal air space opacity, pleural effusion, or pneumothorax seen. The cardiac silhouette size is mildly enlarged with post CABG change. The osseous structures are intact. Minima l multilevel degenerative changes of the spine. Mild arthropathy of the shoulders. IMPRESSION: No acute cardiopulmonary process.
[2019-06-04 12:40] LABS: INR 0.9 (<1.2); Prothrombin Time 10.1 sec (9.0-12.0)
[2019-06-04 12:41] LABS: Albumin 3.8 g/dL (3.5-5.0); Calcium 9.3 mg/dL (8.4-10.2); Magnesium 2.1 mg/dL (1.6-2.3); Potassium 3.9 mmol/L (3.5-5.1); Total Bilirubin 0.8 mg/dL (0.2-1.3); Total Protein 7.3 g/dL (6.3-8.2)
[2019-06-04] MEDS ORDERED: ONDANSETRON 4 MG/2 ML VIAL IVP STA (13:08)
[2019-06-04] MEDS ORDERED: NITROGLYCERIN SL TABS 0.4 MG TAB SUBLINGUAL PRN ×2 (13:27→18:01)
[2019-06-04] MEDS ORDERED: HYDROcodone/APAP 10-325MG 1 EACH TAB PO ONE (13:37)
[2019-06-04] MEDS ORDERED: HYDROCORTISONE 1% CREAM 30 GM TUBE TOPICAL PRN (18:01)
[2019-06-04] MEDS ORDERED: HYDROcodone/APAP 5-325MG 1 EACH TAB PO PRN (18:01)
[2019-06-04] MEDS ORDERED: FLUTICASONE 50MCG/SPRAY NASAL 16GM EA NOSTRIL PRN (18:01)
[2019-06-04] MEDS ORDERED: POLYETHYLENE GLYCOL 3350 17 GM POWD.PACK PO PRN (18:01)
[2019-06-04] MEDS: FUROSEMIDE 20 MG TAB PO SCH (18:18)
[2019-06-04] MEDS: INSULIN ASPART (NovoLOG) 100 UNIT/ML VIAL SQ SCH (18:19)
[2019-06-04] MEDS: NITROGLYCERIN OINT 1 INCH/GM PACKET TOPICAL SCH ×2 (18:19→23:09)
[2019-06-04 19:09] VITALS: RESP 18
[2019-06-04 20:03] LABS: Glucose,Whole Blood 183 mg/dL (75-99)
[2019-06-04] MEDS: METOPROLOL TARTRATE 25 MG TAB PO SCH (20:43)
[2019-06-04] MEDS: TIMOLOL 0.5% OPHTH DROPS 5 ML BTL BOTH EYES SCH (20:43)
[2019-06-04] MEDS ORDERED: LATANOPROST 0.005% OPHTH DROPS 2.5 ML BTL RIGHT EYE SCH (21:00)
[2019-06-04] MEDS ORDERED: INSULIN DETEMIR (LEVEMIR) 100 UNIT/ML SYR SQ SCH (21:00)
[2019-06-04] MEDS ORDERED: ASPIRIN 81 MG PO SCH (21:00)
--- NOTE | 2019-06-04 22:00 | HP ---
HISTORY AND PHYSICAL Mrs. Akers is a 68-year-old female who presented with the chief complaint of chest pain and chest tightness. HISTORY OF PRESENT ILLNESS: The patient this morning developed anterior chest tightness that spread across the upper chest on both sides. She apparently had just helped her make breakfast and was sitting down when this started. The pain was not being relieved. She felt nauseated and sick. The patient therefore was brought to the emergency room. The patient states she was not too short of breath with this; more nauseated. PAST MEDICAL HISTORY: The patient's past medical history is positive for previous coronary artery bypass approximately a year ago. She also has a history of multiple risk factors that include diabetes, hypertension, high cholesterol, along with being a former smoker and a positive family history for heart disease. PREVIOUS SURGICAL HISTORY: Previous surgical history includes: 1. Cholecystectomy. 2. Knee arthroscopy. 3. Sinus surgery. 4. Previous pilonidal cyst removal. 5. Right-sided temporal lobe lesion removed. 6. Previous tubal ligation. HOME MEDICATIONS: Home medications include a long list of medications: 1. Metformin 500 mg daily. 2. Timoptic eyedrops 0.5% one drop in both eyes twice a day. 3. MiraLAX 17 grams daily. 4. Nitroglycerin 0.4 sublingually p.r.n. for pain. 5. Multiple vitamin daily. 6. Metoprolol tartrate 25 mg twice a day. 7. Losartan 25 mg daily. 8. Xalatan 0.005% eyedrops one drop in the right eye at bedtime. 9. Isosorbide mononitrate extended-release 600 mg daily. 10.Lantus 18 units at night, 16 units of insulin Lispro or Humalog before meals. 11.Hydrocortisone topically as needed. 12.[place] 5/325 two tablets twice a day as needed for pain. 13.Lasix 20 mg twice a day. 14.Flonase nasal spray daily. 15.Citlaly 180 mg daily. 16.Ferrous sulfate 325 daily. 17.Vitamin D 50,000 units every Tuesday. 18.Glyxambi 10 mg/5 mg one tablet daily. 19.Plavix 75 mg daily. 20.Celexa 20 mg daily. 21.Atorvastatin 80 mg daily. 22.Aspirin 81 mg daily. ALLERGIES: The patient does have history of ALLERGIES to: 1. PEANUTS. 2. PENICILLIN. She gets itching and erythema of the skin. 3. DICLOFENAC. She had elevated blood sugars. REVIEW OF SYSTEMS: Negative for any unusual headache. No fever or chills. No unusual cough. She did not have any urinary or bowel symptoms. No unusual edema. FAMILY HISTORY: Positive for diabetes and heart disease. SOCIAL HISTORY: She does not smoke or drink at this time. She does live locally with her . PHYSICAL EXAMINATION: She is sitting up in a chair in the emergency room in no acute distress. Last vital signs show temperature 97.7, pulse 65, respirations 18, blood pressure 114/77, and she is 99% saturated on room air. Head and neck exam is unremarkable and atraumatic. No carotid bruits, thyromegaly or adenopathy detected. Lungs were clear to auscultation. Heart regular without murmurs. Breasts and pelvic exam deferred. Abdomen was nontender; no masses. Extremities revealed no unusual edema. Rectal and pelvic again was deferred. Neurologically there were no focal deficits. She is alert and oriented. No cranial nerve deficits noted. LABORATORY TESTING/IMAGING: White count 7 2, hemoglobin 12.7, platelet count of 243. INR was 0.9. PTT 25. Her basic chemistries reveal sodium 141, potassium 3.9, CO2 content of 20. Her BUN is 17 with creatinine 0.89, giving her a GFR of 67. Blood sugar 155. Liver function tests were unremarkable. Normal bilirubin, normal AST, normal ALT. Alkaline phosphatase normal. Troponin x1 is negative. Albumin 3.8. Chest x-ray showed Chest x-ray showed no acute disease. EKG showed a normal sinus rhythm. IMPRESSION: At this point, overall impression is this 68-year-old female who has coronary artery disease, post bypass surgery and a long list of risk factors, as stated above. She presented with chest pain that took a while to be relieved; approximately an hour overall until she felt the pain was relieved in the emergency room. At this point she is being monitored. Repeat enzymes will be done. Cardiology consult to be obtained. Further recommendations and treatment pending clinical response and results of above. MMODL / IJN: [id number] / MTDD
[2019-06-05 03:24] LABS: Cholesterol 133 mg/dL (<200); HDL Cholesterol 47 mg/dL (40-60); LDL Cholesterol,Calculated 51 mg/dL (0-99); Triglycerides 176 mg/dL (<150)
[2019-06-05] MEDS: NITROGLYCERIN OINT 1 INCH/GM PACKET TOPICAL SCH ×3 (05:40→17:39)
[2019-06-05 06:32] LABS: Glucose,Whole Blood 122 mg/dL (75-99)
[2019-06-05] MEDS: INSULIN ASPART (NovoLOG) 100 UNIT/ML VIAL SQ SCH ×3 (08:14→17:39)
[2019-06-05] MEDS ORDERED: DOBUTamine DRIP for NUC MED 500 MG in DEXTROSE/WATER 1 250ML.BAG IV ONE (08:51)
[2019-06-05] MEDS ORDERED: LINAGLIPTIN PO SCH (09:00)
[2019-06-05] MEDS ORDERED: FERROUS SULFATE 325 MG TAB PO SCH (09:00)
[2019-06-05] MEDS ORDERED: CITALOPRAM HYDROBROMIDE 20 MG TAB PO SCH (09:00)
[2019-06-05] MEDS ORDERED: CLOPIDOGREL 75 MG TAB PO SCH (09:00)
[2019-06-05] MEDS ORDERED: MULTIVITAMINS, THERA 1 EACH TAB PO SCH (09:00)
[2019-06-05] MEDS ORDERED: LOSARTAN 25 MG TAB PO SCH (09:00)
[2019-06-05] MEDS ORDERED: ISOSORBIDE MONONITRATE ER 60 MG TAB.ER.24H PO SCH (09:00)
[2019-06-05] MEDS ORDERED: EMPAGLIFLOZIN PO SCH (09:00)
[2019-06-05] MEDS ORDERED: ASPIRIN 325 MG TAB PO SCH (09:00)
[2019-06-05] MEDS ORDERED: LORATADINE 10 MG TAB PO SCH (09:00)
[2019-06-05] MEDS ORDERED: ATORVASTATIN 80 MG TAB PO SCH (09:00)
--- NOTE | 2019-06-05 09:11 | P.PN ---
Progress Note - Text The patient is a 68-year-old female presented yesterday to the emergency room with chest pain and tightness. Patient has past history of previous coronary artery bypass about 1 year ago. She also has multiple risk factors include diabetes hypertension and high cholesterol along with a previous smoking history and positive family history. The patient this morning is sitting at the side of the bed. She is alert and oriented. Denies any chest pain through the night. Last vital signs were temperature 90.8 with a pulse of 63 and respirations 18. Blood pressure 126/52 and she is 97% saturated on room air. Lung and heart exam was clear and regular. Abdomen nontender. No unusual edema. No neurological changes. Troponins 3 has been less than 0.012. Blood sugar this morning is 122. Impressions and plans Patient is being monitored. Consultation has been placed with cardiology and is pending. We'll await for further recommendations from cardiology. Continue present medications.
--- NOTE | 2019-06-05 09:36 | P.CRDCN ---
History of Present Illness History of present illness: This is Lilibeth Arevalo PA-C dictating a consult on this patient The patient was interviewed and examined by me as well as by Dr. Núñez Case discussed with Dr. Núñez and he agrees with the plan of care IMPRESSION / ASSESSMENT: Atypical chest discomfort with nausea and vomiting, resolved today, troponins negative, no EKG changes CAD status post CABG Hypertension Dyslipidemia Type 2 diabetes Fibromyalgia PLAN: Dobutamine stress echo to rule out progression of CAD, if negative she may be discharged from a cardiac standpoint and follow-up with her primary product control and logistics analyst within 2 weeks Continue Lipitor 80 mg daily, losartan, metoprolol, dual antiplatelet therapy HPI Patient is a 68-year-old female with a past medical history of CAD status post CABG, hypertension, dyslipidemia, type 2 diabetes, and fibromyalgia who presented to the emergency department with complaints of chest discomfort. She was at home making her 's breakfast when she experienced a sudden onset of chest discomfort which she describes as a tightness in the center of her chest that was nonradiating. She had associated nausea and vomited several times. She did eat a sandwich in the morning prior to the vomiting. She also had diaphoresis. Denies associated shortness of breath, dizziness, or syncope. This chest discomfort was different than the symptoms she had prior to her CABG. At that time she had pain in her neck and jaw, she did not have any chest pain. He also states this discomfort is different than the pain she gets from her fibromyalgia. Upon presentation to the emergency department her blood pressure was elevated at 194/78, pulse was 80. EKG showed sinus mechanism with no ST or T-wave abnormalities. Troponins were negative 3. She was given Nitropaste in the emergency department which relieved her chest discomfort. she did vomit one more time in the emergency department. Today she feels much better. No more episodes of vomiting. Denies any chest discomfort or shortness of breath. ROS: No fevers, chills or rigors, no cough, phlegm or expectoration, Positive for nausea and vomiting, no diarrhea, no hematuria, dysuria, Positive for joint pain from fibromyalgia no strokes or seizures, no skin lesions. EXAMINATION: Temperature 98.1F, pulse 63, respirations 18, blood pressure 126/52, oxygen saturation 97% on room air Patient seen and examined sitting up in her chair, no acute distress Lungs clear to auscultation bilaterally, no rhonchi, wheezing, or crackles appreciated Heart is regular, normal S1-S2, no murmurs, rubs or gallops appreciated, slight tenderness to palpation across the chest No elevated JVD No lower extremity edema Abdomen soft REVIEW OF LABS, ECG & MEDICAL DATA WBC 7.2, hemoglobin 12.7, potassium 3.9, BUNs 17, creatinine 0.9, magnesium 2.1, troponin negative 3 Total cholesterol 133, triglycerides 176, LDL 51, HDL 47 Twelve-lead EKG shows sinus mechanism, normal NH, narrow QRS, no ST-T changes Chest x-ray showed no acute cardiopulmonary process Past Medical History Past Medical History: Coronary Artery Disease (CAD), Chest Pain / Angina, Diabetes Mellitus, Eye Disorder, Fibromyalgia, GERD/Reflux, Hyperlipidemia, Hypertension, Myocardial Infarction ([place]), Osteoarthritis (OA), Skin Disorder, Vascular Disorder Additional Past Medical History / Comment(s): MIs x2, bilateral carotid artery disease, nephritis and had to receive hemodialysis twice-kidneys normal since, IDDM type II, neuropathy bilateral hands/feet, bilateral eye glaucoma/retinopa thy/retinal bleeds, diffuse arthritis, DDD, chronic low back pain with bilateral sciatica, recurrent buttock ulcerations, bronchitis, sinus problems, UTIs, past migraines, bladder leakage, unsteady gait. Last Myocardial Infarction Date:: 12/2017 History of Any Multi-Drug Resistant Organisms: None Reported Past Surgical History: Bariatric Surgery, Cholecystectomy, Coronary Bypass/CABG, Heart Catheterization, Tubal Ligation Additional Past Surgical History / Comment(s): 12/2017 CABG 3 vessel, lap ba nding, bilateral knee scopes, bilateral carpal tunnel releases, R eye has metal implant per pt d/t eyelid ligament problem, bilateral laser eye surgery for retinal bleeds, bilateral cataract removals/lens implants, bilateral hand trigger finger surgeries, EGD, colonoscopy, sinus surgery, pilonidal cystectomy, R temporal bx and mole removal (benign), R trunk benign mole removal, pain clinic procedures. Past Anesthesia/Blood Transfusion Reactions: No Reported Reaction Additional Past Anesthesia/Blood Transfusion Reaction / Comment(s): Pt has rece ived blood without reaction. Smoking Status: Former smoker - Past Family History Father Family Medical History: Cancer Additional Family Medical History / Comment(s): Pt does not recall type of cancer father had but it caused him to have an arm amputation. Mother Family Medical History: Diabetes Mellitus, Myocardial Infarction ([place]) Additional Family Medical History / Comment(s): Mother of a [place] at the age of 58yrs. Medications and Allergies Home Medications Medication Instructions Recorded Confirmed Type Ergocalciferol [Vitamin D2 50,000 unit PO SA 09/11/14 06/04/19 History (DRISDOL)] Latanoprost Ophth [Xalatan 0.005%] 1 drop RIGHT EYE HS 09/11/14 06/04/19 History Timolol 0.5% Ophth Soln [Timoptic 1 drop BOTH EYES BID 01/22/18 06/04/19 History 0.5% Ophth Soln] Clopidogrel [Plavix] 75 mg PO DAILY tab 02/03/18 06/04/19 Rx Multivitamins, Thera [Multivitamin 1 tab PO DAILY 07/19/18 06/04/19 History (formulary)] Ferrous Sulfate [Iron (65 MG 325 mg PO DAILY 11/29/18 06/04/19 History Elemental)] Fexofenadine HCl [Citlaly Allergy] 180 mg PO DAILY 11/29/18 06/04/19 History Fluticasone Nasal [place] [Flonase 1 spray EA NOSTRIL DAILY PRN 11/29/18 06/04/19 History Nasal [place]] Hydrocortisone [Hydrocortisone 1 applic TOPICAL DAILY PRN 11/29/18 06/04/19 History 0.05%] Metoprolol Tartrate [Lopressor] 25 mg PO BID 11/29/18 06/04/19 History Nitroglycerin Sl Tabs [Nitrostat] 0.4 mg SUBLINGUAL Q5M PRN 11/29/18 06/04/19 History metFORMIN HCL 500 mg PO DAILY 11/29/18 06/04/19 History Losartan Potassium [Cozaar] 25 mg PO DAILY 12/12/18 06/04/19 History Aspirin 81 mg PO HS 12/26/18 06/04/19 History Citalopram Hydrobromide [CeleXA] 20 mg PO DAILY 12/26/18 06/04/19 History Empagliflozin/Linagliptin 1 tab PO QAM 12/26/18 06/04/19 History [Glyxambi 10 mg-5 mg Tablet] HYDROcodone/APAP 5-325MG [[place] 2 tab PO BID PRN 12/26/18 06/04/19 History 5-325] Insulin Glargine [Lantus] 18 unit SQ HS 12/26/18 06/04/19 History Isosorbide Mononitrate ER [Imdur] 60 mg PO DAILY 01/23/19 06/04/19 History Polyethylene Glycol 3350 [Miralax] 17 gm PO DAILY PRN 01/23/19 06/04/19 History INSULIN LISPRO (humaLOG) [humaLOG] 16 units SQ TID 04/02/19 06/04/19 History Atorvastatin [Lipitor] 80 mg PO DAILY 06/04/19 06/04/19 History Furosemide [Lasix] 20 mg PO BID 06/04/19 06/04/19 History INSULIN LISPRO (humaLOG) [humaLOG] See Protocol SQ TID PRN 06/04/19 06/04/19 History Allergies Allergy/AdvReac Type Severity Reaction Status Date / Time diclofenac Allergy HIGH BLOOD Verified 06/04/19 11:52 SUGAR peanut Allergy PER Verified 06/04/19 11:52 ALLERGY TEST Penicillins Allergy ITCHING Verified 06/04/19 11:52 AND RED SKIN Physical Exam Vitals: Vital Signs Temp Pulse Pulse Resp BP BP BP 06/05/19 06:58 98.1 F 63 18 126/52 06/05/19 04:00 97.9 F 61 18 137/77 06/04/19 23:50 97.9 F 73 18 154/74 06/04/19 19:09 97.7 F 65 18 114/73 06/04/19 18:07 97.6 F 66 17 145/81 06/04/19 17:48 98.8 F 80 18 141/51 06/04/19 16:47 80 18 141/51 06/04/19 13:09 73 18 131/59 06/04/19 11:28 98.8 F 80 18 194/78 Pulse Ox 06/05/19 06:58 97 06/05/19 04:00 99 06/04/19 23:50 98 06/04/19 19:09 99 06/04/19 18:07 99 06/04/19 17:48 98 06/04/19 16:47 98 06/04/19 13:09 97 06/04/19 11:28 98 Intake and Output 06/04/19 06/05/19 06/05/19 22:59 06:59 14:59 Other: Voiding Method Toilet Toilet # Voids 1 1 Results 06/04/19 12:10 06/04/19 12:10 Cardiac Enzymes 06/04/19 06/04/19 06/04/19 Range/Units 12:10 12:10 17:45 AST 28 (14-36) U/L Troponin I <0.012 <0.012 (0.000-0.034) ng/mL 06/05/19 Range/Units 00:45 AST (14-36) U/L Troponin I <0.012 (0.000-0.034) ng/mL Coagulation 06/04/19 Range/Units 12:10 PT 10.1 (9.0-12.0) sec APTT 25.0 (22.0-30.0) sec Lipids 06/04/19 Range/Units 12:10 Triglycerides 176 H (<150) mg/dL Cholesterol 133 (<200) mg/dL HDL Cholesterol 47 (40-60) mg/dL CBC 06/04/19 Range/Units 12:10 WBC 7.2 (3.8-10.6) k/uL RBC 4.02 (3.80-5.40) m/uL Hgb 12.7 (11.4-16.0) gm/dL Hct 38.3 (34.0-46.0) % Plt Count 243 (150-450) k/uL Comprehensive Metabolic Panel 06/04/19 Range/Units 12:10 Sodium 141 (137-145) mmol/L Potassium 3.9 (3.5-5.1) mmol/L Chloride 110 H (98-107) mmol/L Carbon Dioxide 20 L (22-30) mmol/L BUN 17 (7-17) mg/dL Creatinine 0.89 (0.52-1.04) mg/dL Glucose 155 H (74-99) mg/dL Calcium 9.3 (8.4-10.2) mg/dL AST 28 (14-36) U/L ALT 27 (9-52) U/L Alkaline Phosphatase 90 (38-126) U/L Total Protein 7.3 (6.3-8.2) g/dL Albumin 3.8 (3.5-5.0) g/dL Current Medications Generic Name Dose Route Start Last Admin Trade Name Freq PRN Reason Stop Dose Admin Hydrocodone Bitart/Acetaminophen 2 each 06/04/19 18:01 06/04/19 20:43 [place] 5-325 PO 2 each BID PRN Administration Pain Aspirin 81 mg 06/04/19 21:00 06/04/19 20:45 Aspirin PO Not Given HS [facility] Atorvastatin Calcium 80 mg 06/05/19 09:00 Lipitor PO DAILY [facility] Citalopram Hydrobromide 20 mg 06/05/19 09:00 Celexa PO DAILY [facility] Clopidogrel Bisulfate 75 mg 06/05/19 09:00 Plavix PO DAILY [facility] Ergocalciferol 50,000 unit 06/09/19 12:00 Vitamin D2 PO Sa@1200 [facility] Ferrous Sulfate 325 mg 06/05/19 09:00 Feosol PO DAILY [facility] Fluticasone Propionate 1 spray 06/04/19 18:01 Flonase Nasal [place] EA NOSTRIL DAILY PRN Congestion Furosemide 20 mg 06/04/19 18:15 06/04/19 18:18 Lasix PO 20 mg BID@0900,1600 [facility] Administration Hydrocortisone 1 applic 06/04/19 18:01 Hydrocortisone 1% Cream TOPICAL DAILY PRN Skin Irritation Dobutamine HCl/Dextrose 500 mg 250 mls @ 35.38 mls/hr 06/05/19 08:51 / IV Solution IV 06/05/19 15:54 .Q7H4M ONE Protocol 10 MCG/KG/MIN Insulin Aspart 16 unit 06/04/19 18:30 06/05/19 08:14 Novolog SQ Not Given AC-TID [facility] Insulin Detemir 18 unit 06/04/19 21:00 06/04/19 20:44 Levemir SQ 18 unit HS [facility] Administration Isosorbide Mononitrate 60 mg 06/05/19 09:00 Imdur PO DAILY [facility] Latanoprost 1 drops 06/04/19 21:00 06/04/19 20:43 Xalatan 0.005% RIGHT EYE 1 drops HS [facility] Administration Loratadine 10 mg 06/05/19 09:00 Claritin PO DAILY [facility] Losartan Potassium 25 mg 06/05/19 09:00 Cozaar PO DAILY [facility] Metoprolol Tartrate 25 mg 06/04/19 21:00 06/04/19 20:43 Lopressor PO 25 mg BID [facility] Administration Multivitamins 1 each 06/05/19 09:00 Theragran PO DAILY [facility] Nitroglycerin 1 inch 06/04/19 18:00 06/05/19 05:40 Nitro-Bid Oint TOPICAL Not Given Q6HR [facility] Nitroglycerin 0.4 mg 06/04/19 13:27 Nitrostat SUBLINGUAL Q5M PRN Chest Pain Non-Formulary Medication 1 tab 06/05/19 09:00 Empagliflozin/Linagliptin [Glyxambi 10 Mg-5 Mg Tablet] PO QAM [facility] Polyethylene Glycol 17 gm 06/04/19 18:01 06/04/19 20:49 Miralax PO 17 gm DAILY PRN Administration Constipation Sodium Chloride 10 ml 06/04/19 21:00 06/04/19 20:44 Saline Flush IV 10 ml BID [facility] Administration Timolol Maleate 1 drops 06/04/19 21:00 06/04/19 20:43 Timoptic BOTH EYES 1 drops BID [facility] Administration Intake and Output 06/04/19 06/05/19 06/05/19 22:59 06:59 14:59 Other: Voiding Method Toilet Toilet # Voids 1 1 06/04/19 12:10 06/04/19 12:10
[2019-06-05] MEDS ORDERED: METOPROLOL TARTRATE 5 MG/5 ML VIAL IVP ONE (12:10)
--- NOTE | 2019-06-05 12:25 | P.STRESS ---
- Stress Test Note Stress Test Results/Findings: Exam Performed: dobutamine stress echo with con Exam Date: 06/05/19 Reason for Exam: CHEST PAIN Height: 5 ft 7 in Weight: 117.934 kg Protocol: DOBUTAMINE STRESS ECHO Stage: IV Duration of Exercise: 12:36 Resting Heart Rate: 59 Resting Blood Pressure: 168/73 Maximum Achieved Heart Rate: 132 Maximum Achieved Blood Pressure: 213/71 85% PMHR: 129 100% PMHR: 152 METS: N/A Technologist Comment: Stress Test Results/Findings: Baseline heart rate 59 beats a minute, Baseline blood pressure 160-73 mmHg Baseline 12-lead ECG shows sinus rhythm with normal ST segments Patient received dobutamine infusion per protocol. PVCs are noted. Patient complain of chest pain she became nauseous after dobutamine was turned off Peak heart rate 120 beats a minute mildly hypertensive response, 205/63 mmHg No ECG ms for ischemia occasional PVCs This line 2-D echo images are suboptimal and therefore Definity contrast was used to delineate the LV endocardial borders There was a stepwise augmentation in overall LV contractility without developing any wall motion normalities at the recovery regional and global LV systolic function remained normal Impression no ECG or echocardiographic evidence for ischemia during to between stress echo
[2019-06-05 12:32] LABS: Glucose,Whole Blood 136 mg/dL (75-99)
[2019-06-05] MEDS: METOPROLOL TARTRATE 25 MG TAB PO SCH (12:35)
[2019-06-05] MEDS: FUROSEMIDE 20 MG TAB PO SCH ×2 (12:35→17:39)
[2019-06-05] MEDS: TIMOLOL 0.5% OPHTH DROPS 5 ML BTL BOTH EYES SCH (12:39)
[2019-06-05 15:47] VITALS: BP 118/73; PULSE 63; TEMP 97.5
[2019-06-05 16:36] LABS: Glucose,Whole Blood 144 mg/dL (75-99)
--- NOTE | 2019-06-06 10:08 | DS ---
DISCHARGE SUMMARY Mrs. Akers is a 68-year-old female who presented with chest pain and tightness. She had underlying history of coronary artery disease along with multiple risk factors that include diabetes, hypertension, hypercholesterolemia, obesity, previous smoking and a positive family history. The patient was placed on observation and monitoring. Initial troponin and other labs were unremarkable. EKG did not show acute changes. Further troponin values remained less than 0.012. The patient was seen by Cardiology and she underwent a dobutamine stress echo testing which by EKG and echo did not show any changes consistent with ischemia during the testing and subsequently she is able to be discharged to home to continue on her previous home medications that include her aspirin 81 mg daily, atorvastatin 80 mg, citalopram 20, Plavix 75. She is on Glyxambi 10 mg-5 mg 1 every morning. She is on vitamin D, Drisdol 84904 units once a week on Saturdays, Citlaly 180 mg daily for sinuses, Flonase nasal 1 spray daily, and Lasix 20 mg twice a day. She is on [place] 5-325 two tablets daily for pain as needed, Hydrocortisone cream to affected areas. She is on 16 units of Humalog, lispro insulin before meals and she does have a scale at home. She is on Lantus/glargine insulin 18 units at bedtime, Isosorbide mononitrate ER 60 mg. She is on eye drops that consist of Xalatan 0.005% 1 drop in the right eye at bedtime, losartan 25 mg daily, metoprolol 25 mg twice a day, multivitamins, nitroglycerin sublingual for pain, MiraLAX 17 g daily for bowels. Timolol eyedrops 0.5% 1 drop in both eyes twice a day, and metformin 500 mg daily. She is to follow up with myself and [facility] over the next week to 2 weeks. Return to the ER if any severe pain should reoccur. DISCHARGE DIAGNOSIS: 1. Severe chest pain. 2. Other diagnoses as mentioned in her past medical history with multiple risk factors as previously delineated. 3. Continue with a diabetic diet and activities as tolerated. MMODL / IJN: [id number] / MTDD
== END 2019-06-05 18:12 | disposition home or self-care (01) ==
LOC: EC 11:24 → 1SOBS 13:27
PROVIDERS: ADMIT Internal Medicine; ATTEND Internal Medicine
DX: R07.89 Other chest pain (principal); R11.2 Nausea with vomiting, unspecified; R61 Generalized hyperhidrosis; I25.10 Atherosclerotic heart disease of native coronary artery without angina pectoris; M79.7 Fibromyalgia; E78.00 Pure hypercholesterolemia, unspecified; K21.9 Gastro-esophageal reflux disease without esophagitis; I10 Essential (primary) hypertension; E78.5 Hyperlipidemia, unspecified; M19.90 Unspecified osteoarthritis, unspecified site; H40.9 Unspecified glaucoma; E11.319 Type 2 diabetes mellitus with unspecified diabetic retinopathy without macular edema; I65.23 Occlusion and stenosis of bilateral carotid arteries; G43.909 Migraine, unspecified, not intractable, without status migrainosus; E11.42 Type 2 diabetes mellitus with diabetic polyneuropathy; G89.29 Other chronic pain; M54.41 Lumbago with sciatica, right side; M54.42 Lumbago with sciatica, left side; R32 Unspecified urinary incontinence; E66.9 Obesity, unspecified; Z68.41 Body mass index [BMI] 40.0-44.9, adult; R26.81 Unsteadiness on feet; Z79.4 Long term (current) use of insulin; Z79.02 Long term (current) use of antithrombotics/antiplatelets; Z79.82 Long term (current) use of aspirin; Z79.891 Long term (current) use of opiate analgesic; Z79.899 Other long term (current) drug therapy; Z88.0 Allergy status to penicillin; Z88.6 Allergy status to analgesic agent; Z91.010 Allergy to peanuts; Z95.1 Presence of aortocoronary bypass graft; Z98.51 Tubal ligation status; Z90.49 Acquired absence of other specified parts of digestive tract; I25.2 Old myocardial infarction; Z87.891 Personal history of nicotine dependence; Z98.84 Bariatric surgery status; Z98.42 Cataract extraction status, left eye; Z98.41 Cataract extraction status, right eye; Z96.1 Presence of intraocular lens; Z87.440 Personal history of urinary (tract) infections; Z87.448 Personal history of other diseases of urinary system; Z87.2 Personal history of diseases of the skin and subcutaneous tissue; Z87.09 Personal history of other diseases of the respiratory system; Z83.3 Family history of diabetes mellitus; Z82.49 Family history of ischemic heart disease and other diseases of the circulatory system; Z80.9 Family history of malignant neoplasm, unspecified
CPT/HCPCS: 96374; 99285; 36415; 93005; 93351; 80061; 80053; 83735; 84484 ×2; 85025; 85610; 85730; 71046; G0378 ×2; J1250; J2405; Q9950

== ENCOUNTER 2019-06-09 06:58 | Observation (INO) | payer OTHER, MEDICARE ==
--- NOTE | 2019-06-09 07:04 | ED ---
Chest Pain HPI - General Chief Complaint: Chest Pain Stated Complaint: Chest pain Time Seen by Provider: 06/09/19 07:04 - History of Present Illness Initial Comments: 70-year-old female with extensive past medical history including myocardial infarction 2, previous CABG, diabetes high blood pressure dyslipidemia. Patient recently discharged from [facility] for chest pain x 1 day. Negative stress test, echocardiogram. Patient states that today, just prior to 4 AM she was up she states that she began having an sensation of a pinched the left side of the chest and pain in the left arm. Patient denies pressure, denies shortness of breath, denies ripping tearing back pain. Patient states that she took 3 nitros total as well as 12-81 mg aspirins she states that despite this the pain persisted while at rest. Patient denies any leg swelling, history of blood clots or DVTs. Patient states she is compliant with her anticoagulation therapy. Patient states she has had some nausea denies vomiting. Remaining review of system negative. Upon arrival patient appears stable no signs of acute distress. On arrival patient's vital signs are stable. - Related Data Home Medications Medication Instructions Recorded Confirmed Ergocalciferol [Vitamin D2 50,000 unit PO SA 09/11/14 06/09/19 (DRISDOL)] Latanoprost Ophth [Xalatan 0.005%] 1 drop RIGHT EYE HS 09/11/14 06/09/19 Timolol 0.5% Ophth Soln [Timoptic 1 drop BOTH EYES BID 01/22/18 06/09/19 0.5% Ophth Soln] Multivitamins, Thera [Multivitamin 1 tab PO DAILY 07/19/18 06/09/19 (formulary)] Ferrous Sulfate [Iron (65 MG 325 mg PO DAILY 11/29/18 06/09/19 Elemental)] Fexofenadine HCl [Citlaly Allergy] 180 mg PO DAILY 11/29/18 06/09/19 Fluticasone Nasal [place] [Flonase 1 spray EA NOSTRIL DAILY PRN 11/29/18 06/09/19 Nasal [place]] Hydrocortisone [Hydrocortisone 1 applic TOPICAL DAILY PRN 11/29/18 06/09/19 0.05%] Metoprolol Tartrate [Lopressor] 25 mg PO BID 11/29/18 06/09/19 Nitroglycerin Sl Tabs [Nitrostat] 0.4 mg SUBLINGUAL Q5M PRN 11/29/18 06/09/19 metFORMIN HCL 500 mg PO DAILY 11/29/18 06/09/19 Losartan Potassium [Cozaar] 25 mg PO DAILY 12/12/18 06/09/19 Aspirin 81 mg PO HS 12/26/18 06/09/19 Citalopram Hydrobromide [CeleXA] 20 mg PO DAILY 12/26/18 06/09/19 Empagliflozin/Linagliptin 1 tab PO QAM 12/26/18 06/09/19 [Glyxambi 10 mg-5 mg Tablet] HYDROcodone/APAP 5-325MG [[place] 2 tab PO BID PRN 12/26/18 06/09/19 5-325] Insulin Glargine [Lantus] 18 unit SQ HS 12/26/18 06/09/19 Isosorbide Mononitrate ER [Imdur] 60 mg PO DAILY 01/23/19 06/09/19 Polyethylene Glycol 3350 [Miralax] 17 gm PO DAILY PRN 01/23/19 06/09/19 INSULIN LISPRO (humaLOG) [humaLOG] 16 units SQ TID 04/02/19 06/09/19 Atorvastatin [Lipitor] 80 mg PO DAILY 06/04/19 06/09/19 Furosemide [Lasix] 20 mg PO BID 06/04/19 06/09/19 INSULIN LISPRO (humaLOG) [humaLOG] See Protocol SQ TID PRN 06/04/19 06/09/19 Previous Rx's Medication Instructions Recorded Clopidogrel [Plavix] 75 mg PO DAILY tab 02/03/18 Allergies Allergy/AdvReac Type Severity Reaction Status Date / Time diclofenac Allergy HIGH BLOOD Verified 06/09/19 07:21 SUGAR peanut Allergy PER Verified 06/09/19 07:21 ALLERGY TEST Penicillins Allergy ITCHING Verified 06/09/19 07:21 AND RED SKIN Review of Systems ROS Statement: Those systems with pertinent positive or pertinent negative responses have been documented in the HPI. ROS Other: All systems not noted in ROS Statement are negative. EKG Findings - EKG Comments: EKG Findings:: Ventricular rate 70 bpm, UT interval 176 ms, QR administration 82 ms, QT/QTC 398/429 ms[address]. No ST elevation or depression appreciated.EKG interpretted by myself and reviewd by my attending, Dr. Domingo. Past Medical History Past Medical History: Coronary Artery Disease (CAD), Chest Pain / Angina, Diabetes Mellitus, Eye Disorder, Fibromyalgia, GERD/Reflux, Hyperlipidemia, Hypertension, Myocardial Infarction ([place]), Osteoarthritis (OA), Skin Disorder, Vascular Disorder Additional Past Medical History / Comment(s): MIs x2, bilateral carotid artery disease, nephritis and had to receive hemodialysis twice-kidneys normal since, IDDM type II, neuropathy bilateral hands/feet, bilateral eye glaucoma/retinopathy/retinal bleeds, diffuse arthritis, DDD, chronic low back pain with bilateral sciatica, recurrent buttock ulcerations, bronchitis, sinus problems, UTIs, past migraines, bladder leakage, unsteady gait. Last Myocardial Infarction Date:: 12/2017 History of Any Multi-Drug Resistant Organisms: None Reported Past Surgical History: Bariatric Surgery, Cholecystectomy, Coronary Bypass/CABG, Heart Catheterization, Tubal Ligation Additional Past Surgical History / Comment(s): 12/2017 CABG 3 vessel, lap banding, bilateral knee scopes, bilateral carpal tunnel releases, R eye has metal implant per pt d/t eyelid ligament problem, bilateral laser eye surgery for retinal bleeds, bilateral cataract removals/lens implants, bilateral hand trigger finger surgeries, EGD, colonoscopy, sinus surgery, pilonidal cystectomy, R temporal bx and mole removal (benign), R trunk benign mole removal, pain clinic procedures. Past Anesthesia/Blood Transfusion Reactions: No Reported Reaction Additional Past Anesthesia/Blood Transfusion Reaction / Comment(s): Pt has received blood without reaction. Smoking Status: Former smoker - Past Family History Father Family Medical History: Cancer Additional Family Medical History / Comment(s): Pt does not recall type of cancer father had but it caused him to have an arm amputation. Mother Family Medical History: Diabetes Mellitus, Myocardial Infarction ([place]) Additional Family Medical History / Comment(s): Mother of a [place] at the age of 58yrs. General Exam - General Exam Comments Initial Comments: General: The patient is awake and alert, in no distress. Emesis bag in hand. Eye: +3 mm pupils are equal, round and reactive to light, extra-ocular movements are intact. No nystagmus. There is normal conjunctiva bilaterally. No signs of icterus. Ears, nose, mouth and throat: There are moist mucous membranes and no oral lesions. Neck: The neck is supple, there is no tenderness or JVD. Cardiovascular: There is a regular rate and rhythm. No murmur, rub or gallop is appreciated. Respiratory: Lungs are clear to auscultation, respirations are non-labored, breath sounds are equal. No wheezes, stridor, rales, or rhonchi. Gastrointestinal: Soft, non-distended, non-tender abdomen without masses or organomegaly noted. There is no rebound or guarding present. Musculoskeletal: Normal ROM, no tenderness. Strength 5/5. Sensation intact. Radial and DP pulses equal bilaterally 2+. Neurological: A&O x 3. CN II-XII intact, There are no obvious motor or sensory deficits. Coordination appears grossly intact. Speech is normal. Skin: Skin is warm and dry and no rashes or lesions are noted. No LE edme.a Psychiatric: Cooperative, appropriate mood & affect, normal judgment. Course Vital Signs 06/09/19 06/09/19 07:00 08:00 Temperature 99.0 F Pulse Rate 70 66 Respiratory 18 16 Rate Blood Pressure 143/60 137/51 O2 Sat by Pulse 99 97 Oximetry - Reevaluation(s) Reevaluation #1: Upon reevaluation and discussing laboratory studies with patient she states that the Nitropaste had helped alleviate the chest pain denies current symptoms. Upon clearance at the telemetry as well as patient's vital signs are stable. 125/55 for blood pressure, heart rate 70, 100% on room air. In normal sinus on the monitor. Patient continues to appear well. Will admit. Chest Pain MDM - [facility] 68-year-old female presenting for chest pain. History of unstable angina. Patient has nitroglycerin at home. She took 3 tablets prior to arrival. Patient had also taken 12 tablets of 81 mg aspirin. Slow to take not within toxic levels. I did not provide aspirin when she arrived at the emergency department given the amount she had taken between 4 and 7 AM. Upon arrival patient is no ST elevation or depression. She does have current symptoms. No shortness of breath. Chest x-ray within normal limits. No signs of fluid ove rload on examination. Lungs clear. Troponin negative. Will trend. At this time given patient's age and risk factors, persistent and increasing frequency of symptoms despite recent negative echocardiogram and stress testing I recommend admission for further cardiology evaluation. Patient is agreeable to admission. Dr. Christensen states he spoke with Dr. Osborn, cardiology on consult. Patient remains a hold in the ER however, admitting provider will resume further care, Disposition Clinical Impression: Unstable angina, Chest pain, Left arm pain Disposition: ADMITTED IP TO THIS HOSP Condition: Stable Is patient prescribed a controlled substance at d/c from ED?: No Referrals: Tim Osborn MD [Primary Care Provider] - 1-2 days Time of Disposition: 08:28 Decision to Admit Reason: Admit from EC Decision Date: 06/09/19 Decision Time: 08:28
[2019-06-09] MEDS ORDERED: NITROGLYCERIN OINT 1 INCH/GM PACKET TOPICAL STA (07:15)
[2019-06-09 07:19] LABS: Basophils % (A) 1 %; Eosinophils # (A) 0.4 k/uL (0-0.7); Eosinophils % (A) 5 %; HCT 37.8 % (34.0-46.0); HGB 12.5 gm/dL (11.4-16.0); Lymphocytes # (A) 1.7 k/uL (1.0-4.8); Lymphocytes % (A) 25 %; MCH 32.1 pg (25.0-35.0); MCHC 33.1 g/dL (31.0-37.0); Mean Platelet Volume 6.5; Monocytes # (A) 0.2 k/uL (0-1.0); Monocytes % (A) 3 %; Neutrophils # (A) 4.4 k/uL (1.3-7.7); Neutrophils % (A) 64 %; Platelet Count 240 k/uL (150-450); RDW 13.8 % (11.5-15.5); WBC 6.9 k/uL (3.8-10.6)
--- NOTE | 2019-06-09 07:33 | XR ---
EXAMINATION TYPE: XR chest 2V DATE OF EXAM: 06/09/2019 COMPARISON: 06/04/2019 INDICATION: Chest discomfort history of CABG TECHNIQUE: Frontal and lateral views of the chest are obtained. FINDINGS: The heart size is normal. The pulmonary vasculature is normal. The lungs are clear. Sternotomy wires are present from prior CABG IMPRESSION: 1. No acute pulmonary process.
[2019-06-09 07:34] LABS: Albumin 3.9 g/dL (3.5-5.0); Calcium 9.4 mg/dL (8.4-10.2); Magnesium 2.1 mg/dL (1.6-2.3); Potassium 4.4 mmol/L (3.5-5.1); Salicylate 3.5 mg/dL; Total Bilirubin 0.8 mg/dL (0.2-1.3); Total Protein 7.5 g/dL (6.3-8.2)
[2019-06-09 07:41] LABS: INR 0.9 (<1.2); Partial Thromboplastin Time 22.3 sec (22.0-30.0)
[2019-06-09] MEDS ORDERED: NITROGLYCERIN SL TABS 0.4 MG TAB SUBLINGUAL PRN ×2 (08:25→10:45)
[2019-06-09] MEDS ORDERED: NON-FORMULARY DRUG (Insulin Lispro (Humalog) 0 UNITS) SQ PRN (10:45)
[2019-06-09] MEDS ORDERED: POLYETHYLENE GLYCOL 3350 17 GM POWD.PACK PO PRN (10:45)
[2019-06-09] MEDS ORDERED: HYDROCORTISONE 1% CREAM 30 GM TUBE TOPICAL PRN (11:18)
[2019-06-09] MEDS ORDERED: FLUTICASONE 50MCG/SPRAY NASAL 16GM EA NOSTRIL PRN (11:18)
[2019-06-09] MEDS ORDERED: HYDROcodone/APAP 5-325MG 1 EACH TAB PO PRN (11:18)
[2019-06-09 11:37] LABS: Glucose,Whole Blood 142 mg/dL (75-99)
[2019-06-09] MEDS ORDERED: ERGOCALCIFEROL 50,000 UNIT CAP PO SCH (12:00)
--- NOTE | 2019-06-09 12:12 | P.CRDCN ---
History of Present Illness Consult date: 06/09/19 Chief complaint: Chest pain History of present illness: This is a pleasant 68-year-old female patient who sees Dr. Juarez as an outpatient with history of coronary artery disease and prior coronary artery bypass grafting, diabetes, hypertension, dyslipidemia, and obesity, presented to the hospital again complaining of chest discomfort. In December 2017, she was admitted to the hospital with acute non-ST patient myocardial infarction. At that point she underwent a heart catheterization and that revealed critical disease involving the left main coronary artery with severe triple-vessel CAD. Subsequently she underwent CABG 3. She received CUMMINGS to LAD, SVG to PDA, and SVG to OM. She has done well until earlier this month when she presented to the hospital complaining of chest discomfort and she was admitted to the observation unit. At that point she was ruled out for acute coronary event. She underwent dobutamine stress echocardiogram and that was unremarkable and hence she was discharged home. She presented to the hospital again complaining of chest discomfort. The patient stated that she was in her usual state of health sitting at home waiting for her to come home when she started experiencing discomfort mainly over the left side of the chest, with some radiation to the arm and left shoulder, and without any associated symptoms of shortness of breath, sweating, dizziness, heart racing, or syncope. She took 3 nitroglycerin without improvement in her symptoms and because of that she decided to come to the emergency room. The EKG showed sinus rhythm without any significant ST or T-wave abnormalities. She had one set of enzymes came in to be unremarkable. The chest x-ray did not show any acute abnormalities. The patient stated that she is chest pain-free at this moment. She is on maximize medical treatment at home. Past Medical History Past Medical History: Coronary Artery Disease (CAD), Chest Pain / Angina, Diabetes Mellitus, Eye Disorder, Fibromyalgia, GERD/Reflux, Hyperlipidemia, Hypertension, Myocardial Infarction ([place]), Osteoarthritis (OA), Skin Disorder, Vascular Disorder Additional Past Medical History / Comment(s): MIs x2, bilateral carotid artery disease, nephritis and had to receive hemodialysis twice-kidneys normal since, IDDM type II, neuropathy bilateral hands/feet, bilateral eye glaucoma/retinopathy/retinal bleeds, diffuse arthritis, DDD, chronic low back pain with bilateral sciatica, recurrent buttock ulcerations, bronchitis, sinus problems, UTIs, past migraines, bladder leakage, unsteady gait. Last Myocardial Infarction Date:: 12/2017 History of Any Multi-Drug Resistant Organisms: None Reported Past Surgical History: Bariatric Surgery, Cholecystectomy, Coronary Bypass/CABG, Heart Catheterization, Tubal Ligation Additional Past Surgical History / Comment(s): 12/2017 CABG 3 vessel, lap andres ng, bilateral knee scopes, bilateral carpal tunnel releases, R eye has metal implant per pt d/t eyelid ligament problem, bilateral laser eye surgery for retinal bleeds, bilateral cataract removals/lens implants, bilateral hand trigger finger surgeries, EGD, colonoscopy, sinus surgery, pilonidal cystectomy, R temporal bx and mole removal (benign), R trunk benign mole removal, pain clinic procedures. Past Anesthesia/Blood Transfusion Reactions: No Reported Reaction Additional Past Anesthesia/Blood Transfusion Reaction / Comment(s): Pt has received blood without reaction. Smoking Status: Former smoker - Past Family History Father Family Medical History: Cancer Additional Family Medical History / Comment(s): Pt does not recall type of can cer father had but it caused him to have an arm amputation. Mother Family Medical History: Diabetes Mellitus, Myocardial Infarction ([place]) Additional Family Medical History / Comment(s): Mother of a [place] at the age of 58yrs. Medications and Allergies Home Medications Medication Instructions Recorded Confirmed Type Ergocalciferol [Vitamin D2 50,000 unit PO SA 09/11/14 06/09/19 History (DRISDOL)] Latanoprost Ophth [Xalatan 0.005%] 1 drop RIGHT EYE HS 09/11/14 06/09/19 History Timolol 0.5% Ophth Soln [Timoptic 1 drop BOTH EYES BID 01/22/18 06/09/19 History 0.5% Ophth Soln] Clopidogrel [Plavix] 75 mg PO DAILY tab 02/03/18 06/09/19 Rx Multivitamins, Thera [Multivitamin 1 tab PO DAILY 07/19/18 06/09/19 History (formulary)] Ferrous Sulfate [Iron (65 MG 325 mg PO DAILY 11/29/18 06/09/19 History Elemental)] Fexofenadine HCl [Citlaly Allergy] 180 mg PO DAILY 11/29/18 06/09/19 History Fluticasone Nasal [place] [Flonase 1 spray EA NOSTRIL DAILY PRN 11/29/18 06/09/19 History Nasal [place]] Hydrocortisone [Hydrocortisone 1 applic TOPICAL DAILY PRN 11/29/18 06/09/19 History 0.05%] Metoprolol Tartrate [Lopressor] 25 mg PO BID 11/29/18 06/09/19 History Nitroglycerin Sl Tabs [Nitrostat] 0.4 mg SUBLINGUAL Q5M PRN 11/29/18 06/09/19 History metFORMIN HCL 500 mg PO DAILY 11/29/18 06/09/19 History Losartan Potassium [Cozaar] 25 mg PO DAILY 12/12/18 06/09/19 History Aspirin 81 mg PO HS 12/26/18 06/09/19 History Citalopram Hydrobromide [CeleXA] 20 mg PO DAILY 12/26/18 06/09/19 History Empagliflozin/Linagliptin 1 tab PO QAM 12/26/18 06/09/19 History [Glyxambi 10 mg-5 mg Tablet] HYDROcodone/APAP 5-325MG [[place] 2 tab PO BID PRN 12/26/18 06/09/19 History 5-325] Insulin Glargine [Lantus] 18 unit SQ HS 12/26/18 06/09/19 History Isosorbide Mononitrate ER [Imdur] 60 mg PO DAILY 01/23/19 06/09/19 History Polyethylene Glycol 3350 [Miralax] 17 gm PO DAILY PRN 01/23/19 06/09/19 History INSULIN LISPRO (humaLOG) [humaLOG] 16 units SQ TID 04/02/19 06/09/19 History Atorvastatin [Lipitor] 80 mg PO DAILY 06/04/19 06/09/19 History Furosemide [Lasix] 20 mg PO BID 06/04/19 06/09/19 History INSULIN LISPRO (humaLOG) [humaLOG] See Protocol SQ TID PRN 06/04/19 06/09/19 History Allergies Allergy/AdvReac Type Severity Reaction Status Date / Time diclofenac Allergy HIGH BLOOD Verified 06/09/19 07:21 SUGAR peanut Allergy PER Verified 06/09/19 07:21 ALLERGY TEST Penicillins Allergy ITCHING Verified 06/09/19 07:21 AND RED SKIN Physical Exam Vitals: Vital Signs Temp Pulse Pulse Resp BP BP Pulse Ox 06/09/19 11:30 97.4 F L 66 18 139/78 99 06/09/19 10:00 63 18 117/56 98 06/09/19 09:00 65 18 122/50 97 06/09/19 08:00 66 16 137/51 97 06/09/19 07:00 99.0 F 70 18 143/60 99 Intake and Output 06/08/19 06/09/19 06/09/19 22:59 06:59 14:59 Other: Weight 118.841 kg - Constitutional General appearance: no acute distress - Respiratory Respiratory: bilateral: CTA - Cardiovascular Rhythm: regular Heart sounds: normal: S1, S2 Results 06/09/19 07:08 06/09/19 07:08 Cardiac Enzymes 06/09/19 06/09/19 Range/Units 07:08 07:08 AST 25 (14-36) U/L Troponin I <0.012 (0.000-0.034) ng/mL Coagulation 06/09/19 Range/Units 07:08 PT 10.0 (9.0-12.0) sec APTT 22.3 (22.0-30.0) sec CBC 06/09/19 Range/Units 07:08 WBC 6.9 (3.8-10.6) k/uL RBC 3.90 (3.80-5.40) m/uL Hgb 12.5 (11.4-16.0) gm/dL Hct 37.8 (34.0-46.0) % Plt Count 240 (150-450) k/uL Comprehensive Metabolic Panel 06/09/19 Range/Units 07:08 Sodium 139 (137-145) mmol/L Potassium 4.4 (3.5-5.1) mmol/L Chloride 107 (98-107) mmol/L Carbon Dioxide 21 L (22-30) mmol/L BUN 42 H (7-17) mg/dL Creatinine 1.29 H (0.52-1.04) mg/dL Glucose 187 H (74-99) mg/dL Calcium 9.4 (8.4-10.2) mg/dL AST 25 (14-36) U/L ALT 30 (9-52) U/L Alkaline Phosphatase 92 (38-126) U/L Total Protein 7.5 (6.3-8.2) g/dL Albumin 3.9 (3.5-5.0) g/dL Current Medications Generic Name Dose Route Start Last Admin Trade Name Freq PRN Reason Stop Dose Admin Hydrocodone Bitart/Acetaminophen 2 each 06/09/19 11:18 [place] 5-325 PO BID PRN Pain Aspirin 325 mg 06/10/19 09:00 Aspirin PO DAILY [facility] Aspirin 81 mg 06/09/19 21:00 Aspirin PO HS [facility] Atorvastatin Calcium 80 mg 06/09/19 10:45 Lipitor PO DAILY [facility] Citalopram Hydrobromide 20 mg 06/09/19 11:00 Celexa PO DAILY [facility] Clopidogrel Bisulfate 75 mg 06/09/19 11:00 Plavix PO DAILY [facility] Ergocalciferol 50,000 unit 06/09/19 12:00 Vitamin D2 PO SA [facility] Ferrous Sulfate 325 mg 06/10/19 09:00 Feosol PO DAILY [facility] Fluticasone Propionate 1 spray 06/09/19 11:18 Flonase Nasal [place] EA NOSTRIL DAILY PRN Congestion Furosemide 20 mg 06/09/19 16:00 Lasix PO BID@0900,1600 [facility] Insulin Aspart 16 unit 06/09/19 12:30 Novolog SQ AC-TID [facility] Insulin Detemir 18 unit 06/09/19 21:00 Levemir SQ HS [facility] Isosorbide Mononitrate 60 mg 06/10/19 09:00 Imdur PO DAILY [facility] Latanoprost 1 drops 06/09/19 21:00 Xalatan 0.005% RIGHT EYE HS [facility] Loratadine 10 mg 06/10/19 09:00 Claritin PO DAILY [facility] Losartan Potassium 25 mg 06/10/19 09:00 Cozaar PO DAILY [facility] Metformin HCl 500 mg 06/10/19 07:30 Glucophage PO W/BRKFST [facility] Metoprolol Tartrate 25 mg 06/09/19 21:00 Lopressor PO BID [facility] Multivitamins 1 each 06/10/19 09:00 Theragran PO DAILY [facility] Nitroglycerin 0.4 mg 06/09/19 08:25 Nitrostat SUBLINGUAL Q5M PRN Chest Pain Nitroglycerin 0.4 mg 06/09/19 10:45 Nitrostat SUBLINGUAL Q5M PRN Chest Pain Non-Formulary Medication 1 tab 06/10/19 09:00 Empagliflozin/Linagliptin [Glyxambi 10 Mg-5 Mg Tablet] PO QAM [place] Non-Formulary Medication 2 - 10 units 06/09/19 10:45 Insulin Lispro (Humalog) SQ TID PRN Blood Sugar - High Non-Formulary Medication 1 applic 06/09/19 11:18 Hydrocortisone [Hydrocortisone 0.05%] TOPICAL DAILY PRN Skin Irritation Polyethylene Glycol 17 gm 06/09/19 10:45 Miralax PO DAILY PRN Constipation Timolol Maleate 1 drops 06/09/19 21:00 Timoptic BOTH EYES BID [place] Intake and Output 06/08/19 06/09/19 06/09/19 22:59 06:59 14:59 Other: Weight 118.841 kg Patient Weight 06/10/19 06:59 Weight 118.841 kg 06/09/19 07:08 06/09/19 07:08 Assessment and Plan Assessment: Assessment #1 recurrent episodes of atypical chest discomfort #2 CAD and status post CABG #3 diabetes type 2 #4 hypertension #5 dyslipidemia Plan #1 the patient has been chest pain-free since she was admitted #2 acute coronary syndrome to be ruled out #3 follow-up with the serial cardiac enzymes #4 obtain an echocardiogram was Doppler #5 further recommendation to follow. I would advise monitoring the patient for additional 24 hours.
--- NOTE | 2019-06-09 12:59 | HP ---
HISTORY AND PHYSICAL ATTENDING PHYSICIAN: Dr. Osborn Dictating the admission history and physical by Dr. Can in the temporary absence of Dr. Osborn on the weekend. NEW DATA: She is a 68-year-old white female date of 1950 and she will be on 152 bed 1 observation status. She is 5 foot 7 inches, weight 118.841 kg with the underlying BMI 41, which is obese. The BSA is 2.27 m2. ALLERGY: DICLOFENAC, PEANUTS, PENICILLIN. CHIEF COMPLAINT: She presented to the emergency room with chief complaint of chest pain with precordial left side related and radiated to the back and back and shoulder and neck. She took 3 nitroglycerin sublingual with no relief at home and at that time, she called the EMS who brought her to the ER at [facility]. The patient has underlying risk factor of diabetes mellitus type 2, on insulin as well as oral hypoglycemic agent and she had 3 vessel bypass graft as well as previous MT in the past. She has a history of hypertension and dyslipidemia as well as other cofactor of risk factors. PAST MEDICAL HISTORY: She had a history of obesity and underwent lap band surgery by Dr. Teran. She has coronary bypass graft x3 and done in December of 2017. She has diabetes mellitus type 2 insulin and oral hypoglycemics followed by Dr. Stefania Marcus and currently by Dr. Mckeon the mammalogist. She had last Tuesday presentation to the emergency room with chest pain similar. She underwent stress echo as well as monitoring and released to be seeing Dr. Osborn as well as Dr. Juarez. She had fibromyalgia as well as chronic as well as underlying diabetic neuropathy. 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 She has history of acute renal failure 3-4 years ago and required dialysis twice or 3 times and subsequently followed by Dr. Jimenez, the director apparel. She sees her twice a year and she supposed to see her in September 2019 and she has underlying chronic kidney disease. FAMILY HISTORY: She is and lives with her . She is diabetic and she has no children and her also was diabetic. SOCIAL HISTORY: Smoking history: She started smoking at age of [age] years old and subsequently stopped smoking in the early 40s and she was smoking pack per 3 days. REVIEW OF SYSTEM: Neuropsychiatry, she is on citalopram, indicating that she may have underlying anxiety and depression added to the fibromyalgia, but no history of stroke. Cardiovascular: She has a history of myocardial infarction and bypass graft and currently recurrent angina or chest pain with the underlying risk factor of hypertension and hyperlipidemia as well and obesity. Respiratory: She has no cough or expectoration and no wheezes. On the GI, she has history of band surgery by Dr. Teran for obesity and still obese, but she lost 100 pound as she stated. On the musculoskeletal: She has gait abnormalities and need for balancing and she needs to use a cane and that could be associated with the diabetic neuropathy of the lower extremities. Endocrine: She has diabetes mellitus type 2. Musculoskeletal and orthopedic: She had arthritis, upper and lower and the spine. The rest of the bullets of the review of systems was noncontributory. PHYSICAL EXAMINATION: The underlying examination on physical exam: Patient seen, evaluated in an emergency room. Her vital signs 97.4 oral and a pulse rate 66, respiratory rate 18, blood pressure was 139/78 with a mean 98 and pulse ox was 99 percent. PHYSICAL EXAM: The patient is conscious, alert, oriented x3, able to give a detailed history and differentiation between the pain of her chest and radiated to the back versus the fibromyalgia. HEENT: The head was normocephalic, atraumatic. Pupil was equal, reactive. She had mild arcus senilis as well as she had the right eyelid abnormalities and she had several surgeries on that right eyelid. Sclerae nonicteric. Conjunctivae were pink. The oropharynx she had missing a few teeth, but uvula midline. No facial asymmetry. Nose was negative and hearing was normal. Neck was supple. No JVD. No thyromegaly. No lymphadenopathy and she had some tenderness on the left side of the neck with the some discomfort in the back as well as the left shoulder. CHEST: Clear to auscultation and percussion and she had a midline incision for the vessel bypass x3 and she had no lumpectomy and she is getting her mammogram yearly. No evidence of lymph nodes in the supraclavicular area. In the heart PMI in the 5th intercostal space outside midclavicular line. She had normal S1, S2. No gallop. Abdomen was soft, positive bowel sounds and obese with the previous history of lap band was done by Dr. Teran. Genitourinary: She had intermittent urinary incontinence. She is wearing a pad. EXTREMITIES: No edema. Positive pulses and she had perfusion of both lower extremities with normal dorsalis pedis and posterior tibial and popliteal and femoral. Able to move upper and lower extremities normally with normal reflexes. ASSESSMENT: 1. Coronary artery disease. Atherosclerotic heart disease associated chest pain and precordial and suggestive of unstable angina in spite patient had 3 vessel bypass graft. 2. Recurrence of this chest pain which has been lost Tuesday, admitted to the hospital and discharged subsequently. 3. Diabetes mellitus type 2, on oral and insulin hypoglycemic agent and we will obtain the hemoglobin A1c and she followed by the mammalogist. 4. Underlying hyperlipidemia and hypertension are controlled. 5. Obesity with a BMI of 40. 6. Fibromyalgia. PLAN: Patient will be seen today by Dr. Young who will be monitoring as well and will obtain the serial cardiac enzyme and continue monitoring in the observation and if any event, the patient will be planned for cardiac catheterization if abnormalities has been discovered. The patient will be in observation in the hospital until we see how her chest pain behaving as well as I will follow the patient until Tuesday and Tuesday will be followed by Dr. Osborn the attending. MMJONNIEL / ARGELIAN: [id number] /
[2019-06-09] MEDS: INSULIN ASPART (NovoLOG) 100 UNIT/ML VIAL SQ SCH ×4 (14:05→20:37)
[2019-06-09] MEDS: ATORVASTATIN 80 MG TAB PO SCH (14:09)
[2019-06-09] MEDS: CITALOPRAM HYDROBROMIDE 20 MG TAB PO SCH (14:09)
[2019-06-09] MEDS: CLOPIDOGREL 75 MG TAB PO SCH (14:10)
[2019-06-09 16:33] LABS: Glucose,Whole Blood 178 mg/dL (75-99)
[2019-06-09] MEDS: FUROSEMIDE 20 MG TAB PO SCH (16:36)
[2019-06-09] MEDS ORDERED: ONDANSETRON 4 MG/2 ML VIAL IVP PRN (17:34)
[2019-06-09] MEDS: METOPROLOL TARTRATE 25 MG TAB PO SCH (20:30)
[2019-06-09 20:32] LABS: Glucose,Whole Blood 205 mg/dL (75-99)
[2019-06-09] MEDS: TIMOLOL 0.5% OPHTH DROPS 5 ML BTL BOTH EYES SCH (20:32)
[2019-06-09] MEDS ORDERED: ASPIRIN 81 MG PO SCH (21:00)
[2019-06-09] MEDS ORDERED: LATANOPROST 0.005% OPHTH DROPS 2.5 ML BTL RIGHT EYE SCH (21:00)
[2019-06-09] MEDS ORDERED: INSULIN DETEMIR (LEVEMIR) 100 UNIT/ML SYR SQ SCH (21:00)
[2019-06-09 21:12] LABS: Hemoglobin A1C 7.3 % (4.0-6.0)
[2019-06-10 01:34] LABS: Glucose,Whole Blood 165 mg/dL (75-99)
[2019-06-10 02:43] LABS: Cholesterol 125 mg/dL (<200); HDL Cholesterol 46 mg/dL (40-60); LDL Cholesterol,Calculated 46 mg/dL (0-99); Triglycerides 165 mg/dL (<150)
[2019-06-10 06:38] LABS: Glucose,Whole Blood 135 mg/dL (75-99)
[2019-06-10 07:10] VITALS: BP 137/79; PULSE 57; RESP 18; TEMP 98.2
[2019-06-10] MEDS ORDERED: metFORMIN 500 MG TAB PO SCH (07:30)
[2019-06-10] MEDS: INSULIN ASPART (NovoLOG) 100 UNIT/ML VIAL SQ SCH ×2 (08:31→08:32)
--- NOTE | 2019-06-10 08:32 | P.PN ---
Progress Note - Text Progress Note Date: 06/10/19 This is a pleasant 68-year-old female patient with a past medical history significant for CAD and status post CABG, fibroplasia, hypertension, dyslipidemia, was admitted to the hospital with a chest discomfort and she just was discharged from the hospital recently after she presented with chest discomfort and ruled out for acute coronary event and underwent dobutamine stress echocardiogram which came in to be unremarkable. On follow-up with her today, she stated that she is feeling better she has been chest pain-free. The chest discomfort was atypical anyway to start with. From a cardiovascular standpoint of view, the patient can be discharged home. She does have an appointment with Dr. Juarez next week.
[2019-06-10] MEDS: ATORVASTATIN 80 MG TAB PO SCH (08:35)
[2019-06-10] MEDS: METOPROLOL TARTRATE 25 MG TAB PO SCH (08:35)
[2019-06-10] MEDS: FUROSEMIDE 20 MG TAB PO SCH (08:35)
[2019-06-10] MEDS: CLOPIDOGREL 75 MG TAB PO SCH (08:35)
[2019-06-10] MEDS: TIMOLOL 0.5% OPHTH DROPS 5 ML BTL BOTH EYES SCH (08:35)
[2019-06-10] MEDS: CITALOPRAM HYDROBROMIDE 20 MG TAB PO SCH (08:36)
[2019-06-10] MEDS ORDERED: LINAGLIPTIN PO SCH (09:00)
[2019-06-10] MEDS ORDERED: EMPAGLIFLOZIN PO SCH (09:00)
[2019-06-10] MEDS ORDERED: ISOSORBIDE MONONITRATE ER 60 MG TAB.ER.24H PO SCH (09:00)
[2019-06-10] MEDS ORDERED: ASPIRIN 325 MG TAB PO SCH (09:00)
[2019-06-10] MEDS ORDERED: LORATADINE 10 MG TAB PO SCH (09:00)
[2019-06-10] MEDS ORDERED: LOSARTAN 25 MG TAB PO SCH (09:00)
[2019-06-10] MEDS ORDERED: MULTIVITAMINS, THERA 1 EACH TAB PO SCH (09:00)
[2019-06-10] MEDS ORDERED: FERROUS SULFATE 325 MG TAB PO SCH (09:00)
--- NOTE | 2019-06-10 11:11 | P.DS ---
Providers Date of admission: 06/09/19 08:28 Expected date of discharge: 06/10/19 (Chest pain atypical) Attending physician: Tim Osborn Consults: 06/09/19 08:25 Consult Physician Urgent Consulting Provider: Hilaria Juarez Consult Reason/Comments: unstable angina Do you want consulting provider notified?: Yes Primary care physician: Tim Osborn There is a dictation discharge summary date of service 06/10/2019. Dictating discharge summary by Dr. Can, Patient was on observation status. Diagnosis: #1 atypical chest pain #2 stable angina #3 status post HI in the past #4 history of coronary bypass graft 3 #5 diabetes mellitus type 2 on oral and insulin. #6 diabetes neuropathy of the lower extremities. #7 fibromyalgia #8 hypertension with hypertensive heart disease #9 hyperlipidemia. ER presentation: Patient presented with the chest pain left-sided precordial as brought by ambulance. With a suspicious of recurrent HI. Hospital course: Patient admitted on observation status, seen by myself as well as Dr. Mendenhall, monitored that her environmental monitoring specialist and the cardiac enzyme which was negative. Her medication was addressed and continued. Patient did feel better this morning was no chest pain, seen by Dr. Mendenhall and that he cleared her for discharge to be followed by Dr. Juarez parts counter representative as well as Dr. Osborn as outpatient next week. On discharge exam: Patient conscious alert oriented 3 her at bedside Her HEENT negative with no changes Head was normocephalic and atraumatic. Neck was supple no JVD no thyromegaly no lymphadenopathy. Chest was clear to auscultation and percussion no wheezes or rhonchi's. The heart regular sinus rhythm and no chest pain no anginal pain. Abdomen obese positive bowel sounds no tenderness and no nausea or vomiting. Extremities: No edema and she is cane with walking for the neuropathy from diabetes. Psychiatry: Normal mood. Neurologic no lateralizing sign no tremor. Assessment: Stable general condition with resolution of the chest pain which was atypical. And history of unstable angina currently stable. Plan: Patient will be discharged today to follow up with Dr. Osborn and Dr. Juarez as outpatient. Continue the current medication at home. No change of medication or adding medication on this admission. Continue diabetic monitoring and the insulin for diabetes which has been controlled as well as the blood pressure. Vital sign stable on discharge as well as a blood sugar. Patient Condition at Discharge: Stable Plan - Discharge Summary Discharge Rx Participant: No New Discharge Prescriptions: Continue Latanoprost Ophth [Xalatan 0.005%] 1 drop RIGHT EYE HS Ergocalciferol [Vitamin D2 (DRISDOL)] 50,000 unit PO SA Timolol 0.5% Ophth Soln [Timoptic 0.5% Ophth Soln] 1 drop BOTH EYES BID Clopidogrel [Plavix] 75 mg PO DAILY tab Multivitamins, Thera [Multivitamin (formulary)] 1 tab PO DAILY Hydrocortisone [Hydrocortisone 0.05%] 1 applic TOPICAL DAILY PRN PRN Reason: Skin Irritation Fluticasone Nasal [place] [Flonase Nasal [place]] 1 spray EA NOSTRIL DAILY PRN PRN Reason: Congestion Nitroglycerin Sl Tabs [Nitrostat] 0.4 mg SUBLINGUAL Q5M PRN PRN Reason: Chest Pain Metoprolol Tartrate [Lopressor] 25 mg PO BID Fexofenadine HCl [Citlaly Allergy] 180 mg PO DAILY metFORMIN HCL 500 mg PO DAILY Ferrous Sulfate [Iron (65 MG Elemental)] 325 mg PO DAILY Losartan Potassium [Cozaar] 25 mg PO DAILY HYDROcodone/APAP 5-325MG [[place] 5-325] 2 tab PO BID PRN PRN Reason: Pain Insulin Glargine [Lantus] 18 unit SQ HS Citalopram Hydrobromide [CeleXA] 20 mg PO DAILY Aspirin 81 mg PO HS Empagliflozin/Linagliptin [Glyxambi 10 mg-5 mg Tablet] 1 tab PO QAM Polyethylene Glycol 3350 [Miralax] 17 gm PO DAILY PRN PRN Reason: Constipation Isosorbide Mononitrate ER [Imdur] 60 mg PO DAILY INSULIN LISPRO (humaLOG) [humaLOG] 16 units SQ TID Atorvastatin [Lipitor] 80 mg PO DAILY Furosemide [Lasix] 20 mg PO BID INSULIN LISPRO (humaLOG) [humaLOG] See Protocol SQ TID PRN PRN Reason: Blood Sugar - High Discharge Medication List Ergocalciferol [Vitamin D2 (DRISDOL)] 50,000 unit PO SA 09/11/14 [History] Latanoprost Ophth [Xalatan 0.005%] 1 drop RIGHT EYE HS 09/11/14 [History] Timolol 0.5% Ophth Soln [Timoptic 0.5% Ophth Soln] 1 drop BOTH EYES BID 01/22/18 [History] Clopidogrel [Plavix] 75 mg PO DAILY tab 02/03/18 [Rx] Multivitamins, Thera [Multivitamin (formulary)] 1 tab PO DAILY 07/19/18 [History] Ferrous Sulfate [Iron (65 MG Elemental)] 325 mg PO DAILY 11/29/18 [History] Fexofenadine HCl [Citlaly Allergy] 180 mg PO DAILY 11/29/18 [History] Fluticasone Nasal [place] [Flonase Nasal [place]] 1 spray EA NOSTRIL DAILY PRN 11/29/18 [History] Hydrocortisone [Hydrocortisone 0.05%] 1 applic TOPICAL DAILY PRN 11/29/18 [History] Metoprolol Tartrate [Lopressor] 25 mg PO BID 11/29/18 [History] Nitroglycerin Sl Tabs [Nitrostat] 0.4 mg SUBLINGUAL Q5M PRN 11/29/18 [History] metFORMIN HCL 500 mg PO DAILY 11/29/18 [History] Losartan Potassium [Cozaar] 25 mg PO DAILY 12/12/18 [History] Aspirin 81 mg PO HS 12/26/18 [History] Citalopram Hydrobromide [CeleXA] 20 mg PO DAILY 12/26/18 [History] Empagliflozin/Linagliptin [Glyxambi 10 mg-5 mg Tablet] 1 tab PO QAM 12/26/18 [History] HYDROcodone/APAP 5-325MG [[place] 5-325] 2 tab PO BID PRN 12/26/18 [History] Insulin Glargine [Lantus] 18 unit SQ HS 12/26/18 [History] Isosorbide Mononitrate ER [Imdur] 60 mg PO DAILY 01/23/19 [History] Polyethylene Glycol 3350 [Miralax] 17 gm PO DAILY PRN 01/23/19 [History] INSULIN LISPRO (humaLOG) [humaLOG] 16 units SQ TID 04/02/19 [History] Atorvastatin [Lipitor] 80 mg PO DAILY 06/04/19 [History] Furosemide [Lasix] 20 mg PO BID 06/04/19 [History] INSULIN LISPRO (humaLOG) [humaLOG] See Protocol SQ TID PRN 06/04/19 [History] Follow up Appointment(s)/Referral(s): Tim Osborn MD [Primary Care Provider] - 1-2 days Hilaria Juarez MD [STAFF PHYSICIAN] - 1 Week Patient Instructions/Handouts: Chest Pain (DC) Discharge Disposition: HOME SELF-CARE
== END 2019-06-10 11:20 | disposition home or self-care (01) ==
LOC: EC 06:58 → 1SOBS 08:28
PROVIDERS: ADMIT Internal Medicine; ATTEND Internal Medicine
DX: R07.89 Other chest pain (principal); I25.119 Atherosclerotic heart disease of native coronary artery with unspecified angina pectoris; I25.2 Old myocardial infarction; Z95.1 Presence of aortocoronary bypass graft; E11.319 Type 2 diabetes mellitus with unspecified diabetic retinopathy without macular edema; I12.9 Hypertensive chronic kidney disease with stage 1 through stage 4 chronic kidney disease, or unspecified chronic kidney disease; E11.22 Type 2 diabetes mellitus with diabetic chronic kidney disease; E11.42 Type 2 diabetes mellitus with diabetic polyneuropathy; N18.9 Chronic kidney disease, unspecified; M79.7 Fibromyalgia; E78.5 Hyperlipidemia, unspecified; K21.9 Gastro-esophageal reflux disease without esophagitis; E66.9 Obesity, unspecified; Z68.41 Body mass index [BMI] 40.0-44.9, adult; H40.9 Unspecified glaucoma; M46.94 Unspecified inflammatory spondylopathy, thoracic region; M46.96 Unspecified inflammatory spondylopathy, lumbar region; G89.29 Other chronic pain; M54.42 Lumbago with sciatica, left side; M54.41 Lumbago with sciatica, right side; R26.81 Unsteadiness on feet; Z79.4 Long term (current) use of insulin; Z79.02 Long term (current) use of antithrombotics/antiplatelets; Z79.899 Other long term (current) drug therapy; Z79.82 Long term (current) use of aspirin; Z88.0 Allergy status to penicillin; Z88.8 Allergy status to other drugs, medicaments and biological substances; Z91.010 Allergy to peanuts; Z98.84 Bariatric surgery status; Z87.891 Personal history of nicotine dependence; Z87.09 Personal history of other diseases of the respiratory system; Z87.440 Personal history of urinary (tract) infections; Z96.89 Presence of other specified functional implants; Z90.49 Acquired absence of other specified parts of digestive tract; Z80.9 Family history of malignant neoplasm, unspecified; Z83.3 Family history of diabetes mellitus; Z82.49 Family history of ischemic heart disease and other diseases of the circulatory system
CPT/HCPCS: 96374; 99285; 36415; 93005; 83880; 80061; 80053; 83735; 84484; 85025; 85610; 85730; 83520; 83036; 71046; G0378 ×2; J2405

== ENCOUNTER → 2019-11-29 | Outpatient (CLI) | payer OTHER, MEDICARE ==
--- NOTE | 2019-11-30 13:38 | MM ---
Reason for exam: screening (asymptomatic). Last mammogram was performed 1 year and 3 months ago. History: Patient is postmenopausal and is nulliparous. Physical Findings: A clinical breast exam by your physician is recommended on an annual basis and results should be correlated with mammographic findings. MG 3D Screening Mammo W/Cad Bilateral CC, MLO, and XCCL view(s) were taken. Prior study comparison: September 13, 2018, bilateral MG 3d screening mammo w/cad. August 13, 2016, bilateral MG 3d screening mammo w/cad. There are scattered fibroglandular densities. Benign appearing bilateral calcifications. There is no discrete abnormality. No significant changes when compared with prior studies. ASSESSMENT: Negative, BI-RAD 1 RECOMMENDATION: Routine screening mammogram of both breasts in 1 year.
== END | disposition home or self-care (01) ==
LOC: RADMAMWWP 06:53
PROVIDERS: ATTEND Family Medicine
DX: Z12.31 Encounter for screening mammogram for malignant neoplasm of breast (principal)
CPT/HCPCS: 77063; 77067

== ENCOUNTER → 2020-07-14 | Outpatient (CLI) | payer OTHER, MEDICARE ==
--- NOTE | 2020-07-14 14:36 | US ---
EXAMINATION TYPE: US venous doppler duplex [facility] DATE OF EXAM: 07/14/2020 12:44 PM COMPARISON: NONE LOWER EXTREMITY VENOUS INSUFFICIENCY CLINICAL HISTORY: I70.213 ATHEROSCLEROSIS, I87.2 VENOUS INSUFFICIENCY. Patient c/o bilateral LE numbn ess and pain; left GSV harvested for CABG SIDE PERFORMED: bilateral 1) Color flow is present and patency is documented in the following vessels. No DVT or SVT is noted . Common Femoral Vein (CFV) Deep Femoral Vein Femoral Vein Popliteal Vein Proximal Calf Veins Greater Saph Vein (GSV) Upper Small Saph Vein 2) There is venous reflux noted at the following venous levels: Right GSV mid, Right upper Small Sap henous Vein, Left CFV 3) Incompetent perforators are noted at these levels: none seen Right popliteal fossa cyst is seen = 4.8 x 4.0 x 2.0cm. IMPRESSION: As above.
--- NOTE | 2020-07-16 12:04 | P.ARTDOP ---
Arterial Doppler LOWER EXTREMITY ARTERIAL DOPPLER: DATE OF SERVICE: 07/14/2020 Reason for study: Leg pain. Doppler waveforms: Multiphasic bilaterally throughout. Pulse volume recording: []. Pressure gradients: Mild gradient above the ankle on the right. Ankle-brachial indices: 0.91 on the right. The left cannot be occluded. Toe brachial indices: 0.52 on the right, 0.76 on the left Impression: Mild right fem-pop disease. Perfusion adequate for healing is suspected. Calcific wall disease suspected, appears to not dramatically affect perfusion..
== END | disposition home or self-care (01) ==
LOC: RADUSWWP 11:57
PROVIDERS: ATTEND Family Medicine
DX: I87.2 Venous insufficiency (chronic) (peripheral) (principal); I70.213 Atherosclerosis of native arteries of extremities with intermittent claudication, bilateral legs
CPT/HCPCS: 93922; 93970

== ENCOUNTER → 2021-05-19 | Outpatient (CLI) | payer MEDICARE ==
[2021-05-19 11:29] LABS: Appearance,Urine Clear (Clear); Bacteria,Urine Rare /hpf; Bilirubin,Urine Negative (Negative); Blood,Urine Negative (Negative); Color,Urine Yellow; Glucose,Urine (UA) Trace (Negative); Ketones,Urine Negative (Negative); Leukocyte Esterase,Urine Small (Negative); Mucus,Urine Rare /hpf; Nitrite,Urine Negative (Negative); Protein,Urine Trace (Negative); RBC,Urine <1 /hpf (0-5); Specific Gravity,Urine 1.021 (1.001-1.035); Squamous Epithelial Cell,Urine 5 /hpf (0-4); WBC,Urine 7 /hpf (0-5)
[2021-05-19 15:01] LABS: Basophils # (A) 0.02 X 10*3/uL (0.00-0.10); Basophils % (A) 0.3 %; Eosinophils # (A) 0.24 X 10*3/uL (0.04-0.35); Eosinophils % (A) 4.1 %; HCT 34.6 % (37.2-46.3); HGB 11.6 g/dL (12.0-15.0); Lymphocytes # (A) 1.23 X 10*3/uL (0.90-5.00); Lymphocytes % (A) 20.9 %; MCHC 33.5 g/dL (32.0-37.0); MCV 98.6 fL (80.0-97.0); Mean Platelet Volume 9.9 fL (9.5-12.2); Monocytes # (A) 0.41 X 10*3/uL (0.20-1.00); Neutrophils # (A) 3.96 X 10*3/uL (1.80-7.70); Neutrophils % (A) 67.2 %; Platelet Count 241 X 10*3/uL (140-440); RBC 3.51 X 10*6/uL (4.10-5.20); RDW 12.7 % (11.5-14.5); WBC 5.89 X 10*3/uL (4.50-10.00)
[2021-05-19 18:23] LABS: % Iron Saturation 24.67 (12.00-45.00); African American GFR (CKD) 66.1 (60.0-200.0); Albumin 4.1 g/dL (3.80-4.90); Albumin/Globulin Ratio 1.32 (1.60-3.17); Anion Gap 6.6 mmol/L (4.00-12.00); Calcium 9.7 mg/dL (8.7-10.3); Carbon Dioxide 23.4 mmol/L (21.6-31.8); Chol/HDL Ratio 2.36; Globulin 3.1 g/dL (1.6-3.3); LDL Cholesterol,Calculated 36.2 mg/dL (0.0-131.0); Magnesium 1.9 mg/dL (1.5-2.4); Phosphorus 3.2 mg/dL (2.4-5.1); Potassium 5.1 mmol/L (3.5-5.5); Total Bilirubin 0.5 mg/dL (0.3-1.2); Total Protein 7.2 g/dL (6.2-8.2); VLDL Calculation 31.8 mg/dL (5.00-40.00)
[2021-05-19 19:00] LABS: Hemoglobin A1C 6.7 % (4.0-6.0)
[2021-05-19 22:23] LABS: Urine Creatinine 108.7 mg/dL
== END | disposition home or self-care (01) ==
LOC: LABWHC1 08:39
PROVIDERS: ATTEND Nurse Practitioner Adult Health
DX: E11.22 Type 2 diabetes mellitus with diabetic chronic kidney disease (principal); I12.9 Hypertensive chronic kidney disease with stage 1 through stage 4 chronic kidney disease, or unspecified chronic kidney disease; E11.65 Type 2 diabetes mellitus with hyperglycemia; E11.21 Type 2 diabetes mellitus with diabetic nephropathy; N18.9 Chronic kidney disease, unspecified; L97.122 Non-pressure chronic ulcer of left thigh with fat layer exposed; I73.9 Peripheral vascular disease, unspecified; E78.2 Mixed hyperlipidemia; Z79.899 Other long term (current) drug therapy
CPT/HCPCS: 36415; 80053; 80061; 81001; 82043; 82550; 82570; 83036; 83540; 83550; 83735; 83970; 84100; 84134; 84550; 85025

== ENCOUNTER → 2021-07-02 | Outpatient (CLI) | payer MEDICARE ==
--- NOTE | 2021-07-03 13:07 | MM ---
Reason for exam: screening (asymptomatic). Last mammogram was performed 1 year and 7 months ago. History: Patient is postmenopausal and is nulliparous. Physical Findings: A clinical breast exam by your physician is recommended on an annual basis and results should be correlated with mammographic findings. MG 3D Screening Mammo W/Cad Bilateral CC and MLO view(s) were taken. Prior study comparison: November 29, 2019, bilateral MG 3d screening mammo w/cad. September 13, 2018, bilateral MG 3d screening mammo w/cad. The breast tissue is heterogeneously dense. This may lower the sensitivity of mammography. There is no discrete abnormality. No significant changes when compared with prior studies. ASSESSMENT: Negative, BI-RAD 1 RECOMMENDATION: Routine screening mammogram of both breasts in 1 year.
== END | disposition home or self-care (01) ==
LOC: RADMAMWWP 05-27 07:04
PROVIDERS: ATTEND Family Medicine
DX: Z12.31 Encounter for screening mammogram for malignant neoplasm of breast (principal); Z78.0 Asymptomatic menopausal state
CPT/HCPCS: 77063; 77067

== ENCOUNTER → 2021-09-07 | Outpatient (CLI) | payer MEDICARE ==
--- NOTE | 2021-09-07 10:27 | US ---
EXAMINATION TYPE: US kidneys/renal and bladder DATE OF EXAM: 09/07/2021 COMPARISON: 05/22/2016 CLINICAL HISTORY: N28.9 CKD. EXAM MEASUREMENTS: Right Kidney: 9.6x4.0x4.0 cm Left Kidney: 8.9x4.5x5.7 cm Very difficult exam due to patient body habitus. Assessment for mass is limited. Right Kidney: No hydronephrosis or nephrolithiasis seen Left Kidney: No hydronephrosis or nephrolithiasis seen Bladder: wnl Bilateral Jets seen: Yes IMPRESSION: Limited exam demonstrates no definite hydronephrosis or nephrolithiasis
== END | disposition home or self-care (01) ==
LOC: RADUSWWP 09:39
PROVIDERS: ATTEND Family Medicine
DX: N28.9 Disorder of kidney and ureter, unspecified (principal)
CPT/HCPCS: 76770

== ENCOUNTER 2021-10-18 06:20 | Observation (INO) | payer MEDICARE ==
[2021-10-18] MEDS ORDERED: NITROGLYCERIN OINT 1 INCH/GM PACKET TOPICAL STA (06:31)
[2021-10-18 06:50] LABS: Basophils % (A) 0 %; Eosinophils # (A) 0.2 k/uL (0-0.7); Eosinophils % (A) 4 %; HCT 33.5 % (34.0-46.0); HGB 11.5 gm/dL (11.4-16.0); Lymphocytes % (A) 22 %; MCHC 34.4 g/dL (31.0-37.0); MCV 98.9 fL (80.0-100.0); Mean Platelet Volume 7.1; Monocytes # (A) 0.2 k/uL (0-1.0); Monocytes % (A) 5 %; Neutrophils # (A) 3.2 k/uL (1.3-7.7); Neutrophils % (A) 68 %; Platelet Count 233 k/uL (150-450); RBC 3.39 m/uL (3.80-5.40); RDW 12.7 % (11.5-15.5); WBC 4.8 k/uL (3.8-10.6)
--- NOTE | 2021-10-18 06:55 | ED ---
Chest Pain HPI - General Chief Complaint: Chest Pain Stated Complaint: Chest pain Time Seen by Provider: 10/18/21 06:30 Source: patient, EMS, RN notes reviewed Mode of arrival: EMS Limitations: no limitations - History of Present Illness Initial Comments: This is a 71-year-old female presents emergency Department via EMS with chief complaint of chest discomfort. Patient states started around 4:30 with some back, jaw and anterior chest pain. Patient states that she took nitro, by aspirin. Patient states nitro did alleviate symptoms but is starting to come back. She has no shortness of breath she does have an extensive cardiac history including CA, triple bypass, hypertension hyperlipidemia diabetes. Patient has no abdominal pain no leg pain or leg swelling or usual. Patient is followed by Dr. Juarez - Related Data Home Medications Medication Instructions Recorded Confirmed Ergocalciferol [Vitamin D2 50,000 unit PO SA 09/11/14 06/09/19 (DRISDOL)] Latanoprost Ophth [Xalatan 0.005%] 1 drop RIGHT EYE HS 09/11/14 06/09/19 Timolol 0.5% Ophth Soln [Timoptic 1 drop BOTH EYES BID 01/22/18 06/09/19 0.5% Ophth Soln] Multivitamins, Thera [Multivitamin 1 tab PO DAILY 07/19/18 06/09/19 (formulary)] Ferrous Sulfate [Iron (65 MG 325 mg PO DAILY 11/29/18 06/09/19 Elemental)] Fexofenadine HCl [Citlaly Allergy] 180 mg PO DAILY 11/29/18 06/09/19 Fluticasone Nasal [place] [Flonase 1 spray EA NOSTRIL DAILY PRN 11/29/18 06/09/19 Nasal [place]] Hydrocortisone [Hydrocortisone 1 applic TOPICAL DAILY PRN 11/29/18 06/09/19 0.05%] Metoprolol Tartrate [Lopressor] 25 mg PO BID 11/29/18 06/09/19 Nitroglycerin Sl Tabs [Nitrostat] 0.4 mg SUBLINGUAL Q5M PRN 11/29/18 06/09/19 metFORMIN HCL 500 mg PO DAILY 11/29/18 06/09/19 Losartan Potassium [Cozaar] 25 mg PO DAILY 12/12/18 06/09/19 Aspirin 81 mg PO HS 12/26/18 06/09/19 Citalopram Hydrobromide [CeleXA] 20 mg PO DAILY 12/26/18 06/09/19 Empagliflozin/Linagliptin 1 tab PO QAM 12/26/18 06/09/19 [Glyxambi 10 mg-5 mg Tablet] HYDROcodone/APAP 5-325MG [[place] 2 tab PO BID PRN 12/26/18 06/09/19 5-325] Insulin Glargine [Lantus Vial] 18 unit SQ HS 12/26/18 06/09/19 Isosorbide Mononitrate ER [Imdur] 60 mg PO DAILY 01/23/19 06/09/19 polyethylene glycoL 3350 [Miralax] 17 gm PO DAILY PRN 01/23/19 06/09/19 INSULIN LISPRO (humaLOG) [humaLOG] 16 units SQ TID 04/02/19 06/09/19 Atorvastatin [Lipitor] 80 mg PO DAILY 06/04/19 06/09/19 Furosemide [Lasix] 20 mg PO BID 06/04/19 06/09/19 INSULIN LISPRO (humaLOG) [humaLOG] See Protocol SQ TID PRN 06/04/19 06/09/19 Previous Rx's Medication Instructions Recorded Clopidogrel [Plavix] 75 mg PO DAILY tab 02/03/18 Allergies Allergy/AdvReac Type Severity Reaction Status Date / Time diclofenac Allergy HIGH BLOOD Verified 10/18/21 06:31 SUGAR peanut Allergy PER Verified 10/18/21 06:31 ALLERGY TEST Penicillins Allergy ITCHING Verified 10/18/21 06:31 AND RED SKIN Review of Systems ROS Statement: Those systems with pertinent positive or pertinent negative responses have been documented in the HPI. ROS Other: All systems not noted in ROS Statement are negative. EKG Findings - EKG Comments: EKG Findings:: EKG performed at 6:28 normal sinus rhythm rate of 69 MN 204 QRS 76 QT status QTC 400/428 Past Medical History Past Medical History: Coronary Artery Disease (CAD), Chest Pain / Angina, Diabetes Mellitus, Eye Disorder, Fibromyalgia, GERD/Reflux, Hyperlipidemia, Hypertension, Myocardial Infarction (CA), Osteoarthritis (OA), Skin Disorder, Vascular Disorder Additional Past Medical History / Comment(s): MIs x2, bilateral carotid artery disease, nephritis and had to receive hemodialysis twice-kidneys normal since, IDDM type II, neuropathy bilateral hands/feet, bilateral eye glaucoma/retinopathy/retinal bleeds, diffuse arthritis, DDD, chronic low back pain with bilateral sciatica, recurrent buttock ulcerations, bronchitis, sinus problems, UTIs, past migraines, bladder leakage, unsteady gait. Last Myocardial Infarction Date:: 12/2017 History of Any Multi-Drug Resistant Organisms: None Reported Past Surgical History: Bariatric Surgery, Cholecystectomy, Coronary Bypass/CABG, Heart Catheterization, Tubal Ligation Additional Past Surgical History / Comment(s): 12/2017 CABG 3 vessel, lap banding, bilateral knee scopes, bilateral carpal tunnel releases, R eye has metal implant per pt d/t eyelid ligament problem, bilateral laser eye surgery for retinal bleeds, bilateral cataract removals/lens implants, bilateral hand trigger finger surgeries, EGD, colonoscopy, sinus surgery, pilonidal cystectomy, R temporal bx and mole removal (benign), R trunk benign mole removal, pain clinic procedures. Past Anesthesia/Blood Transfusion Reactions: No Reported Reaction Additional Past Anesthesia/Blood Transfusion Reaction / Comment(s): Pt has received blood without reaction. Past Psychological History: No Psychological Hx Reported Smoking Status: Former smoker Past Alcohol Use History: None Reported Past Drug Use History: None Reported - Past Family History Father Family Medical History: Cancer Additional Family Medical History / Comment(s): Pt does not recall type of cancer father had but it caused him to have an arm amputation. Mother Family Medical History: Diabetes Mellitus, Myocardial Infarction (CA) Additional Family Medical History / Comment(s): Mother of a CA at the age of 58yrs. General Exam Limitations: no limitations General appearance: alert, in no apparent distress Head exam: Present: atraumatic, normocephalic, normal inspection Eye exam: Present: normal appearance, PERRL, EOMI. Absent: scleral icterus, conjunctival injection, periorbital swelling ENT exam: Present: normal exam, normal oropharynx, mucous membranes moist Neck exam: Present: normal inspection, full ROM. Absent: tenderness, meningismus, lymphadenopathy Respiratory exam: Present: normal lung sounds bilaterally. Absent: respiratory distress, wheezes, rales, rhonchi, stridor Cardiovascular Exam: Present: regular rate, normal rhythm, normal heart sounds. Absent: systolic murmur, diastolic murmur, rubs, gallop, clicks Extremities exam: Absent: pedal edema, calf tenderness Neurological exam: Present: alert Psychiatric exam: Present: normal affect, normal mood Skin exam: Present: warm, dry, intact, normal color. Absent: rash Course Vital Signs 10/18/21 06:22 Temperature 97.9 F Pulse Rate 80 Respiratory 18 Rate Blood Pressure 148/71 O2 Sat by Pulse 100 Oximetry Chest Pain MDM - MDM 71-year-old female presented for chest discomfort. Patient has multiple risk factors for significant coronary artery disease. Patient since her troponin is negative patient's pain is greatly improved after nitro will be admitted for serial enzymes, cardiac evaluation. Disposition Clinical Impression: Chest pain Disposition: ADMITTED IP TO THIS HOSP Condition: Fair Referrals: Nonstaff,Physician [REFERRING] - 1-2 days
--- NOTE | 2021-10-18 06:57 | XR ---
EXAMINATION TYPE: XR chest 2V DATE OF EXAM: 10/18/2021 COMPARISON: 06/09/2019 HISTORY: Chest pain TECHNIQUE: Frontal and lateral views of the chest are obtained. FINDINGS: There has been prior CABG surgery. The heart size is borderline normal and there is no pul monary vascular congestion or interstitial edema. The lungs are clear. There is no pleural effusion or pneumothorax. IMPRESSION: Prior CABG surgery. No acute cardiopulmonary disease. No interval change since previous.
[2021-10-18 07:07] LABS: INR 0.9 (<1.2); Partial Thromboplastin Time 22.9 sec (22.0-30.0); Prothrombin Time 10.1 sec (9.0-12.0)
[2021-10-18 07:14] LABS: Albumin 3.6 g/dL (3.5-5.0); Calcium 9.4 mg/dL (8.4-10.2); Potassium 4.7 mmol/L (3.5-5.1); Total Bilirubin 0.7 mg/dL (0.2-1.3); Total Protein 7.1 g/dL (6.3-8.2)
[2021-10-18] MEDS ORDERED: polyethylene glycoL 3350 17 GM POWD.PACK PO PRN (07:42)
[2021-10-18] MEDS ORDERED: HYDROcodone/APAP 5-325MG 1 EACH TAB PO PRN (07:42)
[2021-10-18] MEDS ORDERED: NON FORMULARY DRUG (Insulin Lispro (Humalog) 100 UNIT/1 ML Vial) SQ PRN (07:42)
[2021-10-18 08:12] LABS: Glucose,Whole Blood 269 mg/dL (75-99)
[2021-10-18] MEDS ORDERED: metFORMIN 500 MG TAB PO SCH (09:00)
[2021-10-18] MEDS ORDERED: LINAGLIPTIN PO SCH (09:00)
[2021-10-18] MEDS ORDERED: [UNRECOGNIZED DRUG - OTHER] PO SCH (09:00)
[2021-10-18] MEDS ORDERED: EMPAGLIFLOZIN PO SCH (09:00)
[2021-10-18] MEDS: CITALOPRAM HYDROBROMIDE 20 MG TAB PO SCH (09:26)
[2021-10-18] MEDS: FERROUS SULFATE 325 MG TAB PO SCH (09:26)
[2021-10-18] MEDS: ISOSORBIDE MONONITRATE ER 60 MG TAB.ER.24H PO SCH (09:26)
[2021-10-18] MEDS: LORATADINE 10 MG TAB PO SCH (09:26)
[2021-10-18] MEDS: FUROSEMIDE 20 MG TAB PO SCH ×2 (09:26→22:25)
[2021-10-18] MEDS: LOSARTAN 25 MG TAB PO SCH (09:27)
[2021-10-18] MEDS: MULTIVITAMINS, THERA 1 EACH TAB PO SCH (09:27)
[2021-10-18] MEDS: ATORVASTATIN 80 MG TAB PO SCH (09:27)
[2021-10-18] MEDS: CLOPIDOGREL 75 MG TAB PO SCH (09:27)
[2021-10-18] MEDS: METOPROLOL TARTRATE 25 MG TAB PO SCH ×2 (09:27→22:25)
[2021-10-18] MEDS ORDERED: HEPARIN SODIUM 1,000 UN/ML (10ML VL) IV PRN (09:40)
[2021-10-18] MEDS ORDERED: HEPARIN SODIUM 1,000 UN/ML (10ML VL) IV ONE (09:40)
[2021-10-18] MEDS ORDERED: HEPARIN SOD,PORK IN 0.45% NACL 25,000 UNIT in 0.45% NACL 1 250ML.BAG IV SCH (09:45)
[2021-10-18] MEDS ORDERED: CLOTRIMAZOLE 1% CREAM 30 GM TUBE TOPICAL PRN (09:46)
[2021-10-18] MEDS ORDERED: NYSTATIN 100,000 UNIT/GM POWD 15 GM TOPICAL PRN (09:46)
--- NOTE | 2021-10-18 10:06 | P.HPIM ---
History of Present Illness H&P Date: 10/18/21 History of Presenting Illness: Patient is a very pleasant 71-year-old female with a past medical history of CAD status post triple bypass in 2016 on dual antiplatelet therapy with aspirin and Plavix, hypertension, hyperlipidemia, insulin-dependent diabetes mellitus type 2 with most recent hemoglobin A1c of 6.7%, glaucoma, peripheral vascular disease, GERD, and fibromyalgia. Patient presented to the emergency department today with a chief complaint of chest pain. Patient reports awakening this morning around 4:30 AM with some pain in her upper back, chest, and radiating into her jaw. Patient reports because of her history she immediately took an aspirin and a nitro which seemed to provide slight improvement, patient stated she took 2 additional nitros which somewhat relieved the pain. Patient states short while later pain returned so she came to the emergency department for evaluation. Patient was seen and fully evaluated in the emergency department. An EKG completed revealing normal sinus rhythm at 69 bpm with no noted T-wave or ST abn ormalities. Chest x-ray revealing expected postsurgical changes from previous bypass reporting no acute cardiopulmonary process. Labs showing no significant abnormalities with the exception of hyperglycemia with glucose of 266. Troponin was negative at less than 0.012. Patient was seen and fully evaluated at the bedside. She reports full resolution of chest pain shortly after Nitropaste was placed. Patient denies having any diaphoresis, headache, lightheadedness, dizziness, palpitations, shortness of breath, dyspnea with exertion, cough or congestion, nausea, vomiting, or experiencing any numbness/tingling/weakness/swelling in her extremities. Review of systems: Pertinent positives and negatives as discussed in HPI, a complete review of sys tems was performed and all other systems are negative. Physical exam: Vital signs reviewed and stable. General: Nontoxic, no distress and appears stated age. Obese. Derm: Skin warm and dry, normal coloration for ethnicity. Head: Atraumatic, normocephalic and symmetric. Eyes: EOMs intact, no lid lag, and anicteric sclera Mouth: no lip lesions, mucus membranes moist Cardiovascular: regular rate and rhythm with normal S1S2, no murmur, positive posterior tibial pulses bilaterally, and cap refill < 2 seconds. Lungs: Respirations even, regular, and unlabored on room air. Lungs slightly diminished with no rhonchi, no rales, no wheezing, and no accessory muscle usage. Abdominal: Obese abdomen, soft, nontender to palpation, no guarding, no apprec iable organomegaly Ext: ROM intact. No gross muscle atrophy, no edema, no contractures. Neuro: Speech clear, face symmetrical and CN II-XII grossly intact with no noted focal neuro deficits. Psych: Alert and oriented to person, place, time, and situation. Appropriate and pleasant affect. Assessment and Plan of Care: Unstable angina History of CAD status post triple bypass in 2016 -Cardiology consult -Telemetry monitoring -Trend troponins -Echocardiogram -Cardiac diet, nothing by mouth at midnight pending cardiology recommendations -Heparin infusion per ACS protocol for unstable angina, pharmacy to dose -Continuation of daily Aspirin, Plavix, Imdur, Lasix, atorvastatin, losartan, and metoprolol -Lipid profile with a.m. labs. Hypertension -Monitor vital signs and continue daily medication regimen with losartan and metoprolol. Hyperlipidemia -Continue daily medication regimen with atorvastatin. -Lipid profile to be completed with a.m. labs. Insulin-dependent diabetes mellitus type 2 -Hold oral hypoglycemic medications. Patient placed on glycemic protocol with NovoLog sliding scale and to continue scheduled NovoLog with meals and at bedtime along with long-acting Levemir 18 units nightly. Glaucoma Continue daily eyedrops with timolol and Latanoprost GERD GI prophylaxis with Protonix 40 mg daily. Fibromyalgia Symptomatic care and pain management. Continue daily medication regimen with [place] 10/325 3 times daily. The patient is admitted with an anticipated less than 2 midnight stay for evaluation of chest pain. CODE STATUS: Full code DVT prophylaxis: Heparin Discussed with: Patient and patient's Anticipated discharge date: 1-[address]: Home A total of 45 minutes was spent on the care of this complex patient more than 50% of the time was spent in counseling and care coordination. Past Medical History Past Medical History: Coronary Artery Disease (CAD), Chest Pain / Angina, Diabetes Mellitus, Eye Disorder, Fibromyalgia, GERD/Reflux, Hyperlipidemia, Hypertension, Myocardial Infarction (NE), Osteoarthritis (OA), Skin Disorder, Vascular Disorder Additional Past Medical History / Comment(s): MIs x2, bilateral carotid artery disease, nephritis and had to receive hemodialysis twice-kidneys normal since, IDDM type II, neuropathy bilateral hands/feet, bilateral eye glaucoma/retinopathy/retinal bleeds, diffuse arthritis, DDD, chronic low back pain with bilateral sciatica, recurrent buttock ulcerations, bronchitis, sinus problems, UTIs, past migraines, bladder leakage, unsteady gait. Last Myocardial Infarction Date:: 12/2017 History of Any Multi-Drug Resistant Organisms: None Reported Past Surgical History: Bariatric Surgery, Cholecystectomy, Coronary Bypass/CABG, Heart Catheterization, Tubal Ligation Additional Past Surgical History / Comment(s): 12/2017 CABG 3 vessel, lap banding, bilateral knee scopes, bilateral carpal tunnel releases, R eye has metal implant per pt d/t eyelid ligament problem, bilateral laser eye surgery for retinal bleeds, bilateral cataract removals/lens implants, bilateral hand trigger finger surgeries, EGD, colonoscopy, sinus surgery, pilonidal cystectomy, R temporal bx and mole removal (benign), R trunk benign mole removal, pain clinic procedures. Past Anesthesia/Blood Transfusion Reactions: No Reported Reaction Additional Past Anesthesia/Blood Transfusion Reaction / Comment(s): Pt has received blood without reaction. Past Psychological History: No Psychological Hx Reported Smoking Status: Former smoker Past Alcohol Use History: None Reported Past Drug Use History: None Reported - Past Family History Father Family Medical History: Cancer Additional Family Medical History / Comment(s): Pt does not recall type of cancer father had but it caused him to have an arm amputation. Mother Family Medical History: Diabetes Mellitus, Myocardial Infarction (NE) Additional Family Medical History / Comment(s): Mother of a NE at the age of 58yrs. Medications and Allergies Home Medications Medication Instructions Recorded Confirmed Type Ergocalciferol [Vitamin D2 50,000 unit PO SA 09/11/14 10/18/21 History (DRISDOL)] Latanoprost Ophth [Xalatan 0.005%] 1 drop BOTH EYES HS 09/11/14 10/18/21 History Clopidogrel [Plavix] 75 mg PO DAILY tab 02/03/18 10/18/21 Rx Multivitamins, Thera [Multivitamin 1 tab PO DAILY 07/19/18 10/18/21 History (formulary)] Ferrous Sulfate [Iron (65 MG 325 mg PO DAILY 11/29/18 10/18/21 History Elemental)] Fexofenadine HCl [Citlaly Allergy] 180 mg PO DAILY 11/29/18 10/18/21 History Fluticasone Nasal [place] [Flonase 1 spray EA NOSTRIL DAILY PRN 11/29/18 10/18/21 History Nasal [place]] Metoprolol Tartrate [Lopressor] 25 mg PO BID 11/29/18 10/18/21 History Nitroglycerin Sl Tabs [Nitrostat] 0.4 mg SUBLINGUAL Q5M PRN 11/29/18 10/18/21 History metFORMIN HCL 500 mg PO DAILY 11/29/18 10/18/21 History Losartan Potassium [Cozaar] 25 mg PO DAILY 12/12/18 10/18/21 History Aspirin 81 mg PO HS 12/26/18 10/18/21 History Isosorbide Mononitrate ER [Imdur] 60 mg PO DAILY 01/23/19 10/18/21 History polyethylene glycoL 3350 [Miralax] 17 gm PO Q48H PRN 01/23/19 10/18/21 History INSULIN LISPRO (humaLOG) [humaLOG] 4 units SQ AC-TID 04/02/19 10/18/21 History Atorvastatin [Lipitor] 80 mg PO HS 06/04/19 10/18/21 History Furosemide [Lasix] 20 mg PO DAILY 06/04/19 10/18/21 History INSULIN LISPRO (humaLOG) [humaLOG] See Protocol SQ TID PRN 06/04/19 10/18/21 History DULoxetine HCL [Cymbalta] 30 mg PO DAILY 10/18/21 10/18/21 History Dorzolamide 2% [Trusopt 2%] 1 drops BOTH EYES BID 10/18/21 10/18/21 History HYDROcodone/APAP 10-325MG [[place] 1 tab PO TID PRN 10/18/21 10/18/21 History 10-325] Hydrocortisone Cream 1 applic TOPICAL DAILY PRN 10/18/21 10/18/21 History [Hydrocortisone 1% Cream] Insulin Glargine,Hum.rec.anlog 18 unit SQ HS 10/18/21 10/18/21 History [Lantus Solostar Pen] Ketoconazole [Ketoconazole 2%] 1 applic TOPICAL DAILY PRN 10/18/21 10/18/21 History Miconazole Nitrate [Lotrimin AF 1 applic TOPICAL DAILY PRN 10/18/21 10/18/21 History Powder] Omeprazole 40 mg PO DAILY 10/18/21 10/18/21 History Semaglutide [Ozempic] 1 mg SQ BATEMAN 10/18/21 10/18/21 History Allergies Allergy/AdvReac Type Severity Reaction Status Date / Time diclofenac Allergy HIGH BLOOD Verified 10/18/21 08:15 SUGAR peanut Allergy PER Verified 10/18/21 08:15 ALLERGY TEST Penicillins Allergy ITCHING Verified 10/18/21 08:15 AND RED SKIN Physical Exam Vitals: Vital Signs Temp Pulse Resp BP Pulse Ox 10/18/21 08:13 68 18 135/63 98 10/18/21 06:22 97.9 F 80 18 148/71 100 Intake and Output 10/17/21 10/18/21 10/18/21 22:59 06:59 14:59 Other: Weight 110.223 kg Results CBC & Chem 7: 10/18/21 06:38 10/18/21 06:38 Labs: Abnormal Lab Results - Last 24 Hours (Table) 10/18/21 10/18/21 10/18/21 Range/Units 06:38 06:38 08:00 RBC 3.39 L (3.80-5.40) m/uL Hct 33.5 L (34.0-46.0) % Carbon Dioxide 21 L (22-30) mmol/L BUN 20 H (7-17) mg/dL Glucose 266 H (74-99) mg/dL POC Glucose (mg/dL) 269 H (75-99) mg/dL AST 39 H (14-36) U/L
[2021-10-18 10:59] LABS: INR 0.9 (<1.2); Partial Thromboplastin Time 23.1 sec (22.0-30.0); Prothrombin Time 10.2 sec (9.0-12.0)
[2021-10-18 11:33] LABS: Glucose,Whole Blood 217 mg/dL (75-99)
[2021-10-18] MEDS ORDERED: INSULIN ASPART (NovoLOG) 100 UNIT/ML VIAL SQ SCH (12:30)
[2021-10-18] MEDS: INSULIN ASPART (NovoLOG) 100 UNIT/ML VIAL SQ SCH ×3 (13:02→17:52)
--- NOTE | 2021-10-18 14:17 | P.CRDCN ---
History of Present Illness Consult date: 10/18/21 Requesting physician: Miriam Sierra Reason for Consult (text): chest pain Chief complaint: left shoulder blade and jaw pain History of present illness: This is a pleasant 71-year-old female patient who follows in the office with Dr. Juarez. She has a history of CAD status post CABG, hypertension, hyperlipidemia, diabetes, and fibromyalgia. Presented with complaints of left shoulder blade pain radiating into her left jaw. She feels this is different compared to what she felt prior to her CABG however different compared to what she normally experiences with her fibromyalgia pain. She did take in nature glycerin and 4 baby aspirin with some relief but pain subsequently returned she decided to come to the emergency department. EKG showed normal sinus mechanism with no evidence of ischemia. Troponins have been negative 2. Chest x-ray showed prior CABG surgery, no acute cardiopulmonary disease, no interval change since previous. Upon examination the patient is resting comfortably in bed. She complains of generalized discomfort from her fibromyalgia but has no further complaints of left shoulder blade pain. She also mentions a left-sided pressure-like discomfort in her chest at times. This is separate from the pain in the shoulder blade. Past Medical History Past Medical History: Coronary Artery Disease (CAD), Chest Pain / Angina, Diabetes Mellitus, Eye Disorder, Fibromyalgia, GERD/Reflux, Hyperlipidemia, Hypertension, Myocardial Infarction (SD), Osteoarthritis (OA), Skin Disorder, Vascular Disorder Additional Past Medical History / Comment(s): MIs x2, bilateral carotid artery disease, nephritis and had to receive hemodialysis twice-kidneys normal since, IDDM type II, neuropathy bilateral hands/feet, bilateral eye glaucoma/retinopathy/retinal bleeds, diffuse arthritis, DDD, chronic low back pain with bilateral sciatica, recurrent buttock ulcerations, bronchitis, sinus problems, UTIs, past migraines, bladder leakage, unsteady gait. Last Myocardial Infarction Date:: 12/2017 History of Any Multi-Drug Resistant Organisms: None Reported Past Surgical History: Bariatric Surgery, Cholecystectomy, Coronary Bypass/CABG, Heart Catheterization, Tubal Ligation Additional Past Surgical History / Comment(s): 12/2017 CABG 3 vessel, lap banding, bilateral knee scopes, bilateral carpal tunnel releases, R eye has metal implant per pt d/t eyelid ligament problem, bilateral laser eye surgery for retinal bleeds, bilateral cataract removals/lens implants, bilateral hand trigger finger surgeries, EGD, colonoscopy, sinus surgery, pilonidal cystectomy, R temporal bx and mole removal (benign), R trunk benign mole removal, pain clinic procedures. Past Anesthesia/Blood Transfusion Reactions: No Reported Reaction Additional Past Anesthesia/Blood Transfusion Reaction / Comment(s): Pt has received blood without reaction. Past Psychological History: No Psychological Hx Reported Smoking Status: Former smoker Past Alcohol Use History: None Reported Past Drug Use History: None Reported - Past Family History Father Family Medical History: Cancer Additional Family Medical History / Comment(s): Pt does not recall type of cancer father had but it caused him to have an arm amputation. Mother Family Medical History: Diabetes Mellitus, Myocardial Infarction (SD) Additional Family Medical History / Comment(s): Mother of a SD at the age of 58yrs. Medications and Allergies Home Medications Medication Instructions Recorded Confirmed Type Ergocalciferol [Vitamin D2 50,000 unit PO SA 09/11/14 10/18/21 History (DRISDOL)] Latanoprost Ophth [Xalatan 0.005%] 1 drop BOTH EYES HS 09/11/14 10/18/21 History Clopidogrel [Plavix] 75 mg PO DAILY tab 02/03/18 10/18/21 Rx Multivitamins, Thera [Multivitamin 1 tab PO DAILY 07/19/18 10/18/21 History (formulary)] Ferrous Sulfate [Iron (65 MG 325 mg PO DAILY 11/29/18 10/18/21 History Elemental)] Fexofenadine HCl [Citlaly Allergy] 180 mg PO DAILY 11/29/18 10/18/21 History Fluticasone Nasal [place] [Flonase 1 spray EA NOSTRIL DAILY PRN 11/29/18 10/18/21 History Nasal [place]] Metoprolol Tartrate [Lopressor] 25 mg PO BID 11/29/18 10/18/21 History Nitroglycerin Sl Tabs [Nitrostat] 0.4 mg SUBLINGUAL Q5M PRN 11/29/18 10/18/21 History metFORMIN HCL 500 mg PO DAILY 11/29/18 10/18/21 History Losartan Potassium [Cozaar] 25 mg PO DAILY 12/12/18 10/18/21 History Aspirin 81 mg PO HS 12/26/18 10/18/21 History Isosorbide Mononitrate ER [Imdur] 60 mg PO DAILY 01/23/19 10/18/21 History polyethylene glycoL 3350 [Miralax] 17 gm PO Q48H PRN 01/23/19 10/18/21 History INSULIN LISPRO (humaLOG) [humaLOG] 4 units SQ AC-TID 04/02/19 10/18/21 History Atorvastatin [Lipitor] 80 mg PO HS 06/04/19 10/18/21 History Furosemide [Lasix] 20 mg PO DAILY 06/04/19 10/18/21 History INSULIN LISPRO (humaLOG) [humaLOG] See Protocol SQ TID PRN 06/04/19 10/18/21 History DULoxetine HCL [Cymbalta] 30 mg PO DAILY 10/18/21 10/18/21 History Dorzolamide 2% [Trusopt 2%] 1 drops BOTH EYES BID 10/18/21 10/18/21 History HYDROcodone/APAP 10-325MG [[place] 1 tab PO TID PRN 10/18/21 10/18/21 History 10-325] Hydrocortisone Cream 1 applic TOPICAL DAILY PRN 10/18/21 10/18/21 History [Hydrocortisone 1% Cream] Insulin Glargine,Hum.rec.anlog 18 unit SQ HS 10/18/21 10/18/21 History [Lantus Solostar Pen] Ketoconazole [Ketoconazole 2%] 1 applic TOPICAL DAILY PRN 10/18/21 10/18/21 History Miconazole Nitrate [Lotrimin AF 1 applic TOPICAL DAILY PRN 10/18/21 10/18/21 History Powder] Omeprazole 40 mg PO DAILY 10/18/21 10/18/21 History Semaglutide [Ozempic] 1 mg SQ BATEMAN 10/18/21 10/18/21 History Allergies Allergy/AdvReac Type Severity Reaction Status Date / Time diclofenac Allergy HIGH BLOOD Verified 10/18/21 08:15 SUGAR peanut Allergy PER Verified 10/18/21 08:15 ALLERGY TEST Penicillins Allergy ITCHING Verified 10/18/21 08:15 AND RED SKIN Physical Exam Vitals: Vital Signs Temp Pulse Pulse Resp BP BP Pulse Ox 10/18/21 11:29 98.4 F 68 14 118/72 99 10/18/21 10:42 68 18 140/70 99 10/18/21 09:30 69 18 135/61 98 12/19/21 08:13 68 18 135/63 98 10/18/21 06:22 97.9 F 80 18 148/71 100 Intake and Output 10/17/21 10/18/21 10/18/21 22:59 06:59 14:59 Other: Weight 110.223 kg PHYSICAL EXAMINATION: This is a 71-year-old female in no apparent distress at the time of my examination. VITAL SIGNS: Blood pressure 118/72, heart rate 68, respirations 14, temp 98.4F. Patient is 99 % on where. HEENT: Head is atraumatic, normocephalic. Pupils are equal, round. Sclerae anicteric. Conjunctivae are clear. Mucous membranes of the mouth are moist. Neck is supple. There is no elevated jugular venous pressure. No carotid bruit is heard. CHEST EXAMINATION: Clear to auscultation bilaterally. No wheezes rales or rhonchi. Respirations even and nonlabored. HEART EXAMINATION: Heart regular, positive S1 and S2. No S3. No S4. No clicks, rubs or murmurs. ABDOMEN: Soft, nontender. Bowel sounds are heard. No organomegaly noted. EXTREMITIES: 2+ peripheral pulses with evidence of trace peripheral edema and no calf tenderness noted. NEUROLOGIC EXAMINATION: Patient is awake, alert and oriented x3. Results 10/18/21 06:38 10/18/21 06:38 Cardiac Enzymes 10/18/21 10/18/21 10/18/21 Range/Units 06:38 06:38 10:25 AST 39 H (14-36) U/L Troponin I <0.012 <0.012 (0.000-0.034) ng/mL Coagulation 10/18/21 10/18/21 Range/Units 06:38 10:25 PT 10.1 10.2 (9.0-12.0) sec APTT 22.9 23.1 (22.0-30.0) sec CBC 10/18/21 Range/Units 06:38 WBC 4.8 (3.8-10.6) k/uL RBC 3.39 L (3.80-5.40) m/uL Hgb 11.5 (11.4-16.0) gm/dL Hct 33.5 L (34.0-46.0) % Plt Count 233 (150-450) k/uL Comprehensive Metabolic Panel 10/18/21 Range/Units 06:38 Sodium 138 (137-145) mmol/L Potassium 4.7 (3.5-5.1) mmol/L Chloride 106 (98-107) mmol/L Carbon Dioxide 21 L (22-30) mmol/L BUN 20 H (7-17) mg/dL Creatinine 0.93 (0.52-1.04) mg/dL Glucose 266 H (74-99) mg/dL Calcium 9.4 (8.4-10.2) mg/dL AST 39 H (14-36) U/L ALT 25 (4-34) U/L Alkaline Phosphatase 99 (38-126) U/L Total Protein 7.1 (6.3-8.2) g/dL Albumin 3.6 (3.5-5.0) g/dL Current Medications Generic Name Dose Route Start Last Admin Trade Name Freq PRN Reason Stop Dose Admin Hydrocodone Bitart/Acetaminophen 2 each 10/18/21 07:42 Hydrocodone/Apap 5-325mg 1 Each Tab PO BID PRN Pain Hydrocodone Bitart/Acetaminophen 1 each 10/18/21 09:46 Hydrocodone/Apap 10-325mg 1 Each Tab PO TID PRN Pain Aspirin 81 mg 10/18/21 21:00 Aspirin 81 Mg PO HS [facility] Atorvastatin Calcium 80 mg 10/18/21 09:00 10/18/21 09:27 Atorvastatin 80 Mg Tab PO 80 mg DAILY [place] Administration Citalopram Hydrobromide 20 mg 10/18/21 09:00 10/18/21 09:26 Citalopram Hydrobromide 20 Mg Tab PO 20 mg DAILY MI Administration Clopidogrel Bisulfate 75 mg 10/18/21 09:00 10/18/21 09:27 Clopidogrel 75 Mg Tab PO 75 mg DAILY MI Administration Clotrimazole 1 applic 10/18/21 09:46 Clotrimazole 1% Cream 30 Gm Tube TOPICAL DAILY PRN Rash Dorzolamide HCl 1 drops 10/18/21 21:00 Dorzolamide Hcl 2% Drops 10 Ml Btl BOTH EYES BID [facility] Duloxetine HCl 30 mg 10/19/21 09:00 Duloxetine Hcl 30 Mg Capsule.Dr PO DAILY [facility] Ferrous Sulfate 325 mg 10/18/21 09:00 10/18/21 09:26 Ferrous Sulfate 325 Mg Tab PO 325 mg DAILY [place] Administration Furosemide 20 mg 10/18/21 09:00 10/18/21 09:26 Furosemide 20 Mg Tab PO 20 mg BID MI Administration Heparin Sodium (Porcine) 0 unit 10/18/21 09:40 Heparin Sodium 1,000 Un/Ml (10ml Vl) IV PER PROTOCOL PRN Low PTT Protocol Heparin Sodium/Sodium Chloride 250 mls @ 9.997 mls/hr 10/18/21 09:45 10/18/21 13:05 25,000 unit/ Sodium Chloride IV 9.07 units/kg/hr .Q24H MI 9.997 mls/hr Administration Protocol 9.07 UNITS/KG/HR Insulin Aspart 0 unit 10/18/21 12:30 10/18/21 13:02 Insulin Aspart (Novolog) 100 Unit/Ml Vial SQ 3 unit AC-TID MI Administration Protocol Insulin Aspart 4 unit 10/18/21 17:30 10/18/21 13:02 Insulin Aspart (Novolog) 100 Unit/Ml Vial SQ 4 unit AC-TID MI Administration Insulin Detemir 18 unit 10/18/21 21:00 Insulin Detemir (Levemir) 100 Unit/Ml Syr SQ HS [place] Isosorbide Mononitrate 60 mg 10/18/21 09:00 10/18/21 09:26 Isosorbide Mononitrate Er 60 Mg Tab.Er.24h PO 60 mg DAILY [place] Administration Latanoprost 1 drops 10/18/21 21:00 Latanoprost 0.005% Ophth Drops 2.5 Ml Btl RIGHT EYE HS MI Loratadine 10 mg 10/18/21 09:00 10/18/21 09:26 Loratadine 10 Mg Tab PO 10 mg DAILY MI Administration Losartan Potassium 25 mg 10/18/21 09:00 10/18/21 09:27 Losartan 25 Mg Tab PO 25 mg DAILY MI Administration Metoprolol Tartrate 25 mg 10/18/21 09:00 10/18/21 09:27 Metoprolol Tartrate 25 Mg Tab PO 25 mg BID MI Administration Multivitamins 1 each 10/18/21 09:00 10/18/21 09:27 Multivitamins, Thera 1 Each Tab PO 1 each DAILY MI Administration Nystatin 1 applic 10/18/21 09:46 Nystatin 100,000 Unit/Gm Powd 15 Gm TOPICAL DAILY PRN Rash Pantoprazole Sodium 40 mg 10/18/21 17:30 Pantoprazole 40 Mg Tablet PO AC-BID MI Polyethylene Glycol 17 gm 10/18/21 07:42 Polyethylene Glycol 3350 17 Gm Powd.Pack PO DAILY PRN Constipation Timolol Maleate 1 drops 10/18/21 09:00 Timolol 0.5% Ophth Drops 5 Ml Btl BOTH EYES BID MI Intake and Output 10/17/21 10/18/21 10/18/21 22:59 06:59 14:59 Other: Weight 110.223 kg 10/18/21 06:38 10/18/21 06:38 Assessment and Plan Assessment: #1 symptoms of left shoulder blade pain radiating into her jaw as well as left chest pressure, troponins negative 2, EKG shows no ischemic changes #2 CAD with prior CABG #3 hypertension #4 hyperlipidemia #5 diabetes #6 fibromyalgia Plan: From cardiology perspective continue to trend the troponins. We will plan for Lexiscan Cardiolite to be done in the morning. We will obtain a 2-D echo with Doppler study to assess cardiac structure and function. We will continue to follow the patient and provide further recommendations accordingly. [employer] MA[employer]GER note has been reviewed, I agree with a documented findings and plan of care. Patient was seen and examined.
[2021-10-18 17:05] LABS: Glucose,Whole Blood 206 mg/dL (75-99)
[2021-10-18] MEDS: PANTOPRAZOLE 40 MG TABLET PO SCH (17:52)
[2021-10-18] MEDS: TIMOLOL 0.5% OPHTH DROPS 5 ML BTL BOTH EYES SCH ×2 (18:20→22:24)
[2021-10-18] MEDS ORDERED: LATANOPROST 0.005% OPHTH DROPS 2.5 ML BTL RIGHT EYE SCH (21:00)
[2021-10-18] MEDS ORDERED: INSULIN DETEMIR (LEVEMIR) 100 UNIT/ML SYR SQ SCH (21:00)
[2021-10-18] MEDS ORDERED: ASPIRIN 81 MG PO SCH (21:00)
[2021-10-18] MEDS: HYDROcodone/APAP 10-325MG 1 EACH TAB PO PRN (22:32)
[2021-10-18 22:49] LABS: Glucose,Whole Blood 166 mg/dL (75-99)
[2021-10-19] MEDS: DORZOLAMIDE HCL 2% DROPS 10 ML BTL BOTH EYES SCH ×2 (00:18→08:20)
[2021-10-19 04:15] VITALS: RESP 15
[2021-10-19] MEDS ORDERED: REGADENOSON 0.4 MG/5 ML SYRINGE IV PRN (06:00)
[2021-10-19] MEDS ORDERED: AMINOPHYLLINE 500 MG/20 ML VIAL IV PRN (06:00)
[2021-10-19] MEDS ORDERED: CAFFEINE CITRATE 60 MG/3 ML VIAL IV PRN (06:00)
[2021-10-19 06:09] LABS: Prothrombin Time 10.9 sec (9.0-12.0)
[2021-10-19 07:25] LABS: Glucose,Whole Blood 155 mg/dL (75-99)
[2021-10-19 07:40] VITALS: BP 155/74; PULSE 65; TEMP 97.9
[2021-10-19] MEDS: INSULIN ASPART (NovoLOG) 100 UNIT/ML VIAL SQ SCH ×4 (08:13→12:45)
[2021-10-19] MEDS: LORATADINE 10 MG TAB PO SCH (08:18)
[2021-10-19] MEDS: CLOPIDOGREL 75 MG TAB PO SCH (08:18)
[2021-10-19] MEDS: FUROSEMIDE 20 MG TAB PO SCH (08:18)
[2021-10-19] MEDS: ISOSORBIDE MONONITRATE ER 60 MG TAB.ER.24H PO SCH (08:18)
[2021-10-19] MEDS: CITALOPRAM HYDROBROMIDE 20 MG TAB PO SCH (08:18)
[2021-10-19] MEDS: MULTIVITAMINS, THERA 1 EACH TAB PO SCH (08:18)
[2021-10-19] MEDS: FERROUS SULFATE 325 MG TAB PO SCH (08:18)
[2021-10-19] MEDS: LOSARTAN 25 MG TAB PO SCH (08:18)
[2021-10-19] MEDS: PANTOPRAZOLE 40 MG TABLET PO SCH (08:18)
[2021-10-19] MEDS: ATORVASTATIN 80 MG TAB PO SCH (08:19)
[2021-10-19] MEDS: TIMOLOL 0.5% OPHTH DROPS 5 ML BTL BOTH EYES SCH (08:19)
[2021-10-19] MEDS ORDERED: ASPIRIN 325 MG TAB PO SCH (09:00)
[2021-10-19] MEDS ORDERED: DULoxetine HCL 30 MG CAPSULE.DR PO SCH (09:00)
[2021-10-19 09:21] LABS: HCT 34.1 % (37.2-46.3); MCH 32.9 pg (27.0-32.0); MCHC 32.3 g/dL (32.0-37.0); MCV 102.1 fL (80.0-97.0); Mean Platelet Volume 9.9 fL (9.5-12.2); Platelet Count 242 X 10*3/uL (140-440); RBC 3.34 X 10*6/uL (4.10-5.20); RDW 13.1 % (11.5-14.5); WBC 6.32 X 10*3/uL (4.50-10.00)
[2021-10-19] MEDS ORDERED: REGADENOSON 0.4 MG/5 ML SYRINGE IV ONE (10:10)
--- NOTE | 2021-10-19 11:06 | P.PN ---
Subjective Progress Note Date: 10/19/21 HISTORY OF PRESENT ILLNESS: This is a pleasant 71-year-old female patient who follows in the office with Dr. Juarez. She has a history of CAD status post CABG, hypertension, hyperl ipidemia, diabetes, and fibromyalgia. Presented with complaints of left shoulder blade pain radiating into her left jaw. She feels this is different compared to what she felt prior to her CABG however different compared to what she normally experiences with her fibromyalgia pain. She did take in nature glycerin and 4 baby aspirin with some relief but pain subsequently returned she decided to come to the emergency department. EKG showed normal sinus mechanism with no evidence of ischemia. Troponins have been negative 2. Chest x-ray showed prior CABG surgery, no acute cardiopulmonary disease, no interval change since previous. Upon examination the patient is resting comfortably in bed. She complains of generalized discomfort from her fibromyalgia but has no further complaints of left shoulder blade pain. She also mentions a left-sided pressure-like discomfort in her chest at times. This is separate from the pain in the shoulder blade. 10/19/2021 Patient examined this morning. Patient denies chest pain or pressure. She does report generalized pain secondary to her fibromyalgia. She denies shortness of breath. Vital signs are stable. PHYSICAL EXAM: VITAL SIGNS: Reviewed. GENERAL: Well-developed in no acute distress. NECK: Supple. No JVD or thyromegaly LUNGS: Respirations even and unlabored. Lungs essentially clear to auscultation bilaterally. HEART: Regular rate and rhythm. S1 and S2 heard. EXTREMITIES: Normal range of motion. No clubbing or cyanosis. Peripheral pulses intact. No lower extremity edema ASSESSMENT: #1 symptoms of left shoulder blade pain radiating into her jaw as well as left chest pressure, troponins negative 2, EKG shows no ischemic changes #2 CAD with prior CABG #3 hypertension #4 hyperlipidemia #5 diabetes #6 fibromyalgia PLAN: 2-D echo ordered. Await results. Patient to undergo Lexiscan stress test today. If Lexiscan is negative for ischemia and echocardiogram does not reveal any significant abnormalities, the patient may be discharged home today in follow-up in the office with Dr. Juarez Nurse practitioner note has been reviewed by physician. Signing provider agrees with the documented findings, assessment, and plan of care. Objective - Vital Signs Vital signs: Vital Signs Temp 97.9 F 10/19/21 07:25 Pulse 65 10/19/21 07:25 Resp 15 10/19/21 07:25 BP 155/74 10/19/21 07:25 Pulse Ox 100 10/19/21 07:40 Intake & Output 10/18/21 10/19/21 10/19/21 18:59 06:59 18:59 Intake Total 118 92.306 120.596 Balance 118 92.306 120.596 Weight 110.223 kg Intake: Intake, IV Titration 92.306 120.596 Amount Heparin Sod,Pork in 0.45% 92.306 120.596 NaCl 25,000 unit In 0.45 % NaCl 1 250ml.bag @ 9.07 UNITS/KG/HR 9.997 mls/hr IV .Q24H [facility] Rx#: [id number] Oral 118 Other: Voiding Method Diaper Diaper Diaper Incontinent Incontinent Incontinent # Voids 1 2 - Labs CBC & Chem 7: 10/19/21 05:30 10/18/21 06:38 Labs: Abnormal Lab Results - Last 24 Hours (Table) 10/18/21 10/18/21 10/18/21 Range/Units 11:31 16:25 17:03 RBC (4.10-5.20) X 10*6/uL Hgb (12.0-15.0) g/dL Hct (37.2-46.3) % MCV (80.0-97.0) fL MCH (27.0-32.0) pg APTT 35.3 H (22.0-30.0) sec POC Glucose (mg/dL) 217 H 206 H (75-99) mg/dL 10/18/21 10/18/21 10/19/21 Range/Units 20:27 22:48 05:30 RBC 3.34 L (4.10-5.20) X 10*6/uL Hgb 11.0 L (12.0-15.0) g/dL Hct 34.1 L (37.2-46.3) % MCV 102.1 H (80.0-97.0) fL MCH 32.9 H (27.0-32.0) pg APTT 40.0 H (22.0-30.0) sec POC Glucose (mg/dL) 166 H (75-99) mg/dL 10/19/21 10/19/21 Range/Units 05:30 07:24 RBC (4.10-5.20) X 10*6/uL Hgb (12.0-15.0) g/dL Hct (37.2-46.3) % MCV (80.0-97.0) fL MCH (27.0-32.0) pg APTT 78.6 H (22.0-30.0) sec POC Glucose (mg/dL) 155 H (75-99) mg/dL
[2021-10-19] MEDS: HYDROcodone/APAP 10-325MG 1 EACH TAB PO PRN (11:52)
[2021-10-19] MEDS: METOPROLOL TARTRATE 25 MG TAB PO SCH (11:53)
--- NOTE | 2021-10-19 11:57 | NM ---
EXAMINATION TYPE: NM stress lexiscan cardiolite DATE OF EXAM: 10/19/2021 COMPARISON: NONE HISTORY: Chest pain TECHNIQUE: After the intravenous administration of 9.5 mCi Tc 99m Sestamibi - Cardiolite resting SPE CT images acquired 50 minutes post injection. The patient received 0.4mg Lexiscan, 26.6 mCi Tc 99m Sestamibi - Stress images obtained [address] injection FINDINGS: Review of stress and rest SPECT images demonstrates persistent defect involving the lateral myocardiu m limits assessment wall motion in this region.. Gated analysis shows normal wall motion with an est imated left ventricular ejection fraction of 67 %. IMPRESSION: 1. There is a fixed defect involving the lateral myocardium which should be correlated with EKG and c linical exam. Although no definite stress-induced reversible defect is seen a tiny area cannot be exc luded by this exam correlate clinically.
[2021-10-19 12:12] LABS: Glucose,Whole Blood 176 mg/dL (75-99)
[2021-10-19 13:27] LABS: Magnesium 2.1 mg/dL (1.5-2.4)
[2021-10-19 13:36] LABS: ALT 22 U/L (8-44); AST 24 U/L (13-35); African American GFR (CKD) 64.1 (60.0-200.0); Albumin 3.6 g/dL (3.8-4.9); Albumin/Globulin Ratio 1.24 (1.60-3.17); Alkaline Phosphatase 74 U/L (41-126); BUN/Creat Ratio 18.14 Ratio (12.00-20.00); Blood Urea Nitrogen 18.5 mg/dL (9.0-27.0); Calcium 9.1 mg/dL (8.7-10.3); Carbon Dioxide 21.4 mmol/L (20.0-27.5); Chloride 109 mmol/L (96-109); Chol/HDL Ratio 2.15 Ratio; Globulin 2.9 g/dL (1.6-3.3); Glucose 159 mg/dL (70-110); LDL Cholesterol,Calculated 45.6 mg/dL (0.0-131.0); Non-African American GFR(CKD) 55.3 (60.0-200.0); Potassium 4.5 mmol/L (3.5-5.5); Sodium 142 mmol/L (135-145); Total Protein 6.6 g/dL (6.2-8.2)
--- NOTE | 2021-10-19 14:21 | P.DS ---
Providers Date of admission: 10/18/21 07:47 Expected date of discharge: 10/19/21 Attending physician: Miriam Sierra DO Primary care physician: Mer Rabago Hospital Course: Discharge Diagnosis: Unstable angina History of CAD status post triple bypass in 2016 Hypertension Hyperlipidemia Insulin-dependent diabetes mellitus type 2 Glaucoma GERD Fibromyalgia Hospital Course: Patient is a very pleasant 71-year-old female with a past medical history of CAD status post triple bypass in 2016 on dual antiplatelet therapy with aspirin and Plavix, hypertension, hyperlipidemia, insulin-dependent diabetes mellitus type 2 with most recent hemoglobin A1c of 6.7%, glaucoma, peripheral vascular disease, GERD, and fibromyalgia. Patient presented to the emergency department today with a chief complaint of chest pain. Patient reported awakening in the morning around 4:30 AM with some pain in her upper back, chest, and radiating into her jaw. Patient reported because of her history she immediately took an aspirin and a nitro which seemed to provide slight improvement, patient stated she took 2 additional nitros which somewhat relieved the pain. Patient stateed short while later pain returned so she came to the emergency department for evaluation. Patient was seen and fully evaluated in the emergency department. An EKG completed revealing normal sinus rhythm at 69 bpm with no noted T-wave or ST abnormalities. Chest x-ray revealing expected postsurgical changes from previous bypass reporting no acute cardiopulmonary process. Labs showing no significant abnormalities with the exception of hyperglycemia with glucose of 266. Troponin was negative at less than 0.012. Patient was started on heparin infusion per ACS protocol and admitted under our services with consultation to cardiology. Patient was monitored overnight and had full resolution of chest pain. Troponins were trended 3 all resulting at < 0.012. Lexiscan stress test was completed revealing a fixed defect involving lateral myocardium which should be correlated with EKG and clinical examination in no definite stress-induced reversible defect seen within EF of 67%. Cardiology clearing patient for discharge recommending follow-up in their office in one week. Lipid profile unremarkable and morning labs remained unremarkable. Patient being discharged home at this time and instructed to continue daily cardiac medication regimen consisting of Plavix, aspirin, metoprolol, losartan, Imdur, and atorvastatin. Patient's PCP, Dr. Rabago is no longer seeing patients, patient referred to follow-up with recommended PCP, Dr. Waters in 1-2 days and with cardiology, Dr. Juarez, in 1 week Physical exam: Vital signs reviewed and stable. General: Nontoxic, no distress and appears stated age. Obese. Derm: Skin warm and dry, normal coloration for ethnicity. Head: Atraumatic, normocephalic and symmetric. Eyes: EOMs intact, no lid lag, and anicteric sclera Mouth: no lip lesions, mucus membranes moist Cardiovascular: regular rate and rhythm with normal S1S2, no murmur, positive posterior tibial pulses bilaterally, and cap refill < 2 seconds. Lungs: Respirations even, regular, and unlabored on room air. Lungs slightly diminished with no rhonchi, no rales, no wheezing, and no accessory muscle usage. Abdominal: Obese abdomen, soft, nontender to palpation, no guarding, no appreciable organomegaly Ext: ROM intact. No gross muscle atrophy, no edema, no contractures. Neuro: Speech clear, face symmetrical and CN II-XII grossly intact with no noted focal neuro deficits. Psych: Alert and oriented to person, place, time, and situation. Appropriate and pleasant affect. A total of 45 minutes of time were spent preparing this complex discharge summary. Patient Condition at Discharge: Stable Plan - Discharge Summary Discharge Rx Participant: Yes New Discharge Prescriptions: Continue Latanoprost Ophth [Xalatan 0.005%] 1 drop BOTH EYES HS Ergocalciferol [Vitamin D2 (DRISDOL)] 50,000 unit PO SA Clopidogrel [Plavix] 75 mg PO DAILY tab Multivitamins, Thera [Multivitamin (formulary)] 1 tab PO DAILY Fluticasone Nasal [place] [Flonase Nasal [place]] 1 spray EA NOSTRIL DAILY PRN PRN Reason: Congestion Nitroglycerin Sl Tabs [Nitrostat] 0.4 mg SUBLINGUAL Q5M PRN PRN Reason: Chest Pain Metoprolol Tartrate [Lopressor] 25 mg PO BID Fexofenadine HCl [Citlaly Allergy] 180 mg PO DAILY metFORMIN HCL 500 mg PO DAILY Ferrous Sulfate [Iron (65 MG Elemental)] 325 mg PO DAILY Losartan Potassium [Cozaar] 25 mg PO DAILY Aspirin 81 mg PO HS polyethylene glycoL 3350 [Miralax] 17 gm PO Q48H PRN PRN Reason: Constipation Isosorbide Mononitrate ER [Imdur] 60 mg PO DAILY INSULIN LISPRO (humaLOG) [humaLOG] 4 units SQ AC-TID Atorvastatin [Lipitor] 80 mg PO HS Furosemide [Lasix] 20 mg PO DAILY INSULIN LISPRO (humaLOG) [humaLOG] See Protocol SQ TID PRN PRN Reason: Blood Sugar - High Omeprazole 40 mg PO DAILY HYDROcodone/APAP 10-325MG [Bryant 10-325] 1 tab PO TID PRN PRN Reason: Pain Insulin Glargine,Hum.rec.anlog [Lantus Solostar Pen] 18 unit SQ HS Miconazole Nitrate [Lotrimin AF Powder] 1 applic TOPICAL DAILY PRN PRN Reason: Rash DULoxetine HCL [Cymbalta] 30 mg PO DAILY Ketoconazole [Ketoconazole 2%] 1 applic TOPICAL DAILY PRN PRN Reason: Rash Hydrocortisone Cream [Hydrocortisone 1% Cream] 1 applic TOPICAL DAILY PRN PRN Reason: Itching Dorzolamide 2% [Trusopt 2%] 1 drops BOTH EYES BID Semaglutide [Ozempic] 1 mg SQ BATEMAN Discharge Medication List Ergocalciferol [Vitamin D2 (DRISDOL)] 50,000 unit PO SA 09/11/14 [History] Latanoprost Ophth [Xalatan 0.005%] 1 drop BOTH EYES HS 09/11/14 [History] Clopidogrel [Plavix] 75 mg PO DAILY tab 02/03/18 [Rx] Multivitamins, Thera [Multivitamin (formulary)] 1 tab PO DAILY 07/19/18 [History] Ferrous Sulfate [Iron (65 MG Elemental)] 325 mg PO DAILY 11/29/18 [History] Fexofenadine HCl [Citlaly Allergy] 180 mg PO DAILY 11/29/18 [History] Fluticasone Nasal [place] [Flonase Nasal [place]] 1 spray EA NOSTRIL DAILY PRN 11/29/18 [History] Metoprolol Tartrate [Lopressor] 25 mg PO BID 11/29/18 [History] Nitroglycerin Sl Tabs [Nitrostat] 0.4 mg SUBLINGUAL Q5M PRN 11/29/18 [History] metFORMIN HCL 500 mg PO DAILY 11/29/18 [History] Losartan Potassium [Cozaar] 25 mg PO DAILY 12/12/18 [History] Aspirin 81 mg PO HS 12/26/18 [History] Isosorbide Mononitrate ER [Imdur] 60 mg PO DAILY 01/23/19 [History] polyethylene glycoL 3350 [Miralax] 17 gm PO Q48H PRN 01/23/19 [History] INSULIN LISPRO (humaLOG) [humaLOG] 4 units SQ AC-TID 04/02/19 [History] Atorvastatin [Lipitor] 80 mg PO HS 06/04/19 [History] Furosemide [Lasix] 20 mg PO DAILY 06/04/19 [History] INSULIN LISPRO (humaLOG) [humaLOG] See Protocol SQ TID PRN 06/04/19 [History] DULoxetine HCL [Cymbalta] 30 mg PO DAILY 10/18/21 [History] Dorzolamide 2% [Trusopt 2%] 1 drops BOTH EYES BID 10/18/21 [History] HYDROcodone/APAP 10-325MG [Bryant 10-325] 1 tab PO TID PRN 10/18/21 [History] Hydrocortisone Cream [Hydrocortisone 1% Cream] 1 applic TOPICAL DAILY PRN 10/18/21 [History] Insulin Glargine,Hum.rec.anlog [Lantus Solostar Pen] 18 unit SQ HS 10/18/21 [History] Ketoconazole [Ketoconazole 2%] 1 applic TOPICAL DAILY PRN 10/18/21 [History] Miconazole Nitrate [Lotrimin AF Powder] 1 applic TOPICAL DAILY PRN 10/18/21 [History] Omeprazole 40 mg PO DAILY 10/18/21 [History] Semaglutide [Ozempic] 1 mg SQ BATEMAN 10/18/21 [History] Follow up Appointment(s)/Referral(s): Hilaria Juarez MD [STAFF PHYSICIAN] - 1 Week Robby Waters MD [REFERRING] - 1-2 Days Activity/Diet/Wound Care/Special Instructions: Activity: As tolerated. Take breaks as needed. Diet: Heart healthy and carb consistent diet. Avoid salts, or foods with hidden salts such as canned or boxed foods and frozen dinners. Extra salt makes your heart work harder and traps the fluid in your body for longer. Special Instructions: Take all of your medications as directed and remember to keep all of your doctor's appointments and follow-up as needed. Thank you for allowing us to participate in your care, it was truly a pleasure having you for our patient!!! Discharge Disposition: HOME SELF-CARE
--- NOTE | 2021-10-19 15:49 | EST ---
EXERCISE STRESS AGE: 71 SEX: F HT: 5'7" WT: 242 lbs. PROTOCOL: Lexiscan STAGE: NA DURATION OF EXERCISE: 5 minutes HEART RATE REST: 62 BLOOD PRESSURE REST: 153/83 MAXIMUM HEART RATE ACHIEVED: 76 MAXIMUM BLOOD PRESSURE: 151/62 85% MPHR: 127 100% MPHR: 149 METS: NA INDICATIONS: Chest pain CLINICAL INFORMATION: STRESS DATA: Heart rate is 62, pressure 153/83 mmHg. Baseline EKG showed sinus mechanism. 0.4 mg of Lexiscan was given over 15 seconds per protocol. Max heart rate was 76 beats per minute. Maximum pressure was 151/62 mmHg. Clinically the patient did not have any symptoms and the EKG did not show any significant ST or T-wave abnormalities concerning for ischemia. CONCLUSION: 1. Nondiagnostic electrocardiogram stress testing in response to Lexiscan. 2. Please follow up on the Cardiolite portion on stress on a separate report from Radiology Department. MMODL / IJN: [id number] /
--- NOTE | 2021-10-21 10:00 | ECHOF ---
Referral Reason:assess structure and function, unstable angina MEASUREMENTS -------- HEIGHT: 170.2 cm WEIGHT: 110.2 kg BP: 106/56 RVIDd: 3.8 cm (< 3.3) IVSd: 1.4 cm (0.6 - 1.1) LVIDd: 3.7 cm (3.9 - 5.3) LVPWd: 1.4 cm (0.6 - 1.1) IVSs: 1.5 cm LVIDs: 2.7 cm LVPWs: 1.7 cm LA Diam: 4.1 cm (2.7 - 3.8) MV E Sha: 1.05 m/s MV DecT: 407 ms MV A Sha: 1.11 m/s MV E/A Ratio: 0.95 FINDINGS -------- Undetermined rhythm. This was a techncally difficult study with suboptimal views, , Definity utilized for enhancement of i mages. There is moderate concentric left ventricular hypertrophy. Overall left ventricular systolic functi on is low-normal with, an EF between 50 - 55 %. The right ventricle is mild to moderately enlarged. The left atrium is mildly dilated. The right atrial size is normal. Lumason used The aortic valve was not well visualized. Moderate mitral annular calcification present. Mild mitral regurgitation is present. The peak an d mean MV gradients are 5.85mmHg 1.86mmHg as measured by doppler. No regurgitation noted Unable to estimate RVSP due to inadequate TR jet spectral doppler profile. The pulmonic valve was not well visualized. There is no pericardial effusion. CONCLUSIONS -------- 1. This was a techncally difficult study with suboptimal views, , Definity utilized for enhancement o f images. 2. There is moderate concentric left ventricular hypertrophy. 3. Overall left ventricular systolic function is low-normal with, an EF between 50 - 55 %. 4. The right ventricle is mild to moderately enlarged. 5. The left atrium is mildly dilated. 6. The right atrial size is normal. 7. Lumason used 8. The aortic valve was not well visualized. 9. Moderate mitral annular calcification present. 10. Mild mitral regurgitation is present. 11. The peak and mean MV gradients are 5.85mmHg 1.86mmHg as measured by doppler. 12. No regurgitation noted 13. Unable to estimate RVSP due to inadequate TR jet spectral doppler profile. 14. The pulmonic valve was not well visualized. 15. There is no pericardial effusion. OFFICE ADMIN: April Farnsworth RDCS
== END 2021-10-19 15:50 | disposition home or self-care (01) ==
LOC: EC 06:20 → 6NMEDSUR 07:47
PROVIDERS: ADMIT Internal Medicine; ATTEND Internal Medicine
DX: I25.110 Atherosclerotic heart disease of native coronary artery with unstable angina pectoris (principal); Z95.1 Presence of aortocoronary bypass graft; I10 Essential (primary) hypertension; E78.5 Hyperlipidemia, unspecified; K21.9 Gastro-esophageal reflux disease without esophagitis; M79.7 Fibromyalgia; H40.9 Unspecified glaucoma; I73.9 Peripheral vascular disease, unspecified; E11.65 Type 2 diabetes mellitus with hyperglycemia; R32 Unspecified urinary incontinence; I25.2 Old myocardial infarction; M19.90 Unspecified osteoarthritis, unspecified site; E11.319 Type 2 diabetes mellitus with unspecified diabetic retinopathy without macular edema; G43.909 Migraine, unspecified, not intractable, without status migrainosus; G89.29 Other chronic pain; M54.42 Lumbago with sciatica, left side; M54.41 Lumbago with sciatica, right side; R26.81 Unsteadiness on feet; G62.9 Polyneuropathy, unspecified; I34.0 Nonrheumatic mitral (valve) insufficiency; E66.9 Obesity, unspecified; Z68.38 Body mass index [BMI] 38.0-38.9, adult; Z20.822 Contact with and (suspected) exposure to COVID-19; Z87.440 Personal history of urinary (tract) infections; Z87.891 Personal history of nicotine dependence; Z79.02 Long term (current) use of antithrombotics/antiplatelets; Z79.899 Other long term (current) drug therapy; Z79.84 Long term (current) use of oral hypoglycemic drugs; Z79.82 Long term (current) use of aspirin; Z79.4 Long term (current) use of insulin; Z96.1 Presence of intraocular lens; Z71.9 Counseling, unspecified; Z90.49 Acquired absence of other specified parts of digestive tract; Z98.84 Bariatric surgery status; Z88.0 Allergy status to penicillin; Z88.8 Allergy status to other drugs, medicaments and biological substances; Z91.010 Allergy to peanuts; Z80.9 Family history of malignant neoplasm, unspecified; Z83.3 Family history of diabetes mellitus; Z82.49 Family history of ischemic heart disease and other diseases of the circulatory system
CPT/HCPCS: 96376; 96365; 96366 ×2; 99285; 36415; 93005; 93017; 80061; 80053 ×2; 83735 ×2; 84484; 85025; 85027; 85610 ×2; 85730 ×2; 87635; 71046; 78452; G0378 ×2; C8929; A9500; J1644 ×2; J2785; Q9950; 93306

== ENCOUNTER → 2022-06-25 | Outpatient (CLI) | payer MEDICARE ==
--- NOTE | 2022-06-25 12:36 | FL ---
EXAMINATION TYPE: FL barium swallow DATE OF EXAM: 06/25/2022 COMPARISON: None HISTORY: Dysphasia, lap band since 2008 TECHNIQUE: A single contrast esophagram and limited upper GI study is performed. FINDINGS: Slight LAP-BAND is present on the shank cementer hand view. This has a somewhat horizontal positioning. T ubing appears intact as visualized. Contrast extends towards the distal esophagus. This also is mildly patulous. Note is made of retained debris within the distal esophagus. The lap band has mild narrowing through the gastroesophageal veronica ction. However, significant hesitancy of contrast passing through this region is not evident. There i s empty visualized during the exam. It appears to be some reflux through this region. Few tertiary co ntractions were evident during the exam. Images: 13 Fluoroscopy time: 34 seconds IMPRESSIONS: 1. Some has density passing through the gastroesophageal junction without obstruction. 2. Retained debris within the distal esophagus. 3. Presbyesophagus. 4. There appear to be emptying of the esophagus, with contrast on additional delayed images. Some ref lux is not entirely excluded.
== END | disposition home or self-care (01) ==
LOC: RADUSWWP 08:43
PROVIDERS: ATTEND Surgery Plastic and Reconstructive Surgery
DX: K22.89 Other specified disease of esophagus (principal); R13.10 Dysphagia, unspecified
CPT/HCPCS: 74220

== ENCOUNTER → 2022-07-07 | Outpatient (CLI) | payer MEDICARE ==
[2022-07-07 09:04] LABS: Creatinine,Urine Random 84.9 mg/dL; Protein/Creatinine Ratio,Urine 0.153
[2022-07-07 09:10] LABS: Appearance,Urine Cloudy (Clear); Bacteria,Urine Rare /hpf; Bilirubin,Urine Negative (Negative); Blood,Urine Negative (Negative); Color,Urine Light Yellow; Glucose,Urine (UA) Negative (Negative); Ketones,Urine Negative (Negative); Leukocyte Esterase,Urine Large (Negative); Mucus,Urine Rare /hpf; Nitrite,Urine Negative (Negative); PH, Urine 6.5 (5.0-8.0); Protein,Urine Trace (Negative); RBC,Urine 1 /hpf (0-5); Specific Gravity,Urine 1.015 (1.001-1.035); Squamous Epithelial Cell,Urine 5 /hpf (0-4); Urobilinogen,Urine <2.0 mg/dL (<2.0); WBC,Urine 41 /hpf (0-5)
[2022-07-07 10:28] LABS: Basophils # (A) 0.02 X 10*3/uL (0.00-0.10); Basophils % (A) 0.4 %; Eosinophils # (A) 0.22 X 10*3/uL (0.04-0.35); HCT 34.4 % (37.2-46.3); HGB 11.2 g/dL (12.0-15.0); Immature Grans, Automated 0.6 %; Lymphocytes # (A) 1.35 X 10*3/uL (0.90-5.00); Lymphocytes % (A) 24.8 %; MCH 32.4 pg (27.0-32.0); MCHC 32.6 g/dL (32.0-37.0); MCV 99.4 fL (80.0-97.0); Mean Platelet Volume 9.4 fL (9.5-12.2); Monocytes # (A) 0.33 X 10*3/uL (0.20-1.00); Monocytes % (A) 6.1 %; NRBC Per 100 WBC 0 /100 WBCS (0.0-0.0); Neutrophils % (A) 64.1 %; Platelet Count 266 X 10*3/uL (140-440); RBC 3.46 X 10*6/uL (4.10-5.20); RDW 12.7 % (11.5-14.5); WBC 5.45 X 10*3/uL (4.50-10.00)
[2022-07-07 14:27] LABS: African American GFR (CKD) 58.5 (60.0-200.0); Anion Gap 11.9 mmol/L (10.00-18.00); Blood Urea Nitrogen 13.2 mg/dL (9.0-27.0); Calcium 9.4 mg/dL (8.7-10.3); Carbon Dioxide 23.1 mmol/L (20.0-27.5); Magnesium 2.2 mg/dL (1.5-2.4); Non-African American GFR(CKD) 50.5 (60.0-200.0); Phosphorus 3.5 mg/dL (2.4-5.1); Potassium 4.1 mmol/L (3.5-5.5)
[2022-07-07 14:28] LABS: % Iron Saturation 23.81 (12.00-45.00); Uric Acid 6.8 mg/dL (2.9-7.7)
[2022-07-07 14:49] LABS: Albumin 3.9 g/dL (3.8-4.9)
== END | disposition home or self-care (01) ==
LOC: LABWHC1 07:06
PROVIDERS: ATTEND Internal Medicine Nephrology
DX: E83.39 Other disorders of phosphorus metabolism (principal); N18.31 Chronic kidney disease, stage 3a; D64.9 Anemia, unspecified; M10.9 Gout, unspecified; N39.0 Urinary tract infection, site not specified
CPT/HCPCS: 36415; 80048; 81001; 82040; 82306; 82570; 82728; 83540; 83550; 83735; 83970; 84100; 84156; 84550; 85025; 87086

== ENCOUNTER 2022-08-04 07:05 | Day surgery (SDC) | payer MEDICARE ==
[2022-08-02 14:06] VITALS: BMI 36.2
[~2022-08-04 07:05] MED LIST changes: +LIDOCAINE 1% (10MG/ML) FOR IV START INTRADERMA PRN
[2022-08-04 07:51] VITALS: TEMP 97.7
[2022-08-04 07:51] LABS: Glucose,Whole Blood 112 mg/dL (70-110)
[2022-08-04] MEDS ORDERED: PHENYLEPHRINE-0.9% NACL SYG 1,000 MCG/10 ML SYRINGE ONE (08:01)
[2022-08-04] MEDS ORDERED: LIDOCAINE 2% INJ 20 MG/ML (2 ML VIAL) ONE (08:01)
[2022-08-04] MEDS ORDERED: PROPOFOL 10 MG/ML 20 ML VIAL IV ONE (08:01)
[2022-08-04] MEDS ORDERED: fentaNYL (PF) 50 MCG/ML 2 ML AMP ONE (08:01)
--- NOTE | 2022-08-04 08:01 | P.GSHP ---
History of Present Illness H&P Date: 08/04/22 CHIEF COMPLAINT: GERD and colon screen HISTORY OF PRESENT ILLNESS: The patient is a 72-year-old female who presents with gastroesophageal reflux disease and need for colon screen. Upper and lower endoscopy were offered for further evaluation and management. PAST MEDICAL HISTORY: Please see list. PAST SURGICAL HISTORY: Please see list. MEDICATIONS: Please see list. ALLERGIES: Please see list. SOCIAL HISTORY: No illicit drug use FAMILY HISTORY: No reports of Crohn disease or ulcerative colitis. REVIEW OF ORGAN SYSTEMS: CONSTITUTIONAL: No reports of fevers or chills. GI: Denies any blood in stools or constipation. PHYSICAL EXAM: VITAL SIGNS: Stable GENERAL: Well-developed pleasant in no acute distress. HEENT: No scleral icterus. Extraocular movements grossly intact. Moist buccal mucosa. NECK: Supple without lymphadenopathy. CHEST: Unlabored respirations. Equal bilateral excursions. CARDIOVASCULAR: Regular rate and rhythm. Distal 2+ pulses. ABDOMEN: Soft, nondistended. MUSCULOSKELETAL: No clubbing, cyanosis, or edema. ASSESSMENT: 1. Gastroesophageal reflux disease 2. Colon screen. PLAN: 1. Recommend proceeding with an upper and lower endoscopy Past Medical History Past Medical History: Coronary Artery Disease (CAD), Diabetes Mellitus, Eye Disorder, Fibromyalgia, GERD/Reflux, Hyperlipidemia, Hypertension, Myocardial Infarction ([place]), Osteoarthritis (OA), Skin Disorder, Vascular Disorder Additional Past Medical History / Comment(s): MIs x2, nephritis and had to receive hemodialysis twice-kidneys normal since, neuropathy bilateral hands/feet, bilateral eye glaucoma/retinopathy/retinal bleeds, DDD, chronic low back, hx recurrent buttock ulcerations, sinus problems, UTIs, past migraines, bladder leakage, unsteady gait. anemia, has la monitor Last Myocardial Infarction Date:: 12/2017 History of Any Multi-Drug Resistant Organisms: None Reported Past Surgical History: Bariatric Surgery, Cholecystectomy, Coronary Bypass/CABG, Heart Catheterization, Tubal Ligation Additional Past Surgical History / Comment(s): 12/2017 CABG 3 vessel, lap band, bilateral knee arthroscopy, bilateral carpal tunnel releases, R eye has (? metal) implant per pt d/t eyelid ligament problem, bilateral laser eye surgery for retinal bleeds, bilateral cataract removals/lens implants, bilateral hand trigger finger surgeries, EGD, colonoscopy, sinus surgery, pilonidal cystectomy, R temporal bx and mole removal, R trunk mole removal, pain clinic procedures. Past Anesthesia/Blood Transfusion Reactions: No Reported Reaction Additional Past Anesthesia/Blood Transfusion Reaction / Comment(s): Pt has received blood without reaction .claustrophobia Smoking Status: Former smoker - Past Family History Father Family Medical History: Cancer Additional Family Medical History / Comment(s): Pt does not recall type of cancer father had but it caused him to have an arm amputation. Mother Family Medical History: Myocardial Infarction ([place]) Additional Family Medical History / Comment(s): Mother of a [place] at the age of 58yrs. Medications and Allergies Home Medications Medication Instructions Recorded Confirmed Type Ergocalciferol [Vitamin D2 50,000 unit PO SA 09/11/14 08/02/22 History (DRISDOL)] Latanoprost Ophth [Xalatan 0.005%] 1 drop RIGHT EYE HS 09/11/14 08/02/22 History Clopidogrel [Plavix] 75 mg PO DAILY tab 02/03/18 08/02/22 Rx Multivitamins, Thera [Multivitamin 1 tab PO DAILY 07/19/18 08/02/22 History (formulary)] Ferrous Sulfate [Iron (65 MG 325 mg PO Q2D 11/29/18 08/02/22 History Elemental)] Fexofenadine HCl [Citlaly Allergy] 180 mg PO DAILY 11/29/18 08/02/22 History Metoprolol Tartrate [Lopressor] 25 mg PO BID 11/29/18 08/02/22 History Nitroglycerin Sl Tabs [Nitrostat] 0.4 mg SUBLINGUAL Q5M PRN 11/29/18 08/02/22 History metFORMIN HCL 500 mg PO DAILY 11/29/18 08/02/22 History Aspirin 81 mg PO HS 12/26/18 08/02/22 History Isosorbide Mononitrate ER [Imdur] 60 mg PO DAILY 01/23/19 08/02/22 History polyethylene glycoL 3350 [Miralax] 17 gm PO DAILY PRN 01/23/19 08/02/22 History INSULIN LISPRO (humaLOG) [humaLOG] 4 units SQ AC-TID 04/02/19 08/02/22 History Atorvastatin [Lipitor] 80 mg PO HS 06/04/19 08/02/22 History Furosemide [Lasix] 20 mg PO DAILY 06/04/19 08/02/22 History INSULIN LISPRO (humaLOG) [humaLOG] See Protocol SQ TID PRN 06/04/19 08/02/22 History Hydrocortisone Cream 1 applic TOPICAL DAILY PRN 10/18/21 08/02/22 History [Hydrocortisone 1% Cream] Insulin Glargine,Hum.rec.anlog 22 unit SQ HS 10/18/21 08/02/22 History [Lantus Solostar Pen] Omeprazole 40 mg PO DAILY 10/18/21 08/02/22 History Semaglutide [Ozempic] 1 mg SQ BATEMAN 10/18/21 08/04/22 History [place] [employer] Powder 1 applicate TOPICAL DIRECTED PRN 08/02/22 08/02/22 History Citalopram Hydrobromide 20 mg PO DAILY 08/02/22 08/02/22 History [Citalopram HBr] HYDROcodone/APAP 7.5-325MG [[place] 1 tab PO BID PRN 08/02/22 08/02/22 History 7.5-325] Mirabegron [Myrbetriq] 50 mg PO DAILY 08/02/22 08/02/22 History Nystatin Powder 1 applicate TOPICAL DIRECTED PRN 08/02/22 08/02/22 History Olopatadine HCl [Pataday] 1 drop BOTH EYES DIRECTED PRN 08/02/22 08/02/22 History Timolol 0.5% Ophth Soln [Timoptic 1 drop BOTH EYES BID 08/02/22 08/02/22 History 0.5% Ophth Soln] Triamcinolone Acetonide 1 spray EA NOSTRIL DIRECTED PRN 08/02/22 08/02/22 History [Triamcinolone Acetonide 0.055MG Nasal] Allergies Allergy/AdvReac Type Severity Reaction Status Date / Time diclofenac Allergy HIGH BLOOD Verified 08/04/22 07:39 SUGAR peanut Allergy PER Verified 08/04/22 07:39 ALLERGY TEST Penicillins Allergy ITCHING Verified 08/04/22 07:39 AND RED SKIN Surgical - Exam Vital Signs Temp Pulse Resp BP Pulse Ox 97.7 F 66 16 164/67 100 08/04/22 07:48 08/04/22 07:48 08/04/22 07:48 08/04/22 07:48 08/04/22 07:48 Results - Labs Abnormal Lab Results - Last 24 Hours (Table) 08/04/22 Range/Units 07:48 POC Glucose (mg/dL) 112 H (70-110) mg/dL
--- NOTE | 2022-08-04 08:17 | P.PCN ---
Date of Procedure: 08/04/22 Description of Procedure: PREOPERATIVE DIAGNOSIS: Gastroesophageal reflux disease. Morbid obesity. POSTOPERATIVE DIAGNOSIS: Gastroesophageal reflux disease. Morbid obesity. Gastritis. Adjustable gastric band OPERATION: Esophagogastroduodenoscopy with biopsies along antrum SURGEON: Mita Garces MD ANESTHESIA: MAC. INDICATIONS: The patient is a 72-year-old female who presents with reflux disease. Benefits and risks of the procedure were described. Informed consent was obtained. DESCRIPTION: The patient was brought into the endoscopy suite and laid in the left lateral decubitus position. An Olympus gastroscope was passed along the posterior oropharynx down to the distal esophagus where the squamocolumnar junction was encountered at 37 cm from the incisors. The stomach was entered and no bile reflux was found. Additional findings are listed below. Biopsies with cold forceps were obtained of the antrum. The first through third portion of the duodenum was examined. Retroflexion of the scope confirmed Hill grade 2 lower esophageal valve. The squamocolumnar junction demonstrated LA grade B erosive esophagitis. The stomach was desufflated. The patient tolerated the procedure well. FINDINGS: Squamocolumnar junction 37 cm from the incisors. Diaphragmatic hiatus at 37 cm. Hill grade 2 lower esophageal valve. LA grade B erosive esophagitis. 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
--- NOTE | 2022-08-04 08:35 | P.PCN ---
Date of Procedure: 08/04/22 Description of Procedure: PREOPERATIVE DIAGNOSIS: Personal history colon polyps POSTOPERATIVE DIAGNOSIS: Poor prep Personal history colon polyps OPERATION: Colonoscopy to the cecum SURGEON: Mita Garces MD. ANESTHESIA: MAC. INDICATIONS: The patient is a 72-year-old female who presents for colonoscopy screening. Last colonoscopy 5 years ago. Benefits and risks were described and informed consent was obtained. DESCRIPTION OF PROCEDURE: The patient had undergone MiraLAX prep. The patient had been brought into the operating room and laid in the left lateral decubitus position. After adequate intravenous sedation, the rectum was examined with 2% lidocaine jelly. External hemorrhoids were encountered. The rectal tone was within normal limits. No lesions were palpated in the rectal vault. An Olympus colonoscope was advanced requiring abdominal wall pressure. The prep was poor. No large adenomas obscuring the lumen was identified. No evidence of focal colitis was found. Retroflexion of the scope demonstrated grade 3 internal hemorrhoids without active bleeding or inflammation. The colon was desufflated. The patient had tolerated the procedure well. Withdrawal time was over 6 minutes. FINDINGS: Aronchick preparation quality scale 3+(1-5) Internal hemorrhoids, grade 1 No external prolapsed hemorrhoids. No arteriovenous malformations. No lumen obscuring adenomatous polyps. No focal colitis. RECOMMENDATIONS: Due to poor prep, repeat colonoscopy 2 years, 2023 Plan - Discharge Summary New Discharge Prescriptions: Continue Latanoprost Ophth [Xalatan 0.005%] 1 drop RIGHT EYE HS Ergocalciferol [Vitamin D2 (DRISDOL)] 50,000 unit PO SA Clopidogrel [Plavix] 75 mg PO DAILY tab Multivitamins, Thera [Multivitamin (formulary)] 1 tab PO DAILY Nitroglycerin Sl Tabs [Nitrostat] 0.4 mg SUBLINGUAL Q5M PRN PRN Reason: Chest Pain Metoprolol Tartrate [Lopressor] 25 mg PO BID Fexofenadine HCl [Citlaly Allergy] 180 mg PO DAILY metFORMIN HCL 500 mg PO DAILY Ferrous Sulfate [Iron (65 MG Elemental)] 325 mg PO Q2D Aspirin 81 mg PO HS polyethylene glycoL 3350 [Miralax] 17 gm PO DAILY PRN PRN Reason: Constipation Isosorbide Mononitrate ER [Imdur] 60 mg PO DAILY INSULIN LISPRO (humaLOG) [humaLOG] 4 units SQ AC-TID Atorvastatin [Lipitor] 80 mg PO HS Furosemide [Lasix] 20 mg PO DAILY INSULIN LISPRO (humaLOG) [humaLOG] See Protocol SQ TID PRN PRN Reason: Blood Sugar - High Omeprazole 40 mg PO DAILY Insulin Glargine,Hum.rec.anlog [Lantus Solostar Pen] 22 unit SQ HS HYDROcodone/APAP 7.5-325MG [[place] 7.5-325] 1 tab PO BID PRN PRN Reason: Pain Citalopram Hydrobromide [Citalopram HBr] 20 mg PO DAILY Olopatadine HCl [Pataday] 1 drop BOTH EYES DIRECTED PRN PRN Reason: itchy eyes Timolol 0.5% Ophth Soln [Timoptic 0.5% Ophth Soln] 1 drop BOTH EYES BID Hydrocortisone Cream [Hydrocortisone 1% Cream] 1 applic TOPICAL DAILY PRN PRN Reason: Itching Semaglutide [Ozempic] 1 mg SQ BATEMAN Mirabegron [Myrbetriq] 50 mg PO DAILY Triamcinolone Acetonide [Triamcinolone Acetonide 0.055MG Nasal] 1 spray EA NOSTRIL DIRECTED PRN PRN Reason: Runny Nose [place] [employer] Powder 1 applicate TOPICAL DIRECTED PRN PRN Reason: Rash Nystatin Powder 1 applicate TOPICAL DIRECTED PRN PRN Reason: Rash Discharge Medication List Ergocalciferol [Vitamin D2 (DRISDOL)] 50,000 unit PO SA 09/11/14 [History] Latanoprost Ophth [Xalatan 0.005%] 1 drop RIGHT EYE HS 09/11/14 [History] Clopidogrel [Plavix] 75 mg PO DAILY tab 02/03/18 [Rx] Multivitamins, Thera [Multivitamin (formulary)] 1 tab PO DAILY 07/19/18 [H istory] Ferrous Sulfate [Iron (65 MG Elemental)] 325 mg PO Q2D 11/29/18 [History] Fexofenadine HCl [Citlaly Allergy] 180 mg PO DAILY 11/29/18 [History] Metoprolol Tartrate [Lopressor] 25 mg PO BID 11/29/18 [History] Nitroglycerin Sl Tabs [Nitrostat] 0.4 mg SUBLINGUAL Q5M PRN 11/29/18 [History] metFORMIN HCL 500 mg PO DAILY 11/29/18 [History] Aspirin 81 mg PO HS 12/26/18 [History] Isosorbide Mononitrate ER [Imdur] 60 mg PO DAILY 01/23/19 [History] polyethylene glycoL 3350 [Miralax] 17 gm PO DAILY PRN 01/23/19 [History] INSULIN LISPRO (humaLOG) [humaLOG] 4 units SQ AC-TID 04/02/19 [History] Atorvastatin [Lipitor] 80 mg PO HS 06/04/19 [History] Furosemide [Lasix] 20 mg PO DAILY 06/04/19 [History] INSULIN LISPRO (humaLOG) [humaLOG] See Protocol SQ TID PRN 06/04/19 [History] Hydrocortisone Cream [Hydrocortisone 1% Cream] 1 applic TOPICAL DAILY PRN 10/18/21 [History] Insulin Glargine,Hum.rec.anlog [Lantus Solostar Pen] 22 unit SQ HS 10/18/21 [History] Omeprazole 40 mg PO DAILY 10/18/21 [History] Semaglutide [Ozempic] 1 mg SQ BATEMAN 10/18/21 [History] [place] Medical Powder 1 applicate TOPICAL DIRECTED PRN 08/02/22 [History] Citalopram Hydrobromide [Citalopram HBr] 20 mg PO DAILY 08/02/22 [History] HYDROcodone/APAP 7.5-325MG [[place] 7.5-325] 1 tab PO BID PRN 08/02/22 [History] Mirabegron [Myrbetriq] 50 mg PO DAILY 08/02/22 [History] Nystatin Powder 1 applicate TOPICAL DIRECTED PRN 08/02/22 [History] Olopatadine HCl [Pataday] 1 drop BOTH EYES DIRECTED PRN 08/02/22 [History] Timolol 0.5% Ophth Soln [Timoptic 0.5% Ophth Soln] 1 drop BOTH EYES BID 08/02/22 [History] Triamcinolone Acetonide [Triamcinolone Acetonide 0.055MG Nasal] 1 spray EA NOSTRIL DIRECTED PRN 08/02/22 [History] Follow up Appointment(s)/Referral(s): Mita Garces MD [STAFF PHYSICIAN] - 08/17/22 Patient Instructions/Handouts: Gastritis (DC), *Surgery [facility] - (Anesthesia) Endoscopy Discharge Instructions, Colonoscopy (DC) Activity/Diet/Wound Care/Special Instructions: Repeat colonoscopy in 2 years, 2023 due to poor prep Discharge Disposition: HOME SELF-CARE
[2022-08-04 08:40] VITALS: RESP 18
[2022-08-04 08:50] LABS: Glucose,Whole Blood 115 mg/dL (70-110)
[2022-08-04 09:17] VITALS: BP 130/61; PULSE 61
== END 2022-08-04 09:28 | disposition home or self-care (01) ==
LOC: ORWHC2ENDO 07:05
PROVIDERS: ATTEND Surgery Plastic and Reconstructive Surgery
DX: K21.9 Gastro-esophageal reflux disease without esophagitis (principal); K22.10 Ulcer of esophagus without bleeding; K29.50 Unspecified chronic gastritis without bleeding; E66.01 Morbid (severe) obesity due to excess calories; K64.4 Residual hemorrhoidal skin tags; K64.2 Third degree hemorrhoids; I25.10 Atherosclerotic heart disease of native coronary artery without angina pectoris; E11.9 Type 2 diabetes mellitus without complications; E78.5 Hyperlipidemia, unspecified; M79.7 Fibromyalgia; I10 Essential (primary) hypertension; I25.2 Old myocardial infarction; M19.90 Unspecified osteoarthritis, unspecified site; Z86.010 Personal history of colon polyps; Z98.84 Bariatric surgery status; Z90.49 Acquired absence of other specified parts of digestive tract; Z95.1 Presence of aortocoronary bypass graft; Z98.51 Tubal ligation status; Z98.890 Other specified postprocedural states; Z87.891 Personal history of nicotine dependence; Z82.49 Family history of ischemic heart disease and other diseases of the circulatory system; Z79.899 Other long term (current) drug therapy; Z79.82 Long term (current) use of aspirin; Z68.1 Body mass index [BMI] 19.9 or less, adult
CPT/HCPCS: 88305; 45378; 43239; J3010; J2370; J2704; J2001

== ENCOUNTER → 2022-10-18 | Outpatient (CLI) | payer MEDICARE ==
[2022-10-18 15:10] VITALS: BP 186/92; PULSE 90; TEMP 98.3; BMI 36.0
--- NOTE | 2022-10-18 15:22 | P.HPBAR ---
Bariatric H&P - History & Physicial H&P Date: 10/18/22 History & Physicial: Visit/CC: lap band Patient initial contact: Initial weight: Initial weight in pounds: Height: 5 ft 7.25 in Initial BMI: Last weight: Current weight: 105.233 kg Current weight in pounds: 232.00 Current BMI: 36.0 [place] body weight (based on NIH guidelines): 61.802 kg Excess body weight loss: The patient is a 72 year-old F who presents for Bariatric Assessment. Patient has had some complaints of dysphagia. She wishes a fluid removed. Past Medical History Past Medical History: Coronary Artery Disease (CAD), Diabetes Mellitus, Eye Disorder, Fibromyalgia, GERD/Reflux, Hyperlipidemia, Hypertension, Myocardial Infarction (MN), Osteoarthritis (OA), Skin Disorder, Vascular Disorder Additional Past Medical History / Comment(s): MIs x2, nephritis and had to receive hemodialysis twice-kidneys normal since, neuropathy bilateral hands/feet, bilateral eye glaucoma/retinopathy/retinal bleeds, DDD, chronic low back, hx recurrent buttock ulcerations, sinus problems, UTIs, past migraines, bladder leakage, unsteady gait. anemia, has la monitor Last Myocardial Infarction Date:: 12/2017 History of Any Multi-Drug Resistant Organisms: None Reported Past Surgical History: Bariatric Surgery, Cholecystectomy, Coronary Bypass/CABG, Heart Catheterization, Tubal Ligation Additional Past Surgical History / Comment(s): 12/2017 CABG 3 vessel, lap band, bilateral knee arthroscopy, bilateral carpal tunnel releases, R eye has (? metal) implant per pt d/t eyelid ligament problem, bilateral laser eye surgery for retinal bleeds, bilateral cataract removals/lens implants, bilateral hand trigger finger surgeries, EGD, colonoscopy, sinus surgery, pilonidal cystectomy, R temporal bx and mole removal, R trunk mole removal, pain clinic procedures. Past Anesthesia/Blood Transfusion Reactions: No Reported Reaction Additional Past Anesthesia/Blood Transfusion Reaction / Comm: Pt has received blood without reaction .claustrophobia Past Psychological History: No Psychological Hx Reported Additional Psychological History / Comment(s): . Smoking Status: Former smoker Past Alcohol Use History: None Reported Additional Past Alcohol Use History / Comment(s): Pt started smoking in 1966 and quit in 1988. Past Drug Use History: None Reported - Past Family History Father Family Medical History: Cancer Additional Family Medical History / Comment(s): Pt does not recall type of cancer father had but it caused him to have an arm amputation. Mother Family Medical History: Myocardial Infarction (MN) Additional Family Medical History / Comment(s): Mother of a MN at the age of 58yrs. Surgical - Exam Vital Signs Temp Pulse BP 98.3 F 90 186/92 10/18/22 15:04 10/18/22 15:04 10/18/22 15:04 - General well developed, well nourished, no distress - Eyes PERRL - ENT normal pinna - Neck no masses - Respiratory normal expansion - Cardiovascular Rhythm: regular - Abdomen Abdomen: soft, non tender Bariatric Assessment & Plan Plan: Patient's LAP-BAND was empty. She had 8 mL refer band. She will follow-up in 4 weeks. Bariatric Checklist Checklist: Plan: Checklist: EGD: 1. Hiatal hernia: 2. H. Pylori: HgbA1c: Vitamin D: Smoking: Former smoker Primary care physician referral: Dr. Osborn Psychiatry clearance: Cardiology clearance: Sleep study: Diet journal: VTE risk score: VTE risk level: Rehab needs at discharge:
== END ==
LOC: BARWHC3 14:38
PROVIDERS: ATTEND Surgery
DX: Z48.815 Encounter for surgical aftercare following surgery on the digestive system (principal); E66.01 Morbid (severe) obesity due to excess calories; Z68.36 Body mass index [BMI] 36.0-36.9, adult; Z88.0 Allergy status to penicillin; Z91.010 Allergy to peanuts; Z88.6 Allergy status to analgesic agent; Z87.891 Personal history of nicotine dependence; M19.90 Unspecified osteoarthritis, unspecified site; K21.9 Gastro-esophageal reflux disease without esophagitis; E78.5 Hyperlipidemia, unspecified; I10 Essential (primary) hypertension; E11.9 Type 2 diabetes mellitus without complications; Z79.4 Long term (current) use of insulin; Z79.899 Other long term (current) drug therapy; Z98.84 Bariatric surgery status
CPT/HCPCS: 99212

== ENCOUNTER → 2022-11-10 | Outpatient (CLI) | payer MEDICARE ==
--- NOTE | 2022-11-11 08:33 | MM ---
Reason for Exam: Screening (asymptomatic). Last mammogram was performed 1 year(s) and 4 month(s) ago. Patient History: Menarche at age 17. Patient has no children. Postmenopausal. Risk Values: Nia 5 year model risk: 1.8%. NCI Lifetime model risk: 4.6%. Prior Study Comparison: 09/13/2018 Bilateral Screening Mammogram, [facility]. 11/29/2019 Bilateral Screening Mammogram, [facility]. 07/02/2021 Bilateral Screening Mammogram, [facility]. Tissue Density: There are scattered fibroglandular densities. Findings: Analyzed By CAD. A few small scattered benign-appearing round calcifications are redemonstrated bilaterally. There is benign appearing vascular calcifications in the right breast again seen. Benign-appearing bilateral axillary lymph nodes are redemonstrated. There is no suspicious new group of microcalcifications or new suspicious mass in either breast. Overall Assessment: Benign, BI-RAD 2 Management: Screening Mammogram of both breasts in 1 year. A clinical breast exam by your physician is recommended on an annual basis and results should be correlated with mammographic findings. Electronically signed and approved by: Oni Heredia M.D.
== END | disposition home or self-care (01) ==
LOC: RADMAMWWP 08:10
PROVIDERS: ATTEND Family Medicine
DX: Z12.31 Encounter for screening mammogram for malignant neoplasm of breast (principal); Z78.0 Asymptomatic menopausal state
CPT/HCPCS: 77063; 77067

== ENCOUNTER → 2022-11-16 | Outpatient (CLI) | payer MEDICARE ==
[2022-11-18 06:41] LABS: ALT 25 U/L (8-44); AST 22 U/L (13-35); Albumin 3.8 g/dL (3.8-4.9); Albumin/Globulin Ratio 1.27 (1.60-3.17); Alkaline Phosphatase 87 U/L (41-126); BUN/Creat Ratio 18.22 Ratio (12.00-20.00); Blood Urea Nitrogen 16.4 mg/dL (9.0-27.0); Calcium 9.5 mg/dL (8.7-10.3); Carbon Dioxide 19.1 mmol/L (20.0-27.5); Chloride 108 mmol/L (96-109); Chol/HDL Ratio 2.52 Ratio; Glucose 107 mg/dL (70-110); LDL Cholesterol,Calculated 40.3 mg/dL (0.0-131.0); Non-African American GFR(CKD) 63.9 (60.0-200.0); Potassium 4.8 mmol/L (3.5-5.5); Sodium 140 mmol/L (135-145); Total Protein 6.8 g/dL (6.2-8.2)
== END | disposition home or self-care (01) ==
LOC: LABWHC1 07:08
PROVIDERS: ATTEND Nurse Practitioner Adult Health
DX: I10 Essential (primary) hypertension (principal); E78.2 Mixed hyperlipidemia
CPT/HCPCS: 36415; 80053; 80061

== ENCOUNTER → 2023-05-11 | Outpatient (CLI) | payer MEDICARE ==
[2023-05-11 11:17] LABS: ALT 24 U/L (8-44); AST 23 U/L (13-35); Albumin 3.7 d/dL (3.8-4.9); Albumin/Globulin Ratio 1.09 Ratio (1.60-3.17); Alkaline Phosphatase 83 U/L (41-126); BUN/Creat Ratio 18.56 Ratio (12.00-20.00); Blood Urea Nitrogen 16.7 mg/dL (9.0-27.0); Calcium 9.3 mg/dL (8.7-10.3); Carbon Dioxide 22.6 mmol/L (21.6-31.8); Chloride 107 mmol/L (96-109); Chol/HDL Ratio 2.61 Ratio; Globulin 3.4 d/dL (1.6-3.3); Glucose 167 mg/dL (70-110); LDL Cholesterol,Calculated 66.3 mg/dL (0.0-131.0); Potassium 4.8 mmol/L (3.5-5.5); Sodium 140 mmol/L (135-145); Total Bilirubin 0.5 mg/dL (0.3-1.2); Total Protein 7.1 d/dL (6.2-8.2)
== END | disposition home or self-care (01) ==
LOC: LABWHC1 06:37
PROVIDERS: ATTEND Internal Medicine Interventional Cardiology
DX: I10 Essential (primary) hypertension (principal); E78.2 Mixed hyperlipidemia
CPT/HCPCS: 36415; 80053; 80061

== ENCOUNTER → 2023-07-12 | Outpatient (CLI) | payer MEDICARE ==
[2023-07-12 08:34] LABS: Appearance,Urine Clear (Clear); Bilirubin,Urine Negative (Negative); Blood,Urine Negative (Negative); Color,Urine Colorless; Glucose,Urine (UA) 4+ (Negative); Hyaline Casts,Urine 3 /lpf (0-2); Ketones,Urine Negative (Negative); Leukocyte Esterase,Urine Small (Negative); Mucus,Urine Rare /hpf; Nitrite,Urine Negative (Negative); Protein,Urine Negative (Negative); RBC,Urine 1 /hpf (0-5); Specific Gravity,Urine 1.017 (1.001-1.035); Squamous Epithelial Cell,Urine 1 /hpf (0-4); Urobilinogen,Urine <2.0 mg/dL (<2.0); WBC,Urine 34 /hpf (0-5)
[2023-07-12 09:41] LABS: Creatinine,Urine Random 53.7 mg/dL; Protein/Creatinine Ratio,Urine 0.41
[2023-07-12 11:29] LABS: Basophils # (A) 0.02 X 10*3/uL (0.00-0.10); Basophils % (A) 0.3 %; Eosinophils # (A) 0.21 X 10*3/uL (0.04-0.35); Eosinophils % (A) 3.2 %; HCT 35.3 % (37.2-46.3); HGB 11.8 d/dL (12.0-15.0); Lymphocytes # (A) 1.28 X 10*3/uL (0.90-5.00); Lymphocytes % (A) 19.8 %; MCH 33.1 pg (27.0-32.0); MCHC 33.4 d/dL (32.0-37.0); MCV 98.9 FL (80.0-97.0); Mean Platelet Volume 9.5 FL (9.5-12.2); Monocytes # (A) 0.34 X 10*3/uL (0.20-1.00); Monocytes % (A) 5.3 %; NRBC Per 100 WBC 0 X 10*3/uL (0.00-0.01); Neutrophils # (A) 4.55 X 10*3/uL (1.80-7.70); Neutrophils % (A) 70.3 %; Platelet Count 237 X 10*3/uL (140-440); RBC 3.57 X 10*6/uL (4.10-5.20); WBC 6.47 X 10*3/uL (4.50-10.00)
[2023-07-12 13:47] LABS: % Iron Saturation 19.32 (12.00-45.00); ALT 22 U/L (8-44); AST 23 U/L (13-35); Albumin/Globulin Ratio 1.21 Ratio (1.60-3.17); Alkaline Phosphatase 125 U/L (41-126); Blood Urea Nitrogen 20.5 mg/dL (9.0-27.0); Calcium 9.1 mg/dL (8.7-10.3); Chloride 109 mmol/L (96-109); Chol/HDL Ratio 2.44 Ratio; Globulin 3.3 d/dL (1.6-3.3); Glucose 154 mg/dL (70-110); Iron 57 UG/DL (50-170); LDL Cholesterol,Calculated 43.6 mg/dL (0.0-131.0); Magnesium 2.2 mg/dL (1.5-2.4); Phosphorus 3.6 mg/dL (2.4-5.1); Potassium 4.3 mmol/L (3.5-5.5); Sodium 141 mmol/L (135-145); Total Bilirubin 0.3 mg/dL (0.3-1.2); Total Iron Binding Capacity 295 UG/DL (228-460); Total Protein 7.3 d/dL (6.2-8.2)
== END | disposition home or self-care (01) ==
LOC: LABWHC1 06:41
PROVIDERS: ATTEND Internal Medicine
DX: E11.65 Type 2 diabetes mellitus with hyperglycemia (principal); E55.9 Vitamin D deficiency, unspecified; N25.81 Secondary hyperparathyroidism of renal origin; M10.9 Gout, unspecified; N39.0 Urinary tract infection, site not specified; D64.9 Anemia, unspecified; D63.1 Anemia in chronic kidney disease; N18.31 Chronic kidney disease, stage 3a; E11.22 Type 2 diabetes mellitus with diabetic chronic kidney disease; R80.9 Proteinuria, unspecified
CPT/HCPCS: 36415; 80053; 80061; 81001; 82043; 82306; 82570; 82728; 83036; 83540; 83550; 83735; 83970; 84100; 84156; 84550; 85025; 87086

== ENCOUNTER → 2023-09-06 | Outpatient (CLI) | payer MEDICARE ==
--- NOTE | 2023-09-06 09:01 | XR ---
EXAMINATION TYPE: XR knee complete bilateral DATE OF EXAM: 09/06/2023 COMPARISON: NONE HISTORY: Pain TECHNIQUE: Three views are submitted. FINDINGS: Right knee: There is severe narrowing with marginal spurring of the medial compartment knee joint and patellofemoral moderate arthropathy. Small amount of fluid in the suprapatellar bursa. Vascular calc ifications and diffuse osteopenia. Left knee: There is moderate to severe narrowing with marginal spurring of the medial compartment kne e joint and patellofemoral moderate arthropathy. Small amount of fluid in the suprapatellar bursa. Va scular calcifications and diffuse osteopenia. IMPRESSION: 1. Moderate to severe left and severe right osteoarthritis of the knee. 2. Small suprapatellar bursal fluid collections.
== END | disposition home or self-care (01) ==
LOC: RADXRMAIN 07:13
PROVIDERS: ATTEND Physical Medicine & Rehabilitation Pain Medicine
DX: M17.0 Bilateral primary osteoarthritis of knee (principal)

== ENCOUNTER 2023-12-04 06:34 | Emergency (ER) | payer MEDICARE ==
[2023-12-04 06:58] VITALS: RESP 18; TEMP 98.1
--- NOTE | 2023-12-04 07:29 | ED ---
General Adult HPI - General Chief complaint: Extremity Problem,Nontraumatic Stated complaint: possible clot in leg Time Seen by Provider: 12/04/23 07:00 Source: patient, RN notes reviewed, old records reviewed Mode of arrival: ambulatory Limitations: no limitations - History of Present Illness Initial comments: This is a 73-year-old female presents emergency department complaining that she has pain in the posterior aspect of her thigh as well as her calf and she thinks it is a little bit swollen so she is concerned about a clot in her leg. Patient Nuys any difficulty breathing or chest pain. Patient states this started a couple days ago. Patient denies any fever chills patient Nuys any redness. Patient denies any other symptoms at this time - Related Data Home Medications Medication Instructions Recorded Confirmed Ergocalciferol [Vitamin D2 50,000 unit PO SA 09/11/14 11/22/22 (DRISDOL)] Latanoprost Ophth [Xalatan 0.005%] 1 drop RIGHT EYE HS 09/11/14 11/22/22 Multivitamins, Thera [Multivitamin 1 tab PO DAILY 07/19/18 11/22/22 (formulary)] Fexofenadine HCl [Citlaly Allergy] 180 mg PO DAILY 11/29/18 11/22/22 Metoprolol Tartrate [Lopressor] 25 mg PO BID 11/29/18 11/22/22 Nitroglycerin Sl Tabs [Nitrostat] 0.4 mg SUBLINGUAL Q5M PRN 11/29/18 11/22/22 metFORMIN HCL 500 mg PO DAILY 11/29/18 11/22/22 Aspirin 81 mg PO HS 12/26/18 11/22/22 Isosorbide Mononitrate ER [Imdur] 60 mg PO DAILY 01/23/19 11/22/22 polyethylene glycoL 3350 [Miralax] 17 gm PO DAILY PRN 01/23/19 11/22/22 INSULIN LISPRO (humaLOG) [humaLOG] 4 units SQ AC-TID 04/02/19 11/22/22 Atorvastatin [Lipitor] 80 mg PO HS 06/04/19 11/22/22 Furosemide [Lasix] 20 mg PO DAILY 06/04/19 11/22/22 INSULIN LISPRO (humaLOG) [humaLOG] See Protocol SQ TID PRN 06/04/19 11/22/22 Hydrocortisone Cream 1 applic TOPICAL DAILY PRN 10/18/21 11/22/22 [Hydrocortisone 1% Cream] Insulin Glargine,Hum.rec.anlog 22 unit SQ HS 10/18/21 11/22/22 [Lantus Solostar Pen] Omeprazole 40 mg PO DAILY 10/18/21 11/22/22 Semaglutide [Ozempic] 1 mg SQ BATEMAN 10/18/21 11/22/22 Citalopram Hydrobromide 20 mg PO DAILY 08/02/22 11/22/22 [Citalopram HBr] HYDROcodone/APAP 7.5-325MG [[place] 1 tab PO BID PRN 08/02/22 11/22/22 7.5-325] Mirabegron [Myrbetriq] 50 mg PO DAILY 08/02/22 11/22/22 Olopatadine HCl [Pataday] 1 drop BOTH EYES DIRECTED PRN 08/02/22 11/22/22 Timolol 0.5% Ophth Soln [Timoptic 1 drop BOTH EYES BID 08/02/22 11/22/22 0.5% Ophth Soln] Losartan Potassium [Cozaar] 25 mg PO DAILY 10/18/22 11/22/22 Previous Rx's Medication Instructions Recorded Clopidogrel [Plavix] 75 mg PO DAILY tab 02/03/18 Allergies Allergy/AdvReac Type Severity Reaction Status Date / Time diclofenac Allergy HIGH BLOOD Verified 12/04/23 06:39 SUGAR peanut Allergy PER Verified 12/04/23 06:39 ALLERGY TEST Penicillins Allergy ITCHING Verified 12/04/23 06:39 AND RED SKIN Review of Systems ROS Statement: Those systems with pertinent positive or pertinent negative responses have been documented in the HPI. ROS Other: All systems not noted in ROS Statement are negative. Past Medical History Past Medical History: Coronary Artery Disease (CAD), Diabetes Mellitus, Eye Disorder, Fibromyalgia, GERD/Reflux, Hyperlipidemia, Hypertension, Myocardial Infarction ([place]), Osteoarthritis (OA), Skin Disorder, Vascular Disorder Additional Past Medical History / Comment(s): MIs x2, nephritis and had to receive hemodialysis twice-kidneys normal since, neuropathy bilateral hands/feet, bilateral eye glaucoma/retinopathy/retinal bleeds, DDD, chronic low back, hx recurrent buttock ulcerations, sinus problems, UTIs, past migraines, bladder leakage, unsteady gait. anemia, has la monitor Last Myocardial Infarction Date:: 12/2017 History of Any Multi-Drug Resistant Organisms: None Reported Past Surgical History: Bariatric Surgery, Cholecystectomy, Coronary Bypass/CABG, Heart Catheterization, Tubal Ligation Additional Past Surgical History / Comment(s): 12/2017 CABG 3 vessel, lap band, bilateral knee arthroscopy, bilateral carpal tunnel releases, R eye has (? metal) implant per pt d/t eyelid ligament problem, bilateral laser eye surgery for retinal bleeds, bilateral cataract removals/lens implants, bilateral hand trigger finger surgeries, EGD, colonoscopy, sinus surgery, pilonidal cystectomy, R temporal bx and mole removal, R trunk mole removal, pain clinic procedures. Past Anesthesia/Blood Transfusion Reactions: No Reported Reaction Additional Past Anesthesia/Blood Transfusion Reaction / Comment(s): Pt has received blood without reaction .claustrophobia Past Psychological History: No Psychological Hx Reported Smoking Status: Former smoker Past Alcohol Use History: None Reported Past Drug Use History: None Reported - Past Family History Father Family Medical History: Cancer Additional Family Medical History / Comment(s): Pt does not recall type of cancer father had but it caused him to have an arm amputation. Mother Family Medical History: Myocardial Infarction (HI) Additional Family Medical History / Comment(s): Mother of a HI at the age of 58yrs. General Exam - General Exam Comments Initial Comments: GENERAL: Patient is well-developed and well-nourished. Patient is nontoxic and well- hydrated and is in mild distress. ENT: Neck is soft and supple. No significant lymphadenopathy is noted. Oropharynx is clear. Moist mucous membranes. Neck has full range of motion without eliciting any pain. EYES: The sclera were anicteric and conjunctiva were pink and moist. Extraocular movements were intact and pupils were equal round and reactive to light. Eyelids were unremarkable. PULMONARY: Unlabored respirations. Good breath sounds bilaterally. No audible rales rhonchi or wheezing was noted. CARDIOVASCULAR: There is a regular rate and rhythm without any murmurs gallops or rubs. SKIN: Skin is clear with no lesions or rashes and otherwise unremarkable. NEUROLOGIC: Patient is alert and oriented x3. Cranial nerves II through XII are grossly intact. Motor and sensory are also intact. Normal speech, volume and content. Symmetrical smile. MUSCULOSKELETAL: Normal extremities with adequate strength and full range of motion. There is no swelling of the leg however there is some tenderness when I palpate the posterior thigh and calf LYMPHATICS: No significant lymphadenopathy is noted PSYCHIATRIC: Normal psychiatric evaluation. Limitations: no limitations Course Vital Signs 12/04/23 06:36 Temperature 98.1 F Pulse Rate 85 Respiratory 18 Rate Blood Pressure 149/74 O2 Sat by Pulse 98 Oximetry Medical Decision Making - Medical Decision Making Was pt. sent in by a medical professional or institution (, DORYS, CHEMISTRY QUALITY CONTROL TECHNICIAN, urgent ca re, hospital, or [facility]cf...) When possible be specific @ -No Did you speak to anyone other than the patient for history (EMS, parent, family, police, friend...)? What history was obtained from this source @ -No Did you review nursing and triage notes (agree or disagree)? Why? @ -I reviewed and agree with nursing and triage notes Were old charts reviewed (outside hosp., previous admission, EMS record, old EKG, old radiological studies, urgent care reports/EKG's, ch[facility] records)? Report findings @ -No old charts were reviewed Differential Diagnosis (chest pain, altered mental status, abdominal pain women, abdominal pain men, vaginal bleeding, weakness, fever, dyspnea, syncope, headache, dizziness, GI bleed, back pain, seizure, CVA, palpatations, mental health, musculoskeletal)? @ -Differential Musculoskeletal Muscular strain, contusion, ligament sprain, fracture, arthritis, septic arthritis, bursitis, cellulitis, muscle spasm, nerve compression, DVT, arterial occlusion, herpes zoster, electrolyte abnormality, tumor.... This is not meant to be in all inclusive list EKG interpreted by me (3pts min.). @ -As above X-rays interpreted by me (1pt min.). @ -None done CT interpreted by me (1pt min.). @ -None done U/S interpreted by me (1pt. min.). @ -Ultrasound showed no DVT but did show a Beck's cyst What testing was considered but not performed or refused? (CT, X-rays, U/S, labs)? Why? @ -None What meds were considered but not given or refused? Why? @ -None Did you discuss the management of the patient with other professionals (professionals i.e. , PA, CHEMISTRY QUALITY CONTROL TECHNICIAN, lab, RT, psych nurse, school social worker, telephone supervisor, teacher, community resource officer, shelter case manager)? Give summary @ -No Was smoking cessation discussed for >3mins.? @ -No Was critical care preformed (if so, how long)? @ -No Were there social determinants of health that impacted care today? How? (Homelessness, low income, unemployed, alcoholism, drug addiction, transportation, low edu. Level, literacy, decrease access to med. care, alf, rehab)? @ -No Was there de-escalation of care discussed even if they declined (Discuss DNR or withdrawal of care, Hospice)? DNR status @ -No What co-morbidities impacted this encounter? (DM, HTN, Smoking, COPD, CAD, Cancer, CVA, ARF, Chemo, Hep., AIDS, mental health diagnosis, sleep apnea, morbid obesity)? @ -None Was patient admitted / discharged? Hospital course, mention meds given and route, prescriptions, significant lab abnormalities, going to OR and other pertinent info. @ -Patient received a shot of Toradol which did help her pain. Ultrasound showed a Beck's cyst she will follow-up with orthopedics if the pain persists Undiagnosed new problem with uncertain prognosis? @ -No Drug Therapy requiring intensive monitoring for toxicity (Heparin, Nitro, Insulin, Cardizem)? @ -No Were any procedures done? @ -No Diagnosis/symptom? @ -Beck's cyst Acute, or Chronic, or Acute on Chronic? @ -Acute Uncomplicated (without systemic symptoms) or Complicated (systemic symptoms)? @ -Complicated Side effects of treatment? @ -No Exacerbation, Progression, or Severe Exacerbation? @ -No Poses a threat to life or bodily function? How? (Chest pain, [place], [place], pneumonia, PE, COPD, DKA, ARF, appy, cholecystitis, CVA, Diverticulitis, Homicidal, Suicidal, threat to staff... and all critical care pts) @ -No Disposition Clinical Impression: Bakers cyst Disposition: HOME SELF-CARE Condition: Good Instructions (If sedation given, give patient instructions): Beck Cyst (ED) Is patient prescribed a controlled substance at d/c from ED?: No Referrals: Gonzales Tesfaye MD [Primary Care Provider] - 1-2 days Time of Disposition: 08:36
[2023-12-04] MEDS: KETOROLAC 15 MG/ML 1 ML VIAL IM STA (08:08)
--- NOTE | 2023-12-04 08:34 | US ---
EXAMINATION TYPE: US venous doppler duplex LE RT DATE OF EXAM: 12/04/2023 8:27 AM COMPARISON: NONE CLINICAL INDICATION: Female, 73 years old with history of Posterior leg pain; patient is obese, has f ibromyalgia and arthritis, now having calf crmaping and pain shooting own back of right thigh, no h/o dvt SIDE PERFORMED: Right TECHNIQUE: The lower extremity deep venous system is examined utilizing real time linear array sonog michelle with graded compression, doppler sonography and color-flow sonography. VESSELS IMAGED: Common Femoral Vein Deep Femoral Vein Greater Saphenous Vein * Femoral Vein Popliteal Vein Small Saphenous Vein * Proximal Calf Veins (* superficial vessels) Right Leg: Negative for DVT 5.2cm probable Beck's cyst within pop fossa IMPRESSION: Grayscale, color doppler, spectral doppler imaging performed of the deep veins of the lo wer extremities. There is normal flow, compressibility, vascular waveforms.
[2023-12-04 09:16] VITALS: BP 139/78; PULSE 82
== END 2023-12-04 08:51 | disposition home or self-care (01) ==
LOC: EC 06:34
DX: M71.22 Synovial cyst of popliteal space [Baker], left knee (principal); E11.36 Type 2 diabetes mellitus with diabetic cataract; E66.9 Obesity, unspecified; E78.5 Hyperlipidemia, unspecified; I10 Essential (primary) hypertension; I25.10 Atherosclerotic heart disease of native coronary artery without angina pectoris; I25.2 Old myocardial infarction; K21.9 Gastro-esophageal reflux disease without esophagitis; Z87.891 Personal history of nicotine dependence; Z79.84 Long term (current) use of oral hypoglycemic drugs; Z68.39 Body mass index [BMI] 39.0-39.9, adult; Z79.4 Long term (current) use of insulin; Z95.1 Presence of aortocoronary bypass graft; Z79.82 Long term (current) use of aspirin; Z91.010 Allergy to peanuts; Z88.0 Allergy status to penicillin; Z88.1 Allergy status to other antibiotic agents
CPT/HCPCS: 99284; 96372; 93971; J1885

== ENCOUNTER → 2024-01-10 | Outpatient (CLI) | payer MEDICARE ==
[2024-01-10 09:23] LABS: Creatinine,Urine Random 133.2 mg/dL; Protein/Creatinine Ratio,Urine 0.135
[2024-01-10 11:10] LABS: Basophils # (A) 0.03 X 10*3/uL (0.00-0.10); Basophils % (A) 0.5 %; Eosinophils % (A) 4.5 %; HCT 38.8 % (37.2-46.3); HGB 12.2 g/dL (12.0-15.0); Lymphocytes # (A) 1.38 X 10*3/uL (0.90-5.00); Lymphocytes % (A) 20.9 %; MCH 31.4 pg (27.0-32.0); MCHC 31.4 g/dL (32.0-37.0); Mean Platelet Volume 9.4 FL (9.5-12.2); Monocytes # (A) 0.39 X 10*3/uL (0.20-1.00); Monocytes % (A) 5.9 %; NRBC Per 100 WBC 0 X 10*3/uL (0.00-0.01); Neutrophils # (A) 4.49 X 10*3/uL (1.80-7.70); Neutrophils % (A) 67.9 %; Platelet Count 231 X 10*3/uL (140-440); RBC 3.88 X 10*6/uL (4.10-5.20); RDW 14.3 % (11.5-14.5); WBC 6.61 X 10*3/uL (4.50-10.00)
[2024-01-10 11:33] LABS: % Iron Saturation 23.13 (12.00-45.00); Albumin 3.8 g/dL (3.8-4.9); Calcium 9.4 mg/dL (8.7-10.3); Carbon Dioxide 21.4 mmol/L (21.6-31.8); Chloride 105 mmol/L (96-109); Glucose 139 mg/dL (70-110); Iron 65 UG/DL (50-170); Magnesium 2.1 mg/dL (1.5-2.4); Potassium 4.5 mmol/L (3.5-5.5); Sodium 138 mmol/L (135-145); Total Iron Binding Capacity 281 UG/DL (228-460); Uric Acid 4.8 mg/dL (2.9-7.7)
[2024-01-10 12:19] LABS: Appearance,Urine Clear (Clear); Bilirubin,Urine Negative (Negative); Blood,Urine Negative (Negative); Color,Urine Yellow (Yellow); Ketones,Urine Negative (Negative); Nitrite,Urine Negative (Negative); PH, Urine 5.5; Specific Gravity,Urine 1.028 (1.001-1.030)
[2024-01-10 15:26] LABS: Bacteria,Urine 3+ (None Seen); Calcium Oxalate Crystals,Urine Present (None Seen)
== END | disposition home or self-care (01) ==
LOC: LABWHC1 07:09
PROVIDERS: ATTEND Internal Medicine Nephrology
DX: N18.2 Chronic kidney disease, stage 2 (mild) (principal); D63.1 Anemia in chronic kidney disease; M10.9 Gout, unspecified; N39.0 Urinary tract infection, site not specified; R80.9 Proteinuria, unspecified
CPT/HCPCS: 36415; 80048; 81001; 82040; 82570; 82728; 83540; 83550; 83735; 84156; 84550; 85025

== ENCOUNTER → 2024-01-18 | Outpatient (CLI) | payer MEDICARE ==
--- NOTE | 2024-01-18 10:02 | US ---
EXAMINATION TYPE: US kidneys/renal and bladder DATE OF EXAM: 01/18/2024 COMPARISON: 2020 CLINICAL INDICATION: Female, 73 years old with history of N18.31 CHRONIC KIDNEY DISEASE, STAGE 3A; EXAM MEASUREMENTS: Right Kidney: 9.1 x 3.9 x 4.2 cm Left Kidney: 10.6 x 5.1 x 5.3 cm Right Kidney: No hydronephrosis or masses seen Left Kidney: No hydronephrosis or masses seen Bladder: Patient voided prior to exam, declined to fill bladder today. Bilateral Jets seen: No There is no evidence for hydronephrosis at this point in time. No nephrolithiasis is seen. No jeffry s are identified. The urinary bladder is anechoic. Bilateral ureteral jets are seen. IMPRESSION: No evidence for obstructive uropathy or calculus.
== END | disposition home or self-care (01) ==
LOC: RADUSWWP 09:23
PROVIDERS: ATTEND Internal Medicine Nephrology
DX: N18.31 Chronic kidney disease, stage 3a (principal)
CPT/HCPCS: 76770

== ENCOUNTER → 2024-07-19 | Outpatient (CLI) | payer MEDICARE ==
[2024-07-19 10:29] LABS: ALT 33 U/L (8-44); AST 40 U/L (13-35); Albumin 3.5 g/dL (3.8-4.9); Albumin/Globulin Ratio 1.06 Ratio (1.60-3.17); Alkaline Phosphatase 92 U/L (41-126); Blood Urea Nitrogen 16.5 mg/dL (9.0-27.0); Calcium 8.7 mg/dL (8.7-10.3); Carbon Dioxide 23.6 mmol/L (21.6-31.8); Chloride 108 mmol/L (96-109); Chol/HDL Ratio 2.24 Ratio; Globulin 3.3 g/dL (1.6-3.3); Glucose 126 mg/dL (70-110); LDL Cholesterol,Calculated 39.3 mg/dL (0.0-131.0); Potassium 4.2 mmol/L (3.5-5.5); Sodium 141 mmol/L (135-145); Total Bilirubin 0.4 mg/dL (0.3-1.2); Total Protein 6.8 g/dL (6.2-8.2)
== END | disposition home or self-care (01) ==
LOC: LABWHC1 07:02
PROVIDERS: ATTEND Internal Medicine Interventional Cardiology
DX: E78.2 Mixed hyperlipidemia (principal); I10 Essential (primary) hypertension
CPT/HCPCS: 36415; 80053; 80061

== ENCOUNTER → 2025-01-23 | Outpatient (CLI) | payer MEDICARE ==
[2025-01-23 10:46] LABS: ALT 22 U/L (8-44); AST 25 U/L (13-35); Chol/HDL Ratio 2.29 Ratio; LDL Cholesterol,Calculated 38.8 mg/dL (0.0-131.0)
== END | disposition home or self-care (01) ==
LOC: LABWHC1 06:54
PROVIDERS: ATTEND Internal Medicine Interventional Cardiology
DX: E78.2 Mixed hyperlipidemia (principal)
CPT/HCPCS: 36415; 80061; 84450; 84460